=== PATIENT | male | born 1965 | race Caucasian/White ===

== ENCOUNTER → 2018-03-20 08:33 | Outpatient (CLI) | payer OTHER, SELFPAY ==
--- NOTE | 2018-03-20 08:35 | RAD_ITS ---
STUDY: X-RAY - LUMBOSACRAL SPINE REASON FOR EXAM: Male, 52 years old. LOWER BACK PAIN TECHNIQUE: 6 view(s) of the lumbosacral spine were obtained. COMPARISON: None FINDINGS: Normal lumbar lordosis. There is no substantial scoliosis. There is normal alignment of the vertebrae. Normal vertebral bodies and endplates. Normal disc space heights. Normal bilateral sacral ala, sacroiliac joints, and visualized sacrum. Normal visualized soft tissue structures. RAD/L/S Spine Comp/w Bending Views IMPRESSION: Normal x-ray examination of the lumbosacral spine. Electronically Signed: Reji Mcmullen MD at 16:54 EDT , Service support ,
== END ==
PROVIDERS: Family Provider Family Medicine; PCP Family Medicine; Visit Provider Orthopaedic Surgery
DX: S34.4XXA Injury of lumbosacral plexus, initial encounter (principal)
CPT/HCPCS: 72114

== ENCOUNTER → 2018-06-25 16:14 | Outpatient (CLI) | payer OTHER, SELFPAY ==
[2018-06-25 17:34] LABS: Amphetamine Urine VISTA POSITIVE (<1000 ng/mL); Barbiturate Urine VISTA NEGATIVE (< 200 ng/mL); Benzodiazepine Urine VISTA NEGATIVE (< 200 ng/mL); Cocaine Urine VISTA NEGATIVE (< 300 ng/mL); Ecstacy Urine VISTA POSITIVE (< 500 ng/mL); Methadone Urine VISTA NEGATIVE (< 300 ng/mL); PCP Urine VISTA NEGATIVE (< 25 ng/mL); THC Urine VISTA NEGATIVE (< 50 ng/mL); Vista UDS pH Range 6
== END ==
PROVIDERS: Family Provider Family Medicine; PCP Family Medicine; Visit Provider Anesthesiology Pain Medicine
DX: S34.139A Unspecified injury to sacral spinal cord, initial encounter (principal); S32.2XXA Fracture of coccyx, initial encounter for closed fracture; S34.4XXA Injury of lumbosacral plexus, initial encounter
CPT/HCPCS: 80307

== ENCOUNTER → 2018-11-12 16:48 | Outpatient (CLI) | payer OTHER, SELFPAY ==
[2018-03-20 11:03] VITALS: BMI 42.4
[2018-11-12 17:48] LABS: Amphetamine Urine VISTA POSITIVE (<1000 ng/mL); Barbiturate Urine VISTA NEGATIVE (< 200 ng/mL); Benzodiazepine Urine VISTA NEGATIVE (< 200 ng/mL); Cocaine Urine VISTA NEGATIVE (< 300 ng/mL); Ecstacy Urine VISTA POSITIVE (< 500 ng/mL); Methadone Urine VISTA NEGATIVE (< 300 ng/mL); PCP Urine VISTA NEGATIVE (< 25 ng/mL); THC Urine VISTA NEGATIVE (< 50 ng/mL); Vista UDS pH Range 6
== END ==
PROVIDERS: Family Provider Family Medicine; PCP Family Medicine; Referring Provider Anesthesiology Pain Medicine; Visit Provider Anesthesiology Pain Medicine
DX: G57.91 Unspecified mononeuropathy of right lower limb (principal); S34.139A Unspecified injury to sacral spinal cord, initial encounter; S32.2XXA Fracture of coccyx, initial encounter for closed fracture; S34.4XXA Injury of lumbosacral plexus, initial encounter
CPT/HCPCS: 80307

== ENCOUNTER 2019-07-26 02:17 | Emergency (ER) | payer OTHER, SELFPAY ==
[2019-07-26 02:18] VITALS: BP 161/98; PULSE 72; RESP 18; TEMP 36.6; O2SAT 96; BMI 41.6
--- NOTE | 2019-07-26 02:31 | EKG12_ITS ---
Test Reason : ABD PAIN Blood Pressure : / mmHG Vent. Rate : 069 BPM Atrial Rate : 069 BPM P-R Int : 182 ms QRS Dur : 096 ms QT Int : 398 ms P-R-T Axes : 045 -08 021 degrees QTc Int : 426 ms Normal sinus rhythm Minimal voltage criteria for LVH, may be normal variant Borderline ECG Confirmed by NATHANAEL WELCH, RAVEN ([id number]), story editor CLAUDINE CHU ([id number]) on 07/29/2019 3:33:06 PM Referred By: EDWIN Confirmed By:RAVEN HUFFMAN MD
--- NOTE | 2019-07-26 02:32 | ED.VIS.GEN ---
History of Present Illness Chief Complaint: Abd Pain Informant: Patient Narrative: Stated he started having some abdominal pain several hours ago that woke him up in the middle the night. He describes a twisting sensation in his left upper quadrant had no nausea or vomiting. He is having some loose bowel movements but no overt diarrhea. He had the same type of pain the night before that lasted throughout the evening that woke him up in the middle the night. It persisted until about 4 PM today and then went away and came back tonight. He is never had this before. He has had exploratory laparotomy in 1988 secondary to a fall. He had his gallbladder removed a couple years ago. Denies any fevers or chills. Denies any chest pain or shortness of breath. No home treatment. Current severity is mild to moderate. Worsened by nothing. Relieved by nothing. It does not appear to hurt when he pushes on it. Past Medical History - Allergies and Home Meds Allergies/Adverse Reactions: Allergies Penicillins Adverse Reaction (Verified 07/26/19 02:20) Rash Sulfa (Sulfonamide Antibiotics) Adverse Reaction (Verified 07/26/19 02:20) Rash Primary Care Physician: Scar Billy MD [NON-STAFF] - Collin Rogers MD [Primary Care Provider] - Prior records reviewed: Yes Past Medical History: - - Reviewed Surgical History: cholecystectomy, - - Exploratory laparotomy Smoking Status: Never smoker Alcohol: None Drugs: None Review of Systems General: Denies: Chills, Fever, Sweats Eyes: Denies: Visual changes - bilaterally, Diplopia ENT: Denies: Rhinorrhea, Sore throat Cardiovascular: Denies: Chest pain, Palpitations Respiratory: Denies: Dyspnea, Cough, Dyspnea on exertion Gastrointestinal: Reports: Abdominal pain. Denies: Nausea, Vomiting, Diarrhea, Melena, Hematochezia Genitourinary: Denies: Dysuria, Hematuria, Frequency Musculoskeletal: Denies: Back pain, Extremity Pain Skin: Denies: Rash, Wounds Neurological: Denies: Headache, Weakness, Numbness Physical Exam Vital Signs/Narrative: Vital Signs Temp Pulse Resp BP Pulse Ox 07/26/19 02:18 98 F 72 18 161/98 H 96 General: Well nourished, Well developed, No Acute Distress Head: Normocephalic, Atraumatic Eyes: Perrl, EOMI ENT: Moist mucous membranes, No rhinorrhea Neck: Supple, Nontender Cardiovascular: Regular rate, Regular rhythm, No murmurs Respiratory: No distress, CTA bilaterally, Chest nontender Abdomen: Soft, Nontender, Nondistended, Normal bowel sounds Back: Nontender, Normal Inspection Extremities: Nontender, No edema Skin: Normal color, No rash Neurological: Alert, Oriented x3, Cranial nerves II-XII grossly intact, Normal Strength, Normal Sensation Psychological: Normal affect, Normal Mood Diagnostic/Tx/Re-eval - Medical Decision Making Established given Toradol and Zofran and IV fluids. Lab work obtained. Lab work unremarkable including CBC BMP except for mildly low calcium. Liver function tests lipase is normal. Troponin negative EKG shows sinus rhythm at a rate of 69 without any acute ischemic findings. Patient stated that he continues to have burning pain in his left upper quadrant. Given a GI cocktail and Pepcid. At this time I think he likely has gastritis. I have a low suspicion for peptic ulcer but this is possible. He will follow-up with GI. He will avoid spicy foods. He will picker tender some [id number] Mylanta as well. He will follow-up with gastroenterology referral. He will return if he worsens. I do not think this is an [facility] do not feel he needs an emergent CAT scan ED Disposition - Plan for ED Patient: Disposition: Home or Assisted Living Diagnosis: Gastritis Instructions: GASTRITIS vs. ULCER Prescriptions: Famotidine [Pepcid] 40 mg PO DAILY #30 tab Famotidine [Pepcid] 40 mg PO DAILY #30 tab Prescription Printed Referrals: Collin Rogers MD [Primary Care Provider] - Scar Blily MD [NON-STAFF] -
[2019-07-26] MEDS: 0.9% Normal Saline 1,000 ML 125 ML IV (02:38)
[2019-07-26] MEDS: Ketorolac 30 MG/ML Syringe IV (02:39)
[2019-07-26] MEDS: Ondansetron 4 MG/2 ML Vial IV (02:39)
[2019-07-26 02:42] LABS: Absolute Lymphocyte Count 2.01 X10^3/uL (0.83-4.51); Absolute Neutrophil Count 2.8 X10^3/uL (2.0-7.7); Basophil# 0.02 X10^3/uL; Basophil% 0.4 % (0-1); Eosinophil# 0.18 X10^3/uL; Eosinophils% 3.3 % (0-5); Hematocrit 46.8 % (40-54); Hemoglobin 16.1 g/dL (13.0-16.5); Lymphocyte # 2.01 X10^3/ul (4.0); Lymphocyte % 37.1 % (19-41); Mean Corp Hgb Conc 34.4 g/dL (32-36); Mean Corpuscular Hgb 32.1 pg (27.0-32.0); Mean Corpuscular Volume 93.4 fL (80-94); Mean Platelet Vol. 11.2 fl (6.2-12.0); Monocyte# 0.44 X10^3/uL; Monocyte% 8.1 % (0-10); NRBC Flagged by Analyzer 0 % (0-5); Neutrophil # 2.76 X10^3/uL (2.7-7.7); Neutrophil % 50.9 % (47-70); POSITIVE COUNT YES; Platelet Count 117 K/mm3 (150-450); RBC Distribution Width CV 12.1 % (11.6-14.6); Red Blood Count 5.01 M/mm3 (4.6-6.2); White Blood Count 5.4 K/mm3 (4.4-11.0)
[2019-07-26 02:49] LABS: Differential Indicated SCAN CRITERIA MET
[2019-07-26 03:10] LABS: Differential Comment SCANNED; Platelet Estimate SLT DEC (ADEQ); Platelet Morphology LARGE
[2019-07-26 03:44] LABS: ALB/GLOB Ratio 1.1 RATIO (0.9-2.4); AST(SGOT) 17 U/L (15-37); Alanine Aminotransfer ALT/SGPT 31 U/L (16-61); Albumin, Serum 3.4 g/dL (3.2-5.0); Alkaline Phosphatase 54 U/L (45-117); Anion Gap 10 (5-15); BUN 12 mg/dL (7-18); BUN/Creat Ratio 9.7 RATIO (10-20); Calcium,Total 8.1 mg/dL (8.5-10.1); Chloride 107 mmol/L (98-107); Creatinine, Serum 1.24 mg/dL (0.70-1.30); EST Glomerular Filtration Rate 65 mL/min (>60); Est Glom Filt Rate - Afr Amer 78 mL/min (>60); Estimated Creatinine Clearance 59.93 ml/min; Glucose 129 mg/dL (74-106); Lipase 75 U/L (73-393); Potassium 3.9 mmol/L (3.5-5.1); Protein, Total 6.4 g/dL (6.4-8.2); Sodium Level 145 mmol/L (136-145)
[2019-07-26] MEDS: Famotidine 20 MG Tablet 40 MG PO (03:57)
[2019-07-26] MEDS: Mag Hydrox/Al Hydrox/Simeth 30 ML UDC PO (03:57)
[2019-07-26 04:03] VITALS: BP 150/89; PULSE 70; RESP 16; O2SAT 97
== END 2019-07-26 04:05 | disposition home or self-care (01) ==
PROVIDERS: Emergency Provider Emergency Medicine; Family Provider Family Medicine; PCP Family Medicine
DX: K29.70 Gastritis, unspecified, without bleeding (principal); Z90.49 Acquired absence of other specified parts of digestive tract
CPT/HCPCS: 36415; 80053; 83690; 84484; 85025; 93005; 96361; 96374; 96375; 99285; J7030; A4216; J2405

== ENCOUNTER 2019-10-28 12:52 | Day surgery (SDC) | payer OTHER, SELFPAY ==
--- NOTE | 2019-10-27 16:06 | HP.PCM_ITS ---
History and Physical Date of Admission: 10/28/19 Vic Conklin 1965 ? ? REFERRING PHYSICIAN: Collin Rogers MD ? CHIEF COMPLAINT: incisional ventral hernia ? HPI: The patient is a pleasant 53 year old male who presents with ventral incisional hernia. He had undergone exploratory laparotomy from trauma after three story fall at his occupation. Because of nerve problems, patient has to strain to empty bladder and also evacuate bowels. This causes increased pressure against abdominal wall. He had noted this prior to his gallbladder surgery in July 2017, however it was not bothering him and continued observation was done Presently, patient is noting increasing discomfort in the area for the past few months. Woke up with suddenly with pain in the hypogastric area on 07/25/19 and this persisted so he presented to ED at [facility] om 07/26/19. Presently, he states that it is twister frame tender, but no outright pain as above. Denies GI/ obstructive symptoms due to hernia. ? CT 07/30/19 IMPRESSION: No bowel containing abdominal wall or inguinal hernia. Fat-containing, epigastric, ventral hernia with haziness and stranding of the herniated fat suggesting edema/inflammation and possible incarceration. No intra-abdominal free air. No active contrast extravasation. No bowel obstruction. ?? PAST MEDICAL HISTORY ? ACNE NEC 10/13/2006 ? ANXIETY STATE NOS 12/26/2008 ? Depression ? ? Hypogonadism male 1988 ? Left knee pain ? ? Obesity ? ? AMANDA (obstructive sleep apnea) 2005 ? cpap ? PMH - PAST MEDICAL HISTORY OF ? ? L 5 nerve injury workman comp ? PMH - PAST MEDICAL HISTORY OF 1988 ? Industrial accident fall ? Thrombosed external hemorrhoid 10/26/2011 ? Unspecified site of spinal cord injury without evidence of spinal bone i njury 01/25/2013 ? PAST SURGICAL HISTORY ? COLONOSCOP W/ OR W/O [facility] SPEC ? 04/17/12 ? repeat 10 years ? LAPAROSCOPIC CHOLEYCYSTECTOMY ? 08/01/2017 ? Cholecystectomy, lap ? PAST SURGICAL HISTORY OF ? 1988 ? wrist fracture after work accident ? PAST SURGICAL HISTORY OF ? 1988 ? exploratory after accident ? REPAIR NASAL SEPTUM DEFECT ? ? ? VASECTOMY Bilateral 1999 ? ? Current Outpatient Medications: busPIRone (BUSPAR) 15 mg tablet Take 15 mg by mouth four times daily. Take 1/2 tablet 3x daily and 1 tablet at bedtime amphetamine-dextroamphetamine XR (ADDERALL XR) 15 mg 24 hr capsule Take 15 mg by mouth once daily. famotidine (PEPCID) 40 mg tablet Take 40 mg by mouth once daily. testosterone cypionate (DEPO-TESTOSTERONE) 200 mg/mL injection INJECT 1ML INTRAMUSCULARY EVERY THREE WEEKS diclofenac sodium (VOLTAREN) 1 % topical gel APPLY 4 GRAMS TO THE LOWER EXTREMITY JOINT WITH A MAXIMUM OF 16 GRAMS Tadalafil (CIALIS) 20 mg tab(s) TAKE 1 TABLET BY MOUTH 1-2 HOURS BEFORE SEXUAL INTERCOURSE NEEDED tramadol HCl (TRAMADOL ORAL) Take 50 mg by mouth three times daily. alfuzosin SR (UROXATRAL) 10 mg 24 hr tablet Take 1 tablet by mouth once daily. amphetamine-dextroamphetamine XR (ADDERALL XR) 15 mg 24 hr capsule Take 15 mg by mouth once daily. buPROPion SR (ZYBAN SR; WELLBUTRIN SR) 150 mg 12 hr tablet Take 150 mg by mouth twice daily. clonazePAM (KLONOPIN) 0.5 mg tablet 0.5 mg three times daily. 1 tablet three times daily acetaminophen (TYLENOL) 325 mg tablet Take 2 tablets by mouth every 6 hours as needed for Pain (maximum 3000 daily). cabergoline (DOSTINEX) 0.5 mg tablet TAKE 1/2 TABLET BY MOUTH EVERY MONDAY AND MONDAY (Patient not taking: Reported on ? ? ALLERGIES: Penicillin G; Sulfa (Sulfonamide Antibiotics); Celebrex [Celecoxib] ? PERSONAL HISTORY: Social History Socioeconomic History Marital status: Spouse name: Not on file Number of children: Not on file Years of education: Not on file Highest education level: Not on file Occupational History Not on file Social Needs Financial resource strain: Not on file Food insecurity: Worry: Not on file Inability: Not on file Transportation needs: Medical: Not on file Non-medical: Not on file Tobacco Use Smoking status: Never Smoker Smokeless tobacco: Never Used Substance and Sexual Activity Alcohol use: Yes Comment: rare Drug use: No Sexual activity: Yes Partners: Female Lifestyle Physical activity: Days per week: Not on file Minutes per session: Not on file Stress: Not on file Relationships Social connections: Talks on phone: Not on file Gets together: Not on file Attends sikh service: Not on file Active member of club or organization: Not on file Attends meetings of clubs or organizations: Not on file Relationship status: Not on file Intimate partner violence: Fear of current or ex partner: Not on file Emotionally abused: Not on file Physically abused: Not on file Forced sexual activity: Not on file Other Topics Concerns: Not on file Social History Narrative Not on file ? FAMILY HISTORY ? Heart Mother ? ? Hypertension Mother ? ? Cancer Father ? ? lung ? None Brother ? ? None Brother ? ? other (lymphoma) Sister ? ? other (car accident) Sister ? ? ? REVIEW OF SYSTEMS: (obtained by nursing staff and reviewed by me) General: The patient notes fatigue, denies weight loss, notes weight gain, denies feeling hot, and denies feelings of cold. Eyes: The patient denies glaucoma, denies eye injury/surgery, wears glasses or contacts. Ear/Nose/Throat: The patient denies allergies, denies hayfever, denies ear infections, and denies bloody noses. Cardiovascular: The patient denies chest pain, denies heart disease, denies high blood pressure,denies cardiac stent, denies prior heart attack, denies irregular heart beat, denies high cholesterol, denies poor circulation, denies heart failure, other cardiac issues, denies claudication, denies cold feet, denies peripheral arterial stent. Respiratory: The patient denies tuberculosis, denies pneumonia, denies frequent cough, denies pulmonary embolism, denies shortness of breath, and denies coughing up blood. Gastrointestinal: The patient denies difficulty swallowing, denies acid reflux, denies ulcers, denies vomiting, denies jaundice/hepatitis, notes gallbladder problems, denies black or tarry stools, denies hemorrhoids, denies bleeding from rectum, denies diverticulitis, denies constipation, denies diarrhea, NOTES loss of stool control, and NOTES hernias. Kidney/Bladder: The patient denies kidney stones, denies urine infections, and denies bloody urine. Skin: The patient denies a history of skin cancer, denies bleeding/changing moles, and denies a history of skin rash. Neurologic: history of closed head injury, L5 radiculopathy as a result of accident, notes sexual dysfunction Psychiatric: The patient notes psychiatric medications, notes depression, and denies voices, denies substance abuse. Endocrine: The patient denies thyroid disorders, denies diabetes, and notes hormonal problems. Hematologic: The patient denies a history of bruising, denies bleeding, and denies anemia, denies blood clots. Infections: The patient denies a history of measles and mumps, denies rheumatic fever, and denies sexually transmitted diseases. Musculoskeletal: history of pelvic fracture ? PHYSICAL EXAMINATION: General: The patient is 53 year old male, well nourished, well hydrated in no acute distress. The patient is oriented to time, place, and person. VITALS: Blood pressure 144/98, pulse 85, temperature 36.4 ?C (97.6 ?F), t emperature source Temporal Artery, weight 112.4 kg (247 lb 12.8 oz), SpO2 100 %. Body mass index is 39.36 kg/m?. Head ? Normocephalic. EOM intact with sclera clear and no icterus noted. Wearing glasses. Mouth with mucus membranes moist. Neck - supple with no jugular venous distention noted. Trachea is midline. No carotid bruits noted. No masses noted. Lungs ? clear to auscultation. Normal breath sounds. No rales/rhonchi/wheezing noted. No labored breathing noted, such as retractions. No cough heard. Heart ? normal S1 and S2 auscultated. No rubs/clicks/murmurs noted. Regular rate. Abdomen ? soft and benign. Normal bowel sounds. Healed midline abdominal incision with fascial weakening along its length. Patient points to area above the umbilicus with palpable small fascial defect. There may be more than one. Minimal tenderness in the area No peritoneal signs noted Extremities ? no calf tenderness noted. No pitting edema noted. Right foot drop Skin ? normal skin integrity. Neurological ? foot drop noted, patient with right sided numbness - buttock/extremity Psych ? calm and appropriate ?? IMPRESSION: incisional ventral hernia exacerbated by increased intraabdominal pressure required because of patient's bowel and bladder emptying dysfunction ? PLAN: I have discussed the above with the patient. I have offered patient incisional ventral hernia repair, possible use of mesh. I have explained the procedure to the patient. I have counseled the patient as to the risks of the procedure, including but not limited to: infection, bleeding, injury to any blood vessels/nerves, scar tissue, injury to any intraabdominal organs, injury to bowel/bladder, intraabdominal abscess/bleeding, recurrence of hernia, wound infections, complications of anesthesia, etc. ? the patient understands. The patient wishes to proceed. I have answered all questions to the patient?s satisfaction and the patient has no further questions. . Diagnoses: (K43.2) Incisional hernia, without obstruction or gangrene (primary encounter diagnosis) Return to Clinic: The patient is instructed to follow-up with me after the procedure and as above. ?
[2019-10-28] MEDS: Lactated Ringers 1,000 ML 75 ML IV (07:00)
[2019-10-28 13:20] VITALS: BP 149/72; PULSE 72; RESP 16; TEMP 36.8; O2SAT 95; BMI 42.9
[2019-10-28 13:30] LABS: Hematocrit 47.8 % (40-54); Hemoglobin 16.4 g/dL (13.0-16.5); Mean Corp Hgb Conc 34.3 g/dL (32-36); Mean Corpuscular Hgb 32.5 pg (27.0-32.0); Mean Corpuscular Volume 94.7 fL (80-94); Platelet Count 149 K/mm3 (150-450); RBC Distribution Width CV 12.9 % (11.6-14.6); RBC Distribution Width SD 45.1 fl (35.1-43.9); Red Blood Count 5.05 M/mm3 (4.6-6.2); White Blood Count 4.8 K/mm3 (4.4-11.0)
--- NOTE | 2019-10-28 15:31 | DCINST_ITS ---
Discharge Diet: No Restrictions Discharge Activity: Return to Normal Activity, May not drive while taking narcotic pain medications. Lifting Restrictions: no lifting greater than 5 pounds Call your doctor if your incision/area has: Continuous Slow Oozing, Foul Smelling Discharge Call your doctor if you observe: Fever of 101 or Higher Additional Dressing/Incision Instructions:: Leave dressings in place. May get wet in shower. Do not soak - no tub baths/swimming. May remove abdominal binder prn Allergies/Adverse Reactions: Allergies Penicillins Adverse Reaction (Verified 10/28/19 13:11) Rash Sulfa (Sulfonamide Antibiotics) Adverse Reaction (Verified 10/28/19 13:11) Rash Medications to take at Discharge Bupropion HCl [Wellbutrin Sr] 150 mg PO BID 07/31/17 Clonazepam [Klonopin] 0.5 mg PO 4X/DAY 07/31/17 Diclofenac Sodium [Voltaren] 4 gm TOPICAL Q6H PRN 07/31/17 Testosterone Cypionate 200 mg IM X1 07/31/17 tadalafil 20 mg tablet 20 mg PO ONCE PRN 03/20/18 Alfuzosin HCl [Alfuzosin HCl ER] 10 mg PO QHS 07/26/19 Dextroamphetamine/Amphetamine [Adderall 15 mg Tablet] 15 mg PO BID 07/26/19 busPIRone [Buspar] 7.5 mg PO TID 07/26/19 busPIRone [Buspar] 15 mg PO QHS 07/26/19 traMADol [Ultram (G)] 50 mg PO TID 07/26/19 Acetaminophen [Tylenol Extra Strength] 500 mg PO BID 10/25/19 Cabergoline 0.025 mg PO DSOUZA 10/25/19 Lidocaine 4% Topical [Xylocaine Topical] 50 ml TOPICAL PRN PRN 10/25/19 Primary Care Physician: Collin Rogers MD [Primary Care Provider] - Test Results: Test results from this visit will be discussed in further detail at your follow- up appointment, if applicable. Please Follow Up With: Natali Butler MD - call When: to be seen in 1-2 weeks, please call for date and time, thank you
[2019-10-28 15:46] VITALS: BP 119/92; BP 149/72; PULSE 93; RESP 16; TEMP 36.4; O2SAT 92
--- NOTE | 2019-10-28 15:56 | OP.PCM_ITS ---
Report of Operation Date of Procedure: 10/28/19 Pre-Operative Diagnosis: incisional ventral hernia Post-Operative Diagnosis: incisional ventral hernia -incarcerated with preperitoneal fat Surgery/Procedure Performed:: repair of incarcerated ventral incisional hernia Description of Surgical Findings:: 2 cm incisional hernia superior to umbilical dimple with incarcerated preperitoneal fat feller machine operator: Nate Goodwin Type of Anesthesia:: General Anesthesiologist: Onel Pace Specimen's removed: none Estimated Blood Loss (mL): minimal Fluids Replaced: see anesthesia note Description of Procedure: After informed consent was obtained, the patient was brought to the Operating Room. Appropriate time out protocol was followed. He was then placed in the supine position. The patient was then placed under anesthesia. The abdomen was then prepped with a sterile surgical skin preparation. Sterile surgical drapes were placed. This skin and subcutaneous tissues were then widely infiltrated with the local anesthetic. A skin incision was then made with a 15 blade scalp el over the hernia site as marked in the preoperative area. It was made at the previous incision site. It was carried down to the subcutaneous tissues using sharp dissection. Any hemorrhage was adequately controlled with electrocautery. Blunt dissection was done to separate the subcutaneous tissues from the hernia sac. This was done surrounding the entire hernia which was incarcerated preperi toneal fatty tissues. Dissection was bluntly carried down to the base of the hernia and the fascial defect was identified. It was 2 cm in maximum dimension. The sac once freed of the subcutaneous tissues was then freed from the edges of the fascia. The sac and contents were then reduced into the intraabdominal cavity. The fascial defect was then reapproximated transversely with interrupted 0 PDS suture. Once the repair was completed, it was tested, no other fascial defects in the area were noted. Hemostasis of the wound was controlled with electrocautery. The subdermis was reapproximated with interrupted 3-0 vicryl sutures. The skin incision was reapproximated with a running 4-0 Monocryl suture. Cavilon and steristrips were placed to reinforce the skin closure and a sterile opsite dressing was applied. The patient was brought from to the Recovery Room in stable condition. - Complications none noted - Admit VTE Documentation VTE Present on Admission: Yes VTE Mechan Device Prophylaxis: SCD's
[2019-10-28 16:00] VITALS: BP 122/74; BP 149/72; PULSE 90; RESP 16; O2SAT 92
[2019-10-28 16:15] VITALS: BP 124/74; BP 149/72; PULSE 86; RESP 16; O2SAT 93
[2019-10-28 16:30] VITALS: BP 121/88; BP 149/72; PULSE 81; RESP 16; TEMP 521.6; TEMP 971; O2SAT 92
[2019-10-28 18:02] VITALS: BP 139/83; BP 149/72; PULSE 76; RESP 16; TEMP 36.6; O2SAT 95
== END 2019-10-28 18:20 | disposition home or self-care (01) ==
LOC: SDC 12:53 → AC 12:57
PROVIDERS: Anesthesiology; Family Provider Family Medicine; PCP Family Medicine; Referring Provider Surgery; Visit Provider Surgery
PROC: (CPT 49561; principal; 2019-10-28 14:00)
DX: K43.0 Incisional hernia with obstruction, without gangrene (principal); G47.33 Obstructive sleep apnea (adult) (pediatric); F32.9 Major depressive disorder, single episode, unspecified; F41.1 Generalized anxiety disorder; E66.9 Obesity, unspecified; Z68.41 Body mass index [BMI] 40.0-44.9, adult; Z88.6 Allergy status to analgesic agent; Z88.2 Allergy status to sulfonamides; Z88.0 Allergy status to penicillin; Z79.899 Other long term (current) drug therapy; Z90.49 Acquired absence of other specified parts of digestive tract
CPT/HCPCS: 00832; 49561; 85027; J7050; J7120; J2405

== ENCOUNTER → 2020-01-02 11:41 | Outpatient (CLI) | payer OTHER, SELFPAY ==
[2020-01-02 12:41] LABS: Amphetamine Urine VISTA POSITIVE (<1000 ng/mL); Barbiturate Urine VISTA NEGATIVE (< 200 ng/mL); Benzodiazepine Urine VISTA NEGATIVE (< 200 ng/mL); Cocaine Urine VISTA NEGATIVE (< 300 ng/mL); Ecstacy Urine VISTA POSITIVE (< 500 ng/mL); Methadone Urine VISTA NEGATIVE (< 300 ng/mL); PCP Urine VISTA NEGATIVE (< 25 ng/mL); THC Urine VISTA NEGATIVE (< 50 ng/mL); Vista UDS pH Range 5
== END ==
PROVIDERS: PCP Family Medicine; Referring Provider Anesthesiology Pain Medicine; Visit Provider Anesthesiology Pain Medicine
DX: G57.91 Unspecified mononeuropathy of right lower limb (principal); S34.139A Unspecified injury to sacral spinal cord, initial encounter; S32.2XXA Fracture of coccyx, initial encounter for closed fracture; S34.4XXA Injury of lumbosacral plexus, initial encounter
CPT/HCPCS: 80307

== ENCOUNTER → 2020-11-30 11:15 | Outpatient (CLI) | payer OTHER, SELFPAY ==
[2020-11-30 12:00] LABS: Amphetamine Urine VISTA NEGATIVE (<1000 ng/mL); Barbiturate Urine VISTA NEGATIVE (< 200 ng/mL); Benzodiazepine Urine VISTA NEGATIVE (< 200 ng/mL); Cocaine Urine VISTA NEGATIVE (< 300 ng/mL); Ecstacy Urine VISTA NEGATIVE (< 500 ng/mL); Methadone Urine VISTA NEGATIVE (< 300 ng/mL); PCP Urine VISTA NEGATIVE (< 25 ng/mL); THC Urine VISTA NEGATIVE (< 50 ng/mL); Vista UDS pH Range 6
== END ==
PROVIDERS: PCP Family Medicine; Referring Provider Anesthesiology Pain Medicine; Visit Provider Anesthesiology Pain Medicine
DX: F11.20 Opioid dependence, uncomplicated (principal)
CPT/HCPCS: 80307

== ENCOUNTER 2021-02-02 19:52 | Emergency (ER) | payer OTHER, SELFPAY ==
[2021-02-02 19:53] VITALS: BP 158/99; PULSE 91; RESP 18; TEMP 37.2; O2SAT 94; BMI 39.9
--- NOTE | 2021-02-02 20:17 | ED.VIS.GEN ---
History of Present Illness Chief Complaint: Laceration Informant: Patient Narrative: Patient is a 55-year-old male who presents to the emergency department for laceration to dorsal aspect of right thumb. He was working with metal and had a double end production grinder out. He states he tripped and his thumb hit the double end production grinder wheel when it was turned on. Bleeding has been controlled prior to arrival in the ED. He denies any loss of range of motion. No loss of sensation. He is right-handed at baseline. Patient is not sure when his last tetanus shot was. He denies any other injury. He is not on blood thinning medications. He is not diabetic. Past Medical History - Allergies and Home Meds Allergies/Adverse Reactions: Allergies Penicillins Allergy (Verified 10/28/19 15:44) Rash Sulfa (Sulfonamide Antibiotics) Allergy (Verified 10/28/19 15:44) Rash celecoxib [From Celebrex] Adverse Reaction (Verified 02/02/21 19:55) Rash Primary Care Physician: Collin Rogers MD [Primary Care Provider] - 7 Days for suture removal Prior records reviewed: Yes Surgical History: cholecystectomy, - - Exploratory laparotomy Smoking Status: Never smoker Review of Systems All systems negative except as indicated General: Denies: Chills, Fever ENT: Denies: Rhinorrhea, Sore throat Cardiovascular: Denies: Chest pain Respiratory: Denies: Dyspnea, Dyspnea on exertion Gastrointestinal: Denies: Abdominal pain, Nausea, Vomiting, Diarrhea, Melena Musculoskeletal: Reports: Extremity Pain. Denies: Neck pain, Back pain, Swelling Skin: Reports: Wounds. Denies: Rash Neurological: Denies: Headache, Weakness, Numbness Hematologic: Denies: Easy bruising, Easy bleeding Physical Exam Vital Signs/Narrative: Vital Signs Temp Pulse Resp BP Pulse Ox 02/02/21 19:53 99.0 F 91 18 158/99 H 94 Inital Vital Signs reviewed: Yes General: Well nourished, Well developed Head: Normocephalic, Atraumatic Eyes: Perrl, EOMI Neck: Supple, Nontender Cardiovascular: Regular rate, Regular rhythm Respiratory: No distress, CTA bilaterally Abdomen: Nondistended Extremities: - - Brisk capillary refill to thumb. No active bleeding. Full range of motion present. Sensation intact. Skin: Normal color, No rash, Trauma - 2.5 cm linear laceration to the dorsal aspect of right thumb. No active bleeding. No foreign body appreciated. Neurological: Alert, Normal Strength, Normal Sensation Psychological: Normal affect, Normal Mood Diagnostic/Tx/Re-eval - Medical Decision Making Patient presents to the ED for laceration to right thumb. Will update them on tetanus. Thumb was soaked in iodine water. Digital block was performed and laceration was repaired. Antibiotic ointment applied. Sutures will need to be removed in 7 to 10 days. He is to monitor for evidence of infection. Return precautions are reviewed. He understands and is agreeable with plan. Discharged home in stable condition. All questions answered. Procedures Procedure(s): Laceration repair: Informed consent was obtained before procedure started. The appropriate timeout was taken. The area was prepped and draped in the usual sterile fashion. Local anesthesia was achieved using digital block with 5cc of lidocaine 1% without epinephrine. The wound was copiously irrigated. 4 5-0 Ethilon simple interrupted sutures were placed. A dressing was applied to the area and anticipatory guidance, as well as standard post procedure care, was explained. Return precautions are given. The patient tolerated the procedure well without any apparent complications. Follow-up visit set for suture removal and evaluation of laceration. ED Disposition - Plan for ED Patient: Disposition: Home or Assisted Living Diagnosis: Thumb laceration Instructions: ED Laceration: All Closures Referrals: Collin Rogers MD [Primary Care Provider] - 7 Days for suture removal
[2021-02-02] MEDS: Diphth,Pertuss(Acell),Tet Vac 0.5 ML Vial IM (20:47)
[2021-02-02] MEDS: Lidocaine 1% (20 ml mdv) 20 ML Vial 5 ML INFILT (20:50)
[2021-02-02 21:17] VITALS: PULSE 89; RESP 17; O2SAT 99
[2021-02-02 21:58] VITALS: BP 132/75; PULSE 88; RESP 14; O2SAT 98
== END 2021-02-02 21:59 | disposition home or self-care (01) ==
PROVIDERS: Emergency Provider Emergency Medicine; PCP Family Medicine
DX: S61.011A Laceration without foreign body of right thumb without damage to nail, initial encounter (principal); W31.89XA Contact with other specified machinery, initial encounter; Y93.89 Activity, other specified; Y92.9 Unspecified place or not applicable; Y99.9 Unspecified external cause status
CPT/HCPCS: 12001; 90471; 90715; 99282

== ENCOUNTER → 2021-05-17 07:06 | Outpatient (CLI) | payer OTHER, SELFPAY ==
--- NOTE | 2021-05-17 08:24 | TELEMED_ITS ---
[facility] has confirmed receipt of a request for visit. This document confirms receipt of the order initiating the consult. To find the results of the consultation, please view the patient's reports for the scanned Telemed Consult.
== END ==
PROVIDERS: PCP Family Medicine; Referring Provider Psychiatry & Neurology Sleep Medicine; Visit Provider Psychiatry & Neurology Sleep Medicine
DX: R41.3 Other amnesia (principal); G31.84 Mild cognitive impairment of uncertain or unknown etiology; G47.33 Obstructive sleep apnea (adult) (pediatric); F32.9 Major depressive disorder, single episode, unspecified; F41.9 Anxiety disorder, unspecified; Z87.820 Personal history of traumatic brain injury
CPT/HCPCS: 95819

== ENCOUNTER 2022-02-21 09:46 | Emergency (ER) | payer OTHER, SELFPAY ==
[2022-02-21 09:48] VITALS: BP 150/82; PULSE 71; RESP 17; TEMP 35.8; O2SAT 96; BMI 44.7
--- NOTE | 2022-02-21 10:29 | EDS_ITS ---
HPI History of Present Illness Chief Complaint: Numb/Ting Detail of Chief Complaint: Right-sided facial numbness and tongue numbness Informant: patient Onset/Context/Timing Onset: Weeks (3 to 4 weeks) Context: Sudden Onset Timing: Continuous Quality and Location: Positive for Right Face Paresthesia Current Severity: Mild Maximum Severity: Mild Worsened by: Nothing, patient pleased because he discontinued his antidepressant medicat Relieved by: Nothing Associated Symptoms Associated Symptoms: Negative for Headache, Nausea, Vomiting and Chest Pain Narrative Narrative: Patient is a 56-year-old male with history of depression who discontinued his antidepressant medication 3 to 4 weeks ago. He states shortly afterwards he noted numbness involving his tongue and right side of his face. He denies drooling when he eats or drinks anything. He denies headache. He denies double vision, blurred vision loss of vision. He denies asymmetry of his smile. He denies neck pain. He denies cardiac or respiratory symptoms. He denies GI symptoms. He denies paresthesia, anesthesia or motor weakness of his upper or lower extremity. 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 Otherwise he has no neurologic symptoms in his extremities. Prior similar symptoms: No Recent Illness/Hospitalization: No [facility] Medical History Anxiety Depression Hypertension Home Medications diclofenac sodium 4 gm TOPICAL Q6H PRN 07/31/17 [History Last Taken Unknown] tadalafil 20 mg tablet 20 mg PO ONCE PRN 03/20/18 [History Last Taken Unknown] hydrochlorothiazide 12.5 mg PO DAILY #30 tab 02/21/22 [Rx Last Taken Unknown] Allergy/AdvReac Type Severity Reaction Status Date / Time Penicillins Allergy Rash Verified 02/21/22 09:47 Sulfa (Sulfonamide Allergy Rash Verified 02/21/22 09:47 Antibiotics) celecoxib [From Celebrex] AdvReac Rash Verified 02/21/22 09:47 Family History Father Cancer Mother CVA (cerebral vascular accident) Heart disease Surgical History h/o wrist surgery History of cholecystectomy History of left hip replacement Social History (Updated 02/21/22 @ 10:[address] James Hope MD) household members: none Smoking Status: Never smoker substance use type: does not use ROS ROS ED Constitutional Constitutional ED: Denies chills, fever(s), subjective, sweats or weakness Eyes Eyes: Denies blurry vision, change in vision or diplopia ENT ENT ED: Denies ear pain, rhinorrhea or sore throat Cardiovascular Cardiovascular: Denies chest pain, palpitations or racing heartbeat Respiratory/Chest Respiratory/Chest: Denies cough, dyspnea or dyspnea on exertion Gastrointestinal Gastrointestinal: Denies abdominal pain, diarrhea, nausea or vomiting Genitourinary Genitourinary ED: Denies dysuria or hematuria Musculoskeletal Musculoskeletal: Denies arthralgias, back pain, myalgias or neck pain Integumentary Denies rash Neurologic Neurologic: Reports other Details: Paresthesia right side of the face with sparing of forehead ; Denies headache(s) or weakness Psychiatric Psychiatric: Reports depression Endocrine Endocrinology: Denies polydipsia or polyuria Hematologic/Lymphatic Hematologic/Lymphatic: Denies easy bleeding or easy bruising EXAM Physical Exam Const Vital Signs: 02/21/22 09:48 02/21/22 11:15 02/21/22 11:19 Temperature 96.4 F L Temperature Source Temporal Pulse Rate 71 67 Respiratory Rate 17 19 H Blood Pressure 150/82 H 156/88 H Blood Pressure Mean 104 110 Pulse Ox 96 95 Oxygen Delivery Method Room Air Room Air Room Air 02/21/22 13:30 Temperature Temperature Source Pulse Rate 64 Respiratory Rate 14 Blood Pressure 150/86 H Blood Pressure Mean 107 Pulse Ox 97 Oxygen Delivery Method Room Air Positive well nourished, well developed and obese General Appearance ED: well developed and NAD Nutritional Appearance: obese HEENT Reports TM's clear atraumatic; Negative for trauma Nose: other Other Details: Nares patent. Uvula midline. No deviation tongue with protrusion. Ears normal. TMs normal. Tympanic Membrane ED: Yes TM's clear Eyes PERRL and EOMs intact bilaterally General Eye ED: Yes other Other Details: No APD. No papilledema. ; Negative for pale conjunctiva or scleral icterus Neck no lymphadenopathy, supple and no JVD Neck Narrative: There are no carotid bruits. Chest Wall inspection of chest normal and palpation of chest normal Resp normal respiratory effort and clear to auscultation bilaterally Cardio no murmurs Rate: regular rate Heart Sounds: S1 normal and S2 normal GI normal to inspection, nondistended, normoactive bowel sounds, soft to palpation, non-tender and non-distended Back/Spine no CVA tenderness Cervical Spine: Negative for cervical spine tenderness Thoracic Spine / Upper Back: Negative for thoracic spinal tenderness Lumbar Spine / Lower Back: Negative for lumbar spinal tenderness Extremity normal to inspection Extremity Narrative: Radial, DP and PT pulse are palpable and symmetric General Extremety ED: Negative for deformity or tenderness General Extremity: Negative for deformity Neuro oriented x3, No CN's II-XII intact bilaterally and No no sensory deficits noted Neuro Narrative: Altered sensation right side of face with sparing of forehead. Jnu Coma Scale: document GCS findings Spontaneous Obeys Commands Oriented 15 Sensorium / Orientation: alert Speech: speech normal Motor Exam: strength 5/5 throughout Psych mental status grossly normal Skin no wounds Lesions: no lesions Rashes: no rashes STROKE Vital Signs/Narrative: Vital Signs Pulse Resp BP Pulse Ox 02/21/22 13:30 64 14 150/86 H 97 02/21/22 11:15 67 19 H 156/88 H 95 NIHSS Initial: 1a Level of Consciousness: 0 1b LOC Questions (Score 2 if aphasic/stupor): 0 1c LOC Commands (Only score 1st attempt): 0 2 Best Gaze (If aphasic, use reflexive mvmts.): 0 3 Visual: 0 4 Facial Palsy: 0 5 Motor Arm Right (UN = amputation/fusion): 0 5 Motor Arm Left: 0 6 Motor Leg Right: 0 6 Motor Leg Left: 0 7 Limb ataxia (Only + if out of proportion): 0 8 Sensory (Aphasia/stupor=0 or 1, coma=2): 1 9 Best Language: 0 10 Dysarthria (mute, coma=2, intubated=UN): 0 11 Extinction and Inattention (only scored if +): 0 Total Score: 1 MDM MDM MDM Narrative Medical decision making narrative: With symptoms started over 3 weeks ago that have been persistent and concerned this represents a central 7th cranial nerve lesion will obtain MR RI of the brain. After entering orders per CMS indications recommendation was MRI and MRA of the brain. Basic blood work was obtained. Patient was informed that this is not related to his antidepressant medication and need to rule out a small stroke. Lab Data Attestation: I reviewed the patient's lab results. Lab results narrative: Patient is mildly neutropenic. H&H and platelet count are normal with normal. Electrolyte panel is unremarkable. Labs: Laboratory Results - last 24 hr 02/21/22 02/21/22 11:05 11:05 WBC 4.2 L RBC 4.65 Hgb 14.2 Hct 42.8 MCV 92.0 MCH 30.5 MCHC 33.2 RDW Std Deviation 41.8 RDW Coeff of Janett 12.4 Plt Count 156 MPV 10.3 Immature Gran % (Auto) 0.200 Neut % (Auto) 51.5 Lymph % (Auto) 33.3 Willacy % (Auto) 9.3 Eos % (Auto) 5.2 H Baso % (Auto) 0.5 Absolute Neuts (auto) 2.2 Absolute Lymphs (auto) 1.40 Nucleated RBC % 0 Sodium 140 Potassium 4.7 Chloride 108 H Carbon Dioxide 29.0 Anion Gap 3 L BUN 16 Creatinine 0.72 Estim Creat Clear Calc 99.65 Est GFR (MDRD) Af Amer 145 Est GFR (MDRD) Non-Af 120 BUN/Creatinine Ratio 22.2 H Glucose 91 Calcium 9.0 Radiography Diagnostic Testing: Clinical Impression(s) from Imaging Studies Brain MRI 02/21/22 11:17 IMPRESSION: No evidence of acute ischemia. 5 mm focal right frontal white matter findings suggestive of chronic microvascular change. Electronically Signed: Rigoberto Araujo MD at 14:06 EDT Reading Location ID and State: [address] [place] [address] Tel , Service support , Stroke Documentation Questions Stroke Team Activated: No Reviewed Inclusion/Exclusion criteria: No Was Patient considered for Endovascular Intervention?: No-CTA not indicated IV Alteplase (t-PA) Administered: No No contraindications for IV Alteplase (t-PA) administration.: No Discharge Plan Triage Chief Complaint: Numb/Ting ED Provider: James Hope Dx/Rx/DC Orders Clinical Impression: Facial paresthesia, Ischemic stroke of frontal lobe, Hypertension Instructions: ED Stroke, Completed, ED Hypertension New Begin Treatment, ED Paraesthesias Prescriptions: New hydrochlorothiazide 12.5 mg tablet 12.5 mg PO DAILY Qty: 30 RF: 0 No Action tadalafil 20 mg tablet 20 mg PO ONCE PRN (Reason: ed) RF: 0 diclofenac sodium 100 GM gel 4 gm TOPICAL Q6H PRN (Reason: Pain Or Fever) RF: 0 Primary Care Provider: Collin Rogers Referrals: Collin Rogers MD [Primary Care Provider] - 1-2 Weeks Activity Restrictions/Additional Instructions: You need to take an aspirin a day. Take the blood pressure medicine you were prescribed once daily in the morning; you will urinate more for the first week or 2. Disposition Disposition: Home, Self Care
--- NOTE | 2022-02-21 10:36 | EKG12_ITS ---
Test Reason : NEURO S/SX Blood Pressure : / mmHG Vent. Rate : 066 BPM Atrial Rate : 066 BPM P-R Int : 182 ms QRS Dur : 088 ms QT Int : 430 ms P-R-T Axes : 041 001 036 degrees QTc Int : 450 ms Normal sinus rhythm Normal ECG Confirmed by ARGENIS WELCH, GRETCHEN ([id number]), editor school photograph JAKE AVILES ([id number]) on 02/22/2022 8:31:19 AM Referred By: STEPAN Confirmed By:GRETCHEN MORE MD
[2022-02-21 11:14] LABS: Absolute Neutrophil Count 2.2 X10^3/uL (2.0-7.7); Basophil# 0.02 X10^3/uL; Basophil% 0.5 % (0-1); Eosinophil# 0.22 X10^3/uL; Eosinophils% 5.2 % (0-5); Hematocrit 42.8 % (40-54); Hemoglobin 14.2 g/dL (13.0-16.5); Lymphocyte % 33.3 % (19-41); Mean Corp Hgb Conc 33.2 g/dL (32-36); Mean Corpuscular Hgb 30.5 pg (27.0-32.0); Mean Platelet Vol. 10.3 fl (6.2-12.0); Monocyte# 0.39 X10^3/uL; Monocyte% 9.3 % (0-10); NRBC Flagged by Analyzer 0 % (0-5); Neutrophil # 2.17 X10^3/uL (2.7-7.7); Neutrophil % 51.5 % (47-70); Platelet Count 156 K/mm3 (150-450); RBC Distribution Width CV 12.4 % (11.6-14.6); RBC Distribution Width SD 41.8 fl (35.1-43.9); Red Blood Count 4.65 M/mm3 (4.6-6.2); White Blood Count 4.2 K/mm3 (4.4-11.0)
[2022-02-21 11:15] VITALS: BP 156/88; PULSE 67; RESP 19; O2SAT 95
--- NOTE | 2022-02-21 11:17 | MRI_ITS ---
EXAM: MR HEAD WITHOUT AND WITH INTRAVENOUS CONTRAST CLINICAL INDICATION: Suspect acute stroke, RT FACIAL NUMBNESS TECHNIQUE: Multiplanar and multisequence MR images of the brain were obtained without and with intravenous contrast. This report was created using [employer] report onkea technology. CONTRAST: IV 24ML DOTAREM COMPARISON: None. FINDINGS: BRAIN AND EXTRA-AXIAL SPACES: 5 mm focus of increased T2 signal intensity within the right frontal white matter may represent chronic microvascular change. Remainder of the brain signal intensity is normal. No intra- or extra-axial hemorrhage. No evidence of acute infarct. No intracranial mass or mass effect. There is preservation of the fernando/white matter interface. Posterior fossa structures are unremarkable. Ventricles are appropriate for age. No hydrocephalus. Basal cisterns are patent. SELLA: Unremarkable. Normal sella turcica, pituitary gland, infundibular stalk, optic chiasm and hypothalamus. AUDITORY SYSTEM: Unremarkable. The internal auditory canals are patent. BONES/JOINTS: Unremarkable. No discrete lytic or blastic abnormalities. SINUSES: Unremarkable as visualized. Clear. MASTOID AIR CELLS: Unremarkable as visualized. Clear. ORBITS: Unremarkable as visualized. Both globes, extraocular muscles, optic nerves and retrobulbar fat appear unremarkable. VASCULATURE: Unremarkable as visualized. Normal flow voids in the major intracranial circulation. MRI/Brain W/WO Contrast IMPRESSION: No evidence of acute ischemia. 5 mm focal right frontal white matter findings suggestive of chronic microvascular change. Electronically Signed: Rigoberto Araujo MD at 14:06 EDT ,
[2022-02-21 11:27] LABS: Anion Gap 3 (5-15); BUN 16 mg/dL (7-18); BUN/Creat Ratio 22.2 RATIO (10-20); Chloride 108 mmol/L (98-107); Creatinine, Serum 0.72 mg/dL (0.70-1.30); EST Glomerular Filtration Rate 120 mL/min (>60); Est Glom Filt Rate - Afr Amer 145 mL/min (>60); Estimated Creatinine Clearance 99.65 ml/min; Glucose 91 mg/dL (74-106); Potassium 4.7 mmol/L (3.5-5.1); Sodium Level 140 mmol/L (136-145)
[2022-02-21 13:30] VITALS: BP 150/86; PULSE 64; RESP 14; O2SAT 97
[2022-02-21 14:24] VITALS: BP 151/93
== END 2022-02-21 14:26 | disposition home or self-care (01) ==
PROVIDERS: Emergency Provider Emergency Medicine; PCP Family Medicine; Visit Provider Emergency Medicine
DX: I63.9 Cerebral infarction, unspecified (principal); I10 Essential (primary) hypertension; R29.701 NIHSS score 1; R20.2 Paresthesia of skin; E66.9 Obesity, unspecified; Z79.899 Other long term (current) drug therapy
CPT/HCPCS: 70553; 80048; 85025; 93005; 99285; A9575; A4216

== ENCOUNTER 2023-04-15 16:47 | Emergency (ER) | payer OTHER, SELFPAY ==
[2023-04-15 16:48] VITALS: BP 187/96; PULSE 98; RESP 18; TEMP 36.6; O2SAT 94; BMI 46.9
--- NOTE | 2023-04-15 17:09 | EX.ED.DYSGE1 ---
HPI History of Present Illness Chief Complaint: Wound Narrative Narrative: Patient is a 57-year-old male who is presenting to the ER today with complaint of multiple lacerations/superficial abrasions to his left cheek and right arm. Patient is right-hand dominant. Patient is retired. Patient is not diabetic that he is aware of. Patient was using a facing grinder at home, he was holding it above his head working on his fireplace. Somehow the facing grinder kicked back at him, patient lost the automotive designer of it, and it hit his left cheek and right upper lateral arm. Patient has an area of 6 x 4 cm of multiple superficial abrasions to his left cheek. Patient has an area of 8 x 2 cm to his right upper lateral arm of multiple abrasions with a single laceration 3 cm, approximately 1 to 2 mm deep. It is 2 mm wide. Patient does not know when his last tetanus shot is. Patient states he does not believe he is diabetic. This is not Worker's Comp. injury, he was at home working. Patient has no headache. No loss conscious. Patient has no other acute injury at this time. Patient drove himself to the ER. [facility] Medical History (Updated 04/15/23 @ 17:[address] Nikhil Kinney DO) Anxiety Depression Hypertension Home Medications diclofenac sodium 1 % topical gel 4 gm topical Q6H PRN Pain Or Fever 07/31/17 [History Last Taken Unknown] tadalafil 20 mg tablet 20 mg PO ONCE PRN ed 03/20/18 [History Last Taken Unknown] hydrochlorothiazide 12.5 mg tablet 12.5 mg PO DAILY #30 tabs 02/21/22 [Rx Last Taken Unknown] mupirocin 2 % topical ointment 1 applic topical TID 14 days #22 grams 04/15/23 [Rx Last Taken Unknown] Allergy/AdvReac Type Severity Reaction Status Date / Time Penicillins Allergy Rash Verified 04/15/23 16:49 Sulfa (Sulfonamide Allergy Rash Verified 04/15/23 16:49 Antibiotics) celecoxib [From Celebrex] AdvReac Rash Verified 04/15/23 16:49 Family History Father Cancer Mother CVA (cerebral vascular accident) Heart disease Surgical History (Updated 05/19/22 @ 11:53 by Rohini Lacy) h/o wrist surgery History of cholecystectomy History of left hip replacement Social History (Updated 02/21/22 @ 10:[address] James Hope MD) household members: none Smoking Status: Never smoker substance use type: does not use ROS ROS ED ROS Narrative REVIEW OF SYSTEMS: Unless otherwise stated in this report the patient's positive and negative responses for review of systems for constitutional, eyes, ENT, cardiovascular, respiratory, gastrointestinal, neurological, , musculoskeletal, and integument systems and related systems to the presenting problem are either stated in the history of present illness or were not pertinent or were negative for the symptoms and/or complaints related to the presenting medical problem. EXAM Physical Exam Narrative Exam Narrative: Vital signs reviewed and patient is not hypoxic. General: The patient appears well and in no apparent distress. Patient is resting comfortably on cart. Not toxic, lethargic, or listless. Skin: Warm, dry, no pallor noted. There is no rash noted. Patient has an area to his left cheek of 6 x 4 cm of multiple superficial abrasions/road rash with minimal small black debris noted in the superficial abrasions from a facing grinder. Patient has a 8 x 2 cm area to his right upper lateral arm that has a few small foreign bodies of small black specks from a facing grinder, with the isolated 3 cm superficial laceration, 1 to 2 mm deep, 2 mm wide. No active bleeding. Patient has no puncture through and through to his left cheek. Patient has no other facial injury Head: Normocephalic, atraumatic Eye: Normal conjunctiva, no drainage, EOMI. PERRL. Ears, Nose, Mouth, and Throat: oral mucosa is moist. Nares patent. Mouth without vesicles. Patient has no signs of intraoral laceration, there is no through and through laceration to his left cheek Cardiovascular: Regular Rate and Rhythm, no murmurs, gallops, or rubs Respiratory: Patient is in no distress, no accessory muscle use, lungs are clear to auscultation, no wheezing, rales or rhonchi Back: non-tender, GI: Soft, no tenderness Musculoskeletal: The patient has full range of motion of all extremities and joints with no difficulty. Patient has no motor, no sensory deficits. Neurological: A&O x4, normal speech, no focal neurological deficits. Psychiatric: Cooperative Const Vital Signs: 04/15/23 16:48 Temperature 97.8 F Temperature Source Temporal Pulse Rate 98 Respiratory Rate 18 Blood Pressure 187/96 H Blood Pressure Mean 126 Pulse Ox 94 Oxygen Delivery Method Room Air MDM MDM MDM Narrative Medical decision making narrative: Patient had tetanus update. The options of placing 1 or 2 stitches in patient's superficial laceration to his right upper lateral arm was discussed with patient versus healing with secondary intention. Patient does not wish to have stitches at this time, and this will most likely heal well because is very superficial to his right upper lateral arm. Foreign bodies removed from left cheek and right upper lateral arm. All of patient's other superficial abrasions to his left cheek and right arm were cleaned with Hibiclens soapy water by nursing staff. Patient tolerated procedure without difficulty. Patient is placed on Bactroban ointment secondary to nature of the wound. Patient will follow-up with PCP if any other acute concerns. Patient was happy that he is not getting stitches nor did he want stitches. Placing 1 or 2 stitches versus not doing stitches would not probably change the healing pattern. Patient agrees, no question of discharge. Discharge Plan Triage Chief Complaint: Wound ED Provider: Nikhil Kinney Dx/Rx/DC Orders Clinical Impression: Abrasion of face, Laceration of upper arm, Abrasion of left arm Instructions: First Aid: Cuts and Scrapes, ED Abrasion, ED Laceration Minimize Scars Prescriptions: New mupirocin 2 % ointment 1 applic topical TID 14 Days Qty: 22 0RF No Action tadalafil 20 mg tablet 20 mg PO ONCE PRN (Reason: ed) diclofenac sodium 100 GM gel 4 gm TOPICAL Q6H PRN (Reason: Pain Or Fever) hydrochlorothiazide 12.5 mg tablet 12.5 mg PO DAILY Qty: 30 0RF Primary Care Provider: Collin Rogers Referrals: Collin Rogers MD [Primary Care Provider] - Activity Restrictions/Additional Instructions: . You can still continue to take a shower. Use Bactroban 3 times a day to help with wound healing and help prevent infection. Your abrasions and small laceration to your right upper arm will heal from the inside out. Small foreign bodies were removed. Any other acute concerns, follow-up with PCP in 2 or 3 days for wound check. Disposition Disposition: Home, Self Care
[2023-04-15] MEDS: Diphth,Pertuss(Acell),Tet Vac 0.5 ML Vial IM (17:45)
[2023-04-15] MEDS: BACITRACIN 15 GM Tube 1 APPLIC TOPICAL (17:46)
== END 2023-04-15 18:15 | disposition home or self-care (01) ==
PROVIDERS: Emergency Provider Emergency Medicine; PCP Family Medicine; Visit Provider Emergency Medicine
DX: S00.81XA Abrasion of other part of head, initial encounter (principal); S50.812A Abrasion of left forearm, initial encounter; S41.111A Laceration without foreign body of right upper arm, initial encounter; Z23 Encounter for immunization; X58.XXXA Exposure to other specified factors, initial encounter
CPT/HCPCS: 90471; 90715; 99282

== ENCOUNTER → 2023-05-29 | Outpatient (CLI) | payer OTHER, SELFPAY ==
--- NOTE | 2023-05-29 14:50 | RAD_ITS ---
STUDY: X-RAY - CERVICAL SPINE REASON FOR EXAM: Male, 57 years old. Other cervical disc degeneration, unspecified cervical region TECHNIQUE: 3 view(s) of the cervical spine were obtained. COMPARISON: None FINDINGS: There are degenerative changes of the anterior atlantoaxial articulation. Normal odontoid process. There is straightening of the normal cervical lordosis. Disc space narrowing at the C5-C6 and C6-C7 levels. Normal disc space heights. Normal visualized intervertebral neuroforamina. The soft tissue structures are unremarkable. RAD/Cerv Spine 2 or 3 Views IMPRESSION: There is straightening of the normal cervical lordosis. Electronically Signed: Aaron Hein MD at 14:30 EDT ,
== END | disposition home or self-care (01) ==
LOC: RAD 14:47
PROVIDERS: PCP Family Medicine; Referring Provider Anesthesiology Pain Medicine; Visit Provider Anesthesiology Pain Medicine
DX: M50.30 Other cervical disc degeneration, unspecified cervical region (principal)
CPT/HCPCS: 72040

== ENCOUNTER 2023-07-07 09:30 | Outpatient (RCR) | payer OTHER, SELFPAY ==
--- NOTE | 2023-06-05 14:58 | HP.PTEVAL_ITS ---
Patient's Visit Information Visit Information Visit Information: ALEXIA BALLESTEROS Jr. is a 57 year old M referred to Physical Therapy by Dr. Geneva Gray MD with a diagnosis of Neck pain. Date of Evaluation: 06/05/23 Physical Therapist: Carlos Alberto Mo, DPT, OCS, CSCS Visit Plan Frequency: 3x /Week Duration: 4-6 Weeks Plan: 3x/week for 3-4 weeks for 1. upper thoracic extension mobs and cervical mobs 2. spinal ROM, pec stretching, postural and cervical strength all to HEP MH and TENs if needed. Subjective Subjective: Dr. gray sent over here. In 1988 fell off 3 story building and has nerve pain in R LE since with L5s1 nerve injury, wears AFO. Goes to [facility] for caudal nerve injections. Lately something has changed to having pain b etween shoulder blades on spine in the last 6 months insidiously. This is not covered under his [facility] claim and sent to X ray under [employer] insurance and found [id number] have narrowing joint spaces and degenerative changes in neck. Also straightening of cervical lordosis. Has pain between shoulder blades, 3/10 fairly constant ache, sometimes sharper. no arm symptoms, no nubness or tingling. Sleep is not great due to scapular pain and put on trazadone. Tries to squeeze shoulder blade together and helps and sleeps on stomach. On Disability, quit working 2018. Basic ADLs are getting done OK but more difficult to get dressed reach with pain. Mowing grass is tough on riding mower. Hobbies: metal working and wood working , these are hard to stand for long time periods. Back feels fatigued. No regular exercises. Pain scapular pain.: Pain Intensity (Out of 10): 3 Pain Intensity Range: 3 and 7 Comment: lifting and twisting are worse. Objective Objective: Posture , forward head and straightened cervical lordosis. Protracted scapula and poor consciousness of movement. cervical aROM is 50 extensionm 55 rotations without pain but poor lower cervical and upper thoracic movement. PA mobs slightly painful in this area. UE AROM limited in flexion by restrictions, not pain. ER UE to 55, IR without pain. elbow and wrist AROM WFL. Scap AROM limited in retraction and depression. cervical retraction mod limtied. reflexes 2/3 bi and tri sensation UE WNL to gross light touch. Thoracic mobility is poor in extension strength UE flexion painful and 4-, abduction 4-, er 4-, IR 4, elbows 5/5, wrist 5/5 - c/s compression, Balance/Special Test Scores Oswestry Neck Score: 21 Goals Goal 1:: sleep without waking at home Goal Time Frame: 4-6 Weeks Goal 2:: Pain at rest 0 and 2/10 at worst in thoracic spine Goal Time Frame: 4-6 Weeks Goal 3:: Neck oswestry score 5 or less. Goal Time Frame: 4-6 Weeks Goal 4:: I approp HEP to limit future problems. Goal Time Frame: 4-6 Weeks Rehabilitation Potential Physical Therapy Diagnosis: upper thoracic pain likely limtied movement and weakness. Limiting sleep and function. Rehabilitation Potential: Good Anticipated Interventions Patient/Client Instruction: Educate patient on: Condition and Plan of Care For the Purpose of:: To decrease pain, To increase ROM, To improve nutrient delivery to tissue and To improve muscle performance and motor function Therapeutic Exercise to Include: Strength training, Postural training, Flexibilty training, Passive ROM, Active ROM and Scapular Strength/Stabilization For the Purpose of:: To decrease pain, To increase ROM, To improve nutrient delivery to tissue, To improve muscle performance and motor function and To increase tolerance to activity/condition/position Manual Therapy Techniques to Include: Mobilization and Passive ROM For the Purpose of:: To decrease pain, To increase ROM, To improve nutrient delivery to tissue, To improve muscle performance and motor function and To increase tolerance to activity/condition/position TENS: Yes Thermo therapy (hot pack): Yes For the Purpose of:: To decrease pain, To increase ROM and To improve nutrient delivery to tissue Text: Thank you for the opportunity to evaluate your patient. For Medicare and Medicare HMO plans, please review the plan of care and approve it. It will need to be FAXED BACK to us at [phone] for Medicare purposes. For Medicare only, by signing this I certify the plan of care. Please let me know if there are questions or concerns regarding this plan of care. Physician Signature: Date:
--- NOTE | 2023-07-07 10:02 | HP.PTDCSUM ---
Discharge Summary D/C summary: It has been my pleasure to treat ALEXIA BALLESTEROS Jr. referred by Dr. Geneva Gray MD, with the diagnosis of Neck pain for a total of 11 visit(s). Discharge Date: 07/07/23 Please see the following information for a summary of their discharge status. Subjective Subjective: Feels much looser. has HEP that keeps him loose. Has not had back pain in last week. R leg nerve pain persists and still get caudal epidurals which are not effective. Would like to get LB ex program. Feels current ROM neck exercises will keep neck pain at bay. Pain scapular pain.: Pain Intensity (Out of 10): 2 Overall Improvement % Improvement: 100 Objective Objective/Function: 70 degree extension neck adn 72 B rotation without pain or hesitation. Improved posture and no tenderness in soft tissue in cervical area. Doing well and will continue via HEP. May benefit from low back e valuation to get to an I gym program and will ask doctor for script for that. Goals Goal 1:: sleep without waking at home Goal Progress: neck OK, 50% better Goal 2:: Pain at rest 0 and 2/10 at worst in thoracic spine Goal Progress: Goal Met Goal 3:: Neck oswestry score 5 or less. Goal Progress: Progressing Goal 4:: I approp HEP to limit future problems. Goal Progress: Goal Met for neck Plan Plan: d/c to neck HEP D/C Information Discharge Comments: pt to doctor on monday and doing well in neck. 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 d/c sentence: If there are questions or concerns regarding this patient's physical therapy, please feel free to call me at [phone]. Thank you for the referral of this patient. Sincerely, Carlos Alberto Mo, DPT, OCS, CSCS Balance/Gait/Functional tests Balance/Special Test Scores Oswestry Neck Score: 11 Improvement % Improvement: 100
== END 2023-07-07 13:23 | disposition home or self-care (01) ==
LOC: PT 09:30
PROVIDERS: PCP Family Medicine; Referring Provider Anesthesiology Pain Medicine; Visit Provider Anesthesiology Pain Medicine
DX: M54.2 Cervicalgia (principal)
CPT/HCPCS: 97110; 97140; 97161; 97164

== ENCOUNTER 2024-07-17 17:49 | Inpatient (IN) | payer OTHER, SELFPAY ==
[2024-07-17] VITALS (12 sets, daily range): BP systolic 112–164; BP diastolic 66–73; PULSE 72–91; RESP 17–26; TEMP 36.2–38.4; O2SAT 87–97; BMI 43.5
--- NOTE | 2024-07-17 17:57 | EKG12_ITS ---
Test Reason : CP Blood Pressure : / mmHG Vent. Rate : 094 BPM Atrial Rate : 094 BPM P-R Int : 166 ms QRS Dur : 080 ms QT Int : 348 ms P-R-T Axes : 071 021 049 degrees QTc Int : 435 ms Normal sinus rhythm Normal ECG Confirmed by Tera Barnes ([id number]), video effects editor JAKE AVILES ([id number]) on 07/22/2024 10:42:22 AM Referred By: LASHELL/SAMANTHA Confirmed By:Tera Barnes
--- NOTE | 2024-07-17 18:10 | RAD_ITS ---
STUDY: X-RAY CHEST REASON FOR EXAM: Male, 58 years old. SOB TECHNIQUE: AP port COMPARISON: May 12, 2011 FINDINGS: Bibasilar interstitial thickening in both lower lobes which may be consistent with viral pneumonia or bronchitis There is no demonstrated pleural abnormality. Normal size heart. Normal mediastinum and krystyna. Normal visualized pulmonary arteries. Normal visualized aortic arch and descending thoracic aorta. Normal visualized thoracic spine. Normal visualized ribs, clavicles, and shoulders. There is no demonstrated abnormality of the visualized soft tissue structures of the upper abdomen. RAD/Chest 1 View (Portable) IMPRESSION: Bibasilar interstitial thickening consistent with inflammatory changes Electronically Signed: Nikhil Garduno MD at 18:47 EDT ,
[2024-07-17 18:23] LABS: Absolute Lymphocyte Count 1.41 X10^3/uL (0.83-4.51); Absolute Neutrophil Count 9.1 X10^3/uL (2.0-7.7); Basophil# 0.03 X10^3/uL; Basophil% 0.3 % (0-1); Eosinophil# 0.02 X10^3/uL; Eosinophils% 0.2 % (0-5); Hematocrit 49.2 % (40-54); Hemoglobin 16.3 g/dL (13.0-16.5); Lymphocyte # 1.41 X10^3/ul (0.83-4.51); Lymphocyte % 12.3 % (19-41); Mean Corp Hgb Conc 33.1 g/dL (32-36); Mean Corpuscular Hgb 31.5 pg (27.0-32.0); Mean Platelet Vol. 9.6 fl (6.2-12.0); Monocyte# 0.89 X10^3/uL; Monocyte% 7.8 % (0-10); NRBC Flagged by Analyzer 0 % (0-5); Neutrophil # 9.09 X10^3/uL (2.7-7.7); Neutrophil % 79.1 % (47-70); Platelet Count 208 K/mm3 (150-450); RBC Distribution Width SD 45.5 fl (35.1-43.9); Red Blood Count 5.18 M/mm3 (4.6-6.2); White Blood Count 11.5 K/mm3 (4.4-11.0)
[2024-07-17 18:41] LABS: Anion Gap 8 (5-15); BUN 10 mg/dL (7-18); BUN/Creat Ratio 9.8 RATIO (10-20); Calcium,Total 9.5 mg/dL (8.5-10.1); Chloride 100 mmol/L (98-107); Creatinine, Serum 1.02 mg/dL (0.70-1.30); EST Glomerular Filtration Rate 80 mL/min (>60); Est Glom Filt Rate - Afr Amer 96 mL/min (>60); Estimated Creatinine Clearance 94.22 ml/min; Glucose 100 mg/dL (74-106); Potassium 4.3 mmol/L (3.5-5.1); Sodium Level 135 mmol/L (136-145); Troponin-I HS 4 pg/mL (3.0-78.0)
--- NOTE | 2024-07-17 19:05 | EDS_ITS ---
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 Patient states around Day (16 days ago) he started feeling all ill. He notes that he was around a lot of wood smoke and was congested. Around that time he did have a fever. He followed up at [facility] urgent care where they did a chest x-ray that was clear and who put him on a course of doxycycline. It shows that patient had a 5-day course of doxycycline prescribed on 07/06/2024. He notes he was feeling better but then over the past few days has been feeling more ill again. He went back to urgent care today and was prescribed Levaquin. He said 1 dose of this so far. He reports developing fever over the past few days. Has had decreased appetite stating that he just had some toast yesterday and a slice of pizza last night. He has not had anything to eat today. He has been having some ongoing constipation but attributed to the antibiotics and decreased oral intake. Denies any nausea or vomiting. Denies abdominal pain. Does report chest pain but states it is from coughing and tightness. He states he has had some green sputum production. He did receive a breathing treatment at the office today which helped temporarily but then he felt like his breathing got worse. Has not taken a COVID test at home. [facility] Medical History Depression Anxiety Hypertension Home Medications ?Medication ?Instructions ?Recorded ?Last Taken ?Type tadalafil 20 mg tablet 20 mg PO ONCE PRN ed 03/20/18 Unknown History acetaminophen 500 mg tablet 500 mg PO Q6H PRN fever or pain 07/17/24 Unknown History losartan 25 mg tablet 50 mg PO DAILY 07/17/24 Unknown History Allergy/AdvReac Type Severity Reaction Status Date / Time Penicillins Allergy Rash Verified 07/17/24 17:50 Sulfa (Sulfonamide Allergy Rash Verified 07/17/24 17:50 Antibiotics) celecoxib (From Celebrex) AdvReac Rash Verified 07/17/24 17:50 Family History Father Cancer Mother CVA (cerebral vascular accident) Heart disease Surgical History History of cholecystectomy History of left hip replacement h/o wrist surgery Social History household members: none Smoking Status: Never smoker substance use type: does not use ROS ROS ED Constitutional Constitutional ED: Reports chills, fever(s) and sweats ENT ENT ED: Reports other Details: Nasal congestion ; Denies rhinorrhea or sore throat Cardiovascular Cardiovascular: Reports chest pain and other Details: Reports chest pain from coughing Respiratory/Chest Respiratory/Chest: Reports cough, dyspnea, dyspnea on exertion and sputum Gastrointestinal Gastrointestinal: Reports constipation; Denies abdominal pain, nausea or vomiting Musculoskeletal Musculoskeletal: Denies arthralgias or myalgias Integumentary Denies rash Neurologic Neurologic: Reports paresthesias RLE (Chronic from prior nerve injury) and weakness Hematologic/Lymphatic Hematologic/Lymphatic: Denies easy bleeding or easy bruising EXAM Physical Exam Const Vital Signs: 07/17/24 17:49 07/17/24 17:50 07/17/24 17:52 Temperature 101.2 F H 101.2 F H Temperature Source Oral Temporal Pulse Rate 91 91 Respiratory Rate 25 H 25 H Respiratory Effort Short of Breath Respiratory Depth Shallow Respiratory Pattern Tachypnea Blood Pressure 164/66 H 164/66 H Blood Pressure Mean 98 98 Pulse Ox 87 87 Oxygen Delivery Method Nasal Cannula Room Air Room Air Oxygen Flow Rate (L/min) 3 07/17/24 18:05 07/17/24 18:05 07/17/24 18:45 Temperature Temperature Source Pulse Rate 88 Respiratory Rate 26 H 17 Respiratory Effort Respiratory Depth Respiratory Pattern Blood Pressure 124/69 H Blood Pressure Mean 84 Pulse Ox 95 94 Oxygen Delivery Method Nasal Cannula Nasal Cannula Oxygen Flow Rate (L/min) 4 07/17/24 19:14 07/17/24 19:14 07/17/24 19:15 Temperature Temperature Source Pulse Rate 89 85 Respiratory Rate 24 H 18 Respiratory Effort Respiratory Depth Respiratory Pattern Tachypnea Blood Pressure Blood Pressure Mean Pulse Ox 93 94 Oxygen Delivery Method Nasal Cannula Oxygen Flow Rate (L/min) 3 07/17/24 20:00 07/17/24 20:00 07/17/24 20:20 Temperature 99.1 F 99.1 F Temperature Source Oral Pulse Rate 82 77 83 Respiratory Rate 19 H 19 H 18 Respiratory Effort Respiratory Depth Respiratory Pattern Blood Pressure 112/73 112/73 112/73 Blood Pressure Mean 86 86 86 Pulse Ox 95 95 95 Oxygen Delivery Method Nasal Cannula Nasal Cannula Oxygen Flow Rate (L/min) 3 3 Positive well nourished and well developed General Appearance ED: well developed and NAD HEENT Reports dry mucous membranes Mouth ED: Yes dry mucous membranes Mouth: dry mucous membranes Eyes PERRL Neck supple, no meningeal signs and no JVD Resp normal respiratory effort Resp Narrative: Coarse breath sounds more on the right than the left. Diminished breath sounds at the bases. Mild rhonchi appreciated. Effort and Inspection: pain with movement Cardio regular rate and regular rhythm Cardio Narrative: 2+ radial DP pulses GI non-tender and non-distended Palpation: soft Extremity normal to inspection General Extremety ED: Negative for edema General Extremity: Negative for edema Neuro oriented x3 Sensorium / Orientation: alert Motor Exam: general weakness Psych mental status grossly normal Skin no wounds Skin Narrative: Mild redness of the face?suspect secondary to fever Rashes: no rashes MDM MDM MDM Narrative Medical decision making narrative: Patient is evaluated for worsening shortness of breath and cough. Upon arrival patient is hypoxic (87% on room air) he is requiring supplemental oxygen. He is also febrile and tachypneic. Clinically suspect he has a pneumonia versus COVID infection. Given the protracted nature my concern more is for bacterial process. Patient is given DuoNeb as well as IV fluids and Tylenol. Chest x-ray reviewed by myself as well as radiology shows bibasilar interstitial thickening consistent with inflammatory changes. No obvious consolidation or effusion appreciated. Patient is a mild leukocytosis of 11.5 with no shift. BMP shows mild hyponatremia with a sodium of 135. His troponin is normal at 4 and have a low suspicion for ACS as a cause of his symptoms. Patient does not have any respecters for PE and I suspect this is infectious I do not think workup for pulmonary likely D-dimer and CTA is indicated at this time. Patient's COVID test is positive. I suspect he has acute COVID infection which is causing his fever and hypoxia and likely why he suddenly got ill again especially as his chest x-ray is more consistent with a viral pattern. Patient is given IV Decadron in the ER. He has improvement after receiving DuoNeb in the emergency room. Vital signs improved after Tylenol as well as breathing treatment and IV fluids. Patient be admitted for further respiratory treatments. Case discussed immunization, Dr. Gregg. Lab Data Attestation: I reviewed the patient's lab results. Labs: Laboratory Results - last 24 hr 07/17/24 18:08 WBC 11.5 H RBC 5.18 Hgb 16.3 Hct 49.2 MCV 95.0 H MCH 31.5 MCHC 33.1 RDW Std Deviation 45.5 H RDW Coeff of Janett 13.0 Plt Count 208 MPV 9.6 Immature Gran % (Auto) 0.300 Neut % (Auto) 79.1 H Lymph % (Auto) 12.3 L [place] % (Auto) 7.8 Eos % (Auto) 0.2 Baso % (Auto) 0.3 Absolute Neuts (auto) 9.1 H Absolute Lymphs (auto) 1.41 Nucleated RBC % 0 Sodium 135 L Potassium 4.3 Chloride 100 Carbon Dioxide 27.0 Anion Gap 8 BUN 10 Creatinine 1.02 Estim Creat Clear Calc 94.22 Est GFR (MDRD) Af Amer 96 Est GFR (MDRD) Non-Af 80 BUN/Creatinine Ratio 9.8 L Glucose 100 Lactic Acid 1.3 Calcium 9.5 Troponin I High Sens 4 Radiography Chest X-Ray - ED: 1 View, Read by ED Physician, Read by Radiologist and - (Bibasilar inflammatory changes) Diagnostic Testing: Clinical Impression(s) from Imaging Studies Chest X-Ray 07/17/24 18:10 IMPRESSION: Bibasilar interstitial thickening consistent with inflammatory changes Electronically Signed: Nikhil Garduno MD at 18:47 EDT , Rhythm Strip Rhythm Strip: Sinus Rhythm Rate: 94 Ectopy: None EKG Initial EKG: Attestation: I personally reviewed and interpreted this EKG as follows: Comments: Normal sinus rhythm at a rate of 94 bpm Normal axis Normal intervals Normal ST segment Discharge Plan Triage Chief Complaint: Shortness of Breath ED Provider: Leatha Leyva Dx/Rx/DC Orders Clinical Impression: COVID-19, Hypoxia, Fever Prescriptions: No Action tadalafil 20 mg tablet 20 mg PO ONCE PRN (Reason: ed) losartan 25 mg tablet 50 mg PO DAILY acetaminophen 500 mg tablet 500 mg PO Q6H PRN (Reason: fever or pain) Primary Care Provider: Collin Rogers Referrals: Collin Rogers MD [Primary Care Provider] - Print Language: Portuguese Disposition Disposition: Acute Care Hospital [facility]
[2024-07-17] MEDS: Ipratropium/Albuterol Sulfate 3 ML AMPUL.NEB INHALATION (19:14)
[2024-07-17] MEDS: 0.9% Normal Saline (1000mL) 1,000 ML 999 ML IV (19:19)
[2024-07-17] MEDS: Acetaminophen 325 MG Tablet 650 MG PO (19:19)
[2024-07-17 20:04] LABS: Lactic Acid 1.3 mmol/L (0.4-1.9)
[2024-07-17] MEDS: dexAMETHasone 10 MG/ML Vial 6 MG IV (20:24)
--- NOTE | 2024-07-17 20:33 | HP.PCM.HOS_ITS ---
HPI - General General Date of Admission: 07/17/24 Date of Service: 07/17/24 Chief Complaint: Dyspnea, cough, fatigue, malaise, lack of appetite HPI Narrative The patient is a 58 y/o M w/ PMHx: Suspected CKD stage II based on GFR trending, Morbid obesity, AMANDA on CPAP q HS, HTN, Anxiety and Depression who presents to the [facility] ED on 07/17/24 w/ history of onset fever, intermittently productive cough, myalgia, altered taste and smell, fatigue malaise as well as dyspnea worse with exertion ongoing for the last 3 days with history of nearly half a month of URI type symptoms initially with significant congestion, rhinorrhea and fever placed on doxycycline with a 5-day course with clinical improvement until his current presentation with onset of URI type symptoms again prompting return to urgent care with prescription filled for Levaquin however he is only taken 1 dose and given ongoing fatigue and malaise with worsened dyspnea and minimal appetite prompted ED evaluation. Patient did have a breathing treatment at urgent care and felt somewhat improved at that time. He does report being vaccinated against COVID but has not had any vaccine this season as of yet. His who is present has yet to feel ill but they have been around all the same individuals. Workup in the ED included T101.2 oral, heart rate 91, BP 164/66, respiratory rate 25, initially 87% on room air with improvement to 95% on 4 L nasal cannula, CBC with WBC 11.5, hemoglobin 16.3, platelet 208 with left shift, BMP with sodium 135, lactic acid 1.3, troponin 4, chest x-ray with bibasilar interstitial thickening concerning for viral pneumonia, rapid SARS COVID noted to be positive. In the ED patient ministered 1 L normal saline, Tylenol 650 mg p.o. x 1, DuoNeb therapy as well as Decadron 6 mg IV x 1. [facility] Medical History (Updated 07/17/24 @ 21:[address] Madhuri Gregg MD) Erectile dysfunction AMANDA on CPAP Morbid obesity Anxiety and depression Hypertension Home Medications ?Medication ?Instructions ?Recorded ?Last Taken ?Type tadalafil 20 mg tablet 20 mg PO ONCE PRN ed 03/20/18 Unknown History acetaminophen 500 mg tablet 500 mg PO Q6H PRN fever or pain 07/17/24 Unknown History losartan 25 mg tablet 50 mg PO DAILY 07/17/24 Unknown History Allergy/AdvReac Type Severity Reaction Status Date / Time Penicillins Allergy Rash Verified 07/17/24 17:50 Sulfa (Sulfonamide Allergy Rash Verified 07/17/24 17:50 Antibiotics) celecoxib (From Celebrex) AdvReac Rash Verified 07/17/24 17:50 Family History Father Cancer Mother CVA (cerebral vascular accident) Heart disease Surgical History History of cholecystectomy History of left hip replacement h/o wrist surgery Social History (Updated 07/17/24 @ 21:[address] Madhuri Gregg MD) household members: spouse Smoking Status: Never smoker alcohol intake: never substance use type: does not use ROS ROS Narrative Admission Review of Systems: CONSTITUTIONAL: No weight loss, + fever, chills, weakness or fatigue. HEENT: + Congestion, rhinorrhea, sore throat. Eyes: No visual loss, blurred vision, double vision or yellow sclerae. Ears, Nose, Throat: No hearing loss, sneezing. SKIN: No rash or itching, lesions, wounds. CARDIOVASCULAR: + Pleuritic chest discomfort. No palpitations, edema, orthopnea, syncopal events. RESPIRATORY: + shortness of breath, cough with occasional productive sputum. No wheezing, hemoptysis. GASTROINTESTINAL: + anorexia, constipation. No nausea, emesis, diarrhea, abdominal pain, melena, BRBPR. GENITOURINARY: No dysuria, frequency, urgency or retention. NEUROLOGICAL: No headache, dizziness, syncope, paralysis, ataxia, numbness or tingling in the extremities, focal weakness, change in bowel or bladder control, seizure. MUSCULOSKELETAL: + muscle, back pain, joint pain or stiffness. HEMATOLOGIC: No anemia, bleeding or bruising. LYMPHATICS: No enlarged nodes. No history of splenectomy. PSYCHIATRIC: No history of depression or anxiety. ENDOCRINOLOGIC: + reports of sweating, cold or heat intolerance. No polyuria or polydipsia. ALLERGIES: No history of asthma, hives, eczema or rhinitis. Vital Signs Vital Signs Vital Signs: 07/17/24 17:49 07/17/24 17:50 07/17/24 17:52 Temperature 101.2 F H 101.2 F H Temperature Source Oral Temporal Pulse Rate 91 91 Respiratory Rate 25 H 25 H Respiratory Effort Short of Breath Respiratory Depth Shallow Respiratory Pattern Tachypnea Blood Pressure 164/66 H 164/66 H Blood Pressure Mean 98 98 Pulse Ox 87 87 Oxygen Delivery Method Nasal Cannula Room Air Room Air Oxygen Flow Rate (L/min) 3 07/17/24 18:05 07/17/24 18:05 07/17/24 18:45 Temperature Temperature Source Pulse Rate 88 Respiratory Rate 26 H 17 Respiratory Effort Respiratory Depth Respiratory Pattern Blood Pressure 124/69 H Blood Pressure Mean 84 Pulse Ox 95 94 Oxygen Delivery Method Nasal Cannula Nasal Cannula Oxygen Flow Rate (L/min) 4 07/17/24 19:14 07/17/24 19:14 07/17/24 19:15 Temperature Temperature Source Pulse Rate 89 85 Respiratory Rate 24 H 18 Respiratory Effort Respiratory Depth Respiratory Pattern Tachypnea Blood Pressure Blood Pressure Mean Pulse Ox 93 94 Oxygen Delivery Method Nasal Cannula Oxygen Flow Rate (L/min) 3 07/17/24 20:00 07/17/24 20:00 07/17/24 20:20 Temperature 99.1 F 99.1 F Temperature Source Oral Pulse Rate 82 77 83 Respiratory Rate 19 H 19 H 18 Respiratory Effort Respiratory Depth Respiratory Pattern Blood Pressure 112/73 112/73 112/73 Blood Pressure Mean 86 86 86 Pulse Ox 95 95 95 Oxygen Delivery Method Nasal Cannula Nasal Cannula Oxygen Flow Rate (L/min) 3 3 Weight Weight: 261 lb 11.2 oz Body Mass Index (BMI) 43.5 Physical Exam Narrative Physical Examination: General: Awake, alert, oriented x 3 and cooperative, seated upright in the ED bed, fatigued and ill-appearing, mildly increased respiratory rate. Skin: Normal color, normal turgor, no icterus, no cyanosis. HEENT: AT/NC, EOMI, PERRLA, moderately dry MM, no carotid bruits or JVD noted; however thickened neck makes evaluation difficult. Lungs: Diffusely diminished, greater bases, mildly increased respiratory rate, no rales, ronchi or wheezing. Heart: Currently regular rate with regular rhythm; no gallop, rub audible. Abdomen: Soft, morbidly obese, no obvious TTP, unable to discern distention given habitus, distant hyperactive bowel sounds, unable to discern HSM secondary to habitus. Extremities: No cyanosis, no clubbing, no marked peripheral edema noted. Neurological: Patient awake, alert, oriented as noted, cognitive function intact; pupils equally reactive to light and accommodation, cranial nerves grossly normal, moving all 4 extremities, no focal deficits, strength moderately to severely global decrease secondary to acute presentation. Psychiatric: Affect appears fatigued, ill-appearing, no acute evidence of depressive or anxiety feelings. Results Lab / Micro Data 07/17/24 18:08 07/17/24 18:08 Labs: Laboratory Results - last 24 hr 07/17/24 18:08: WBC 11.5 H, RBC 5.18, Hgb 16.3, Hct 49.2, MCV 95.0 H, MCH 31.5, MCHC 33.1, RDW Std Deviation 45.5 H, RDW Coeff of Janett 13.0, Plt Count 208, MPV 9.6, Immature Gran % (Auto) 0.300, Neut % (Auto) 79.1 H, Lymph % (Auto) 12.3 L, [place] % (Auto) 7.8, Eos % (Auto) 0.2, Baso % (Auto) 0.3, Absolute Neuts (auto) 9.1 H, Absolute Lymphs (auto) 1.41, Nucleated RBC % 0, Sodium 135 L, Potassium 4.3, Chloride 100, Carbon Dioxide 27.0, Anion Gap 8, BUN 10, Creatinine 1.02, Estim Creat Clear Calc 94.22, Est GFR (MDRD) Af Amer 96, Est GFR (MDRD) Non-Af 80, BUN/Creatinine Ratio 9.8 L, Glucose 100, Lactic Acid 1.3, Calcium 9.5, Troponin I High Sens 4 Micro: Microbiology 07/17/24 18:08 Mucosa - Nasopharyngeal SARS-CoV-2, Influenza & RSV (PCR) - Final Rhythm Strip Rhythm Strip: Sinus Rhythm Rate: 94 Ectopy: None Imaging Radiology Impression Chest X-Ray 07/17/24 18:10 IMPRESSION: Bibasilar interstitial thickening consistent with inflammatory changes Electronically Signed: Nikhil Garduno MD at 18:47 EDT , Assessment & Plan Assessment/Plan (1) Hypoxia: (2) COVID-19: PLAN: Plan The patient is a 58 y/o M w/ PMHx: Suspected CKD stage II based on GFR trending, Morbid obesity, AMANDA on CPAP q HS, HTN, Anxiety and Depression who presents to the [facility] ED on 07/17/24 w/ history of onset fever, intermittently productive cough, myalgia, altered taste and smell, fatigue malaise as well as dyspnea worse with exertion ongoing for the last 3 days with history of nearly half a month of URI type symptoms initially with significant congestion, rhinorrhea and fever placed on doxycycline with a 5-day course with clinical improvement until his current presentation with onset of URI type symptoms again prompting return to urgent care with prescription filled for Levaquin however he is only taken 1 dose and given ongoing fatigue and malaise with worsened dyspnea and minimal appetite prompted ED evaluation. #1. Acute Hypoxia secondary to Acute Bilateral Pneumonia secondary to Acute Viral Syndrome, COVID-19: Will admit to the [place] telemetry, maintain on COVID precautions, will maintain on oxygen with wean as tolerated to room air, PRN albuterol, ATC DuoNeb therapy given response in the ED, encourage HOB, IS parameters w/ D-dimer, procalcitonin, CRP, CPK, Ferritin, LDH and BNP, continue supportive care including q 2 hour turning including prone given no prone bed availability and judicious hydration, closely monitor for worsening status for ARDS and multiorgan failure, will initiate and continue IV decadron x 10 doses, given presentation will also initiate IV remdesivir but defer to discretion of Infectious disease. #2. Hyponatremia, mild, suspected mild hypovolemia with poor oral intake: Admission sodium 135, chloride 100, administered already 1 L in the ED, given presentation will hold off on further aggressive hydration and repeat CMP in AM. #3. Chronic Kidney Disease Stage unclear, previous GFR trending consistent with stage II but has vacillated: Admission BUN/Cr /.02, GFR 80, baseline renal function 0.7-1.2, repeat BMP in AM to further elucidate chronicity. #4. Hypertension: Continue home regimen including losartan with hold as needed, PRN hydralazine. #5. Morbid Obesity: Weight loss and lifestyle changes encouraged. #6. AMANDA: CPAP nightly. #7. DVT prophylaxis: Lovenox twice daily. #8. CODE STATUS: Full code. Amenable to usage of BiPAP/Airvo as well as antiviral regimen. Charges/Coding Visit Charges Inpatient E&M: 94863 Init Hosp L3
[2024-07-17 21:58] LABS: AST(SGOT) 21 U/L (15-37); Alanine Aminotransfer ALT/SGPT 30 U/L (16-61); Albumin, Serum 3.9 g/dL (3.2-5.0); Alkaline Phosphatase 64 U/L (45-117); Bilirubin, Direct 0.25 mg/dL (0.00-0.30); CPK Total, Creatine Kinase 139 U/L (39-308); Ferritin 588 ng/mL (26-388); Globulin 4.3 g/dL (2.2-4.2); LDH 197 U/L (87-241); Protein, Total 8.2 g/dL (6.4-8.2)
[2024-07-17 22:15] LABS: D-Dimer Quantitative (DVT/PE) 0.59 FEU/ug/m (0.27-0.49)
[2024-07-17] MEDS: Enoxaparin 40 MG/0.4 ML Syringe SC (22:58)
[2024-07-17 23:00] LABS: BNP,B-Type NATRIURETIC PEPTIDE 8.1 pg/mL (0-100)
[2024-07-17] MEDS: Remdesivir 200 MG in 0.9% Normal Saline (250mL Bag) 210 ML 250 MG IV (23:07)
[2024-07-18] VITALS (9 sets, daily range): BP systolic 135–146; BP diastolic 68–83; PULSE 63–86; RESP 16–21; TEMP 36.3–36.8; O2SAT 92–95; BMI 43.5
--- NOTE | 2024-07-18 00:46 | CPS ---
Patient refuses CPAP at this time
[2024-07-18 05:14] LABS: Absolute Lymphocyte Count 0.86 X10^3/uL (0.83-4.51); Absolute Neutrophil Count 7.3 X10^3/uL (2.0-7.7); Basophil# 0.01 X10^3/uL; Basophil% 0.1 % (0-1); Hematocrit 42.2 % (40-54); Hemoglobin 14.1 g/dL (13.0-16.5); Lymphocyte # 0.86 X10^3/ul (0.83-4.51); Lymphocyte % 10.3 % (19-41); Mean Corp Hgb Conc 33.4 g/dL (32-36); Mean Corpuscular Volume 95.7 fL (80-94); Mean Platelet Vol. 9.8 fl (6.2-12.0); Monocyte# 0.19 X10^3/uL; Monocyte% 2.3 % (0-10); NRBC Flagged by Analyzer 0 % (0-5); Neutrophil % 86.9 % (47-70); Platelet Count 174 K/mm3 (150-450); RBC Distribution Width CV 13.2 % (11.6-14.6); RBC Distribution Width SD 46.5 fl (35.1-43.9); Red Blood Count 4.41 M/mm3 (4.6-6.2); White Blood Count 8.4 K/mm3 (4.4-11.0)
[2024-07-18 05:36] LABS: ALB/GLOB Ratio 0.8 RATIO (0.9-2.4); AST(SGOT) 18 U/L (15-37); Alanine Aminotransfer ALT/SGPT 22 U/L (16-61); Alkaline Phosphatase 50 U/L (45-117); Anion Gap 3 (5-15); BUN 10 mg/dL (7-18); BUN/Creat Ratio 15.1 RATIO (10-20); Chloride 108 mmol/L (98-107); Creatinine, Serum 0.66 mg/dL (0.70-1.30); EST Glomerular Filtration Rate 131 mL/min (>60); Est Glom Filt Rate - Afr Amer 159 mL/min (>60); Estimated Creatinine Clearance 145.61 ml/min; Globulin 3.7 g/dL (2.2-4.2); Glucose 137 mg/dL (74-106); Potassium 4.2 mmol/L (3.5-5.1); Protein, Total 6.7 g/dL (6.4-8.2); Sodium Level 137 mmol/L (136-145)
[2024-07-18] MEDS: Ipratropium/Albuterol Sulfate 3 ML AMPUL.NEB INHALATION ×5 (07:22→23:43)
[2024-07-18] MEDS: dexAMETHasone 4 MG/ML Vial 6 MG IV (10:42)
[2024-07-18] MEDS: FLU VACC 2024-25(6MOS UP)/PF 45 MCG/0.5 ML SYRINGE IM (10:43)
[2024-07-18] MEDS: Enoxaparin 40 MG/0.4 ML Syringe SC ×2 (10:43→22:04)
--- NOTE | 2024-07-18 14:01 | PN_ITS ---
Subjective Subjective Patient seen and examined. He states he feels much better. He is down to 2 L of oxygen. He is coughing but is nonproductive. He denies any fever or chills, nausea vomiting or any other symptoms. Review of systems otherwise negative. He has remained hemodynamically stable. Objective Data Objective Data Vital Signs: Vital Signs Temp Pulse Resp BP Pulse Ox O2 Del Method O2 Flow Rate 98.3 F 76 16 135/69 H 94 Nasal Cannula 2 07/18/24 11:00 07/18/24 11:00 07/18/24 11:00 07/18/24 11:00 07/18/24 11:00 07/18/24 11:00 07/18/24 11:00 Oxygen Flow Rate (L/min) 2 Oxygen Delivery Method Nasal Cannula Weight: 261 lb 11.019 oz Body Mass Index (BMI) 43.5 Intake & Output: Intake and Output for Last 24 Hours 07/16/24 07/17/24 07/18/24 23:59 23:59 23:59 Intake Total 1220 / 1220 550 / 550 Output Total 600 / 600 Balance 1220 / 1220 -50 / -50 Lab / Micro Data 07/18/24 05:00 07/18/24 05:00 Labs: Laboratory Results - last 24 hr 07/17/24 13:08: D-Dimer Quant (PE/DVT) 0.59 H* 07/17/24 18:08: WBC 11.5 H, RBC 5.18, Hgb 16.3, Hct 49.2, MCV 95.0 H, MCH 31.5, MCHC 33.1, RDW Std Deviation 45.5 H, RDW Coeff of Janett 13.0, Plt Count 208, MPV 9.6, Immature Gran % (Auto) 0.300, Neut % (Auto) 79.1 H, Lymph % (Auto) 12.3 L, [place] % (Auto) 7.8, Eos % (Auto) 0.2, Baso % (Auto) 0.3, Absolute Neuts (auto) 9.1 H, Absolute Lymphs (auto) 1.41, Nucleated RBC % 0, Sodium 135 L, Potassium 4.3, Chloride 100, Carbon Dioxide 27.0, Anion Gap 8, BUN 10, Creatinine 1.02, Estim Creat Clear Calc 94.22, Est GFR (MDRD) Af Amer 96, Est GFR (MDRD) Non-Af 80, BUN/Creatinine Ratio 9.8 L, Glucose 100, Lactic Acid 1.3, Calcium 9.5, F erritin 588 H, Total Bilirubin 0.90, Direct Bilirubin 0.25, AST 21, ALT 30, Alkaline Phosphatase 64, Lactate Dehydrogenase 197, Total Creatine Kinase 139, Troponin I High Sens 4, C-React Prot Ext Range 85.00 H, B-Natriuretic Peptide 8.1, Total Protein 8.2, Albumin 3.9, Globulin 4.3 H 07/17/24 21:38: Procalcitonin 0.10 H 07/18/24 05:00: WBC 8.4, RBC 4.41 L, Hgb 14.1, Hct 42.2, MCV 95.7 H, MCH 32.0, MCHC 33.4, RDW Std Deviation 46.5 H, RDW Coeff of Janett 13.2, Plt Count 174, MPV 9.8, Immature Gran % (Auto) 0.400, Neut % (Auto) 86.9 H, Lymph % (Auto) 10.3 L, [place] % (Auto) 2.3, Eos % (Auto) 0.0, Baso % (Auto) 0.1, Absolute Neuts (auto) 7.3, Absolute Lymphs (auto) 0.86, Nucleated RBC % 0, Sodium 137, Potassium 4.2, Chloride 108 H, Carbon Dioxide 26.0, Anion Gap 3 L, BUN 10, Creatinine 0.66 L, Estim Creat Clear Calc 145.61, Est GFR (MDRD) Af Amer 159, Est GFR (MDRD) Non-Af 131, BUN/Creatinine Ratio 15.1, Glucose 137 H, Calcium 8.0 L, Total Bilirubin 0.30, AST 18, ALT 22, Alkaline Phosphatase 50, Total Protein 6.7, Albumin 3.0 L, Globulin 3.7, Albumin/Globulin Ratio 0.8 L Micro: Microbiology 07/17/24 18:08 Mucosa - Nasopharyngeal SARS-CoV-2, Influenza & RSV (PCR) - Final SARS-CoV-2 (COVID 19 PCR) Radiography Diagnostic Testing: Radiology Impression Chest X-Ray 07/17/24 18:10 IMPRESSION: Bibasilar interstitial thickening consistent with inflammatory changes Electronically Signed: Nikhil Garduno MD at 18:47 EDT , Rhythm Strip Rhythm Strip: Sinus Rhythm Rate: 94 Ectopy: None Physical Exam Const alert, oriented x3 and no apparent distress General Appearance: cooperative and well developed HEENT normocephalic, head/scalp atraumatic and moist oral mucous membranes Eyes PERRL and EOMs intact bilaterally Neck no lymphadenopathy and supple Lymph Lymphatic: no lymphadenopathy noted and no lymphedema noted Resp Resp Narrative: diminished breath sounds bibasally, no wheezes or crackles. On 2L of oxygen by nasal canula Cardio regular rate, regular rhythm, S1 normal heart sound, S2 normal heart sound and no murmurs GI normal to inspection, nondistended, normoactive bowel sounds, soft to palpation, non-tender and non-distended Extremity normal capillary refill, no clubbing, cyanosis or edema and no calf tenderness General Extremity: no tenderness to palpation of joints or extremities Skin General Skin Exam: no breakdown Neuro CN's II-XII intact bilaterally, no focal motor deficits, no sensory deficits noted and deep tendon reflexes 2+ bilaterally Motor Exam: strength 5/5 throughout and general weakness Psych thought process normal and cooperative Appearance: appropriate Assessment & Plan Assessment/Plan (1) COVID-19: (2) Hypoxia: (3) Fever: PLAN: Plan #Hypoxia due to covid 19 infection * on 2L of oxygen by nasal canula * feels much better today. his breathing has improved * on breathing treatment with bronchodilators; on decadron 6mg daily and remdesivir * titrate oxygen to maintain sats >90% * #Hyponatremia: resolving #Hypertension; on losartan. IV hydralazine prn #AMANDA: on CPAP qhs. #Morbid obesity: BMI is 43.5. Complicates acute care, expected recovery adn prognosis DVT prophylaxis; lovenox Charges/Coding Visit Charges Inpatient E&M: 60103 Subs Hosp L2
--- NOTE | 2024-07-18 15:50 | CASEMGMT ---
RN CM BAR MACHINE OPERATOR NICOLLE? with patient for initial transition planning/care coordination assessment. RN NICOLLE?introduced self and role at [facility]. Pt voices understanding and consents to assessment?at this time. Pt is A/O at this time and answers all questions appropriately. Care providers, pharmacy, and demographics verified/updated at this time. Strata:?2 PCP: Dr Rogers Specialists: Dr Gray-pain management. Sees a psychiatrist in [facility] and a counselor @ [facility]. [facility]erred [facility]acy: [facility] Insurance:[facility] Prescription Benefit: yes LNOK: , Nyasia. Son, Bry Living Arrangements: Lives w/. Independent and manages his own medications. Transportation:?Pt states drives self and states no transportation concerns at this time. also drives. DME: States has the following DME: wears AFO on Rt leg, uses crutches occasionally. Has a CPAP, nebulizer, and pulse ox. No home O2. If O2 is needed @ discharge, [employer] is 1st preference. Pt states no need for further DME at this time. HHC/SNF: No hx of SNF. Had HHC about 1-1/2 yrs ago after hip replacement. Pt declines need for HHC or OP therapy at this time. Aware if he changes his mind once he returns home, to discuss this w/his PCP. He voices understanding. Pt wishes to return home and states has no concerns with going home at time of discharge. CM?to follow for home oxygen needs and any further discharge planning/needs. Pt voices no further concerns/needs at this time. Advised pt to ask for CM?if any further questions/concerns/needs arise. Voices understanding. PLAN: Home. Follow for possible O2 @ discharge. Santa CABRERA RN, CM
[2024-07-18] MEDS: Remdesivir 100 MG in 0.9% Normal Saline (250mL Bag) 230 ML 250 MG IV (22:04)
[2024-07-18] MEDS: 0.9% Saline Lock 10 ML Syringe IV (22:04)
[2024-07-19] MEDS: clonazePAM 1 MG Tablet PO (01:17)
[2024-07-19 04:00] VITALS: BP 110/54; PULSE 65; RESP 18; TEMP 36.8; O2SAT 95
[2024-07-19 05:34] VITALS: BMI 43.4
[2024-07-19] MEDS: Ipratropium/Albuterol Sulfate 3 ML AMPUL.NEB INHALATION (07:56)
[2024-07-19 07:57] VITALS: PULSE 61; RESP 18; O2SAT 92
[2024-07-19 08:00] LABS: Absolute Lymphocyte Count 1.39 X10^3/uL (0.83-4.51); Absolute Neutrophil Count 10.1 X10^3/uL (2.0-7.7); Basophil# 0.02 X10^3/uL; Basophil% 0.2 % (0-1); Hematocrit 43.7 % (40-54); Hemoglobin 14.6 g/dL (13.0-16.5); Lymphocyte # 1.39 X10^3/ul (0.83-4.51); Lymphocyte % 11.5 % (19-41); Mean Corp Hgb Conc 33.4 g/dL (32-36); Mean Corpuscular Hgb 31.8 pg (27.0-32.0); Mean Corpuscular Volume 95.2 fL (80-94); Mean Platelet Vol. 9.9 fl (6.2-12.0); Monocyte# 0.58 X10^3/uL; Monocyte% 4.8 % (0-10); NRBC Flagged by Analyzer 0 % (0-5); Neutrophil # 10.05 X10^3/uL (2.7-7.7); Platelet Count 211 K/mm3 (150-450); RBC Distribution Width CV 13.2 % (11.6-14.6); RBC Distribution Width SD 46.4 fl (35.1-43.9); Red Blood Count 4.59 M/mm3 (4.6-6.2); White Blood Count 12.1 K/mm3 (4.4-11.0)
[2024-07-19 08:03] VITALS: BP 125/66; PULSE 67; RESP 16; TEMP 36.6; O2SAT 93
[2024-07-19 08:33] LABS: Anion Gap 5 (5-15); BUN 16 mg/dL (7-18); BUN/Creat Ratio 20.5 RATIO (10-20); Calcium,Total 8.7 mg/dL (8.5-10.1); Chloride 108 mmol/L (98-107); Creatinine, Serum 0.78 mg/dL (0.70-1.30); EST Glomerular Filtration Rate 108 mL/min (>60); Est Glom Filt Rate - Afr Amer 131 mL/min (>60); Estimated Creatinine Clearance 123.09 ml/min; Glucose 121 mg/dL (74-106); Sodium Level 140 mmol/L (136-145)
[2024-07-19] MEDS: dexAMETHasone 4 MG/ML Vial 6 MG IV (10:49)
[2024-07-19] MEDS: Losartan Potassium 50 MG Tablet PO (10:49)
--- NOTE | 2024-07-19 11:30 | DS.PCM_ITS ---
Providers Date of Admission: 07/17/24 Date of Discharge: 07/19/24 Primary Care Physician: Dr. Collin Rogers MD Reason For Visit: HYPOXIA COVID Diagnosis Discharge Diagnosis (1) COVID-19: Status: Acute Code(s): U07.1 - COVID-19 (2) Hypoxia: Status: Acute Code(s): R09.02 - Hypoxemia (3) Fever: Status: Acute Code(s): R50.9 - Fever, unspecified Plan #Hypoxia due to covid 19 infection * on 2L of oxygen by nasal canula * feels much better today. his breathing has improved * on breathing treatment with bronchodilators; on decadron 6mg daily and remdesivir * titrate oxygen to maintain sats >90% * #Hyponatremia: resolving #Hypertension; on losartan. IV hydralazine prn #AMANDA: on CPAP qhs. #Morbid obesity: BMI is 43.5. Complicates acute care, expected recovery adn prognosis DVT prophylaxis; lovenox Medications at Discharge Home Medications tadalafil 20 mg tablet 20 mg PO ONCE PRN ed 03/20/18 acetaminophen 500 mg tablet 500 mg PO Q6H PRN fever or pain 07/17/24 clonazepam 1 mg tablet 1 mg PO QHS PRN PRN sleep 07/18/24 ergocalciferol (vitamin D2) 1,250 mcg (50,000 unit) capsule (Vitamin D2) 1,250 mcg PO QWEEK Sleep apnea 07/18/24 losartan 50 mg tablet 50 mg PO DAILY B/P 07/18/24 testosterone 1 % (25 mg/2.5 gram) transdermal gel packet transdermal low testosterone 07/18/24 tramadol 50 mg tablet 50 mg PO BID PRN PRN pain 07/18/24 dexamethasone 6 mg tablet 6 mg PO DAILY #8 tabs 07/19/24 Hospital Course Operations None Procedures None Summary of Care Provided Minutes Spent on Discharge: 45 Hospital Course: Patient is a 58-year-old male with a past medical history as outlined who was admitted through the ED wiuth a complaint of fever, intermittent cough, myalgia and altered taste and smell as well as shortness of breath. His symptoms had been going on for about 3 days prior to admission. He also had congestion and rhinorrhea. He had been placed on p.o. doxycycline for 5-day course on outpatient basis but his symptoms had not fully resolved so he went to the urgent care. He was given a prescription for Levaquin there. He took 1 dose but his symptoms did not improve so he came into the ED. In the ED chest x-ray showed bibasilar interstitial thickening concerning for viral pneumonia and COVID test was positive. He was admitted and managed for hypoxia due to COVID- 19 infection. He was placed on Decadron and breathing treatments bronchodilators. He was initially placed on remdesivir as he was requiring 4 L of oxygen. Patient symptoms improved and he felt much better. He was weaned off of oxygen onto room air and did well. He was discharged home on 07/19/2024. Was discharged on p.o. Decadron 6 mg daily for 8 days to complete a 10-day course. He is to follow-up with his primary care doctor within 1 to 2 weeks. Patient did not qualify for any oxygen at time of discharge. Patient seen and examined prior to discharge. He had no complaints and had an uneventful night. Review of systems otherwise negative. Labs and vitals reviewed. Home medication reviewed and reconciled. Physical Exam Const alert, oriented x3 and no apparent distress General Appearance: cooperative, comfortable and well developed Orientation / Consciousness: awake Exam Limitations: no limitations HEENT normocephalic, head/scalp atraumatic, hearing grossly normal bilaterally and moist oral mucous membranes Mouth: oral and palatal mucosa normal Eyes PERRL, EOMs intact bilaterally and conjunctivae normal Neck no lymphadenopathy and supple Lymph Lymphatic: no lymphadenopathy noted and no lymphedema noted Resp Resp Narrative: diminished breath sounds bibasally, no wheezes or crackles. On room air. Cardio regular rate, regular rhythm, S1 normal heart sound, S2 normal heart sound and no murmurs GI normal to inspection, nondistended, normoactive bowel sounds, soft to palpation, non-tender and non-distended Extremity normal capillary refill, no clubbing, cyanosis or edema and no calf tenderness General Extremity: no tenderness to palpation of joints or extremities Skin no rashes or lesions noted General Skin Exam: no breakdown Neuro oriented x3, CN's II-XII intact bilaterally, moves all extremities, no focal motor deficits, no sensory deficits noted and deep tendon reflexes 2+ bilaterally Sensorium / Orientation: awake Motor Exam: strength 5/5 throughout and general weakness Psych thought process normal and cooperative Appearance: appropriate Weight / BMI Weight Weight: 261 lb 3.964 oz Body Mass Index (BMI) 43.4 ABG / Lab / Microbiology Data 07/19/24 07:44 07/19/24 07:44 Laboratory: Laboratory Results - last 24 hr 07/19/24 07:44: WBC 12.1 H, RBC 4.59 L, Hgb 14.6, Hct 43.7, MCV 95.2 H, MCH 31.8, MCHC 33.4, RDW Std Deviation 46.4 H, RDW Coeff of Janett 13.2, Plt Count 211, MPV 9.9, Immature Gran % (Auto) 0.500, Neut % (Auto) 83.0 H, Lymph % (Auto) 11.5 L, [place] % (Auto) 4.8, Eos % (Auto) 0.0, Baso % (Auto) 0.2, Absolute Neuts (auto) 10.1 H, Absolute Lymphs (auto) 1.39, Nucleated RBC % 0, Sodium 140, Potassium 4.0, Chloride 108 H, Carbon Dioxide 27.0, Anion Gap 5, BUN 16, Creatinine 0.78, Estim Creat Clear Calc 123.09, Est GFR (MDRD) Af Amer 131, Est GFR (MDRD) Non-Af 108, BUN/Creatinine Ratio 20.5 H, Glucose 121 H, Calcium 8.7 Microbiology: Microbiology 07/17/24 18:08 Mucosa - Nasopharyngeal SARS-CoV-2, Influenza & RSV (PCR) - Final SARS-CoV-2 (COVID 19 PCR) D/C Instructions Discharge Diet: Low fat / Low cholesterol Discharge Activity: Return to Normal Activity Weight Bearing Status: Weight bearing as tolerated Call your doctor if you observe: Fever of 101 or Higher, Shortness of breath, Dizziness, Swelling in the ankles and Chest pain Meaningful Use Info Meaningful Use Meaningful Use Diagnoses (Choose all that apply): None applicable Ischemic Stroke Statin Dosing Therapy Reference: STATIN DOSE THERAPY REFERENCE: * Patients > 75 years receive moderate or high dose statin therapy. * Patients 75 years or YOUNGER should receive HIGH intensity statin dose unless contraindicated. You will be required to document reason for non-treatment if statin daily dose does not meet guidelines. HIGH DOSE STATIN THERAPY DAILY Atorvastatin > than or = to 40 mg Rosuvastatin > than or = to 20 mg Amlodipine + Atorvastatin > than or = to 2.5/40 mg Ezetimibe + Simvastatin 10/80 mg Simvastatin 80mg Discharge Plan Admission Admit Date/Time: 07/17/24 20:34 Primary Reason for Your Visit: covid 19 infection Attending Provider: Magali Bass Primary Care Provider: Collin Rogers Consulting Providers: Madhuri Gregg Instructions Patient Instructions: Coronavirus Disease 2019 (COVID-19): Overview Discharge Orders/Prescriptions Prescriptions: New dexamethasone 6 mg tablet 6 mg PO DAILY Qty: 8 0RF Continued tadalafil 20 mg tablet 20 mg PO ONCE PRN (Reason: ed) acetaminophen 500 mg tablet 500 mg PO Q6H PRN (Reason: fever or pain) clonazepam 1 mg tablet 1 mg PO QHS PRN PRN (Reason: sleep) ergocalciferol (vitamin D2) [Vitamin D2] 1,250 mcg (50,000 unit) capsule 1,250 mcg PO QWEEK losartan 50 mg tablet 50 mg PO DAILY testosterone 1 % (25 mg/2.5gram) gel in packet transdermal tramadol 50 mg tablet 50 mg PO BID PRN PRN (Reason: pain) Referrals / Follow Up: Collin Rogers MD [Primary Care Provider] - Within 1 Week Disposition Disposition (needs filled in before D/C Order can be placed): Home, Self Care Charges/Coding Visit Charges Inpatient E&M: 87750 Disch Hosp >30min
[2024-07-19 11:31] VITALS: O2SAT 92; O2SAT 93
== END 2024-07-19 12:29 | disposition home or self-care (01) | DRG 177 ==
LOC: ED 20:44 → ICU 07-18 07:12
PROVIDERS: Admitting Provider Family Medicine; Emergency Provider Emergency Medicine; PCP Family Medicine; Visit Provider Student in an Organized Health Care Education/Training Program
DX: U07.1 COVID-19 (principal); J18.9 Pneumonia, unspecified organism; E87.1 Hypo-osmolality and hyponatremia; Z68.41 Body mass index [BMI] 40.0-44.9, adult; I12.9 Hypertensive chronic kidney disease with stage 1 through stage 4 chronic kidney disease, or unspecified chronic kidney disease; E66.01 Morbid (severe) obesity due to excess calories; N18.2 Chronic kidney disease, stage 2 (mild); G47.33 Obstructive sleep apnea (adult) (pediatric); Z79.899 Other long term (current) drug therapy
CPT/HCPCS: 71045; 80048; 80053; 80076; 82550; 82728; 83605; 83615; 83880; 84145; 84484; 85025; 85379; 86140; 87631; 90656; 93005; 94640; 94668; 94760; 94762; 97162; 99284; J7030; J7050; A4216; J0248

== ENCOUNTER 2025-10-27 00:54 | Emergency (ER) | payer OTHER, SELFPAY ==
[2025-10-27 00:55] VITALS: PULSE 77; RESP 16; TEMP 36.7; O2SAT 98; BMI 38.8
[2025-10-27 00:58] VITALS: BP 142/92
--- OUTSIDE RECORDS SUMMARY | 2025-10-27 01:17 | XMS RPT_ITS | CCD ---
Author Organization [facility] Care Team Providers Care Invisible Braces Orthodontist Name Role Phone IMCA Unavailable Unavailable Myah Arteaga Unavailable Unavailable IMCA Unavailable Unavailable Myah Arteaga Unavailable Unavailable IMCA Unavailable Unavailable Myah Arteaga Unavailable Unavailable Unavailable Primary Care Provider Unavailizaiah e Unavailable Primary Care Provider UnavailMyah Cheng MD Primary Care Provider Dawit Carrillo MD Unavailable Dawit Carrillo MD Unavailable Edward KINNEY, Megan Unavailable [phone] Myah Arteaga MD Primary Care Provider Dawit Carrillo MD Unavailable Dawit Carrillo MD Unavailable Edward KINNEY, Megan Unavailable Myah Arteaga MD Primary Care Provider Dawit Carrillo MD Unavailable Edward KINNEY, Megan Unavailable [phone] Myah Arteaga MD Primary Care Provider [phone] Dawit Carrillo MD Unavailable Dawit Carrillo MD Unavailable Edward KINNEY, Megan Unavailable [phone] Unavailable Primary Care Provider UnavailRIK Guillen Attending Unavailable ANNIE ORTIZ Referring Unavailable MYAH ARTEAGA Primary Care Unavailable MYAH ARTEAGA Referring Unavailable MYAH ARTEAGA Primary Care Unavailable MYAH ARTEAGA Referring Unavailable MYAH ARTEAGA Primary Care Unavailable Myah Arteaga MD Primary Care Provider [phone] DIANE, MYAH J Referring Unavailable DIANE, MYAH J Primary Care Unavailable FELICIA BROUSSARD Referring Unavailable DIANE, MYAH J Primary Care Unavailable Edward PT, Megan Unavailable [phone] WhiteMadhuri L Attending Unavailable [place], Myah Primary Care Unavailable White, Madhuri L Admitting Unavailable White, Madhuri L Consulting Unavailable White, Madhuri L Admitting Unavailable Diane, Myah Primary Care Unavailable Koram, Magali Otilia Attending Unavailable White, Madhuri L Consulting Unavailable Koram, Magali Otilia Consulting Unavailable White, Madhuri L Consulting Unavailable [place], Myah Primary Care Unavailable Koram, Magali Otilia Attending Unavailable White, Madhuri L Admitting Unavailable Unavailable Primary Care Provider Taya Moore SHIFT BOSS.Marita DEWITT Unavailable Suppan SHIFT BOSS.ESDRAS, Tara A Unavailable [phone] Suppan SHIFT BOSS.ESDRAS, Tara A Unavailable DIANE, MYAH J Primary Care Unavailable DIANE, MYAH J Primary Care Unavailable KARY KRAUSE Attending Unavailable CABANDUGAMA, PEMINDA Referring Unavailable DIANE, MYAH J Primary Care Unavailable FARIDA, KAMAL Referring Unavailable DIANE, MYAH J Primary Care Unavailable FARIDA, KAMAL Referring Unavailable DIANE, MYAH J Primary Care Unavailable DIANE, MYAH J Primary Care Unavailable CARMELINA, SANTY Referring Unavailable DIANE, MYAH J Primary Care Unavailable TARA HILLIARD A Referring Unavailable DIANE, MYAH J Primary Care Unavailable CABANDUGAMA, PEMINDA Referring Unavailable DIANE, MYAH J Primary Care Unavailable SHARLA GAMEZ Attending Unavailable CABANDUGAMA, PEMINDA Referring Unavailable DIANE, MYAH J Primary Care Unavailable CARMELINA, SANTY Referring Unavailable DIANE, MYAH J Attending Unavailable DIANE, MYAH J Primary Care Unavailable ANNIE DONATO Referring Unavailable DIANE, MYAH J Primary Care Unavailable DIANE, MYAH J Primary Care Unavailable CABANDUGAMA, PEMINDA Attending Unavailable TARA HILLIARD A Attending Unavailable DIANE, MYAH J Primary Care Unavailable NGA HILLIARDQUELINE A Referring Unavailable NATALI BUTLER Attending Unavailable DIANE, MYAH J Primary Care Unavailable DIANE, MYAH J Primary Care Unavailable NATALI BUTLER Attending Unavailable DIANE, MYAH J Primary Care Unavailable FARIDA, KAMAL Attending Unavailable SELF Referring Unavailable LACY KESSLER Attending Unavailable TARA HILLIARD Referring Unavailable DIANE, MYAH Glass Primary Care Unavailable LACY KESSLER Referring Unavailable DIANE, MYAH Glass Primary Care Unavailable DIANE, MYAH Glass Primary Care Unavailable LAYLA LEWIS Attending Unavailable LACY KESSLER Referring Unavailable DIANE, MYAH Glass Primary Care Unavailable DIANE, MYAH Maria Luisa Primary Care Unavailable LAYLA LEWIS Referring Unavailable DIANE, MYAH Maria Luisa Primary Care Unavailable SHERON MARK Attending Unavailable DIANE, MYAH Maria Luisa Referring Unavailable DIANE, MYAH J Primary Care Unavailable NATALI BUTLER Attending Unavailable DIANE, MYAH Maria Luisa Primary Care Unavailable SELF Referring Unavailable DIANE, MYAH Maria Luisa Attending Unavailable DIANE, MYAH Maria Luisa Primary Care Unavailable SELF Referring Unavailable DIANE, MYAH Glass Referring Unavailable DIANE, MYAH Glass Primary Care Unavailable Allergies Allergy Classification Reported Allergen(s) Allergy Type Date of Onset Reaction(s) Facility Angiotensin Converting Enzyme (RYAN) Inhibitors (1 source) Lisinopril Drug Allergy 4 Intolerance [facility] Work Phone: NSAIDs (1 source) celecoxib Drug Allergy 0 Rash [facility] Penicillins (antibiotic) (1 source) Penicillin G Drug Allergy 5 [facility] Work Phone: Sulfonamides (antibiotic) (1 source) Sulfonamides (Antibiotic) Drug Allergy 5 [facility] (20 sources) celecoxib; Translations: [CELECOXIB] Drug Allergy 0 [facility] Repository (20 sources) penicillin; Translations: [PENICILLIN G] Drug Allergy 5 [facility] Repository (20 sources) Sulfonamides (Antibiotic); Translations: [SULFA (SULFONAMIDE ANTIBIOTICS)] Propensity to adverse reactions (disorder) 5 [facility] Repository (5 sources) Penicillins Propensity to adverse reactions to drug 3 Rash [facility] (4 sources) Sulfonamides (Antibiotic) Propensity to adverse reactions to drug 3 [facility] (3 sources) Penicillins Propensity to adverse reactions to drug 3 [facility] Work Phone: (3 sources) Sulfonamides (Antibiotic) Propensity to adverse reactions to drug 3 [facility] (3 sources) Penicillins Allergy to substance 3 Rash [facility] (20 sources) Lisinopril; Translations: [LISINOPRIL] Drug Allergy 4 Intolerance [facility] Work Phone: (1 source) Penicillins Drug allergy (disorder) 4 [facility] Repository Medications Current Medications Medication Drug Class(es) Dates Sig (Normalized) Sig (Original) acetaminophen 500 mg oral tablet (20 sources) Start: 12-03-2021 End: 08-06-2025 take 2 tablets by mouth every eight hours as needed for pain acetaminophen (TYLENOL EXTRA STRENGTH) 500 mg tablet Indications: Mononeuritis of lower extremity, unspecified laterality Take 2 tablets by mouth every 8 hours as needed for pain. 180 tablet 3 08/06/2024 08/06/2025 Active Start: 11-09-2020 End: 12-03-2021 take 1 tablet by mouth three times daily acetaminophen (TYLENOL) 500 mg tablet Take 1 tablet by mouth three times daily. 11/09/2020 12/03/2021 Discontinued Comment on above: Take 2 tablets by mo [facility] every 8 hours as needed for pain. [id number] 200 actuat albuterol 0.09 mg/actuat metered dose inhaler (20 sources) beta2-Adrenergic Agonist Start: 07-17-2024 albuterol (PROVENTIL) 2.5 mg /3 mL (0.083 %) nebulizer solution Indications: Bronchitis Use 3 mL via nebulizer every 6 hours as needed for wheezing/shortness of breath. Use over 5-15minutes. 180 mL 1 07/17/2024 Active Start: 07-06-2024 End: 02-02-2025 take 2 puff(s) by inhalation every four hours as needed for wheezing albuterol HFA (VENTOLIN HFA) 90 mcg/actuation inhaler Indications: Moderate persistent reactive airway disease with wheezing without complication (HCC) Inhale 2 Puffs as instructed every 4 hours as needed for wheezing/shortness of breath. 3 Each 1 08/06/2024 Active aspirin 81 mg delayed release oral tablet (20 sources) Platelet Aggregation Inhibitor, Nonsteroidal Anti-inflammatory Drug Start: 06-02-2025 take 1 tablet by mouth once daily aspirin, enteric coated (ECOTRIN LOW STRENGTH) 81 mg EC tablet Take 1 tablet by mouth once daily. 30 tablet 11 06/02/2025 Active Start: 12-03-2021 End: 10-27-2022 take 1 tablet by mouth twice daily aspirin, enteric coated (ECOTRIN LOW STRENGTH) 81 mg EC tablet Take 1 tablet by mouth twice daily. 60 tablet 0 12/03/2021 10/27/2022 Discontinued Comment on above: Take 1 tablet by myron th twice daily. atorvastatin 10 mg oral tablet (10 sources) HMG-CoA Reductase Inhibitor Start: 025 take 1 tablet by mouth once daily atorvastatin (LIPITOR) 10 mg tablet Take 1 tablet by mouth once daily. 90 tablet 3 06/02/2025 Active Budesonide / formoterol (20 sources) Corticosteroid, beta2-Adrenergic Agonist Start: 024 take 2 puff(s) by inhalation twice daily budesonide-formoter ol (SYMBICORT) 80-4.5 mcg/actuation inhaler Inhale 2 Puffs as instructed two times a day. 1 Each 5 10/01/2024 Active clonazePAM 1 mg oral tablet (20 sources) Benzodiazepine Start: End: 022 clonazePAM (KLONOPIN) 1 mg tablet Indications: Adjustment disorder with depressed mood TAKE 1/2 TABLET THREE TIMES A DAY NEEDED 45 tablet 06/27/2022 Active Start: 02-25-2022 End: 04-26-2022 take 1 tablet by mouth three times daily as needed clonazePAM orally disintegrating (KLONOPIN WAFER) 0.25 mg disintegrating tablet Indications: Recurrent major depressive disorder, remission status unspecified (HCC) Take 1 tablet by mouth three times daily as needed for up to 60 days. 90 tablet 1 02/25/2022 04/26/2022 Active Start: 07-31-2017 End: 02-21-2022 take 1 tablet by mouth three times daily clonazePAM (KLONOPIN) 0.5 mg tablet Take 1 tablet by mouth three times daily. 07/31/2017 02/21/2022 Discontinued (Other) Comment on above: Take 1 tablet by myron th three times daily. Take 1 tablet by myron th three times daily as needed for up to 60 days. TAKE 1/2 TABLET THRE E TIMES A DAY NEEDED CPAP (20 sources) Start: 07-11-2023 CPAP Indications: AMANDA (obstructive sleep apnea) Initiate Auto PAP @ 5-20 cm of water with humidification. Mask (per patient preference) optional chin strap (if indicated) , filters, tubing, humidifier and lifetime supplies. Current machine is 7 years old and needs replaced. Insurance if refusing titration sleep study. 1 Each 07/11/2023 Active Start: 07-11-2023 CPAP Indicatio ns: AMANDA (obstructive sleep apnea) Initiate Auto PAP @ 5-20 cm of water with humidification. Mask (per patient preference) optional chin strap (if indicated) , filters, tubing, humidifier and lifetime supplies. Current machine is 7 years old and needs replaced. Insurance if refusing titration sleep study. 1 Each 0 07/11/2023 Active Comment on above: Initiate Auto PAP @ 5-20 cm of water with humidification. Mask (per patient preference) optional chin strap (if indicated) , filters, tubing, humidifier and lifetime supplies. Current machine is 7 years old and needs replaced. Insurance if refusing titration sleep study. CPAP/BIPAP/OTHER (20 sources) Start: 04-19-2024 End: 09-04-2051 CPAP/BIPAP/OTHER autoCPAP 5-20 cmH2O DME [facility] 1 Each 04/19/2024 09/04/2051 Active Start: 04-19-2024 End: 09-04-2051 CPAP/BIPAP/OTHER autoCPAP 5- 20 cmH2O DME [facility] 1 Each 0 04/19/2024 09/04/2051 Active dexamethasone 6 mg oral tablet (1 source) Corticosteroid Start: 07-19-2024 End: 07-28-2024 take 1 tablet by mouth once dexAMETHasone (DECADRON) 6 mg tablet Take 1 tablet by mouth every afternoon. 07/19/2024 07/28/2024 Active 12 hr dextromethorphan hydrobromide 30 mg / guaiFENesin 600 mg extended release oral tablet (10 sources) Uncompetitive V-nifwzu-J-aspartat e Receptor Antagonist, Sigma-1 Agonist Start: 07-23-2024 End: 08-22-2024 take 1 tablet by mouth twice daily dextromethorphan-g uaiFENesin (MUCINEX DM) 30-600 mg per tablet Indications: COVID-19 Take 1 tablet by mouth two times a day. 60 tablet 07/23/2024 08/22/2024 Active diclofenac sodium 0.01 mg/mg topical gel (20 sources) Nonsteroidal Anti-inflammatory Drug Start: 03-10-2025 diclofenac (VOLTAREN) 1 % topical gel Indications: Mononeuritis of right lower extremity APPLY 4 GRAMS TO THE LOWER EXTREMITY JOINT WITH A MAXIMUM OF 16 GRAMS PER DAY 100 g 3 03/10/2025 Active Start: 11-21-2019 End: 12-03-2021 diclofenac sodium (VOLTAREN) 1 % topical gel APPLY 4 GRAMS TO THE LOWER EXTREMITY JOINT WITH A MAXIMUM OF 16 GRAMS PER DAY 100 g 3 11/21/2019 12/03/2021 Discontinued Start: 07-31-2017 apply 4 g topically every six hours Diclofenac Sodium Active 4 GM TOPICAL EVERY 6 HOURS July 31, 2017 12:00am doxycycline hyclate 100 mg oral tablet (3 sources) Tetracycline-class Drug Start: 07-06-2024 End: 07-11-2024 take 1 tablet by mouth twice daily doxycycline (VIBRA-TABS) 100 mg tablet Take 1 tablet by mouth two times a day for 5 days. 10 tablet 07/06/2024 07/11/2024 Active gabapentin 300 mg oral capsule (2 sources) Anti-epileptic Agent Start: 12-07-2021 End: 02-21-2022 take 1 capsule by mouth once daily gabapentin (NEURONTIN) 300 mg capsule Indications: Lumbago-sciatica due to displacement of lumbar intervertebral disc Take 1 capsule by mouth once daily for 14 days. 14 capsule 0 12/07/2021 02/21/2022 Discontinued (Other) Comment on above: Take 1 capsule by mouth once daily for 1 4 days. iv contrast (will be provided with radiology test) (11 sources) Start: 07-23-2024 End: 07-24-2024 iv contrast (will be provided with radiology test) Indications: COVID-19 , Acute respiratory failure with hypoxia (HCC) CT Chest W -Inject, intravenously, once for 1 dose.No IV access, insert saline lock prior to the beginning of sedation, infusion, injection of imaging exam. Discontinue saline lock post exam. If Pt. has a central line or IVAD, may access for administration according to line specific nursing protocol. Once exam is complete flush line and de-access according to line specific nursing protocol in the CT contrast administration guidelines link. 1 Each 07/23/2024 07/24/2024 Active Start: 02-23-2024 End: 02-24-2024 iv contrast (will be provide d with radiology test) MRI Kidney Inject, intravenously, once for 1 dose. No IV access, insert saline lock prior to the beginning of sedation, infusion, injection of imaging exam. Discontinue saline lock post exam. If Pt. has a central line or IVAD, may access for administration according to line specific nursing protocol. Once exam is complete flush line and de-access according to line specific nursing protocol in the MR contrast administration guidelines link. 1 Each 0 02/23/2024 02/24/2024 Start: 02-23-2024 End: 02-24-2024 iv contrast (will be provide d with radiology test) MRI Kidney Inject, intravenously, once for 1 dose. No IV access, insert saline lock prior to the beginning of sedation, infusion, injection of imaging exam. Discontinue saline lock post exam. If Pt. has a central line or IVAD, may access for administration according to line specific nursing protocol. Once exam is complete flush line and de-access according to line specific nursing protocol in the MR contrast administration guidelines link. 1 Each 0 02/23/2024 02/24/2024 Active Start: 02-13-2024 End: 02-14-2024 iv contrast (will be provide d with radiology test) MRI LSP Inject, intravenously, once for 1 dose. No IV access, insert saline lock prior to the beginning of sedation, infusion, injection of imaging exam. Discontinue saline lock post exam. If Pt. has a central line or IVAD, may access for administration according to line specific nursing protocol. Once exam is complete flush line and de-access according to line specific nursing protocol in the MR contrast administration guidelines link. 1 Each 0 02/13/2024 02/14/2024 Active Start: 02-13-2024 End: 02-14-2024 inject 1 dose intravenously once iv contrast (will be provided with radiology test) Indications: Soft tissue mass MRI TSP Inject, intravenously, once for 1 dose. No IV access, insert saline lock prior to the beginning of sedation, infusion, injection of imaging exam. Discontinue saline lock post exam. If Pt. has a central line or IVAD, may access for administration according to line specific nursing protocol. Once exam is complete flush line and de-access according to line specific nursing protocol in the MR contrast administration guidelines link. 1 Each 0 02/13/2024 02/14/2024 Active Comment on above: MRI LSP Inject, intr avenously, once for 1 dose. No IV access, insert saline lock prior to the beginning of sedation, infusion, injection of imaging exam. Discontinue saline lock post exam. If Pt. has a central line or IVAD, may access for administration according to line specific nursing protocol. Once exam is complete flush line and de-access according to line specific nursing protocol in the MR contrast administration guidelines link. MRI TSP Inject, intr avenously, once for 1 dose. No IV access, insert saline lock prior to the beginning of sedation, infusion, injection of imaging exam. Discontinue saline lock post exam. If Pt. has a central line or IVAD, may access for administration according to line specific nursing protocol. Once exam is complete flush line and de-access according to line specific nursing protocol in the MR contrast administration guidelines link. levoFLOXacin 750 mg oral tablet (4 sources) Quinolone Antimicrobial Start: 07-17-20 End: 07-24-20 24 take 1 tablet by mouth once daily levoFLOXacin (LEVAQUIN) 750 mg tablet Indications: Bronchitis Take 1 tablet by mouth once daily for 7 days. 7 tablet 07/17/2024 07/24/2024 Active lidocaine 40 mg/ml topical cream (20 sources) Antiarrhythmic, Amide Local Anesthetic Start: 03-04-20 25 lidocaine (LMX) 4 % cream Apply to affected area once daily as needed. 28 g 1 03/04/2025 Active Start: 02-25-2025 lidocaine HCl 2 % crea Apply to affected area once daily as needed. 118 mL 1 02/25/2025 Active Start: 12-16-2021 End: 02-25-2025 lidocaine 4 % gel Apply 1 tu be to affected area once daily. 120 g 2 02/25/2025 02/25/2025 Discontinued Comment on above: [The details of the medication are not available because there are pending changes by a home health clinician.] Apply 1 Tube to affe cted area once daily. losartan potassium 50 mg oral tablet (20 sources) Angiotensin 2 Receptor Reji Start: 06-05-2024 End: 07-30-2025 take 1 tablet by mouth once daily losartan (COZAAR) 50 mg tablet Indications: Proteinuria, unspecified type Take 1 tablet by mouth once daily. 90 tablet 3 05/01/2025 07/30/2025 Active Start: 04-23-2024 End: 10-20-2024 take 1 tablet by mouth once daily losartan (COZAAR) 25 mg tablet Indications: hypertension Take 1 tablet by mouth once daily. 90 tablet 1 04/23/2024 06/05/2024 Discontinued methylPREDNISolone (10 sources) Corticosteroid Start: 02-13-2024 End: 02-19-2024 methylPREDNISolone (MEDROL, ROCIO,) 4 mg Dose-Pack Indications: Pruritus Follow dosing instructions, take with food. 21 tablet 0 02/13/2024 02/19/2024 Active Start: 08-04-2022 End: 10-27-2022 methylPREDNISolone (MEDROL, ROCIO,) 4 mg Dose-Pack As Instructed per package 21 tablet 0 08/04/2022 10/27/2022 Discontinued Start: 08-04-2022 methylPREDNISo lone (MEDROL, ROCIO,) 4 mg Dose-Pack As Instructed per package 21 tablet 0 08/04/2022 Active Comment on above: As Instructed per francisco ckage Follow dosing instru ctions, take with food. mupirocin 0.02 mg/mg topical ointment (3 sources) RNA Synthetase Inhibitor Antibacterial Start: 04-15-20 Mupirocin Active 1 APPLIC TOPICAL THREE TIMES A DAY April 15, 2023 12:00am naproxen 500 mg oral tablet (1 source) Nonsteroidal Anti-inflammatory Drug Start: 08-04-20 End: 09-03-20 take 1 tablet by mouth every twelve hours as needed naproxen (NAPROSYN) 500 mg tablet Take 1 tablet by mouth twice daily as needed (for pain). Take with food 60 tablet 0 08/04/2022 09/03/2022 Active Comment on above: Take 1 tablet by myron th twice daily as needed (for pain). Take with food pantoprazole 40 mg delayed release oral tablet (20 sources) Proton Pump Inhibitor Start: 10-01-20 24 End: 03-12-20 take 1 tablet by mouth once daily pantoprazole DR (PROTONIX) 40 mg tablet TAKE 1 TABLET BY MOUTH DAILY 30 tablet 5 03/12/2025 Active Start: 12-03-2021 End: 02-21-2022 take 1 tablet by mouth once daily pantoprazole DR (PROTONIX) 40 mg tablet Take 1 tablet by mouth once daily for 14 days. 14 tablet 0 12/03/2021 02/21/2022 Discontinued (Other) Comment on above: Take 1 tablet by myron th once daily for 14 days. predniSONE 10 mg oral tablet (1 source) Start: 01-01-2025 End: 01-10-2025 predniSONE (DELTASONE) 10 mg tablet Take 4 tabs daily for 3 days, then 2 tabs daily for 3 days, then 1 tab daily for 3 days with food. 21 tablet 01/01/2025 01/10/2025 Active tadalafil 20 mg oral tablet (20 sources) Phosphodiesterase 5 Inhibitor Start: 12-09-2019 End: 08-14-2024 Tadalafil (CIALIS) 20 mg tablet TAKE 1 TABLET BY MOUTH 1-2 HOURS BEFORE SEXUAL INTRACOURSE NEEDED 6 tablet 17 08/14/2024 Active Start: 03-20-2018 take 20 mg by mouth once Tadal afil Active 20 MG PO ONCE March 20, 2018 12:00am Comment on above: [The details of the medication are not available because there are pending changes by a home health clinician.] TAKE 1 TABLET BY MYRON TH 1-2 HOURS BEFORE SEXUAL INTRACOURSE NEEDED 5000 mg testosterone 0.01 mg/mg topical gel (20 sources) Androgen Start: 08-15-2024 End: 01-01-2026 testosterone (ANDROGEL) 50 mg / 5 g (1%) 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 Alternating with 25 mg. 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 450 g 0 10/16/2023 05/22/2024 Discontinued Comment on above: Apply 1 Packet to af fected area once daily for 180 days. Apply 1 Packet as di rected once daily for 180 days. tirzepatide, weight loss (ZEPBOUND) 2.5 mg/0.5 mL solution (5 sources) Start: 07-02-20 End: 07-30-20 inject 0.5 mL by subcutaneous injection every week tirzepatide, weight loss (ZEPBOUND) 2.5 mg/0.5 mL solution Inject 0.5 mL subcutaneously one time a week for 28 days. 2 mL 5 07/02/2025 07/30/2025 Active traMADol hydrochloride 50 mg oral tablet (20 sources) Opioid Agonist Start: 07-10-20 traMADol (ULTRAM) 50 mg tablet 07/10/2024 Active End: 12-03-2021 take 50 mg by mouth twice daily tramadol HCl (TRAMADOL ORAL) Take 50 mg by mouth twice daily. 12/03/2021 Discontinued Completed/Discontinued Medications Medication Drug Class(es) Dates Sig (Normalized) Sig (Original) acetaminophen 325 mg / HYDROcodone bitartrate 5 mg oral tablet (4 sources) Opioid Agonist Start: 10-28-2019 End: 11-04-2019 take 1 tablet by mouth every eight hours as needed Hydrocodone-Aceta minophen Discontinued 1 TABLET PO EVERY 8 HOURS NEEDED 18 05October 28, 2019 November 04, 2019 1:08am amitriptyline hydrochloride 100 mg oral tablet (13 sources) Tricyclic Antidepressant Start: 10-26-2022 End: 06-08-2023 take 1 tablet by mouth once daily at bedtime amitriptyline (ELAVIL) 100 mg tablet Take 100 mg by mouth daily at bedtime. 0 10/26/2022 06/08/2023 Discontinued (Other) Comment on above: Take 100 mg by mouth daily at bedtime. 24 hr amphetamine aspartate 5 mg / amphetamine sulfate 5 mg / dextroamphetamine saccharate 5 mg / dextroamphetamine sulfate 5 mg extended release oral capsule (20 sources) Central Nervous System Stimulant Start: 04-16-2021 End: 10-25-2021 amphetamine-dextr oamphetamine XR (ADDERALL XR) 20 mg 24 hr capsule Take 60 mg by mouth twice daily. 04/16/2021 10/25/2021 Discontinued take 1 capsule by mo [facility] once daily amphetamine-dextroamphetamine XR (ADDERA LL XR) 10 mg capsule Take 10 mg by mouth once daily. Active benzonatate 100 mg oral capsule (15 sources) Non-narcotic Antitussive Start: 07-17-2024 End: 10-01-2024 take 1-2 capsules by mouth three times daily as needed for cough benzonatate (TESSALON PERLES) 100 mg capsule Indications: Bronchitis Take 1-2 capsules by mouth three times a day as needed for cough. 60 capsule 1 07/17/2024 10/01/2024 Discontinued 12 hr buPROPion hydrochloride 150 mg extended release oral tablet (20 sources) Aminoketone Start: 05-10-2022 End: 11-06-2022 take 1 tablet by mouth twice daily buPROPion SR (ZYBAN SR; WELLBUTRIN SR) 150 mg 12 hr tablet Take 1 tablet by mouth twice daily. 60 tablet 5 05/10/2022 10/27/2022 Discontinued Start: 02-25-2022 take 1 tablet by myron twice daily buPROPion SR (WELLBUTRIN SR) 100 mg 12 hr tablet Take 1 tablet by mouth twice daily. 60 tablet 2 02/25/2022 Active take 1 tablet by myron th twice daily buPROPion (WELLBUTRIN) 75 mg tablet Take 75 mg by mouth two times a day. Active End: 02-21-2022 take 1 tablet by mouth twice daily buPROPion SR (ZYBAN SR; WELLBUTRIN SR) 150 mg 12 hr tablet Take 150 mg by mouth twice daily. 02/21/2022 Discontinued (Other) Comment on above: Take 150 mg by mouth twice daily. Take 1 tablet by [facility] twice daily. cabergoline 0.5 mg oral tablet (17 sources) Ergot Derivative Start: 2 End: 3 take 0.5 tablet by mouth every week cabergoline (DOSTINEX) 0.5 mg tablet Take 0.5 tablets by mouth one time a week. 6 tablet 1 09/08/2022 06/08/2023 Discontinued (Other) Comment on above: Take 0.5 tablets by mouth one time a week. COMPOUNDED PRESCRIPTION (20 sources) Start: 5 End: 4 COMPOUNDED PRESCRIPTION Autopap @ 4-20 cm of water with humidification mask (per patient preference) optional chin strap (if indicated) and lifetime supplies DX: AMANDA 327.23 1 Device 0 01/14/2015 02/26/2024 Discontinued Start: 01-14-2015 COMPOUNDED PRE SCRIPTION Autopap @ 4-20 cm of water with humidification mask (per patient preference) optional chin strap (if indicated) and lifetime supplies DX: AMANDA 327.23 1 Device 0 01/14/2015 Active Comment on above: Autopap @ 4-20 cm of water with humidification mask (per patient preference) optional chin strap (if indicated) and lifetime supplies DX: AMANDA 327.23 24 hr desvenlafaxine succinate 50 mg extended release oral tablet (20 sources) Serotonin and Norepinephrine Reuptake Inhibitor Start: 024 End: 024 take 1 tablet by mouth once daily, then take 1 tablet by mouth every twenty-four hours desvenlafaxine ER (PRISTIQ) 50 mg 24 hr tablet Take 50 mg by mouth once daily. 0 12/29/2023 06/10/2024 Discontinued (Side Effects) Comment on above: Take 50 mg by mouth once daily. DULoxetine 60 mg delayed release oral capsule (20 sources) Serotonin and Norepinephrine Reuptake Inhibitor Start: 022 End: 023 take 1 capsule by mouth twice daily DULoxetine (CYMBALTA) 60 mg capsule Take 1 capsule by mouth twice daily. 60 capsule 5 05/10/2022 12/16/2022 Discontinued (Discontinued by Patient) Start: 11-06-2020 End: 02-21-2022 take 2 tablets by mouth twice daily at bedtime DULoxetine (CYMBALTA) 30 mg capsule Take 60 mg by mouth twice daily. 0.5mg Three times daily and 2 tablets at bedtime 11/06/2020 02/21/2022 Discontinued (Other) Comment on above: Take 60 mg by mouth twice daily. 0.5mg Three times daily and 2 tablets at bedtime Take 60 mg by mouth twice daily. Take 1 capsule by mo uth twice daily. ergocalciferol 1.25 mg oral capsule (20 sources) Provitamin D2 Compound Start: End: take 1 capsule by mouth every week ergocalciferol 50,000 unit capsule (VITAMIN D2, DRISDOL) Take 1 capsule by mouth one time a week. 12 capsule 1 08/14/2024 12/19/2024 Discontinued fluticasone / salmeterol (9 sources) Corticosteroid, beta2-Adrenergic Agonist Start: End: take 1 puff(s) by inhalation twice daily fluticasone-salmetero l (ADVAIR, WIXELA) 250-50 mcg/dose inhaler Indications: Moderate persistent reactive airway disease with wheezing without complication Inhale 1 Puff as instructed two times a day. 60 Each 2 08/06/2024 10/01/2024 Discontinued Start: 08-06-2024 End: 11-04-2024 take 1 puff(s) by inhalation twice daily fluticasone-salmeterol (ADVAIR, WIXELA) 250-50 mcg/dose inhaler Indications: Moderate persistent reactive airway disease with wheezing without complication Inhale 1 Puff as instructed two times a day. 60 Each 2 08/06/2024 11/04/2024 Active hydroCHLOROthiazide 25 mg oral tablet (20 sources) Thiazide Diuretic Start: 03-14-2022 End: 12-13-2023 take 1 tablet by mouth once daily hydroCHLOROthiazide (HYDRODIURIL, ESIDRIX) 25 mg tablet Indications: Primary hypertension Take 1 tablet by mouth once daily. 90 tablet 3 12/13/2022 06/08/2023 Discontinued (Other) Start: 02-21-2022 take 12.5 mg by mout h once daily Hydrochlorothiazide Active 12.5 MG PO DAILY February 21, 2022 12:00am Comment on above: Take 12.5 mg by mout h once daily. Take 1 tablet by myron th once daily. ibuprofen 600 mg oral tablet (2 sources) Nonsteroidal Anti-inflammatory Drug Start: 1 End: 2 take 1 tablet by mouth once daily ibuprofen (MOTRIN) 600 mg tablet Take 600 mg by mouth once daily. 11/09/2020 12/03/2021 Discontinued lisinopril 10 mg oral tablet (3 sources) Angiotensin Converting Enzyme Inhibitor Start: 4 End: 4 take 1 tablet by mouth once daily lisinopril (ZESTRIL) 10 mg tablet Take 1 tablet by mouth once daily. 90 tablet 3 03/22/2024 04/23/2024 Discontinued meloxicam 7.5 mg oral tablet (7 sources) Nonsteroidal Anti-inflammatory Drug Start: 3 End: 4 meloxicam (MOBIC) 7.5 mg tablet take 1 tablet by mouth once nitesh y meloxicam (MOBIC) 7.5 mg tablet Take 7.5 mg by mouth once daily. 0 Active Comment on above: Take 7.5 mg by mouth once daily. mexiletine hydrochloride 150 mg oral capsule (16 sources) Antiarrhythmic Start: 024 End: mexiletine (MEXITIL) 150 mg capsule omeprazole 20 mg delayed release oral capsule (20 sources) Proton Pump Inhibitor Start: 022 End: 023 take 1 capsule by mouth once daily before breakfast omeprazole (PRILOSEC) 20 mg capsule Indications: GERD without esophagitis Take 1 capsule by mouth daily before breakfast. 1/2 hr before meal. 30 capsule 5 10/27/2022 06/08/2023 Discontinued (Other) Comment on above: Take 1 capsule by mo uth daily before breakfast. 1/2 hr before meal. polyethylene glycol 3350 960724 mg / potassium chloride 2970 mg / sodium bicarbonate 6740 mg / sodium chloride 5860 mg / sodium sulfate 71010 mg powder for oral solution (1 source) Osmotic Laxative Start: End: peg 3350-Electrolytes (GOLYTELY) 236-22.74-6.74 -5.86 gram suspension Take 4,000 mL by mouth one time only for 1 dose. 1 Each 0 05/06/2022 05/06/2022 Comment on above: Take 4,000 mL by myron th one time only for 1 dose. regadenoson 0.4 mg injection (LEXISCAN) (2 sources) Start: End: regadenoson 0.4 mg injection (LEXISCAN) Start: 10-15-2024 End: 10-15-2024 0.4 mg, INTRAVENOUS, DIRE CTED NEEDED, 1 dose, Starting on Mon10/15/24 at 1150, Until Mon10/15/24 at 1125, Per-Protocol - for use during STRESS TEST procedure only, Give 0.4 mg (5 mL) over ~10 seconds, followed immediately by a 5 mL saline flush. Wait 10-20 seconds, then administer the radionuclide myocardial perfusion imaging agent., Cardiac Procedure Med Orders sildenafil 50 mg oral tablet (4 sources) Phosphodiesterase 5 Inhibitor Start: 07-31-2017 End: 03-20-2018 Sildenafil Discontinued 50 MG PO NEEDED July 31, 2017 12:00am March 20, 2018 9:08am traZODone hydrochloride 50 mg oral tablet (6 sources) Serotonin Reuptake Inhibitor take 1 tablet by mouth once daily at bedtime traZODone (DESYREL) 50 mg tablet Take 50 mg by mouth daily at bedtime. 0 Active Comment on above: Take 50 mg by mouth daily at bedtime. Problems Active Problems Problem Classification Problem Date Documented Da te Episodic/Chronic Acute cerebrovascular disease (4 sources) Cerebrovascular accident; Translations: [Cerebral infarction, unspecified] 03-01-2022 Chronic Adjustment disorders (20 sources) Adjustment disorder with depressed mood; Translations: [Adjustment disorder with depressed mood] Onset: 9 12-26-2008 Chronic Anxiety disorders (20 sources) Anxiety; Translations: [Anxiety disorder, unspecified] Onset: 3 Chronic Asthma (2 sources) Moderate persistent asthma; Translations: [Moderate persistent asthma, uncomplicated] 08-06-2024 Chronic Chronic obstructive pulmonary disease and bronchiectasis (1 source) Bronchitis; Translations: [Bronchitis, not specified as acute or chronic] 07-17-2024 Episodic Conditions associated with dizziness or vertigo (1 source) Dizziness; Translations: [Dizziness and giddiness] Episodic Coronary atherosclerosis and other heart disease (20 sources) Calcification of coronary artery; Translations: [Atherosclerotic heart disease of [place] coronary artery without angina pectoris] Onset: 4 10-01-2024 Chronic Disorders of lipid metabolism (20 sources) Mixed hyperlipidemia; Translations: [Mixed hyperlipidemia] Onset: 1 01-13-2011 Chronic Esophageal disorders (20 sources) Gastroesophageal reflux disease without esophagitis; Translations: [Gastro-esophageal reflux disease without esophagitis] Onset: 3 Chronic Essential hypertension (20 sources) Hypertensive disorder; Translations: [Essential (primary) hypertension] Onset: 3 Chronic Fever of unknown origin (1 source) Fever, unspecified; Translations: [Fever, unspecified] Onset: 4 Episodic Gastritis and duodenitis (4 sources) Gastritis; Translations: [Gastritis, unspecified, without bleeding] 07-27-2019 Episodic Hyperplasia of prostate (20 sources) Benign prostatic hyperplasia; Translations: [Benign prostatic hyperplasia with lower urinary tract symptoms] Onset: 6 01-18-2016 Chronic Miscellaneous mental health disorders (20 sources) Pain disorder with psychological factor; Translations: [Pain disorder with related psychological factors] Onset: 6 07-29-2016 Chronic Mood disorders (20 sources) Recurrent major depression; Translations: [Major depressive disorder, recurrent, unspecified] Onset: 3 Chronic Neoplasms of unspecified nature or uncertain behavior (20 sources) Neoplasm of uncertain behavior of skin; Translations: [Neoplasm of uncertain behavior of skin] Onset: 6 Resolved: 1 04-15-2011 Episodic Nutritional deficiencies (3 sources) Vitamin D deficiency; Translations: [Vitamin D deficiency, unspecified] Onset: 5 02-26-2024 Chronic Osteoarthritis (20 sources) Osteoarthritis of left hip joint; Translations: [Unilateral primary osteoarthritis, left hip] Onset: 1 10-25-2021 Chronic Other aftercare (2 sources) Patient encounter status; Translations: [Encounter for therapeutic drug level monitoring] 12-11-2023 Episodic Other aftercare (2 sources) Removal of sutures done; Translations: [Encounter for removal of sutures] 06-09-2025 Episodic Other connective tissue disease (2 sources) History of repair of hip joint; Translations: [Presence of left artificial hip joint] Chronic Other connective tissue disease (1 source) Tendinitis of left psoas tendon; Translations: [Psoas tendinitis, left hip] Episodic Other connective tissue disease (1 source) Other specified soft tissue disorders; Translations: [Soft tissue mass] Onset: 4 Episodic Other connective tissue disease (4 sources) Mass of soft tissue; Translations: [Other specified soft tissue disorders] 02-13-2024 Episodic Other connective tissue disease (1 source) Other symptoms and signs involving the musculoskeletal system; Translations: [Weakness of right lower extremity] Onset: 5 Episodic Other diseases of kidney and ureters (2 sources) Disorder of kidney and/or ureter; Translations: [Other specified disorders of kidney and ureter] 02-23-2024 Chronic Other diseases of kidney and ureters (1 source) Other specified disorders of kidney and ureter; Translations: [Other specified disorders of kidney and ureter] Onset: 4 Chronic Other ear and sense organ disorders (20 sources) Sensorineural hearing loss, bilateral; Translations: [Sensorineural hearing loss, bilateral] Onset: 3 Chronic Other ear and sense organ disorders (1 source) Tinnitus; Translations: [Tinnitus, unspecified ear] Episodic Other endocrine disorders (14 sources) Hypogonadotropic hypogonadism; Translations: [Testicular hypofunction] Onset: 1 10-25-2021 Chronic Other endocrine disorders (20 sources) Male hypogonadism; Translations: [Testicular hypofunction] Onset: 1 10-25-2021 Chronic Other endocrine disorders (1 source) Testicular hypofunction; 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] Onset: 1 Chronic Other gastrointestinal disorders (2 sources) Pharyngeal dysphagia; Translations: [Dysphagia, pharyngeal phase] Episodic Other gastrointestinal disorders (2 sources) Dysphagia; Translations: [Dysphagia, unspecified] Episodic Other gastrointestinal disorders (1 source) Dysphagia, pharyngeal phase; Translations: [Pharyngeal dysphagia] Onset: 3 Episodic Other hematologic conditions (1 source) Erythrocytosis; Translations: [Secondary polycythemia] 12-19-2024 Episodic Other hereditary and degenerative nervous system conditions (1 source) Restless legs; Translations: [Restless legs syndrome] 02-26-2024 Chronic Other hereditary and degenerative nervous system conditions (1 source) Restless legs syndrome; Translations: [RLS (restless legs syndrome)] Onset: Chronic Other inflammatory condition of skin (1 source) Pruritus, unspecified; Translations: [Unspecified pruritic disorder] 02-13-2024 Episodic Other injuries and conditions due to external causes (6 sources) Spinal cord injury without spinal bone injury; Translations: [Unspecified site of spinal cord injury without evidence of spinal bone injury] Onset: 9 Chronic Other injuries and conditions due to external causes (1 source) Sutured skin wound; Translations: [Other injury of unspecified body region, initial encounter] 05-19-2021 Episodic Other liver diseases (2 sources) Steatosis of liver; Translations: [Fatty (change of) liver, not elsewhere classified] 06-10-2024 Chronic Other lower respiratory disease (6 sources) Cough; Translations: [Acute cough] 07-06-2024 Episodic Other lower respiratory disease (1 source) Hypoxemia; Translations: [Hypoxemia] Onset: Episodic Other lower respiratory disease (1 source) Cough; Translations: [Post-COVID chronic cough] 10-01-2024 Episodic Other lower respiratory disease (2 sources) Nodule of lung; Translations: [Solitary pulmonary nodule] 10-01-2024 Episodic Other lower respiratory disease (4 sources) Rib pain; Translations: [Pleurodynia] 01-01-2025 Episodic Other lower respiratory disease (1 source) Solitary pulmonary nodule; Translations: [Lung nodule] Onset: 5 Episodic Other male genital disorders (1 source) Impotence of organic origin Onset: 9 Chronic Other nervous system disorders (20 sources) Mononeuropathy of lower limb; Translations: [Unspecified mononeuropathy of unspecified lower limb] Onset: 9 08-04-2016 Chronic Other nervous system disorders (1 source) Mononeuritis of lower limb, unspecified Onset: 9 10-12-2023 Chronic Other nervous system disorders (1 source) Numbness of face; Translations: [Anesthesia of skin] Episodic Other nervous system disorders (1 source) Impairment of balance; Translations: [Other abnormalities of gait and mobility] Episodic Other nervous system disorders (2 sources) Abnormal sensation; Translations: [Other disturbances of skin sensation] 05-07-2025 Episodic Other non-traumatic joint disorders (2 sources) Hip pain; Translations: [Pain in left hip] Episodic Other nutritional; endocrine; and metabolic disorders (20 sources) Morbid obesity; Translations: [Morbid (severe) obesity due to excess calories] Onset: 5 08-06-2015 Chronic Other nutritional; endocrine; and metabolic disorders (1 source) Morbid (severe) obesity due to excess calories; Translations: [Morbid obesity (HCC)] Onset: 5 Chronic Other nutritional; endocrine; and metabolic disorders (12 sources) Abnormal weight gain; Translations: [Abnormal weight gain] Onset: 5 05-19-2025 Episodic Other screening for suspected conditions (not mental disorders or infectious disease) (15 sources) Increased prolactin level; Translations: [Other specified abnormal findings of blood chemistry] Onset: 5 Episodic Other skin disorders (1 source) Actinic keratosis; Translations: [Actinic keratosis] Episodic Other skin disorders (2 sources) Skin lesion; Translations: [Disorder of the skin and subcutaneous tissue, unspecified] 05-07-2025 Episodic Other skin disorders (2 sources) Disorder of pigmentation, unspecified; Translations: [Dyschromia, unspecified] Onset: 5 06-23-2025 Episodic Other upper respiratory infections (1 source) Acute upper respiratory infection; Translations: [Acute upper respiratory infection, unspecified] 07-06-2024 Episodic Otitis media and related conditions (1 source) Recurrent acute serous otitis media of right middle ear; Translations: [Acute serous otitis media, recurrent, right ear] Episodic Residual codes; unclassified (20 sources) Obstructive sleep apnea syndrome; Translations: [Obstructive sleep apnea (adult) (pediatric)] Onset: 5 11-26-2014 Chronic Residual codes; unclassified (2 sources) Obstructive sleep apnea (adult) (pediatric); Translations: [AMANDA (obstructive sleep apnea)] Onset: 5 Chronic Residual codes; unclassified (1 source) Frequent night waking; Translations: [Insomnia, unspecified] 02-26-2024 Episodic Residual codes; unclassified (1 source) Insomnia, unspecified; Translations: [Frequent nocturnal awakening] Onset: 4 Episodic Respiratory failure; insufficiency; arrest (adult) (2 sources) Acute respiratory failure; Translations: [Acute respiratory failure with hypoxia] 07-23-2024 Episodic Spinal cord injury (1 source) Unspecified site of spinal cord injury without evidence of spinal bone injury Onset: 9 Chronic Spondylosis; intervertebral disc disorders; other back problems (20 sources) Degeneration of lumbar intervertebral disc; Translations: [Other intervertebral disc degeneration, lumbar region] Onset: 6 09-14-2016 Chronic Spondylosis; intervertebral disc disorders; other back problems (6 sources) Dorsalgia, unspecified; Translations: [Backache] Onset: 4 02-13-2024 Episodic Sprains and strains (1 source) Strain of muscle of chest wall; Translations: [Strain of muscle and tendon of front wall of thorax, initial encounter] 01-01-2025 Episodic Thyroid disorders (1 source) Hypothyroidism; Translations: [Hypothyroidism, unspecified] 12-19-2024 Chronic Unclassified (1 source) Unknown / UNK(Unknown) Onset: 8 Unclassified (1 source) Degeneration of intervertebral disc of lumbar region, unspecified whether pain present; Translations: [Degeneration of intervertebral disc of lumbar region, unspecified whether pain present] Onset: 6 Unclassified (1 source) Follow Up, Weight Management Onset: 5 Unclassified (1 source) Cough, unspecified type; Translations: [Cough, unspecified type] Onset: 4 Viral infection (2 sources) Disease caused by 2019-nCoV; Translations: [COVID-19] 07-23-2024 Episodic Viral infection (2 sources) COVID-19; Translations: [COVID-19] Onset: 4 Past or Other Problems Problem Classification Problem Date Documented Da te Episodic/Chronic Abdominal pain (20 sources) Left lower quadrant pain; Translations: [Left lower quadrant pain] Onset: 12-26-2008 Resolved: 08-23-2017 04-15-2011 Episodic Acquired foot deformities (20 sources) Right foot drop; Translations: [Foot drop, right foot] Onset: 08-06-2015 10-25-2021 Episodic Crushing injury or internal injury (7 sources) Injury of bladder and urethra; Translations: [Unspecified injury of bladder, initial encounter] Onset: 10-07-1989 08-04-2016 Episodic Fracture of upper limb (20 sources) Closed fracture of scaphoid bone of wrist; Translations: [Closed fracture of carpal bone] Onset: 10-07-1989 08-23-2017 Episodic Gastrointestinal hemorrhage (20 sources) Hemorrhage of rectum and anus; Translations: [Hemorrhage of anus and rectum] Onset: 12-26-2008 Resolved: 08-06-2015 08-06-2015 Episodic Genitourinary symptoms and ill-defined conditions (20 sources) Proteinuria; Translations: [Proteinuria, unspecified] Onset: 03-22-2024 02-16-2024 Episodic Immunizations and screening for infectious disease (20 sources) Blood group antibody titer - finding; Translations: [Other specified abnormal immunological findings in serum] Onset: 10-28-2021 10-28-2021 Episodic Intracranial injury (20 sources) Intracranial injury; Translations: [Concussion injury of body structure] Onset: 10-07-1989 07-30-2015 Episodic Malaise and fatigue (2 sources) Fatigue; Translations: [Other fatigue] Onset: 12-18-2024 12-18-2024 Episodic Nonspecific chest pain (5 sources) Chest pain; Translations: [Other chest pain] Onset: 06-02-2025 10-03-2024 Episodic Open wounds of extremities (20 sources) Laceration of thumb; Translations: [Laceration without foreign body of unspecified thumb without damage to nail, initial encounter] Onset: 06-07-2023 Resolved: 12-11-2023 04-15-2023 Episodic Other aftercare (1 source) Encounter for removal of sutures; Translations: [Visit for suture removal] Onset: 06-09-2025 Episodic Other and unspecified benign neoplasm (20 sources) Benign neoplasm of skin of upper limb; Translations: [Other benign neoplasm of skin of unspecified upper limb, including shoulder] Onset: 11-13-2006 Resolved: 04-15-2011 04-15-2011 Episodic Other bone disease and musculoskeletal deformities (20 sources) Mass of musculoskeletal structure; Translations: [Other specified disorders of bone, other site] Onset: 02-21-2024 02-21-2024 Episodic Other ear and sense organ disorders (20 sources) Bilateral subjective tinnitus of ears; Translations: [Tinnitus, bilateral] Onset: 12-13-2022 Episodic Other fractures (6 sources) Closed fracture pubis; Translations: [Unspecified fracture of unspecified pubis, initial encounter for closed fracture] Onset: 10-07-1989 Episodic Other fractures (12 sources) Closed fracture of pelvis; Translations: [Unspecified fracture of sacrum, initial encounter for closed fracture] Onset: 10-07-1989 08-04-2016 Episodic Other fractures (1 source) Closed fracture of sacrum and coccyx without mention of spinal cord injury Onset: 10-07-1989 08-10-2023 Episodic Other fractures (1 source) Closed fracture of pubis Onset: 10-07-1989 Episodic Other fractures (1 source) Closed unspecified fracture of pelvis Onset: 10-07-1989 08-10-2023 Episodic Other gastrointestinal disorders (20 sources) Oropharyngeal dysphagia; Translations: [Dysphagia, oropharyngeal phase] Onset: 06-08-2023 06-08-2023 Episodic Other gastrointestinal disorders (20 sources) Constipation; Translations: [Constipation, unspecified] Onset: 04-17-2012 Resolved: 08-06-2015 08-06-2015 Episodic Other injuries and conditions due to external causes (6 sources) Injury of lumbosacral plexus; Translations: [Injury of lumbosacral plexus, initial encounter] Onset: 10-07-1989 Episodic Other injuries and conditions due to external causes (3 sources) Foreign body of skin of hand; Translations: [Injury to unspecified nerve of pelvic girdle and lower limb(956.9)] Onset: 10-07-1989 Episodic Other injuries and conditions due to external causes (3 sources) Concussion injury of body structure; Translations: [Concussion] Onset: 10-07-1989 08-23-2017 Episodic Other injuries and conditions due to external causes (4 sources) Injury to unspecified nerve of pelvic girdle and lower limb; Translations: [Injury to unspecified nerve of pelvic girdle and lower limb(956.9)] Onset: 10-07-1989 Episodic Other injuries and conditions due to external causes (1 source) Injury to lumbosacral plexus Onset: 10-07-1989 Episodic Other lower respiratory disease (6 sources) Wheezing; Translations: [Wheezing] Onset: 10-07-1989 Episodic Other lower respiratory disease (1 source) Wheezing Onset: 10-07-1989 Episodic Other lower respiratory disease (1 source) Pleurodynia; Translations: [Rib pain on left side] Onset: 01-01-2025 Episodic Other male genital disorders (20 sources) Secondary erectile dysfunction; Translations: [Male erectile dysfunction, unspecified] Onset: 10-07-1989 Resolved: 03-20-2017 07-17-2023 Chronic Other nervous system disorders (20 sources) Facial paresthesia; Translations: [Paresthesia of skin] Onset: 06-07-2023 03-01-2022 Episodic Other nervous system disorders (1 source) Other disturbances of skin sensation; Translations: [Dysesthesia] Onset: 05-19-2025 Episodic Other skin disorders (20 sources) Sebaceous cyst of skin; Translations: [Sebaceous cyst] Onset: 10-13-2006 Resolved: 04-15-2011 04-15-2011 Episodic Other skin disorders (20 sources) Disorder of skin appendage; Translations: [Other hair color and hair shaft abnormalities] Onset: 10-13-2006 Resolved: 04-15-2011 04-15-2011 Episodic Other skin disorders (20 sources) Disorder of skin pigmentation; Translations: [Disorder of pigmentation, unspecified] Onset: 10-13-2006 Resolved: 04-15-2011 04-15-2011 Episodic Other skin disorders (1 source) Disorder of the skin and subcutaneous tissue, unspecified; Translations: [Skin lesion] Onset: 05-19-2025 Episodic Residual codes; unclassified (20 sources) History of palpitations; Translations: [Personal history of other specified conditions] Onset: 10-25-2021 10-25-2021 Episodic Superficial injury; contusion (20 sources) Abrasion of face; Translations: [Abrasion of other part of head, initial encounter] Onset: 04-20-2023 Resolved: 12-11-2023 04-15-2023 Episodic Unclassified (1 source) Frequency of micturition Onset: 07-09-2018 Unclassified (3 sources) h/o wrist surgery 05-19-2022 Results Test Name Value Interpretation Reference Range Facility CT CHEST WO IVCONon 08-05-[address] CHEST WO IVCON * * *Final Report* * * DATE OF EXAM: Aug 05 2025 4:09PM [facility] 0541 - CT CHEST WO IVCON / PROCEDURE REASON: Neoplasm of lung * * * * Physician Interpretation * * * * EXAMINATION: CHEST CT WITHOUT CONTRAST CLINICAL HISTORY: Lung nodule follow-up Technique: Spiral CT acquisition of the chest from the thoracic inlet to the upper abdomen without contrast. MQ: [id number]_6 CT Radiation dose: Integrated Dose-length product (DLP) for this visit = 534 mGy*cm CT Dose Reduction Employed: Automated exposure control(AEC) and iterative recon Comparison: CT chest dated 07/30/2024 RESULT: Limitations: None. Lines, tubes, and devices: None. Lung parenchyma and airways: No consolidation. Stable 5 mm right lower lobe pulmonary nodule (5, 146). Few additional stable 2 mm nodular opacities in the right lower lobe (5, 191 and 192). No new or enlarging suspicious pulmonary nodule. The central airways are patent. Pleural space: No pleural effusion. No pleural thickening. Lower neck, lymph nodes, and mediastinum: The imaged thyroid gland is normal. No lymphadenopathy in the supraclavicular, axillary, mediastinal, or hilar regions. Heart, pericardium, and thoracic vessels: The thoracic aorta and main pulmonary artery are normal in caliber. The cardiac chambers are normal in size. Coronary artery atherosclerotic calcifications are noted, although the study is not optimized for coronary assessment. No pericardial effusion or thickening. Bones and soft tissues: No destructive bone lesion. Chest wall is unremarkable. Upper abdomen: Prior cholecystectomy. Hepatic steatosis. No additional abnormality in the imaged upper abdomen within the limits of noncontrast technique. Localizer images: No additional findings. IMPRESSION: 1. Stable less than 6 mm pulmonary nodules. 2. No new or enlarging pulmonary nodules. 3. No suspect intrathoracic lymphadenopathy. 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: PSCB Transcribe Date/Time: Aug 12 2025 2:59P Dictated by : KURT JOHN MD This examination was interpreted and the report reviewed and electronically signed by: KURT JOHN MD on Aug 12 2025 3:03PM EST [id number] Normal [facility] CBC panel Auto (Bld)on 08-04 Erythrocyte distribution width (RBC) [Ratio] 13.2 % Normal 11.5-15.0 [facility] Comment on above: Order Comment: Speci men Type: BLOOD SPECIMENOrdering Facility: [facility] Address: [address] [place] [address] Performed By: #### 5 8410-2 ####[facility] [id number] [place] [address] [place] Hematocrit (Bld) [Volume fraction] 44.5 % Normal 39.0-51.0 [facility] Comment on above: Order Comment: Speci men Type: BLOOD SPECIMENOrdering Facility: [facility] Address: [address] [place] [address] Performed By: #### 5 8410-2 ####[facility] [id number] [place] [address] [place] Hemoglobin (Bld) [Mass/Vol] 15.8 g/dL Normal 13.0-17.0 [facility] Comment on above: Order Comment: Speci men Type: BLOOD SPECIMENOrdering Facility: [facility] Address: [address] [place] [address] Performed By: #### 5 8410-2 ####[facility]ITALNCLIA [id number] [place] [address] [place] MCH (RBC) [Entitic mass] 33.0 pg Normal 26.0-34.0 [facility] Comment on above: Order Comment: Speci men Type: BLOOD SPECIMENOrdering Facility: [facility] Address: [address] [place] [address] Performed By: #### 5 8410-2 ####[facility]ITALNCLI [id number] [place] [address] [place] MCHC (RBC) [Mass/Vol] 35.5 g/dL Normal 30.5-36.0 [facility] Comment on above: Order Comment: Speci men Type: BLOOD SPECIMENOrdering Facility: [facility] Address: [address] [place] [address] Performed By: #### 5 8410-2 ####[facility] [id number] [place] [address] [place] MCV (RBC) [Entitic vol] 92.9 fL Normal 80.0-100.0 [facility] Comment on above: Order Comment: Speci men Type: BLOOD SPECIMENOrdering Facility: [facility] Address: [address] [place] [address] Performed By: #### 5 8410-2 ####[facility]OS[facility]ITALDEISIGAMALIEL [id number] [place] [address] [place] Nucleated RBC (Bld) [#/Vol] 10*3/uL Normal <0.01 [facility] Comment on above: Order Comment: Speci men Type: BLOOD SPECIMENOrdering Facility: [facility] Address: [address] [place] [address] Performed By: #### 5 8410-2 ####[facility]OSPITALDEISIKEVANA [id number] [place] [address] [place] Platelet mean volume (Bld) [Entitic vol] 9.3 fL Normal 9.0-12.7 [facility] Comment on above: Order Comment: Speci men Type: BLOOD SPECIMENOrdering Facility: [facility] Address: [address] [place] [address] Performed By: #### 5 8410-2 ####[facility]ITALNCLIA [id number] [place] [address] [place] Platelets (Bld) [#/Vol] 183 10*3/uL Normal 150-400 [facility] Comment on above: Order Comment: Speci men Type: BLOOD SPECIMENOrdering Facility: [facility] Address: [address] [place] [address] Performed By: #### 5 8410-2 ####[facility]ITALNCLIA [id number] [place] [address] [place] RBC (Bld) [#/Vol] 4.79 10*6/uL Normal 4.20-6.00 [facility] Comment on above: Order Comment: Speci men Type: BLOOD SPECIMENOrdering Facility: [facility] Address: [address] [place] [address] Performed By: #### 5 8410-2 ####[facility]ITALNCLIA [id number] [place] [address] [place] WBC (Bld) [#/Vol] 6.94 10*3/uL Normal 3.70-11.00 [facility] Comment on above: Order Comment: Speci men Type: BLOOD SPECIMENOrdering Facility: [facility] Address: [address] [place] [address] Performed By: #### 5 8410-2 ####[facility] CENTERLIA [id number] [place] [address] [place] Prot/Creat Uron 08-04-2025 Protein/Creatinine (U) [Mass ratio] 0.13 mg/mg Normal <0.15 [facility] Comment on above: Order Comment: Speci men Type: URINE SPECIMENOrdering Facility: [facility] Address: [address] [place] [address] Result Comment: Adul t Proteinuria Categories: <0.15 mg/mg is considered normal to mildly increased 0.15 - 0.50 mg/mg is considered moderately increased >0.50 mg/mg is considered severely increased KDIGO. (2013). KDIGO 2012 Clinical Practice Guideline for the Evaluation and Management of Chronic Kidney Disease. Official Journal of the International Society of Nephrology, 3(1), 1-150. Performed By: #### 2 890-2 ####[facility] LABCLIA [id number] [address] [address] [place] Protein/Creatinine (U) [Mass ratio]on 08-04-2025 Creatinine (U) [Mass/Vol] 78.6 mg/dL Normal 20.0-300.0 [facility] Comment on above: Order Comment: Speci men Type: URINE SPECIMENOrdering Facility: [facility] Address: [address] [place] [address] Performed By: #### 2 890-2 ####[facility] HOSPITALIA [id number] [place] [address] [place] Protein (U) [Mass/Vol] 10 mg/dL Normal 0-20 [facility] Comment on above: Order Comment: Speci men Type: URINE SPECIMENOrdering Facility: [facility] Address: [address] [place] [address] Performed By: #### 2 890-2 ####[facility] LABIA [id number] [place] [address] [place] Renal function 2000 panelon 08-04-2025 Albumin [Mass/Vol] 4.6 g/dL Normal 3.9-4.9 [facility] Comment on above: Order Comment: Speci men Type: BLOOD SPECIMENOrdering Facility: [facility] Address: [address] [place], [place] [address] Performed By: #### 2 4362-6 ####[facility]ENTERWDEISILIA [id number] [place] [address] [place] Anion gap [Moles/Vol] 12 mmol/L Normal 8-15 [facility] Comment on above: Order Comment: Speci men Type: BLOOD SPECIMENOrdering Facility: [facility] Address: [address] [place] [address] Performed By: #### 2 4362-6 ####[facility]ITALNCLIA [id number] [place] [address] [place] Calcium [Mass/Vol] 9.8 mg/dL Normal 8.5-10.2 [facility] Comment on above: Order Comment: Speci men Type: BLOOD SPECIMENOrdering Facility: [facility] Address: [address] [place] [address] Performed By: #### 2 4362-6 ####[facility] MILLTOWNCLIA [id number] [place] [address] [place] Chloride [Moles/Vol] 101 mmol/L Normal 98-107 [facility] Comment on above: Order Comment: Speci men Type: BLOOD SPECIMENOrdering Facility: [facility] Address: [address] [place] [address] Performed By: #### 2 4362-6 ####[facility] CENTERWVALIA [id number] [place] [address] [place] CO2 [Moles/Vol] 27 mmol/L Normal 22-30 [facility] Comment on above: Order Comment: Speci men Type: BLOOD SPECIMENOrdering Facility: [facility] Address: [address] [place] [address] Performed By: #### 2 4362-6 ####[facility]ENTERWVALIA [id number] [place] [address] [place] Creatinine [Mass/Vol] 0.98 mg/dL Normal 0.73-1.22 [facility] Comment on above: Order Comment: Speci men Type: BLOOD SPECIMENOrdering Facility: [facility] Address: [address] [place] [address] Performed By: #### 2 4362-6 ####[facility]ITALNCLIA [id number] [place] [address] [place] eGFRcr SerPlBld CKD-EPI 2020 89 mL/min/1.73m??? Normal >=60 [facility] Comment on above: Order Comment: Speci men Type: BLOOD SPECIMENOrdering Facility: [facility] Address: [address] [place] [address] Result Comment: Shara mated Glomerular Filtration Rate (eGFR) is calculated using the 2020 CKD-EPI creatinine equation. This equation utilizes serum creatinine, sex, and age as parameters. The creatinine assay has traceable calibration to isotope dilution-mass spectrometry. Refer to KDIGO guidelines for clinical interpretation. In patients with unstable renal function, e.g. those with acute kidney injury, the eGFR may not accurately reflect actual GFR. Performed By: #### 2 4362-6 ####[facility] [id number] [place] [address] [place] Glucose [Mass/Vol] 87 mg/dL Normal 74-99 [facility] Comment on above: Order Comment: Geovanny noland Type: BLOOD SPECIMENOrdering Facility: [facility] Address: [address] [place] [address] Result Comment: The [place] Diabetes Association (ADA) provides guidance for cutoff values for fasting glucose and random glucose. The ADA defines fasting as no caloric intake for at least 8 hours. Fasting plasma glucose results between 100 to 125 mg/dL indicate increased risk for diabetes (prediabetes). Fasting plasma glucose results greater than or equal to 126 mg/dL meet the criteria for diagnosis of diabetes. In the absence of unequivocal hyperglycemia, results should be confirmed by repeat testing. In a patient with classic symptoms of hyperglycemia or hyperglycemic crisis, random plasma glucose results greater than or equal to 200 mg/dL meet the criteria for diagnosis of diabetes. Reference: Standards of Medical Care in Diabetes 2016, [place] [employer] Association. Diabetes Care. 2016.39(Suppl 1). Performed By: #### 2 4362-6 ####[facility] [id number] [place] [address] [place] Phosphate [Mass/Vol] 3.1 mg/dL Normal 2.7-4.8 [facility] Comment on above: Order Comment: Geovanny noland Type: BLOOD SPECIMENOrdering Facility: [facility] Address: [address] [place] [id number] Performed By: #### 2 4362-6 ####[facility] [id number] [place] [address] [place] Potassium [Moles/Vol] 4.4 mmol/L Normal 3.7-5.1 [facility] Comment on above: Order Comment: Speci men Type: BLOOD SPECIMENOrdering Facility: [facility] Address: [address] [place] [address] Performed By: #### 2 4362-6 ####[facility] [id number] [place] [address] [place] Sodium [Moles/Vol] 140 mmol/L Normal 136-144 [facility] Comment on above: Order Comment: Speci men Type: BLOOD SPECIMENOrdering Facility: [facility] Address: [address] [place] [address] Performed By: #### 2 4362-6 ####[facility] [id number] [place] [address] [place] Urea nitrogen [Mass/Vol] 12 mg/dL Normal 9-24 [facility] Comment on above: Order Comment: Speci men Type: BLOOD SPECIMENOrdering Facility: [facility] Address: [address] [place] [address] Performed By: #### 2 4362-6 ####[facility]ENTERLI [id number] [place] [address] [place] Urinalysis complete panel (U )on 08-04-2025 Bacteria LM.HPF (Urine sed) [#/Area] Negative Normal Negative [facility] Comment on above: Order Comment: Speci men Type: URINE SPECIMENOrdering Facility: [facility] Address: [address] [place] [address] Performed By: #### 2 4356-8 ####[facility] LABCLIA [id number] [place] [address] [place] Bilirubin Ql (U) Negative Normal Negative [facility] Comment on above: Order Comment: Speci men Type: URINE SPECIMENOrdering Facility: [facility] Address: [address] [place] [address] Performed By: #### 2 4356-8 ####[facility] LABCLIA [id number] [address] [place] [address] [place] Clarity (Unsp spec) Clear Normal Clear [facility] Comment on above: Order Comment: Speci men Type: URINE SPECIMENOrdering Facility: [facility] Address: [address] [place] [address] Performed By: #### 2 4356-8 ####[facility] LABCLIA [id number] [address], [place] [address] [place] Color (U) Yellow Normal Yellow [facility] Comment on above: Order Comment: Speci men Type: URINE SPECIMENOrdering Facility: [facility] Address: [address] [place] [address] Performed By: #### 2 4356-8 ####[facility] LABCLIA [id number] [address], [facility]95 [place] Epithelial cells LM.HPF (Urine sed) [#/Area] None Seen Normal [facility] Comment on above: Order Comment: Speci men Type: URINE SPECIMENOrdering Facility: [facility] Address: [address] [place] [address] Performed By: #### 2 4356-8 ####[facility] LABCLIA [id number] [address], [facility]95 [place] Glucose Test strip (U) [Mass/Vol] Negative Normal Negative [facility] Comment on above: Order Comment: Speci men Type: URINE SPECIMENOrdering Facility: [facility] Address: [address] [place] [address] Performed By: #### 2 4356-8 ####[facility] LABCLIA [id number] [place] [id number] [place] Hemoglobin Ql (U) Negative Normal Negative [facility] Comment on above: Order Comment: Speci men Type: URINE SPECIMENOrdering Facility: [facility] Address: [address] [place] [address] Performed By: #### 2 4356-8 ####[facility] LABCLIA [id number] [facility] [place] [address] [place] Hyaline casts (Urine sed) [#/Area] 0 /[LPF] Normal 0 /LPF [facility] Comment on above: Order Comment: Speci men Type: URINE SPECIMENOrdering Facility: [facility] Address: [address] [place] [address] Performed By: #### 2 4356-8 ####[facility] LABCLIA [id number] [place] [address] [place] Ketones Ql (U) Negative Normal Negative [facility] Comment on above: Order Comment: Speci men Type: URINE SPECIMENOrdering Facility: [facility] Address: [address] [place] [address] Performed By: #### 2 4356-8 ####[facility] LABCLIA [id number] [place] [address] [place] Leukocyte esterase Test strip Ql (U) Negative Normal Negative [facility] Comment on above: Order Comment: Speci men Type: URINE SPECIMENOrdering Facility: [facility] Address: [address] [place] [address] Performed By: #### 2 4356-8 ####[facility] LABCLIA [id number] [place] [id number] [place] Nitrite Ql (U) Negative Normal Negative [facility] Comment on above: Order Comment: Speci men Type: URINE SPECIMENOrdering Facility: [facility] Address: [address] [place] [address] Performed By: #### 2 4356-8 ####[facility] LABCLIA [id number] [place] [address] [place] pH (U) 7.0 [pH] Normal 5.0-8.0 [facility] Comment on above: Order Comment: Speci men Type: URINE SPECIMENOrdering Facility: [facility] Address: [address] [place] [address] Performed By: #### 2 4356-8 ####[facility] LABIA [id number] [place] [address] [place] Protein (U) [Mass/Vol] Negative Normal Negative [facility] Comment on above: Order Comment: Speci men Type: URINE SPECIMENOrdering Facility: [facility] Address: [address] [place] [address] Performed By: #### 2 4356-8 ####[facility] LABW[facility] [id number] [place] [address] [place] RBC LM.HPF (Urine sed) [#/Area] 0-2 /HPF Normal 0-2 /HPF [facility] Comment on above: Order Comment: Speci men Type: URINE SPECIMENOrdering Facility: [facility] Address: [address] [place] [address] Performed By: #### 2 4356-8 ####[facility] LABIA [id number] [place] [address] [place] Specific gravity (U) [Rel density] 1.015 Normal 1.005-1.030 [facility] Comment on above: Order Comment: Speci men Type: URINE SPECIMENOrdering Facility: [facility] Address: [address] [place] [address] Performed By: #### 2 4356-8 ####[facility] LABIA [id number] [place] [address] [place] Urobilinogen Ql (U) 0.2 EU/dL Normal 0.2-1.0 EU/dL [facility] Comment on above: Order Comment: Speci men Type: URINE SPECIMENOrdering Facility: [facility] Address: [address] [place] [address] Performed By: #### 2 4356-8 ####[facility] [id number] [place] [address] [place] WBC LM.HPF (Urine sed) [#/Area] 0-5 /HPF Normal 0-5 /HPF [facility] Comment on above: Order Comment: Speci men Type: URINE SPECIMENOrdering Facility: [facility] Address: [address] [place] [address] Performed By: #### 2 4356-8 ####[facility] HOSPITALIA [id number] [place] [address] [place] CNCOon 07-22-2025 CNCO Letter Text Normal [facility] CNPNon 07-22-2025 CNPN Telephone (EMQ) -- VIC BALLESTEROS ([id number]) 1965 M Date Time Provider Department 07/22/25 SHERON MARK EMQ During your visit today, we recorded the following information about you: Angela Luong 07/22/2025 12:02 PM Signed July 22, 2025 11:56 AM APPEAL LETTER tirzepatide, weight loss (ZEPBOUND) 2.5 mg/0.5 mL solution Plan FAXED TO [facility] [phone] PENDING DETERMINATION Angela Administrative [employer] [facility] Met[facility] [place] Allergies As of Date: 07/22/2025 Noted Allergy Reaction PENICILLIN G 04/27/2005 4 - Hives SULFA (SULFONAMIDE ANTIBIOTICS) 04/27/2005 4 - Hives CELEBREX (CELECOXIB) 11/11/2009 2 - Rash LISINOPRIL 04/23/2024 5 - Intolerance Comments: Cough Date Reviewed: 07/02/2025 Reviewed by: Lizette Canales MA - Fully Assessed Reason for Visit: Insurance Authorization [[id number]] Cmt: APPEAL LETTER tirzepatide, weight loss (ZEPBOUND) 2.5 mg/0.5 mL solution Prescriptions as of 07/22/2025 - testosterone (ANDROGEL) 50 mg / 5 g (1%) Apply 1 packet to affected area every other day. Alternating with 25 mg. - tirzepatide, weight loss (ZEPBOUND) 2.5 mg/0.5 mL solution Inject 0.5 mL subcutaneously one time a week for 28 days. - aspirin, enteric coated (ECOTRIN LOW STRENGTH) 81 mg EC tablet Take 1 tablet by mouth once daily. - atorvastatin (LIPITOR) 10 mg tablet Take 1 tablet by mouth once daily. - losartan (COZAAR) 50 mg tablet Take 1 tablet by mouth once daily. - pantoprazole DR (PROTONIX) 40 mg tablet TAKE 1 TABLET BY MOUTH DAILY - testosterone (ANDROGEL) 25 mg/ 2.5g (1%) Apply 1 packet to affected area every other day for 180 days. Alernating witth 50 mg qod - diclofenac (VOLTAREN) 1 % topical gel APPLY 4 GRAMS TO THE LOWER EXTREMITY JOINT WITH A MAXIMUM OF 16 GRAMS PER DAY - lidocaine (LMX) 4 % cream Apply to affected area once daily as needed. - lidocaine HCl 2 % crea Apply to affected area once daily as needed. - amphetamine-dextroamphetam ine XR (ADDERALL XR) 10 mg capsule Take 10 mg by mouth once daily. - buPROPion (WELLBUTRIN) 75 mg tablet Take 75 mg by mouth two times a day. - budesonide-formoterol (SYMBICORT) 80-4.5 mcg/actuation inhaler Inhale 2 Puffs as instructed two times a day. - Tadalafil (CIALIS) 20 mg tablet TAKE 1 TABLET BY MOUTH 1-2 HOURS BEFORE SEXUAL INTRACOURSE NEEDED - albuterol HFA (VENTOLIN HFA) 90 mcg/actuation inhaler Inhale 2 Puffs as instructed every 4 hours as needed for wheezing/shortness of breath. - acetaminophen (TYLENOL EXTRA STRENGTH) 500 mg tablet Take 2 tablets by mouth every 8 hours as needed for pain. - traMADol (ULTRAM) 50 mg tablet - albuterol (PROVENTIL) 2.5 mg /3 mL (0.083 %) nebulizer solution Use 3 mL via nebulizer every 6 hours as needed for wheezing/shortness of breath. Use over 5-15minutes. - CPAP/BIPAP/OTHER autoCPAP 5-20 cmH2O DME [employer] - CPAP Initiate Auto PAP @ 5-20 cm of water with humidification. Mask (per patient preference) optional chin strap (if indicated) , filters, tubing, humidifier and lifetime supplies. Current machine is 7 years old and needs replaced. Insurance if refusing titration sleep study. - clonazePAM (KLONOPIN) 1 mg tablet TAKE 1/2 TABLET THREE TIMES A DAY NEEDED Problem List As Of Date 07/22/2025 Noted Resolved Sebaceous cyst [L72.3] 10/13/2006 04/15/2011 FOLLICULITIS////HAIR DISEASES NEC [L67.8, L73.8]10/13/2006 04/15/2011 Neoplasm of uncertain behavior of skin [D48.5] 10/13/2006 04/15/2011 SOLAR LENTIGENES///DYSCHROMIA OTHER [L81.9] 10/13/2006 04/15/2011 Benign neoplasm of skin of upper limb, includin*11/13/2006 04/15/2011 PAIN ABDOMEN( Left Lower Quadrant) [R10.32] 12/26/2008 04/15/2011 Hemorrhage of rectum and anus [K62.5] 12/26/2008 08/06/2015 ADJUSTMENT DISORDER WITH DEPRESSED MOOD [F43.21]12/26/2008 Mixed hyperlipidemia [E78.2] 01/13/2011 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] 01/13/2011 Unspecified constipation [K59.00] 04/17/2012 08/06/2015 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.9] 05/01/2013 03/20/2017 AMANDA (obstructive sleep apnea) [G47.33] 11/26/2014 Morbid obesity (HCC) [E66.01] 08/06/2015 Right foot drop [M21.371] 08/06/2015 Benign prostatic hyperplasia with lower urinary*01/18/2016 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 [facility] VIC BALLESTEROS ([id number]) 1965 M Date Time Provider Department 07/22/25 SHERON MARK ENDOMN During your visit today, we recorded the following information about you: Daria De La Garza 07/22/2025 9:05 AM Signed Dear Provider, Your patient's medication tirzepatide, weight loss (ZEPBOUND) 2.5 mg/0.5 mL solution was denied. Denial letters are sent directly to the patient and at times to the healthcare providers. If we receive a denial letter, it will be indexed for your review. If you want to appeal the decision. Please submit your request via staff message to the [facility] Appeals Pool ([phone]). You can find templates listed below to support your appeal in [employer] (Epic drop down, select patient care, select send letter). If it is an urgent request, you can email the [facility] auth Team at [email or web address]. Please make sure the documents below are completed in order to process your request. Thank You, [facility] Auth Appeals Team Ac [facility]INGH Appeal letter Ac SINGH Letter of Medical Necessity Ac [facility]ING[facility] [place] Allergies As of Date: 07/22/2025 Noted Allergy Reaction PENICILLIN G 04/27/2005 4 - Hives SULFA (SULFONAMIDE ANTIBIOTICS) 04/27/2005 4 - Hives CELEBREX (CELECOXIB) 11/11/2009 2 - Rash LISINOPRIL 04/23/2024 5 - Intolerance Comments: Cough Date Reviewed: 07/02/2025 Reviewed by: Lizette Canales MA - Fully Assessed Reason for Visit: Medication Preauthorization [914] Cmt: tirzepatide, weight loss (ZEPBOUND) 2.5 mg/0.5 mL solution- Denied Prescriptions as of 07/22/2025 - testosterone (ANDROGEL) 50 mg / 5 g (1%) Apply 1 packet to affected area every other day. Alternating with 25 mg. - tirzepatide, weight loss (ZEPBOUND) 2.5 mg/0.5 mL solution Inject 0.5 mL subcutaneously one time a week for 28 days. - aspirin, enteric coated (ECOTRIN LOW STRENGTH) 81 mg EC tablet Take 1 tablet by mouth once daily. - atorvastatin (LIPITOR) 10 mg tablet Take 1 tablet by mouth once daily. - losartan (COZAAR) 50 mg tablet Take 1 tablet by mouth once daily. - pantoprazole DR (PROTONIX) 40 mg tablet TAKE 1 TABLET BY MOUTH DAILY - testosterone (ANDROGEL) 25 mg/ 2.5g (1%) Apply 1 packet to affected area every other day for 180 days. Alernating witth 50 mg qod - diclofenac (VOLTAREN) 1 % topical gel APPLY 4 GRAMS TO THE LOWER EXTREMITY JOINT WITH A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 related complaints. HISTORY REVIEWED (electronic chart updated): PAST MEDICAL HISTORY Diagnosis Date ACNE NEC 10/13/2006 Anxiety 01/16/2023 Coronary artery calcification 06/17/2025 Depression Dyslipidemia Essential hypertension 01/16/2023 GERD (gastroesophageal reflux disease) 01/16/2023 History of traumatic brain injury Hypogonadism male 10/30/1988 Left knee pain Obesity AMANDA (obstructive sleep apnea) 10/30/2005 cpap PMH - PAST MEDICAL HISTORY OF L 5 nerve injury workman comp PMH - PAST MEDICAL HISTORY OF 10/30/1988 Industrial accident fall Stroke (HCC) Thrombosed external hemorrhoid 10/26/2011 Unspecified site of spinal cord injury without evidence of spinal bone injury 01/25/2013 PAST SURGICAL HISTORY Procedure Laterality Date ABDOMINAL SURGERY HX BX OF BREAST; INCISIONAL 06/23/2025 Pigmented skin lesion of uncertain behavior of torso COLONOSCOPY FLX DX W/COLLJ SPEC WHEN PFRMD 04/17/2012 repeat 10 years COLONOSCOPY SCREENING 06/09/2022 10 year f/u colonoscopy FRACTURE SURGERY JOINT REPLACEMENT HX LAPAROSCOPY SURG CHOLECYSTECTOMY 08/01/2017 Cholecystectomy, lap PAST SURGICAL HISTORY OF Right 1988 wrist fracture after work accident, states still has hardware PAST SURGICAL HISTORY OF 1988 exploratory after accident, opened from pubic bone to breastbone REPAIR NASAL SEPTUM DEFECT RPR 1ST INCAL/VNT HERNIA INCARCERATED 10/28/2019 TOTAL HIP REPLACEMENT Left 2021 VASECTOMY UNI/BI SPX W/POSTOP SEMEN EXAMS Bilateral 1999 FAMILY HISTORY Problem Relation Age of Onset Heart Mother Hypertension Mother Stroke Mother Cancer Father lung, throat other (lymphoma) Sister other (car accident) Sister None Brother None Brother SOCIAL HISTORY[1] Current Outpatient Medications Medication Sig aspirin, enteric coated (ECOTRIN LOW STRENGTH) 81 mg EC tablet Take 1 tablet by mouth once daily. atorvastatin (LIPITOR) 10 mg tablet Take 1 tablet by mouth once daily. testosterone (ANDROGEL) 50 mg / 5 g (1%) Apply 1 packet to affected area every other day. Alternating with 25 mg. losartan (COZAAR) 50 mg tablet Take 1 tablet by mouth once daily. pantoprazole DR (PROTONIX) 40 mg tablet TAKE 1 TABLET BY MOUTH DAILY testosterone (ANDROGEL) 25 mg/ 2.5g (1%) Apply 1 packet to affected area every other day for 180 days. Alernating witth 50 mg qod diclofenac (VOLTAREN) 1 % topical gel APPLY 4 GRAMS TO THE LOWER EXTREMITY JOINT WITH A MAXIMUM OF 16 GRAMS PER DAY lidocaine (LMX) 4 % cream Apply to affected area once daily as needed. lidocaine HCl 2 % crea Apply to affected area once daily as needed. amphetamine-dextroamphetam ine XR (ADDERALL XR) 10 mg capsule Take 10 mg by mouth once daily. buPROPion (WELLBUTRIN) 75 mg tablet Take 75 mg by mouth two times a day. budesonide-formoterol (SYMBICORT) 80-4.5 mcg/actuation inhaler Inhale 2 Puffs as instructed two times a day. Tadalafil (CIALIS) 20 mg tablet TAKE 1 TABLET BY MOUTH 1-2 HOURS BEFORE SEXUAL INTRACOURSE NEEDED albuterol HFA (VENTOLIN HFA) 90 mcg/actuation inhaler Inhale 2 Puffs as instructed every 4 hours as needed for wheezing/shortness of breath. acetaminophen (TYLENOL EXTRA STRENGTH) 500 mg tablet Take 2 tablets by mouth every 8 hours as needed for pain. traMADol (ULTRAM) 50 mg tablet albuterol (PROVENTIL) 2.5 mg /3 mL (0.083 %) nebulizer solution Use 3 mL via nebulizer every 6 hours as neede (more content not included)... Normal [facility] Comprehensive metabolic 2000 panelon 07-02-2025 Albumin [Mass/Vol] 4.8 g/dL Normal 3.9-4.9 [facility] Comment on above: Order Comment: Speci men Type: BLOOD SPECIMENOrdering Facility: [facility] Address: [address] [place] [address] Performed By: #### 3 016-3, 03468-9, 02908-8, 04618-7 ####[facility] LABCLIA [id number] [place] [address] [place] ALP [Catalytic activity/Vol] 72 U/L Normal 38-113 [facility] Comment on above: Order Comment: Speci men Type: BLOOD SPECIMENOrdering Facility: [facility] Address: [address] [place] [address] Performed By: #### 3 016-3, 40254-6, 43103-1, 62984-9 ####[facility] LABCLIA [id number] [place] [id number] [place] ALT [Catalytic activity/Vol] 28 U/L Normal 10-54 [facility] Comment on above: Order Comment: Speci men Type: BLOOD SPECIMENOrdering Facility: [facility] Address: [address] [place] [address] Performed By: #### 3 016-3, 84463-3, 89856-2, 92197-3 ####[facility] LABCLIA [id number] [place] [id number] [place] Anion gap [Moles/Vol] 16 mmol/L High 8-15 [facility] Comment on above: Order Comment: Speci men Type: BLOOD SPECIMENOrdering Facility: [facility] Address: [address] [place] [address] Performed By: #### 3 016-3, 86048-8, 97098-4, 13684-3 ####[facility] LABCLIA [id number] [place] [address] [place] AST [Catalytic activity/Vol] 28 U/L Normal 14-40 [facility] Comment on above: Order Comment: Speci men Type: BLOOD SPECIMENOrdering Facility: [facility] Address: [address] [place] [address] Performed By: #### 3 016-3, 91247-2, 73689-9, 93721-3 ####[facility] LABCLIA [id number] [place] [address] [place] Bilirubin [Mass/Vol] 0.7 mg/dL Normal 0.2-1.3 [facility] Comment on above: Order Comment: Speci men Type: BLOOD SPECIMENOrdering Facility: [facility] Address: [address] [place] [address] Performed By: #### 3 016-3, 79888-9, 38833-7, 89095-0 ####[facility] LABCLIA [id number] [place] [id number] [place] Calcium [Mass/Vol] 9.4 mg/dL Normal 8.5-10.2 [facility] Comment on above: Order Comment: Speci men Type: BLOOD SPECIMENOrdering Facility: [facility] Address: [address] [place] [address] Performed By: #### 3 016-3, 49529-6, 60287-6, 11615-8 ####[facility] LABCLIA [id number] [place] [id number] [place] Chloride [Moles/Vol] 103 mmol/L Normal 98-107 [facility] Comment on above: Order Comment: Speci men Type: BLOOD SPECIMENOrdering Facility: [facility] Address: [address] [place] [address] Performed By: #### 3 016-3, 17880-9, 23255-9, 75330-3 ####[facility] LABIA [id number] [place] [id number] [place] CO2 [Moles/Vol] 21 mmol/L Low 22-30 [facility] Comment on above: Order Comment: Speci men Type: BLOOD SPECIMENOrdering Facility: [facility] Address: [address] [place] [address] Performed By: #### 3 016-3, 46616-0, 99721-9, 21446-6 ####[facility] [id number] [place] [address] [place] Creatinine [Mass/Vol] 0.91 mg/dL Normal 0.73-1.22 [facility] Comment on above: Order Comment: Speci men Type: BLOOD SPECIMENOrdering Facility: [facility] Address: [address] [place] [address] Performed By: #### 3 016-3, 45537-1, 71187-1, 11204-3 ####[facility] LABIA [id number] [place] [id number] [place] eGFRcr SerPlBld CKD-EPI 2020 97 mL/min/1.73m??? Normal >=60 [facility] Comment on above: Order Comment: Speci men Type: BLOOD SPECIMENOrdering Facility: [facility] Address: [address] [place] [address] Result Comment: Shara mated Glomerular Filtration Rate (eGFR) is calculated using the 2020 CKD-EPI creatinine equation. This equation utilizes serum creatinine, sex, and age as parameters. The creatinine assay has traceable calibration to isotope dilution-mass spectrometry. Refer to KDIGO guidelines for clinical interpretation. In patients with unstable renal function, e.g. those with acute kidney injury, the eGFR may not accurately reflect actual GFR. Performed By: #### 3 016-3, 23671-4, 32369-7, 75929-4 ####[facility] LABCLIA [id number] [address] [address] [place] Glucose [Mass/Vol] 95 mg/dL Normal 74-99 [facility] Comment on above: Order Comment: Speci ludin Type: BLOOD SPECIMENOrdering Facility: [facility] Address: [address] [place] [address] Result Comment: The [place] Diabetes Association (ADA) provides guidance for cutoff values for fasting glucose and random glucose. The ADA defines fasting as no caloric intake for at least 8 hours. Fasting plasma glucose results between 100 to 125 mg/dL indicate increased risk for diabetes (prediabetes). Fasting plasma glucose results greater than or equal to 126 mg/dL meet the criteria for diagnosis of diabetes. In the absence of unequivocal hyperglycemia, results should be confirmed by repeat testing. In a patient with classic symptoms of hyperglycemia or hyperglycemic crisis, random plasma glucose results greater than or equal to 200 mg/dL meet the criteria for diagnosis of diabetes. Reference: Standards of Medical Care in Diabetes 2016, [place] Diabetes Association. Diabetes Care. 2016.39(Suppl 1). Performed By: #### 3 016-3, 86277-2, , 82971-1 ####[facility] LABCLIA [id number] [place] [id number] [place] Potassium [Moles/Vol] 4.6 mmol/L Normal 3.7-5.1 [facility] Comment on above: Order Comment: Geovanny noland Type: BLOOD SPECIMENOrdering Facility: [facility] Address: [address] [place] [address] Performed By: #### 3 016-3, 51129-1, 10628-5, 10085-9 ####[facility] LABCLIA [id number] [address] [address] [place] Protein [Mass/Vol] 7.5 g/dL Normal 6.3-8.0 [facility] Comment on above: Order Comment: Speci men Type: BLOOD SPECIMENOrdering Facility: [facility] Address: [address] [place] [address] Performed By: #### 3 016-3, 42518-5, 54824-0, 96708-4 ####[facility] LABCLIA [id number] [place] [id number] [place] Sodium [Moles/Vol] 140 mmol/L Normal 136-144 [facility] Comment on above: Order Comment: Speci men Type: BLOOD SPECIMENOrdering Facility: [facility] Address: [address] [place] [address] Performed By: #### 3 016-3, 41422-3, 76864-3, 30425-9 ####[facility] LABIA [id number] [place] [address] [place] Urea nitrogen [Mass/Vol] 12 mg/dL Normal 9-24 [facility] Comment on above: Order Comment: Speci men Type: BLOOD SPECIMENOrdering Facility: [facility] Address: [address] [place] [address] Performed By: #### 3 016-3, 19008-6, 19493-6, 40628-3 ####[facility] LABIA [id number] [place] [id number] [place] HbA1c (Bld)on 07-02-2025 Average glucose Estimated from glycated hemoglobin (Bld) [Mass/Vol] 88 mg/dL Normal [facility] Comment on above: Order Comment: Speci men Type: BLOOD SPECIMENOrdering Facility: [facility] Address: [address] [place] [address] Result Comment: eAG: (Estimated average glucose) is a calculated value from HgbA1c and is auto claim representative of the average blood glucose level in the last 2-3 month period. Performed By: #### 5 5454-3 ####[facility] LABCLIA [id number] [place] [address] [place] HbA1c (Bld) [Mass fraction] 4.7 % Normal 4.3-5.6 [facility] Comment on above: Order Comment: Speci men Type: BLOOD SPECIMENOrdering Facility: [facility] Address: [address] [place] [address] Result Comment: [place] Diabetes Association guidelines indicate that patients with HgbA1c in the range 5.7-6.4% are at increased risk for development of diabetes, and intervention by lifestyle modification may be beneficial. HgbA1c greater or equal to 6.5% is considered diagnostic of diabetes. Performed By: #### 5 5454-3 ####[facility] LABCLIA [id number] [place] [address] [place] Lipid 1996 panelon 5 Cholesterol [Mass/Vol] 152 mg/dL Normal <200 [facility] Comment on above: Order Comment: Speci men Type: BLOOD SPECIMENOrdering Facility: [facility] Address: [address] [place] [address] Result Comment: <200 mg/dL, Desirable 200-239 mg/dL, Borderline high >239 mg/dL, High Performed By: #### 3 016-3, 61323-9, 30616-6, 04638-1 ####[facility] LABCLIA [id number] [address] STATES OF [facility] Cholesterol in HDL [Mass/Vol] 36 mg/dL Low >39 [facility] Comment on above: Order Comment: Speci men Type: BLOOD SPECIMENOrdering Facility: [facility] Address: [address] [place] [address] Result Comment: 40-5 9 mg/dL, Acceptable >59 mg/dL, High: Negative risk factor for coronary heart disease <40 mg/dL, Low: Positive risk factor for coronary heart disease Performed By: #### 3 016-3, 79303-9, 59730-2, 98374-0 ####[facility] LABCLIA [id number] [address] [address] [place] Cholesterol in LDL [Mass/Vol] 85 mg/dL Normal <100 [facility] Comment on above: Order Comment: Speci men Type: BLOOD SPECIMENOrdering Facility: [facility] Address: [address] [place] [address] Result Comment: <100 mg/dL, Optimal 100-129 mg/dL, Near optimal/above optimal 130-159 mg/dL, Borderline high 160-189 mg/dL, High >189 mg/dL, Very high Secondary prevention optimal LDL Cholesterol levels are recommended to be <70 mg/dL LDL cholesterol is calculated using the [place]-NIH equation. Performed By: #### 3 016-3, 13049-3, , ####[facility] LABIA [id number] [address] [place] Cholesterol in LDL/Cholesterol in HDL [Mass ratio] 2.36 {ratio} Normal <2.54 [facility] Comment on above: Order Comment: Speci men Type: BLOOD SPECIMENOrdering Facility: [facility] Address: [address] [place] [address] Result Comment: Lara amaro: 1. National Cholesterol Education Program ATP III Guideline At-A-Glance Quick Desk Reference: National Heart, Lung, and Blood [place]. National Institutes of Health. 2001: NIH Publication No. 01-3305. 2. An International Atherosclerosis Society position paper: global recommendations for the management of dyslipidemia: executive summary, Atherosclerosis. 2014: 232(2):410-413. Performed By: #### 3 016-3, 80597-4, , ####[facility] LABIA [id number] [place] [id number] [place] Cholesterol in VLDL [Mass/Vol] 28 mg/dL Normal <30 [facility] Comment on above: Order Comment: Speci men Type: BLOOD SPECIMENOrdering Facility: [facility] Address: [address] [place] [address] Performed By: #### 3 016-3, 80179-8, 31496-4, 71947-3 ####[facility] LABCLIA [id number] [address] [address] [place] Cholesterol non HDL [Mass/Vol] 116 mg/dL Normal <130 [facility] Comment on above: Order Comment: Speci men Type: BLOOD SPECIMENOrdering Facility: [facility] Address: [address] [place] [address] Result Comment: <130 mg/dL, Optimal 130-159 mg/dL, Near optimal/above optimal 160-189 mg/dL, Borderline high 190-219 mg/dL, High >219 mg/dL, Very high Secondary prevention optimal non HDL Cholesterol levels are recommended to be <100 mg/dL Performed By: #### 3 016-3, 49230-9, 85616-3, 12076-6 ####[facility] LABCLIA [id number] [place] [address] [place] Cholesterol.total/Ch olesterol in HDL [Mass ratio] 4.22 {ratio} Normal <5.10 [facility] Comment on above: Order Comment: Speci men Type: BLOOD SPECIMENOrdering Facility: [facility] Address: [address] [place] [address] Performed By: #### 3 016-3, 23890-7, 93547-2, 93818-6 ####[facility] LABCLIA [id number] [address] [address] [place] FASTING TIME 12 hrs Normal [facility] Comment on above: Order Comment: Speci men Type: BLOOD SPECIMENOrdering Facility: [facility] Address: [address] [place] [address] Performed By: #### 3 016-3, 33270-3, 74528-5, 47304-6 ####[facility] LABCLIA [id number] [place] [id number] [place] Triglyceride [Mass/Vol] 181 mg/dL High <150 [facility] Comment on above: Order Comment: Speci men Type: BLOOD SPECIMENOrdering Facility: [facility] Address: [address] [place] [address] Result Comment: <150 mg/dL, Normal 150-199 mg/dL, Borderline high 200-499 mg/dL, High >499 mg/dL, Very high Performed By: #### 3 016-3, 97989-8, 02013-5, 35664-2 ####[facility] LABCLIA [id number] [place] [address] [place] PSA/PROSTATE SPECIFIC ANTIGE N SCREENINGon 07-02-2025 Prostate specific Ag [Mass/Vol] 0.40 ng/mL Normal <2.60 [facility] Comment on above: Order Comment: Speci men Type: BLOOD SPECIMENOrdering Facility: [facility] Address: [address] [place] [address] Result Comment: Tota l PSA test methodology used is the Electrochemiluminescence Immunoassay by Arjun Minefold. Total PSA values by differing methodologies cannot be interchanged. Performed By: #### P SAS1 ####[facility] LABCLIA [id number] [place] [id number] [place] THYROID STIMULATING HORMONEo n 07-02-2025 TSH Qn 2.490 m[IU]/L [facility] TSH Qnon 07-02-2025 Interpretation and review of laboratory results Normal [facility] TSH SerPl-aCncon 07-02-2025 TSH Qn 2.490 m[IU]/L Normal 0.270-4.200 [facility] Comment on above: Order Comment: Speci men Type: BLOOD SPECIMENOrdering Facility: [facility] Address: [address] [place] [address] Performed By: #### 3 016-3, 00147-7, 44469-6, 26543-5 ####[facility] LABCLIA [id number] [place] [id number] [place] Testost SerPl-mCncon 025 Testosterone [Mass/Vol] 213 ng/dL Normal 193-824 [facility] Comment on above: Order Comment: Speci men Type: BLOOD SPECIMENOrdering Facility: [facility] Address: [address] [place] [address] Result Comment: A te stosterone level in the 193-320 ng/dL range with associated clinical symptoms is considered low and may indicate hypogonadism (from [facility] 2010 [id number]:123-135). Results >320 ng/dL are considered normal. Performed By: #### 2 986-8 ####[facility] LABCLIA [id number] [address] CNNURSEon 07-01-2025 [facility] Nurse Visit (GENSWS) -- VIC BALLESTEROS ([id number]) 1965 M Date Time Provider Department 07/01/25 9:15 AM NURSE S [facility] GENSWS During your visit today, we recorded the following information about you: Vivek Soto RN 07/01/2025 9:50 AM Signed The back (site) was assessed and sutures were removed as ordered. Dressing was applied. Patient instructed on wound care and verbalized understanding. Vivek Soto RN Allergies As of Date: 07/01/2025 Noted Allergy Reaction PENICILLIN G 04/27/2005 4 - Hives SULFA (SULFONAMIDE ANTIBIOTICS) 04/27/2005 4 - Hives CELEBREX (CELECOXIB) 11/11/2009 2 - Rash LISINOPRIL 04/23/2024 5 - Intolerance Comments: Cough Date Reviewed: 06/23/2025 Reviewed by: Vivek Soto RN - Fully Assessed Primary Visit Diagnosis:Visit for suture removal [Z48.02] Prescriptions as of 07/02/2025 - tirzepatide, weight loss (ZEPBOUND) 2.5 mg/0.5 mL solution Inject 0.5 mL subcutaneously one time a week for 28 days. - aspirin, enteric coated (ECOTRIN LOW STRENGTH) 81 mg EC tablet Take 1 tablet by mouth once daily. - atorvastatin (LIPITOR) 10 mg tablet Take 1 tablet by mouth once daily. - testosterone (ANDROGEL) 50 mg / 5 g (1%) Apply 1 packet to affected area every other day. Alternating with 25 mg. - losartan (COZAAR) 50 mg tablet Take 1 tablet by mouth once daily. - pantoprazole DR (PROTONIX) 40 mg tablet TAKE 1 TABLET BY MOUTH DAILY - testosterone (ANDROGEL) 25 mg/ 2.5g (1%) Apply 1 packet to affected area every other day for 180 days. Alernating witth 50 mg qod - diclofenac (VOLTAREN) 1 % topical gel APPLY 4 GRAMS TO THE LOWER EXTREMITY JOINT WITH A MAXIMUM OF 16 GRAMS PER DAY - lidocaine (LMX) 4 % cream Apply to affected area once daily as needed. - lidocaine HCl 2 % crea Apply to affected area once daily as needed. - amphetamine-dextroamphetam ine XR (ADDERALL XR) 10 mg capsule Take 10 mg by mouth once daily. - buPROPion (WELLBUTRIN) 75 mg tablet Take 75 mg by mouth two times a day. - budesonide-formoterol (SYMBICORT) 80-4.5 mcg/actuation inhaler Inhale 2 Puffs as instructed two times a day. - Tadalafil (CIALIS) 20 mg tablet TAKE 1 TABLET BY MOUTH 1-2 HOURS BEFORE SEXUAL INTRACOURSE NEEDED - albuterol HFA (VENTOLIN HFA) 90 mcg/actuation inhaler Inhale 2 Puffs as instructed every 4 hours as needed for wheezing/shortness of breath. - acetaminophen (TYLENOL EXTRA STRENGTH) 500 mg tablet Take 2 tablets by mouth every 8 hours as needed for pain. - traMADol (ULTRAM) 50 mg tablet - albuterol (PROVENTIL) 2.5 mg /3 mL (0.083 %) nebulizer solution Use 3 mL via nebulizer every 6 hours as needed for wheezing/shortness of breath. Use over 5-15minutes. - CPAP/BIPAP/OTHER autoCPAP 5-20 cmH2O DME [facility] - CPAP Initiate Auto PAP @ 5-20 cm of water with humidification. Mask (per patient preference) optional chin strap (if indicated) , filters, tubing, humidifier and lifetime supplies. Current machine is 7 years old and needs replaced. Insurance if refusing titration sleep study. - clonazePAM (KLONOPIN) 1 mg tablet TAKE 1/2 TABLET THREE TIMES A DAY NEEDED Problem List As Of Date 07/01/2025 Noted Resolved Sebaceous cyst [L72.3] 10/13/2006 04/15/2011 FOLLICULITIS////HAIR DISEASES NEC [L67.8, L73.8]10/13/2006 04/15/2011 Neoplasm of uncertain behavior of skin [D48.5] 10/13/2006 04/15/2011 SOLAR LENTIGENES///DYSCHROMIA OTHER [L81.9] 10/13/2006 04/15/2011 Benign neoplasm of skin of upper limb, includin*11/13/2006 04/15/2011 PAIN ABDOMEN( Left Lower Quadrant) [R10.32] 12/26/2008 04/15/2011 Hemorrhage of rectum and anus [K62.5] 12/26/2008 08/06/2015 ADJUSTMENT DISORDER WITH DEPRESSED MOOD [F43.21]12/26/2008 Mixed hyperlipidemia [E78.2] 01/13/2011 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] 01/13/2011 Unspecified constipation [K59.00] 04/17/2012 08/06/2015 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.9] 05/01/2013 03/20/2017 AMANDA (obstructive sleep apnea) [G47.33] 11/26/2014 Morbid obesity (HCC) [E66.01] 08/06/2015 Right foot drop [M21.371] 08/06/2015 Benign prostatic hyperplasia with lower urinary*01/18/2016 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] 07/20/2016 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*07/29/2016 DDD (degenerative disc disease), lumbar [M51.36*09/14/2016 RUQ pain [R10.11] 07/31/2017 08/23/2017 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 Normal [facility] CNOVon 06-23-2025 CNOV Office Visit (GENSWS ) -- VIC BALLESTEROS ([id number]) 1965 M Date Time Provider Department 06/23/25 9:30 AM NATALI BUTLER During your visit today, we recorded the following information about you: Natali Butler MD 06/23/2025 9:41 AM Signed Patient presents for removal of additional skin lesion. Had previous skin biopsies April 2025 - pathology reveals intradermal nevi. PROCEDURE NOTE: Description of procedure: After informed consent was obtained, patient was brought to the procedure room. Appropriate time out protocol was followed. Patient was placed in the prone position. The site of the lesion was then cleansed with a sterile surgical skin preparation. Appropriate sterile surgical drapes were placed. The skin and subcutaneous tissues at the site were then infiltrated with local anesthetic. A skin incision was made at the site in an elliptical fashion to entirely incorporate the lesion with a 15 blade scalpel. The incision was carried down to the subcutaneous tissues. Dissection was done to separate the skin lesion from the surrounding subcutaneous tissues. The lesion was excised sharply down to the subcutaneous tissues. The lesion was 0.8 cm in size. The tissue was then removed and placed in formalin to be forwarded to pathology for analysis. Hemostasis was controlled by pressure. The skin edges were then reapproximated with interrupted 3-0 nylon suture in a simple fashion. Sterile dressing was applied. Patient tolerated procedure well. PLAN: Wound care instructions given by clinic staff. Patient to follow up for nursing visit for removal of sutures. Office will call with results of pathology. Patient to return to clinic if any signs/symptoms of infection/etc. Patient acknowledges the above. Vivek Soto RN 06/23/2025 9:33 AM Signed UNIVERSAL PROTOCOL / SAFETY CHECKLIST Procedure to be Performed: Excision of skin lesion of back Sign In: A Moment of CARE was completed. Appropriate PPE (Personal Protective Equipment) worn by all providers involved with the procedure. Special equipment not required. Patient/Surrogate Stated/Verified: Patient name, Date of , Relevant allergies, and The intended procedure Time Out: Relevant labs, photos, and/or imaging studies have been reviewed. Intended patient and procedure match the source document(s) (e.g. consent, HANDP, associated studies [imaging, pathology]) match the intended patient and procedure. Consent obtained and matches the intended procedure. Yes. Correct side/site has been marked and visible. Medications required for this procedure are verified. Fire risk assessed and is not applicable. Implants: are not applicable. Sign Out: Specimens are all correctly labeled and sent. All instruments, equipment, possible retained foreign bodies are accounted for. Yes. The post-procedure plan of care has been communicated to the patient or surrogate. Vivek Soto RN 06/23/2025 9:35 AM Signed The following instructions are important for you related to your office visit today with the [facility] General Surgeons. Instructions After SKIN EXCISION-SUTURES You can remove the dressing in two days. If the dressing becomes soaked or had significant drainage, the dressing should be changed. If there is minor bleeding from this skin edge, you should hold pressure on the incision until the bleeding stops. If there is continued bleeding, you should contact our office immediately. You do not need to leave a dressing on the wound after two days. If the wound shows signs of redness, inflammation, or purulent drainage, you should contact our office immediately. You should keep the wound dry for the first two days. After that time, you may wash the wound with gentle soap and water. The wound should not be immersed in a pool, bathtub, or even hot tub. We prefer to check the incision and remove the stitches in our office when ready. Please make an appointment to return to our office in 7 days. Please do not remove the stitches yourself without approval from our office. If you note any additional difficulties, questions, or concerns, you should contact our office immediately @ [phone] and ask to be transferred to the General Surgery department. Referring Provider: SELF [200] Allergies As of Date: 06/23/2025 Noted Allergy Reaction PENICILLIN G 04/27/2005 4 - Hives SULFA (SULFONAMIDE ANTIBIOTICS) 04/27/2005 4 - Hives CELEBREX (CELECOXIB) 11/11/2009 2 - Rash LISINOPRIL 04/23/2024 5 - Intolerance Comments: Cough Date Reviewed: 06/23/2025 Reviewed by: Vivek Soto RN - Fully Assessed Reason for Visit: Consult [173] Cmt: Excision skin lesion Primary Visit Diagnosis:Pigmented skin lesion of uncertain behavior of torso [L81.9] Order(s):SURGICAL PATHOLOGY [[id number]] Order #: (more content not included)... Normal [facility] Pathology biopsy report Montrell (Tiss)on 06-23-2025 AP DISCLAIMER Normal [facility] Comment on above: Order Comment: Speci men Type: TISSUE SPECIMENOrdering Facility: [facility] Address: [address] [place] [address] Result Comment: Keyana archuleta Developed Test (LDT) Disclaimer: Performance characteristics of immunohistochemical, immunofluorescent, and chromogenic in-situ hybridization tests have been determined by the performing laboratory within the [facility] Department of Pathology and Laboratory Medicine ([facility], [facility], [facility], [facility], [facility], [facility], or [facility]) in a manner consistent with CLIA requirements. One or more of these tests may not have been cleared or approved by the FDA. The [facility] Department of Pathology and Laboratory Medicine is regulated under CLIA as qualified to perform high-complexity testing. These tests are used for clinical purposes. These should not be regarded as investigational or for research. Positive and negative controls stain appropriately. Performed By: #### 6 6121-5 ####[facility] LABCLIA [id number] [address] [address] [place] CASE REPORT Normal [facility] Comment on above: Order Comment: Martinei men Type: TISSUE SPECIMENOrdering Facility: [facility] Address: [address] [place] [address] Result Comment: Surg [facility] Pathology Report Case: [id number] Authorizing Provider: Natali Butler MD Collected: 06/23/2025 09:38 AM Ordering Location: General Surgery Received: 06/23/2025 04:09 PM Pathologist: Sheryl Rodriges MD Specimen: Skin Lesion/Soft Tissue Ulcer (Specify site in comment), back Performed By: #### 6 6121-5 ####[facility] LABCLIA [id number] [place] [id number] [place] CLINICAL HISTORY Normal [facility] Comment on above: Order Comment: Martinei men Type: TISSUE SPECIMENOrdering Facility: [facility] Address: [address] [place] [address] Result Comment: skin lesion back Comment: back Performed By: #### 6 6121-5 ####[facility] LABCLIA [id number] [address] [address] [place] FINAL DIAGNOSIS Normal [facility] Comment on above: Order Comment: Speci men Type: TISSUE SPECIMENOrdering Facility: [facility] Address: [address] [place] [address] Result Comment: [place] back, punch biopsy: - Intradermal nevus. CR/SM 06/25/25 at 1542 EDT Performed By: #### 6 6121-5 ####[facility] LABCLIA [id number] [address] [address] [place] FINAL PERFORMING LAB Normal [facility] Comment on above: Order Comment: Speci men Type: TISSUE SPECIMENOrdering Facility: [facility] Address: [address] [place] [address] Result Comment: Diag nostic interpretation performed at: [facility], [address] [place] [address], [facility] [place] [address] CLIA# [id number] Casualty Underwriter: Julio Cesar Sumner MD Performed By: #### 6 6121-5 ####[facility] [id number] [address] GROSS DESCRIPTION Normal [facility] Comment on above: Order Comment: Speci men Type: TISSUE SPECIMENOrdering Facility: [facility] Address: [address] [place] [address] Result Comment: A. S kin Lesion/Soft Tissue Ulcer (Specify site in comment) Received in formalin is an elliptical shaped segment of skin and subcutaneous tissue measuring 0.8 x 0.3 x 0.6 cm. The skin surface demonstrates an irregular chopra-pink, elevated and rough area measuring 0.3 x 0.3 cm, and extends to both margins. The deep and lateral margins are inked black. The specimen is bisected. Totally submitted in one cassette. Gross examination performed at [facility], [address] [place] [address]. [place] [address] JT 06/24/2025 12:14 AM Performed By: #### 6 6121-5 ####[facility] [id number] [address] OF [facility] CNOVon 06-17-2025 CNOV Office Visit (FAMPWS ) -- VIC BALLESTEROS ([id number]) 1965 M Date Time Provider Department 06/17/25 1:40 PM MYAH ARTEAGA During your visit today, we recorded the following information about you: Pulse Blood pressure Weight 77/minute 132/72 118.4 kg Myah Arteaga MD 06/17/2025 2:19 PM Signed - Continue taking Lipitor (atorvastatin) daily as prescribed to help stabilize plaque. - Take aspirin once daily. - Keep using your prescribed testosterone regimen; routine labs will monitor levels. - In one month, have blood drawn for: CBC Liver function tests Fasting lipid panel PSA Testosterone level - Continue using your CPAP machine nightly for sleep apnea. - Use tramadol for pain as prescribed and apply 5% lidocaine cream plus Voltaren gel to painful areas as needed. - Maintain your current diet and continue blood pressure medications to keep your blood pressure tightly controlled. - Return in six months for follow-up to review lab results and overall management. - Complete a follow-up chest CT in about 12 months to recheck the lung nodule. - Follow up with cardiology in one year to reassess your coronary calcification. - Schedule an appointment with Dr. Butler to remove the remaining skin lesion. - Follow up with pain management for the planned L5 nerve block procedure. Myah Arteaga MD 06/17/2025 4:38 PM Signed Regan Ballesteros is a 59-year-old male with a history of coronary artery calcification, chronic pain, and depression, presenting for follow-up. HPI Coronary Artery Calcification: - Coronary artery calcification incidentally found on a CT scan of the lungs. - Recent normal stress test. - Started on Lipitor and aspirin by cardiology. - No current angina or dyspnea. - Blood pressure reportedly well-controlled. Chronic Pain: - Chronic pain managed with tramadol and caudal epidural injections. - Scheduled for an L5 nerve block. - Experiencing neuropathic pain in the legs, particularly at night, managed with clonazepam. - Considering a spinal cord stimulator for persistent burning pain in the foot. - Using 5% lidocaine and Voltaren gel for localized pain relief. Depression: - Managed with Adderall and Wellbutrin; recent dosage increase. - Reports feeling well with current medication regimen. Pulmonary Nodule: - Small nodule in the right lower lobe found on CT scan. - Scheduled for follow-up CT scan in a year. Hyperlipidemia: - Recently started on Lipitor. - Lipid panel ordered for next year. Chronic Kidney Disease: - Under care of nephrology. - Recent labs showed abnormal phosphorus levels; nephrology not concerned. - Monitoring protein levels in urine. Hypogonadism: - On testosterone replacement therapy. - Reports differences in absorption between different packaging of testosterone gel. - Recent testosterone levels reportedly stable. Obstructive Sleep Apnea: - Using CPAP therapy. - Reports good sleep quality with CPAP use. MEDICATIONS: Current Outpatient Medications Medication Sig aspirin, enteric coated (ECOTRIN LOW STRENGTH) 81 mg EC tablet Take 1 tablet by mouth once daily. atorvastatin (LIPITOR) 10 mg tablet Take 1 tablet by mouth once daily. testosterone (ANDROGEL) 50 mg / 5 g (1%) Apply 1 packet to affected area every other day. Alternating with 25 mg. losartan (COZAAR) 50 mg tablet Take 1 tablet by mouth once daily. pantoprazole DR (PROTONIX) 40 mg tablet TAKE 1 TABLET BY MOUTH DAILY testosterone (ANDROGEL) 25 mg/ 2.5g (1%) Apply 1 packet to affected area every other day for 180 days. Alernating witth 50 mg qod diclofenac (VOLTAREN) 1 % topical gel APPLY 4 GRAMS TO THE LOWER EXTREMITY JOINT WITH A MAXIMUM OF 16 GRAMS PER DAY lidocaine (LMX) 4 % cream Apply to affected area once daily as needed. lidocaine HCl 2 % crea Apply to affected area once daily as needed. amphetamine-dextroamphetam ine XR (ADDERALL XR) 10 mg capsule Take 10 mg by mouth once daily. buPROPion (WELLBUTRIN) 75 mg tablet Take 75 mg by mouth two times a day. budesonide-formoterol (SYMBICORT) 80-4.5 mcg/actuation inhaler Inhale 2 Puffs as instructed two times a day. Tadalafil (CIALIS) 20 mg tablet TAKE 1 TABLET BY MOUTH 1-2 HOURS BEFORE SEXUAL INTRACOURSE NEEDED albuterol HFA (VENTOLIN HFA) 90 mcg/actuation inhaler Inhale 2 Puffs as instructed every 4 hours as needed for wheezing/shortness of breath. acetaminophen (TYLENOL EXTRA STRENGTH) 500 mg tablet Take 2 tablets by mouth every 8 hours as needed for pain. traMADol (ULTRAM) 50 mg tablet albuterol (PROVENTIL) 2.5 mg /3 mL (0.083 %) nebulizer solution Use 3 mL via nebulizer every 6 hours as needed for wheezing/shortness of breath. Use over 5-15minutes. CPAP/BIPAP/OTHER autoCPAP 5-20 cmH2O DME [facility] CPAP Initiate Auto PAP @ 5-20 cm of water with humidification. Mask (per patient prefere (more content not included)... Normal [facility] CBC panel Auto (Bld)on 06-09 Erythrocyte distribution width (RBC) [Ratio] 12.7 % Normal 11.5-15.0 [facility] Comment on above: Order Comment: Speci men Type: BLOOD SPECIMENOrdering Facility: [facility] Address: [address] [place] [address] Performed By: #### 5 8410-2 ####[facility] [id number] [place] [address] [place] Hematocrit (Bld) [Volume fraction] 47.0 % Normal 39.0-51.0 [facility] Comment on above: Order Comment: Speci men Type: BLOOD SPECIMENOrdering Facility: [facility] Address: [address] [place] [address] Performed By: #### 5 8410-2 ####[facility] [id number] [place] [address] [place] Hemoglobin (Bld) [Mass/Vol] 16.3 g/dL Normal 13.0-17.0 [facility] Comment on above: Order Comment: Speci men Type: BLOOD SPECIMENOrdering Facility: [facility] Address: [address] [place] [address] Performed By: #### 5 8410-2 ####[facility]ENTERLIA [id number] [place] [address] [place] MCH (RBC) [Entitic mass] 32.5 pg Normal 26.0-34.0 [facility] Comment on above: Order Comment: Speci men Type: BLOOD SPECIMENOrdering Facility: [facility] Address: [address] [place] [address] Performed By: #### 5 8410-2 ####[facility]ENCYJessica [id number] [place] [address] [place] MCHC (RBC) [Mass/Vol] 34.7 g/dL Normal 30.5-36.0 [facility] Comment on above: Order Comment: Speci men Type: BLOOD SPECIMENOrdering Facility: [facility] Address: [address] [place] [address] Performed By: #### 5 8410-2 ####[facility] [id number] [place] [address] [place] MCV (RBC) [Entitic vol] 93.6 fL Normal 80.0-100.0 [facility] Comment on above: Order Comment: Speci men Type: BLOOD SPECIMENOrdering Facility: [facility] Address: [address] [place] [address] Performed By: #### 5 8410-2 ####[facility] [id number] [place] [address] [place] Nucleated RBC (Bld) [#/Vol] 10*3/uL Normal <0.01 [facility] Comment on above: Order Comment: Speci men Type: BLOOD SPECIMENOrdering Facility: [facility] Address: [address] [place] [address] Performed By: #### 5 8410-2 ####[facility] [id number] [place] [address] [place] Platelet mean volume (Bld) [Entitic vol] 10.0 fL Normal 9.0-12.7 [facility] Comment on above: Order Comment: Speci men Type: BLOOD SPECIMENOrdering Facility: [facility] Address: [address] [place] [address] Performed By: #### 5 8410-2 ####[facility] [id number] [place] [address] [place] Platelets (Bld) [#/Vol] 181 10*3/uL Normal 150-400 [facility] Comment on above: Order Comment: Speci men Type: BLOOD SPECIMENOrdering Facility: [facility] Address: [address] [place] [address] Performed By: #### 5 8410-2 ####[facility]ENTERWNCLIA [id number] [place] [address] [place] RBC (Bld) [#/Vol] 5.02 10*6/uL Normal 4.20-6.00 [facility] Comment on above: Order Comment: Speci men Type: BLOOD SPECIMENOrdering Facility: [facility] Address: [address] [place] [address] Performed By: #### 5 8410-2 ####[facility]ITALNCLIA [id number] [place] [address] [place] WBC (Bld) [#/Vol] 5.79 10*3/uL Normal 3.70-11.00 [facility] Comment on above: Order Comment: Speci men Type: BLOOD SPECIMENOrdering Facility: [facility] Address: [address] [place] [address] Performed By: #### 5 8410-2 ####[facility]ITALNCLIA [id number] [place] [address] [place] CNNURSEon 06-09-2025 CNNURSE Nurse Visit (GENSWS) -- VIC BALLESTEROS ([id number]) 1965 M Date Time Provider Department 06/09/25 8:00 AM NURSE [facility] GENSWS During your visit today, we recorded the following information about you: Vivek Soto RN 06/09/2025 8:30 AM Signed The back (site) was assessed and sutures were removed as ordered. Dressing was applied. Patient instructed on wound care and verbalized understanding. Path reviewed by Holly Maloney and discussed with the Pt. Allergies As of Date: 06/09/2025 Noted Allergy Reaction PENICILLIN G 04/27/2005 4 - Hives SULFA (SULFONAMIDE ANTIBIOTICS) 04/27/2005 4 - Hives CELEBREX (CELECOXIB) 11/11/2009 2 - Rash LISINOPRIL 04/23/2024 5 - Intolerance Comments: Cough Date Reviewed: 06/02/2025 Reviewed by: Ratna Madsen RN - Fully Assessed Primary Visit Diagnosis:Visit for suture removal [Z48.02] Prescriptions as of 06/10/2025 - aspirin, enteric coated (ECOTRIN LOW STRENGTH) 81 mg EC tablet Take 1 tablet by mouth once daily. - atorvastatin (LIPITOR) 10 mg tablet Take 1 tablet by mouth once daily. - testosterone (ANDROGEL) 50 mg / 5 g (1%) Apply 1 packet to affected area every other day. Alternating with 25 mg. - losartan (COZAAR) 50 mg tablet Take 1 tablet by mouth once daily. - pantoprazole DR (PROTONIX) 40 mg tablet TAKE 1 TABLET BY MOUTH DAILY - testosterone (ANDROGEL) 25 mg/ 2.5g (1%) Apply 1 packet to affected area every other day for 180 days. Alernating witth 50 mg qod - diclofenac (VOLTAREN) 1 % topical gel APPLY 4 GRAMS TO THE LOWER EXTREMITY JOINT WITH A MAXIMUM OF 16 GRAMS PER DAY - lidocaine (LMX) 4 % cream Apply to affected area once daily as needed. - lidocaine HCl 2 % crea Apply to affected area once daily as needed. - amphetamine-dextroamphetam ine XR (ADDERALL XR) 10 mg capsule Take 10 mg by mouth once daily. - buPROPion (WELLBUTRIN) 75 mg tablet Take 75 mg by mouth two times a day. - budesonide-formoterol (SYMBICORT) 80-4.5 mcg/actuation inhaler Inhale 2 Puffs as instructed two times a day. - Tadalafil (CIALIS) 20 mg tablet TAKE 1 TABLET BY MOUTH 1-2 HOURS BEFORE SEXUAL INTRACOURSE NEEDED - albuterol HFA (VENTOLIN HFA) 90 mcg/actuation inhaler Inhale 2 Puffs as instructed every 4 hours as needed for wheezing/shortness of breath. - acetaminophen (TYLENOL EXTRA STRENGTH) 500 mg tablet Take 2 tablets by mouth every 8 hours as needed for pain. - traMADol (ULTRAM) 50 mg tablet - albuterol (PROVENTIL) 2.5 mg /3 mL (0.083 %) nebulizer solution Use 3 mL via nebulizer every 6 hours as needed for wheezing/shortness of breath. Use over 5-15minutes. - CPAP/BIPAP/OTHER autoCPAP 5-20 cmH2O DME [employer] - CPAP Initiate Auto PAP @ 5-20 cm of water with humidification. Mask (per patient preference) optional chin strap (if indicated) , filters, tubing, humidifier and lifetime supplies. Current machine is 7 years old and needs replaced. Insurance if refusing titration sleep study. - clonazePAM (KLONOPIN) 1 mg tablet TAKE 1/2 TABLET THREE TIMES A DAY NEEDED Problem List As Of Date 06/09/2025 Noted Resolved Sebaceous cyst [L72.3] 10/13/2006 04/15/2011 FOLLICULITIS////HAIR DISEASES NEC [L67.8, L73.8]10/13/2006 04/15/2011 Neoplasm of uncertain behavior of skin [D48.5] 10/13/2006 04/15/2011 SOLAR LENTIGENES///DYSCHROMIA OTHER [L81.9] 10/13/2006 04/15/2011 Benign neoplasm of skin of upper limb, includin*11/13/2006 04/15/2011 PAIN ABDOMEN( Left Lower Quadrant) [R10.32] 12/26/2008 04/15/2011 Hemorrhage of rectum and anus [K62.5] 12/26/2008 08/06/2015 ADJUSTMENT DISORDER WITH DEPRESSED MOOD [F43.21]12/26/2008 Mixed hyperlipidemia [E78.2] 01/13/2011 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] 01/13/2011 Unspecified constipation [K59.00] 04/17/2012 08/06/2015 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.9] 05/01/2013 03/20/2017 AMANDA (obstructive sleep apnea) [G47.33] 11/26/2014 Morbid obesity (HCC) [E66.01] 08/06/2015 Right foot drop [M21.371] 08/06/2015 Benign prostatic hyperplasia with lower urinary*01/18/2016 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] 07/20/2016 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*07/29/2016 DDD (degenerative disc disease), lumbar [M51.36*09/14/2016 RUQ pain [R10.11] 07/31/2017 08/23/2017 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/2019 TBI (traumatic brain injury) (HCC) [S06.9XAA] 10/25/2021 Primary osteoarthritis of left hip [M16.12] 10/25/2021 History of palpitations [Z87.898] 10/25/2021 Red blood cell antibody positive [R76.8] 10/28/2021 Hepatitis C antibody positive in blood [R76.8] 03/29/2022 Sensorineural hearing loss (SNHL) of both ears *12/13/2022 Subjective tinnitus of both ears [H93.13] 12/13/2022 Essential hypertension [I10] 01/16/2023 GERD (gastroesophageal reflux disease) [K21.9] 01/16/2023 Depression [F32.A] 01/16/2023 Anxiety [F41.9] 01/16/2023 Abrasion of face [S00.81XA] 04/20/2023 12/11/2023 Diagno (more content not included)... Normal [facility] Prot/Creat Uron 06-09-2025 Protein/Creatinine (U) [Mass ratio] 0.13 mg/mg Normal <0.15 [facility] Comment on above: Order Comment: Speci men Type: URINE SPECIMENOrdering Facility: [facility] Address: [address] [place] [address] Result Comment: Adul t Proteinuria Categories: <0.15 mg/mg is considered normal to mildly increased 0.15 - 0.50 mg/mg is considered moderately increased >0.50 mg/mg is considered severely increased KDIGO. (2013). KDIGO 2012 Clinical Practice Guideline for the Evaluation and Management of Chronic Kidney Disease. Official Journal of the International Society of Nephrology, 3(1), 1-150. Performed By: #### 2 890-2 ####[facility] [id number] [place] [id number] [place] Protein/Creatinine (U) [Mass ratio]on 06-09-2025 Creatinine (U) [Mass/Vol] 247.0 mg/dL Normal 20.0-300.0 [facility] Comment on above: Order Comment: Speci men Type: URINE SPECIMENOrdering Facility: [facility] Address: [address] [place] [address] Performed By: #### 2 890-2 ####[facility] [id number] [place] [address] [place] Protein (U) [Mass/Vol] 32 mg/dL High 0-20 [facility] Comment on above: Order Comment: Speci men Type: URINE SPECIMENOrdering Facility: [facility] Address: [address] [place] [address] Performed By: #### 2 890-2 ####[facility] [id number] [place] [id number] [place] Renal function 2000 panelon 06-09-2025 Albumin [Mass/Vol] 4.6 g/dL Normal 3.9-4.9 [facility] Comment on above: Order Comment: Speci men Type: BLOOD SPECIMENOrdering Facility: [facility] Address: [address] [place] [address] Performed By: #### 2 4362-6 ####[facility] [id number] [place] [address] [place] Anion gap [Moles/Vol] 14 mmol/L Normal 8-15 [facility] Comment on above: Order Comment: Speci men Type: BLOOD SPECIMENOrdering Facility: [facility] Address: [address] [place], [place] [address] Performed By: #### 2 4362-6 ####[facility] BRIA MILLTOWNCLIA [id number] [place] [address] [place] Calcium [Mass/Vol] 9.5 mg/dL Normal 8.5-10.2 [facility] Comment on above: Order Comment: Speci men Type: BLOOD SPECIMENOrdering Facility: [facility] Address: [address] [place], [place] [address] Performed By: #### 2 4362-6 ####[facility] MILLTOWNCLIA [id number] [place] [address] [place] Chloride [Moles/Vol] 103 mmol/L Normal 98-107 [facility] Comment on above: Order Comment: Speci men Type: BLOOD SPECIMENOrdering Facility: [facility] Address: [address] [place] [address] Performed By: #### 2 4362-6 ####[facility]ENTERWNCLIA [id number] [place] [address] [place] CO2 [Moles/Vol] 24 mmol/L Normal 22-30 [facility] Comment on above: Order Comment: Speci men Type: BLOOD SPECIMENOrdering Facility: [facility] Address: [facility] [place] [address] Performed By: #### 2 4362-6 ####[facility] MILLTOWNCLIA [id number] [place] [address] [place] Creatinine [Mass/Vol] 0.98 mg/dL Normal 0.73-1.22 [facility] Comment on above: Order Comment: Speci men Type: BLOOD SPECIMENOrdering Facility: [facility] Address: [facility] [place] [address] Performed By: #### 2 4362-6 ####[facility] MILLTOWNCLIA [id number] [place] [address] [place] eGFRcr SerPlBld CKD-EPI 2020 89 mL/min/1.73m??? Normal >=60 [facility] Comment on above: Order Comment: Geovanny noland Type: BLOOD SPECIMENOrdering Facility: [facility] Address: [address] [place] [address] Result Comment: Shara mated Glomerular Filtration Rate (eGFR) is calculated using the 2020 CKD-EPI creatinine equation. This equation utilizes serum creatinine, sex, and age as parameters. The creatinine assay has traceable calibration to isotope dilution-mass spectrometry. Refer to KDIGO guidelines for clinical interpretation. In patients with unstable renal function, e.g. those with acute kidney injury, the eGFR may not accurately reflect actual GFR. Performed By: #### 2 4362-6 ####[facility] [id number] [place] [address] [place] Glucose [Mass/Vol] 97 mg/dL Normal 74-99 [facility] Comment on above: Order Comment: Geovanny noland Type: BLOOD SPECIMENOrdering Facility: [facility] Address: [address] [place] [address] Result Comment: The [place] Diabetes Association (ADA) provides guidance for cutoff values for fasting glucose and random glucose. The ADA defines fasting as no caloric intake for at least 8 hours. Fasting plasma glucose results between 100 to 125 mg/dL indicate increased risk for diabetes (prediabetes). Fasting plasma glucose results greater than or equal to 126 mg/dL meet the criteria for diagnosis of diabetes. In the absence of unequivocal hyperglycemia, results should be confirmed by repeat testing. In a patient with classic symptoms of hyperglycemia or hyperglycemic crisis, random plasma glucose results greater than or equal to 200 mg/dL meet the criteria for diagnosis of diabetes. Reference: Standards of Medical Care in Diabetes 2016, [place] Diabetes Association. Diabetes Care. 2016.39(Suppl 1). Performed By: #### 2 4362-6 ####[facility] [id number] [place] [address] [place] Phosphate [Mass/Vol] 2.5 mg/dL Low 2.7-4.8 [facility] Comment on above: Order Comment: Speci men Type: BLOOD SPECIMENOrdering Facility: [facility] Address: [address] [place] [address] Performed By: #### 2 4362-6 ####[facility] KAVONWARM SPRINGSNCGAMALIEL [id number] [place] [address] [place] Potassium [Moles/Vol] 4.0 mmol/L Normal 3.7-5.1 [facility] Comment on above: Order Comment: Speci men Type: BLOOD SPECIMENOrdering Facility: [facility] Address: [address] [place] [address] Performed By: #### 2 4362-6 ####[facility] HOSPITALNCJessica [id number] [place] [address] [place] Sodium [Moles/Vol] 141 mmol/L Normal 136-144 [facility] Comment on above: Order Comment: Speci men Type: BLOOD SPECIMENOrdering Facility: [facility] Address: [address] [place] [address] Performed By: #### 2 4362-6 ####[facility]ITALNCLIA [id number] [place] [address] [place] Urea nitrogen [Mass/Vol] 13 mg/dL Normal 9-24 [facility] Comment on above: Order Comment: Speci men Type: BLOOD SPECIMENOrdering Facility: [facility] Address: [address] [place] [address] Performed By: #### 2 4362-6 ####[facility]ITALNCLIA [id number] [place] [address] [place] Urinalysis complete panel (U )on 06-09-2025 Bacteria LM.HPF (Urine sed) [#/Area] Negative Normal Negative [facility] Comment on above: Order Comment: Speci men Type: URINE SPECIMENOrdering Facility: [facility] Address: [address] [place] [id number] Performed By: #### 2 4356-8 ####[facility] LABCLIA [id number] [address] [place] [address] [place] Bilirubin Ql (U) Negative Normal Negative [facility] Comment on above: Order Comment: Speci men Type: URINE SPECIMENOrdering Facility: [facility] Address: [address] [place] [address] Performed By: #### 2 4356-8 ####[facility] LABCLIA [id number] [address] [place] [address] [place] Clarity (Unsp spec) Clear Normal Clear [facility] Comment on above: Order Comment: Speci men Type: URINE SPECIMENOrdering Facility: [facility] Address: [address] [place] [address] Performed By: #### 2 4356-8 ####[facility] LABCLIA [id number] [address] [place] [address] [place] [facility] Color (U) Yellow Normal Yellow [facility] Comment on above: Order Comment: Speci men Type: URINE SPECIMENOrdering Facility: [facility] Address: [address] [place] [address] Performed By: #### 2 4356-8 ####[facility] LABCLIA [id number] [address] [place] [address] [place] Epithelial cells LM.HPF (Urine sed) [#/Area] None Seen Normal [facility] Comment on above: Order Comment: Speci men Type: URINE SPECIMENOrdering Facility: [facility] Address: [address] [place] [address] Performed By: #### 2 4356-8 ####[facility] LABCLIA [id number] [address] [place] [address] [place] Glucose Test strip (U) [Mass/Vol] Negative Normal Negative [facility] Comment on above: Order Comment: Speci men Type: URINE SPECIMENOrdering Facility: [facility] Address: [address] [place] [address] Performed By: #### 2 4356-8 ####[facility] LABCLIA [id number] [place] [address] [place] Hemoglobin Ql (U) Negative Normal Negative [facility] Comment on above: Order Comment: Speci men Type: URINE SPECIMENOrdering Facility: [facility] Address: [address] [place] [address] Performed By: #### 2 4356-8 ####[facility] LABCLIA [id number] [place] [address] [place] Hyaline casts (Urine sed) [#/Area] 1-3 /LPF Abnormal 0 /LPF [facility] Comment on above: Order Comment: Speci men Type: URINE SPECIMENOrdering Facility: [facility] Address: [address] [place] [address] Performed By: #### 2 4356-8 ####[facility] LABCLIA [id number] [place] [address] [place] Ketones Ql (U) Negative Normal Negative [facility] Comment on above: Order Comment: Speci men Type: URINE SPECIMENOrdering Facility: [facility] Address: [address] [place] [address] Performed By: #### 2 4356-8 ####[facility] LABCLIA [id number] [place] [address] [place] Leukocyte esterase Test strip Ql (U) Negative Normal Negative [facility] Comment on above: Order Comment: Speci men Type: URINE SPECIMENOrdering Facility: [facility] Address: [address] [place] [address] Performed By: #### 2 4356-8 ####[facility] LABCLIA [id number] [place] [id number] [place] Nitrite Ql (U) Negative Normal Negative [facility] Comment on above: Order Comment: Speci men Type: URINE SPECIMENOrdering Facility: [facility] Address: [address] [place] [address] Performed By: #### 2 4356-8 ####[facility] LABIA [id number] [place] [address] [place] pH (U) 6.0 [pH] Normal 5.0-8.0 [facility] Comment on above: Order Comment: Speci men Type: URINE SPECIMENOrdering Facility: [facility] Address: [address] [place] [address] Performed By: #### 2 4356-8 ####[facility] LABIA [id number] [place] [address] [place] Protein (U) [Mass/Vol] 1+ Abnormal Negative [facility] Comment on above: Order Comment: Speci men Type: URINE SPECIMENOrdering Facility: [facility] Address: [address] [place] [address] Performed By: #### 2 4356-8 ####[facility] LABIA [id number] [place] [address] [place] RBC LM.HPF (Urine sed) [#/Area] 0-2 /HPF Normal 0-2 /HPF [facility] Comment on above: Order Comment: Speci men Type: URINE SPECIMENOrdering Facility: [facility] Address: [address] [place] [address] Performed By: #### 2 4356-8 ####[facility] LABIA [id number] [place] [address] [place] Specific gravity (U) [Rel density] 1.026 Normal 1.005-1.030 [facility] Comment on above: Order Comment: Speci men Type: URINE SPECIMENOrdering Facility: [facility] Address: [address] [place] [address] Performed By: #### 2 4356-8 ####[facility] LABIA [id number] [place] [address] [place] Urobilinogen Ql (U) 0.2 EU/dL Normal 0.2-1.0 EU/dL [facility] Comment on above: Order Comment: Speci men Type: URINE SPECIMENOrdering Facility: [facility] Address: [address] [place] [address] Performed By: #### 2 4356-8 ####[facility] LABIA [id number] [place] [address] [place] WBC LM.HPF (Urine sed) [#/Area] 0-5 /HPF Normal 0-5 /HPF [facility] Comment on above: Order Comment: Speci men Type: URINE SPECIMENOrdering Facility: [facility] Address: [address] [place] [address] Performed By: #### 2 4356-8 ####[facility] LABIA [id number] [place] [address] [place] CNOVon 06-02-2025 CNOV Office Visit (CARDWH ) -- VIC BALLESTEROS ([id number]) 1965 M Date Time Provider Department 06/02/25 9:00 AM LAYLA LEWIS CARDANGY During your visit today, we recorded the following information about you: Pulse Blood pressure Weight Height 64/minute 130/84 120.7 kg 1.651 m Layla Lewis MD 06/02/2025 10:00 AM Signed [facility] [place] Kit Strickland Department of Cardiovascular Medicine SECTION OF REGIONAL CARDIOLOGY Vic Solomoneny is a 59 year old male here today for 7 month follow up. HPI: Vic Ballesteros is a (an) 59 year old year old male who is here today for continuation of cardiac care. Currently the patient is asymptomatic heart ahumada and has no cardiovascular complaints denying chest pain, shortness of breath, orthopnea, paroxysmal nocturnal dyspnea, cyanosis, palpitations, dizziness, lightheadedness, near syncope, syncope, edema of the lower extremities, perceived recent weight gain or intermittent claudications. The patient exercises regularly 6-7 times per week with walking. There were no cardiac, blood pressure or cholesterol medication changes since the patient was last seen during a cardiac visit. PAST MEDICAL HISTORY Diagnosis Date ACNE NEC 10/13/2006 Anxiety 01/16/2023 Depression Dyslipidemia Essential hypertension 01/16/2023 GERD (gastroesophageal reflux disease) 01/16/2023 History of traumatic brain injury Hypogonadism male 10/30/1988 Left knee pain Obesity AMANDA (obstructive sleep apnea) 10/30/2005 cpap PMH - PAST MEDICAL HISTORY OF L 5 nerve injury workman comp PMH - PAST MEDICAL HISTORY OF 10/30/1988 Industrial accident fall Stroke (HCC) Thrombosed external hemorrhoid 10/26/2011 Unspecified site of spinal cord injury without evidence of spinal bone injury 01/25/2013 PAST SURGICAL HISTORY Procedure Laterality Date ABDOMINAL SURGERY HX COLONOSCOPY FLX DX W/COLLJ SPEC WHEN PFRMD 04/17/2012 repeat 10 years COLONOSCOPY SCREENING 06/09/2022 10 year f/u colonoscopy FRACTURE SURGERY JOINT REPLACEMENT HX LAPAROSCOPY SURG CHOLECYSTECTOMY 08/01/2017 Cholecystectomy, lap PAST SURGICAL HISTORY OF Right 1988 wrist fracture after work accident, states still has hardware PAST SURGICAL HISTORY OF 1988 exploratory after accident, opened from pubic bone to breastbone REPAIR NASAL SEPTUM DEFECT RPR 1ST INCAL/VNT HERNIA INCARCERATED 10/28/2019 TOTAL HIP REPLACEMENT Left 2021 VASECTOMY UNI/BI SPX W/POSTOP SEMEN EXAMS Bilateral 1999 FAMILY HISTORY Problem Relation Age of Onset Heart Mother Hypertension Mother Stroke Mother Cancer Father lung, throat other (lymphoma) Sister other (car accident) Sister None Brother None Brother SOCIAL HISTORY Social History Tobacco Use Smoking status: Never Smokeless tobacco: Never Vaping Use Vaping status: Never Used Substance Use Topics Alcohol use: Yes Alcohol/week: 1.0 standard drink of alcohol Types: 1 Cans of Beer (12oz) per week Drug use: No ALLERGIES: Penicillin G, Sulfa (Sulfonamide Antibiotics), Celebrex [Celecoxib], and Lisinopril CURRENT MEDICATIONS: Current Outpatient Medications Medication Sig testosterone (ANDROGEL) 50 mg / 5 g (1%) Apply 1 packet to affected area every other day. Alternating with 25 mg. losartan (COZAAR) 50 mg tablet Take 1 tablet by mouth once daily. pantoprazole DR (PROTONIX) 40 mg tablet TAKE 1 TABLET BY MOUTH DAILY testosterone (ANDROGEL) 25 mg/ 2.5g (1%) Apply 1 packet to affected area every other day for 180 days. Alernating witth 50 mg qod amphetamine-dextroamphetam ine XR (ADDERALL XR) 10 mg capsule Take 10 mg by mouth once daily. buPROPion (WELLBUTRIN) 75 mg tablet Take 75 mg by mouth two times a day. Tadalafil (CIALIS) 20 mg tablet TAKE 1 TABLET BY MOUTH 1-2 HOURS BEFORE SEXUAL INTRACOURSE NEEDED acetaminophen (TYLENOL EXTRA STRENGTH) 500 mg tablet Take 2 tablets by mouth every 8 hours as needed for pain. traMADol (ULTRAM) 50 mg tablet CPAP Initiate Auto PAP @ 5-20 cm of water with humidification. Mask (per patient preference) optional chin strap (if indicated) , filters, tubing, humidifier and lifetime supplies. Current machine is 7 years old and needs replaced. Insurance if refusing titration sleep study. clonazePAM (KLONOPIN) 1 mg tablet TAKE 1/2 TABLET THREE TIMES A DAY NEEDED diclofenac (VOLTAREN) 1 % topical gel APPLY 4 GRAMS TO THE LOWER EXTREMITY JOINT WITH A MAXIMUM OF 16 GRAMS PER DAY lidocaine (LMX) 4 % cream Apply to affected area once daily as needed. lidocaine HCl 2 % crea Apply to affected area once daily as needed. budesonide-formoterol (SYMBICORT) 80-4.5 mcg/actuation inhaler Inhale 2 Puffs as instructed two times a day. albuterol HFA (VENTOLIN HFA) 90 mcg/actuation inhaler Inhale 2 Puffs as instructed every 4 hours as needed for wheezing/shortness of breath. albu (more content not included)... Normal [facility] ECG COMPLETEon 06-02-2025 Atrial Rate 64 BPM [facility] Calculated P [place] 41 degrees [facility] Calculated R [place] -15 degrees [facility] Calculated T [place] 47 degrees [facility] P-R Interval 186 ms [facility] QRS Duration 88 ms [facility] QT Interval 418 ms [facility] QTC Calculation ([place]) 431 ms [facility] Ventricular Rate 64 BPM [facility] NORMAL SINUS RHYTHM NORMAL ECG Confirmed by LAYLA LEWIS M.D. ([id number]), sound editor Johanna Talamantes ([id number]) on 06/02/2025 10:17:21 AM [facility] [place] NAME : JESSICA BALLESTEROS PID : [id number] : 1965 Gender : Male Race : ORD : [id number] Procedure Date : Jun 02 2025 09:46:02 Edit Date : Jun 02 2025 10:17:34 Diagnosis: NORMAL SINUS RHYTHM NORMAL ECG Confirmed by LAYLA LEWIS M.D. ([id number]), sound editor Johanna Talamantes ([id number]) on 06/02/2025 10:17:21 AM Test Reason : Location : 105 : CARD Overread By : LAYLA LEWIS M.D. Edited By : Johanna Talamantes Referred By : SELF, Acquired by : yary, [facility] ECG COMPLETE Ventricular Rate : 6 4 BPM Atrial Rate : 64 BPM P-R Interval : 186 ms QRS Duration : 88 ms Q-T Interval : 418 ms QTC Calculation(Bazett) : 431 ms Calculated P [place] : 41 degrees Calculated R [place] : -15 degrees Calculated T [place] : 47 degrees NORMAL SINUS RHYTHM NORMAL ECG Confirmed by LAYLA LEWIS M.D. ([id number]), sound editor Johanna Talamantes ([id number]) on 06/02/2025 10:17:21 AM NAME : VIC BALLESTEROS PID : [id number] : 1965 Gender : Male Race : ORD : [id number] Procedure Date : Jun 02 2025 09:46:02 Edit Date : Jun 02 2025 10:17:34 Diagnosis: NORMAL SINUS RHYTHM NORMAL ECG Confirmed by LAYLA LEWIS M.D. ([id number]), sound editor Johanna Talamantes ([id number]) on 06/02/2025 10:17:21 AM Test Reason : Location : 105 : CARD Overread By : LAYLA LEWIS M.D. Edited By : Johanna Talamantes Referred By : SELF, Acquired by : yary, Normal [facility] CNOVon 05-19-2025 CNOV Office Visit (GENSWS ) -- VIC BALLESTEROS ([id number]) 1965 M Date Time Provider Department 05/19/25 8:30 AM NATALI BUTLER During your visit today, we recorded the following information about you: Natali Butler MD 05/19/2025 10:04 AM Signed Regan is here for excision of skin lesions of his back that are causing irritation to him. PROCEDURE NOTE: Description of procedure: After informed consent was obtained, patient was brought to the procedure room. Appropriate time out protocol was followed. Patient was placed in the prone position. The site of the lesion was then cleansed with a sterile surgical skin preparation. Appropriate sterile surgical drapes were placed. The skin and subcutaneous tissues at the site were then infiltrated with local anesthetic. The lower back skin lesion was approached first. A skin incision was made at the site in an elliptical fashion to entirely incorporate the lesion with a 15 blade scalpel. The incision was carried down to the subcutaneous tissues. Dissection was done to separate the skin lesion from the surrounding subcutaneous tissues. The lesion was excised sharply down to the subcutaneous tissues. The lesion was 0.7 cm in size. The tissue was then removed and placed in formalin to be forwarded to pathology for analysis. Hemostasis was controlled by pressure. The skin edges were then reapproximated with interrupted 3-0 nylon suture in a simple fashion. The mid back skin lesion was approached next. A skin incision was made at the site in an elliptical fashion to entirely incorporate the lesion with a 15 blade scalpel. The incision was carried down to the subcutaneous tissues. Dissection was done to separate the skin lesion from the surrounding subcutaneous tissues. The lesion was excised sharply down to the subcutaneous tissues. The lesion was 1 cm in size. The tissue was then removed and placed in formalin to be forwarded to pathology for analysis. Hemostasis was controlled by pressure. The skin edges were then reapproximated with interrupted 3-0 nylon suture in a simple fashion. Sterile dressing was applied. Patient tolerated procedure well. PLAN: Wound care instructions given by clinic staff. Patient to follow up for nursing visit for removal of sutures. Office will call with results of pathology. Patient to return to clinic if any signs/symptoms of infection/etc. Patient acknowledges the above. Skyler Goodwin RN 05/19/2025 8:37 AM Signed UNIVERSAL PROTOCOL / SAFETY CHECKLIST Procedure to be Performed: Excision of skin lesion of back x 2 Sign In: A Moment of CARE was completed. Appropriate PPE (Personal Protective Equipment) worn by all providers involved with the procedure. Special equipment not required. Patient/Surrogate Stated/Verified: Patient name, Date of , Relevant allergies, and The intended procedure Time Out: Relevant labs, photos, and/or imaging studies are not applicable. Intended patient and procedure match the source document(s) (e.g. consent, HANDP, associated studies [imaging, pathology]) match the intended patient and procedure. Consent obtained and matches the intended procedure. Yes. Correct side/site is not applicable. Medications required for this procedure are verified. Fire risk assessed and is not applicable. Implants: are not applicable. Sign Out: Specimens are all correctly labeled and sent. All instruments, equipment, possible retained foreign bodies are accounted for. Yes. The post-procedure plan of care has been communicated to the patient or surrogate. Skyler Goodwin RN 05/19/2025 8:46 AM Signed The following instructions are important for you related to your office visit today with the [facility] General Surgeons. Instructions After SKIN EXCISION-SUTURES You can remove the dressing in two days. If the dressing becomes soaked or had significant drainage, the dressing should be changed. If there is minor bleeding from this skin edge, you should hold pressure on the incision until the bleeding stops. If there is continued bleeding, you should contact our office immediately. You do not need to leave a dressing on the wound after two days. If the wound shows signs of redness, inflammation, or purulent drainage, you should contact our office immediately. You should keep the wound dry for the first two days. After that time, you may wash the wound with gentle soap and water. The wound should not be immersed in a pool, bathtub, or even hot tub. We prefer to check the incision and remove the stitches in our office when ready. Please make an appointment to return to our office in 3 weeks. Please do not remove the stitches yourself without approval from our office. If you note any additional difficulties, questions, or concerns, you should conta (more content not included)... Normal [facility] Pathology biopsy report Montrell (Tiss)on 05-19-2025 AP DISCLAIMER Normal [facility] Comment on above: Order Comment: Speci men Type: TISSUE SPECIMENOrdering Facility: [facility] Address: [address] [place] [address] Result Comment: Keyana archuleta Developed Test (LDT) Disclaimer: Performance characteristics of immunohistochemical, immunofluorescent, and chromogenic in-situ hybridization tests have been determined by the performing laboratory within [facility]'s [facility] Pathology and Laboratory Medicine Department ([facility], [facility], [facility], [facility], [facility], [facility], or [facility]) in a manner consistent with CLIA requirements. One or more of these tests may not have been cleared or approved by the FDA. RT-PLM is regulated under CLIA as qualified to perform high-complexity testing. These tests are used for clinical purposes. These should not be regarded as investigational or for research. Positive and negative controls stain appropriately. Performed By: #### 6 6121-5 ####[facility] LABCLIA [id number] [place] [address] [place] CASE REPORT Normal [facility] Comment on above: Order Comment: Speci men Type: TISSUE SPECIMENOrdering Facility: [facility] Address: [address] [place] [address] Result Comment: Surg ical Pathology Report Case: [id number] Authorizing Provider: Natali Butler MD Collected: 05/19/2025 08:37 AM Ordering Location: General Surgery Received: 05/19/2025 04:46 PM Pathologist: Marta Cummings MD Specimens: A) - Skin Lesion/Soft Tissue Ulcer (Specify site in comment), lower back B) - Skin Lesion/Soft Tissue Ulcer (Specify site in comment), mid back Performed By: #### 6 6121-5 ####[facility] LABCLIA [id number] [address] [place] [address] [place] CLINICAL HISTORY lesion Normal [facility] Comment on above: Order Comment: Speci men Type: TISSUE SPECIMENOrdering Facility: [facility] Address: [address] [place] [address] Result Comment: Comm ent: lower back Performed By: #### 6 6121-5 ####[facility] LABCLIA [id number] [address] [place] [address] [place] DIAGNOSIS COMMENT Normal [facility] Comment on above: Order Comment: Speci men Type: TISSUE SPECIMENOrdering Facility: [facility] Address: [address] [place] [address] Result Comment: A. T he lesion appears narrowly excised within the planes of section available for examination. B. The lesion appears completely excised within the planes of section available for examination. Performed By: #### 6 6121-5 ####[facility]CLIA [id number] [address] [place] [address] [place] FINAL DIAGNOSIS Normal [facility] Comment on above: Order Comment: Speci men Type: TISSUE SPECIMENOrdering Facility: [facility] Address: [address] [place] [address] Result Comment: A. S kin, lower back, excision: - Intradermal nevus with congenital features, see comment. B. Skin, mid back, excision: - Intradermal nevus, traumatized, see comment. WFB/CATA 05/26/25 at 1437 EDT Performed By: #### 6 6121-5 ####[facility]CLIA [id number] [address] [place] [address] [place] FINAL PERFORMING LAB Normal [facility] Comment on above: Order Comment: Speci men Type: TISSUE SPECIMENOrdering Facility: [facility] Address: [address] [place], [place] [address] Result Comment: Diag nostic interpretation performed at: [facility], [address] [place] [address], [facility] [address] [place] [address] CLIA# [id number] Casualty Underwriter: Julio Cesar Sumner MD Performed By: #### 6 6121-5 ####[facility] LABCLIA [id number] [place] [address] [place] GROSS DESCRIPTION Normal [facility] Comment on above: Order Comment: Speci men Type: TISSUE SPECIMENOrdering Facility: [facility] Address: [address] [place] [address] Result Comment: A. S kin Lesion/Soft Tissue Ulcer (Specify site in comment) Received in formalin is an unoriented elliptical segment of skin and subcutaneous tissue measuring 0.7 x 0.4 x 0.4 cm. The skin surface demonstrates an ovoid chopra slightly elevated area measuring 0.3 x 0.2 cm, and extends to 0.1 cm of both margins. The margins are inked black. The specimen is sectioned and totally submitted in formalin as follows: A1 tips, A2 body of tissue with deep margin. B. Skin Lesion/Soft Tissue Ulcer (Specify site in comment) Augusto in formalin is an unoriented elliptical segment of skin and subcutaneous tissue measuring 0.9 x 0.6 x 1.5 cm. The skin surface demonstrates a circular chopra, elevated area measuring 0.3 x 0.3 cm, and extends to both margins. The margins are inked black. The specimen is sectioned and totally submitted in formalin as follows: B1 tips, B2 body of tissue with deep margin. CL May 21, 2025 4:20 PM Gross examination performed at [facility], [address] [place] [address] Performed By: #### 6 6121-5 ####[facility] LABIA [id number] [place] [address] [place] AP DISCLAIMER Normal [facility] Comment on above: Order Comment: Speci men Type: TISSUE SPECIMENOrdering Facility: [facility] Address: [address] [place] [address] Result Comment: Keyana archuleta Developed Test (LDT) Disclaimer: Performance characteristics of immunohistochemical, immunofluorescent, and chromogenic in-situ hybridization tests have been determined by the performing laboratory within [facility] ([facility], [facility], [facility], [facility], [facility], [facility], or [facility]) in a manner consistent with CLIA requirements. One or more of these tests may not have been cleared or approved by the FDA. RT-PLM is regulated under CLIA as qualified to perform high-complexity testing. These tests are used for clinical purposes. These should not be regarded as investigational or for research. Positive and negative controls stain appropriately. Performed By: #### 6 6121-5 ####[facility] LABIA [id number] [place] [address] [place] CASE REPORT Normal [facility] Comment on above: Order Comment: Speci men Type: TISSUE SPECIMENOrdering Facility: [facility] Address: [address] [place] [address] Result Comment: Surg [facility] Pathology Report Case: [id number] Authorizing Provider: Natali Butler MD Collected: 05/19/2025 08:37 AM Ordering Location: General Surgery Received: 05/19/2025 04:46 PM Pathologist: Marta Cummings MD Specimens: A) - Skin Lesion/Soft Tissue Ulcer (Specify site in comment), lower back B) - Skin Lesion/Soft Tissue Ulcer (Specify site in comment), mid back Performed By: #### 6 6121-5 ####[facility] LABIA [id number] [address] [address] [place] CLINICAL HISTORY lesion Normal [facility] Comment on above: Order Comment: Speci men Type: TISSUE SPECIMENOrdering Facility: [facility] Address: [address] [place] [address] Result Comment: Comm ent: lower back Performed By: #### 6 6121-5 ####[facility] LABCLIA [id number] [id number] [address] [place] DIAGNOSIS COMMENT Normal [facility] Comment on above: Order Comment: Speci men Type: TISSUE SPECIMENOrdering Facility: [facility] Address: [address] [place] [address] Result Comment: A. T he lesion appears narrowly excised within the planes of section available for examination. B. The lesion appears completely excised within the planes of section available for examination. Performed By: #### 6 6121-5 ####[facility] LABCLIA [id number] [address] [place] FINAL DIAGNOSIS Normal [facility] Comment on above: Order Comment: Speci men Type: TISSUE SPECIMENOrdering Facility: [facility] Address: [address] [place] [address] Result Comment: A. S kin, lower back, excision: - Intradermal nevus with congenital features, see comment. B. Skin, mid back, excision: - Intradermal nevus, traumatized, see comment. WFB/MW 05/26/25 at 1437 EDT Performed By: #### 6 6121-5 ####[facility] LABCLIA [id number] [address] STATES OF [facility] FINAL PERFORMING LAB Normal [facility] Comment on above: Order Comment: Speci men Type: TISSUE SPECIMENOrdering Facility: [facility] Address: [address] [place] [address] Result Comment: Diag nostic interpretation performed at: [facility], [address] [place] [address] CLIA# [id number] Casualty Underwriter: Julio Cesar Sumner MD Performed By: #### 6 6121-5 ####[facility]CLIA [id number] [address] [place] GROSS DESCRIPTION Normal [facility] Comment on above: Order Comment: Speci men Type: TISSUE SPECIMENOrdering Facility: [facility] Address: [address] [place] [address] Result Comment: A. S kin Lesion/Soft Tissue Ulcer (Specify site in comment) Received in formalin is an unoriented elliptical segment of skin and subcutaneous tissue measuring 0.7 x 0.4 x 0.4 cm. The skin surface demonstrates an ovoid chopra slightly elevated area measuring 0.3 x 0.2 cm, and extends to 0.1 cm of both margins. The margins are inked black. The specimen is sectioned and totally submitted in formalin as follows: A1 tips, A2 body of tissue with deep margin. B. Skin Lesion/Soft Tissue Ulcer (Specify site in comment) Augusto in formalin is an unoriented elliptical segment of skin and subcutaneous tissue measuring 0.9 x 0.6 x 1.5 cm. The skin surface demonstrates a circular chopra, elevated area measuring 0.3 x 0.3 cm, and extends to both margins. The margins are inked black. The specimen is sectioned and totally submitted in formalin as follows: B1 tips, B2 body of tissue with deep margin. CL May 21, 2025 4:20 PM Gross examination performed at [facility], [address] [place] [address] Performed By: #### 6 6121-5 ####[facility] LABCLIA [id number] [address] OF [facility] CNOVon 05-05-2025 CNOV Office Visit (GENSWS ) -- VIC BALLESTEROS ([id number]) 1965 M Date Time Provider Department 05/05/25 2:00 PM NATALI BUTLER During your visit today, we recorded the following information about you: Temperature Pulse Blood pressure Weight 97.1 degrees 83/minute 122/86 119 kg Height 1.651 m Natali Butler MD 05/07/2025 2:22 PM Signed Vic Ballesteros 1965 REFERRING PHYSICIAN: Tara Hilliard A* CHIEF COMPLAINT: Consult (Skin lesion on back) HPI: The patient is a 59 year old male presents with skin lesions of the back that are causing irritation to him. He has noted swelling at one of the sites. But the lesion has decreased in size. He has noted this for years. He denies drainage from the lesions. He denies history of skin cancer He denies cigarettes use: he denies diabetes. PAST MEDICAL HISTORY Diagnosis Date ACNE NEC 10/13/2006 Anxiety 01/16/2023 Depression Dyslipidemia Essential hypertension 01/16/2023 GERD (gastroesophageal reflux disease) 01/16/2023 History of traumatic brain injury Hypogonadism male 10/30/1988 Left knee pain Obesity AMANDA (obstructive sleep apnea) 10/30/2005 cpap PMH - PAST MEDICAL HISTORY OF L 5 nerve injury workman comp PMH - PAST MEDICAL HISTORY OF 10/30/1988 Industrial accident fall Stroke (HCC) Thrombosed external hemorrhoid 10/26/2011 Unspecified site of spinal cord injury without evidence of spinal bone injury 01/25/2013 PAST SURGICAL HISTORY Procedure Laterality Date ABDOMINAL SURGERY HX COLONOSCOPY FLX DX W/COLLJ SPEC WHEN PFRMD 04/17/2012 repeat 10 years COLONOSCOPY SCREENING 06/09/2022 10 year f/u colonoscopy FRACTURE SURGERY JOINT REPLACEMENT HX LAPAROSCOPY SURG CHOLECYSTECTOMY 08/01/2017 Cholecystectomy, lap PAST SURGICAL HISTORY OF Right 1988 wrist fracture after work accident, states still has hardware PAST SURGICAL HISTORY OF 1988 exploratory after accident, opened from pubic bone to breastbone REPAIR NASAL SEPTUM DEFECT RPR 1ST INCAL/VNT HERNIA INCARCERATED 10/28/2019 TOTAL HIP REPLACEMENT Left 2021 VASECTOMY UNI/BI SPX W/POSTOP SEMEN EXAMS Bilateral 1999 Current Outpatient Medications Medication Sig losartan (COZAAR) 50 mg tablet Take 1 tablet by mouth once daily. pantoprazole DR (PROTONIX) 40 mg tablet TAKE 1 TABLET BY MOUTH DAILY testosterone (ANDROGEL) 25 mg/ 2.5g (1%) Apply 1 packet to affected area every other day for 180 days. Alernating witth 50 mg qod testosterone (ANDROGEL) 50 mg / 5 g (1%) Apply 1 packet to affected area every other day. Alternating with 25 mg. diclofenac (VOLTAREN) 1 % topical gel APPLY 4 GRAMS TO THE LOWER EXTREMITY JOINT WITH A MAXIMUM OF 16 GRAMS PER DAY lidocaine (LMX) 4 % cream Apply to affected area once daily as needed. lidocaine HCl 2 % crea Apply to affected area once daily as needed. amphetamine-dextroamphetam ine XR (ADDERALL XR) 10 mg capsule Take 10 mg by mouth once daily. buPROPion (WELLBUTRIN) 75 mg tablet Take 75 mg by mouth two times a day. budesonide-formoterol (SYMBICORT) 80-4.5 mcg/actuation inhaler Inhale 2 Puffs as instructed two times a day. Tadalafil (CIALIS) 20 mg tablet TAKE 1 TABLET BY MOUTH 1-2 HOURS BEFORE SEXUAL INTRACOURSE NEEDED acetaminophen (TYLENOL EXTRA STRENGTH) 500 mg tablet Take 2 tablets by mouth every 8 hours as needed for pain. traMADol (ULTRAM) 50 mg tablet albuterol (PROVENTIL) 2.5 mg /3 mL (0.083 %) nebulizer solution Use 3 mL via nebulizer every 6 hours as needed for wheezing/shortness of breath. Use over 5-15minutes. CPAP/BIPAP/OTHER autoCPAP 5-20 cmH2O DME [employer] CPAP Initiate Auto PAP @ 5-20 cm of water with humidification. Mask (per patient preference) optional chin strap (if indicated) , filters, tubing, humidifier and lifetime supplies. Current machine is 7 years old and needs replaced. Insurance if refusing titration sleep study. clonazePAM (KLONOPIN) 1 mg tablet TAKE 1/2 TABLET THREE TIMES A DAY NEEDED albuterol HFA (VENTOLIN HFA) 90 mcg/actuation inhaler Inhale 2 Puffs as instructed every 4 hours as needed for wheezing/shortness of breath. No current facility-administered medications for this visit. ALLERGIES: Penicillin G, Sulfa (Sulfonamide Antibiotics), Celebrex [Celecoxib], and Lisinopril PERSONAL HISTORY: Social History Tobacco Use Smoking status: Never Smokeless tobacco: Never Vaping Use Vaping status: Never Used Substance Use Topics Alcohol use: Yes Alcohol/week: 1.0 standard drink of alcohol Types: 1 Cans of Beer (12oz) per week Drug use: No FAMILY HISTORY Problem Relation Age of Onset Heart Mother Hypertension Mother Stroke Mother Cancer Father lung, throat other (lymphoma) Sister other (car accident) Sister None Brother None Brother REVIEW OF SYSTEMS: General - denies fevers HEENT - denies trauma/infections Resp - dewey (more content not included)... Normal [facility] CNOVon 05-01-2025 CNOV Office Visit (FAMPWS ) -- VIC BALLESTEROS ([id number]) 1965 M Date Time Provider Department 05/01/25 9:00 AM [facility] [employer] [facility] [facility] During your visit today, we recorded the following information about you: Pulse Blood pressure Weight 63/minute 128/78 119.3 kg Tara Hilliard APRN.LEATHER SORTER 05/01/2025 9:27 AM Signed This is a 59 year old male who presents today with: Patient presents with: LESION, SKIN: Lesion on back HISTORY OF PRESENT ILLNESS: Vic Ballesteros is a 59 year old male. Patient presents with: LESION, SKIN: Lesion on back Regan Ballesteros is a 59-year-old male presenting for evaluation of a lesion on the back. Neoplasm on T12 area that is midline and painful. Back Lesion: - Lesion on the spine, described as a red bump, causing significant discomfort. - Lesion is itchy sometimes and sometimes it hurts. - Regan noticed lesion recently; has had a mole in the same area for a long time. - Lesion appears irritated and wants to bleed. - Regan has attempted to dig it open without success; thought it might have seeped a little yesterday. - Wears suspenders with a strap that goes up the middle of the back; suspects this may be contributing to irritation. - Denies any other lesions in the area. - History of a fall from a roof in 1988, followed by a myelogram; Regan believes the mole has been present since then. PAST MEDICAL HISTORY: PAST MEDICAL HISTORY Diagnosis Date ACNE NEC 10/13/2006 Anxiety 01/16/2023 Depression Dyslipidemia Essential hypertension 01/16/2023 GERD (gastroesophageal reflux disease) 01/16/2023 History of traumatic brain injury Hypogonadism male 10/30/1988 Left knee pain Obesity AMANDA (obstructive sleep apnea) 10/30/2005 cpap PMH - PAST MEDICAL HISTORY OF L 5 nerve injury workman comp PMH - PAST MEDICAL HISTORY OF 10/30/1988 Industrial accident fall Stroke (HCC) Thrombosed external hemorrhoid 10/26/2011 Unspecified site of spinal cord injury without evidence of spinal bone injury 01/25/2013 PAST SURGICAL HISTORY Procedure Laterality Date ABDOMINAL SURGERY HX COLONOSCOPY FLX DX W/COLLJ SPEC WHEN PFRMD 04/17/2012 repeat 10 years COLONOSCOPY SCREENING 06/09/2022 10 year f/u colonoscopy FRACTURE SURGERY JOINT REPLACEMENT HX LAPAROSCOPY SURG CHOLECYSTECTOMY 08/01/2017 Cholecystectomy, lap PAST SURGICAL HISTORY OF Right 1988 wrist fracture after work accident, states still has hardware PAST SURGICAL HISTORY OF 1988 exploratory after accident, opened from pubic bone to breastbone REPAIR NASAL SEPTUM DEFECT RPR 1ST INCAL/VNT HERNIA INCARCERATED 10/28/2019 TOTAL HIP REPLACEMENT Left 2021 VASECTOMY UNI/BI SPX W/POSTOP SEMEN EXAMS Bilateral 1999 ALLERGIES Penicillin G, Sulfa (Sulfonamide Antibiotics), Celebrex [Celecoxib], and Lisinopril MEDICATIONS Current Outpatient Medications Medication Sig pantoprazole DR (PROTONIX) 40 mg tablet TAKE 1 TABLET BY MOUTH DAILY testosterone (ANDROGEL) 25 mg/ 2.5g (1%) Apply 1 packet to affected area every other day for 180 days. Alernating witth 50 mg qod testosterone (ANDROGEL) 50 mg / 5 g (1%) Apply 1 packet to affected area every other day. Alternating with 25 mg. diclofenac (VOLTAREN) 1 % topical gel APPLY 4 GRAMS TO THE LOWER EXTREMITY JOINT WITH A MAXIMUM OF 16 GRAMS PER DAY lidocaine (LMX) 4 % cream Apply to affected area once daily as needed. lidocaine HCl 2 % crea Apply to affected area once daily as needed. amphetamine-dextroamphetam ine XR (ADDERALL XR) 10 mg capsule Take 10 mg by mouth once daily. buPROPion (WELLBUTRIN) 75 mg tablet Take 75 mg by mouth two times a day. budesonide-formoterol (SYMBICORT) 80-4.5 mcg/actuation inhaler Inhale 2 Puffs as instructed two times a day. Tadalafil (CIALIS) 20 mg tablet TAKE 1 TABLET BY MOUTH 1-2 HOURS BEFORE SEXUAL INTRACOURSE NEEDED albuterol HFA (VENTOLIN HFA) 90 mcg/actuation inhaler Inhale 2 Puffs as instructed every 4 hours as needed for wheezing/shortness of breath. acetaminophen (TYLENOL EXTRA STRENGTH) 500 mg tablet Take 2 tablets by mouth every 8 hours as needed for pain. traMADol (ULTRAM) 50 mg tablet albuterol (PROVENTIL) 2.5 mg /3 mL (0.083 %) nebulizer solution Use 3 mL via nebulizer every 6 hours as needed for wheezing/shortness of breath. Use over 5-15minutes. losartan (COZAAR) 50 mg tablet Take 1 tablet by mouth once daily. CPAP/BIPAP/OTHER autoCPAP 5-20 cmH2O DME [facility] CPAP Initiate Auto PAP @ 5-20 cm of water with humidification. Mask (per patient preference) optional chin strap (if indicated) , filters, tubing, humidifier and lifetime supplies. Current machine is 7 years old and needs replaced. Insurance if refusing titration sleep study. clonazePAM (KLONOPIN) 1 mg tablet TAKE 1/2 TABLET THREE TIMES A DAY NEEDED No current facility-administered medications for this visit. FAMILY HIS (more content not included)... Normal [facility] CNOVon 04-29-2025 CNOV Office Visit (ENDONO ) -- VIC BALLESTEROS ([id number]) 1965 M Date Time Provider Department 04/29/25 2:40 PM SHERON MARK During your visit today, we recorded the following information about you: Temperature Pulse Respiration Blood pressure 96.8 degrees 61/minute 17/minute 134/77 Weight Height 120.8 kg 1.672 m Sheron Mark MD 05/19/2025 12:31 AM Signed Left before being seen.No charge. Dr Mark Allergies As of Date: 04/29/2025 Noted Allergy Reaction PENICILLIN G 04/27/2005 4 - Hives SULFA (SULFONAMIDE ANTIBIOTICS) 04/27/2005 4 - Hives CELEBREX (CELECOXIB) 11/11/2009 2 - Rash LISINOPRIL 04/23/2024 5 - Intolerance Comments: Cough Date Reviewed: 04/29/2025 Reviewed by: Lizette Canales MA - Fully Assessed Reason for Visit: Follow Up, Weight Management [Other] Primary Visit Diagnosis:Abnormal weight gain [R63.5] Prescriptions as of 05/19/2025 - testosterone (ANDROGEL) 50 mg / 5 g (1%) Apply 1 packet to affected area every other day. Alternating with 25 mg. - losartan (COZAAR) 50 mg tablet Take 1 tablet by mouth once daily. - pantoprazole DR (PROTONIX) 40 mg tablet TAKE 1 TABLET BY MOUTH DAILY - testosterone (ANDROGEL) 25 mg/ 2.5g (1%) Apply 1 packet to affected area every other day for 180 days. Alernating witth 50 mg qod - diclofenac (VOLTAREN) 1 % topical gel APPLY 4 GRAMS TO THE LOWER EXTREMITY JOINT WITH A MAXIMUM OF 16 GRAMS PER DAY - lidocaine (LMX) 4 % cream Apply to affected area once daily as needed. - lidocaine HCl 2 % crea Apply to affected area once daily as needed. - amphetamine-dextroamphetam ine XR (ADDERALL XR) 10 mg capsule Take 10 mg by mouth once daily. - buPROPion (WELLBUTRIN) 75 mg tablet Take 75 mg by mouth two times a day. - budesonide-formoterol (SYMBICORT) 80-4.5 mcg/actuation inhaler Inhale 2 Puffs as instructed two times a day. - Tadalafil (CIALIS) 20 mg tablet TAKE 1 TABLET BY MOUTH 1-2 HOURS BEFORE SEXUAL INTRACOURSE NEEDED - albuterol HFA (VENTOLIN HFA) 90 mcg/actuation inhaler Inhale 2 Puffs as instructed every 4 hours as needed for wheezing/shortness of breath. - acetaminophen (TYLENOL EXTRA STRENGTH) 500 mg tablet Take 2 tablets by mouth every 8 hours as needed for pain. - traMADol (ULTRAM) 50 mg tablet - albuterol (PROVENTIL) 2.5 mg /3 mL (0.083 %) nebulizer solution Use 3 mL via nebulizer every 6 hours as needed for wheezing/shortness of breath. Use over 5-15minutes. - CPAP/BIPAP/OTHER autoCPAP 5-20 cmH2O DME [facility] - CPAP Initiate Auto PAP @ 5-20 cm of water with humidification. Mask (per patient preference) optional chin strap (if indicated) , filters, tubing, humidifier and lifetime supplies. Current machine is 7 years old and needs replaced. Insurance if refusing titration sleep study. - clonazePAM (KLONOPIN) 1 mg tablet TAKE 1/2 TABLET THREE TIMES A DAY NEEDED Problem List As Of Date 04/29/2025 Noted Resolved Sebaceous cyst [L72.3] 10/13/2006 04/15/2011 FOLLICULITIS////HAIR DISEASES NEC [L67.8, L73.8]10/13/2006 04/15/2011 Neoplasm of uncertain behavior of skin [D48.5] 10/13/2006 04/15/2011 SOLAR LENTIGENES///DYSCHROMIA OTHER [L81.9] 10/13/2006 04/15/2011 Benign neoplasm of skin of upper limb, includin*11/13/2006 04/15/2011 PAIN ABDOMEN( Left Lower Quadrant) [R10.32] 12/26/2008 04/15/2011 Hemorrhage of rectum and anus [K62.5] 12/26/2008 08/06/2015 ADJUSTMENT DISORDER WITH DEPRESSED MOOD [F43.21]12/26/2008 Mixed hyperlipidemia [E78.2] 01/13/2011 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] 01/13/2011 Unspecified constipation [K59.00] 04/17/2012 08/06/2015 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.9] 05/01/2013 03/20/2017 AMANDA (obstructive sleep apnea) [G47.33] 11/26/2014 Morbid obesity (HCC) [E66.01] 08/06/2015 Right foot drop [M21.371] 08/06/2015 Benign prostatic hyperplasia with lower urinary*01/18/2016 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] 07/20/2016 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*07/29/2016 DDD (degenerative disc disease), lumbar [M51.36*09/14/2016 RUQ pain [R10.11] 07/31/2017 08/23/2017 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/2019 TBI (traumatic brain injury) (HCC) [S06.9XAA] 10/25/2021 Primary osteoarthritis of left hip [M16.12] 10/25/2021 History of palpitations [Z87.898] 10/25/2021 Red blood cell antibody positive [R76.8] 10/28/2021 Hepatitis C antibody positive in blood [R76.8] 03/29/2022 Sensorineural hearing loss (SNHL) of both ears *12/13/2022 Subjective tinnitus of both ears [H93.13] 12/13/2022 Essential hypertension [I10] 01/16/2023 GERD (gastroesophageal reflux disease) [K21.9] 01/16/2023 Depression [F32.A] 01/16/2023 Anxiety [F41.9] 01/16/2023 Abrasion of face [S00.81XA] 04/20/2023 12/11/2023 Diagnosed: 06/07/2023 Facial paresthesia [R20.2] 06/07/2023 Diagnosed: 06/07/2023 Laceration of thumb [S61.019A] 06/07/2023 12/11/2023 Diagnosed: (more content not included)... Normal [facility] 03-04-2025 [facility] Telephone (FAMWS) -- VIC BALLESTEROS ([id number]) 1965 M Date Time Provider Department 03/04/25 MYAH ARTEAGA [facility] During your visit today, we recorded the following information about you: Lucy Aleman RN 03/04/2025 11:27 AM Signed [facility] reports lidocaine 2% cream is not available but there is a lidocaine 4% cream available. Asking pcp to send new Rx for lidocaine 4% cream. Pended. Allergies As of Date: 03/04/2025 Noted Allergy Reaction PENICILLIN G 04/27/2005 4 - Hives SULFA (SULFONAMIDE ANTIBIOTICS) 04/27/2005 4 - Hives CELEBREX (CELECOXIB) 11/11/2009 2 - Rash LISINOPRIL 04/23/2024 5 - Intolerance Comments: Cough Date Reviewed: 01/01/2025 Reviewed by: Chayito Parker MA - Fully Assessed Reason for Visit: Lidocaine [Other] Order(s):lidocaine (LMX) 4 % creamApply to affected area once daily as needed.Disp: 28 gRfl: 1 Prescriptions as of 03/04/2025 - lidocaine (LMX) 4 % cream Apply to affected area once daily as needed. - lidocaine HCl 2 % crea Apply to affected area once daily as needed. - amphetamine-dextroamphetam ine XR (ADDERALL XR) 10 mg capsule Take 10 mg by mouth once daily. - buPROPion (WELLBUTRIN) 75 mg tablet Take 75 mg by mouth two times a day. - budesonide-formoterol (SYMBICORT) 80-4.5 mcg/actuation inhaler Inhale 2 Puffs as instructed two times a day. - pantoprazole DR (PROTONIX) 40 mg tablet Take 1 tablet by mouth once daily. - testosterone (ANDROGEL) 50 mg / 5 g (1%) Apply 1 packet to affected area every other day. Alternating with 25 mg. - Tadalafil (CIALIS) 20 mg tablet TAKE 1 TABLET BY MOUTH 1-2 HOURS BEFORE SEXUAL INTRACOURSE NEEDED - albuterol HFA (VENTOLIN HFA) 90 mcg/actuation inhaler Inhale 2 Puffs as instructed every 4 hours as needed for wheezing/shortness of breath. - acetaminophen (TYLENOL EXTRA STRENGTH) 500 mg tablet Take 2 tablets by mouth every 8 hours as needed for pain. - traMADol (ULTRAM) 50 mg tablet - albuterol (PROVENTIL) 2.5 mg /3 mL (0.083 %) nebulizer solution Use 3 mL via nebulizer every 6 hours as needed for wheezing/shortness of breath. Use over 5-15minutes. - losartan (COZAAR) 50 mg tablet Take 1 tablet by mouth once daily. - testosterone (ANDROGEL) 25 mg/ 2.5g (1%) Apply 1 Packet to affected area every other day for 180 days. Alernating witth 50 mg qod - CPAP/BIPAP/OTHER autoCPAP 5-20 cmH2O DME [facility] - CPAP Initiate Auto PAP @ 5-20 cm of water with humidification. Mask (per patient preference) optional chin strap (if indicated) , filters, tubing, humidifier and lifetime supplies. Current machine is 7 years old and needs replaced. Insurance if refusing titration sleep study. - clonazePAM (KLONOPIN) 1 mg tablet TAKE 1/2 TABLET THREE TIMES A DAY NEEDED Problem List As Of Date 03/04/2025 Noted Resolved Sebaceous cyst [L72.3] 10/13/2006 04/15/2011 FOLLICULITIS////HAIR DISEASES NEC [L67.8, L73.8]10/13/2006 04/15/2011 Neoplasm of uncertain behavior of skin [D48.5] 10/13/2006 04/15/2011 SOLAR LENTIGENES///DYSCHROMIA OTHER [L81.9] 10/13/2006 04/15/2011 Benign neoplasm of skin of upper limb, includin*11/13/2006 04/15/2011 PAIN ABDOMEN( Left Lower Quadrant) [R10.32] 12/26/2008 04/15/2011 Hemorrhage of rectum and anus [K62.5] 12/26/2008 08/06/2015 ADJUSTMENT DISORDER WITH DEPRESSED MOOD [F43.21]12/26/2008 Mixed hyperlipidemia [E78.2] 01/13/2011 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] 01/13/2011 Unspecified constipation [K59.00] 04/17/2012 08/06/2015 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.9] 05/01/2013 03/20/2017 AMANDA (obstructive sleep apnea) [G47.33] 11/26/2014 Morbid obesity (HCC) [E66.01] 08/06/2015 Right foot drop [M21.371] 08/06/2015 Benign prostatic hyperplasia with lower urinary*01/18/2016 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] 07/20/2016 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*07/29/2016 DDD (degenerative disc disease), lumbar [M51.36*09/14/2016 RUQ pain [R10.11] 07/31/2017 08/23/2017 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/2019 TBI (traumatic brain injury) (HCC) [S06.9XAA] 10/25/2021 Primary osteoarthritis of left hip [M16.12] 10/25/2021 History of palpitations [Z87.898] 10/25/2021 Red blood cell antibody positive [R76.8] 10/28/2021 Hepatitis C antibody positive in blood [R76.8] 03/29/2022 Sensorineural hearing loss (SNHL) of both ears *12/13/2022 Subjective tinnitus of both ears [H93.13] 12/13/2022 Essential hypertension [I10] 01/16/2023 GERD (gastroesophageal reflux disease) [K21.9] 01/16/2023 Depression [F32.A] 01/16/2023 Anxiety [F41.9] 01/16/2023 Abrasion of face [S00.81XA] 04/20/2023 12/11/2023 Diagnosed: 06/07/2023 Facial paresthesia [R20.2] 06/07/2023 Diagnosed: 06/07/2023 Laceration of thumb [S61.019A] 06/07/2023 12/11/2023 Diagnosed: 06/07/2023 Oropharyngeal dysphagia [R13.12] 06/08/2023 Mass of spine [M89.8X8] 02/21/2024 Dyslipidemia [E78.5] 02/26/2024 Protein (more content not included)... [facility] VIC BALLESTEROS ([id number]) 1965 M Date Time Provider Department 02/25/25 MYAH ARTEAGA [facility] During your visit today, we recorded the following information about you: Adina Bansal RN 02/25/2025 3:27 PM Signed [facility] calling regarding lidocaine 4% gel script. States they only have the cream, is this ok to change? Also needs direction changed-it currently states to apply 1 tube once daily. Please send new script, if agreeable. Adina Bansal RN Allergies As of Date: 02/25/2025 Noted Allergy Reaction PENICILLIN G 04/27/2005 4 - Hives SULFA (SULFONAMIDE ANTIBIOTICS) 04/27/2005 4 - Hives CELEBREX (CELECOXIB) 11/11/2009 2 - Rash LISINOPRIL 04/23/2024 5 - Intolerance Comments: Cough Date Reviewed: 01/01/2025 Reviewed by: Chayito Parker MA - Fully Assessed Reason for Visit: Pharmacy Call [Other] Order(s):lidocaine HCl 2 % creaApply to affected area once daily as needed.Disp: 118 mLRfl: 1 Prescriptions as of 02/25/2025 - lidocaine HCl 2 % crea Apply to affected area once daily as needed. - amphetamine-dextroamphetam ine XR (ADDERALL XR) 10 mg capsule Take 10 mg by mouth once daily. - buPROPion (WELLBUTRIN) 75 mg tablet Take 75 mg by mouth two times a day. - budesonide-formoterol (SYMBICORT) 80-4.5 mcg/actuation inhaler Inhale 2 Puffs as instructed two times a day. - pantoprazole DR (PROTONIX) 40 mg tablet Take 1 tablet by mouth once daily. - testosterone (ANDROGEL) 50 mg / 5 g (1%) Apply 1 packet to affected area every other day. Alternating with 25 mg. - Tadalafil (CIALIS) 20 mg tablet TAKE 1 TABLET BY MOUTH 1-2 HOURS BEFORE SEXUAL INTRACOURSE NEEDED - albuterol HFA (VENTOLIN HFA) 90 mcg/actuation inhaler Inhale 2 Puffs as instructed every 4 hours as needed for wheezing/shortness of breath. - acetaminophen (TYLENOL EXTRA STRENGTH) 500 mg tablet Take 2 tablets by mouth every 8 hours as needed for pain. - traMADol (ULTRAM) 50 mg tablet - albuterol (PROVENTIL) 2.5 mg /3 mL (0.083 %) nebulizer solution Use 3 mL via nebulizer every 6 hours as needed for wheezing/shortness of breath. Use over 5-15minutes. - losartan (COZAAR) 50 mg tablet Take 1 tablet by mouth once daily. - testosterone (ANDROGEL) 25 mg/ 2.5g (1%) Apply 1 Packet to affected area every other day for 180 days. Alernating witth 50 mg qod - CPAP/BIPAP/OTHER autoCPAP 5-20 cmH2O DME [facility] - CPAP Initiate Auto PAP @ 5-20 cm of water with humidification. Mask (per patient preference) optional chin strap (if indicated) , filters, tubing, humidifier and lifetime supplies. Current machine is 7 years old and needs replaced. Insurance if refusing titration sleep study. - clonazePAM (KLONOPIN) 1 mg tablet TAKE 1/2 TABLET THREE TIMES A DAY NEEDED Problem List As Of Date 02/25/2025 Noted Resolved Sebaceous cyst [L72.3] 10/13/2006 04/15/2011 FOLLICULITIS////HAIR DISEASES NEC [L67.8, L73.8]10/13/2006 04/15/2011 Neoplasm of uncertain behavior of skin [D48.5] 10/13/2006 04/15/2011 SOLAR LENTIGENES///DYSCHROMIA OTHER [L81.9] 10/13/2006 04/15/2011 Benign neoplasm of skin of upper limb, includin*11/13/2006 04/15/2011 PAIN ABDOMEN( Left Lower Quadrant) [R10.32] 12/26/2008 04/15/2011 Hemorrhage of rectum and anus [K62.5] 12/26/2008 08/06/2015 ADJUSTMENT DISORDER WITH DEPRESSED MOOD [F43.21]12/26/2008 Mixed hyperlipidemia [E78.2] 01/13/2011 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] 01/13/2011 Unspecified constipation [K59.00] 04/17/2012 08/06/2015 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.9] 05/01/2013 03/20/2017 AMANDA (obstructive sleep apnea) [G47.33] 11/26/2014 Morbid obesity (HCC) [E66.01] 08/06/2015 Right foot drop [M21.371] 08/06/2015 Benign prostatic hyperplasia with lower urinary*01/18/2016 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] 07/20/2016 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*07/29/2016 DDD (degenerative disc disease), lumbar [M51.36*09/14/2016 RUQ pain [R10.11] 07/31/2017 08/23/2017 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/2019 TBI (traumatic brain injury) (HCC) [S06.9XAA] 10/25/2021 Primary osteoarthritis of left hip [M16.12] 10/25/2021 History of palpitations [Z87.898] 10/25/2021 Red blood cell antibody positive [R76.8] 10/28/2021 Hepatitis C antibody positive in blood [R76.8] 03/29/2022 Sensorineural hearing loss (SNHL) of both ears *12/13/2022 Subjective tinnitus of both ears [H93.13] 12/13/2022 Essential hypertension [I10] 01/16/2023 GERD (gastroesophageal reflux disease) [K21.9] 01/16/2023 Depression [F32.A] 01/16/2023 Anxiety [F41.9] 01/16/2023 Abrasion of face [S00.81XA] 04/20/2023 12/11/2023 Diagnosed: 06/07/2023 Facial paresthesia [R20.2] 06/07/2023 Diagnosed: 06/07/2023 Laceration of thumb [S61.019A] 06/07/2023 12/11/2023 Diagnosed: 06/07/2023 Oropharyngeal dysphagia [R13.12] 06/08/2023 Mass of spine [M89.8X8] 02/21/2024 Dyslipidemia [E78.5] (more content not included)... Normal [facility] CNOVon 01-01-2025 CNOV Office Visit (UCWSTR ) -- VIC BALLESTEROS ([id number]) 1965 M Date Time Provider Department 01/01/25 12:15 PM ANNIE DONATO During your visit today, we recorded the following information about you: Temperature Pulse Respiration Blood pressure 97.2 degrees 60/minute 16/minute 120/80 Weight 121.2 kg Annie Donato APRN.LEATHER SORTER 01/01/2025 1:04 PM Signed This note was created using NoteWriter. Subjective Vic Ballesteros is a 59 year old male. 59 year old male with PMH HTN, hyperlipidemia, GERD, DDD, and adjustment disorder presents for rib pain Acute onset 6 days ago Left rib pain Endorses that he was bending over a milk crate On his knees Endorses that he pinched himself while bent over +pain +tenderness Denies CP Denies dyspnea Denies abdominal pain Denies N/V/D Denies tobacco usage Has used Tylenol with mild relief The history is provided by the patient. No speech and language clinician was used. Musculoskeletal Problem This is a new problem. The current episode started in the past 7 days. The problem occurs constantly. The problem has been unchanged. Pertinent negatives include no abdominal pain, anorexia, arthralgias, change in bowel habit, chest pain, chills, congestion, coughing, diaphoresis, fatigue, fever, headaches, joint swelling, myalgias, nausea, neck pain, numbness, rash, sore throat, swollen glands, urinary symptoms, vertigo, visual change, vomiting or weakness. Nothing aggravates the symptoms. He has tried acetaminophen for the symptoms. The treatment provided no relief. PAST MEDICAL HISTORY Diagnosis Date ACNE NEC 10/13/2006 Anxiety 01/16/2023 Depression Dyslipidemia Essential hypertension 01/16/2023 GERD (gastroesophageal reflux disease) 01/16/2023 History of traumatic brain injury Hypogonadism male 10/30/1988 Left knee pain Obesity AMANDA (obstructive sleep apnea) 10/30/2005 cpap PMH - PAST MEDICAL HISTORY OF L 5 nerve injury workman comp PMH - PAST MEDICAL HISTORY OF 10/30/1988 Industrial accident fall Stroke (HCC) Thrombosed external hemorrhoid 10/26/2011 Unspecified site of spinal cord injury without evidence of spinal bone injury 01/25/2013 PAST SURGICAL HISTORY Procedure Laterality Date ABDOMINAL SURGERY HX COLONOSCOPY FLX DX W/COLLJ SPEC WHEN PFRMD 04/17/2012 repeat 10 years COLONOSCOPY SCREENING 06/09/2022 10 year f/u colonoscopy FRACTURE SURGERY JOINT REPLACEMENT HX LAPAROSCOPY SURG CHOLECYSTECTOMY 08/01/2017 Cholecystectomy, lap PAST SURGICAL HISTORY OF Right 1988 wrist fracture after work accident, states still has hardware PAST SURGICAL HISTORY OF 1988 exploratory after accident, opened from pubic bone to breastbone REPAIR NASAL SEPTUM DEFECT RPR 1ST INCAL/VNT HERNIA INCARCERATED 10/28/2019 TOTAL HIP REPLACEMENT Left 2021 VASECTOMY UNI/BI SPX W/POSTOP SEMEN EXAMS Bilateral 1999 ALLERGIES Penicillin G, Sulfa (Sulfonamide Antibiotics), Celebrex [Celecoxib], and Lisinopril MEDICATIONS amphetamine-dextroamphetam ine XR (ADDERALL XR) 10 mg capsule Take 10 mg by mouth once daily. buPROPion (WELLBUTRIN) 75 mg tablet Take 75 mg by mouth two times a day. budesonide-formoterol (SYMBICORT) 80-4.5 mcg/actuation inhaler Inhale 2 Puffs as instructed two times a day. pantoprazole DR (PROTONIX) 40 mg tablet Take 1 tablet by mouth once daily. testosterone (ANDROGEL) 50 mg / 5 g (1%) Apply 1 packet to affected area every other day. Alternating with 25 mg. Tadalafil (CIALIS) 20 mg tablet TAKE 1 TABLET BY MOUTH 1-2 HOURS BEFORE SEXUAL INTRACOURSE NEEDED albuterol HFA (VENTOLIN HFA) 90 mcg/actuation inhaler Inhale 2 Puffs as instructed every 4 hours as needed for wheezing/shortness of breath. acetaminophen (TYLENOL EXTRA STRENGTH) 500 mg tablet Take 2 tablets by mouth every 8 hours as needed for pain. traMADol (ULTRAM) 50 mg tablet albuterol (PROVENTIL) 2.5 mg /3 mL (0.083 %) nebulizer solution Use 3 mL via nebulizer every 6 hours as needed for wheezing/shortness of breath. Use over 5-15minutes. losartan (COZAAR) 50 mg tablet Take 1 tablet by mouth once daily. CPAP Initiate Auto PAP @ 5-20 cm of water with humidification. Mask (per patient preference) optional chin strap (if indicated) , filters, tubing, humidifier and lifetime supplies. Current machine is 7 years old and needs replaced. Insurance if refusing titration sleep study. clonazePAM (KLONOPIN) 1 mg tablet TAKE 1/2 TABLET THREE TIMES A DAY NEEDED predniSONE (DELTASONE) 10 mg tablet Take 4 tabs daily for 3 days, then 2 tabs daily for 3 days, then 1 tab daily for 3 days with food. testosterone (ANDROGEL) 25 mg/ 2.5g (1%) Apply 1 Packet to affected area every other day for 180 days. Alernating witth 50 mg qod CPAP/BIPAP/OTHER autoCPAP 5-20 cmH2O DME [facility] lidocaine 4 % gel Apply 1 Tube to affected area once daily. FAMILY HISTORY Problem Re (more content not included)... Normal [facility] XR RIB/CHST 3V AP RIB/OBL/CH ST [facility] 01-01-2025 XR RIB/CHST 3V AP RIB/OBL/CHST L * * *Final Report* * * DATE OF EXAM: Jan 01 2025 12:34PM [id number] - XR RIB/CHST 3V AP RIB/OBL/CHST L / PROCEDURE REASON: Rib pain on left side * * * * Physician Interpretation * * * * Study:Chest and 80 1625 ribs: HISTORY: Indication: Rib pain on left side Left lateral lower rib pain x 5 days. Pain happened when he was bending over and milk crate TECHNIQUE: Images obtained: XR RIB/CHST 3V AP RIB/OBL/CHST L Comparison: Chest x-ray 07/17/2024 Result: Findings: Chest x-ray: PA view of the chest shows no acute pathology in the heart and lungs.. RIBS: No rib fractures are seen. IMPRESSION: Negative exam Milk Hauler: PSCB Transcribe Date/Time: Jan 01 2025 12:46P Dictated by : JÚNIOR GARCIA DO This examination was interpreted and the report reviewed and electronically signed by: JÚNIOR GARCIA DO on Jan 01 2025 12:48PM EST [id number] Normal [facility] XR Ribs - left Views and Brandi st PAon 01-01-2025 IMPRESSION: Negative exam Milk Hauler: PSCB Transcribe Date/Time: Jan 01 2025 12:46P Dictated by : JÚNIOR GARCIA DO This examination was interpreted and the report reviewed and electronically signed by: JÚNIOR GARCIA DO on Jan 01 2025 12:48PM EST DIVISION OF RADIOLOGY * * *Final Report* * * DATE OF EXAM: Jan 01 2025 12:34PM [id number] - XR RIB/CHST 3V AP RIB/OBL/CHST L / PROCEDURE REASON: Rib pain on left side * * * * Physician Interpretation * * * * Study:Chest and 80 1625 ribs: HISTORY: Indication: Rib pain on left side Left lateral lower rib pain x 5 days. Pain happened when he was bending over and milk crate TECHNIQUE: Images obtained: XR RIB/CHST 3V AP RIB/OBL/CHST L Comparison: Chest x-ray 07/17/2024 Result: Findings: Chest x-ray: PA view of the chest shows no acute pathology in the heart and lungs.. RIBS: No rib fractures are seen. DIVISION OF RADIOLOGY Provider, [facility] - 01/01/2025 * * *Final Report* * * DATE OF EXAM: Jan 01 2025 12:34PM WOX [id number] - XR RIB/CHST 3V AP RIB/OBL/CHST L / PROCEDURE REASON: Rib pain on left side * * * * Physician Interpretation * * * * Study:Chest and 80 1625 ribs: HISTORY: Indication: Rib pain on left side Left lateral lower rib pain x 5 days. Pain happened when he was bending over and milk crate TECHNIQUE: Images obtained: XR RIB/CHST 3V AP RIB/OBL/CHST L Comparison: Chest x-ray 07/17/2024 Result: Findings: Chest x-ray: PA view of the chest shows no acute pathology in the heart and lungs.. RIBS: No rib fractures are seen. IMPRESSION IMPRESSION: Negative exam Milk Hauler: PSCB Transcribe Date/Time: Jan 01 2025 12:46P Dictated by : JÚNIOR GARCIA DO This examination was interpreted and the report reviewed and electronically signed by: JÚNIOR GARCIA DO on Jan 01 2025 12:48PM EST [facility] Radiology Study observation (narrative) [facility] XR Ribs - left Views and Brandi st PAOrdered By: Ccf Provider on 01-01-2025 [facility] 25(OH)D3 SerPl-mCncon 2024 25-hydroxyvitamin D3 [Mass/Vol] 64.3 ng/mL Normal 31.0-80.0 [facility] Comment on above: Order Comment: Speci men Type: BLOOD SPECIMENOrdering Facility: [facility] Address: [address] [place] [address] Performed By: #### 1 989-3 ####[facility] LABCLIA [id number] [address] [place] [address] [place] CBC W Auto Differential pane l (Bld)on 12-18-2024 Basophils (Bld) [#/Vol] 0.06 10*3/uL [facility] Basophils/100 WBC (Bld) 0.9 % [facility] Differential cell count method Nom (Bld) Auto [facility] Eosinophils (Bld) [#/Vol] 0.25 10*3/uL [facility] Eosinophils/100 WBC (Bld) 3.8 % [facility] Erythrocyte distribution width (RBC) [Ratio] 12.5 % 11.5 - 15.0 % [facility] Hematocrit (Bld) [Volume fraction] 50.4 % 39.0 - 51.0 % [facility] Hemoglobin (Bld) [Mass/Vol] 17.1 g/dL High 13.0 - 17.0 g/dL [facility] Immature granulocytes (Bld) [#/Vol] [facility] Immature granulocytes/100 WBC (Bld) 0.2 % [facility] Interpretation and review of laboratory results Abnormal [facility] Lymphocytes (Bld) [#/Vol] 2.57 10*3/uL [facility] Lymphocytes/100 WBC (Bld) 39.2 % [facility] MCH (RBC) [Entitic mass] 31.3 pg 26.0 - 34.0 pg [facility] MCHC (RBC) [Mass/Vol] 33.9 g/dL 30.5 - 36.0 g/dL [facility] MCV (RBC) [Entitic vol] 92.1 fL 80.0 - 100.0 fL [facility] Monocytes (Bld) [#/Vol] 0.53 10*3/uL [facility] Monocytes/100 WBC (Bld) 8.1 % [facility] Neutrophils (Bld) [#/Vol] 3.13 10*3/uL [facility] Neutrophils/100 WBC (Bld) 47.8 % [facility] Nucleated RBC (Bld) [#/Vol] NINF [facility] Nucleated RBC/100 WBC (Bld) [Ratio] 0 % /100 WBC [facility] Platelet mean volume (Bld) [Entitic vol] 10.5 fL 9.0 - 12.7 fL [facility] Platelets (Bld) [#/Vol] 191 10*3/uL [facility] RBC (Bld) [#/Vol] 5.47 10*6/uL 4.20 - 6.0 0 m/uL [facility] WBC (Bld) [#/Vol] 6.55 10*3/uL [facility] Basophils (Bld) [#/Vol] 0.06 10*3/uL Normal <0.11 [facility] Comment on above: Order Comment: Speci men Type: BLOOD SPECIMENOrdering Facility: [facility] Address: [address] [place] [address] Performed By: #### 5 7021-8 ####[facility] LABIA [id number] [place] [address] [place] Basophils/100 WBC (Bld) 0.9 % Normal [facility] Comment on above: Order Comment: Speci men Type: BLOOD SPECIMENOrdering Facility: [facility] Address: [address] [place] [address] Performed By: #### 5 7021-8 ####[facility] LABCLIA [id number] [place] [address] [place] Differential cell count method Nom (Bld) Auto Normal [facility] Comment on above: Order Comment: Speci men Type: BLOOD SPECIMENOrdering Facility: [facility] Address: [address] [place] [address] Performed By: #### 5 7021-8 ####[facility] LABIA [id number] [place] [address] [place] Eosinophils (Bld) [#/Vol] 0.25 10*3/uL Normal <0.46 [facility] Comment on above: Order Comment: Speci men Type: BLOOD SPECIMENOrdering Facility: [facility] Address: [address] [place] [address] Performed By: #### 5 7021-8 ####[facility] LABCLIA [id number] [place] [address] [place] Eosinophils/100 WBC (Bld) 3.8 % Normal [facility] Comment on above: Order Comment: Speci men Type: BLOOD SPECIMENOrdering Facility: [facility] Address: [address] [place] [address] Performed By: #### 5 7021-8 ####[facility] LABCLIA [id number] [place] [address] [place] Erythrocyte distribution width (RBC) [Ratio] 12.5 % Normal 11.5-15.0 [facility] Comment on above: Order Comment: Speci men Type: BLOOD SPECIMENOrdering Facility: [facility] Address: [address] [place] [address] Performed By: #### 5 7021-8 ####[facility] LABCLIA [id number] [place] [address] [place] Hematocrit (Bld) [Volume fraction] 50.4 % Normal 39.0-51.0 [facility] Comment on above: Order Comment: Speci men Type: BLOOD SPECIMENOrdering Facility: [facility] Address: [address] [place] [address] Performed By: #### 5 7021-8 ####[facility] LABCLIA [id number] [place] [address] [place] Hemoglobin (Bld) [Mass/Vol] 17.1 g/dL High 13.0-17.0 [facility] Comment on above: Order Comment: Speci men Type: BLOOD SPECIMENOrdering Facility: [facility] Address: [address] [place] [address] Performed By: #### 5 7021-8 ####[facility] LABCLIA [id number] [place] [address] [place] Immature granulocytes (Bld) [#/Vol] 10*3/uL Normal <0.10 [facility] Comment on above: Order Comment: Speci men Type: BLOOD SPECIMENOrdering Facility: [facility] Address: [address] [place] [address] Performed By: #### 5 7021-8 ####[facility] LABCLIA [id number] [place] [address] [place] Immature granulocytes/100 WBC (Bld) 0.2 % Normal [facility] Comment on above: Order Comment: Speci men Type: BLOOD SPECIMENOrdering Facility: [facility] Address: [address] [place] [address] Performed By: #### 5 7021-8 ####[facility] LABCLIA [id number] [place] [address] [place] Lymphocytes (Bld) [#/Vol] 2.57 10*3/uL Normal 1.00-4.00 [facility] Comment on above: Order Comment: Speci men Type: BLOOD SPECIMENOrdering Facility: [facility] Address: [address] [place] [address] Performed By: #### 5 7021-8 ####[facility] LABCLIA [id number] [place] [address] [place] Lymphocytes/100 WBC (Bld) 39.2 % Normal [facility] Comment on above: Order Comment: Speci men Type: BLOOD SPECIMENOrdering Facility: [facility] Address: [address] [place] [address] Performed By: #### 5 7021-8 ####[facility] LABCLIA [id number] [place] [address] [place] MCH (RBC) [Entitic mass] 31.3 pg Normal 26.0-34.0 [facility] Comment on above: Order Comment: Speci men Type: BLOOD SPECIMENOrdering Facility: [facility] Address: [address] [place] [address] Performed By: #### 5 7021-8 ####[facility] LABIA [id number] [place] [address] [place] MCHC (RBC) [Mass/Vol] 33.9 g/dL Normal 30.5-36.0 [facility] Comment on above: Order Comment: Speci men Type: BLOOD SPECIMENOrdering Facility: [facility] Address: [address] [place] [address] Performed By: #### 5 7021-8 ####[facility] LABCLIA [id number] [place] [address] [place] MCV (RBC) [Entitic vol] 92.1 fL Normal 80.0-100.0 [facility] Comment on above: Order Comment: Speci men Type: BLOOD SPECIMENOrdering Facility: [facility] Address: [address] [place] [address] Performed By: #### 5 7021-8 ####[facility] LABIA [id number] [place] [address] [place] Monocytes (Bld) [#/Vol] 0.53 10*3/uL Normal <0.87 [facility] Comment on above: Order Comment: Speci men Type: BLOOD SPECIMENOrdering Facility: [facility] Address: [address] [place] [address] Performed By: #### 5 7021-8 ####[facility] LABCLIA [id number] [place] [address] [place] Monocytes/100 WBC (Bld) 8.1 % Normal [facility] Comment on above: Order Comment: Speci men Type: BLOOD SPECIMENOrdering Facility: [facility] Address: [address] [place] [address] Performed By: #### 5 7021-8 ####[facility] LABCLIA [id number] [place] [address] [place] Neutrophils (Bld) [#/Vol] 3.13 10*3/uL Normal 1.45-7.50 [facility] Comment on above: Order Comment: Speci men Type: BLOOD SPECIMENOrdering Facility: [facility] Address: [address] [place] [address] Performed By: #### 5 7021-8 ####[facility] LABCLIA [id number] [place] [address] [place] Neutrophils/100 WBC (Bld) 47.8 % Normal [facility] Comment on above: Order Comment: Speci men Type: BLOOD SPECIMENOrdering Facility: [facility] Address: [address] [place] [address] Performed By: #### 5 7021-8 ####[facility] LABCLIA [id number] [place] [address] [place] Nucleated RBC (Bld) [#/Vol] 10*3/uL Normal <0.01 [facility] Comment on above: Order Comment: Speci men Type: BLOOD SPECIMENOrdering Facility: [facility] Address: [address] [place] [address] Performed By: #### 5 7021-8 ####[facility] LABCLIA [id number] [place] [address] [place] Nucleated RBC/100 WBC (Bld) [Ratio] 0.0 /100 WBC Normal [facility] Comment on above: Order Comment: Speci men Type: BLOOD SPECIMENOrdering Facility: [facility] Address: [address] [place] [address] Performed By: #### 5 7021-8 ####[facility] LABCLIA [id number] [place] [address] [place] Platelet mean volume (Bld) [Entitic vol] 10.5 fL Normal 9.0-12.7 [facility] Comment on above: Order Comment: Speci men Type: BLOOD SPECIMENOrdering Facility: [facility] Address: [address] [place] [address] Performed By: #### 5 7021-8 ####[facility] LABIA [id number] [place] [address] [place] Platelets (Bld) [#/Vol] 191 10*3/uL Normal 150-400 [facility] Comment on above: Order Comment: Speci men Type: BLOOD SPECIMENOrdering Facility: [facility] Address: [address] [place] [address] Performed By: #### 5 7021-8 ####[facility] LABIA [id number] [place] [address] [place] RBC (Bld) [#/Vol] 5.47 10*6/uL Normal 4.20-6.00 [facility] Comment on above: Order Comment: Speci men Type: BLOOD SPECIMENOrdering Facility: [facility] Address: [address] [place] [address] Performed By: #### 5 7021-8 ####[facility] LABIA [id number] [place] [address] [place] WBC (Bld) [#/Vol] 6.55 10*3/uL Normal 3.70-11.00 [facility] Comment on above: Order Comment: Speci men Type: BLOOD SPECIMENOrdering Facility: [facility] Address: [address] [place] [address] Performed By: #### 5 7021-8 ####[facility] LABIA [id number] [place] [address] [place] CNOVon 12-18-2024 CNOV [facility] -- VIC BALLESTEROS ([id number]) 1965 M Date Time Provider Department 12/18/24 9:20 AM MYAH ARTEAGA [facility] During your visit today, we recorded the following information about you: Pulse Blood pressure Weight 62/minute 124/78 121.6 kg Myah Arteaga MD 12/18/2024 10:44 AM Signed Patient presents with: 6 Month Exam HPI: Patient presents today for office visit for follow up. HTN: Patient is compliant with meds Yes. Bp is well controlled. Monitors bp at home: Yes. Denies side effects: Yes. Chest pain: No. Dyspnea: No. Edema: No. Palpitations: No. Syncope: No. Headache: No. Dizziness: No. Still with some high pitched wheezing since COVID. Not using inhalers though. Offered to repeat pfts Has seen pulmonary. Seeing nephrology for proteinuria. Hypogonadism: continues on meds. Feels very good on current dose. No shaking Slight irritability in am. We adjusted it down. Since it was high. AMANDA:benefiting from its use. Follows with pain management and psych. Using sleep apnea machine. Benefiting from its use. See previous mri: ? 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 No adjacent intramedullary signal abnormality. 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 No other mass or pathologic intradural enhancement. Mild degenerative changes of the lumbar spine. Normal morphology and signal intensity of the remaining visualized thoracic cord Offered to have him see neurosurgery or consider follow up. He will consider. Has not changed in years. MEDICATIONS: Current Outpatient Medications Medication Sig amphetamine-dextroamphetam ine XR (ADDERALL XR) 10 mg capsule Take 10 mg by mouth once daily. buPROPion (WELLBUTRIN) 75 mg tablet Take 75 mg by mouth two times a day. pantoprazole DR (PROTONIX) 40 mg tablet Take 1 tablet by mouth once daily. testosterone (ANDROGEL) 50 mg / 5 g (1%) Apply 1 packet to affected area every other day. Alternating with 25 mg. ergocalciferol 50,000 unit capsule (VITAMIN D2, DRISDOL) Take 1 capsule by mouth one time a week. Tadalafil (CIALIS) 20 mg tablet TAKE 1 TABLET BY MOUTH 1-2 HOURS BEFORE SEXUAL INTRACOURSE NEEDED losartan (COZAAR) 50 mg tablet Take 1 tablet by mouth once daily. testosterone (ANDROGEL) 25 mg/ 2.5g (1%) Apply 1 Packet to affected area every other day for 180 days. Alernating witth 50 mg qod CPAP Initiate Auto PAP @ 5-20 cm of water with humidification. Mask (per patient preference) optional chin strap (if indicated) , filters, tubing, humidifier and lifetime supplies. Current machine is 7 years old and needs replaced. Insurance if refusing titration sleep study. budesonide-formoterol (SYMBICORT) 80-4.5 mcg/actuation inhaler Inhale 2 Puffs as instructed two times a day. albuterol HFA (VENTOLIN HFA) 90 mcg/actuation inhaler Inhale 2 Puffs as instructed every 4 hours as needed for wheezing/shortness of breath. acetaminophen (TYLENOL EXTRA STRENGTH) 500 mg tablet Take 2 tablets by mouth every 8 hours as needed for pain. traMADol (ULTRAM) 50 mg tablet albuterol (PROVENTIL) 2.5 mg /3 mL (0.083 %) nebulizer solution Use 3 mL via nebulizer every 6 hours as needed for wheezing/shortness of breath. Use over 5-15minutes. CPAP/BIPAP/OTHER autoCPAP 5-20 cmH2O DME [employer] clonazePAM (KLONOPIN) 1 mg tablet TAKE 1/2 TABLET THREE TIMES A DAY NEEDED lidocaine 4 % gel Apply 1 Tube to affected area once daily. No current facility-administered medications for this visit. ALLERGIES: ALLERGIES Allergen Reactions Penicillin G Hives Sulfa (Sulfonamide * Hives Celebrex [Celecoxib] Rash Lisinopril Intolerance Cough PAST MEDICAL HISTORY Diagnosis Date ACNE NEC 10/13/2006 Anxiety 01/16/2023 Depression Dyslipidemia Essential hypertension 01/16/2023 GERD (gastroesophageal reflux disease) 01/16/2023 History of traumatic brain injury Hypogonadism male 10/30/1988 Left knee pain Obesity AMANDA (obstructive sleep apnea) 10/30/2005 cpap PMH - PAST MEDICAL HISTORY OF L 5 nerve injury workman comp PMH - PAST MEDICAL HISTORY OF 10/30/1988 Industrial accident fall Stroke (HCC) Thrombosed external hemorrhoid 10/26/2011 Unspecified site of spinal cord injury without evidence of spinal bone injury 01/25/2013 PAST SURGICAL HISTORY Procedure Laterality Date ABDOMINAL SURGERY HX COLONOSCOPY FLX DX W/COLLJ SPEC WHEN PFRMD 04/17/2012 repeat 10 years COLONOSCOPY SCREENING 06/09/2022 10 year f/u colonoscopy FRACTURE SURGERY JOINT REPLACEMENT HX LAPAROSCOPY SURG CHOLECYSTECTOMY 08/01/2017 Cholecystectomy, lap PAST SURGICAL HISTORY OF Right 1989 wrist fracture after w (more content not included)... Normal [facility] Comprehensive metabolic 2000 panelon 12-18-2024 Albumin [Mass/Vol] 4.6 g/dL Normal 3.9-4.9 [facility] Comment on above: Order Comment: Speci men Type: BLOOD SPECIMENOrdering Facility: [facility] Address: [address] [place] [address] Performed By: #### 3 016-3, 85382-4, 277-1, 8 ####[facility] LABIA [id number] [place] [address] [place] ALP [Catalytic activity/Vol] 66 U/L Normal 38-113 [facility] Comment on above: Order Comment: Speci men Type: BLOOD SPECIMENOrdering Facility: [facility] Address: [address] [place] [address] Performed By: #### 3 016-3, 52937-5, 277-1, 2988 ####[facility] LABCLIA [id number] [place] [address] [place] ALT [Catalytic activity/Vol] 23 U/L Normal 10-54 [facility] Comment on above: Order Comment: Speci men Type: BLOOD SPECIMENOrdering Facility: [facility] Address: [address] [place] [address] Performed By: #### 3 016-3, 92239-0, 2777-1, 298-8 ####[facility] LABCLIA [id number] [place] [address] [place] Anion gap [Moles/Vol] 9 mmol/L Normal 8-15 [facility] Comment on above: Order Comment: Speci men Type: BLOOD SPECIMENOrdering Facility: [facility] Address: [address] [place] [address] Performed By: #### 3 016-3, 19208-5, 277-1, 298-8 ####[facility] LABCLIA [id number] [place] [address] [place] AST [Catalytic activity/Vol] 26 U/L Normal 14-40 [facility] Comment on above: Order Comment: Speci men Type: BLOOD SPECIMENOrdering Facility: [facility] Address: [address] [place] [address] Performed By: #### 3 016-3, 21814-3, 2777-1, 2988 ####[facility] LABCLIA [id number] [place] [address] [place] Bilirubin [Mass/Vol] 0.4 mg/dL Normal 0.2-1.3 [facility] Comment on above: Order Comment: Speci men Type: BLOOD SPECIMENOrdering Facility: [facility] Address: [address] [place] [address] Performed By: #### 3 016-3, 82327-8, 2777-1, 298-8 ####[facility] LABCLIA [id number] [place] [address] [place] Calcium [Mass/Vol] 10.2 mg/dL Normal 8.5-10.2 [facility] Comment on above: Order Comment: Speci men Type: BLOOD SPECIMENOrdering Facility: [facility] Address: [address] [place] [address] Performed By: #### 3 016-3, 03846-2, 2777-1, 298-8 ####[facility] LABCLIA [id number] [place] [address] [place] Chloride [Moles/Vol] 100 mmol/L Normal 98-107 [facility] Comment on above: Order Comment: Speci men Type: BLOOD SPECIMENOrdering Facility: [facility] Address: [address] [place] [address] Performed By: #### 3 016-3, 81377-7, 2777-1, 298-8 ####[facility] LABIA [id number] [place] [address] [place] CO2 [Moles/Vol] 28 mmol/L Normal 22-30 [facility] Comment on above: Order Comment: Speci men Type: BLOOD SPECIMENOrdering Facility: [facility] Address: [address] [place] [address] Performed By: #### 3 016-3, 50893-8, 2777-1, 298-8 ####[facility] LABIA [id number] [place] [address] [place] Creatinine [Mass/Vol] 0.95 mg/dL Normal 0.73-1.22 [facility] Comment on above: Order Comment: Speci men Type: BLOOD SPECIMENOrdering Facility: [facility] Address: [address] [place] [address] Performed By: #### 3 016-3, 11780-3, 2777-1, 298-8 ####[facility] LABIA [id number] [place] [address] [place] Creatinine and Glomerular filtration rate.predicted panel (S/P/Bld) 92 mL/min/1.73m??? Normal >=60 [facility] Comment on above: Order Comment: Speci men Type: BLOOD SPECIMENOrdering Facility: [facility] Address: [address] [place] [address] Result Comment: Shara mated Glomerular Filtration Rate (eGFR) is calculated using the 2020 CKD-EPI creatinine equation. This equation utilizes serum creatinine, sex, and age as parameters. The creatinine assay has traceable calibration to isotope dilution-mass spectrometry. Refer to KDIGO guidelines for clinical interpretation. In patients with unstable renal function, e.g. those with acute kidney injury, the eGFR may not accurately reflect actual GFR. Performed By: #### 3 016-3, 97459-6, 2776-1, 2985-8 ####[facility] LABIA [id number] [place] [address] [place] Glucose [Mass/Vol] 86 mg/dL Normal 74-99 [facility] Comment on above: Order Comment: Speci men Type: BLOOD SPECIMENOrdering Facility: [facility] Address: [address] [place] [address] Result Comment: The [place] [employer] (ADA) provides guidance for cutoff values for fasting glucose and random glucose. The ADA defines fasting as no caloric intake for at least 8 hours. Fasting plasma glucose results between 100 to 125 mg/dL indicate increased risk for diabetes (prediabetes). Fasting plasma glucose results greater than or equal to 126 mg/dL meet the criteria for diagnosis of diabetes. In the absence of unequivocal hyperglycemia, results should be confirmed by repeat testing. In a patient with classic symptoms of hyperglycemia or hyperglycemic crisis, random plasma glucose results greater than or equal to 200 mg/dL meet the criteria for diagnosis of diabetes. Reference: Standards of Medical Care in Diabetes 2016, [place] [employer]. Diabetes Care. 2016.39(Suppl 1). Performed By: #### 3 016-3, 96693-4, 277-1, 8 ####[facility] LABIA [id number] [place] [id number] [place] Potassium [Moles/Vol] 4.9 mmol/L Normal 3.7-5.1 [facility] Comment on above: Order Comment: Speci men Type: BLOOD SPECIMENOrdering Facility: [facility] Address: [address] [place] [address] Performed By: #### 3 016-3, 40676-2, 2777-1, 298-8 ####[facility] LABIA [id number] [place] [address] [place] Protein [Mass/Vol] 7.6 g/dL Normal 6.3-8.0 [facility] Comment on above: Order Comment: Speci men Type: BLOOD SPECIMENOrdering Facility: [facility] Address: [address] [place] [address] Performed By: #### 3 016-3, 15089-8, 2777-1, 298-8 ####[facility] LABIA [id number] [place] [address] [place] Sodium [Moles/Vol] 137 mmol/L Normal 136-144 [facility] Comment on above: Order Comment: Speci men Type: BLOOD SPECIMENOrdering Facility: [facility] Address: [address] [place] [address] Performed By: #### 3 016-3, 59190-8, 2777-1, 298-8 ####[facility] LABIA [id number] [place] [address] [place] Urea nitrogen [Mass/Vol] 15 mg/dL Normal 9-24 [facility] Comment on above: Order Comment: Speci men Type: BLOOD SPECIMENOrdering Facility: [facility] Address: [address] [place] [address] Performed By: #### 3 016-3, 59108-2, 2777-1, 298-8 ####[facility] LABIA [id number] [place] [address] [place] PSA/PROSTATE SPECIFIC ANTIGE N SCREENINGon 12-18-2024 Prostate specific Ag [Mass/Vol] 0.36 ng/mL Normal <2.60 [facility] Comment on above: Order Comment: Speci men Type: BLOOD SPECIMENOrdering Facility: [facility] Address: [address] [place] [address] Result Comment: Tota l PSA test methodology used is the Electrochemiluminescence Immunoassay by [employer]. Total PSA values by differing methodologies cannot be interchanged. Performed By: #### P SAS1 ####[facility] LABCLIA [id number] [place] [address] [place] Phosphate SerPl-mCncon 12-18 Phosphate [Mass/Vol] 3.6 mg/dL Normal 2.7-4.8 [facility] Comment on above: Order Comment: Speci men Type: BLOOD SPECIMENOrdering Facility: [facility] Address: [address] [place] [address] Performed By: #### 3 016-3, 86522-3, 2777-1, 2986-8 ####[facility] LABCLIA [id number] [place] [address] [place] Prot/Creat Uron 12-18-2024 Protein/Creatinine (U) [Mass ratio] 0.25 mg/mg High <0.15 [facility] Comment on above: Order Comment: Speci men Type: URINE SPECIMENOrdering Facility: [facility] Address: [address] [place] [address] Result Comment: Adul t Proteinuria Categories: <0.15 mg/mg is considered normal to mildly increased 0.15 - 0.50 mg/mg is considered moderately increased >0.50 mg/mg is considered severely increased KDIGO. (2013). KDIGO 2012 Clinical Practice Guideline for the Evaluation and Management of Chronic Kidney Disease. Official Journal of the International Society of Nephrology, 3(1), 1-150. Performed By: #### 2 890-2 ####[facility] LABCLIA [id number] [place] [address] [place] Protein/Creatinine (U) [Mass ratio]on 12-18-2024 Creatinine (U) [Mass/Vol] 47.3 mg/dL Normal 20.0-300.0 [facility] Comment on above: Order Comment: Speci men Type: URINE SPECIMENOrdering Facility: [facility] Address: [address] [place] [address] Performed By: #### 2 890-2 ####[facility] LABCLIA [id number] [place] [address] [place] Protein (U) [Mass/Vol] 12 mg/dL Normal 0-20 [facility] Comment on above: Order Comment: Speci men Type: URINE SPECIMENOrdering Facility: [facility] Address: [address] [place] [address] Performed By: #### 2 890-2 ####[facility] [id number] [place] [address] [place] TSH SerPl-aCncon 12-18-2024 TSH Qn 4.300 m[IU]/L High 0.270-4.200 [facility] Comment on above: Order Comment: Speci men Type: BLOOD SPECIMENOrdering Facility: [facility] Address: [address] [place] [address] Performed By: #### 3 016-3, 98171-0, 2771, 8 ####[facility] LABCLIA [id number] [place] [address] [place] Testost SerPl-mCncon 025 Testosterone [Mass/Vol] 407 ng/dL Normal 193-824 [facility] Comment on above: Order Comment: Speci men Type: BLOOD SPECIMENOrdering Facility: [facility] Address: [address] [place] [address] Result Comment: A te stosterone level in the 193-320 ng/dL range with associated clinical symptoms is considered low and may indicate hypogonadism (from NEJM 2010 363:123-135). Results >320 ng/dL are considered normal. Performed By: #### 3 016-3, 49795-6, 2777-1, 298-8 ####[facility] LABCLIA [id number] [address] [address] [place] [facility] CNOVon 10-15-2024 CNOV Office Visit ([facility] ) -- VIC BALLESTEROS ([id number]) 1965 M Date Time Provider Department 10/15/24 11:30 AM STRESS NUCLEAR LAB [facility] During your visit today, we recorded the following information about you: Referring Provider: LAYLA LEWIS [[id number]] Allergies As of Date: 10/15/2024 Noted Allergy Reaction PENICILLIN G 04/27/2005 4 - Hives SULFA (SULFONAMIDE ANTIBIOTICS) 04/27/2005 4 - Hives CELEBREX (CELECOXIB) 11/11/2009 2 - Rash LISINOPRIL 04/23/2024 5 - Intolerance Comments: Cough Date Reviewed: 10/03/2024 Reviewed by: Mindy Burrell, BRIAN - Fully Assessed Primary Visit Diagnosis:Coronary artery calcification [I25.10] Order(s):[] regadenoson 0.4 mg injection (LEXISCAN)Disp: Rfl: Prescriptions as of 10/15/2024 - amphetamine-dextroamphetam ine XR (ADDERALL XR) 10 mg capsule Take 10 mg by mouth once daily. - buPROPion (WELLBUTRIN) 75 mg tablet Take 75 mg by mouth two times a day. - budesonide-formoterol (SYMBICORT) 80-4.5 mcg/actuation inhaler Inhale 2 Puffs as instructed two times a day. - pantoprazole DR (PROTONIX) 40 mg tablet Take 1 tablet by mouth once daily. - testosterone (ANDROGEL) 50 mg / 5 g (1%) Apply 1 packet to affected area every other day. Alternating with 25 mg. - ergocalciferol 50,000 unit capsule (VITAMIN D2, DRISDOL) Take 1 capsule by mouth one time a week. - Tadalafil (CIALIS) 20 mg tablet TAKE 1 TABLET BY MOUTH 1-2 HOURS BEFORE SEXUAL INTRACOURSE NEEDED - albuterol HFA (VENTOLIN HFA) 90 mcg/actuation inhaler Inhale 2 Puffs as instructed every 4 hours as needed for wheezing/shortness of breath. - acetaminophen (TYLENOL EXTRA STRENGTH) 500 mg tablet Take 2 tablets by mouth every 8 hours as needed for pain. - traMADol (ULTRAM) 50 mg tablet - albuterol (PROVENTIL) 2.5 mg /3 mL (0.083 %) nebulizer solution Use 3 mL via nebulizer every 6 hours as needed for wheezing/shortness of breath. Use over 5-15minutes. - losartan (COZAAR) 50 mg tablet Take 1 tablet by mouth once daily. - testosterone (ANDROGEL) 25 mg/ 2.5g (1%) Apply 1 Packet to affected area every other day for 180 days. Alernating witth 50 mg qod - CPAP/BIPAP/OTHER autoCPAP 5-20 cmH2O DME [employer] - CPAP Initiate Auto PAP @ 5-20 cm of water with humidification. Mask (per patient preference) optional chin strap (if indicated) , filters, tubing, humidifier and lifetime supplies. Current machine is 7 years old and needs replaced. Insurance if refusing titration sleep study. - clonazePAM (KLONOPIN) 1 mg tablet TAKE 1/2 TABLET THREE TIMES A DAY NEEDED - lidocaine 4 % gel Apply 1 Tube to affected area once daily. 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] 01/13/2011 Unspecified constipation [K59.00] 04/17/2012 08/06/2015 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.9] 05/01/2013 03/20/2017 AMANDA (obstructive sleep apnea) [G47.33] 11/26/2014 Morbid obesity (HCC) [E66.01] 08/06/2015 Right foot drop [M21.371] 08/06/2015 Benign prostatic hyperplasia with lower urinary*01/18/2016 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] 07/20/2016 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*07/29/2016 DDD (degenerative disc disease), lumbar [M51.36*09/14/2016 RUQ pain [R10.11] 07/31/2017 08/23/2017 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/2019 TBI (traumatic brain injury) ([facility]) [S06.9XAA] 10/25/2021 Primary osteoarthritis of left hip [M16.12] 10/25/2021 History of palpitations [Z87.898] 10/25/2021 Red blood cell antibody positive [R76.8] 10/28/2021 Hepatitis C antibody positive in blood [R76.8] 03/29/2022 Sensorineural hearing loss (SNHL) of both ears *12/13/2022 Subjective tinnitus of both ears [H93.13] 12/13/2022 Essential hypertension [I10] 01/16/2023 GERD (gastroesophageal reflux disease) [K21.9] 01/16/2023 Depression [F32.A] 01/16/2023 Anxiety [F41.9] 01/16/2023 Abrasion of face [S00.81XA] 04/20/2023 12/11/2023 Diagnosed: 06/07/2023 Facial paresthesia [R20.2] 06/07/2023 Diagnosed: 06/07/2023 Laceration of thumb [S61.019A] 06/07/2023 12/11/2023 Diagnosed: 06/07/2023 Oropharyngeal dysphagia [R13.12] 06/08/2023 Mass of spine [M89.8X8] 02/21/2024 Dyslipidemia [E78.5] 02/26/2024 Proteinuria [R80.9] 03/22/2024 Prescriptions ordered this encounter Disp Refills Start End REGADENOSON 0.4 MG/5 ML (more content not included)... Normal [facility] CARDIAC PERF STRESS/PHARM on 10-15-2024 NM CARDIAC PERF STRESS/PHARM * * *Final Report* * * DATE OF EXAM: Oct 15 2024 12:43PM [facility] 0006 - [place] CARDIAC PERF STRESS/PHARM / PROCEDURE REASON: multiple diagnoses * * * * Physician Interpretation * * * * Stress Line Therapist Report: [facility] Date of service: 10/15/2024 10:28:23 AM Supervising physician: Layla Lewis MD PATIENT: Name: VIC BALLESTEROS Age: 58 years Gender: M The supervising physician was in the department and immediately available. * * * Final * * * PATIENT: Name: VIC BALLESTEROS Age: 58 years Gender: M CONCLUSIONS: 1. SPECT Perfusion Study: Normal. 2. There is no scintigraphic evidence for inducible ischemia. 3. No evidence of scarred myocardium. 4. Left ventricle is normal in size. The left ventricle systolic function is normal. 5. This is a low risk scan. Gated Stress FBP LVEF % 67 Prior Study Comparison Prior nuclear cardiology exam was performed on 01/03/17. Nuclear Med Report:1-Day Gated SPECT Myocardial Perfusion with Regadenoson Stress: Myocardial perfusion imaging was performed at rest 30 minutes following the IV injection of the radiotracer. The patient received 0.4 mg of regadenoson, via rapid IV push, immediately followed by radiotracer IV. Gated post stress tomographic imaging was performed 30 to 60 minutes later. See administered radiotracer and doses below. [facility] Date of service: 10/15/2024 10:28:23 AM Ordering Physician: LAYLA LEWIS. Requesting Physician: LAYLA LEWIS Indication: other chest pain Interpreting physician: Layla Lewis MD Height: 167.20 cm BSA: 2.38 m? Weight: 122.00 kg BMI: 43.6 kg/m? CT Dose Reduction Employed: No. Exam Type: Rest Stress Radiopharm: Tc-99m Tetrofosmin Tc-99m Tetrofosmin Dosage(mCi): 11.8 31.3 Atten Correction: not performed not performed Stress Agent: Regadenoson 0.4mg Supply provided from [facility] Resting Blood Press: 142/82 mmHg Image Quality The overall study imaging quality was deemed to be excellent. FINDINGS: Left Ventricle Wall Motion: Stress IR:3D - All segments are normal. Rest IR:3D - Gated Stress FBP - Reversibility - Stress IR:3D Stress IR:3D Gated Stress FBP LVEF: 67 % ED Volume: 123 ml ES Volume: 40 ml TID: 0.99 Perfusion Findings Stress IR:3D - Summed Score=0 All segments demonstrate normal perfusion. Rest IR:3D - Summed Score=0 All segments demonstrate normal perfusion. Stress IR:3D Rest IR:3D Summed Score=0 Summed Score=0 LEFT VENTRICLE The left ventricle is normal in size. Left ventricular systolic function is normal. Right Ventricle The right ventricle is unseen or not interrogated. Stress Test Findings: There is no scintigraphic evidence for inducible ischemia. There is no evidence of scarring. * * * Final * * * Stress ECG Report: [facility] Date of service: 10/15/2024 10:28:23 AM Ordering physician: LAYLA LEWIS engineer specialist: Mindy Burrell RN Interpreting physician: Layla Lewis MD Patient name: VIC BALLESTEROS Age: 58 years Gender: M Height: 167.20 cm BSA: 2.38 m? Weight: 122.00 kg BMI: 43.6 kg/m? Indication: Precordial chest pain Stress ECG Conclusion: Conclusion: Normal Comments: No c/o chest pain or SOB with IV regadenoson administration. Prior exam comparison: No prior CC exam Stress ECG Summary: The patient's resting heart rate was 62 bpm and blood pressure was 142/82 mmHg. The patient received regadenoson 0.4 mg IVP over approximately 15 seconds followed immediately by injection of nuclear isotope. The test was terminated due to general fatigue. No symptoms provoked during stress. Medications: Last Used LOSARTAN 3 Hours Resting ECG: Normal Sinus Rhythm and Peaked T Waves Symptoms at rest: No symptoms Pharamcologic Protocol: Regadenoson Stress Exercise Table: +------+ +--+---+ ---+ Stage Time (min) HR SYS JUANA +------+ +--+---+ ---+ 1 1.0 71 142 82 +------+ +--+---+ ---+ 2 2.0 88 146 80 +------+ +--+---+ ---+ 3 3.0 73 146 80 +------+ +--+---+ ---+ 4 4.0 76 148 76 +------+ +--+---+ ---+ ++--+ HR ++--+ +------+ + Stage Arrhythmias +------+ + 1 Regadenoson Injection and Isotope Injection +------+ + Recovery Table: +------+ +--+---+ ---+ Stage Time (min) HR SYS JUANA +------+ + (more content not included)... Normal [facility] Heart Perfusion W stress and W radionuclide Christina 10-15-2024 * * *Final Report* * * DATE OF EXAM: Oct 15 2024 12:43PM [facility] 0006 - [place] CARDIAC PERF STRESS/PHARM / PROCEDURE REASON: multiple diagnoses * * * * Physician Interpretation * * * * Stress Line Therapist Report: [facility] Date of service: 10/15/2024 10:28:23 AM Supervising physician: Layla Lewis MD PATIENT: Name: VIC BALLESTEROS Age: 58 years Gender: M The supervising physician was in the department and immediately available. * * * Final * * * PATIENT: Name: VIC BALLESTEROS Age: 58 years Gender: M CONCLUSIONS: 1. SPECT Perfusion Study: Normal. 2. There is no scintigraphic evidence for inducible ischemia. 3. No evidence of scarred myocardium. 4. Left ventricle is normal in size. The left ventricle systolic function is normal. 5. This is a low risk scan. Gated Stress FBP LVEF % 67 Prior Study Comparison Prior nuclear cardiology exam was performed on 01/03/17. Nuclear Med Report:1-Day Gated SPECT Myocardial Perfusion with Regadenoson Stress: Myocardial perfusion imaging was performed at rest 30 minutes following the IV injection of the radiotracer. The patient received 0.4 mg of regadenoson, via rapid IV push, immediately followed by radiotracer IV. Gated post stress tomographic imaging was performed 30 to 60 minutes later. See administered radiotracer and doses below. [facility] Date of service: 10/15/2024 10:28:23 AM Ordering Physician: LAYLA LEWIS. Requesting Physician: LAYLA LEWIS Indication: other chest pain Interpreting physician: Layla Lewis MD Height: 167.20 cm BSA: 2.38 m Weight: 122.00 kg BMI: 43.6 kg/m CT Dose Reduction Employed: No. Exam Type: Rest Stress Radiopharm: Tc-99m Tetrofosmin Tc-99m Tetrofosmin Dosage(mCi): 11.8 31.3 Atten Correction: not performed not performed Stress Agent: Regadenoson 0.4mg Supply provided from [facility] Resting Blood Press: 142/82 mmHg Image Quality The overall study imaging quality was deemed to be excellent. FINDINGS: Left Ventricle Wall Motion: Stress IR:3D - All segments are normal. Rest IR:3D - Gated Stress FBP - Reversibility - Stress IR:3D Stress IR:3D Gated Stress FBP LVEF: 67 % ED Volume: 123 ml ES Volume: 40 ml TID: 0.99 Perfusion Findings Stress IR:3D - Summed Score=0 All segments demonstrate normal perfusion. Rest IR:3D - Summed Score=0 All segments demonstrate normal perfusion. Stress IR:3D Rest IR:3D Summed Score=0 Summed Score=0 LEFT VENTRICLE The left ventricle is normal in size. Left ventricular systolic function is normal. Right Ventricle The right ventricle is unseen or not interrogated. Stress Test Findings: There is no scintigraphic evidence for inducible ischemia. There is no evidence of scarring. * * * Final * * * Stress ECG Report: [facility] Date of service: 10/15/2024 10:28:23 AM Ordering physician: LAYLA LEWIS engineer specialist: Mindy Burrell RN Interpreting physician: Layla Lewis MD Patient name: VIC BALLESTEROS Age: 58 years Gender: M Height: 167.20 cm BSA: 2.38 m Weight: 122.00 kg BMI: 43.6 kg/m Indication: Precordial chest pain Stress ECG Conclusion: Conclusion: Normal Comments: No c/o chest pain or SOB with IV regadenoson administration. Prior exam comparison: No prior CC exam Stress ECG Summary: The patient's resting heart rate was 62 bpm and blood pressure was 142/82 mmHg. The patient received regadenoson 0.4 mg IVP over approximately 15 seconds followed immediately by injection of nuclear isotope. The test was terminated due to general fatigue. No symptoms provoked during stress. Medications: Last Used LOSARTAN 3 Hours Resting ECG: Normal Sinus Rhythm and Peaked T Waves Symptoms at rest: No symptoms Pharamcologic Protocol: Regadenoson Stress Exercise Table: +------+ +--+---+ ---+ Stage Time (min) HR SYS JUANA +------+ +--+---+ ---+ 1 1.0 71 142 82 +------+ +--+---+ ---+ 2 2.0 88 146 80 +------+ +--+---+ ---+ 3 3.0 73 146 80 +------+---- (more content not included)... DIVISION OF RADIOLOGY Provider, [facility] - 10/15/2024 * * *Final Report* * * DATE OF EXAM: Oct 15 2024 12:43PM [facility] 0006 - [place] CARDIAC PERF STRESS/PHARM / PROCEDURE REASON: multiple diagnoses * * * * Physician Interpretation * * * * Stress Line Therapist Report: [facility] Date of service: 10/15/2024 10:28:23 AM Supervising physician: Layla Lewis MD PATIENT: Name: VIC BALLESTEROS Age: 58 years Gender: M The supervising physician was in the department and immediately available. * * * Final * * * PATIENT: Name: VIC BALLESTEROS Age: 58 years Gender: M CONCLUSIONS: 1. SPECT Perfusion Study: Normal. 2. There is no scintigraphic evidence for inducible ischemia. 3. No evidence of scarred myocardium. 4. Left ventricle is normal in size. The left ventricle systolic function is normal. 5. This is a low risk scan. Gated Stress FBP LVEF % 67 Prior Study Comparison Prior nuclear cardiology exam was performed on 01/03/17. Nuclear Med Report:1-Day Gated SPECT Myocardial Perfusion with Regadenoson Stress: Myocardial perfusion imaging was performed at rest 30 minutes following the IV injection of the radiotracer. The patient received 0.4 mg of regadenoson, via rapid IV push, immediately followed by radiotracer IV. Gated post stress tomographic imaging was performed 30 to 60 minutes later. See administered radiotracer and doses below. [facility] Date of service: 10/15/2024 10:28:23 AM Ordering Physician: LAYLA LEWIS. Requesting Physician: LAYLA LEWIS Indication: other chest pain Interpreting physician: Layla Lewis MD Height: 167.20 cm BSA: 2.38 m Weight: 122.00 kg BMI: 43.6 kg/m CT Dose Reduction Employed: No. Exam Type: Rest Stress Radiopharm: Tc-99m Tetrofosmin Tc-99m Tetrofosmin Dosage(mCi): 11.8 31.3 Atten Correction: not performed not performed Stress Agent: Regadenoson 0.4mg Supply provided from [facility] Resting Blood Press: 142/82 mmHg Image Quality The overall study imaging quality was deemed to be excellent. FINDINGS: Left Ventricle Wall Motion: Stress IR:3D - All segments are normal. Rest IR:3D - Gated Stress FBP - Reversibility - Stress IR:3D Stress IR:3D Gated Stress FBP LVEF: 67 % ED Volume: 123 ml ES Volume: 40 ml TID: 0.99 Perfusion Findings Stress IR:3D - Summed Score=0 All segments demonstrate normal perfusion. Rest IR:3D - Summed Score=0 All segments demonstrate normal perfusion. Stress IR:3D Rest IR:3D Summed Score=0 Summed Score=0 LEFT VENTRICLE The left ventricle is normal in size. Left ventricular systolic function is normal. Right Ventricle The right ventricle is unseen or not interrogated. Stress Test Findings: There is no scintigraphic evidence for inducible ischemia. There is no evidence of scarring. * * * Final * * * Stress ECG Report: [facility] Date of service: 10/15/2024 10:28:23 AM Ordering physician: LAYLA LEWIS engineer specialist: Mindy Burrell RN Interpreting physician: Layla Lewis MD Patient name: VIC BALLESTEROS Age: 58 years Gender: M Height: 167.20 cm BSA: 2.38 m Weight: 122.00 kg BMI: 43.6 kg/m Indication: Precordial chest pain Stress ECG Conclusion: Conclusion: Normal Comments: No c/o chest pain or SOB with IV regadenoson administration. Prior exam comparison: No prior CC exam Stress ECG Summary: The patient's resting heart rate was 62 bpm and blood pressure was 142/82 mmHg. The patient received regadenoson 0.4 mg IVP over approximately 15 seconds followed immediately by injection of nuclear isotope. The test was terminated due to general fatigue. No symptoms provoked during stress. Medications: Last Used LOSARTAN 3 Hours Resting ECG: Normal Sinus Rhythm and Peaked T Waves Symptoms at rest: No symptoms Pharamcologic Protocol: Regadenoson Stress Exercise Table: +------+ +--+---+ ---+ Stage Time (min) HR SYS JUANA +------+ +--+---+ ---+ 1 1.0 71 142 82 +------+ +--+---+ ---+ 2 2.0 88 146 80 +------+ +--+---+ ---+ 3 3.0 73 146 80 +------+ +--+---+ ---+ 4 4.0 76 148 76 +------+ +--+---+ ---+ ++--+ HR ++--+ +------+ + Stage Arrhythmias +------+ + 1 Regadenoson Injection and Isotope Injec (more content not included)... [facility] Radiology Study observation (narrative) [facility] NM Heart Perfusion W stress and W radionuclide IVOrdered By: [facility] Provider on 10-15-2024 [facility] CNOVon 10-03-2024 CNOV Office Visit ([facility] ) -- VIC BALLESTEROS ([id number]) 1965 M Date Time Provider Department 10/03/24 11:00 AM LAYLA LEWIS During your visit today, we recorded the following information about you: Pulse Blood pressure Weight Height 63/minute 130/70 122 kg 1.672 m Layla Lewis MD 10/03/2024 11:34 AM Signed [facility] [place] [facility] [place] Department of Cardiovascular Medicine SECTION OF REGIONAL CARDIOLOGY Consultation requested by Lacy Kessler MD for an opinion regarding Vic Ballesteros. My final recommendations will be communicated back to the requesting physician by way of shared Medical record or letter to requesting physician via [place] mail. CC: coronary artery calcifications HPI: Vic Ballesteros is a (an) 58 year old male who is here today for coronary artery calcifications. The patient has repeated episodes of chest pain described as left-sided pressure sometimes with exertion sometimes at rest usually lasting less than 5 minutes with no radiation and no accompanying symptoms, patient recently had a CT that showed coronary calcification as well, other than that, currently the patient has no other cardiovascular complaints denying shortness of breath, orthopnea, paroxysmal nocturnal dyspnea, cyanosis, palpitations, dizziness, lightheadedness, near syncope, syncope, edema of the lower extremities, perceived recent weight gain or intermittent claudications. The patient exercises minimally PAST MEDICAL HISTORY Diagnosis Date ACNE NEC 10/13/2006 Anxiety 01/16/2023 Depression Dyslipidemia Essential hypertension 01/16/2023 GERD (gastroesophageal reflux disease) 01/16/2023 History of traumatic brain injury Hypogonadism male 10/30/1988 Left knee pain Obesity AMANDA (obstructive sleep apnea) 10/30/2005 cpap PMH - PAST MEDICAL HISTORY OF L 5 nerve injury workman comp PMH - PAST MEDICAL HISTORY OF 10/30/1988 Industrial accident fall Stroke (HCC) Thrombosed external hemorrhoid 10/26/2011 Unspecified site of spinal cord injury without evidence of spinal bone injury 01/25/2013 PAST SURGICAL HISTORY Procedure Laterality Date ABDOMINAL SURGERY HX COLONOSCOPY FLX DX W/COLLJ SPEC WHEN PFRMD 04/17/2012 repeat 10 years COLONOSCOPY SCREENING 06/09/2022 10 year f/u colonoscopy FRACTURE SURGERY JOINT REPLACEMENT HX LAPAROSCOPY SURG CHOLECYSTECTOMY 08/01/2017 Cholecystectomy, lap PAST SURGICAL HISTORY OF Right 1988 wrist fracture after work accident, states still has hardware PAST SURGICAL HISTORY OF 1988 exploratory after accident, opened from pubic bone to breastbone REPAIR NASAL SEPTUM DEFECT RPR 1ST INCAL/VNT HERNIA INCARCERATED 10/28/2019 TOTAL HIP REPLACEMENT Left 2021 VASECTOMY UNI/BI SPX W/POSTOP SEMEN EXAMS Bilateral 1999 FAMILY HISTORY Problem Relation Age of Onset Heart Mother Hypertension Mother Stroke Mother Cancer Father lung, throat other (lymphoma) Sister other (car accident) Sister None Brother None Brother SOCIAL HISTORY Social History Tobacco Use Smoking status: Never Smokeless tobacco: Never Vaping Use Vaping status: Never Used Substance Use Topics Alcohol use: Yes Alcohol/week: 1.0 standard drink of alcohol Types: 1 Cans of Beer (12oz) per week Drug use: No ALLERGIES: Penicillin G, Sulfa (Sulfonamide Antibiotics), Celebrex [Celecoxib], and Lisinopril CURRENT MEDICATIONS: Current Outpatient Medications Medication Sig Dispense Refill amphetamine-dextroamphetam ine XR (ADDERALL XR) 10 mg capsule Take 10 mg by mouth once daily. buPROPion (WELLBUTRIN) 75 mg tablet Take 75 mg by mouth two times a day. budesonide-formoterol (SYMBICORT) 80-4.5 mcg/actuation inhaler Inhale 2 Puffs as instructed two times a day. [address] (PROTONIX) 40 mg tablet Take 1 tablet by mouth once daily. 30 tablet 5 testosterone (ANDROGEL) 50 mg / 5 g (1%) Apply 1 packet to affected area every other day. Alternating with 25 mg. 30 Packet 0 ergocalciferol 50,000 unit capsule (VITAMIN D2, DRISDOL) Take 1 capsule by mouth one time a week. 12 capsule 1 Tadalafil (CIALIS) 20 mg tablet TAKE 1 TABLET BY MOUTH 1-2 HOURS BEFORE SEXUAL INTRACOURSE NEEDED 6 tablet 17 albuterol HFA (VENTOLIN HFA) 90 mcg/actuation inhaler Inhale 2 Puffs as instructed every 4 hours as needed for wheezing/shortness of breath. 3 Each 1 acetaminophen (TYLENOL EXTRA STRENGTH) 500 mg tablet Take 2 tablets by mouth every 8 hours as needed for pain. 180 tablet 3 traMADol (ULTRAM) 50 mg tablet albuterol (PROVENTIL) 2.5 mg /3 mL (0.083 %) nebulizer solution Use 3 mL via nebulizer every 6 hours as needed for wheezing/shortness of breath. Use over 5-15minutes. 180 mL 1 losartan (COZAAR) 50 mg tablet Take 1 tablet by mouth once daily. 90 tablet 4 testosterone (ANDROGEL) 25 mg/ 2.5g (1%) A (more content not included)... Normal [facility] ECG COMPLETEon 10-03-2024 ECG COMPLETE Ventricular Rate : 6 3 BPM Atrial Rate : 63 BPM P-R Interval : 174 ms QRS Duration : 84 ms Q-T Interval : 408 ms QTC Calculation(Bazett) : 417 ms Calculated P [place] : 41 degrees Calculated R [place] : -8 degrees Calculated T [place] : 30 degrees NORMAL SINUS RHYTHM NORMAL ECG Confirmed by LAYLA LEWIS M.D. ([id number]), sound editor JAKE CARROLL ([id number]) on 10/04/2024 9:54:33 AM NAME : LESLIVIC Ponce PID : [id number] : 1965 Gender : Male Race : ORD : [id number] Procedure Date : Oct 03 2024 11:05:11 Edit Date : Oct 04 2024 09:54:38 Diagnosis: NORMAL SINUS RHYTHM NORMAL ECG Confirmed by LAYLA LEWIS M.D. ([id number]), sound editor JAKE CARROLL ([id number]) on 10/04/2024 9:54:33 AM Test Reason : Location : 105 : [facility] Overread By : LAYLA LEWIS M.D. Edited By : JAKE CARROLL Referred By : LACY KESSLER Acquired by : Della pringle [facility] CNOVon 10-01-2024 CNOV Office Visit (PULMWS ) -- VIC BALLESTEROS ([id number]) 1965 M Date Time Provider Department 10/01/24 11:00 AM LACY KESSLER PULMTAIWO During your visit today, we recorded the following information about you: Pulse Respiration Blood pressure Weight 62/minute 18/minute 130/82 117.9 kg Lacy Kessler MD 10/01/2024 1:24 PM [facility] Respiratory [place] Note Patient name: Vci Ballesteros PCP: Myah Arteaga MD Referring Physician: Tara Hilliard CNP Consultation requested by Tara Hilliard for an opinion regarding chronic cough possible asthma. My final recommendations will be communicated back to the requesting physician by way of shared Medical record or letter to requesting physician via US mail. CC: cough and wheezing HPI: Vic Ballesteros 58 year old male never smoker with PMH significant for morbid obesity, anxiety/depression, GERD, HTN, AMANDA on CPAP, HLD, being referred for evaluation of possible asthma. No prior history of asthma or allergies. History notable for COVID infection this past June. Hospitalized at [facility] for several days, did not require supplemental oxygen, treated with remdesivir and dexamethasone. Since that time he has had persistent cough and wheezing. He has been short of breath mainly with activity. Self monitored SpO2 93-95%. Describes his shortness of breath similar in sensation to when one is first exposed to extreme cold air. He is heard wheezing mainly at night when he lies down. He also has noted coughing postprandial. He has known acid reflux disease for which he takes occasional Tums. He was started on Wixela and albuterol inhalers. He does not use any inhalers on a regular basis. He notes throat irritation and dysphonia with use of the powdered form inhaler. DATA: PFT 08/15/24: Review of pulmonary function test show restriction and small airways obstruction Labs: Component Ref Range AND Units 3 mo ago (06/14/24) WBC 3.70 - 11.00 k/uL 5.41 RBC 4.20 - 6.00 m/uL 5.17 Hemoglobin 13.0 - 17.0 g/dL 16.4 Hematocrit 39.0 - 51.0 % 47.4 MCV 80.0 - 100.0 fL 91.7 MCH 26.0 - 34.0 pg 31.7 MCHC 30.5 - 36.0 g/dL 34.6 RDW-CV 11.5 - 15.0 % 12.6 Platelet Count 150 - 400 k/uL 173 MPV 9.0 - 12.7 fL 10.3 Neutrophils % % 52.2 Abs Neut 1.45 - 7.50 k/uL 2.82 Lymphocytes % % 35.7 Abs Lymph 1.00 - 4.00 k/uL 1.93 Monocytes % % 7.9 Abs [place] <0.87 k/uL 0.43 Eosinophils % % 3.3 Abs Eosin <0.46 k/uL 0.18 Basophils % % 0.7 Abs Baso <0.11 k/uL 0.04 Immature Granulocytes % % 0.2 Abs Immature Gran <0.10 k/uL <0.03 NRBC /100 WBC 0.0 Absolute nRBC <0.01 k/uL <0.01 Imaging / Diagnostic Studies: DATE OF EXAM: Jul 30 2024 2:06PM [facility] 0539 - CT CHEST W IVCON / IMPRESSION: 1. No acute chest pathology 2. 5 mm nodule right lower lobe 3. No thoracic lymphadenopathy CXR 06/2024 Possible left lower lobe infiltrate PAST MEDICAL HISTORY Diagnosis Date ACNE NEC 10/13/2006 Anxiety 01/16/2023 Depression Dyslipidemia Essential hypertension 01/16/2023 GERD (gastroesophageal reflux disease) 01/16/2023 History of traumatic brain injury Hypogonadism male 10/30/1988 Left knee pain Obesity AMANDA (obstructive sleep apnea) 10/30/2005 cpap PMH - PAST MEDICAL HISTORY OF L 5 nerve injury workman comp PMH - PAST MEDICAL HISTORY OF 10/30/1988 Industrial accident fall Stroke (HCC) Thrombosed external hemorrhoid 10/26/2011 Unspecified site of spinal cord injury without evidence of spinal bone injury 01/25/2013 ALLERGIES Allergen Reactions Penicillin G Hives Sulfa (Sulfonamide * Hives Celebrex [Celecoxib] Rash Lisinopril Intolerance Cough amphetamine-dextroamphetam ine XR (ADDERALL XR) 10 mg capsule Take 10 mg by mouth once daily. buPROPion (WELLBUTRIN) 75 mg tablet Take 75 mg by mouth two times a day. testosterone (ANDROGEL) 50 mg / 5 g (1%) Apply 1 packet to affected area every other day. Alternating with 25 mg. ergocalciferol 50,000 unit capsule (VITAMIN D2, DRISDOL) Take 1 capsule by mouth one time a week. Tadalafil (CIALIS) 20 mg tablet TAKE 1 TABLET BY MOUTH 1-2 HOURS BEFORE SEXUAL INTRACOURSE NEEDED traMADol (ULTRAM) 50 mg tablet losartan (COZAAR) 50 mg tablet Take 1 tablet by mouth once daily. testosterone (ANDROGEL) 25 mg/ 2.5g (1%) Apply 1 Packet to affected area every other day for 180 days. Alernating witth 50 mg qod clonazePAM (KLONOPIN) 1 mg tablet TAKE 1/2 TABLET THREE TIMES A DAY NEEDED budesonide-formoterol (SYMBICORT) 80-4.5 mcg/actuation inhaler Inhale 2 Puffs as instructed two times a day. pantoprazole DR (PROTONIX) 40 mg tablet Take 1 tablet by mouth once daily. albuterol HFA (VENTOLIN HFA) 90 mcg/actuation inhaler Inhale 2 Puffs as instructed every 4 hours as needed for wheezing/shortness of breath. ac (more content not included)... Normal [facility] No Panel Informationon 10-01 Mary Jo Garcia RPF T 10/01/2024 11:17 AM RESPIRATORY THERAPY ORAL EXHALED NITRIC OXIDE SERVICE DATE: 10/01/2024 SERVICE TIME: 11:17 AM Oral Exhaled Nitric Oxide measurement: 15.0 (ppb) Normal: Adult <25 ppb, pediatric (<12 years) <20 ppb High Normal / Increased: Adult 25-50 ppb, pediatric (<12 years) 20-35 ppb Moderately raised exhaled Nitric Oxide may indicate underlying inflammation, but note that: Cold and influenza can raise exhaled Nitric Oxide and some patients have higher baseline exhaled Nitric Oxide levels than others. High: Adult >50 ppb, pediatric (<12 years) >35 ppb Indicative of ongoing eosinophilic inflammation. Symptomatic patient likely to respond to steroids. Possible causes (if already on steroids): Poor compliance, recent allergen exposure, steroid dose inadequate, and steroid resistance. Note that not all patients with high exhaled nitric oxide levels display symptoms. Oral Exhaled Nitric Oxide measurement (Previous Encounters) Test Date Oral Exhaled Nitric Oxide (ppb) 10/01/2024 15.0 NAME: VIVIANE London PATIENT NAME: Vic Ballesteros DATE: October 01, 2024 TIME: 11:17 AM [facility] Basic Metabolic Profile (BMP )on 07-26-2024 BUN Normal 7-18 [facility] Comment on above: Result Comment: Canc elled via OM: Order cancelled - Patient discharged Performed By: #### L 501.4020, L100.0100, L500.2500 #### [facility] [address] [place], [address] BUN/CRE Normal 10-20 [facility] Comment on above: Result Comment: Canc elled via OM: Order cancelled - Patient discharged Performed By: #### L [id number], L100.0100, L500.2500 #### [facility] [address] [place], [address] CA,Total Normal 8.5-10.1 [facility] Comment on above: Result Comment: Canc elled via OM: Order cancelled - Patient discharged Performed By: #### L 501.4020, L100.0100, L500.2500 #### [facility] [address] [place], [address] CL Normal 98-107 [facility] Comment on above: Result Comment: Canc elled via OM: Order cancelled - Patient discharged Performed By: #### L [id number], L100.0100, L500.2500 #### [facility] [address] [place], [address] CO2 Normal 21.0-32.0 [facility] Comment on above: Result Comment: Canc elled via OM: Order cancelled - Patient discharged Performed By: #### L [id number], L100.0100, L500.2500 #### [facility] [address] [place], [address] CREAT,SERUM Normal 0.70-1.30 [facility] Comment on above: Result Comment: Canc elled via OM: Order cancelled - Patient discharged Performed By: #### L [id number], L100.0100, L500.2500 #### [facility] [address] [place], [address] EST GFR Normal >60 [facility] Comment on above: Result Comment: Canc elled via OM: Order cancelled - Patient discharged Performed By: #### L [id number], L100.0100, L500.2500 #### [facility] [address] [place], [address] EST GFR - AA Normal >60 [facility] Comment on above: Result Comment: Canc elled via OM: Order cancelled - Patient discharged Performed By: #### L 501.4020, L100.0100, L500.2500 #### [facility] [address] [place], [address] GAP Normal 5-15 [facility] Comment on above: Result Comment: Canc elled via OM: Order cancelled - Patient discharged Performed By: #### L 501.4020, L100.0100, L500.2500 #### [facility] [address] [place], [address] GLU Normal 74-106 [facility] Comment on above: Result Comment: Canc elled via OM: Order cancelled - Patient discharged Performed By: #### L 501.4020, L100.0100, L500.2500 #### [facility] [address] [place], [address] Potassium Normal 3.5-5.1 [facility] Comment on above: Result Comment: Canc elled via OM: Order cancelled - Patient discharged Performed By: #### L 501.4020, L100.0100, L500.2500 #### [facility] [address] [place], [address] Basic Metabolic Profile (BMP) Normal 136-145 [facility] Comment on above: Result Comment: Canc elled via OM: Order cancelled - Patient discharged Performed By: #### L 501.4020, L100.0100, L500.2500 #### [facility] [address] [place], [address] CBC W/Diff, Automatedon 09-2 Absolute Neut Normal 2.0-7.7 [facility] Comment on above: Result Comment: Canc elled via OM: Order cancelled - Patient discharged Performed By: #### L 501.4020, L100.0100, L500.2500 #### [facility] [address] [place], [address] HCT Normal 40-54 [facility] Comment on above: Result Comment: Canc elled via OM: Order cancelled - Patient discharged Performed By: #### L 501.4020, L100.0100, L500.2500 #### [facility] [address] [place], [address] HGB Normal 13.0-16.5 [facility] Comment on above: Result Comment: Canc elled via OM: Order cancelled - Patient discharged Performed By: #### L 501.4020, L100.0100, L500.2500 #### [facility] [address] [place], [address] MCH Normal 27.0-32.0 [facility] Comment on above: Result Comment: Canc elled via OM: Order cancelled - Patient discharged Performed By: #### L 501.4020, L100.0100, L500.2500 #### [facility] [address] [place], [address] MCHC Normal 32-36 [facility] Comment on above: Result Comment: Canc elled via OM: Order cancelled - Patient discharged Performed By: #### L 501.4020, L100.0100, L500.2500 #### [facility] [address] [place], [address] MCV Normal 80-94 [facility] Comment on above: Result Comment: Canc elled via OM: Order cancelled - Patient discharged Performed By: #### L 501.4020, L100.0100, L500.2500 #### [facility] [address] [place], [address] NEUT% Normal 47-70 [facility] Comment on above: Result Comment: Canc elled via OM: Order cancelled - Patient discharged Performed By: #### L 501.4020, L100.0100, L500.2500 #### [facility] [address] [place], [address] PLT Normal 150-450 [facility] Comment on above: Result Comment: Canc elled via OM: Order cancelled - Patient discharged Performed By: #### L 501.4020, L100.0100, L500.2500 #### [facility] [address] [place], [address] RBC Normal 4.6-6.2 [facility] Comment on above: Result Comment: Canc elled via OM: Order cancelled - Patient discharged Performed By: #### L 501.4020, L100.0100, L500.2500 #### [facility] [address] [place], [address] RDW CV Normal 11.6-14.6 [facility] Comment on above: Result Comment: Canc elled via OM: Order cancelled - Patient discharged Performed By: #### L 501.4020, L100.0100, L500.2500 #### [facility] [address] [place], [address] RDW SD Normal 35.1-43.9 [facility] Comment on above: Result Comment: Canc elled via OM: Order cancelled - Patient discharged Performed By: #### L 501.4020, L100.0100, L500.2500 #### [facility] [address] [place], [address] WBC Normal 4.4-11.0 [facility] Comment on above: Result Comment: Canc elled via OM: Order cancelled - Patient discharged Performed By: #### L 501.4020, L100.0100, L500.2500 #### [facility] [address] [place], [address] Basic Metabolic Profile (BMP )on 07-25-2024 BUN Normal 7-18 [facility] Comment on above: Result Comment: Canc elled via OM: Order cancelled - Patient discharged Performed By: #### L 501.4020, L100.0100, L500.2500 #### [facility] [address] [place], [address] BUN/CRE Normal 10-20 [facility] Comment on above: Result Comment: Canc elled via OM: Order cancelled - Patient discharged Performed By: #### L 501.4020, L100.0100, L500.2500 #### [facility] [address] [place], [address] CA,Total Normal 8.5-10.1 [facility] Comment on above: Result Comment: Canc elled via OM: Order cancelled - Patient discharged Performed By: #### L 501.4020, L100.0100, L500.2500 #### [facility] [address] [place], [address] CL Normal 98-107 [facility] Comment on above: Result Comment: Canc elled via OM: Order cancelled - Patient discharged Performed By: #### L 501.4020, L100.0100, L500.2500 #### [facility] [address] [place], [address] CO2 Normal 21.0-32.0 [facility] Comment on above: Result Comment: Canc elled via OM: Order cancelled - Patient discharged Performed By: #### L 501.4020, L100.0100, L500.2500 #### [facility] [address] [place], [address] CREAT,SERUM Normal 0.70-1.30 [facility] Comment on above: Result Comment: Canc elled via OM: Order cancelled - Patient discharged Performed By: #### L 501.4020, L100.0100, L500.2500 #### [facility] [address] [place], [address] EST GFR Normal >60 [facility] Comment on above: Result Comment: Canc elled via OM: Order cancelled - Patient discharged Performed By: #### L 501.4020, L100.0100, L500.2500 #### [facility] [address] [place], [address] EST GFR - AA Normal >60 [facility] Comment on above: Result Comment: Canc elled via OM: Order cancelled - Patient discharged Performed By: #### L 501.4020, L100.0100, L500.2500 #### [facility] [address] [place], [address] GAP Normal 5-15 [facility] Comment on above: Result Comment: Canc elled via OM: Order cancelled - Patient discharged Performed By: #### L 501.4020, L100.0100, L500.2500 #### [facility] [address] [place], [address] GLU Normal 74-106 [facility] Comment on above: Result Comment: Canc elled via OM: Order cancelled - Patient discharged Performed By: #### L 501.4020, L100.0100, L500.2500 #### [facility] [address] [place], [address] Potassium Normal 3.5-5.1 [facility] Comment on above: Result Comment: Canc elled via OM: Order cancelled - Patient discharged Performed By: #### L 501.4020, L100.0100, L500.2500 #### [facility] [address] [place], [address] Basic Metabolic Profile (BMP) Normal 136-145 [facility] Comment on above: Result Comment: Canc elled via OM: Order cancelled - Patient discharged Performed By: #### L 501.4020, L100.0100, L500.2500 #### [facility] [address] [place], [address] CBC W/Diff, Automatedon 09-2 Absolute Neut Normal 2.0-7.7 [facility] Comment on above: Result Comment: Canc elled via OM: Order cancelled - Patient discharged Performed By: #### L 501.4020, L100.0100, L500.2500 #### [facility] [address] [place], [address] HCT Normal 40-54 [facility] Comment on above: Result Comment: Canc elled via OM: Order cancelled - Patient discharged Performed By: #### L 501.4020, L100.0100, L500.2500 #### [facility] [address] [place], [address] HGB Normal 13.0-16.5 [facility] Comment on above: Result Comment: Canc elled via OM: Order cancelled - Patient discharged Performed By: #### L 501.4020, L100.0100, L500.2500 #### [facility] [address] [place], [address] MCH Normal 27.0-32.0 [facility] Comment on above: Result Comment: Canc elled via OM: Order cancelled - Patient discharged Performed By: #### L 501.4020, L100.0100, L500.2500 #### [facility] [address] [place], [address] MCHC Normal 32-36 [facility] Comment on above: Result Comment: Canc elled via OM: Order cancelled - Patient discharged Performed By: #### L 501.4020, L100.0100, L500.2500 #### [facility] [address] [place], [address] MCV Normal 80-94 [facility] Comment on above: Result Comment: Canc elled via OM: Order cancelled - Patient discharged Performed By: #### L 501.4020, L100.0100, L500.2500 #### [facility] [address] [place], [address] NEUT% Normal 47-70 [facility] Comment on above: Result Comment: Canc elled via OM: Order cancelled - Patient discharged Performed By: #### L 501.4020, L100.0100, L500.2500 #### [facility] [address] [place], [address] PLT Normal 150-450 [facility] Comment on above: Result Comment: Canc elled via OM: Order cancelled - Patient discharged Performed By: #### L 501.4020, L100.0100, L500.2500 #### [facility] [address] [place], [address] RBC Normal 4.6-6.2 [facility] Comment on above: Result Comment: Canc elled via OM: Order cancelled - Patient discharged Performed By: #### L 501.4020, L100.0100, L500.2500 #### [facility] [address] [place], [address] RDW CV Normal 11.6-14.6 [facility] Comment on above: Result Comment: Canc elled via OM: Order cancelled - Patient discharged Performed By: #### L 501.4020, L100.0100, L500.2500 #### [facility] [address] [place], [address] RDW SD Normal 35.1-43.9 [facility] Comment on above: Result Comment: Canc elled via OM: Order cancelled - Patient discharged Performed By: #### L 501.4020, L100.0100, L500.2500 #### [facility] [address] [place], [address] WBC Normal 4.4-11.0 [facility] Comment on above: Result Comment: Canc elled via OM: Order cancelled - Patient discharged Performed By: #### L 501.4020, L100.0100, L500.2500 #### [facility] [address] [place], [address] Basic Metabolic Profile (BMP )on 07-24-2024 BUN Normal 7-18 [facility] Comment on above: Result Comment: Canc elled via OM: Order cancelled - Patient discharged Performed By: #### L 501.4020, L100.0100, L500.2500 #### [facility] [address] [place], [address] BUN/CRE Normal 10-20 [facility] Comment on above: Result Comment: Canc elled via OM: Order cancelled - Patient discharged Performed By: #### L 501.4020, L100.0100, L500.2500 #### [facility] [address] [place], [address] CA,Total Normal 8.5-10.1 [facility] Comment on above: Result Comment: Canc elled via OM: Order cancelled - Patient discharged Performed By: #### L 501.4020, L100.0100, L500.2500 #### [facility] [address] [place], [address] CL Normal 98-107 [facility] Comment on above: Result Comment: Canc elled via OM: Order cancelled - Patient discharged Performed By: #### L 501.4020, L100.0100, L500.2500 #### [facility] [address] [place], [address] CO2 Normal 21.0-32.0 [facility] Comment on above: Result Comment: Canc elled via OM: Order cancelled - Patient discharged Performed By: #### L 501.4020, L100.0100, L500.2500 #### [facility] [address] [place], [address] CREAT,SERUM Normal 0.70-1.30 [facility] Comment on above: Result Comment: Canc elled via OM: Order cancelled - Patient discharged Performed By: #### L 501.4020, L100.0100, L500.2500 #### [facility] [address] [place], [address] EST GFR Normal >60 [facility] Comment on above: Result Comment: Canc elled via OM: Order cancelled - Patient discharged Performed By: #### L 501.4020, L100.0100, L500.2500 #### [facility] [address] [place], [address] EST GFR - AA Normal >60 [facility] Comment on above: Result Comment: Canc elled via OM: Order cancelled - Patient discharged Performed By: #### L 501.4020, L100.0100, L500.2500 #### [facility] [address] [place], [address] GAP Normal 5-15 [facility] Comment on above: Result Comment: Canc elled via OM: Order cancelled - Patient discharged Performed By: #### L 501.4020, L100.0100, L500.2500 #### [facility] [address] [place], [address] GLU Normal 74-106 [facility] Comment on above: Result Comment: Canc elled via OM: Order cancelled - Patient discharged Performed By: #### L 501.4020, L100.0100, L500.2500 #### [facility] [address] [place], [address] Potassium Normal 3.5-5.1 [facility] Comment on above: Result Comment: Canc elled via OM: Order cancelled - Patient discharged Performed By: #### L 501.4020, L100.0100, L500.2500 #### [facility] [address] [place], [address] Basic Metabolic Profile (BMP) Normal 136-145 [facility] Comment on above: Result Comment: Canc elled via OM: Order cancelled - Patient discharged Performed By: #### L 501.4020, L100.0100, L500.2500 #### [facility] [address] [place], [address] CBC W/Diff, Automatedon - Absolute Neut Normal 2.0-7.7 [facility] Comment on above: Result Comment: Canc elled via OM: Order cancelled - Patient discharged Performed By: #### L 501.4020, L100.0100, L500.2500 #### [facility] [address] [place], [address] HCT Normal 40-54 [facility] Comment on above: Result Comment: Canc elled via OM: Order cancelled - Patient discharged Performed By: #### L 501.4020, L100.0100, L500.2500 #### [facility] [address] [place], [address] HGB Normal 13.0-16.5 [facility] Comment on above: Result Comment: Canc elled via OM: Order cancelled - Patient discharged Performed By: #### L 501.4020, L100.0100, L500.2500 #### [facility] [address] [place], [address] MCH Normal 27.0-32.0 [facility] Comment on above: Result Comment: Canc elled via OM: Order cancelled - Patient discharged Performed By: #### L 501.4020, L100.0100, L500.2500 #### [facility] [address] [place], [address] MCHC Normal 32-36 [facility] Comment on above: Result Comment: Canc elled via OM: Order cancelled - Patient discharged Performed By: #### L 501.4020, L100.0100, L500.2500 #### [facility] [address] [place], [address] MCV Normal 80-94 [facility] Comment on above: Result Comment: Canc elled via OM: Order cancelled - Patient discharged Performed By: #### L 501.4020, L100.0100, L500.2500 #### [facility] [address] [place], [address] NEUT% Normal 47-70 [facility] Comment on above: Result Comment: Canc elled via OM: Order cancelled - Patient discharged Performed By: #### L 501.4020, L100.0100, L500.2500 #### [facility] [address] [place], [address] PLT Normal 150-450 [facility] Comment on above: Result Comment: Canc elled via OM: Order cancelled - Patient discharged Performed By: #### L 501.4020, L100.0100, L500.2500 #### [facility] [address] [place], [address] RBC Normal 4.6-6.2 [facility] Comment on above: Result Comment: Canc elled via OM: Order cancelled - Patient discharged Performed By: #### L 501.4020, L100.0100, L500.2500 #### [facility] [address] [place], [address] RDW CV Normal 11.6-14.6 [facility] Comment on above: Result Comment: Canc elled via OM: Order cancelled - Patient discharged Performed By: #### L 501.4020, L100.0100, L500.2500 #### [facility] [address] [place], [address] RDW SD Normal 35.1-43.9 [facility] Comment on above: Result Comment: Canc elled via OM: Order cancelled - Patient discharged Performed By: #### L 501.4020, L100.0100, L500.2500 #### [facility] [address] [place], [address] WBC Normal 4.4-11.0 [facility] Comment on above: Result Comment: Canc elled via OM: Order cancelled - Patient discharged Performed By: #### L 501.4020, L100.0100, L500.2500 #### [facility] [address] [place], [address] Basic Metabolic Profile (BMP )on 07-23-2024 BUN Normal 7-18 [facility] Comment on above: Result Comment: Canc elled via OM: Order cancelled - Patient discharged Performed By: #### L 500.2500, L100.0100 #### [facility] [address] [place], [address] BUN/CRE Normal 10-20 [facility] Comment on above: Result Comment: Canc elled via OM: Order cancelled - Patient discharged Performed By: #### L 500.2500, L100.0100 #### [facility] [address] [place], [address] CA,Total Normal 8.5-10.1 [facility] Comment on above: Result Comment: Canc elled via OM: Order cancelled - Patient discharged Performed By: #### L 500.2500, L100.0100 #### [facility] [address] [place], [address] CL Normal 98-107 [facility] Comment on above: Result Comment: Canc elled via OM: Order cancelled - Patient discharged Performed By: #### L 500.2500, L100.0100 #### [facility] [address] [place], [address] CO2 Normal 21.0-32.0 [facility] Comment on above: Result Comment: Canc elled via OM: Order cancelled - Patient discharged Performed By: #### L 500.2500, L100.0100 #### [facility] [address] [place], [address] CREAT,SERUM Normal 0.70-1.30 [facility] Comment on above: Result Comment: Canc elled via OM: Order cancelled - Patient discharged Performed By: #### L 500.2500, L100.0100 #### [facility] [address] [place], [address] EST GFR Normal >60 [facility] Comment on above: Result Comment: Canc elled via OM: Order cancelled - Patient discharged Performed By: #### L 500.2500, L100.0100 #### [facility] [address] [place], [address] EST GFR - AA Normal >60 [facility] Comment on above: Result Comment: Canc elled via OM: Order cancelled - Patient discharged Performed By: #### L 500.2500, L100.0100 #### [facility] [address] [place], [address] GAP Normal 5-15 [facility] Comment on above: Result Comment: Canc elled via OM: Order cancelled - Patient discharged Performed By: #### L 500.2500, L100.0100 #### [facility] [address] [place], [address] GLU Normal 74-106 [facility] Comment on above: Result Comment: Canc elled via OM: Order cancelled - Patient discharged Performed By: #### L 500.2500, L100.0100 #### [facility] [address] [place], [address] Potassium Normal 3.5-5.1 [facility] Comment on above: Result Comment: Canc elled via OM: Order cancelled - Patient discharged Performed By: #### L 500.2500, L100.0100 #### [facility] [address] [place], [address] Basic Metabolic Profile (BMP) Normal 136-145 [facility] Comment on above: Result Comment: Canc elled via OM: Order cancelled - Patient discharged Performed By: #### L 500.2500, L100.0100 #### [facility] [address] [place], [address] CBC W/Diff, Automatedon 09-2 Absolute Neut Normal 2.0-7.7 [facility] Comment on above: Result Comment: Canc elled via OM: Order cancelled - Patient discharged Performed By: #### L 500.2500, L100.0100 #### [facility] [address] [place], [address] HCT Normal 40-54 [facility] Comment on above: Result Comment: Canc elled via OM: Order cancelled - Patient discharged Performed By: #### L 500.2500, L100.0100 #### [facility] [address] [place], [address] HGB Normal 13.0-16.5 [facility] Comment on above: Result Comment: Canc elled via OM: Order cancelled - Patient discharged Performed By: #### L 500.2500, L100.0100 #### [facility] [address] [place], [address] MCH Normal 27.0-32.0 [facility] Comment on above: Result Comment: Canc elled via OM: Order cancelled - Patient discharged Performed By: #### L 500.2500, L100.0100 #### [facility] [address] [place], [address] MCHC Normal 32-36 [facility] Comment on above: Result Comment: Canc elled via OM: Order cancelled - Patient discharged Performed By: #### L 500.2500, L100.0100 #### [facility] [address] [place], [address] MCV Normal 80-94 [facility] Comment on above: Result Comment: Canc elled via OM: Order cancelled - Patient discharged Performed By: #### L 500.2500, L100.0100 #### [facility] [address] [place], [address] NEUT% Normal 47-70 [facility] Comment on above: Result Comment: Canc elled via OM: Order cancelled - Patient discharged Performed By: #### L 500.2500, L100.0100 #### [facility] [address] [place], [address] PLT Normal 150-450 [facility] Comment on above: Result Comment: Canc elled via OM: Order cancelled - Patient discharged Performed By: #### L 500.2500, L100.0100 #### [facility] [address] [place], [address] RBC Normal 4.6-6.2 [facility] Comment on above: Result Comment: Canc elled via OM: Order cancelled - Patient discharged Performed By: #### L 500.2500, L100.0100 #### [facility] [address] [place], [address] RDW CV Normal 11.6-14.6 [facility] Comment on above: Result Comment: Canc elled via OM: Order cancelled - Patient discharged Performed By: #### L 500.2500, L100.0100 #### [facility] [address] [place], [address] RDW SD Normal 35.1-43.9 [facility] Comment on above: Result Comment: Canc elled via OM: Order cancelled - Patient discharged Performed By: #### L 500.2500, L100.0100 #### [facility] [address] [place], [address] WBC Normal 4.4-11.0 [facility] Comment on above: Result Comment: Canc elled via OM: Order cancelled - Patient discharged Performed By: #### L 500.2500, L100.0100 #### [facility] [address] [place], [address] Basic Metabolic Profile (BMP )on 07-22-2024 BUN Normal 7-18 [facility] Comment on above: Result Comment: Canc elled via OM: Order cancelled - Patient discharged Performed By: #### L 501.4020, L100.0100, L500.2500 #### [facility] [address] [place], [address] BUN/CRE Normal 10-20 [facility] Comment on above: Result Comment: Canc elled via OM: Order cancelled - Patient discharged Performed By: #### L 501.4020, L100.0100, L500.2500 #### [facility] [address] [place], [address] CA,Total Normal 8.5-10.1 [facility] Comment on above: Result Comment: Canc elled via OM: Order cancelled - Patient discharged Performed By: #### L 501.4020, L100.0100, L500.2500 #### [facility] [address] [place], [address] CL Normal 98-107 [facility] Comment on above: Result Comment: Canc elled via OM: Order cancelled - Patient discharged Performed By: #### L 501.4020, L100.0100, L500.2500 #### [facility] [address] [place], [address] CO2 Normal 21.0-32.0 [facility] Comment on above: Result Comment: Canc elled via OM: Order cancelled - Patient discharged Performed By: #### L 501.4020, L100.0100, L500.2500 #### [facility] [address] [place], [address] CREAT,SERUM Normal 0.70-1.30 [facility] Comment on above: Result Comment: Canc elled via OM: Order cancelled - Patient discharged Performed By: #### L 501.4020, L100.0100, L500.2500 #### [facility] [address] [place], [address] EST GFR Normal >60 [facility] Comment on above: Result Comment: Canc elled via OM: Order cancelled - Patient discharged Performed By: #### L 501.4020, L100.0100, L500.2500 #### [facility] [address] [place], [address] EST GFR - AA Normal >60 [facility] Comment on above: Result Comment: Canc elled via OM: Order cancelled - Patient discharged Performed By: #### L 501.4020, L100.0100, L500.2500 #### [facility] [address] [place], [address] GAP Normal 5-15 [facility] Comment on above: Result Comment: Canc elled via OM: Order cancelled - Patient discharged Performed By: #### L 501.4020, L100.0100, L500.2500 #### [facility] [address] [place], [address] GLU Normal 74-106 [facility] Comment on above: Result Comment: Canc elled via OM: Order cancelled - Patient discharged Performed By: #### L 501.4020, L100.0100, L500.2500 #### [facility] [address] [place], [address] Potassium Normal 3.5-5.1 [facility] Comment on above: Result Comment: Canc elled via OM: Order cancelled - Patient discharged Performed By: #### L 501.4020, L100.0100, L500.2500 #### [facility] [address] [place], [address] Basic Metabolic Profile (BMP) Normal 136-145 [facility] Comment on above: Result Comment: Canc elled via OM: Order cancelled - Patient discharged Performed By: #### L 501.4020, L100.0100, L500.2500 #### [facility] [address] [place], [address] CBC W/Diff, Automatedon 07-01 Absolute Neut Normal 2.0-7.7 [facility] Comment on above: Result Comment: Canc elled via OM: Order cancelled - Patient discharged Performed By: #### L 501.4020, L100.0100, L500.2500 #### [facility] [address] [place], [address] HCT Normal 40-54 [facility] Comment on above: Result Comment: Canc elled via OM: Order cancelled - Patient discharged Performed By: #### L 501.4020, L100.0100, L500.2500 #### [facility] [address] [place], [address] HGB Normal 13.0-16.5 [facility] Comment on above: Result Comment: Canc elled via OM: Order cancelled - Patient discharged Performed By: #### L 501.4020, L100.0100, L500.2500 #### [facility] [address] [place], [address] MCH Normal 27.0-32.0 [facility] Comment on above: Result Comment: Canc elled via OM: Order cancelled - Patient discharged Performed By: #### L 501.4020, L100.0100, L500.2500 #### [facility] [address] [place], [address] MCHC Normal 32-36 [facility] Comment on above: Result Comment: Canc elled via OM: Order cancelled - Patient discharged Performed By: #### L 501.4020, L100.0100, L500.2500 #### [facility] [address] [place], [address] MCV Normal 80-94 [facility] Comment on above: Result Comment: Canc elled via OM: Order cancelled - Patient discharged Performed By: #### L 501.4020, L100.0100, L500.2500 #### [facility] [address] [place], [address] NEUT% Normal 47-70 [facility] Comment on above: Result Comment: Canc elled via OM: Order cancelled - Patient discharged Performed By: #### L 501.4020, L100.0100, L500.2500 #### [facility] [address] [place], [address] PLT Normal 150-450 [facility] Comment on above: Result Comment: Canc elled via OM: Order cancelled - Patient discharged Performed By: #### L 501.4020, L100.0100, L500.2500 #### [facility] [address] [place], [address] RBC Normal 4.6-6.2 [facility] Comment on above: Result Comment: Canc elled via OM: Order cancelled - Patient discharged Performed By: #### L 501.4020, L100.0100, L500.2500 #### [facility] [address] [place], [address] RDW CV Normal 11.6-14.6 [facility] Comment on above: Result Comment: Canc elled via OM: Order cancelled - Patient discharged Performed By: #### L 501.4020, L100.0100, L500.2500 #### [facility] [address] [place], [address] RDW SD Normal 35.1-43.9 [facility] Comment on above: Result Comment: Canc elled via OM: Order cancelled - Patient discharged Performed By: #### L 501.4020, L100.0100, L500.2500 #### [facility] [address] [place], [address] WBC Normal 4.4-11.0 [facility] Comment on above: Result Comment: Canc elled via OM: Order cancelled - Patient discharged Performed By: #### L 501.4020, L100.0100, L500.2500 #### [facility] [address] [place], [address] Basic Metabolic Profile (BMP )on 07-21-2024 BUN Normal 7-18 [facility] Comment on above: Result Comment: Canc elled via OM: Order cancelled - Patient discharged Performed By: #### L 500.2500, L100.0100 #### [facility] [address] [place], [address] BUN/CRE Normal 10-20 [facility] Comment on above: Result Comment: Canc elled via OM: Order cancelled - Patient discharged Performed By: #### L 500.2500, L100.0100 #### [facility] [address] [place], [address] CA,Total Normal 8.5-10.1 [facility] Comment on above: Result Comment: Canc elled via OM: Order cancelled - Patient discharged Performed By: #### L 500.2500, L100.0100 #### [facility] [address] [place], [address] CL Normal 98-107 [facility] Comment on above: Result Comment: Canc elled via OM: Order cancelled - Patient discharged Performed By: #### L 500.2500, L100.0100 #### [facility] [address] [place], [address] CO2 Normal 21.0-32.0 [facility] Comment on above: Result Comment: Canc elled via OM: Order cancelled - Patient discharged Performed By: #### L 500.2500, L100.0100 #### [facility] [address] [place], [address] CREAT,SERUM Normal 0.70-1.30 [facility] Comment on above: Result Comment: Canc elled via OM: Order cancelled - Patient discharged Performed By: #### L 500.2500, L100.0100 #### [facility] [address] [place], [address] EST GFR Normal >60 [facility] Comment on above: Result Comment: Canc elled via OM: Order cancelled - Patient discharged Performed By: #### L 500.2500, L100.0100 #### [facility] [address] [place], [address] EST GFR - AA Normal >60 [facility] Comment on above: Result Comment: Canc elled via OM: Order cancelled - Patient discharged Performed By: #### L 500.2500, L100.0100 #### [facility] [address] [place], [address] GAP Normal 5-15 [facility] Comment on above: Result Comment: Canc elled via OM: Order cancelled - Patient discharged Performed By: #### L 500.2500, L100.0100 #### [facility] [address] [place], [address] GLU Normal 74-106 [facility] Comment on above: Result Comment: Canc elled via OM: Order cancelled - Patient discharged Performed By: #### L 500.2500, L100.0100 #### [facility] [address] [place], [address] Potassium Normal 3.5-5.1 [facility] Comment on above: Result Comment: Canc elled via OM: Order cancelled - Patient discharged Performed By: #### L 500.2500, L100.0100 #### [facility] [address] [place], [address] Basic Metabolic Profile (BMP) Normal 136-145 [facility] Comment on above: Result Comment: Canc elled via OM: Order cancelled - Patient discharged Performed By: #### L 500.2500, L100.0100 #### [facility] [address] [place], [address] CBC W/Diff, Automatedon - Absolute Neut Normal 2.0-7.7 [facility] Comment on above: Result Comment: Canc elled via OM: Order cancelled - Patient discharged Performed By: #### L 500.2500, L100.0100 #### [facility] [address] [place], [address] HCT Normal 40-54 [facility] Comment on above: Result Comment: Canc elled via OM: Order cancelled - Patient discharged Performed By: #### L 500.2500, L100.0100 #### [facility] [address] [place], [address] HGB Normal 13.0-16.5 [facility] Comment on above: Result Comment: Canc elled via OM: Order cancelled - Patient discharged Performed By: #### L 500.2500, L100.0100 #### [facility] [address] [place], [address] MCH Normal 27.0-32.0 [facility] Comment on above: Result Comment: Canc elled via OM: Order cancelled - Patient discharged Performed By: #### L 500.2500, L100.0100 #### [facility] [address] [place], [address] MCHC Normal 32-36 [facility] Comment on above: Result Comment: Canc elled via OM: Order cancelled - Patient discharged Performed By: #### L 500.2500, L100.0100 #### [facility] [address] [place], [address] MCV Normal 80-94 [facility] Comment on above: Result Comment: Canc elled via OM: Order cancelled - Patient discharged Performed By: #### L 500.2500, L100.0100 #### [facility] [address] [place], [address] NEUT% Normal 47-70 [facility] Comment on above: Result Comment: Canc elled via OM: Order cancelled - Patient discharged Performed By: #### L 500.2500, L100.0100 #### [facility] [address] [place], [address] PLT Normal 150-450 [facility] Comment on above: Result Comment: Canc elled via OM: Order cancelled - Patient discharged Performed By: #### L 500.2500, L100.0100 #### [facility] [address] [place], [address] RBC Normal 4.6-6.2 [facility] Comment on above: Result Comment: Canc elled via OM: Order cancelled - Patient discharged Performed By: #### L 500.2500, L100.0100 #### [facility] [address] [place], [address] RDW CV Normal 11.6-14.6 [facility] [facility] Comment on above: Result Comment: Canc elled via OM: Order cancelled - Patient discharged Performed By: #### L 500.2500, L100.0100 #### [facility] [address] [place], [address] RDW SD Normal 35.1-43.9 [facility] Comment on above: Result Comment: Canc elled via OM: Order cancelled - Patient discharged Performed By: #### L 500.2500, L100.0100 #### [facility] [address] [place], [address] WBC Normal 4.4-11.0 [facility] Comment on above: Result Comment: Canc elled via OM: Order cancelled - Patient discharged Performed By: #### L 500.2500, L100.0100 #### [facility] [address] [place], [address] Basic Metabolic Profile (BMP )on 07-20-2024 BUN Normal 7-18 [facility] Comment on above: Result Comment: Canc elled via OM: Order cancelled - Patient discharged Performed By: #### L 501.4020, L100.0100, L500.2500 #### [facility] [address] [place], [address] BUN/CRE Normal 10-20 [facility] Comment on above: Result Comment: Canc elled via OM: Order cancelled - Patient discharged Performed By: #### L 501.4020, L100.0100, L500.2500 #### [facility] [address] [place], [address] CA,Total Normal 8.5-10.1 [facility] Comment on above: Result Comment: Canc elled via OM: Order cancelled - Patient discharged Performed By: #### L 501.4020, L100.0100, L500.2500 #### [facility] [address] [place], [address] CL Normal 98-107 [facility] Comment on above: Result Comment: Canc elled via OM: Order cancelled - Patient discharged Performed By: #### L 501.4020, L100.0100, L500.2500 #### [facility] [address] [place], [address] CO2 Normal 21.0-32.0 [facility] Comment on above: Result Comment: Canc elled via OM: Order cancelled - Patient discharged Performed By: #### L 501.4020, L100.0100, L500.2500 #### [facility] [address] [place], [address] CREAT,SERUM Normal 0.70-1.30 [facility] Comment on above: Result Comment: Canc elled via OM: Order cancelled - Patient discharged Performed By: #### L 501.4020, L100.0100, L500.2500 #### [facility] [address] [place], [address] EST GFR Normal >60 [facility] Comment on above: Result Comment: Canc elled via OM: Order cancelled - Patient discharged Performed By: #### L 501.4020, L100.0100, L500.2500 #### [facility] [address] [place], [address] EST GFR - AA Normal >60 [facility] Comment on above: Result Comment: Canc elled via OM: Order cancelled - Patient discharged Performed By: #### L 501.4020, L100.0100, L500.2500 #### [facility] [address] [place], [address] GAP Normal 5-15 [facility] Comment on above: Result Comment: Canc elled via OM: Order cancelled - Patient discharged Performed By: #### L 501.4020, L100.0100, L500.2500 #### [facility] [address] [place], [address] GLU Normal 74-106 [facility] Comment on above: Result Comment: Canc elled via OM: Order cancelled - Patient discharged Performed By: #### L 501.4020, L100.0100, L500.2500 #### [facility] [address] [place], [address] Potassium Normal 3.5-5.1 [facility] Comment on above: Result Comment: Canc elled via OM: Order cancelled - Patient discharged Performed By: #### L 501.4020, L100.0100, L500.2500 #### [facility] [address] [place], [address] Basic Metabolic Profile (BMP) Normal 136-145 [facility] Comment on above: Result Comment: Canc elled via OM: Order cancelled - Patient discharged Performed By: #### L 501.4020, L100.0100, L500.2500 #### [facility] [address] [place], [address] CBC W/Diff, Automatedon 09-2 Absolute Neut Normal 2.0-7.7 [facility] Comment on above: Result Comment: Canc elled via OM: Order cancelled - Patient discharged Performed By: #### L 501.4020, L100.0100, L500.2500 #### [facility] [address] [place], [address] HCT Normal 40-54 [facility] Comment on above: Result Comment: Canc elled via OM: Order cancelled - Patient discharged Performed By: #### L 501.4020, L100.0100, L500.2500 #### [facility] [address] [place], [address] HGB Normal 13.0-16.5 [facility] Comment on above: Result Comment: Canc elled via OM: Order cancelled - Patient discharged Performed By: #### L 501.4020, L100.0100, L500.2500 #### [facility] [address] [place], [address] MCH Normal 27.0-32.0 [facility] Comment on above: Result Comment: Canc elled via OM: Order cancelled - Patient discharged Performed By: #### L 501.4020, L100.0100, L500.2500 #### [facility] [address] [place], [address] MCHC Normal 32-36 [facility] Comment on above: Result Comment: Canc elled via OM: Order cancelled - Patient discharged Performed By: #### L 501.4020, L100.0100, L500.2500 #### [facility] [address] [place], [address] MCV Normal 80-94 [facility] Comment on above: Result Comment: Canc elled via OM: Order cancelled - Patient discharged Performed By: #### L 501.4020, L100.0100, L500.2500 #### [facility] [address] [place], [address] NEUT% Normal 47-70 [facility] Comment on above: Result Comment: Canc elled via OM: Order cancelled - Patient discharged Performed By: #### L 501.4020, L100.0100, L500.2500 #### [facility] [address] [place], [address] PLT Normal 150-450 [facility] Comment on above: Result Comment: Canc elled via OM: Order cancelled - Patient discharged Performed By: #### L 501.4020, L100.0100, L500.2500 #### [facility] [address] [place], [address] RBC Normal 4.6-6.2 [facility] Comment on above: Result Comment: Canc elled via OM: Order cancelled - Patient discharged Performed By: #### L 501.4020, L100.0100, L500.2500 #### [facility] [address] [place], [address] RDW CV Normal 11.6-14.6 [facility] Comment on above: Result Comment: Canc elled via OM: Order cancelled - Patient discharged Performed By: #### L 501.4020, L100.0100, L500.2500 #### [facility] [address] [place], [address] RDW SD Normal 35.1-43.9 [facility] Comment on above: Result Comment: Canc elled via OM: Order cancelled - Patient discharged Performed By: #### L 501.4020, L100.0100, L500.2500 #### [facility] [address] [place], [address] WBC Normal 4.4-11.0 [facility] Comment on above: Result Comment: Canc elled via OM: Order cancelled - Patient discharged Performed By: #### L 501.4020, L100.0100, L500.2500 #### [facility] [address] [place], [address] Basic Metabolic Profile (BMP )on 07-19-2024 BUN/CRE 20.5 RATIO High 10-20 [facility] Comment on above: Performed By: #### L 501.4020, L100.0100, L500.2500 #### [facility] [address] [place], [address] CA,Total 8.7 mg/dL Normal 8.5-10.1 [facility] Comment on above: Performed By: #### L 501.4020, L100.0100, L500.2500 #### [facility] [address] [place], [address] Chloride [Moles/Vol] 108 mmol/L High 98-107 [facility] Comment on above: Performed By: #### L 501.4020, L100.0100, L500.2500 #### [facility] [address] [place], [address] CO2 [Moles/Vol] 27.0 mmol/L Normal 21.0-32.0 [facility] Comment on above: Performed By: #### L 501.4020, L100.0100, L500.2500 #### [facility] [address] [place], [address] Creatinine [Mass/Vol] 0.78 mg/dL Normal 0.70-1.30 [facility] Comment on above: Result Comment: The validity of the calculated GFR GFRAA in patients over 70 years has not been determined. Clinical correlation is essential. Performed By: #### L 501.4020, L100.0100, L500.2500 #### [facility] [address] [place], [address] ECRCL 123.09 ml/min Normal [facility] Comment on above: Performed By: #### L 501.4020, L100.0100, L500.2500 #### [facility] [address] [place], [address] EST GFR - AA 131 mL/min Normal >60 [facility] Comment on above: Result Comment: Afri can Taiwanese GFR Calc Performed By: #### L 501.4020, L100.0100, L500.2500 #### [facility] [address] [place], [address] GAP 5 Normal 5-15 [facility] Comment on above: Performed By: #### L 501.4020, L100.0100, L500.2500 #### [facility] [address] [place], [address] GFR/1.73 sq M.predicted among non-blacks MDRD (S/P/Bld) [Vol rate/Area] 108 mL/min/{1.73_m2} Normal >60 [facility] Comment on above: Result Comment: Non- GFR Calc Performed By: #### L 501.4020, L100.0100, L500.2500 #### [facility] [address] [place], [address] Glucose [Mass/Vol] 121 mg/dL High 74-106 [facility] Comment on above: Result Comment: Fast ing Glucose result from 100 to 125 mg/dL suggests IMPAIRED HOMEOSTASIS per A.D.A. criteria. Performed By: #### L 501.4020, L100.0100, L500.2500 #### [facility] [address] [place], [address] Potassium [Moles/Vol] 4.0 mmol/L Normal 3.5-5.1 [facility] Comment on above: Performed By: #### L 501.4020, L100.0100, L500.2500 #### [facility] [address] [place], [address] Sodium [Moles/Vol] 140 mmol/L Normal 136-145 [facility] Comment on above: Performed By: #### L 501.4020, L100.0100, L500.2500 #### [facility] [address] [place], [address] Urea nitrogen [Mass/Vol] 16 mg/dL Normal 7-18 [facility] Comment on above: Performed By: #### L 501.4020, L100.0100, L500.2500 #### [facility] [address] [place], [address] CBC W/Diff, Automatedon 09-2 0-2023 Absolute Lymph 1.39 X10 3/uL Normal 0.83-4.51 [facility] Comment on above: Performed By: #### L 501.4020, L100.0100, L500.2500 #### [facility] [address] [place], [address] Absolute Neut 10.1 X10 3/uL High 2.0-7.7 [facility] Comment on above: Performed By: #### L 501.4020, L100.0100, L500.2500 #### [facility] [address] [place], [address] Basophils/100 WBC (Bld) 0.2 % Normal 0-1 [facility] Comment on above: Performed By: #### L 501.4020, L100.0100, L500.2500 #### [facility] [address] [place], [address] Eosinophils/100 WBC (Bld) 0.0 % Normal 0-5 [facility] Comment on above: Performed By: #### L 501.4020, L100.0100, L500.2500 #### [facility] [address] [place], [address] Erythrocyte distribution width (RBC) [Ratio] 13.2 % Normal 11.6-14.6 [facility] Comment on above: Performed By: #### L 501.4020, L100.0100, L500.2500 #### [facility] [address] [place], [address] Hematocrit (Bld) [Volume fraction] 43.7 % Normal 40-54 [facility] Comment on above: Performed By: #### L 501.4020, L100.0100, L500.2500 #### [facility] [address] [place], [address] Hemoglobin (Bld) [Mass/Vol] 14.6 g/dL Normal 13.0-16.5 [facility] Comment on above: Performed By: #### L 501.4020, L100.0100, L500.2500 #### [facility] [address] [place], [address] IG% 0.500 Normal 0.0-0.9 [facility] Comment on above: Result Comment: IG% - Immature Granulocytes (promyelocytes, myelocytes and metamyelocytes) > 1% indicates that a LEFT SHIFT is Present. Performed By: #### L 501.4020, L100.0100, L500.2500 #### [facility] [address] [place], [address] Lymphocytes/100 WBC (Bld) 11.5 % Low 19-41 [facility] Comment on above: Performed By: #### L 501.4020, L100.0100, L500.2500 #### [facility] [address] [place], [address] MCH (RBC) [Entitic mass] 31.8 pg Normal 27.0-32.0 [facility] Comment on above: Performed By: #### L 501.4020, L100.0100, L500.2500 #### [facility] [address] [place], [address] MCHC (RBC) [Mass/Vol] 33.4 g/dL Normal 32-36 [facility] Comment on above: Performed By: #### L 501.4020, L100.0100, L500.2500 #### [facility] [address] [place], [address] MCV (RBC) [Entitic vol] 95.2 fL High 80-94 [facility] Comment on above: Performed By: #### L 501.4020, L100.0100, L500.2500 #### [facility] [address] [place], [address] Monocytes/100 WBC (Bld) 4.8 % Normal 0-10 [facility] Comment on above: Performed By: #### L 501.4020, L100.0100, L500.2500 #### [facility] [address] [place], [address] Neutrophils/100 WBC (Bld) 83.0 % High 47-70 [facility] Comment on above: Performed By: #### L 501.4020, L100.0100, L500.2500 #### [facility] [address] [place], [address] Nucleated RBC (Bld) [#/Vol] 0 10*3/uL Normal 0-5 [facility] Comment on above: Performed By: #### L 501.4020, L100.0100, L500.2500 #### [facility] [address] [place], [address] Platelet mean volume (Bld) [Entitic vol] 9.9 fL Normal 6.2-12.0 [facility] Comment on above: Performed By: #### L 501.4020, L100.0100, L500.2500 #### [facility] [address] [place], [address] Platelets (Bld) [#/Vol] 211 10*3/uL Normal 150-450 [facility] Comment on above: Performed By: #### L 501.4020, L100.0100, L500.2500 #### [facility] [address] [place], [address] RBC (Bld) [#/Vol] 4.59 10*6/uL Low 4.6-6.2 [facility] Comment on above: Performed By: #### L 501.4020, L100.0100, L500.2500 #### [facility] [address] [place], [address] RDW SD 46.4 fl High 35.1-43.9 [facility] Comment on above: Performed By: #### L 501.4020, L100.0100, L500.2500 #### [facility] [address] [place], [address] WBC (Bld) [#/Vol] 12.1 10*3/uL High 4.4-11.0 [facility] Comment on above: Performed By: #### L 501.4020, L100.0100, L500.2500 #### [facility] [address] [place], [address] Discharge Instructionon 07-01 Discharge Instruction [facility] Medical Records Department [address] [place] [address] Instructions for Home/Discharge Instructions 07/19/24 1129 MR#: [id number] Acct: [id number] Name: VIC BALLESTEROS Jr. Rep #: [id number] : 1965 58 From: Magali Bass MD PCP: Dr. Myah Arteaga MD Status:ADM IN Discharge Instructions Diet Discharge Diet: Low fat / Low cholesterol Activity Discharge Activity: Return to Normal Activity Weight Bearing Status: Weight bearing as tolerated Dressing / Incision Call your doctor if you observe: Fever of 101 or Higher, Shortness of breath, Dizziness, Swelling in the ankles and Chest pain Follow Up Care Test Results: Test results from this visit will be discussed in further detail at your follow-up appointment, if applicable. Discharge Plan Admission Admit Date/Time: 07/17/24 20:34 Primary Reason for Your Visit: covid 19 infection Attending Provider: Magali Bass Primary Care Provider: Myah Arteaga Consulting Providers: Madhuri Gregg Instructions Patient Instructions: Coronavirus Disease 2019 (COVID-19): Overview Discharge Orders/Prescriptions Prescriptions: New dexamethasone 6 mg tablet 6 mg PO DAILY Qty: 8 0RF Continued tadalafil 20 mg tablet 20 mg PO ONCE PRN (Reason: ed) acetaminophen 500 mg tablet 500 mg PO Q6H PRN (Reason: fever or pain) clonazepam 1 mg tablet 1 mg PO QHS PRN PRN (Reason: sleep) ergocalciferol (vitamin D2) [Vitamin D2] 1,250 mcg (50,000 unit) capsule 1,250 mcg PO QWEEK losartan 50 mg tablet 50 mg PO DAILY testosterone 1 % (25 mg/2.5gram) gel in packet transdermal tramadol 50 mg tablet 50 mg PO BID PRN PRN (Reason: pain) Referrals / Follow Up: Myah Arteaga MD [Primary Care Provider] - Within 1 Week Disposition Disposition (needs filled in before D/C Order can be placed): Home, Self Care 07/19/24 1130 Magali Bass MD CC: Dr. Madhuri Gregg MD; Dr. Myah Arteaga MD Signed Normal [facility] CBC W/Diff, Automatedon 09- Absolute Lymph 0.86 X10 3/uL Normal 0.83-4.51 [facility] Comment on above: Performed By: #### L 500.2500, L100.0100 #### [facility] [address] [place], [address] Absolute Neut 7.3 X10 3/uL Normal 2.0-7.7 [facility] Comment on above: Performed By: #### L 500.2500, L100.0100 #### [facility] [address] [place], [address] Basophils/100 WBC (Bld) 0.1 % Normal 0-1 [facility] Comment on above: Performed By: #### L 500.2500, L100.0100 #### [facility] [address] [place], [address] Eosinophils/100 WBC (Bld) 0.0 % Normal 0-5 [facility] Comment on above: Performed By: #### L 500.2500, L100.0100 #### [facility] [address] [place], [address] Erythrocyte distribution width (RBC) [Ratio] 13.2 % Normal 11.6-14.6 [facility] Comment on above: Performed By: #### L 500.2500, L100.0100 #### [facility] [address] [place], [address] Hematocrit (Bld) [Volume fraction] 42.2 % Normal 40-54 [facility] Comment on above: Performed By: #### L 500.2500, L100.0100 #### [facility] [address] [place], [address] Hemoglobin (Bld) [Mass/Vol] 14.1 g/dL Normal 13.0-16.5 [facility] Comment on above: Performed By: #### L 500.2500, L100.0100 #### [facility] [address] [place], [address] IG% 0.400 Normal 0.0-0.9 [facility] Comment on above: Result Comment: IG% - Immature Granulocytes (promyelocytes, myelocytes and metamyelocytes) > 1% indicates that a LEFT SHIFT is Present. Performed By: #### L 500.2500, L100.0100 #### [facility] [address] [place], [address] Lymphocytes/100 WBC (Bld) 10.3 % Low 19-41 [facility] Comment on above: Performed By: #### L 500.2500, L100.0100 #### [facility] [address] [place], [address] MCH (RBC) [Entitic mass] 32.0 pg Normal 27.0-32.0 [facility] Comment on above: Performed By: #### L 500.2500, L100.0100 #### [facility] [address] [place], [address] MCHC (RBC) [Mass/Vol] 33.4 g/dL Normal 32-36 [facility] Comment on above: Performed By: #### L 500.2500, L100.0100 #### [facility] [address] [place], [address] MCV (RBC) [Entitic vol] 95.7 fL High 80-94 [facility] Comment on above: Performed By: #### L 500.2500, L100.0100 #### [facility] [address] [place], [address] Monocytes/100 WBC (Bld) 2.3 % Normal 0-10 [facility] Comment on above: Performed By: #### L 500.2500, L100.0100 #### [facility] [address] [place], [address] Neutrophils/100 WBC (Bld) 86.9 % High 47-70 [facility] Comment on above: Performed By: #### L 500.2500, L100.0100 #### [facility] [address] [place], [address] Nucleated RBC (Bld) [#/Vol] 0 10*3/uL Normal 0-5 [facility] Comment on above: Performed By: #### L 500.2500, L100.0100 #### [facility] [address] [place], [address] Platelet mean volume (Bld) [Entitic vol] 9.8 fL Normal 6.2-12.0 [facility] Comment on above: Performed By: #### L 500.2500, L100.0100 #### [facility] [address] [place], [address] Platelets (Bld) [#/Vol] 174 10*3/uL Normal 150-450 [facility] Comment on above: Performed By: #### L 500.2500, L100.0100 #### [facility] [address] [place], [address] RBC (Bld) [#/Vol] 4.41 10*6/uL Low 4.6-6.2 [facility] Comment on above: Performed By: #### L 500.2500, L100.0100 #### [facility] [address] [place], [address] RDW SD 46.5 fl High 35.1-43.9 [facility] Comment on above: Performed By: #### L 500.2500, L100.0100 #### [facility] [address] [place], [address] WBC (Bld) [#/Vol] 8.4 10*3/uL Normal 4.4-11.0 [facility] Comment on above: Performed By: #### L 500.2500, L100.0100 #### [facility] [address] [place], [address] Comprehensive Metabolic Prof ilon 07-18-2024 Albumin [Mass/Vol] 3.0 g/dL Low 3.2-5.0 [facility] Comment on above: Performed By: #### L 500.2500, L100.0100 #### [facility] [address] [place], [address] Albumin/Globulin [Mass ratio] 0.8 {ratio} Low 0.9-2.4 [facility] Comment on above: Performed By: #### L 500.2500, L100.0100 #### [facility] [address] [place], [address] ALK P 50 U/L Normal 45-117 [facility] Comment on above: Performed By: #### L 500.2500, L100.0100 #### [facility] [address] [place], [address] ALT [Catalytic activity/Vol] 22 U/L Normal 16-61 [facility] Comment on above: Performed By: #### L 500.2500, L100.0100 #### [facility] [address] [place], [address] AST [Catalytic activity/Vol] 18 U/L Normal 15-37 [facility] Comment on above: Performed By: #### L 500.2500, L100.0100 #### [facility] [address] [place], [address] Bilirubin [Mass/Vol] 0.30 mg/dL Normal 0.20-1.00 [facility] Comment on above: Result Comment: For patients on eltrombopag therapy, use of Dimension [place] TBIL is not recommended. Performed By: #### L 500.2500, L100.0100 #### [facility] [address] [place], [address] BUN/CRE 15.1 RATIO Normal 10-20 [facility] Comment on above: Performed By: #### L 500.2500, L100.0100 #### [facility] [address] [place], [address] CA,Total 8.0 mg/dL Low 8.5-10.1 [facility] Comment on above: Performed By: #### L 500.2500, L100.0100 #### [facility] [address] [place], [address] Chloride [Moles/Vol] 108 mmol/L High 98-107 [facility] Comment on above: Performed By: #### L 500.2500, L100.0100 #### [facility] [address] [place], [address] CO2 [Moles/Vol] 26.0 mmol/L Normal 21.0-32.0 [facility] Comment on above: Performed By: #### L 500.2500, L100.0100 #### [facility] [address] [place], [address] Creatinine [Mass/Vol] 0.66 mg/dL Low 0.70-1.30 [facility] Comment on above: Result Comment: The validity of the calculated GFR GFRAA in patients over 70 years has not been determined. Clinical correlation is essential. Performed By: #### L 500.2500, L100.0100 #### [facility] [address] [place], [address] ECRCL 145.61 ml/min Normal [facility] Comment on above: Performed By: #### L 500.2500, L100.0100 #### [facility] [address] [place], [address] EST GFR - AA 159 mL/min Normal >60 [facility] Comment on above: Result Comment: Afri can Taiwanese GFR Calc Performed By: #### L 500.2500, L100.0100 #### [facility] [address] [place], [address] GAP 3 Low 5-15 [facility] Comment on above: Performed By: #### L 500.2500, L100.0100 #### [facility] [address] [place], [address] GFR/1.73 sq M.predicted among non-blacks MDRD (S/P/Bld) [Vol rate/Area] 131 mL/min/{1.73_m2} Normal >60 [facility] Comment on above: Result Comment: Non- GFR Calc Performed By: #### L 500.2500, L100.0100 #### [facility] [address] [place], [address] Globulin (S) [Mass/Vol] 3.7 g/dL Normal 2.2-4.2 [facility] Comment on above: Performed By: #### L 500.2500, L100.0100 #### [facility] [address] [place], [address] Glucose [Mass/Vol] 137 mg/dL High 74-106 [facility] Comment on above: Result Comment: Fast ing Glucose result greater than or equal to 126 mg/dL suggests DIABETES MELLITUS per A.D.A. criteria. Performed By: #### L 500.2500, L100.0100 #### [facility] [address] [place], [address] Potassium [Moles/Vol] 4.2 mmol/L Normal 3.5-5.1 [facility] Comment on above: Performed By: #### L 500.2500, L100.0100 #### [facility] [address] [place], [address] Sodium [Moles/Vol] 137 mmol/L Normal 136-145 [facility] Comment on above: Performed By: #### L 500.2500, L100.0100 #### [facility] [address] [place], [address] T PROT 6.7 g/dL Normal 6.4-8.2 [facility] Comment on above: Performed By: #### L 500.2500, L100.0100 #### [facility] [address] [place], [address] Urea nitrogen [Mass/Vol] 10 mg/dL Normal 7-18 [facility] Comment on above: Performed By: #### L 500.2500, L100.0100 #### [facility] [address] [place], [address] 12 Lead EKGon 07-17-2024 12 Lead EKG [facility] Cardiovascular Services [address] [place] [address] 12 Lead EKG 07/17/24 1755 MR#: [id number] Acct: [id number] Name: VIC BALLESTEROS Rep #: [id number] : 1965 58 From: Rivera Barnes MD Attending Dr: Dr. Magali Bass MD Status: DI S IN Ordering Dr: Leatha Leyva DO Date: 07/17/24 Location: ICU Sex: M C Admitted: 07/17/24 Test Reason : CP Blood Pressure : / mmHG Vent. Rate : 094 BPM Atrial Rate : 094 BPM P-R Int : 166 ms QRS Dur : 080 ms QT Int : 348 ms P-R-T Axes : 071 021 049 degrees QTc Int : 435 ms Normal sinus rhythm Normal ECG Confirmed by Rivera Barnes ([id number]), sound editor JAKE AVILES ([id number]) on 07/22/2024 10:42:22 AM Referred By: LASHELL/SAMANTHA Confirmed By:Rivera Barnes 07/22/24 1042 Date Rivera Barnes MD CC: Dr. Leatha Leyva DO; Dr. Magali Bass MD; Dr. Myah Arteaga MD Signed Normal [facility] BNP,B-Type NATRIURETIC PEPTI Feliberto 07-17-2024 Natriuretic peptide B (Bld) [Mass/Vol] 8.1 pg/mL Normal 0-100 [facility] Comment on above: Performed By: #### L 501.4020, L100.0100, L500.2500 #### [facility] [address] [place], [address] Basic Metabolic Profile (BMP )on 07-17-2024 BUN/CRE 9.8 RATIO Low 10-20 [facility] Comment on above: Order Comment: 'TROP ' Serial specimen #1, #2 or #3: 1 Performed By: #### L 501.4020, L100.0100, L500.2500 #### [facility] [address] [place], [address] CA,Total 9.5 mg/dL Normal 8.5-10.1 [facility] Comment on above: Order Comment: 'TROP ' Serial specimen #1, #2 or #3: 1 Performed By: #### L 501.4020, L100.0100, L500.2500 #### [facility] [address] [place], [address] Chloride [Moles/Vol] 100 mmol/L Normal 98-107 [facility] Comment on above: Order Comment: 'TROP ' Serial specimen #1, #2 or #3: 1 Performed By: #### L 501.4020, L100.0100, L500.2500 #### [facility] [address] [place], [address] CO2 [Moles/Vol] 27.0 mmol/L Normal 21.0-32.0 [facility] Comment on above: Order Comment: 'TROP ' Serial specimen #1, #2 or #3: 1 Performed By: #### L 501.4020, L100.0100, L500.2500 #### [facility] [address] [place], [address] Creatinine [Mass/Vol] 1.02 mg/dL Normal 0.70-1.30 [facility] Comment on above: Order Comment: 'TROP ' Serial specimen #1, #2 or #3: 1 Result Comment: The validity of the calculated GFR GFRAA in patients over 70 years has not been determined. Clinical correlation is essential. Performed By: #### L 501.4020, L100.0100, L500.2500 #### [facility] [address] [place], [address] ECRCL 94.22 ml/min Normal [facility] Comment on above: Order Comment: 'TROP ' Serial specimen #1, #2 or #3: 1 Performed By: #### L 501.4020, L100.0100, L500.2500 #### [facility] [address] [place], [address] EST GFR - AA 96 mL/min Normal >60 [facility] Comment on above: Order Comment: 'TROP ' Serial specimen #1, #2 or #3: 1 Result Comment: Afri can Taiwanese GFR Calc Performed By: #### L 501.4020, L100.0100, L500.2500 #### [facility] [address] [place], [address] GAP 8 Normal 5-15 [facility] Comment on above: Order Comment: 'TROP ' Serial specimen #1, #2 or #3: 1 Performed By: #### L 501.4020, L100.0100, L500.2500 #### [facility] [address] [place], [address] GFR/1.73 sq M.predicted among non-blacks MDRD (S/P/Bld) [Vol rate/Area] 80 mL/min/{1.73_m2} Normal >60 [facility] Comment on above: Order Comment: 'TROP ' Serial specimen #1, #2 or #3: 1 Result Comment: Non- GFR Calc Performed By: #### L 501.4020, L100.0100, L500.2500 #### [facility] [address] [place], [address] Glucose [Mass/Vol] 100 mg/dL Normal 74-106 [facility] Comment on above: Order Comment: 'TROP ' Serial specimen #1, #2 or #3: 1 Result Comment: Fast ing Glucose result from 100 to 125 mg/dL suggests IMPAIRED HOMEOSTASIS per A.D.A. criteria. Performed By: #### L 501.4020, L100.0100, L500.2500 #### [facility] [address] [place], [address] Potassium [Moles/Vol] 4.3 mmol/L Normal 3.5-5.1 [facility] Comment on above: Order Comment: 'TROP ' Serial specimen #1, #2 or #3: 1 Performed By: #### L 501.4020, L100.0100, L500.2500 #### [facility] [address] [place], [address] Sodium [Moles/Vol] 135 mmol/L Low 136-145 [facility] Comment on above: Order Comment: 'TROP ' Serial specimen #1, #2 or #3: 1 Performed By: #### L 501.4020, L100.0100, L500.2500 #### [facility] [address] [place], [address] Urea nitrogen [Mass/Vol] 10 mg/dL Normal 7-18 [facility] Comment on above: Order Comment: 'TROP ' Serial specimen #1, #2 or #3: 1 Performed By: #### L 501.4020, L100.0100, L500.2500 #### [facility] [address] [place], [address] CBC W/Diff, Automatedon 09-1 Absolute Lymph 1.41 X10 3/uL Normal 0.83-4.51 [facility] Comment on above: Performed By: #### L 501.4020, L100.0100, L500.2500 #### [facility] [address] [place], [address] Absolute Neut 9.1 X10 3/uL High 2.0-7.7 [facility] Comment on above: Performed By: #### L 501.4020, L100.0100, L500.2500 #### [facility] [address] [place], [address] Basophils/100 WBC (Bld) 0.3 % Normal 0-1 [facility] Comment on above: Performed By: #### L 501.4020, L100.0100, L500.2500 #### [facility] [address] [place], [address] Eosinophils/100 WBC (Bld) 0.2 % Normal 0-5 [facility] Comment on above: Performed By: #### L 501.4020, L100.0100, L500.2500 #### [facility] [address] [place], [address] Erythrocyte distribution width (RBC) [Ratio] 13.0 % Normal 11.6-14.6 [facility] Comment on above: Performed By: #### L 501.4020, L100.0100, L500.2500 #### [facility] [address] [place], [address] Hematocrit (Bld) [Volume fraction] 49.2 % Normal 40-54 [facility] Comment on above: Performed By: #### L 501.4020, L100.0100, L500.2500 #### [facility] [address] [place], [address] Hemoglobin (Bld) [Mass/Vol] 16.3 g/dL Normal 13.0-16.5 [facility] Comment on above: Performed By: #### L 501.4020, L100.0100, L500.2500 #### [facility] [address] [place], [address] IG% 0.300 Normal 0.0-0.9 [facility] Comment on above: Result Comment: IG% - Immature Granulocytes (promyelocytes, myelocytes and metamyelocytes) > 1% indicates that a LEFT SHIFT is Present. Performed By: #### L 501.4020, L100.0100, L500.2500 #### [facility] [address] [place], [address] Lymphocytes/100 WBC (Bld) 12.3 % Low 19-41 [facility] Comment on above: Performed By: #### L 501.4020, L100.0100, L500.2500 #### [facility] [address] [place], [address] MCH (RBC) [Entitic mass] 31.5 pg Normal 27.0-32.0 [facility] Comment on above: Performed By: #### L 501.4020, L100.0100, L500.2500 #### [facility] [address] [place], [address] MCHC (RBC) [Mass/Vol] 33.1 g/dL Normal 32-36 [facility] Comment on above: Performed By: #### L 501.4020, L100.0100, L500.2500 #### [facility] [address] [place], [address] MCV (RBC) [Entitic vol] 95.0 fL High 80-94 [facility] Comment on above: Performed By: #### L 501.4020, L100.0100, L500.2500 #### [facility] [address] [place], [address] Monocytes/100 WBC (Bld) 7.8 % Normal 0-10 [facility] Comment on above: Performed By: #### L 501.4020, L100.0100, L500.2500 #### [facility] [address] [place], [address] Neutrophils/100 WBC (Bld) 79.1 % High 47-70 [facility] Comment on above: Performed By: #### L 501.4020, L100.0100, L500.2500 #### [facility] [address] [place], [address] Nucleated RBC (Bld) [#/Vol] 0 10*3/uL Normal 0-5 [facility] Comment on above: Performed By: #### L 501.4020, L100.0100, L500.2500 #### [facility] [address] [place], [address] Platelet mean volume (Bld) [Entitic vol] 9.6 fL Normal 6.2-12.0 [facility] Comment on above: Performed By: #### L 501.4020, L100.0100, L500.2500 #### [facility] [address] [place], [address] Platelets (Bld) [#/Vol] 208 10*3/uL Normal 150-450 [facility] Comment on above: Performed By: #### L 501.4020, L100.0100, L500.2500 #### [facility] [address] [place], [address] RBC (Bld) [#/Vol] 5.18 10*6/uL Normal 4.6-6.2 [facility] Comment on above: Performed By: #### L 501.4020, L100.0100, L500.2500 #### [facility] [address] [place], [address] RDW SD 45.5 fl High 35.1-43.9 [facility] Comment on above: Performed By: #### L 501.4020, L100.0100, L500.2500 #### [facility] [address] [place], [address] WBC (Bld) [#/Vol] 11.5 10*3/uL High 4.4-11.0 [facility] Comment on above: Performed By: #### L 501.4020, L100.0100, L500.2500 #### [facility] [address] [place], [address] CPK Total, Creatine Kinaseon 07-17-2024 CPK TOTAL 139 U/L Normal 39-308 [facility] Comment on above: Order Comment: Comme nts: add to ED labs Comments: May add to ED labs may add to ED labs Performed By: #### L 503.6620, L504.2610, L500.3400, L300.8000, L509.7000, L501.3620, L503.6550, L501.6710 #### [facility] [address] [place], [address] CRPon 07-17-2024 C-REACTIVE PROT 85.00 mg/L High 0.0-3.0 [facility] Comment on above: Order Comment: Comme nts: add to ED labs Comments: May add to ED labs may add to ED labs Result Comment: C-Re active Protein (CRP) provides useful information for the diagnosis, therapy and monitoring of inflammatory processes and associated diseases. For the evaluation of Relative Risk for Cardiovascular Disease, a High Sensitivity CRP (HSCRP) should be ordered. Performed By: #### L 503.6620, L504.2610, L500.3400, L300.8000, L509.7000, L501.3620, L503.6550, L501.6710 #### [facility] [address] [place], [address] Chest 1 View (Portable)on Chest 1 View (Portable) [facility] Imaging Services [address] [address] Chest 1 View (Portable) MR#: [id number] Acct: [id number] Name: VIC BALLESTEROS Jr. Rep #: [id number] : 1965 M 58 From: Nikhil Garduno MD PCP: Dr. Myah Arteaga MD Status: PRE ER Study: Chest 1 View (Portable) Date of Exam: 07/17/24 Exam# [id number] Ordering Dr: Leatha Leyva DO [id number] STUDY: X-RAY CHEST REASON FOR EXAM: Male, 58 years old. SOB TECHNIQUE: AP port COMPARISON: May 12, 2011 FINDINGS: Bibasilar interstitial thickening in both lower lobes which may be consistent with viral pneumonia or bronchitis There is no demonstrated pleural abnormality. Normal size heart. Normal mediastinum and krystyna. Normal visualized pulmonary arteries. Normal visualized aortic arch and descending thoracic aorta. Normal visualized thoracic spine. Normal visualized ribs, clavicles, and shoulders. There is no demonstrated abnormality of the visualized soft tissue structures of the upper abdomen. RAD/Chest 1 View (Portable) IMPRESSION: Bibasilar interstitial thickening consistent with inflammatory changes Electronically Signed: Nikhil Garduno MD at 18:47 EDT , CC: Dr. Leatha Leyva DO; Dr. Myah Arteaga MD Milk Hauler: Signed Normal [facility] D-Dimer Quantitative (DVT/PE )on 07-17-2024 D-DIMER QUANT 0.59 FEU/ug/m Invalid Interpretation Code 0.27-0.49 [facility] Comment on above: Result Comment: D-Di brooks ELEVATED (>0.49): Additional studies and clinical assessments are indicated to conclude diagnosis of: Deep Vein Thrombosis (DVT) or Pulmonary Embolism (PE) CRITICAL VALUE CALLED TO MMARTIN 07/17/24 5124 Tenisha Freedman. RESULTS READ BACK BY SAME. Performed By: #### L 501.4020, L100.0100, L500.2500 #### [facility] [address] [facility] [place], [address] Emergency Department Summary on 07-17-2024 Emergency Department Summary [facility] Medical Records Department [address] [place] [address] Emergency Department Summary 07/17/24 MR#: [id number] Acct: [id number] Name: VIC BALLESTEROS JrCaitlyn Rep #: [id number] : 1965 58 From: Leatha Leyva DO PCP: Dr. 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 Patient states around Labor Day (16 days ago) he started feeling all ill. He notes that he was around a lot of wood smoke and was congested. Around that time he did have a fever. He followed up at [facility] urgent care where they did a chest x-ray that was clear and who put him on a course of doxycycline. It shows that patient had a 5-day course of doxycycline prescribed on 07/06/2024. He notes he was feeling better but then over the past few days has been feeling more ill again. He went back to urgent care today and was prescribed Levaquin. He said 1 dose of this so far. He reports developing fever over the past few days. Has had decreased appetite stating that he just had some toast yesterday and a slice of pizza last night. He has not had anything to eat today. He has been having some ongoing constipation but attributed to the antibiotics and decreased oral intake. Denies any nausea or vomiting. Denies abdominal pain. Does report chest pain but states it is from coughing and tightness. He states he has had some green sputum production. He did receive a breathing treatment at the office today which helped temporarily but then he felt like his breathing got worse. Has not taken a COVID test at home. [facility] Medical History Depression Anxiety Hypertension Home Medications ???Medication ???Instructions ???Recorded ???Last Taken ???Type tadalafil 20 mg tablet 20 mg PO ONCE PRN ed 03/20/18 Unknown History acetaminophen 500 mg tablet 500 mg PO Q6H PRN fever or pain 07/17/24 Unknown History losartan 25 mg tablet 50 mg PO DAILY 07/17/24 Unknown History Allergy/AdvReac Type Severity Reaction Status Date / Time Penicillins Allergy Rash Verified 07/17/24 17:50 Sulfa (Sulfonamide Allergy Rash Verified 07/17/24 17:50 Antibiotics) celecoxib (From Celebrex) AdvReac Rash Verified 07/17/24 17:50 Family History Father Cancer Mother CVA (cerebral vascular accident) Heart disease Surgical History History of cholecystectomy History of left hip replacement h/o wrist surgery Social History household members: none Smoking Status: Never smoker substance use type: does not use ROS ROS ED Constitutional Constitutional ED: Reports chills, fever(s) and sweats ENT ENT ED: Reports other Details: Nasal congestion ; Denies rhinorrhea or sore throat Cardiovascular Cardiovascular: Reports chest pain and other Details: Reports chest pain from coughing Respiratory/Chest Respiratory/Chest: Reports cough, dyspnea, dyspnea on exertion and sputum Gastrointestinal Gastrointestinal: Reports constipation; Denies abdominal pain, nausea or vomiting Musculoskeletal Musculoskeletal: Denies arthralgias or myalgias Integumentary Denies rash Neurologic Neurologic: Reports paresthesias RLE (Chronic from prior nerve injury) and weakness Hematologic/Lymphatic Hematologic/Lymphatic: Denies easy bleeding or easy bruising EXAM Physical Exam Const Vital Signs: 07/17/24 17:49 07/17/24 17:50 07/17/24 17:52 Temperature 101.2 F H 101.2 F H Temperature Source Oral Temporal Pulse Rate 91 91 Respiratory Rate 25 H 25 H Respiratory Effort Short of Breath Respiratory Depth Shallow Respiratory Pattern Tachypnea Blood Pressure 164/66 H 164/66 H Blood Pressure Mean 98 98 Pulse Ox 87 87 Oxygen Delivery Method Nasal Cannula Room Air Room Air Oxygen Flow Rate (L/min) 3 07/17/24 18:05 07/17/24 18:05 07/17/24 18:45 Temperature Temperature Source Pulse Rate 88 Respiratory Rate 26 H 17 Respiratory Effort Respiratory Depth Respiratory Pattern Blood Pressure 124/69 H Blood Pressure Mean 84 Pulse Ox 95 94 Oxygen Delivery Method Nasal Cannula Nasal Cannula Oxygen Flow Rate (L/min) 4 07/17/24 19:14 07/17/24 19:14 07/17/24 19:15 Temperature Temperature Source Pulse Rate 89 85 Respiratory Rate 24 H 18 (more content not included)... Normal [facility] Ferritinon 07-17-2024 Ferritin [Mass/Vol] 588 ng/mL High 26-388 [facility] Comment on above: Order Comment: 'TROP ' Serial specimen #1, #2 or #3: 1 Performed By: #### L 501.4020, L100.0100, L500.2500 #### [facility] [address] [facility] [address] [place], [place], [address] [facility] H&P Exam - Hospitalist [facility] Medical Records Department [address] [place] [address] H P Exam - Hospitalist 07/17/242032 MR#: [id number] Acct: [id number] Name: LESLIVIC YESSI Wyatt Rep #: [id number] : 1965 58 From: Madhuri Gregg MD PCP: Dr. Myah Arteaga MD Status:ADM IN Location: ICU ICU10-1 HPI - General General Date of Admission: 07/17/24 Date of Service: 07/17/24 Chief Complaint: Dyspnea, cough, fatigue, malaise, lack of appetite HPI Narrative The patient is a 58 y/o M w/ PMHx: Suspected CKD stage II based on GFR trending, Morbid obesity, AMANDA on CPAP q HS, HTN, Anxiety and Depression who presents to the [facility] ED on 07/17/24 w/ history of onset fever, intermittently productive cough, myalgia, altered taste and smell, fatigue malaise as well as dyspnea worse with exertion ongoing for the last 3 days with history of nearly half a month of URI type symptoms initially with significant congestion, rhinorrhea and fever placed on doxycycline with a 5-day course with clinical improvement until his current presentation with onset of URI type symptoms again prompting return to urgent care with prescription filled for Levaquin however he is only taken 1 dose and given ongoing fatigue and malaise with worsened dyspnea and minimal appetite prompted ED evaluation. Patient did have a breathing treatment at urgent care and felt somewhat improved at that time. He does report being vaccinated against COVID but has not had any vaccine this season as of yet. His who is present has yet to feel ill but they have been around all the same individuals. Workup in the ED included T101.2 oral, heart rate 91, BP 164/66, respiratory rate 25, initially 87% on room air with improvement to 95% on 4 L nasal cannula, CBC with WBC 11.5, hemoglobin 16.3, platelet 208 with left shift, BMP with sodium 135, lactic acid 1.3, troponin 4, chest x-ray with bibasilar interstitial thickening concerning for viral pneumonia, rapid SARS COVID noted to be positive. In the ED patient ministered 1 L normal saline, Tylenol 650 mg p.o. x 1, DuoNeb therapy as well as Decadron 6 mg IV x 1. [facility] Medical History (Updated 07/17/24 @ 21:[address] Madhuri Gregg MD) Erectile dysfunction AMANDA on CPAP Morbid obesity Anxiety and depression Hypertension Home Medications ???Medication ???Instructions ???Recorded ???Last Taken ???Type tadalafil 20 mg tablet 20 mg PO ONCE PRN ed 03/20/18 Unknown History acetaminophen 500 mg tablet 500 mg PO Q6H PRN fever or pain 07/17/24 Unknown History losartan 25 mg tablet 50 mg PO DAILY 07/17/24 Unknown History Allergy/AdvReac Type Severity Reaction Status Date / Time Penicillins Allergy Rash Verified 07/17/24 17:50 Sulfa (Sulfonamide Allergy Rash Verified 07/17/24 17:50 Antibiotics) celecoxib (From Celebrex) AdvReac Rash Verified 07/17/24 17:50 Family History Father Cancer Mother CVA (cerebral vascular accident) Heart disease Surgical History History of cholecystectomy History of left hip replacement h/o wrist surgery Social History (Updated 07/17/24 @ 21:[address] Madhuri Gregg MD) household members: spouse Smoking Status: Never smoker alcohol intake: never substance use type: does not use ROS ROS Narrative Admission Review of Systems: CONSTITUTIONAL: No weight loss, + fever, chills, weakness or fatigue. HEENT: + Congestion, rhinorrhea, sore throat. Eyes: No visual loss, blurred vision, double vision or yellow sclerae. Ears, Nose, Throat: No hearing loss, sneezing. SKIN: No rash or itching, lesions, wounds. CARDIOVASCULAR: + Pleuritic chest discomfort. No palpitations, edema, orthopnea, syncopal events. RESPIRATORY: + shortness of breath, cough with occasional productive sputum. No wheezing, hemoptysis. GASTROINTESTINAL: + anorexia, constipation. No nausea, emesis, diarrhea, abdominal pain, melena, BRBPR. GENITOURINARY: No dysuria, frequency, urgency or retention. NEUROLOGICAL: No headache, dizziness, syncope, paralysis, ataxia, numbness or tingling in the extremities, focal weakness, change in bowel or bladder control, seizure. MUSCULOSKELETAL: + muscle, back pain, joint pain or stiffness. HEMATOLOGIC: No anemia, bleeding or bruising. LYMPHATICS: No enlarged nodes. No history of splenectomy. PSYCHIATRIC: No history of depression or anxiety. ENDOCRINOLOGIC: + reports of sweating, cold or heat intolerance. No polyuria or polydipsia. ALLERGIES: No history of asthma, hives, eczema or rhinitis. Vital Signs Vital Signs Vital Signs: 07/17/24 17:49 07/17/24 17:50 07/17/24 17:52 Temperature 101.2 F H 101.2 F H Temperature Source Oral Temporal Pulse Rate 91 91 Respiratory Rate 25 H 25 H Respiratory Effort Shor (more content not included)... Normal [facility] L501.4020on 07-17-2024 TROPONIN-I HS 4 pg/mL Normal 3.0-78.0 [facility] Comment on above: Order Comment: 'TROP ' Serial specimen #1, #2 or #3: 1 Result Comment: Eva santos Note: New Test Units and Gender Specific Reference Ranges. For more information see Policy Stat Procedure Luning High Sensitivity Troponin (TNIH) and attachments. Performed By: #### L 501.4020, L100.0100, L500.2500 #### [facility] [address] [place], [address] LDHon 07-17-2024 LDH 197 U/L Normal 87-241 [facility] Comment on above: Order Comment: 'TROP ' Serial specimen #1, #2 or #3: 1 Performed By: #### L 501.4020, L100.0100, L500.2500 #### [facility] [address] [place], [address] Lactic Acidon 07-17-2024 Lactate [Moles/Vol] 1.3 mmol/L Normal 0.4-1.9 [facility] Comment on above: Order Comment: Y Performed By: #### L 500.2500, L100.0100 #### [facility] [address] [place], [address] Liver Profileon 07-17-2024 Albumin [Mass/Vol] 3.9 g/dL Normal 3.2-5.0 [facility] Comment on above: Order Comment: Comme nts: add to ED labs Comments: May add to ED labs may add to ED labs Performed By: #### L 503.6620, L504.2610, L500.3400, L300.8000, L509.7000, L501.3620, L503.6550, L501.6710 #### [facility] [address] [place], [address] ALK P 64 U/L Normal 45-117 [facility] Comment on above: Order Comment: Comme nts: add to ED labs Comments: May add to ED labs may add to ED labs Performed By: #### L 503.6620, L504.2610, L500.3400, L300.8000, L509.7000, L501.3620, L503.6550, L501.6710 #### [facility] [address] [place], [address] ALT [Catalytic activity/Vol] 30 U/L Normal 16-61 [facility] Comment on above: Order Comment: Comme nts: add to ED labs Comments: May add to ED labs may add to ED labs Performed By: #### L 503.6620, L504.2610, L500.3400, L300.8000, L509.7000, L501.3620, L503.6550, L501.6710 #### [facility] [address] [place], [address] AST [Catalytic activity/Vol] 21 U/L Normal 15-37 [facility] Comment on above: Order Comment: Comme nts: add to ED labs Comments: May add to ED labs may add to ED labs Performed By: #### L 503.6620, L504.2610, L500.3400, L300.8000, L509.7000, L501.3620, L503.6550, L501.6710 #### [facility] [address] [place], [address] Bilirubin [Mass/Vol] 0.90 mg/dL Normal 0.20-1.00 [facility] Comment on above: Order Comment: Comme nts: add to ED labs Comments: May add to ED labs may add to ED labs Result Comment: For patients on eltrombopag therapy, use of Dimension [place] TBIL is not recommended. Performed By: #### L 503.6620, L504.2610, L500.3400, L300.8000, L509.7000, L501.3620, L503.6550, L501.6710 #### [facility] [address] [place], [address] Bilirubin.direct [Mass/Vol] 0.25 mg/dL Normal 0.00-0.30 [facility] Comment on above: Order Comment: Comme nts: add to ED labs Comments: May add to ED labs may add to ED labs Performed By: #### L 503.6620, L504.2610, L500.3400, L300.8000, L509.7000, L501.3620, L503.6550, L501.6710 #### [facility] [address] [facility] [place], [address] Globulin (S) [Mass/Vol] 4.3 g/dL High 2.2-4.2 [facility] Comment on above: Order Comment: Comme nts: add to ED labs Comments: May add to ED labs may add to ED labs Performed By: #### L 503.6620, L504.2610, L500.3400, L300.8000, L509.7000, L501.3620, L503.6550, L501.6710 #### [facility] [address] [facility] [place], [address] T PROT 8.2 g/dL Normal 6.4-8.2 [facility] Comment on above: Order Comment: Jamal nts: add to ED labs Comments: May add to ED labs may add to ED labs Performed By: #### L 503.6620, L504.2610, L500.3400, L300.8000, L509.7000, L501.3620, L503.6550, L501.6710 #### [facility] [address] [facility] [place], [address] M100.678on 07-17-2024 SARS-CoV-2 (COVID-19) RNA MARIZOL+probe Ql (Unsp spec) Pending SARS-CoV-2 (COVID 19) A Positive A INFLUENZA A Negative INFLUENZA B Negative RSV PCR Negative SARS-CoV-2 (COVID 19 PCR) * This is an amended result. * A prior result that was reported as final has been changed. 07/18/24 07 by XIMENA Hull [facility] Comment on above: Performed By: #### L 501.4020, L100.0100, L500.2500 #### [facility] [address] [place], [address] Procalcitoninon 07-17-2024 Procalcitonin 0.10 ng/mL High 0.00-0.09 [facility] Comment on above: Result Comment: A procalcitonin (PCT) level above 2.0 ng/mL on the first day of ICU admission is associated with a high risk for progression to severe sepsis and/or septic shock. A PCT level below 0.5 ng/mL on the first day of ICU admission is associated with a low risk for progression to severe and/or septic shock. Note: Concentrations <0.5 ng/mL do not exclude an infection on account of localized infections (without systemic signs) which can be associated with such low concentrations, or a systemic infection in its initial stages (<6 hours). Furthermore, increased procalcitonin can occur without infection. PCT concentrations between 0.5 and 2.0 ng/mL should be interpreted taking into account the patient's history. It is recommended to retest PCT within 6-24 hours if any concentrations <2 ng/mL are obtained. Performed By: #### L 501.4020, L100.0100, L500.2500 #### [facility] [address] [place], [address] XR Chest PA and Lateralon IMPRESSION: No acute radiographic abnormality. Milk Hauler: DANIEL Transcribe Date/Time: Jul 17 2024 4:15P Dictated by : MERY ANTOINE MD This examination was interpreted and the report reviewed and electronically signed by: MERY ANTOINE MD on Jul 17 2024 4:16PM [facility] DIVISION OF RADIOLOGY * * *Final Report* * * DATE OF EXAM: Jul 17 2024 2:34PM WOX 5291 - XR CHEST 2V FRONTAL/LAT / PROCEDURE REASON: Acute cough * * * * Physician Interpretation * * * * EXAMINATION: CHEST RADIOGRAPH (2 VIEW FRONTAL & LATERAL) CLINICAL HISTORY: Acute cough MQ: XC2_6 EXAM DATE/TIME: 07/17/2024 2:34 PM COMPARISON: 07/08/2024 RESULT: Lines, tubes, and devices: None. Lungs and pleura: No consolidation. No lung mass. No pleural effusion. No pneumothorax. Cardiomediastinal silhouette: Normal cardiomediastinal silhouette. Bones and soft tissues: Unremarkable. DIVISION OF RADIOLOGY Provider, [facility] - 07/17/2024 * * *Final Report* * * DATE OF EXAM: Jul 17 2024 2:34PM WOX 5291 - XR CHEST 2V FRONTAL/LAT / PROCEDURE REASON: Acute cough * * * * Physician Interpretation * * * * EXAMINATION: CHEST RADIOGRAPH (2 VIEW FRONTAL & LATERAL) CLINICAL HISTORY: Acute cough MQ: XC2_6 EXAM DATE/TIME: 07/17/2024 2:34 PM COMPARISON: 07/08/2024 RESULT: Lines, tubes, and devices: None. Lungs and pleura: No consolidation. No lung mass. No pleural effusion. No pneumothorax. Cardiomediastinal silhouette: Normal cardiomediastinal silhouette. Bones and soft tissues: Unremarkable. IMPRESSION IMPRESSION: No acute radiographic abnormality. Milk Hauler: DANIEL Transcribe Date/Time: Jul 17 2024 4:15P Dictated by : MERY ANTOINE MD This examination was interpreted and the report reviewed and electronically signed by: MERY ANTOINE MD on Jul 17 2024 4:16PM [facility] Radiology Study observation (narrative) [facility] XR Chest PA and LateralOrder ed By: [facility] Provider on 07-17-2024 [facility] XR Chest PA and Lateralon IMPRESSION: No acute radiographic abnormality. Milk Hauler: PSCB Transcribe Date/Time: Jul 08 2024 1:34P Dictated by : ANDREI CASTLE MD This examination was interpreted and the report reviewed and electronically signed by: ANDREI CASTLE MD on Jul 08 2024 1:34PM [facility] DIVISION OF RADIOLOGY * * *Final Report* * * DATE OF EXAM: Jul 08 2024 1:07PM WRX 5291 - XR CHEST 2V FRONTAL/LAT / PROCEDURE REASON: Cough, unspecified type * * * * Physician Interpretation * * * * EXAMINATION: CHEST RADIOGRAPH (2 VIEW FRONTAL & LATERAL) CLINICAL HISTORY: Cough, unspecified type MQ: XC2_6 EXAM DATE/TIME: 07/08/2024 1:07 PM COMPARISON: Chest x-ray on 10/25/2021 RESULT: Lines, tubes, and devices: None. Lungs and pleura: No consolidation. No lung mass. No pleural effusion. No pneumothorax. Cardiomediastinal silhouette: Stable cardiomediastinal silhouette. Bones and soft tissues: Unremarkable. DIVISION OF RADIOLOGY Provider, [facility] [place] - 07/08/2024 * * *Final Report* * * DATE OF EXAM: Jul 08 2024 1:07PM WRX 5291 - XR CHEST 2V FRONTAL/LAT / PROCEDURE REASON: Cough, unspecified type * * * * Physician Interpretation * * * * EXAMINATION: CHEST RADIOGRAPH (2 VIEW FRONTAL & LATERAL) CLINICAL HISTORY: Cough, unspecified type MQ: XC2_6 EXAM DATE/TIME: 07/08/2024 1:07 PM COMPARISON: Chest x-ray on 10/25/2021 RESULT: Lines, tubes, and devices: None. Lungs and pleura: No consolidation. No lung mass. No pleural effusion. No pneumothorax. Cardiomediastinal silhouette: Stable cardiomediastinal silhouette. Bones and soft tissues: Unremarkable. IMPRESSION IMPRESSION: No acute radiographic abnormality. Milk Hauler: PSCB Transcribe Date/Time: Jul 08 2024 1:34P Dictated by : ANDREI CASTLE MD This examination was interpreted and the report reviewed and electronically signed by: ANDREI CASTLE MD on Jul 08 2024 1:34PM EST [facility] Radiology Study observation (narrative) [facility] XR Chest PA and LateralOrder ed By: [facility] Provider on 07-08-2024 [facility] ALLIED HEALTHon 03-08-2024 ALLIED HEALTH HNO ID: [id number] Author: ?, ?, ? Service: ? Author Type: ? Type: [facility] Health Filed: 03/08/2024 08:18 Note Text: Radiology Service Progress Note DATE OF SERVICE: March 08, 2024 TIME: 8:05 AM PATIENT IDENTITY VERIFICATION COMPLETED USING TWO (2) STANDARD IDENTIFIERS: Name and Date of confirmed by patient verbally. FALL SCREENING: Has the patient had 2 falls in the last year or 1 fall with injury or currently using an Ambulatory Assistive Device (Walker, Cane, Wheelchair, Crutches, etc.)? No PATIENT GENDER DATA: Male PATIENT RELEVANT IMPLANT DATA REVIEWED: Yes PATIENT PRESENTS WITH AN IMPLANTABLE OR ATTACHED LANDSCAPING SUPERVISOR: No ALLERGIES: Reviewed and unchanged CONTRAST ALLERGY: NO. EXAM: MRI - CONTRAST TYPE: GROUP I OR GROUP III RISK FACTORS: N/A CREATININE: Creatinine Date Value Ref Range Status 02/13/2024 0.83 0.73 - 1.22 mg/dL Final 02/09/2024 0.74 0.73 - 1.22 mg/dL Final 06/12/2023 0.79 0.73 - 1.22 mg/dL Final Estimated Glomerular Filtration Rate Date Value Ref Range Status 02/13/2024 101 >=60 mL/min/1.73m? Final Comment: Estimated Glomerular Filtration Rate (eGFR) is calculated using the 2020 CKD-EPI creatinine equation. This equation utilizes serum creatinine, sex, and age as parameters. The creatinine assay has traceable calibration to isotope dilution-mass spectrometry. Refer to KDIGO guidelines for clinical interpretation. In patients with unstable renal function, e.g. those with acute kidney injury, the eGFR may not accurately reflect actual GFR. eGFR- Date Value Ref Range Status 12/05/2021 >60 Final P.O.C.T. RESULTS: N/A March 08, 2024 TREATMENT: N/A PERIPHERAL IV DATA: Ambulatory: A peripheral IV was started in the Right with a Angio cath: 22 gauge. RADIOLOGY DEPARTMENT: MR; Exam(s) Completed: Body: Renal SIGNATURE: [facility] PATIENT NAME: Vic Ballesteros DATE: March 08, 2024 TIME: 8:05 AM Normal [facility] MRI KIDNEY WO/W IVCONon 05-1 MRI KIDNEY WO/W IVCON * * *Final Report* * * DATE OF EXAM: Mar 08 2024 9:02AM [facility] 0721 - MRI KIDNEY WO/W IVCON / PROCEDURE REASON: Other specified disorders of kidney and ureter * * * * Physician Interpretation * * * * MRI KIDNEY WO/W IVCON CLINICAL HISTORY: Prior renal ultrasound demonstrated either prominent cortical lobulation or mass along the upper pole of the left kidney. COMPARISON: Renal ultrasound from 02/22/[address] the abdomen and pelvis with contrast from 07/30/2019 TECHNIQUE: MRI KIDNEY WO/W IVCON was performed. 20 mL of Dotarem was administered. Findings: Kidneys: Normal. Liver: Mild hepatic steatosis. Gallbladder: Cholecystectomy. Pancreas: Normal. Spleen: Normal. Adrenal Glands: Normal. Lymph Nodes: No suspicious intra-abdominal lymphadenopathy. IMPRESSION: 1. Normal appearance of the kidneys on MRI with no evidence of renal mass. The finding on the prior renal ultrasound likely represented prominent lobulation of normal renal parenchyma. 2. Mild hepatic steatosis. Milk Hauler: PSCB Transcribe Date/Time: Mar 11 2024 2:41P Dictated by : RIVERA DOWNEY MD This examination was interpreted and the report reviewed and electronically signed by: RIVERA DOWNEY MD on Mar 11 2024 2:55PM EST [id number] Normal [facility] MR Lumbar spine WO and W con trast Christina 02-21-2024 * * *Final Report* * * DATE OF EXAM: Feb 21 2024 1:53PM [facility] 0304 - MRI LUMBAR SPINE WO/W IVCON / PROCEDURE REASON: Soft tissue mass * * * * Physician Interpretation * * * * EXAMINATION: MRI THORACIC SPINE WO/W IVCON, MRI LUMBAR SPINE WO/W IVCON CLINICAL HISTORY: Soft tissue mass Upper back pain MRI THORACIC SPINE WITHOUT CONTRAST HISTORY: Soft tissue mass Upper back pain history of fall in 1988, with new pain between the shoulder blades in the last 6 months, scapular pain. 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 This was not followed, and given the new pain the patient presents for evaluation. TECHNIQUE: Multi-sequence, multiplanar MRI of the lumbar and thoracic spine was performed with and without IV contrast. MR Contrast: Dotarem MR Contrast Volume (ml): 20 MR Contrast Route of Administration: IV COMPARISON: MRI lumbar spine dated 03/21/2013. MRI OF THORACIC SPINE: Alignment: Unremarkable. The thoracic kyphosis is maintained. No spondylolisthesis. Localizer images: No additional findings. Vertebral body heights: Maintained. Disc body heights: Mild multilevel intervertebral disc space desiccation predominantly from T2-T3 through T7-T8. Bone marrow signal: Subcentimeter T9 and T12 intraosseous hemangioma.. Thoracic spinal cord: The thoracic spinal cord is normal in caliber and signal. Please see description of the mass at T12-L1 level in the lumbar spine MRI. Paraspinal soft tissues: The paraspinal soft tissues are within normal limits. Evaluation of the individual thoracic levels demonstrates no significant canal or neural foraminal stenosis. Localizer images: No additional findings. MRI LUMBAR SPINE RESULT: Counting reference: Lumbosacral junction. For the purposes of this report, L4-5 is considered the level of the iliac crest and assume there are 5 lumbar-type vertebrae. Anatomic variant: None. Localizer images: No additional findings. Alignment: Alignment is anatomic. Bone marrow signal/fracture: No evidence of pathologic marrow infiltration. No evidence of prior fracture. Conus: There is isointense to the cord intradural mass along the anterior margin of the conus medullaris at T12-L1 level demonstrating mild enhancement (series 11 image 15 and series 12 image 5). Mass measures approximately 7 x 4 mm in greatest transverse dimensions and approximately 2.4 cm in craniocaudal dimension. There is no intramedullary signal abnormality at this level. No syrinx. Cauda equina is normal in appearance. T12-L1 mass along the inferior surface of the cord appears to be unchanged in size since MRI 09/04/2009. Given stability and likely extramedullary location of the mass, primary differential consideration is neurogenic tumor. Unlikely to represent meningioma or even lack of dural attachment. Given stability and absence of intramedullary signal abnormality, likely to represent ependymoma or more aggressive etiologies. Paraspinal soft tissues: Paraspinal soft tissues are within normal limits. Lower thoracic spine: Visualized lower thoracic canal and foramina are patent. L1-L2: Canal and foramina are patent. L2-L3: Disc bulge with mild bilateral foraminal stenosis. No significant canal narrowing. L3-L4: Disc bulge with mild bilateral foraminal stenosis. No skull canal narrowing. L4-L5: Disc bulge with superimposed right paracentral extrusion resulting mild spinal canal stenosis with effacement of the right subarticular recess affecting the descending right L5 nerve roots. Mild bilateral foraminal stenosis. L5-S1: Disc bulge with mild left foraminal stenosis. Small canal and right neuroforamen are patent. Nerve sheath is not clearly visualized within the right neural foramen, unchanged. Sacrum and iliac wings: The visualized sacrum and iliac wings are within normal limits. DIVISION OF RADIOLOGY Provider, [facility] - 02/21/2024 * * *Final Report* * * DATE OF EXAM: Feb 21 2024 1:53PM [facility] 0304 - MRI LUMBAR SPINE WO/W IVCON / PROCEDURE REASON: Soft tissue mass * * * * Physician Interpretation * * * * EXAMINATION: MRI THORACIC SPINE WO/W IVCON, MRI LUMBAR SPINE WO/W IVCON CLINICAL HISTORY: Soft tissue mass Upper back pain MRI THORACIC SPINE WITHOUT CONTRAST HISTORY: Soft tissue mass Upper back pain history of fall in 1988, with new pain between the shoulder blades in the last 6 months, scapular pain. 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 This was not followed, and given the new pain the patient presents for evaluation. TECHNIQUE: Multi-sequence, multiplanar MRI of the lumbar and thoracic spine was performed with and without IV contrast. MR Contrast: Dotarem MR Contrast Volume (ml): 20 MR Contrast Route of Administration: IV COMPARISON: MRI lumbar spine dated 03/21/2013. MRI OF THORACIC SPINE: Alignment: Unremarkable. The thoracic kyphosis is maintained. No spondylolisthesis. Localizer images: No additional findings. Vertebral body heights: Maintained. Disc body heights: Mild multilevel intervertebral disc space desiccation predominantly from T2-T3 through T7-T8. Bone marrow signal: Subcentimeter T9 and T12 intraosseous hemangioma.. Thoracic spinal cord: The thoracic spinal cord is normal in caliber and signal. Please see description of the mass at T12-L1 level in the lumbar spine MRI. Paraspinal soft tissues: The paraspinal soft tissues are within normal limits. Evaluation of the individual thoracic levels demonstrates no significant canal or neural foraminal stenosis. Localizer images: No additional findings. MRI LUMBAR SPINE RESULT: Counting reference: Lumbosacral junction. For the purposes of this report, L4-5 is considered the level of the iliac crest and assume there are 5 lumbar-type vertebrae. Anatomic variant: None. Localizer images: No additional findings. Alignment: Alignment is anatomic. Bone marrow signal/fracture: No evidence of pathologic marrow infiltration. No evidence of prior fracture. Conus: There is isointense to the cord intradural mass along the anterior margin of the conus medullaris at T12-L1 level demonstrating mild enhancement (series 11 image 15 and series 12 image 5). Mass measures approximately 7 x 4 mm in greatest transverse dimensions and approximately 2.4 cm in craniocaudal dimension. There is no intramedullary signal abnormality at this level. No syrinx. Cauda equina is normal in appearance. T12-L1 mass along the inferior surface of the cord appears to be unchanged in size since MRI 09/04/2009. Given stability and likely extramedullary location of the mass, primary differential consideration is neurogenic tumor. Unlikely to represent meningioma or even lack of dural attachment. Given stability and absence of intramedullary signal abnormality, likely to represent ependymoma or more aggressive etiologies. Paraspinal soft tissues: Paraspinal soft tissues are within normal limits. Lower thoracic spine: Visualized lower thoracic canal and foramina are patent. L1-L2: Canal and foramina are patent. L2-L3: Disc bulge with mild bilateral foraminal stenosis. No significant canal narrowing. L3-L4: Disc bulge with mild bilateral foraminal stenosis. No skull canal narrowing. L4-L5: Disc bulge with superimposed right paracentral extrusion resulting mild spinal canal stenosis with effacement of the right subarticular recess affecting the descending right L5 nerve roots. Mild bilateral foraminal stenosis. L5-S1: Disc bulge with mild left foraminal stenosis. Small canal and right neuroforamen are patent. Nerve sheath is not clearly visualized within the right neural foramen, unchanged. Sacrum and iliac wings: The visualized sacrum and iliac wings are within normal limits. IMPRESSION IMPRESSION: No significant change of an intradural, likely extramedullary mass along the anterior surface of the conus medullaris at T12-L1 level with mild enhancement. No adjacent intramedullary signal abnormality. 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 No other mass or pathologic intradural enhancement. Mild degenerative changes of the lumbar spine. Normal morphology and signal intensity of the remaining visualized thoracic cord. Milk Hauler: DANIEL Transcribe Date/Time: Feb 21 2024 2:40P Dictated by : BERLIN GOMEZ MD This examination was interpreted and the report reviewed and electronically signed by: ANSHU SOTO MD on Feb 21 2024 4:24PM [facility] MR Thoracic spine WO and W c ontrast Christina 02-21-2024 * * *Final Report* * * DATE OF EXAM: Feb 21 2024 1:53PM [facility] 0326 - MRI THORACIC SPINE WO/W IVCON / PROCEDURE REASON: multiple diagnoses * * * * Physician Interpretation * * * * EXAMINATION: MRI THORACIC SPINE WO/W IVCON, MRI LUMBAR SPINE WO/W IVCON CLINICAL HISTORY: Soft tissue mass Upper back pain MRI THORACIC SPINE WITHOUT CONTRAST HISTORY: Soft tissue mass Upper back pain history of fall in 1988, with new pain between the shoulder blades in the last 6 months, scapular pain. 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 This was not followed, and given the new pain the patient presents for evaluation. TECHNIQUE: Multi-sequence, multiplanar MRI of the lumbar and thoracic spine was performed with and without IV contrast. MR Contrast: Dotarem MR Contrast Volume (ml): 20 MR Contrast Route of Administration: IV COMPARISON: MRI lumbar spine dated 03/21/2013. MRI OF THORACIC SPINE: Alignment: Unremarkable. The thoracic kyphosis is maintained. No spondylolisthesis. Localizer images: No additional findings. Vertebral body heights: Maintained. Disc body heights: Mild multilevel intervertebral disc space desiccation predominantly from T2-T3 through T7-T8. Bone marrow signal: Subcentimeter T9 and T12 intraosseous hemangioma.. Thoracic spinal cord: The thoracic spinal cord is normal in caliber and signal. Please see description of the mass at T12-L1 level in the lumbar spine MRI. Paraspinal soft tissues: The paraspinal soft tissues are within normal limits. Evaluation of the individual thoracic levels demonstrates no significant canal or neural foraminal stenosis. Localizer images: No additional findings. MRI LUMBAR SPINE RESULT: Counting reference: Lumbosacral junction. For the purposes of this report, L4-5 is considered the level of the iliac crest and assume there are 5 lumbar-type vertebrae. Anatomic variant: None. Localizer images: No additional findings. Alignment: Alignment is anatomic. Bone marrow signal/fracture: No evidence of pathologic marrow infiltration. No evidence of prior fracture. Conus: There is isointense to the cord intradural mass along the anterior margin of the conus medullaris at T12-L1 level demonstrating mild enhancement (series 11 image 15 and series 12 image 5). Mass measures approximately 7 x 4 mm in greatest transverse dimensions and approximately 2.4 cm in craniocaudal dimension. There is no intramedullary signal abnormality at this level. No syrinx. Cauda equina is normal in appearance. T12-L1 mass along the inferior surface of the cord appears to be unchanged in size since MRI 09/04/2009. Given stability and likely extramedullary location of the mass, primary differential consideration is neurogenic tumor. Unlikely to represent meningioma or even lack of dural attachment. Given stability and absence of intramedullary signal abnormality, likely to represent ependymoma or more aggressive etiologies. Paraspinal soft tissues: Paraspinal soft tissues are within normal limits. Lower thoracic spine: Visualized lower thoracic canal and foramina are patent. L1-L2: Canal and foramina are patent. L2-L3: Disc bulge with mild bilateral foraminal stenosis. No significant canal narrowing. L3-L4: Disc bulge with mild bilateral foraminal stenosis. No skull canal narrowing. L4-L5: Disc bulge with superimposed right paracentral extrusion resulting mild spinal canal stenosis with effacement of the right subarticular recess affecting the descending right L5 nerve roots. Mild bilateral foraminal stenosis. L5-S1: Disc bulge with mild left foraminal stenosis. Small canal and right neuroforamen are patent. Nerve sheath is not clearly visualized within the right neural foramen, unchanged. Sacrum and iliac wings: The visualized sacrum and iliac wings are within normal limits. DIVISION OF RADIOLOGY Provider, [facility] - 02/21/2024 * * *Final Report* * * DATE OF EXAM: Feb 21 2024 1:53PM [facility] [id number] - MRI THORACIC SPINE WO/W IVCON / PROCEDURE REASON: multiple diagnoses * * * * Physician Interpretation * * * * EXAMINATION: MRI THORACIC SPINE WO/W IVCON, MRI LUMBAR SPINE WO/W IVCON CLINICAL HISTORY: Soft tissue mass Upper back pain MRI THORACIC SPINE WITHOUT CONTRAST HISTORY: Soft tissue mass Upper back pain history of fall in 1988, with new pain between the shoulder blades in the last 6 months, scapular pain. 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 This was not followed, and given the new pain the patient presents for evaluation. TECHNIQUE: Multi-sequence, multiplanar MRI of the lumbar and thoracic spine was performed with and without IV contrast. MR Contrast: Dotarem MR Contrast Volume (ml): 20 MR Contrast Route of Administration: IV COMPARISON: MRI lumbar spine dated 03/21/2013. MRI OF THORACIC SPINE: Alignment: Unremarkable. The thoracic kyphosis is maintained. No spondylolisthesis. Localizer images: No additional findings. Vertebral body heights: Maintained. Disc body heights: Mild multilevel intervertebral disc space desiccation predominantly from T2-T3 through T7-T8. Bone marrow signal: Subcentimeter T9 and T12 intraosseous hemangioma.. Thoracic spinal cord: The thoracic spinal cord is normal in caliber and signal. Please see description of the mass at T12-L1 level in the lumbar spine MRI. Paraspinal soft tissues: The paraspinal soft tissues are within normal limits. Evaluation of the individual thoracic levels demonstrates no significant canal or neural foraminal stenosis. Localizer images: No additional findings. MRI LUMBAR SPINE RESULT: Counting reference: Lumbosacral junction. For the purposes of this report, L4-5 is considered the level of the iliac crest and assume there are 5 lumbar-type vertebrae. Anatomic variant: None. Localizer images: No additional findings. Alignment: Alignment is anatomic. Bone marrow signal/fracture: No evidence of pathologic marrow infiltration. No evidence of prior fracture. Conus: There is isointense to the cord intradural mass along the anterior margin of the conus medullaris at T12-L1 level demonstrating mild enhancement (series 11 image 15 and series 12 image 5). Mass measures approximately 7 x 4 mm in greatest transverse dimensions and approximately 2.4 cm in craniocaudal dimension. There is no intramedullary signal abnormality at this level. No syrinx. Cauda equina is normal in appearance. T12-L1 mass along the inferior surface of the cord appears to be unchanged in size since MRI 09/04/2009. Given stability and likely extramedullary location of the mass, primary differential consideration is neurogenic tumor. Unlikely to represent meningioma or even lack of dural attachment. Given stability and absence of intramedullary signal abnormality, likely to represent ependymoma or more aggressive etiologies. Paraspinal soft tissues: Paraspinal soft tissues are within normal limits. Lower thoracic spine: Visualized lower thoracic canal and foramina are patent. L1-L2: Canal and foramina are patent. L2-L3: Disc bulge with mild bilateral foraminal stenosis. No significant canal narrowing. L3-L4: Disc bulge with mild bilateral foraminal stenosis. No skull canal narrowing. L4-L5: Disc bulge with superimposed right paracentral extrusion resulting mild spinal canal stenosis with effacement of the right subarticular recess affecting the descending right L5 nerve roots. Mild bilateral foraminal stenosis. L5-S1: Disc bulge with mild left foraminal stenosis. Small canal and right neuroforamen are patent. Nerve sheath is not clearly visualized within the right neural foramen, unchanged. Sacrum and iliac wings: The visualized sacrum and iliac wings are within normal limits. IMPRESSION IMPRESSION: No significant change of an intradural, likely extramedullary mass along the anterior surface of the conus medullaris at T12-L1 level with mild enhancement. No adjacent intramedullary signal abnormality. 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 No other mass or pathologic intradural enhancement. Mild degenerative changes of the lumbar spine. Normal morphology and signal intensity of the remaining visualized thoracic cord. Milk Hauler: [facility] Transcribe Date/Time: Feb 21 2024 2:40P Dictated by : BERLIN GOMEZ MD This examination was interpreted and the report reviewed and electronically signed by: ANSHU SOTO MD on Feb 21 2024 4:24PM [facility] No Panel Informationon 02-20 IMPRESSION: No significant change of an intradural, likely extramedullary mass along the anterior surface of the conus medullaris at T12-L1 level with mild enhancement. No adjacent intramedullary signal abnormality. 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 No other mass or pathologic intradural enhancement. Mild degenerative changes of the lumbar spine. Normal morphology and signal intensity of the remaining visualized thoracic cord. Milk Hauler: [facility] Transcribe Date/Time: Feb 21 2024 2:40P Dictated by : BERLIN GOMEZ MD This examination was interpreted and the report reviewed and electronically signed by: ANSHU SOTO MD on Feb 21 2024 4:24PM [facility] DIVISION OF RADIOLOGY Radiology Study observation (narrative) [facility] No Panel InformationOrdered By: [facility] Provider on 02-21-2024 [facility] PROTEIN, 24 HOUR URINEon Protein (24H U) [Mass/Time] 0.42 High [facility] Comment on above: Adult Proteinuria Ca tegories: <0.15 g/24 hours is considered normal to mildly increased 0.15 - 0.50 g/24 hours is considered moderately increased >0.50 g/24 hours is considered severely increased KDIGO. (2013). KDIGO 2012 Clinical Practice Guideline for the Evaluation and Management of Chronic Kidney Disease. Official Journal of the International Society of Nephrology, 3(1), 1-150. Protein (24H U) [Mass/Time]o n 02-16-2024 Interpretation and review of laboratory results Abnormal [facility] Period 24 hr [facility] Specimen volume (24H U) 1.9 L [facility] CBC W Auto Differential pane l (Bld)on 02-13-2024 Basophils (Bld) [#/Vol] 0.05 10*3/uL <0.11 k/uL [facility] Basophils/100 WBC (Bld) 0.8 % [facility] Differential cell count method Nom (Bld) Auto [facility] Eosinophils (Bld) [#/Vol] 0.19 10*3/uL <0.46 k/uL [facility] Eosinophils/100 WBC (Bld) 3.0 % [facility] Erythrocyte distribution width (RBC) [Ratio] 14.3 % 11.5 - 15.0 % [facility] Hematocrit (Bld) [Volume fraction] 45.4 % 39.0 - 51.0 % [facility] Hemoglobin (Bld) [Mass/Vol] 15.4 g/dL 13.0 - 17.0 g/dL [facility] Immature granulocytes (Bld) [#/Vol] <0.10 k/uL [facility] Immature granulocytes/100 WBC (Bld) 0.2 % [facility] Lymphocytes (Bld) [#/Vol] 2.26 10*3/uL 1.00 - 4.00 k/uL [facility] Lymphocytes/100 WBC (Bld) 35.1 % [facility] MCH (RBC) [Entitic mass] 32.6 pg 26.0 - 34.0 pg [facility] MCHC (RBC) [Mass/Vol] 33.9 g/dL 30.5 - 36.0 g/dL [facility] MCV (RBC) [Entitic vol] 96.0 fL 80.0 - 100.0 fL [facility] Monocytes (Bld) [#/Vol] 0.46 10*3/uL <0.87 k/uL [facility] Monocytes/100 WBC (Bld) 7.1 % [facility] Neutrophils (Bld) [#/Vol] 3.47 10*3/uL 1.45 - 7.50 k/uL [facility] Neutrophils/100 WBC (Bld) 53.8 % [facility] Nucleated RBC (Bld) [#/Vol] <0.01 k/uL [facility] Nucleated RBC/100 WBC (Bld) [Ratio] 0.0 /100 WBC [facility] Platelet mean volume (Bld) [Entitic vol] 11.1 fL 9.0 - 12.7 fL [facility] Platelets (Bld) [#/Vol] 174 10*3/uL 150 - 400 k/uL [facility] RBC (Bld) [#/Vol] 4.73 10*6/uL 4.20 - 6.0 0 m/uL [facility] WBC (Bld) [#/Vol] 6.44 10*3/uL 3.70 - 11.00 k/uL [facility] Comprehensive metabolic 2000 panelon 02-13-2024 Albumin [Mass/Vol] 4.4 g/dL 3.9 - 4.9 g/dL [facility] ALP [Catalytic activity/Vol] 65 U/L 38 - 113 U/L [facility] ALT [Catalytic activity/Vol] 26 U/L 10 - 54 U/L [facility] Anion gap [Moles/Vol] 11 mmol/L 9 - 18 mmol/L [facility] AST [Catalytic activity/Vol] 24 U/L 14 - 40 U/L [facility] Bilirubin [Mass/Vol] 0.4 mg/dL 0.2 - 1 .3 mg/dL [facility] Calcium [Mass/Vol] 9.5 mg/dL 8.5 - 10. 2 mg/dL [facility] Chloride [Moles/Vol] 104 mmol/L 97 - 10 5 mmol/L [facility] CO2 [Moles/Vol] 27 mmol/L 22 - 30 mmol/L [facility] Creatinine [Mass/Vol] 0.83 mg/dL 0.73 - 1.22 mg/dL [facility] Estimated Glomerular Filtration Rate 101 mL/min/1.73m >=60 mL/min/1.73 m [facility] Glucose [Mass/Vol] 84 mg/dL 74 - 99 mg/dL [facility] Potassium [Moles/Vol] 4.9 mmol/L 3.7 - 5.1 mmol/L [facility] Protein [Mass/Vol] 7.2 g/dL 6.3 - 8.0 g/dL [facility] Sodium [Moles/Vol] 142 mmol/L 136 - 144 mmol/L [facility] Urea nitrogen [Mass/Vol] 12 mg/dL 9 - 24 mg/dL [facility] ESR Westergren method (Bld) [Velocity]on 02-13-2024 ESR (Bld) [Velocity] 10 mm/h 0 - 15 mm/hr [facility] TESTOSTERONE, TOTALon 2023 Testosterone [Mass/Vol] 253 ng/dL 193 - 824 ng/dL [facility] Comment on above: A testosterone level in the 193-320 ng/dL range with associated clinical symptoms is considered low and may indicate hypogonadism (from MAJ 2010 363:123-135). Results >320 ng/dL are considered normal. Testosterone [Mass/Vol]on Interpretation and review of laboratory results Normal [facility] NURSING PROGon 01-19-2023 NURSING PROG HNO ID: [id number] Author: Diane Maki RN Service: Gastroenterology Author Type: Registered Nurse Type: Nursing Progress Note Filed: 01/19/2023 9:07 AM Note Text: [facility] POST PROCEDURE FOLLOW UP CALL [phone] (home) Date Phone Call Made: 01/19/2023 Attempt: Attempt #1 Spoke to: Patient SYMPTOM DESCRIPTION Pain or Discomfort rated as: None IV No complaints Diet Back to Previous yes Nausea/Vomiting: None Bleeding: None Bowel Habits: Normal Other Issues: No Complaints Offered Was the nursing staff attentive to your needs? Yes Is there something our department could have done to make your experience more pleasant? No Diane Maki RN [facility] EGD DIAGNOSTICon 01-18-2023 [facility] HISTORY PHYSICALon HISTORY PHYSICAL HNO ID: [id number] Author: Lynn Taylor PA-C Service: Gastroenterology Author Type: Physician Jar Filler Type: HANDP Filed: 01/18/2023 11:45 AM Note Text: UPDATED HISTORY AND PHYSICAL EXAMINATION SERVICE DATE: 01/18/2023 SERVICE TIME: 11:28 AM SERVICE: Gastroenterology PHYSICAL EXAM MUST BE COMPLETED ON ADMISSION The History and Physical (completed in the past 30 days) has been reviewed and the patient has been examined. The contents accurately reflect the patient's condition with the following additions or revisions since the HANDP was completed. Denies chest pain, heart palpations, dizziness, fatigue, shortness of breath, cough, wheezing, headache, fever, abdominal pain, nausea, vomiting. Adequate time was taken to answer patient's questions. They have no further complaints at this time. Planned procedure(s) for today is/are: EGD DIAGNOSTIC PAST MEDICAL HISTORY Diagnosis Date ACNE NEC 10/13/2006 Anxiety 01/16/2023 ANXIETY STATE NOS 12/26/2008 Depression Dyslipidemia Essential hypertension 01/16/2023 GERD (gastroesophageal reflux disease) 01/16/2023 History of traumatic brain injury Hypertension Hypogonadism male 10/30/1988 Left knee pain Obesity AMANDA (obstructive sleep apnea) 10/30/2005 cpap PMH - PAST MEDICAL HISTORY OF L 5 nerve injury workman comp PMH - PAST MEDICAL HISTORY OF 10/30/1988 Industrial accident fall Stroke (HCC) Thrombosed external hemorrhoid 10/26/2011 Unspecified site of spinal cord injury without evidence of spinal bone injury 01/25/2013 Medication reconciliation list reviewed in [facility]. Past medical history, past surgical history, social history and family history reviewed and updated in [facility]. ALLERGIES Allergen Reactions Penicillin G Hives Sulfa (Sulfonamide * Hives Celebrex [Celecoxib] Rash See epic for vitals There were no vitals taken for this visit. There were no vitals taken for this visit. Examination indicates no changes. On examination today: Lungs: Clear to auscultation bilaterally. Heart: RRR, Normal S1/S2, No murmurs, rubs, gallops or thrills appreciated. Abdomen: BS+ in all quadrants, abdomen is soft, non tender, and without guarding. Assessment: pharyngeal dysphagia Plan: EGD DIAGNOSTIC This HANDP can be found in the Electronic Medical Record dated: 01/16/2023 done by Karl Harmon APRN.LEATHER SORTER SIGNATURE: Lynn Taylor PA-C PATIENT NAME: Vic Ballesteros DATE: January 18, 2023 TIME: 11:[address] [facility] SURGICAL PATHOLOGYon [address] [facility] Comment on above: Order Comment: Speci men Type: TISSUE SPECIMEN Ordering Facility: [facility] Address: [address] [place] [address] Result Comment: Surg ica Pathology Report Case: [id number] Authorizing Provider: Rik Vilchis MD Collected: 01/18/2023 12:31 PM Ordering Location: [facility] Received: 01/18/2023 02:42 PM [facility] Pathologist: Bebeto Warren MD Specimens: A) - STOMACH BIOPSY B) - ESOPHAGUS LOWER BIOPSY C) - ESOPHAGUS PROXIMAL BIOPSY Performed By: #### S #### [facility] CLIA [id number] [address] [place] [address] [place] [facility] CLIA [id number] [address] [place] [address] [place] CLINICAL HISTORY A) R/O HP [facility] Comment on above: Order Comment: Speci men Type: TISSUE SPECIMEN Ordering Facility: [facility] Address: [address] [place] [address] Result Comment: B-C) R/O EOE Performed By: #### S #### [facility] CLIA [id number] [address] [place] [address] [place] [facility] CLIA [id number] [address] [place] [address] [place] DIAGNOSIS COMMENT A. No microorganisms morphologically compatible with H. Pylori are identified on routine H AND E stained sections. [facility] Comment on above: Order Comment: Speci men Type: TISSUE SPECIMEN Ordering Facility: [facility] Address: [address] [place] [address] Performed By: #### S #### [facility] CLIA [id number] [place] [address] [place] [facility] CLIA [id number] [address] [place] [address] [place] FINAL DIAGNOSIS Normal [facility] Comment on above: Order Comment: Speci men Type: TISSUE SPECIMEN Ordering Facility: [facility] Address: [address] [place] [address] Result Comment: Song Combs tomach, biopsy: - Gastric oxyntic type mucosa with no pathologic diagnostic abnormality; see comment. B. Esophagus, lower, biopsy: - Squamous mucosa with no pathologic diagnostic abnormality; negative for intraepithelial eosinophils. C. Esophagus, proximal, biopsy: - Squamous mucosa with no pathologic diagnostic abnormality; negative for intraepithelial eosinophils. Performed By: #### S #### [facility] CLIA [id number] [place] [address] [place] [facility] CLIA [id number] [address] [place] [address] [place] [facility] Comment on above: Order Comment: Speci men Type: TISSUE SPECIMEN Ordering Facility: [facility] Address: [address] [place], [place] [id number] Result Comment: Diag nostic interpretation performed at [facility], [id number] [place] [address] CLIA# [id number] Casualty Underwriter: Bebeto Warren M.D. Performed By: #### S #### [facility] CLIA [id number] [place] [address] [place] [facility] CLIA [id number] [address] [place], [place] [id number] [place] GROSS DESCRIPTION Normal [facility] Comment on above: Order Comment: Speci men Type: TISSUE SPECIMEN Ordering Facility: [facility] Address: [address] [place] [id number] Result Comment: A. S TOMACH BIOPSY Received in formalin are two pieces of chopra, soft tissue aggregating to 0.4 x 0.3 x 0.2 cm. Totally submitted in one cassette. B. ESOPHAGUS LOWER BIOPSY Received in formalin are multiple pieces of chopra, soft tissue aggregating to 0.6 x 0.3 x 0.1 cm. Totally submitted in one cassette. C. ESOPHAGUS PROXIMAL BIOPSY Received in formalin are multiple pieces of chopra, soft tissue aggregating to 0.4 x 0.3 x 0.1 cm. Totally submitted in one cassette. JTS January 18, 2023 5:16 PM Gross examination performed at [facility], [address] [place] [address] Performed By: #### S #### [facility] CLIA [id number] [address] [place] [address] [place] [facility] CLIA [id number] [address] [place] [address] [place] Upper GI endoscopy 22-2 023 Upper GI endoscopy [facility] Gastrointestinal Endoscopy Patient Name: Vic Ballesteros Procedure Date: 01/18/2023 12:03 PM Date of : 1965 Admit Type: Outpatient Age: 57 Room: [place] [address] Gender: Male Note Status: Line Therapist Override Attending MD: Rik Vilchis MD Procedure: Upper GI endoscopy Indications: Dysphagia, Globus sensation Providers: Rik Vilchis MD Patient Profile: This is a 57 year old male. Refer to note in patient chart for documentation of history and physical. Referring Physician: Annie Ortiz (pa) (Referring MD) Medicines: Fentanyl 75 micrograms IV, Midazolam 3 mg IV, Benzocaine spray Complications: No immediate complications. Requesting Provider: Procedure: Pre-Anesthesia Assessment: - Prior to the procedure, a History and Physical was performed, and patient medications and allergies were reviewed. The patient's tolerance of previous anesthesia was also reviewed. The risks and benefits of the procedure and the sedation options and risks were discussed with the patient. All questions were answered, and informed consent was obtained. Prior Anticoagulants: The patient has taken no anticoagulant or antiplatelet agents. ASA Grade Assessment: III - A patient with severe systemic disease. After reviewing the risks and benefits, the patient was deemed in satisfactory condition to undergo the procedure. After obtaining informed consent, the endoscope was passed under direct vision. Throughout the procedure, the patient's blood pressure, pulse, and oxygen saturations were monitored continuously. The Endoscope was introduced through the mouth, and advanced to the second part of duodenum. The upper GI endoscopy was accomplished without difficulty. The patient tolerated the procedure well. Moderate Sedation: The administration of moderate sedation was initiated at 12:23 PM. Moderate (conscious) sedation was administered by the endoscopy nurse and supervised by the endoscopist. The patient's oxygen saturation, heart rate, blood pressure and response to care were monitored. Total Procedure Duration: 0 hours 3 minutes 19 seconds Findings: The Z-line was regular and was found 40 cm from the incisors. The examined esophagus was normal. Biopsies were obtained from the proximal and distal esophagus with cold forceps for histology of suspected eosinophilic esophagitis. Patchy mild inflammation characterized by erythema was found in the gastric antrum. Biopsies were taken with a cold forceps for Helicobacter pylori testing. The examined duodenum was normal. Impression: - Z-line regular, 40 cm from the incisors. - Normal esophagus. Biopsied. - Gastritis. Biopsied. - Normal examined duodenum. Recommendation: - Discharge patient to home. - Resume previous diet. - Continue present medications. - Await pathology results. - Return to referring physician. Procedure Code(s): --- Professional --- 57856, Esophagogastroduodenoscopy , flexible, transoral; with biopsy, single or multiple Diagnosis Code(s): --- Professional --- K29.70, Gastritis, unspecified, without bleeding R13.10, Dysphagia, unspecified CPT copyright 2020 [employer]. All rights reserved. The codes documented in this report are preliminary and upon outside machinist review may be revised to meet current compliance requirements. Attending Participation: I personally performed the entire procedure. Scope In: 12:29:57 PM Scope Out: 12:33:16 PM MD Rik Hansen MD 01/18/2023 12:37:00 PM This report has been signed electronically by Rik Vilchis MD Number of Addenda: 0 Note Initiated On: 01/18/2023 12:03 PM Estimated Blood Loss: Estimated blood loss was minimal. Normal [facility] XR HIP 2V AP/LAT LEFT ([place] ,[place])on 08-04-2022 [facility] COLONOSCOPY SCREENINGon 05-30 [facility] XR Cervical spine AP and Lat eral and obliqueon 03-15-2022 IMPRESSION: Cervical spine mild degenerative changes as described above. Milk Hauler: PSCB Transcribe Date/Time: Mar 15 2022 5:01P Dictated by : ANDREI CASTLE MD This examination was interpreted and the report reviewed and electronically signed by: ANDREI CASTLE MD on Mar 15 2022 5:03PM EST ZZZ_DO_NOT_U SE_DIVISION OF RADIOLOGY * * *Final Report* * * DATE OF EXAM: Mar 15 2022 4:59PM WOX [id number] - XR CERVICAL 4V AP/LAT/OBL / PROCEDURE REASON: Neck pain * * * * Physician Interpretation * * * * EXAM TITLE: XR CERVICAL 4V AP/LAT/OBL EXAM DATE/TIME: 03/15/2022 4:59 PM COMPARISON: None. CLINICAL INDICATION/HISTORY: Neck pain. TECHNIQUE: AP, lateral, and oblique views of the cervical spine are presented. FINDINGS: No fractures or subluxations are noted. C5-6 mild disc space narrowing is demonstrated. There is mild osteophyte formation. The neural foramina are patent. The prevertebral soft tissues are normal. ZZZ_DO_NOT_U _DIVISION OF RADIOLOGY Provider, [facility] - 03/15/2022 * * *Final Report* * * DATE OF EXAM: Mar 15 2022 4:59PM WOX [id number] - XR CERVICAL 4V AP/LAT/OBL / PROCEDURE REASON: Neck pain * * * * Physician Interpretation * * * * EXAM TITLE: XR CERVICAL 4V AP/LAT/OBL EXAM DATE/TIME: 03/15/2022 4:59 PM COMPARISON: None. CLINICAL INDICATION/HISTORY: Neck pain. TECHNIQUE: AP, lateral, and oblique views of the cervical spine are presented. FINDINGS: No fractures or subluxations are noted. C5-6 mild disc space narrowing is demonstrated. There is mild osteophyte formation. The neural foramina are patent. The prevertebral soft tissues are normal. IMPRESSION IMPRESSION: Cervical spine mild degenerative changes as described above. Milk Hauler: PSCB Transcribe Date/Time: Mar 15 2022 5:01P Dictated by : ANDREI CASTLE MD This examination was interpreted and the report reviewed and electronically signed by: ANDREI CASTLE MD on Mar 15 2022 5:03PM EST [facility] Radiology Study observation (narrative) [facility] XR Cervical spine AP and Lat eral and obliqueOrdered By: Ccf Provider on 03-15-2022 [facility] Absolute lymphocyte counton 02-21-2022 Lymphocytes Auto (Unsp spec) [#/Vol] 1.40 10*3/uL 0.83-4.51 [facility] Work Phone: Basophil percentageon 2021 Basophils/100 WBC (Bld) 0.5 % 0-1 [facility] Work Phone: Chloride [Moles/Vol] 108 mmol/L 98-107 [facility] Work Phone: Eosinophils/100 WBC (Bld) 5.2 % 0-5 [facility] Work Phone: Glucose [Mass/Vol] 91 mg/dL 74-106 [facility] Work Phone: Neutrophils (Bld) [#/Vol] 2.2 10*3/uL 2.0-7.7 [facility] Work Phone: Neutrophils/100 WBC (Bld) 51.5 % 47-70 [facility] Work Phone: Potassium [Moles/Vol] 4.7 mmol/L 3.5-5.1 [facility] Work Phone: Sodium [Moles/Vol] 140 mmol/L 136-145 [facility] Work Phone: WBC (Bld) [#/Vol] 4.2 10*3/uL 4.4-11.0 [facility] Work Phone: [phone] Blood erythrocytes count (nu mber/volume)on 02-21-2022 RBC (Bld) [#/Vol] 4.65 10*6/uL 4.6-6.2 [facility] Work Phone: [phone] Blood hemoglobin measurement (mass/volume)on 02-21-2022 Hemoglobin (Bld) [Mass/Vol] 14.2 g/dL 13.0-16.5 [facility] Work Phone: [phone] Blood lymphocytes/100 leukoc yteson 02-21-2022 Lymphocytes/100 WBC (Bld) 33.3 % 19-41 [facility] Work Phone: [phone] Blood monocytes/100 leukocyt eson 02-21-2022 Monocytes/100 WBC (Bld) 9.3 % 0-10 [facility] Work Phone: [phone] Blood platelet mean volumeon 02-21-2022 Platelet mean volume (Bld) [Entitic vol] 10.3 fL 6.2-12.0 [facility] Work Phone: [phone] Determination of erythrocyte mean corpuscular volume (MCV)on 02-21-2022 MCV (RBC) [Entitic vol] 92.0 fL 80-94 [facility] Work Phone: Hematocrit Auto (Bld) [Volum e fraction]on 02-21-2022 Hematocrit (Bld) [Volume fraction] 42.8 % 40-54 [facility] Work Phone: Laboratory - Chemistry and C hemistry - challengeon 02-21-2022 CO2 [Moles/Vol] 29.0 mmol/L 21.0-32.0 [facility] Work Phone: [phone] Urea nitrogen/Creatinine [Mass ratio] 22.2 mg/mg 10-20 [facility] Work Phone: [phone] Laboratory - Hematology and Cell countson 02-21-2022 Erythrocyte distribution width (RBC) [Entitic vol] 41.8 fL 35.1-43.9 [facility] Work Phone: [phone] Erythrocyte distribution width (RBC) [Ratio] 12.4 % 11.6-14.6 [facility] Work Phone: [phone] Immature granulocytes/100 WBC (Bld) 0.200 % 0.0-0.9 [facility] Work Phone: [phone] Comment on above: IG% - Immature Granu locytes (promyelocytes, myelocytes and metamyelocytes) > 1% indicates that a LEFT SHIFT is Present. MCH (RBC) [Entitic mass] 30.5 pg 27.0-32.0 [facility] Work Phone: [phone] Nucleated RBC/100 WBC (Bld) [Ratio] 0 % 0-5 [facility] Work Phone: [phone] MCHC Auto (RBC) [Mass/Vol]on 02-21-2022 MCHC (RBC) [Mass/Vol] 33.2 g/dL 32-36 [facility] Work Phone: [phone] Panel Informationon 02-21 Estimated Creatinine Clearance Calc 99.65 ml/min [facility] Work Phone: [phone] Estimated GFR (MDRD) Amer 145 mL/min >60 [facility] Work Phone: [phone] Comment on above: GFR Calc Estimated GFR (MDRD) Non-Af Amer 120 mL/min >60 [facility] Work Phone: [phone] Comment on above: Non- GFR Calc Platelets bldon 02-21-2022 Platelets (Bld) [#/Vol] 156 10*3/uL 150-450 [facility] Work Phone: [phone] Serum or plasma calcium melisa urement (mass/volume)on 02-21-2022 Calcium [Mass/Vol] 9.0 mg/dL 8.5-10.1 [facility] Work Phone: [phone] Serum or plasma creatinine m easurement (mass/volume)on 02-21-2022 Creatinine [Mass/Vol] 0.72 mg/dL 0.70-1.30 [facility] Work Phone: Comment on above: The validity of the calculated GFR & GFRAA in patients over 70 years has not been determined. Clinical correlation is essential. Serum or plasma urea nitroge n measurement (mass/volume)on 02-21-2022 Urea nitrogen [Mass/Vol] 16 mg/dL 7-18 [facility] Work Phone: Thin prep Papanicolaou smear with manual screeningon 02-21-2022 Thin prep Papanicolaou smear with manual screening 3 5-15 [facility] Work Phone: XR Knee AP and Lateral and M erchantson 11-23-2021 IMPRESSION: Patchy osteoporosis of the left knee, otherwise no significant bone or articular disease. Milk Hauler: PSCZelalem Transcribe Date/Time: Nov 23 2021 3:21P Dictated by : CARLOS MEZA MD This examination was interpreted and the report reviewed and electronically signed by: CARLOS MEZA MD on Nov 23 2021 3:23PM [facility] DIVISION OF RADIOLOGY * * *Final Report* * * DATE OF EXAM: Nov 23 2021 3:18PM CYX 5208 - XR KNEE 3V AP/LAT/MERCHANT LT / PROCEDURE REASON: Post-traumatic osteoarthritis of left hip * * * * Physician Interpretation * * * * HISTORY: PT STWS LEFT KNEE PAIN NO PREV INJURY. Post-traumatic osteoarthritis of left hip . TECHNIQUE: XR KNEE 3V AP/LAT/MERCHANT LT Laterality: LEFT Number of different views (projections): 3 COMPARISON: None RESULT: No gross effusion. This no fracture. There is patchy osteoporosis of the left knee. There is no joint space narrowing present. DIVISION OF RADIOLOGY Provider, [facility] - 11/23/2021 * * *Final Report* * * DATE OF EXAM: Nov 23 2021 3:18PM CYX 5208 - XR KNEE 3V AP/LAT/MERCHANT LT / PROCEDURE REASON: Post-traumatic osteoarthritis of left hip * * * * Physician Interpretation * * * * HISTORY: PT STWS LEFT KNEE PAIN NO PREV INJURY. Post-traumatic osteoarthritis of left hip . TECHNIQUE: XR KNEE 3V AP/LAT/MERCHANT LT Laterality: LEFT Number of different views (projections): 3 COMPARISON: None RESULT: No gross effusion. This no fracture. There is patchy osteoporosis of the left knee. There is no joint space narrowing present. IMPRESSION IMPRESSION: Patchy osteoporosis of the left knee, otherwise no significant bone or articular disease. Milk Hauler: DANIEL Transcribe Date/Time: Nov 23 2021 3:21P Dictated by : CARLOS MEZA MD This examination was interpreted and the report reviewed and electronically signed by: CARLOS MEZA MD on Nov 23 2021 3:23PM EST [facility] Radiology Study observation (narrative) [facility] XR Knee AP and Lateral and M erchantsOrdered By: Ccf Provider on 11-23-2021 [facility] XR Finger - right AP and Lat eral and obliqueon 05-19-2021 IMPRESSION: No acute radiographic abnormalities seen in the right first digit. Milk Hauler: DANIEL Transcribe Date/Time: May 19 2021 2:20P Dictated by : ANDREI CASTLE MD This examination was interpreted and the report reviewed and electronically signed by: ANDREI CASTLE MD on May 19 2021 2:21PM [facility] DIVISION OF RADIOLOGY * * *Final Report* * * DATE OF EXAM: May 19 2021 12:29PM WOX [id number] - XR DIGIT 3V FRONTAL/LAT/OBL RT / PROCEDURE REASON: Sutured skin wound * * * * Physician Interpretation * * * * EXAM TITLE: XR DIGIT 3V FRONTAL/LAT/OBL RT EXAM DATE/TIME: 05/19/2021 12:29 PM COMPARISON: None. CLINICAL INDICATION/HISTORY: Injury one month ago. TECHNIQUE: PA, lateral and oblique views of the first digit of the right hand are presented. FINDINGS: No acute fractures or subluxations are noted. The joint spaces are well preserved. The mineralization of the bones is normal. There is no significant soft tissue swelling. DIVISION OF RADIOLOGY Provider, [facility] Ovidio Ott - 05/19/2021 * * *Final Report* * * DATE OF EXAM: May 19 2021 12:29PM WOX [id number] - XR DIGIT 3V FRONTAL/LAT/OBL RT / PROCEDURE REASON: Sutured skin wound * * * * Physician Interpretation * * * * EXAM TITLE: XR DIGIT 3V FRONTAL/LAT/OBL RT EXAM DATE/TIME: 05/19/2021 12:29 PM COMPARISON: None. CLINICAL INDICATION/HISTORY: Injury one month ago. TECHNIQUE: PA, lateral and oblique views of the first digit of the right hand are presented. FINDINGS: No acute fractures or subluxations are noted. The joint spaces are well preserved. The mineralization of the bones is normal. There is no significant soft tissue swelling. IMPRESSION IMPRESSION: No acute radiographic abnormalities seen in the right first digit. Milk Hauler: PSCB Transcribe Date/Time: May 19 2021 2:20P Dictated by : ANDREI CASTLE MD This examination was interpreted and the report reviewed and electronically signed by: ANDREI CASTLE MD on May 19 2021 2:21PM EST [facility] Radiology Study observation (narrative) [facility] XR Finger - right AP and Lat eral and obliqueOrdered By: Ccf Provider on 05-19-2021 [facility] Vital Signs Date Time Vital Sign Value Performing Clinician Faci lity 07-02-2025 13:32-0400 Body height 165.1 cm Sheron Mark MD Work Phone: [facility] 07-02-2025 13:32-0400 Body mass index (BMI) [Ratio] 43.82 kg/m2 Sheron Mark MD Work Phone: [facility] 07-02-2025 13:32-0400 Body temperature 98.1 [degF] Sheron Mark MD Work Phone: [facility] 07-02-2025 13:32-0400 Body weight 119.45 kg Sheron Mark MD Work Phone: [facility] 07-02-2025 13:32-0400 Diastolic blood pressure 81 mm[Hg] Sheron Mark MD Work Phone: [facility] 07-02-2025 13:32-0400 Heart rate 80 /min Sheron Mark MD Work Phone: [facility] 07-02-2025 13:32-0400 SaO2% (BldA) [Mass fraction] 94 % Sheron Mark MD Work Phone: [facility] 07-02-2025 13:32-0400 Systolic blood pressure 130 mm[Hg] Sheron Mark MD Work Phone: [facility] 06-17-2025 13:40-0400 Body mass index (BMI) [Ratio] 43.43 kg/m2 Myah Arteaga MD Work Phone: [facility] 06-17-2025 13:40-0400 Body weight 118.39 kg Myah Arteaga MD Work Phone: [facility] 06-17-2025 13:40-0400 Diastolic blood pressure 72 mm[Hg] Myah Arteaga MD Work Phone: [facility] 06-17-2025 13:40-0400 Heart rate 77 /min Myah Arteaga MD Work Phone: [facility] 06-17-2025 13:40-0400 SaO2% (BldA) [Mass fraction] 96 % Myah Arteaga MD Work Phone: [facility] 06-17-2025 13:40-0400 Systolic blood pressure 132 mm[Hg] Myah Arteaga MD Work Phone: [facility] 06-02-2025 09:39-0400 Body height 165.1 cm Layla Lewis MD Work Phone: [facility] 06-02-2025 09:39-0400 Body mass index (BMI) [Ratio] 44.26 kg/m2 Layla Lewis MD Work Phone: [facility] 06-02-2025 09:39-0400 Body weight 120.66 kg Layla Lewis MD Work Phone: [facility] 06-02-2025 09:39-0400 Diastolic blood pressure 84 mm[Hg] Layla Lewis MD Work Phone: [facility] 06-02-2025 09:39-0400 Heart rate 64 /min Layla Lewis MD Work Phone: [facility] 06-02-2025 09:39-0400 Systolic blood pressure 130 mm[Hg] Layla Lewis MD Work Phone: [facility] 05-05-2025 13:45-0400 Body height 165.1 cm Natali Butler MD Work Phone: [facility] 05-05-2025 13:45-0400 Body mass index (BMI) [Ratio] 43.67 kg/m2 Natali Butler MD Work Phone: [facility] 05-05-2025 13:45-0400 Body temperature 97.11 [degF] Natali Butler MD Work Phone: [facility] 05-05-2025 13:45-0400 Body weight 119.02 kg Natali Butler MD Work Phone: [facility] 05-05-2025 13:45-0400 Diastolic blood pressure 86 mm[Hg] Natali Butler MD Work Phone: [facility] 05-05-2025 13:45-0400 Heart rate 83 /min Natali Butler MD Work Phone: [facility] 05-05-2025 13:45-0400 SaO2% (BldA) [Mass fraction] 93 % Natali Butler MD Work Phone: [facility] 05-05-2025 13:45-0400 Systolic blood pressure 122 mm[Hg] Natali Butler MD Work Phone: [facility] 05-01-2025 09:14-0400 Body mass index (BMI) [Ratio] 42.67 kg/m2 Tara Suppan SHIFT BOSS.LEATHER SORTER Work Phone: [facility] 05-01-2025 09:14-0400 Body weight 119.3 kg Tara Suppan SHIFT BOSS.[employer]ATHER [employer]TER Work Phone: [facility] 05-01-2025 09:14-0400 Diastolic blood pressure 78 mm[Hg] Tara Suppan SHIFT BOSS.LEATHER [employer]TER Work Phone: [facility] 05-01-2025 09:14-0400 Heart rate 63 /min Tara Suppan SHIFT BOSS.LEATHER [employer]ORTER Work Phone: [facility] 05-01-2025 09:14-0400 SaO2% (BldA) [Mass fraction] 94 % Tara Hilliard SHIFT BOSS.LEATHER SORTER Work Phone: [facility] 05-01-2025 09:14-0400 Systolic blood pressure 128 mm[Hg] Tara Suppjarod SHIFT BOSS.LEATHER SORTER Work Phone: [facility] 01-01-2025 12:09-0500 Body mass index (BMI) [Ratio] 43.35 kg/m2 Annie Donato SHIFT BOSS.LEATHER [employer]ORTER Work Phone: [facility] 01-01-2025 12:09-0500 Body temperature 97.2 [degF] Annie Donato SHIFT BOSS.LEATHER [employer]ORTER Work Phone: [facility] 01-01-2025 12:09-0500 Body weight 121.2 kg Annie Donato SHIFT BOSS.LEATHER [employer]TER Work Phone: [facility] 01-01-2025 12:09-0500 Diastolic blood pressure 80 mm[Hg] Annie Donato SHIFT [employer]OSS.LEATHER [employer]ORTER Work Phone: [facility] 01-01-2025 12:09-0500 Heart rate 60 /min Annie Donato SHIFT [employer].LEATHER [employer]TER Work Phone: [facility] 01-01-2025 12:09-0500 Respiratory rate 16 /min Annie Donato SHIFT [employer]OSS.LEATHER SORTER Work Phone: [facility] 01-01-2025 12:09-0500 SaO2% (BldA) [Mass fraction] 94 % Annie Donato SHIFT [employer]OSS.LEATHER SORTER Work Phone: [facility] 01-01-2025 12:09-0500 Systolic blood pressure 120 mm[Hg] Annie Donato SHIFT BOSS.LEATHER [employer]ORTER Work Phone: [facility] 12-18-2024 09:19-0500 Body mass index (BMI) [Ratio] 43.48 kg/m2 Myah Arteaga MD Work Phone: [facility] 12-18-2024 09:19-0500 Body weight 121.56 kg Myah Arteaga MD Work Phone: [facility] 12-18-2024 09:19-0500 Diastolic blood pressure 78 mm[Hg] Myah Arteaga MD Work Phone: [facility] 12-18-2024 09:19-0500 Heart rate 62 /min Myah Arteaga MD Work Phone: [facility] 12-18-2024 09:19-0500 SaO2% (BldA) [Mass fraction] 94 % Myah Arteaga MD Work Phone: [facility] 12-18-2024 09:19-0500 Systolic blood pressure 124 mm[Hg] Myah Arteaga MD Work Phone: [facility] 10-03-2024 11:03-0500 Body height 167.2 cm Layla Lewis MD Work Phone: [facility] 10-03-2024 11:03-0500 Body mass index (BMI) [Ratio] 43.65 kg/m2 Layla Lewis MD Work Phone: [facility] 10-03-2024 11:03-0500 Body weight 122.02 kg Layla Lewis MD Work Phone: [facility] 10-03-2024 11:03-0500 Diastolic blood pressure 70 mm[Hg] Layla Lewis MD Work Phone: [facility] 10-03-2024 11:03-0500 Heart rate 63 /min Layla Lewis MD Work Phone: [facility] 10-03-2024 11:03-0500 Systolic blood pressure 130 mm[Hg] Layla Lewis MD Work Phone: [facility] 10-01-2024 10:44-0500 Body mass index (BMI) [Ratio] 42.19 kg/m2 Lacy Kessler MD Work Phone: [facility] 10-01-2024 10:44-0500 Body weight 117.94 kg Lacy Kessler MD Work Phone: [facility] 10-01-2024 10:44-0500 Diastolic blood pressure 82 mm[Hg] Lacy Kessler MD Work Phone: [facility] 10-01-2024 10:44-0500 Heart rate 62 /min Lacy Kessler MD Work Phone: [facility] 10-01-2024 10:44-0500 Respiratory rate 18 /min Lacy Kessler MD Work Phone: [facility] 10-01-2024 10:44-0500 SaO2% (BldA) [Mass fraction] 95 % Lacy Kessler MD Work Phone: [facility] 10-01-2024 10:44-0500 Systolic blood pressure 130 mm[Hg] Lacy Kessler MD Work Phone: [facility] 08-15-2024 07:46-0400 Body height 167.2 cm Pulm Wstr Work Phone: [facility] 08-15-2024 07:46-0400 Body mass index (BMI) [Ratio] 43.32 kg/m2 Pulm Wstr Work Phone: [facility] 08-15-2024 07:46-0400 Body weight 121.11 kg Pulm Wstr Work Phone: [facility] 08-15-2024 07:46-0400 Heart rate 72 /min Pulm Wstr Work Phone: [facility] 08-15-2024 07:46-0400 Respiratory rate 14 /min Pulm Wstr Work Phone: [facility] 08-15-2024 07:46-0400 SaO2% (BldA) [Mass fraction] 94 % Pulm Wstr Work Phone: [facility] 08-06-2024 08:35-0400 Body mass index (BMI) [Ratio] 44.1 kg/m2 Tara Hilliard APRN.LEATHER SORTER Work Phone: [facility] 08-06-2024 08:35-0400 Body weight 120.2 kg Tara Suppan SHIFT [employer]OSS.[employer]ATHER [employer]TER Work Phone: [facility] 08-06-2024 08:35-0400 Diastolic blood pressure 66 mm[Hg] Tara Suppan SHIFT [employer]ATHER [employer]TER Work Phone: [facility] 08-06-2024 08:35-0400 Heart rate 66 /min Tara Suppan SHIFT [employer]ATHER [employer]TER Work Phone: [facility] 08-06-2024 08:35-0400 Respiratory rate 24 /min Tara Suppan SHIFT [employer].LEATHER [employer]TER Work Phone: [facility] 08-06-2024 08:35-0400 SaO2% (BldA) [Mass fraction] 96 % Tara Suppan SHIFT [employer]OSS.LEATHER [employer]ORTER Work Phone: [facility] 08-06-2024 08:35-0400 Systolic blood pressure 148 mm[Hg] Tara Suppan SHIFT [employer]OSS.LEATHER [employer]ORTER Work Phone: [facility] 07-23-2024 11:25-0400 Body mass index (BMI) [Ratio] 43.93 kg/m2 Tara Suppan SHIFT [employer]OSS.LEATHER [employer]ORTER Work Phone: [facility] 07-23-2024 11:25-0400 Body weight 119.75 kg Tara Suppan SHIFT [employer]OSS.LEATHER [employer]TER Work Phone: [facility] 07-23-2024 11:25-0400 Diastolic blood pressure 70 mm[Hg] Tara Suppan SHIFT [employer]ATHER [employer]TER Work Phone: [facility] 07-23-2024 11:25-0400 Heart rate 61 /min Tara Suppan SHIFT [employer]ATHER [employer]TER Work Phone: [facility] 07-23-2024 11:25-0400 Respiratory rate 24 /min Tara Suppan SHIFT [employer]OSS.LEATHER [employer]ORTER Work Phone: [facility] 07-23-2024 11:25-0400 SaO2% (BldA) [Mass fraction] 93 % Tara Suppan SHIFT [employer]OSS.LEATHER [employer]TER Work Phone: [facility] 07-23-2024 11:25-0400 Systolic blood pressure 132 mm[Hg] Tara Hilliard SHIFT [employer]ATHER [employer]TER Work Phone: [facility] 07-17-2024 13:33-0400 Body temperature 101.8 [degF] Marita Haagen SHIFT [employer]ATH[employer]TER Work Phone: [facility] 07-17-2024 13:33-0400 Diastolic blood pressure 88 mm[Hg] Marita Haagen SHIFT [employer]ATHER [employer]TER Work Phone: [facility] 07-17-2024 13:33-0400 Heart rate 97 /min Marita Haagen SHIFT [employer]ATHER [employer]TER Work Phone: [facility] 07-17-2024 13:33-0400 Respiratory rate 18 /min Marita Haagen SHIFT [employer]OSS.LEATHER [employer]ORTER Work Phone: [facility] 07-17-2024 13:33-0400 SaO2% (BldA) [Mass fraction] 89 % Marita Haagen SHIFT BOSS.LEATHER [employer]ORTER Work Phone: [facility] 07-17-2024 13:33-0400 Systolic blood pressure 138 mm[Hg] Marita Haagen SHIFT [employer]OSS.LEATHER [employer]ORTER Work Phone: [facility] 07-06-2024 09:42-0400 Body mass index (BMI) [Ratio] 44.46 kg/m2 Jennifer Kavya SHIFT [employer]OSS.LEATHER [employer]TER Work Phone: [facility] 07-06-2024 09:42-0400 Body temperature 97.3 [degF] Jennifer Kavya SHIFT [employer]OSS.[employer]ATHER [employer]TER Work Phone: [facility] 07-06-2024 09:42-0400 Body weight 121.2 kg Jennifer Walland SH[employer].LEATHER [employer]TER Work Phone: [facility] 07-06-2024 09:42-0400 Diastolic blood pressure 79 mm[Hg] Jennifer Kavya SHIFT [employer]ATHER [employer]TER Work Phone: [facility] 07-06-2024 09:42-0400 Heart rate 70 /min Jennifer Walland SHIFT [employer]OSS.LEATHER [employer]TER Work Phone: [facility] 07-06-2024 09:42-0400 Respiratory rate 18 /min Jennifer Kavya SHIFT [employer]OSS.LEATHER [employer]TER Work Phone: [facility] 07-06-2024 09:42-0400 SaO2% (BldA) [Mass fraction] 95 % Jennifer Kavya SHIFT [employer]OSS.LEATHER [employer]ORTER Work Phone: [facility] 07-06-2024 09:42-0400 Systolic blood pressure 155 mm[Hg] Jennifer Walland SHIFT [employer].LEATHER [employer]TER Work Phone: [facility] 06-10-2024 09:43-0400 Diastolic blood pressure 89 mm[Hg] Myah Arteaga MD Work Phone: [facility] 06-10-2024 09:43-0400 Systolic blood pressure 134 mm[Hg] Myah Arteaga MD Work Phone: [facility] 06-10-2024 08:58-0400 Body mass index (BMI) [Ratio] 44.93 kg/m2 Myah Arteaga MD Work Phone: [facility] 06-10-2024 08:58-0400 Body weight 122.47 kg Myah Arteaga MD Work Phone: [facility] 06-10-2024 08:58-0400 Heart rate 57 /min Myah Arteaga MD Work Phone: [facility] 06-10-2024 08:58-0400 SaO2% (BldA) [Mass fraction] 94 % Myah Arteaga MD Work Phone: [facility] 03-22-2024 08:10-0400 Body mass index (BMI) [Ratio] 46.22 kg/m2 Santy Colón MD Work Phone: [facility] 03-22-2024 08:10-0400 Body weight 126 kg Santy Colón MD Work Phone: [facility] 03-22-2024 08:10-0400 Diastolic blood pressure 83 mm[Hg] Santy Colón MD Work Phone: [facility] 03-22-2024 08:10-0400 Heart rate 59 /min Santy Colón MD Work Phone: [facility] 03-22-2024 08:10-0400 Systolic blood pressure 135 mm[Hg] Santy Colón MD Work Phone: [facility] 02-26-2024 08:46-0400 Body mass index (BMI) [Ratio] 44.26 kg/m2 Felicia Aarti [employer] Work Phone: [facility] 02-26-2024 08:46-0400 Body weight 120.66 kg Felicia Aarti [employer] Work Phone: [facility] 02-26-2024 08:46-0400 Diastolic blood pressure 86 mm[Hg] Felicia Aarti [employer] Work Phone: [facility] 02-26-2024 08:46-0400 Heart rate 59 /min Felicia Aarti [employer] Work Phone: [facility] 02-26-2024 08:46-0400 Respiratory rate 18 /min Felicia Aarti [employer] Work Phone: [facility] 02-26-2024 08:46-0400 SaO2% (BldA) [Mass fraction] 95 % Felicia Aarti [employer] Work Phone: [facility] 02-26-2024 08:46-0400 Systolic blood pressure 143 mm[Hg] Felicia Aarti [employer] Work Phone: [facility] 02-13-2024 13:17-0400 Body height 165.1 cm Myah Arteaga MD Work Phone: [facility] 02-13-2024 13:17-0400 Body weight 120.66 kg Myah Arteaga MD Work Phone: [facility] 02-13-2024 13:17-0400 Diastolic blood pressure 74 mm[Hg] Myah Arteaga MD Work Phone: [facility] 02-13-2024 13:17-0400 Heart rate 67 /min Myah Arteaga MD Work Phone: [facility] 02-13-2024 13:17-0400 SaO2% (BldA) [Mass fraction] 93 % Myah Arteaga MD Work Phone: [facility] 02-13-2024 13:17-0400 Systolic blood pressure 134 mm[Hg] Myah Arteaga MD Work Phone: [facility] 12-11-2023 09:47-0500 Body height 165.1 cm Myah Arteaga MD Work Phone: [facility] 12-11-2023 09:47-0500 Body weight 126.19 kg Myah Arteaga MD Work Phone: [facility] 12-11-2023 09:47-0500 Diastolic blood pressure 88 mm[Hg] Myah Arteaga MD Work Phone: [facility] 12-11-2023 09:47-0500 Heart rate 56 /min Myah Arteaga MD Work Phone: [facility] 12-11-2023 09:47-0500 SaO2% (BldA) [Mass fraction] 94 % Myah Arteaga MD Work Phone: [facility] 12-11-2023 09:47-0500 Systolic blood pressure 130 mm[Hg] Myah Arteaga MD Work Phone: [facility] 06-08-2023 09:41-0400 Body height 165.1 cm Myah Arteaga MD Work Phone: [facility] 06-08-2023 09:41-0400 Body weight 125.83 kg Myah Arteaga MD Work Phone: [facility] 06-08-2023 09:41-0400 Diastolic blood pressure 82 mm[Hg] Myah Arteaga MD Work Phone: [facility] 06-08-2023 09:41-0400 Heart rate 61 /min Myah Arteaga MD Work Phone: [facility] 06-08-2023 09:41-0400 SaO2% (BldA) [Mass fraction] 96 % Myah Arteaga MD Work Phone: [facility] 06-08-2023 09:41-0400 Systolic blood pressure 128 mm[Hg] Myah Arteaga MD Work Phone: [facility] 04-15-2023 16:48-0400 Body height 165.[address] [facility] 04-15-2023 16:48-0400 Body mass index (BMI) [Ratio] 46.9 kg/m2 [facility] 04-15-2023 16:48-0400 Body temperature 97.8 [degF] [facility] 04-15-2023 16:48-0400 Body weight 127.[address] [facility] 04-15-2023 16:48-0400 Diastolic blood pressure 96 mm[Hg] [facility] 04-15-2023 16:48-0400 Heart rate 98 /min [facility] 04-15-2023 16:48-0400 Respiratory rate 18 /min [facility] 04-15-2023 16:48-0400 SaO2% (BldA) [Mass fraction] 94 % [facility] 04-15-2023 16:48-0400 Systolic blood pressure 187 mm[Hg] [facility] 01-18-2023 13:15-0400 Diastolic blood pressure 71 mm[Hg] Rik Vilchis MD Work Phone: [facility] 01-18-2023 13:15-0400 Heart rate 72 /min Rik Vilchis MD Work Phone: [facility] 01-18-2023 13:15-0400 Respiratory rate 18 /min Rik Vilchis MD Work Phone: [facility] 01-18-2023 13:15-0400 SaO2% (BldA) [Mass fraction] 91 % Rik Vilchis MD Work Phone: [facility] 01-18-2023 13:15-0400 Systolic blood pressure 136 mm[Hg] Rik Vilchis MD Work Phone: [facility] 01-18-2023 12:43-0400 Body temperature 97 [degF] Rik Vilchis MD Work Phone: [facility] 01-18-2023 11:51-0400 Body height 165.1 cm Rik Vilchis MD Work Phone: [facility] 01-18-2023 11:51-0400 Body weight 126.1 kg Rik Vilchis MD Work Phone: [facility] 01-16-2023 08:46-0400 Body height 165.1 cm [facility] 01-16-2023 08:46-0400 Body weight 124.74 kg [facility] 10-27-2022 14:04-0500 Diastolic blood pressure 86 mm[Hg] Myah Arteaga MD Work Phone: [facility] 10-27-2022 14:04-0500 Systolic blood pressure 138 mm[Hg] Myah Arteaga MD Work Phone: [facility] 10-27-2022 13:43-0500 Body weight 124.74 kg Myah Arteaga MD Work Phone: [facility] 10-27-2022 13:43-0500 Heart rate 70 /min Myah Arteaga MD Work Phone: [facility] 10-27-2022 13:43-0500 SaO2% (BldA) [Mass fraction] 97 % Myah Arteaga MD Work Phone: [facility] 08-04-2022 08:04-0400 Body height 165.1 cm Hesham Grater [employer] Work Phone: [facility] 08-04-2022 08:04-0400 Body weight 118.84 kg Hesham Grater [employer] Work Phone: [facility] 05-06-2022 13:11-0400 Body height 165.1 cm Jake Alberto PA-C Work Phone: [facility] 05-06-2022 13:11-0400 Body temperature 97.59 [degF] Jake Trufant PA-C Work Phone: [facility] 05-06-2022 [id number] Body weight 118.57 kg Jake Remy PA-C Work Phone: [facility] 05-06-2022 13:11-0400 Diastolic blood pressure 82 mm[Hg] Jake Trufant PA-C Work Phone: [facility] 05-06-2022 13:11-0400 Heart rate 81 /min Jake Remy PA-C Work Phone: [facility] 05-06-2022 [id number] SaO2% (BldA) [Mass fraction] 95 % Jake Trufant PA-C Work Phone: [facility] 05-06-2022 13:11-0400 Systolic blood pressure 124 mm[Hg] Jake Trufant PA-C Work Phone: [facility] 04-27-2022 13:10-0400 Body weight 118.84 kg Myah Arteaga MD Work Phone: [facility] 04-27-2022 13:10-0400 Diastolic blood pressure 72 mm[Hg] Myah Arteaga MD Work Phone: [facility] 04-27-2022 13:10-0400 Heart rate 68 /min Myah Arteaga MD Work Phone: [facility] 04-27-2022 13:10-0400 Systolic blood pressure 122 mm[Hg] Myah Arteaga MD Work Phone: [facility] 02-25-2022 10:20-0400 Body height 165.1 cm Edward Dhaliwal MD Work Phone: [facility] 02-25-2022 10:20-0400 Body temperature 96.8 [degF] Edward Dhaliwal MD Work Phone: [facility] 02-25-2022 10:20-0400 Body weight 120.2 kg Edward Dhaliwal MD Work Phone: [facility] 02-25-2022 10:20-0400 Diastolic blood pressure 78 mm[Hg] Edward Dhaliwal MD Work Phone: [facility] 02-25-2022 10:20-0400 Heart rate 78 /min Edward Dhaliwal MD Work Phone: [facility] 02-25-2022 10:20-0400 Respiratory rate 14 /min Edward Dhaliwal MD Work Phone: [facility] 02-25-2022 10:20-0400 SaO2% (BldA) [Mass fraction] 98 % Edward Dhaliwal MD Work Phone: [facility] 02-25-2022 10:20-0400 Systolic blood pressure 143 mm[Hg] Edward Dhaliwal MD Work Phone: [facility] 02-21-2022 14:24-0400 Diastolic blood pressure 93 mm[Hg] [facility] Work Phone: 02-21-2022 14:24-0400 Systolic blood pressure 151 mm[Hg] [facility] Work Phone: 02-21-2022 13:30-0400 Heart rate 64 /min [facility] Work Phone: 02-21-2022 13:30-0400 Respiratory rate 14 /min [facility] Work Phone: 02-21-2022 13:30-0400 SaO2% (BldA) [Mass fraction] 97 % [facility] Work Phone: 02-21-2022 09:48-0400 Body height 165.[address] [facility] Work Phone: 02-21-2022 09:48-0400 Body mass index (BMI) [Ratio] 44.7 kg/m2 [facility] Work Phone: 02-21-2022 09:48-0400 Body temperature 96.4 [degF] [facility] Work Phone: 02-21-2022 09:48-0400 Body weight [address] [facility] Work Phone: 02-21-2022 08:33-0400 Body weight 121.75 kg Marita Haagen [employer] Work Phone: [facility] 02-21-2022 08:33-0400 Diastolic blood pressure 98 mm[Hg] Marita Haagen [employer] Work Phone: [facility] 02-21-2022 08:33-0400 Heart rate 68 /min Marita Haagen [employer] Work Phone: [facility] 02-21-2022 08:33-0400 Respiratory rate 18 /min Marita Haagen [employer] Work Phone: [facility] 02-21-2022 08:33-0400 SaO2% (BldA) [Mass fraction] 98 % Marita Haagen [employer] Work Phone: [facility] 02-21-2022 08:33-0400 Systolic blood pressure 138 mm[Hg] Marita Haagen [employer] Work Phone: [facility] Encounters Encounter Date Encounter Type Care Provider Facility Start: 09-10-2025 End: 09-10-2025 ambulatory [facility] Facility:[facility] Start: 09-09-2025 End: 09-09-2025 ambulatory [facility] Facility:[facility] Start: 08-12-2025 End: 08-12-2025 [facility] Facility:[facility] Start: 08-05-2025 ambulatory [facility] Facility :[facility] Start: 08-04-2025 End: 08-04-2025 ambulatory [facility] Facility:[facility] Start: 07-16-2025 End: 07-16-2025 Telephone encounter Tim Gibbs MD Work Phone: Endocrinology Comment on above: Medication Preauthor ization (tirzepatide, weight loss (ZEPBOUND) 2.5 mg/0.5 mL solution) Start: 07-09-2025 End: 07-10-2025 ambulatory Sheron Mark MD Work Phone: Endocrinology Comment on above: Prescription Start: 07-08-2025 End: 07-08-2025 Telephone encounter Myah Arteaga MD Work Phone: [facility] [place] Comment on above: Insurance Authorizat ion Start: 07-03-2025 End: 07-04-2025 Refill Myah Arteaga MD Work Phone: [facility] [place] Comment on above: Refill Request Start: 07-02-2025 End: 07-02-2025 ambulatory [facility] Facility:[facility] Start: 07-02-2025 End: 07-02-2025 Patient encounter procedure Sheron Mark MD Work Phone: Endocrinology Comment on above: Hypertension, unspec ified type (Primary Dx); Dyslipidemia; Gastroesophageal reflux disease, unspecified whether esophagitis present; AMANDA (obstructive sleep apnea); Morbid obesity (HCC) Start: 07-02-2025 End: 07-02-2025 [facility] Facility:[facility] Start: 07-01-2025 End: 07-01-2025 [facility] Facility:[facility] Start: 07-01-2025 End: 07-01-2025 Nursing evaluation of patient and report Nurse [facility] Work Phone: General Surgery Comment on above: Visit for suture rem oval (Primary Dx) Start: 06-23-2025 End: 06-23-2025 Patient encounter procedure Natali Butler MD Work Phone: General Surgery Comment on above: Pigmented skin lesio n of uncertain behavior of torso (Primary Dx) Start: 06-23-2025 End: 06-23-2025 ambulatory NATALI BUTLER Facility: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 Start: 06-09-2025 End: 06-09-2025 Nursing evaluation of patient and report Nurse Mar[facility] Work Phone: General Surgery Comment on above: Visit for suture rem oval (Primary Dx) Start: 06-09-2025 End: 06-09-2025 ambulatory [facility] Facility:[facility] Start: 06-02-2025 End: 06-02-2025 ambulatory [facility] Facility:[facility] Start: 06-02-2025 End: 06-02-2025 Patient encounter procedure Layla Lewis MD Work Phone: Cardiology Comment on above: Other chest pain (Pr imary Dx); Coronary artery calcification; Essential hypertension Start: 05-19-2025 End: 05-20-2025 Follow-up encounter Santy Colón MD Work Phone: Kidney Medicine Start: 05-19-2025 End: 05-19-2025 Patient encounter procedure Natali Butler MD Work Phone: General Surgery Comment on above: Skin lesion (Primary Dx); Dysesthesia Start: 05-19-2025 End: 05-19-2025 ambulatory [facility] Facility:[facility] Start: 05-06-2025 End: 05-06-2025 Refill Myah Arteaga MD Work Phone: [facility] Comment on above: Refill Request Start: 05-05-2025 End: 05-05-2025 Patient encounter procedure Natali Butler MD Work Phone: General Surgery Comment on above: Skin lesion of back; Dysesthesia Start: 05-05-2025 End: 05-05-2025 ambulatory TARA A SUPPAN Facility:[facility] Start: 05-01-2025 End: 05-01-2025 Office outpatient visit 15 minutes Tara Hilliard [employer] Work Phone: Family [facility] [place] Comment on above: Neoplasm of skin (Pr imary Dx); Proteinuria, unspecified type Start: 05-01-2025 End: 05-01-2025 ambulatory TARA HILLIARD Facility:[facility] Start: 04-29-2025 End: 04-29-2025 ambulatory MYAH ARTEAGA Facility:[facility] Start: 03-10-2025 End: 03-10-2025 Get Medical Advice Myah Arteaga MD Work Phone: Family [facility] [place] Comment on above: Refills Start: 03-10-2025 End: 03-12-2025 Refill Lacy Kessler MD Work Phone: Pulmonary Medicine Comment on above: Refill Request Start: 03-04-2025 End: 03-04-2025 Telephone encounter Myah Arteaga MD Work Phone: Family [facility] [place] Comment on above: Lidocaine Start: 02-25-2025 End: 02-25-2025 ambulatory Myah Arteaga MD Work Phone: Family [facility] [place] Comment on above: Medication Start: 02-25-2025 End: 02-25-2025 Telephone encounter Myah Arteaga MD Work Phone: Family [facility] [place] Comment on above: Pharmacy Call Start: 01-01-2025 End: 01-01-2025 Subsequent hospital visit by physician Jojo [facility] Work Phone: Radiology Comment on above: Rib pain on left kristen e [R07.81] Start: 01-01-2025 End: 01-01-2025 ambulatory MYAH ARTEAGA Facility:[facility] Start: 01-01-2025 End: 01-01-2025 Patient encounter procedure Annie Donato [employer] Work Phone: [facility] Comment on above: Rib pain on left kristen e (Primary Dx); Muscle strain of chest wall, initial encounter Start: 12-19-2024 End: 12-19-2024 ambulatory Myah Arteaga MD Work Phone: [facility] Comment on above: results Start: 12-19-2024 End: 12-19-2024 E-mail encounter from caregiver Myah Arteaga MD Work Phone: [facility] Start: 12-19-2024 End: 12-19-2024 Follow-up encounter Santy Colón MD Work Phone: Kidney Medicine Comment on above: Polycythemia (Primar y Dx); Hypothyroidism, unspecified type Start: 12-18-2024 End: 12-18-2024 ambulatory MYAH ARTEAGA Facility:[facility] Start: 12-18-2024 End: 12-18-2024 [facility] Facility:[facility] Start: 12-18-2024 End: 12-18-2024 Patient encounter procedure Myah Arteaga MD Work Phone: [facility] Comment on above: Essential hypertensi on (Primary Dx); Mixed hyperlipidemia; AMANDA (obstructive sleep apnea); Gastroesophageal reflux disease, unspecified whether esophagitis present; Proteinuria, unspecified type; Morbid obesity (HCC); Mass of spine; Screening for prostate cancer; Secondary male hypogonadism; Fatigue, unspecified type; Fatty liver; Vitamin D deficiency; Need for vaccination Start: 10-15-2024 End: 10-15-2024 Patient encounter procedure [facility] Work Phone: Cardiology Comment on above: Coronary artery calc ification (Primary Dx) Start: 10-15-2024 End: [facility] Start: 10-15-2024 End: 10-15-2024 Subsequent hospital visit by physician Symone Bliss Work Phone: Molecular and Functional Imaging Comment on above: Coronary artery calc ification [I25.10] Start: 10-03-2024 End: 10-03-2024 ambulatory LAYLA LEWIS Facility:[facility] Start: 10-03-2024 End: 10-03-2024 Patient encounter procedure Layla Lewis MD Work Phone: Cardiology Comment on above: Coronary artery calc ification (Primary Dx); Other chest pain; HTN (hypertension), benign Start: 10-01-2024 End: 10-01-2024 [facility] Work [facility] Comment on above: Spirometry Coronary artery calc ification (Primary Dx) Start: 10-01-2024 End: 10-01-2024 Patient encounter [facility] Work Phone: [facility] Comment on above: Post-COVID chronic c ough (Primary Dx); Gastroesophageal reflux disease, unspecified whether esophagitis present; Morbid obesity (HCC); Lung nodule Start: 09-04-2024 End: 09-05-2024 Telephone encounter Marita Moore APRN.[employer]ATHER [employer]TER Work Phone: [facility] [place] Comment on above: pharmacy asking to c hange rx Start: 08-15-2024 End: 08-16-2024 Telephone encounter Tara Hilliard APRN.[employer]ATHER [employer]TER Work Phone: [facility] [place] Comment on above: Results Start: 08-15-2024 End: 08-15-2024 ambulatory [facility] Work Phone: [facility] Comment on above: Spirometry Start: 08-15-2024 End: 08-15-2024 Patient encounter procedure [facility] Work Phone: [facility] Start: 08-14-2024 End: 08-15-2024 Refill Myah Arteaga MD Work Phone: [facility] [place] Comment on above: Refill Request medication clarifica tion Start: 08-06-2024 End: 08-06-2024 Office outpatient visit 25 minutes Tara Hilliard APRN.LEATHER [employer]TER Work Phone: [facility] [place] Comment on above: Moderate persistent reactive airway disease with wheezing without complication (Primary Dx); Mononeuritis of lower extremity, unspecified laterality Start: 08-05-2024 End: 08-05-2024 ambulatory Tara Hilliard APRN.LEATHER [employer]TER Work Phone: [facility] Comment on above: Ct Start: 08-05-2024 End: 08-05-2024 Telephone encounter Tara Hilliard [employer] Work Phone: [facility] Comment on above: Results Start: 07-30-2024 End: 07-30-2024 Subsequent hospital visit by physician [facility] ([facility]) Work Phone: Cat Scan Comment on above: COVID-19 [U07.1] Start: 07-23-2024 End: 07-23-2024 Office outpatient visit 15 minutes Tara Hilliard [employer]ATHER [employer]TER Work Phone: [facility] Comment on above: COVID-19 (Primary Dx ); Acute respiratory failure with hypoxia (HCC) Start: 07-22-2024 End: 07-22-2024 Patient Outreach Myah Arteaga MD Work Phone: [facility] Comment on above: Transition Of Care Start: 07-17-2024 ambulatory [facility] [place] Start: 07-17-2024 End: 07-19-2024 Evaluation and management of inpatient [facility] Facility:[facility] Start: 07-17-2024 End: 07-17-2024 Subsequent hospital visit by physician X[facility] Work Phone: Radiology Comment on above: Acute cough [R05.1] Start: 07-17-2024 End: 07-17-2024 Office outpatient visit 25 minutes Marita Moore [employer] Work Phone: [facility] [place] Comment on above: Bronchitis (Primary Dx); Acute cough Start: 07-08-2024 End: 07-08-2024 Telephone encounter Myah Arteaga MD Work Phone: [facility] Comment on above: Patient Question Start: 07-08-2024 End: 07-08-2024 Subsequent hospital visit by physician Jojo [facility] Work Phone: Radiology Comment on above: Cough, unspecified t ype [R05.9] Start: 07-06-2024 End: 07-06-2024 ambulatory Megan Villanueva MD Work Phone: [facility] Comment on above: Acute cough (Primary Dx) Cough; Covid19 Susy rn Start: 07-06-2024 End: 07-06-2024 Telemedicine consultation with patient Megan Villanueva MD Work Phone: Virtual Medicine Start: 07-06-2024 End: 07-06-2024 Patient encounter procedure Jennifer Hoff APRN.LEATHER SORTER [facility] Comment on above: Upper respiratory in fection, acute (Primary Dx) Start: 06-10-2024 End: 06-10-2024 Patient encounter procedure Myah Arteaga MD Work Phone: [facility] [place] Comment on above: Essential hypertensi on (Primary Dx); Mixed hyperlipidemia; AMANDA (obstructive sleep apnea); Gastroesophageal reflux disease, unspecified whether esophagitis present; Traumatic brain injury with loss of consciousness, subsequent encounter; Morbid obesity (HCC); Anxiety; Fatty liver; Medication monitoring encounter; Hypogonadism in male; Screening for prostate cancer Start: 06-03-2024 ambulatory Santy Colón MD Work Phone: Kidney Medicine Comment on above: Blood Pressure Start: 05-22-2024 ambulatory Myah Arteaga MD Work Phone: [facility] [place] Comment on above: Test Result Start: 05-22-2024 Telephone encounter Myah Arteaga MD Work Phone: [facility] [place] Comment on above: Results Start: 04-29-2024 ambulatory Sheron dove MD Work Phone: Endocrinology Comment on above: Non Sugeral Weight L oss Start: 04-26-2024 Telephone encounter Felicia shannon [employer]TER Work Phone: Neurology [facility] Comment on above: [facility] Equipment confirmation Start: 04-22-2024 ambulatory Santy Colón MD Work Phone: Kidney Medicine Comment on above: Medication Start: 04-18-2024 ambulatory Felicia Broussard APRN.LEATHER [employer]TER Work Phone: Neurology Comment on above: Sleep Test Start: 04-15-2024 End: 04-15-2024 ambulatory FELICIA BROUSSARD Facility:[facility] Start: 03-22-2024 End: 03-22-2024 Patient encounter procedure Santy Colón MD Work Phone: Kidney Medicine Comment on above: Proteinuria, unspeci fied type (Primary Dx); Essential hypertension; Morbid obesity (HCC) Start: 03-08-2024 ambulatory MYAH ARTEAGA Facility :[facility] Start: 03-08-2024 End: 03-08-2024 Subsequent hospital visit by physician [facility] (1.5t) RADIO [facility] Comment on above: Other specified diso rders of kidney and ureter [N28.89] Start: 02-27-2024 ambulatory Myah Arteaga MD Work Phone: [facility] [place] Comment on above: Kidneys Start: 02-27-2024 Telephone encounter Felicia shannon APRN.LEATHER SORTER Work Phone: Neurology Start: 02-26-2024 End: 02-26-2024 ambulatory Sheron Mark MD Work Phone: Endocrinology Comment on above: AMANDA (obstructive sle ep apnea) (Primary Dx); Dyslipidemia; Morbid obesity (HCC) Start: 02-26-2024 End: 02-26-2024 Telemedicine consultation with patient Sheron Mark MD Work Phone: Endocrinology Start: 02-26-2024 End: 02-26-2024 Patient encounter procedure Felicia Broussard APRN.LEATHER SORTER Work Phone: Neurology Comment on above: AMANDA (obstructive sle ep apnea) (Primary Dx); Vitamin D deficiency; RLS (restless legs syndrome); Chronic insomnia; Frequent nocturnal awakening Start: 02-23-2024 ambulatory Judith monge RN NURSE WOODYARD OPERATOR Comment on above: Patient Update Start: 02-23-2024 Telephone encounter Myah Arteaga MD Work Phone: [facility] [place] Comment on above: Results Start: 02-22-2024 End: 02-22-2024 Subsequent hospital visit by physician [facility] Work Phone: Radiology Comment on above: Proteinuria, unspeci fied type [R80.9] Start: 02-21-2024 Telephone encounter Myah Arteaga MD Work Phone: [facility] [place] Comment on above: Results Start: 02-21-2024 End: 02-21-2024 Subsequent hospital visit by physician Mri [facility] (I-Stat/1.5t) Work Phone: Radiology Comment on above: Soft tissue mass [M7 9.89] Start: 02-16-2024 Telephone encounter Myah Arteaga MD Work Phone: [facility] [place] Comment on above: Results Start: 02-14-2024 Telephone encounter Myah Arteaga MD Work Phone: [facility] [place] Comment on above: Results Start: 02-13-2024 Telephone encounter Myah Arteaga MD Work Phone: [facility] [place] Comment on above: Orders Start: 02-13-2024 End: 02-13-2024 Patient encounter procedure Myah Arteaga MD Work Phone: [facility] [place] Comment on above: Pruritus (Primary Dx ) Start: 02-13-2024 ambulatory MYAH ARTEAGA Facility :[id number] Start: 02-13-2024 End: 02-13-2024 Subsequent hospital visit by physician Mri [facility] Work Phone: RADIO [facility] Start: 02-12-2024 ambulatory Myah Arteaga MD Work Phone: [facility] [place] Comment on above: Itching sensation Start: 02-12-2024 Telephone encounter Myah Arteaga MD Work Phone: [facility] [place] Comment on above: Results (Also prior auth) Start: 01-09-2024 ambulatory Myah Arteaga MD Work Phone: [facility] [place] Comment on above: Weight Management Start: 12-24-2023 Letter encounter [employer] Work Phone: Start: 12-11-2023 End: 12-11-2023 Patient encounter procedure Myah Arteaga MD Work Phone: [facility] Comment on above: Essential hypertensi on (Primary Dx); Secondary male hypogonadism; Traumatic brain injury with loss of consciousness, subsequent encounter; Mixed hyperlipidemia; AMANDA (obstructive sleep apnea); Gastroesophageal reflux disease, unspecified whether esophagitis present; Right foot drop; Medication monitoring encounter; Screening for prostate cancer; Need for vaccination Start: 10-13-2023 Telephone encounter [facility] Start: 09-19-2023 Telephone encounter Myah Arteaga MD Work Phone: [facility] Comment on above: Insurance Authorizat ion ([employer] ) Start: 09-16-2023 Letter encounter Kathy raolukas Start: 07-19-2023 Telephone encounter Myah Artaega MD Work Phone: [facility] Comment on above: Appointment Start: 07-17-2023 ambulatory Myah Arteaga MD Work Phone: [facility] Comment on above: Testosterone Start: 07-16-2023 ambulatory Myah Arteaga MD Work Phone: [facility] Comment on above: Testerone Replacemen t. Start: 07-11-2023 Telephone encounter Myah Arteaga MD Work Phone: [facility] Comment on above: Results Start: 07-07-2023 End: 07-07-2023 ambulatory [facility] Work Phone: Start: 07-07-2023 End: 07-07-2023 Discharged Recurring [facility]-Physical Therapy Work Phone: Start: 06-27-2023 Chart abstracting [facility] Work Phone: Neurology Start: 06-08-2023 End: 06-08-2023 Patient encounter procedure Myah Arteaga MD Work Phone: [facility] Comment on above: Oropharyngeal dyspha wilda (Primary Dx); Secondary male hypogonadism; Essential hypertension; Mixed hyperlipidemia; AMANDA (obstructive sleep apnea); DDD (degenerative disc disease), lumbar; Depression, unspecified depression type; Elevated prolactin level; Screening for prostate cancer Start: 05-29-2023 End: 05-29-2023 ambulatory [facility] Work Phone: Start: 05-29-2023 End: 05-29-2023 Patient encounter procedure [facility]-Radiology, [facility] Work Phone: Start: 05-26-2023 End: 05-26-2023 Nursing evaluation of patient and report Mi Nurse Work Phone: [facility] Comment on above: Need for vaccination (Primary Dx) Start: 04-26-2023 End: 04-26-2023 Nursing evaluation of patient and report Mi Nurse Work Phone: [facility] Comment on above: Need for vaccination (Primary Dx) Start: 04-24-2023 Telephone encounter Myah Arteaga MD Work Phone: [facility] Comment on above: Orders Start: 04-15-2023 End: 04-15-2023 Emergency department patient visit [facility]-Emergency Department Start: 02-20-2023 End: 02-20-2023 ambulatory Amena Chaudhary CCC-BONING ROOM WORKER Work Phone: [facility] Comment on above: Dysphagia, unspecifi ed type (Primary Dx) Start: 01-18-2023 ambulatory RIK Bates ty:[facility] Start: 01-18-2023 End: 01-18-2023 Subsequent hospital visit by physician Rik Vilchis MD Work Phone: [facility] Comment on above: Pharyngeal dysphagia [R13.13] Start: 01-16-2023 End: 01-16-2023 Admission to establishment [facility] Main [facility] Start: 01-16-2023 End: 01-16-2023 ambulatory P[facility] Virtual Pre Anesthesia Comment on above: Pre-op evaluation (P rimary Dx); Essential hypertension; Mixed hyperlipidemia; Hepatitis C antibody positive in blood; Gastroesophageal reflux disease, unspecified whether esophagitis present; Depression, unspecified depression type; Anxiety; AMANDA (obstructive sleep apnea); Traumatic brain injury with loss of consciousness, subsequent encounter; Morbid obesity (HCC) Start: 01-16-2023 End: 01-16-2023 Preprocedural examination done Pac Virtual Pre Anesthesia Start: 01-10-2023 End: 01-10-2023 Patient encounter procedure Cynthia Varner MD Work Phone: Otolaryngology Comment on above: Dysphagia, unspecifi ed type (Primary Dx); Sensorineural hearing loss (SNHL) of both ears Start: 12-21-2022 Letter encounter Kathy raofilomena Start: 12-16-2022 End: 12-16-2022 ambulatory Annie Ortiz PA-C Work Phone: [facility] [place] Comment on above: Pharyngeal dysphagia (Primary Dx) Start: 12-16-2022 End: 12-16-2022 Telemedicine consultation with patient Annie Ortiz PA-C Work Phone: [facility] Start: 12-13-2022 End: 12-13-2022 Patient encounter procedure Nida CHOWDARY Work Phone: Audiology Comment on above: Sensorineural hearin g loss (SNHL) of both ears (Primary Dx); Subjective tinnitus of both ears Start: 12-12-2022 Refill M Agus Morataya on PA-C Work Phone: [facility] Comment on above: Refill Request Start: 11-28-2022 ambulatory Myah Arteaga MD Work Phone: [facility] [place] Comment on above: EKG and lab work Start: 10-27-2022 End: 10-27-2022 Patient encounter procedure Myah Arteaga MD Work Phone: [facility] Comment on above: Mixed hyperlipidemia (Primary Dx); AMANDA (obstructive sleep apnea); Elevated prolactin level; Primary hypertension; GERD without esophagitis; Adjustment disorder with depressed mood; Recurrent acute serous otitis media of right ear Start: 09-19-2022 ambulatory Radha Shah MD Work Phone: Endocrinology Comment on above: Question regarding T ESTOSTERONE, FREE AND TOTAL Start: 09-12-2022 ambulatory Radha Shah MD Work Phone: Endocrinology Comment on above: Question regarding P ROLACTIN BLD Start: 09-08-2022 ambulatory Hesham Leachr SHIFT BOSS.LEATHER SORTER Work Phone: Orthopaedics Comment on above: Left hip Start: 09-06-2022 ambulatory Radha Shah MD Work Phone: Endocrinology Comment on above: Cabergoline Start: 08-04-2022 End: 08-04-2022 Patient encounter procedure Hesham Koch SHIFT BOSS.LEATHER SORTER Work Phone: Orthopaedics Comment on above: Psoas tendonitis of left side (Primary Dx); Status post left hip replacement Start: 08-04-2022 End: 08-04-2022 Subsequent hospital visit by physician [facility] Yue Mars Work Phone: Radiology Comment on above: Pain in left hip [M2 5.552] Start: 07-20-2022 Orders Only Hesham Leachr SHIFT BOSS.LEATHER SORTER Work Phone: Orthopaedics Comment on above: Pain in left hip (Pr imary Dx) Start: 07-12-2022 ambulatory Hesham Koch SHIFT BOSS.LEATHER SORTER Work Phone: Orthopaedics Comment on above: Hip Replacement Start: 06-27-2022 Refill Myah Arteaga MD Work Phone: [facility] Comment on above: Refill Request Start: 06-24-2022 Telephone encounter Jake warren PA-C Work Phone: General Surgery Comment on above: Results (Colonoscopy results/) Start: 05-10-2022 ambulatory Myah Arteaga MD Work Phone: [facility] Comment on above: Physicatric medicati on Start: 05-06-2022 Telephone encounter Jake warren PA-C Work Phone: General Surgery Comment on above: 06/09/[address] Payne Start: 05-06-2022 End: 05-06-2022 Patient encounter procedure Jake Alberto PA-C Work Phone: General Surgery Comment on above: Screening for colon cancer Start: 04-27-2022 End: 04-27-2022 Patient encounter procedure Myah Arteaga MD Work Phone: [facility] Comment on above: Primary hypertension (Primary Dx); Secondary male hypogonadism; Elevated prolactin level; Screening for colon cancer; Adjustment disorder with depressed mood; AMANDA (obstructive sleep apnea); Mixed hyperlipidemia Start: 04-13-2022 Telephone encounter Rashi CHRISTENSEN Work Phone: Psychology Comment on above: OTHER ([facility]) Start: 03-29-2022 Telephone encounter Myah Arteaga MD Work Phone: [facility] Comment on above: Blood Pressure Check Start: 03-15-2022 End: 03-15-2022 Subsequent hospital visit by physician Xr [facility] Work Phone: Radiology Comment on above: Neck pain [M54.2] Start: 03-08-2022 End: 03-08-2022 Patient encounter procedure Angelica Bourne APRN.LEATHER SORTER Work Phone: Dermatology Comment on above: Actinic keratosis (P rimary Dx) Start: 02-25-2022 End: 02-25-2022 Patient encounter procedure Edward Dhaliwal MD Work Phone: [facility] Comment on above: Recurrent major depr essive disorder, remission status unspecified (HCC) (Primary Dx); Balance problem; Tinnitus, unspecified laterality Start: 02-22-2022 Telephone encounter Edward Dhaliwal MD Work Phone: [facility] Comment on above: Rec'd fax from [facility] ([facility] records scanned in to chart) Start: 02-21-2022 End: 02-21-2022 Emergency department patient visit [facility]-Emergency Department Start: 02-21-2022 End: 02-21-2022 Patient encounter procedure Marita Moore APRN.LEATHER SORTER Work Phone: [facility] Comment on above: Facial numbness (Xin светлана Dx); Elevated prolactin level; Dizziness; Screening for hyperlipidemia; Benign prostatic hyperplasia with lower urinary tract symptoms, symptom details unspecified; Special screening examination for viral disease Start: 02-04-2022 End: 02-04-2022 Patient encounter procedure Hehsam Grater SHIFT BOSS.LEATHER SORTER Work Phone: Orthopaedics Comment on above: Status post left hip replacement (Primary Dx) Start: 12-16-2021 Letter encounter Kathy montejo Start: 11-23-2021 End: 11-23-2021 Subsequent hospital visit by physician Xr [facility] [place] Work Phone: Radiology Comment on above: Post-traumatic osteo arthritis of left hip [M16.52] Start: 05-19-2021 End: 05-19-2021 Subsequent hospital visit by physician X[facility] [place] Work Phone: Radiology Comment on above: Sutured skin wound [ T14.8XXA] Start: 01-24-2021 End: 01-24-2021 Orders Only Adina Monaco Work Phone: [facility] Internal Medicine Start: 12-17-2020 End: 12-17-2020 Letter encounter [facility] Start: 09-24-2020 End: 09-24-2020 Letter encounter [facility] Start: 07-12-2018 Patient encounter [facility] Facil ity:[facility] Start: 07-09-2018 End: 07-10-2018 Patient encounter [facility] Facility:[facility] Start: 06-13-2018 Patient encounter [facility] Facil ity:[facility] Procedures Date Procedure Procedure Detail Performing Clinician Start: 07-02-2025 Lipid 1996 panel - Serum or Plasma Sunil Arteaga MD Work Phone: Start: 06-02-2025 Ecg routine ecg w/least 12 lds i&r only Layla Lewis MD Work Phone: Start: 01-01-2025 Radex ribs uni w/posteroant ch minimum 3 views Annie Donato SHIFT BOSS.LEATHER SORTER Work Phone: Start: 10-15-2024 Myocardial spect multiple studies Layla Lewis MD Work Phone: Start: 10-03-2024 Ecg routine ecg w/least 12 lds i&r only Layla Lewis MD Work Phone: Start: 10-01-2024 Nitric oxide gas determination Lacy Angelica Brown MD Work Phone: Start: 08-15-2024 Brncdilat rspse spmtry pre&post-brncdilat admn Tara Hilliard SHIFT BOSS.LEATHER SORTER Work Phone: Start: 07-17-2024 Radiologic exam chest 2 views Marita Martinez josué SHIFT BOSS.LEATHER SORTER Work Phone: Start: 07-08-2024 Radiologic exam chest 2 views Myah Arteaga MD Work Phone: Start: 02-21-2024 Mri spinal canal thoracic w/o & w/contr matrl Myah Arteaga MD Work Phone: Start: 02-15-2024 Protein total xcpt refractometry urine Myah Arteaga MD Work Phone: Start: 02-09-2024 Lipid 1996 panel - Serum or Plasma Sunil Arteaga MD Work Phone: Start: 12-11-2023 [employer] COVID-19 VACCINE ( SEASON) AGE 12+ YR Myah Arteaga MD Work Phone: Start: 06-12-2023 Lipid 1996 panel - Serum or Plasma Sunil Arteaga MD Work Phone: Start: 05-29-2023 X-ray of cervical spine Start: 01-18-2023 Esophagogastroduodenoscopy transoral diagnostic Annie Ortiz PA-C Work Phone: Start: 08-04-2022 Radex hip unilateral with pelvis 2-3 views Hesham Koch SHIFT BOSS.LEATHER SORTER Work Phone: Start: 06-09-2022 Colonoscopy Jake Alberto PA-C Work Phone: Start: 03-15-2022 Radex spine cervical 4 or 5 views Vaishali Arteaga MD Work Phone: Start: 02-24-2022 Adult depression screening assessment Edward Dhaliwal MD Work Phone: Start: 02-21-2022 MRI of brain with contrast Start: 11-23-2021 Radiologic examination knee 3 views Home Carrillo MD Work Phone: Start: 05-19-2021 Radex fingr minimum 2 views Myah Christine MD Work Phone: Start: 05-19-2021 Adult depression screening assessment Hesham Koch APRN.LEATHER SORTER Work Phone: Start: 04-17-2012 Colonoscopy Hesham Koch APRN.CNP Work Phone: Plan of Treatment Date Care Activity Detail Author Start: 04-15-2033 Urine microalbumin profile [facility] Start: 06-09-2032 Colonoscopy COLONOSCOPY [facility] Start: 06-09-2032 COLORECTAL CANCER SCREENING COLORECTAL CANCER SCREENING [facility] Start: 06-09-2032 Screening for malignant neoplasm of colon [facility] Start: 02-02-2031 Urine microalbumin profile DTAP,TDAP,TD (4 - Td or Tdap) [facility] Start: 07-02-2030 Lipid panel Lipid Screening [facility] Start: 07-02-2030 Prostate specific antigen measurement Prostate Cancer Screening Discussion [facility] Start: 12-18-2029 Prostate specific antigen measurement Prostate Cancer Screening Discussion [facility] Start: 06-14-2029 Prostate specific antigen measurement Prostate Cancer Screening Discussion [facility] Start: 02-08-2029 Lipid panel Lipid Screening [facility] Start: 02-08-2029 Prostate specific antigen measurement Prostate Cancer Screening Discussion [facility] Start: 07-02-2028 Diabetes Screening Diabetes Screening [facility] Start: 06-12-2028 Lipid 1996 panel - Serum or Plasma Lipid Screening [facility] Start: 06-12-2028 Lipid panel Lipid Screening [facility] Start: 06-12-2028 LIPID SCREEN LIPID SCREEN [facility] Start: 06-12-2028 PROSTATE CANCER SCREENING DISCUSSION PROSTATE CANCER SCREENING DISCUSSION [facility] Start: 06-12-2028 Prostate specific antigen measurement Prostate Cancer Screening Discussion [facility] Start: 12-18-2027 Diabetes Screening Diabetes Screening [facility] Start: 04-02-2027 Diabetes Screening Diabetes Screening [facility] Start: 03-23-2027 LIPID SCREEN LIPID SCREEN [facility] Start: 03-23-2027 PROSTATE CANCER SCREENING DISCUSSION PROSTATE CANCER SCREENING DISCUSSION [facility] Start: 02-12-2027 Diabetes Screening Diabetes Screening [facility] Start: 02-08-2027 Diabetes Screening Diabetes Screening [facility] Start: 07-02-2026 Hepatitis B surface antibody level LDL Cholesterol [facility] Start: 06-17-2026 Annual PCP Team Chronic Disease Visit Annual PCP Team Chronic Disease Visit [facility] Start: 06-12-2026 DIABETES SCREEN DIABETES SCREEN [facility] Start: 06-12-2026 Diabetes Screening Diabetes Screening [facility] Start: 05-25-2026 End: 05-25-2026 Patient encounter procedure 05/25/2026 10:00 AM EDT Office Visit Cardiology [address] [place] [address] Layla Lewis MD [address] [place], [place] [id number] 1 year fu Cardiology Comment on above: 1 year fu Start: 05-04-2026 End: 08-03-2026 C reactive protein [Mass/volume] in Serum or Plasma by High sensitivity method HIGH SENSITIVITY C-REACTIVE PROTEIN Lab Routine Other chest pain Coronary artery calcification Essential hypertension Expected: 05/04/2026, Expires: 08/03/2026 [facility] Comment on above: Expected: 05/04/2026, Expires: Start: 05-04-2026 End: 08-03-2026 Lipid 1996 panel - Serum or Plasma LIPID PANEL, FASTING Lab Routine Other chest pain Coronary artery calcification Essential hypertension Expected: 05/04/2026, Expires: 08/03/2026 [facility] Work Phone: Comment on above: Expected: 05/04/2026, Expires: Start: 05-01-2026 Annual PCP Team Chronic Disease Visit Annual PCP Team Chronic Disease Visit [facility] Start: 12-19-2025 End: 12-19-2025 Patient encounter procedure 12/19/2025 2:40 PM EST Office Visit Family Alistair Fraser [address] [facility] [place] [address] Myah Arteaga MD [address] [facility] [place] [id number] 6 mo follow up [facility] [place] Comment on above: 6 mo follow up Start: 12-18-2025 Annual PCP Team Chronic Disease Visit Annual PCP Team Chronic Disease Visit [facility] Start: 12-18-2025 BP Controlled (<130/80) BP Controlled (<130/80) [facility] in Start: 10-10-2025 End: 10-10-2025 Patient encounter procedure 10/10/2025 9:40 AM EST Office Visit Endocrinology [address] [place] [address] Sheron Mark MD [address] [place] [address] weight Endocrinology Comment on above: weight Start: 07-18-2025 End: 10-17-2025 CBC W Auto Differential panel - Blood COMPLETE BLOOD COUNT AND DIFFERENTIAL Lab Routine Essential hypertension Secondary male hypogonadism Expected: 07/18/2025, Expires: 10/17/2025 [facility] Comment on above: Expected: 07/18/2025, Expires: Start: 07-18-2025 End: 10-17-2025 Hepatic function 2000 panel - Serum or Plasma HEPATIC FUNCTION PNL Lab Routine Mixed hyperlipidemia Expected: 07/18/2025, Expires: 10/17/2025 [facility] Work Phone: Comment on above: Expected: 07/18/2025, Expires: Start: 07-18-2025 End: 10-17-2025 Lipid 1996 panel - Serum or Plasma LIPID PANEL, FASTING Lab Routine Mixed hyperlipidemia Expected: 07/18/2025, Expires: 10/17/2025 [facility] Comment on above: Expected: 07/18/2025, Expires: Start: 07-18-2025 End: 10-17-2025 PSA/PROSTATE SPECIFIC ANTIGEN SCREENING PSA/PROSTATE SPECIFIC ANTIGEN SCREENING Lab Routine Screening for malignant neoplasm of prostate Secondary male hypogonadism Expected: 07/18/2025, Expires: 10/17/2025 [facility] Comment on above: Expected: 07/18/2025, Expires: Start: 07-18-2025 End: 10-17-2025 Testosterone [Mass/volume] in Serum or Plasma TESTOSTERONE, TOTAL BY IMMUNOASSAY (ADULT MALES, OR INDIVIDUALS ON TESTOSTERONE THERAPY) Lab Routine Secondary male hypogonadism Expected: 07/18/2025, Expires: 10/17/2025 [facility] Comment on above: Expected: 07/18/2025, Expires: Start: 07-17-2025 Annual PCP Team Chronic Disease Visit Annual PCP Team Chronic Disease Visit [facility] Start: 07-02-2025 End: 07-02-2025 Patient encounter procedure 07/02/2025 1:40 PM EDT Office Visit Endocrinology [address] [place] [address] Sheron Mark MD [address] [place], [place] [phone] weight man. Endocrinology Comment on above: weight man. Start: 07-01-2025 End: 07-01-2025 Nursing evaluation of patient and report 07/01/2025 9:15 AM EDT Nurse Visit General Surgery [address] [place] [address] Wstr, Nurse [facility] [address] [place] [address] 1 wk f/u-remove suture General Surgery Comment on above: 1 wk f/u-remove suture Start: 06-30-2025 Influenza vaccination Influenza Vaccine (#1) [facility] Start: 06-23-2025 End: 06-23-2025 Patient encounter procedure General Surgery Comment on above: removal skin lesion removal skin lesion, clarify path results from previous excision bjs removal remaining sk in lesion, clarify path results from previous excision, need another consent bjs Start: 06-17-2025 End: 06-17-2025 Patient encounter procedure 06/17/2025 1:40 PM EDT Office Visit [facility] [place] [address] [place], [place] [id number] Myha Arteaga MD [address] [place], [place] [address] 6 month follow up [facility] [place] Comment on above: 6 month follow up Start: 06-10-2025 Annual PCP Team Chronic Disease Visit Annual PCP Team Chronic Disease Visit [facility] Start: 06-09-2025 End: 06-09-2025 Nursing evaluation of patient and report 06/09/2025 8:00 AM EDT Nurse Visit General Surgery [address] [place], [place] [phone] Wstr, Nurse [facility] [address] [facility] [place] [address] 3 weeks nurse visit remove 1 suture from each site (2) General Surgery Comment on above: 3 weeks nurse visit remove 1 suture from each site (2) Start: 06-03-2025 End: 06-03-2025 ambulatory [facility] Start: 06-02-2025 End: 06-02-2025 Patient encounter procedure 06/02/2025 9:00 AM EDT Office Visit Cardiology [address] [place] [address] Layla Lewis MD [address] [place] [id number] 4 month f/u Cardiology Comment on above: 4 month f/u Start: 05-19-2025 End: 05-19-2025 Patient encounter procedure 05/19/2025 8:30 AM EDT Office Visit General Surgery [address] [place] [place], [place] [address] Natali Butler MD [address] [place] [id number] Skin Lesions General Surgery Comment on above: Skin Lesions Start: 05-05-2025 End: 05-05-2025 Patient encounter procedure 05/05/2025 2:00 PM EDT Office Visit General Surgery [address] [place], [place] [id number] Natali Butler MD [address] [place] [id number] Neoplasm of skin [D49.2] General Surgery Comment on above: Neoplasm of skin [D49.2] Start: 04-29-2025 End: 04-29-2025 Patient encounter procedure 04/29/2025 2:40 PM EDT Office Visit Endocrinology [address] [facility] [address] [place] [address] Sheron Mark MD [address] [place] [address] WM follow up Endocrinology Comment on above: WM follow up Start: 03-23-2025 DIABETES SCREEN DIABETES SCREEN [facility] Start: 02-12-2025 Annual PCP Team Chronic Disease Visit Annual PCP Team Chronic Disease Visit [facility] Start: 02-08-2025 Hepatitis B surface antibody level LDL Cholesterol [facility] Start: 01-30-2025 End: 01-30-2025 Patient encounter procedure 01/30/2025 10:30 AM EDT Office Visit Cardiology [address] [place], [place] [id number] Layla Lewis MD [address] [place], [place] [id number] 4 month f/u Cardiology Comment on above: 4 month f/u Start: 01-25-2025 Annual PCP Team Chronic Disease Visit Annual PCP Team Chronic Disease Visit [facility] Start: 01-16-2025 End: 04-17-2025 CBC panel - Blood by Automated count COMPLETE BLOOD COUNT Lab Routine Polycythemia Hypothyroidism, unspecified type Expected: 01/16/2025, Expires: 04/17/2025 [facility] Work Phone: Comment on above: Expected: 01/16/2025, Expires: Start: 01-16-2025 End: 04-17-2025 Thyrotropin [Units/volume] in Serum or Plasma THYROID STIMULATING HORMONE Lab Routine Polycythemia Hypothyroidism, unspecified type Expected: 01/16/2025, Expires: 04/17/2025 [facility] Comment on above: Expected: 01/16/2025, Expires: Start: 01-16-2025 End: 04-17-2025 Thyroxine (T4) free [Mass/volume] in Serum or Plasma T4 FREE/FREE THYROXINE Lab Routine Polycythemia Hypothyroidism, unspecified type Expected: 01/16/2025, Expires: 04/17/2025 [facility] Comment on above: Expected: 01/16/2025, Expires: Start: 01-16-2025 End: 04-17-2025 Triiodothyronine (T3) [Mass/volume] in Serum or Plasma T3 Lab Routine Polycythemia Hypothyroidism, unspecified type Expected: 01/16/2025, Expires: 04/17/2025 [facility] Comment on above: Expected: 01/16/2025, Expires: Start: 01-13-2025 End: 04-14-2025 C reactive protein [Mass/volume] in Serum or Plasma by High sensitivity method HIGH SENSITIVITY C-REACTIVE PROTEIN Lab Routine Coronary artery calcification Other chest pain HTN (hypertension), benign Expected: 01/13/2025, Expires: 04/14/2025 [facility] Comment on above: Expected: 01/13/2025, Expires: Start: 01-13-2025 End: 04-14-2025 Lipid 1996 panel - Serum or Plasma LIPID PANEL BASIC Lab Routine Coronary artery calcification Other chest pain HTN (hypertension), benign Expected: 01/13/2025, Expires: 04/14/2025 [facility] Comment on above: Expected: 01/13/2025, Expires: Start: 12-18-2024 End: 03-19-2025 25-hydroxyvitamin D3 [Mass/volume] in Serum or Plasma [facility] Comment on above: Expected: 12/18/2024, Expires: Start: 12-18-2024 End: 03-19-2025 Comprehensive metabolic 2000 panel - Serum or Plasma [facility] Comment on above: Expected: 12/18/2024, Expires: Start: 12-18-2024 End: 03-19-2025 PSA/PROSTATE SPECIFIC ANTIGEN SCREENING [facility] Work Phone: Comment on above: Expected: 12/18/2024, Expires: Start: 12-18-2024 End: 03-19-2025 Testosterone [Mass/volume] in Serum or Plasma [facility] Comment on above: Expected: 12/18/2024, Expires: Start: 12-18-2024 End: 03-19-2025 Thyrotropin [Units/volume] in Serum or Plasma [facility] Comment on above: Expected: 12/18/2024, Expires: Start: 12-18-2024 End: 12-18-2024 Patient encounter procedure 12/18/2024 9:20 AM EST Office Visit [facility] [address] [place] [address] Myah Arteaga MD [address] [place] [address] 6 month follow up [facility] Comment on above: 6 month follow up Start: 12-11-2024 Annual PCP Team Chronic Disease Visit Annual PCP Team Chronic Disease Visit [facility] Start: 12-05-2024 DIABETES SCREEN DIABETES SCREEN [facility] Start: 12-03-2024 End: 12-03-2024 Patient encounter procedure 12/03/2024 8:30 AM EST Office Visit Pulmonary Medicine [address] [place] [address] Ghazala Estes APRN.LEATHER SORTER [address] [facility] [address] [place] [address] 2 month f/u Pulmonary Medicine Comment on above: 2 month f/u Start: 10-15-2024 End: 10-15-2024 Patient encounter procedure Molecular and Functional Imaging Comment on above: adenosine 10:30 per farida Start: 10-03-2024 End: 10-03-2024 Patient encounter procedure 10/03/2024 11:00 AM EST Office Visit Cardiology [address] [place], [place] [phone] Layla Lewis MD [address] [place] [address] Coronary artery calcification [I25.10] Cardiology Comment on above: Coronary artery calcification [I25.10] Start: 10-01-2024 End: 10-01-2024 Patient encounter procedure 10/01/2024 11:00 AM EST Office Visit Pulmonary Medicine [address] [place] [address] Lacy Kessler MD [address] [place] [address] Moderate persistent reactive airway disease with wheezing without complication [... Pulmonary Medicine Comment on above: Moderate persistent reactive airway dise ase with wheezing without complication [... Start: 08-15-2024 End: 08-15-2024 ambulatory 08/15/2024 7:30 AM EDT Procedure PULM LAB [facility] [address] [place] [address] Wstr, Pulm Lab [facility] [address] [place] [address] Moderate persistent reactive airway disease with wheezing without complication [... PULM LAB [facility] Comment on above: Moderate persistent reactive airway dise ase with wheezing without complication [... Start: 08-13-2024 End: 09-05-2025 SPIROMETRY WITH DILATOR IF OBSTRUCTED SPIROMETRY WITH DILATOR IF OBSTRUCTED PFT Routine Moderate persistent reactive airway disease with wheezing without complication Expected: 08/13/2024, Expires: 09/05/2025 [facility] Work Phone: Comment on above: Expected: 08/13/2024, Expires: Start: 08-06-2024 End: 08-06-2024 Patient encounter procedure 08/06/2024 8:40 AM EDT Office Visit [facility] [address] [place] [address] Tara Hilliard, SHIFT BOSS.LEATHER SORTER [address] [place] [address] 2 week covid/pnuemonia f/u [facility] Comment on above: 2 week covid/pnuemonia f/u Start: 07-30-2024 End: 07-30-2024 Patient encounter procedure 07/30/2024 1:40 PM EDT Appointment Cat Scan [address] [place] [address] COVID-19 [U07.1] Cat Scan Comment on above: COVID-19 [U07.1] Start: 07-26-2024 Annual PCP Team Chronic Disease Visit Annual PCP Team Chronic Disease Visit [facility] Start: 07-23-2024 End: 07-23-2024 Patient encounter procedure 07/23/2024 11:20 AM EDT Office Visit [facility] [address] [facility] [place] [address] Tara Hilliard APRN.LEATHER SORTER [address] [place] [address] [facility] Hosp F/U 07/17/24- Covid[facility] Comment on above: [facility] Hosp F/U 07/17/24- Covid, Hypox ia Start: 07-17-2024 End: 07-17-2024 Patient encounter procedure 07/17/2024 2:00 PM EDT Office Visit [facility] [address] [place] [address] Marita Moore APRN.LEATHER SORTER [address] [place] [address] F/u pneumonia (seen in on 07-06-24) [facility] Comment on above: F/u pneumonia (seen in on 07-06-24) Start: 07-11-2024 End: 10-10-2024 CBC W Auto Differential panel - Blood COMPLETE BLOOD COUNT AND DIFFERENTIAL Lab Routine Medication monitoring encounter Hypogonadism in male Expected: 07/11/2024, Expires: 10/10/2024 [facility] Comment on above: Expected: 07/11/2024, Expires: Start: 07-11-2024 End: 10-10-2024 PSA/PROSTATE SPECIFIC ANTIGEN SCREENING PSA/PROSTATE SPECIFIC ANTIGEN SCREENING Lab Routine Medication monitoring encounter Screening for prostate cancer Expected: 07/11/2024, Expires: 10/10/2024 [facility] Comment on above: Expected: 07/11/2024, Expires: Start: 07-11-2024 End: 10-10-2024 Testosterone [Mass/volume] in Serum or Plasma TESTOSTERONE, TOTAL Lab Routine Medication monitoring encounter Hypogonadism in male Expected: 07/11/2024, Expires: 10/10/2024 [facility] Work Phone: Comment on above: Expected: 07/11/2024, Expires: Start: 07-09-2024 End: 07-09-2024 Patient encounter procedure 07/09/2024 4:40 PM EDT Office Visit [facility] Alistair Fraser [address] [place] [phone] Myah Arteaga MD [address] [place], [place] [id number] F/u pneumonia (seen in on 07-06-24) Family [facility] Comment on above: F/u pneumonia (seen in on 07-06-24) Start: 06-30-2024 Covid-19 Vaccine () Covid-19 Vaccine () [facility] Start: 06-30-2024 Influenza [facility] Start: 06-12-2024 End: 09-11-2024 Renal function 2000 panel - Serum or Plasma RENAL FUNCTION PANEL Lab Routine Proteinuria, unspecified type Expected: 06/12/2024, Expires: 09/11/2024 [facility] Work Phone: Comment on above: Expected: 06/12/2024, Expires: Start: 06-10-2024 End: 06-10-2024 Patient encounter procedure 06/10/2024 9:20 AM EDT Office Visit [facility] [address] [facility] [place] [address] Myah Arteaga MD [address] [place] [address] 6 Month follow up [facility] Comment on above: 6 Month follow up Start: 06-08-2024 ANNUAL PCP TEAM CHRONIC DISEASE VISIT ANNUAL PCP TEAM CHRONIC DISEASE VISIT [facility] Start: 06-08-2024 COVID-19 VACCINE (3 - Pfizer series) COVID-19 VACCINE (3 - Pfizer series) [facility] Comment on above: Postponed from 08/06/2021 (Declined at t his time) Start: 04-28-2024 Influenza vaccination Influenza Vaccine (#1) [facility] Comment on above: Postponed from 06/30/2023 (Declined at t his time) Start: 04-15-2024 End: 04-15-2024 Patient encounter procedure 04/15/2024 9:15 PM EDT Office Visit Neurology [address] [place] [address] AMANDA (obstructive sleep apnea) [G47.33] Neurology Comment on above: AMANDA (obstructive sleep apnea) [G47.33] Start: 03-22-2024 End: 03-22-2025 ANTI NEUTRO CYTO AB ANTI NEUTRO CYTO AB Lab Routine Proteinuria, unspecified type Expected: 03/22/2024, Expires: 03/22/2025 [facility] Comment on above: Expected: 03/22/2024, Expires: Start: 03-22-2024 End: 03-22-2025 Basement membrane IgG Ab [Presence] in Serum by Immunofluorescence GBM AB, IGG (IFA) Lab Routine Proteinuria, unspecified type Expected: 03/22/2024, Expires: 03/22/2025 [facility] Comment on above: Expected: 03/22/2024, Expires: Start: 03-22-2024 End: 03-22-2025 C reactive protein [Mass/volume] in Serum or Plasma C-REACTIVE PROTEIN Lab Routine Proteinuria, unspecified type Expected: 03/22/2024, Expires: 03/22/2025 [facility] Comment on above: Expected: 03/22/2024, Expires: Start: 03-22-2024 End: 06-21-2024 CBC panel - Blood by Automated count COMPLETE BLOOD COUNT Lab Routine Proteinuria, unspecified type Expected: 03/22/2024, Expires: 06/21/2024 [facility] Comment on above: Expected: 03/22/2024, Expires: Start: 03-22-2024 End: 03-22-2025 Chronic hepatitis differentiation between hepatitis B and C virus panel - Serum or Plasma HEP REMOTE PANEL BL Lab Routine Proteinuria, unspecified type Expected: 03/22/2024, Expires: 03/22/2025 [facility] Comment on above: Expected: 03/22/2024, Expires: Start: 03-22-2024 End: 03-22-2025 Complement C3 [Mass/volume] in Serum or Plasma C3 COMPLEMENT Lab Routine Proteinuria, unspecified type Expected: 03/22/2024, Expires: 03/22/2025 [facility] Comment on above: Expected: 03/22/2024, Expires: Start: 03-22-2024 End: 03-22-2025 Complement C4 [Mass/volume] in Serum or Plasma C4 COMPLEMENT Lab Routine Proteinuria, unspecified type Expected: 03/22/2024, Expires: 03/22/2025 [facility] Comment on above: Expected: 03/22/2024, Expires: Start: 03-22-2024 End: 03-22-2025 DNA double strand Ab [Units/volume] in Serum by Immunoassay DNA AB DS + CONF BLD Lab Routine Proteinuria, unspecified type Expected: 03/22/2024, Expires: 03/22/2025 [facility] Comment on above: Expected: 03/22/2024, Expires: Start: 03-22-2024 End: 06-21-2024 Hemoglobin A1c in Blood HEMOGLOBIN A1C Lab Routine Proteinuria, unspecified type Expected: 03/22/2024, Expires: 06/21/2024 [facility] Comment on above: Expected: 03/22/2024, Expires: Start: 03-22-2024 End: 03-22-2025 HIV 1+2 Ab [Presence] in Serum or Plasma by Immunoassay HIV 1/2 COMBO WITH REFLEX TO DIFFERENTIATION Lab Routine Proteinuria, unspecified type Expected: 03/22/2024, Expires: 03/22/2025 [facility] Comment on above: Expected: 03/22/2024, Expires: 5 Start: 03-22-2024 End: 06-21-2024 Microalbumin/Creatinine [Mass Ratio] in Urine ALBUMIN/CREATININE RATIO, URINE Lab Routine Proteinuria, unspecified type Expected: 03/22/2024, Expires: 06/21/2024 [facility] Comment on above: Expected: 03/22/2024, Expires: Start: 03-22-2024 End: 06-21-2024 MONOCLONAL PROTEIN, SERUM (BLOOD) MONOCLONAL PROTEIN, SERUM (BLOOD) Lab Routine Proteinuria, unspecified type Expected: 03/22/2024, Expires: 06/21/2024 [facility] Comment on above: Expected: 03/22/2024, Expires: 4 Start: 03-22-2024 End: 03-22-2025 Nuclear Ab [Presence] in Serum by Immunoassay CIRO BLOOD Lab Routine Proteinuria, unspecified type Expected: 03/22/2024, Expires: 03/22/2025 [facility] Comment on above: Expected: 03/22/2024, Expires: 5 Start: 03-22-2024 End: 06-21-2024 PRIMARY MEMBRANEOUS NEPHROPATHY DIAGNOSTIC CASCADE, SER PRIMARY MEMBRANEOUS NEPHROPATHY DIAGNOSTIC CASCADE, SER Lab Routine Proteinuria, unspecified type Expected: 03/22/2024, Expires: 06/21/2024 [facility] Comment on above: Expected: 03/22/2024, Expires: 4 Start: 03-22-2024 End: 06-21-2024 Protein/Creatinine [Mass Ratio] in Urine PROTEIN / CREATININE RATIO Lab Routine Proteinuria, unspecified type Expected: 03/22/2024, Expires: 06/21/2024 [facility] Comment on above: Expected: 03/22/2024, Expires: 4 Start: 03-22-2024 End: 06-21-2024 Renal function 2000 panel - Serum or Plasma RENAL FUNCTION PANEL Lab Routine Proteinuria, unspecified type Expected: 03/22/2024, Expires: 06/21/2024 [facility] Comment on above: Expected: 03/22/2024, Expires: Start: 03-22-2024 End: 06-21-2024 Urinalysis complete panel - Urine URINALYSIS, WITH MICROSCOPIC Lab Routine Proteinuria, unspecified type Expected: 03/22/2024, Expires: 06/21/2024 [facility] Work Phone: Comment on above: Expected: 03/22/2024, Expires: Start: 03-22-2024 End: 03-22-2024 Patient encounter procedure 03/22/2024 8:00 AM EDT Office Visit Kidney Medicine [address] [place] [address] [place] [address] [place] [address] Proteinuria, unspecified type [R80.9] Kidney Medicine Comment on above: Proteinuria, unspecified type [R80.9] Start: 03-21-2024 End: 03-21-2024 Patient encounter procedure 03/21/2024 10:40 AM EDT Appointment Radiology [address] [place] [address] Other specified disorders of kidney and ureter [N28.89] Radiology Comment on above: Other specified disorders of kidney and ureter [N28.89] Start: 03-08-2024 End: 03-08-2024 Patient encounter procedure 03/08/2024 8:15 AM EDT Appointment [facility] [address] [place] [address] MRI KIDNEY WO/W IVCON [facility] Comment on above: MRI KIDNEY WO/W IVCON Start: 02-27-2024 End: 05-28-2024 Testosterone [Mass/volume] in Serum or Plasma TESTOSTERONE, TOTAL Lab Routine Secondary male hypogonadism Expected: 02/27/2024, Expires: 05/28/2024 [facility] Work Phone: Comment on above: Expected: 02/27/2024, Expires: Start: 02-26-2024 End: 05-27-2024 25-hydroxyvitamin D3 [Mass/volume] in Serum or Plasma [facility] Work Phone: Comment on above: Expected: 02/26/2024, Expires: Start: 02-26-2024 End: 05-27-2024 Ferritin [Mass/volume] in Serum or Plasma [facility] Comment on above: Expected: 02/26/2024, Expires: Start: 02-26-2024 End: 05-27-2024 Iron and Iron binding capacity panel - Serum or Plasma [facility] Comment on above: Expected: 02/26/2024, Expires: Start: 02-26-2024 End: 02-26-2024 ambulatory 02/26/2024 11:20 AM EDT [facility] Endocrinology [address] [place] [phone] Sheron Mark MD [address] [place], [place] [id number] BMI 45.0-49.9, adult (HCC) [Z68.42] Endocrinology Comment on above: BMI 45.0-49.9, adult (HCC) [Z68.42] Start: 02-26-2024 End: 02-26-2024 Patient encounter procedure 02/26/2024 9:00 AM EDT Office Visit Neurology [address] [place] [address] Felicia Broussard, HEYDI.LEATHER SORTER [address] [place] [address] AMANDA (obstructive sleep apnea) [G47.33] Neurology Comment on above: AMANDA (obstructive sleep apnea) [G47.33] Start: 02-22-2024 End: 02-22-2024 Patient encounter procedure 02/22/2024 2:30 PM EDT Appointment Radiology [address] [place] [address] Proteinuria, unspecified type [R80.9] Radiology Comment on above: Proteinuria, unspecified type [R80.9] Start: 02-21-2024 End: 02-21-2024 Patient encounter procedure 02/21/2024 1:00 PM EDT Appointment Radiology [address] [place] [address] Soft tissue mass [M79.89]; Upper back pain [M54.9] Radiology Comment on above: Soft tissue mass [M79.89]; Upper back pa in [M54.9] Start: 02-14-2024 End: 05-15-2024 Testosterone [Mass/volume] in Serum or Plasma TESTOSTERONE, TOTAL Lab Routine Secondary male hypogonadism Expected: 02/14/2024, Expires: 05/15/2024 [facility] Work Phone: Comment on above: Expected: 02/14/2024, Expires: Start: 02-09-2024 End: 05-10-2024 CBC W Auto Differential panel - Blood CBC + DIFF Lab Routine Secondary male hypogonadism Medication monitoring encounter Expected: 02/09/2024, Expires: 05/10/2024 [facility] Work Phone: Comment on above: Expected: 02/09/2024, Expires: 4 Start: 02-09-2024 End: 05-10-2024 Comprehensive metabolic 2000 panel - Serum or Plasma COMP METABOLIC PANEL Lab Routine Mixed hyperlipidemia Expected: 02/09/2024, Expires: 05/10/2024 [facility] Work Phone: Comment on above: Expected: 02/09/2024, Expires: Start: 02-09-2024 End: 05-10-2024 Lipid 1996 panel - Serum or Plasma LIPID PANEL BASIC Lab Routine Mixed hyperlipidemia Expected: 02/09/2024, Expires: 05/10/2024 [facility] Work Phone: Comment on above: Expected: 02/09/2024, Expires: 4 Start: 02-09-2024 End: 05-10-2024 PSA/PROSTSPECAG SCRN PSA/PROSTSPECAG SCRN Lab Routine Medication monitoring encounter Screening for prostate cancer Expected: 02/09/2024, Expires: 05/10/2024 [facility] Work Phone: Comment on above: Expected: 02/09/2024, Expires: 4 Start: 02-09-2024 End: 05-10-2024 Testosterone [Mass/volume] in Serum or Plasma TESTOSTERONE TOTAL Lab Routine Secondary male hypogonadism Medication monitoring encounter Expected: 02/09/2024, Expires: 05/10/2024 [facility] Work Phone: Comment on above: Expected: 02/09/2024, Expires: Start: 12-09-2023 ANNUAL PCP TEAM CHRONIC DISEASE VISIT ANNUAL PCP TEAM CHRONIC DISEASE VISIT [facility] Start: 11-16-2023 LIPID SCREEN LIPID SCREEN [facility] Start: 11-16-2023 PROSTATE CANCER SCREENING DISCUSSION PROSTATE CANCER SCREENING DISCUSSION [facility] Start: 10-27-2023 ANNUAL PCP TEAM CHRONIC DISEASE VISIT ANNUAL PCP TEAM CHRONIC DISEASE VISIT [facility] Start: 10-26-2023 HEPATITIS B (3 of 3 - 19+ 3-dose series) HEPATITIS B (3 of 3 - 19+ 3-dose series) [facility] Start: 10-26-2023 Hepatitis B Vaccine (3 of 3 - 19+ 3-dose series) Hepatitis B Vaccine (3 of 3 - 19+ 3-dose series) [facility] Start: 10-21-2023 Hepb vaccine adult 3 dose schedule for im use HEP B VACCINE, 3-DOSE, AGE 20+ YR (ENGERIX-B, RECOMBIVAX HB) Immunization/Injection Routine Need for vaccination Expected: 10/21/2023 (Approximate) [facility] Work Phone: Comment on above: Expected: 10/21/2023 (Approximate) Start: 08-16-2023 End: 10-16-2023 Testosterone [Mass/volume] in Serum or Plasma TESTOSTERONE TOTAL Lab Routine Secondary male hypogonadism Expected: 08/16/2023, Expires: 10/16/2023 [facility] Work Phone: Comment on above: Expected: 08/16/2023, Expires: 3 Start: 07-21-2023 SHINGRIX VACCINE (2 of 2) SHINGRIX VACCINE (2 of 2) [facility] Start: 06-30-2023 Covid-19 Vaccine ( season) Covid-19 Vaccine ( season) [facility] Start: 06-30-2023 Influenza vaccination [facility] Start: 06-08-2023 End: 08-08-2023 CBC W Auto Differential panel - Blood CBC + DIFF Lab Routine Essential hypertension Expected: 06/08/2023, Expires: 08/08/2023 [facility] Work Phone: Comment on above: Expected: 06/08/2023, Expires: 3 Start: 06-08-2023 End: 08-08-2023 Comprehensive metabolic 2000 panel - Serum or Plasma COMP METABOLIC PANEL Lab Routine Essential hypertension Expected: 06/08/2023, Expires: 08/08/2023 [facility] Work Phone: Comment on above: Expected: 06/08/2023, Expires: 3 Start: 06-08-2023 End: 08-08-2023 Lipid 1996 panel - Serum or Plasma LIPID PANEL BASIC Lab Routine Essential hypertension Expected: 06/08/2023, Expires: 08/08/2023 [facility] Work Phone: Comment on above: Expected: 06/08/2023, Expires: 3 Start: 06-08-2023 End: 08-08-2023 Prolactin [Mass/volume] in Serum or Plasma PROLACTIN BLD Lab Routine Elevated prolactin level Expected: 06/08/2023, Expires: 08/08/2023 [facility] Work Phone: Comment on above: Expected: 06/08/2023, Expires: 3 Start: 06-08-2023 End: 08-08-2023 PSA/PROSTSPECAG SCRN PSA/PROSTSPECAG SCRN Lab Routine Screening for prostate cancer Expected: 06/08/2023, Expires: 08/08/2023 [facility] Work Phone: Comment on above: Expected: 06/08/2023, Expires: 3 Start: 06-08-2023 End: 08-08-2023 Testosterone [Mass/volume] in Serum or Plasma TESTOSTERONE TOTAL Lab Routine Secondary male hypogonadism Expected: 06/08/2023, Expires: 08/08/2023 [facility] Work Phone: Comment on above: Expected: 06/08/2023, Expires: 3 Start: 05-24-2023 HEPATITIS B (2 of 3 - 19+ 3-dose series) HEPATITIS B (2 of 3 - 19+ 3-dose series) [facility] Start: 05-24-2023 Hepb vaccine adult 3 dose schedule for im use HEP B VACCINE, 3-DOSE, AGE 20+ YR (ENGERIX-B, RECOMBIVAX HB) Immunization/Injection Routine Need for vaccination Expected: 05/24/2023 (Approximate) [facility] Work Phone: Comment on above: Expected: 05/24/2023 (Approximate) Start: 04-27-2023 ANNUAL PCP TEAM CHRONIC DISEASE VISIT ANNUAL PCP TEAM CHRONIC DISEASE VISIT [facility] Start: 04-27-2023 BP CONTROLLED (<130/80) BP CONTROLLED (<130/80) [facility] Start: 02-24-2023 Adult depression screening assessment DEPRESSION SCREENING [facility] Start: 10-30-2022 DEPRESSION ASSESSMENT DEPRESSION ASSESSMENT [facility] Start: 07-30-2022 Influenza vaccination Influenza Vaccine (#1) [facility] Start: 06-30-2022 Influenza vaccination [facility] Start: 05-19-2022 Adult depression screening assessment DEPRESSION SCREENING [facility] Start: 04-17-2022 Colonoscopy COLONOSCOPY [facility] Start: 04-17-2022 COLORECTAL CANCER SCREENING COLORECTAL CANCER SCREENING [facility] Start: 02-21-2022 End: 04-23-2022 CBC W Auto Differential panel - Blood CBC + DIFF Lab Routine Dizziness Expected: 02/21/2022, Expires: 04/23/2022 [facility] Work Phone: Comment on above: Expected: 02/21/2022, Expires: 2 Start: 02-21-2022 End: 04-23-2022 Comprehensive metabolic 2000 panel - Serum or Plasma COMP METABOLIC PANEL Lab Routine Dizziness Expected: 02/21/2022, Expires: 04/23/2022 [facility] Work Phone: Comment on above: Expected: 02/21/2022, Expires: 2 Start: 02-21-2022 End: 04-23-2022 Hepatitis C virus Ab [Presence] in Serum HEP C AB IA W/CONF SCRN Lab Routine Special screening examination for viral disease Expected: 02/21/2022, Expires: 04/23/2022 [facility] Work Phone: Comment on above: Expected: 02/21/2022, Expires: 2 Start: 02-21-2022 End: 04-23-2022 LIPID PANEL BASIC LIPID PANEL BASIC Lab Routine Screening for hyperlipidemia Expected: 02/21/2022, Expires: 04/23/2022 [facility] Work Phone: Comment on above: Expected: 02/21/2022, Expires: 2 Start: 02-21-2022 End: 04-23-2022 Prolactin [Mass/volume] in Serum or Plasma PROLACTIN BLD Lab Routine Elevated prolactin level Expected: 02/21/2022, Expires: 04/23/2022 [facility] Work Phone: Comment on above: Expected: 02/21/2022, Expires: 2 Start: 02-21-2022 End: 04-23-2022 PSA/PROSTSPECAG SCRN PSA/PROSTSPECAG SCRN Lab Routine Benign prostatic hyperplasia with lower urinary tract symptoms, symptom details unspecified Expected: 02/21/2022, Expires: 04/23/2022 [facility] Work Phone: Comment on above: Expected: 02/21/2022, Expires: 2 Start: 02-21-2022 End: 04-23-2022 TESTOSTERONE, FREE AND TOTAL TESTOSTERONE, FREE AND TOTAL Lab Routine Elevated prolactin level Expected: 02/21/2022, Expires: 04/23/2022 [facility] Work Phone: Comment on above: Expected: 02/21/2022, Expires: 2 Start: 02-21-2022 End: 04-23-2022 Thyrotropin [Units/volume] in Serum or Plasma TSH BLD Lab Routine Dizziness Expected: 02/21/2022, Expires: 04/23/2022 [facility] Work Phone: Comment on above: Expected: 02/21/2022, Expires: 2 Start: 02-21-2022 End: 04-23-2022 VITAMIN B12 BLOOD VITAMIN B12 BLOOD Lab Routine Facial numbness Expected: 02/21/2022, Expires: 04/23/2022 [facility] Work Phone: Comment on above: Expected: 02/21/2022, Expires: 2 Start: 11-11-2021 COVID-19 VACCINE (3 - Booster for Pfizer series) COVID-19 VACCINE (3 - Booster for Pfizer series) [facility] Start: 10-30-2021 DEPRESSION ASSESSMENT DEPRESSION ASSESSMENT [facility] Start: 08-06-2021 COVID-19 VACCINE (3 - Booster for Pfizer series) COVID-19 VACCINE (3 - Booster for Pfizer series) [facility] Start: 08-06-2021 COVID-19 VACCINE (3 - Pfizer series) COVID-19 VACCINE (3 - Pfizer series) [facility] Start: 05-30-2021 Influenza vaccination Influenza Vaccine (#1) [facility] Start: 07-30-2020 Influenza vaccination Influenza Vaccine (#1) [facility] Start: 2015 Measurement of occult blood in single stool specimen FIT [facility] Start: 2015 Pneumococcal Vaccine: 50+ (1 of 1 - PCV) Pneumococcal Vaccine: 50+ (1 of 1 - PCV) [facility] Start: 2015 Screening for malignant neoplasm of colon CRC Screening [facility] Start: 2015 SHINGRIX VACCINE (1 of 2) SHINGRIX VACCINE (1 of 2) [facility] Start: 2015 Varicella-zoster vaccine (product) Shingles (RZV) Vaccine (1 of 2) [facility] Start: 03-07-2015 FECAL OCCULT BLOOD FECAL OCCULT BLOOD [facility] Start: 03-07-2015 Screening for malignant neoplasm of colon Fecal Occult Blood [facility] Start: 2010 COLOGUARD (FIT-DNA) COLOGUARD (FIT-DNA) [facility] Start: [address] COLONOGRAPHY [facility] Start: 2010 Screening for malignant neoplasm [facility] Start: 2010 SIGMOIDOSCOPY SIGMOIDOSCOPY [facility] Start: 2000 Cholesterol [Mass/Vol] Cholesterol [facility] Start: 2000 Lipid panel Cholesterol [facility] Start: 1984 Hepatitis A (HAV) Vaccine (optional start 19+ years) Hepatitis A (HAV) Vaccine (optional start 19+ years) [facility] Start: 1984 Tetanus vaccination [facility] Start: 1983 BP CONTROLLED (<130/80) BP CONTROLLED (<130/80) [facility] Start: 1983 Hepatitis C antibody, confirmatory test Hepatitis C Antibody [facility] Start: 1983 Hepatitis C screening Hepatitis C Antibody [facility] Start: 1983 HEPATITIS C SCREENING HEPATITIS C SCREENING [facility] Start: 1983 Tetanus + diphtheria + acellular pertussis vaccine (product) Tdap Booster [facility] Start: 1980 HIV screening HIV Test [facility] Start: 1970 COVID-19 Vaccine (1) COVID-19 Vaccine (1) [facility] Start: 06-14-1966 COVID-19 Vaccine (#1) COVID-19 Vaccine (#1) [facility] Start: 1965 Colonoscopy Colonoscopy [facility] Start: 1965 HEPATITIS B (1 of 3 - 3-dose series) HEPATITIS B (1 of 3 - 3-dose series) [facility] Start: 1965 Hepatitis B vaccination Hepatitis B (HBV) Vaccine (1 of 3 - 3-dose series) [facility] Start: 1965 Screening for malignant neoplasm of colon Colonoscopy [facility] End: 05-20-2026 CBC panel - Blood by Automated count COMPLETE BLOOD COUNT Lab Routine Proteinuria, unspecified type Every 6 months for 4 Occurrences starting 05/20/2025 until 05/20/2026 [facility] Work Phone: Comment on above: Every 6 months for 4 Occurrences startin g 05/20/2025 until 05/20/2026 COVID & INFLUENZA A/ B & RSV PCR, ROUTINE COVID & INFLUENZA A/B & RSV PCR, ROUTINE Microbiology Routine Acute cough Bronchitis 07/17/2024 2:26 PM EDT [facility] Work Phone: End: 08-22-2025 CT Chest W contrast IV CT CHEST W IVCON Radiology Routine COVID-19 Acute respiratory failure with hypoxia (HCC) 1 Occurrences starting 07/23/2024 until 08/22/2025 [facility] Work Phone: Comment on above: 1 Occurrences starting 07/23/2024 until 08/22/2025 CT Chest W contrast IV CT CHEST W IVCON Radiology Routine COVID-19 Acute respiratory failure with hypoxia (HCC) 07/30/2024 2:06 PM EDT [facility] Work Phone: End: 02-21-2023 ECG COMPLETE ECG COMPLETE ECG Routine Facial numbness 1 Occurrences starting 02/21/2022 until 02/21/2023 [facility] Work Phone: Comment on above: 1 Occurrences starting 02/21/2022 until 02/21/2023 ECG COMPLETE ECG COMPLETE ECG Routine 10/03/2024 11:05 AM EST [facility] Hepb vaccine adult 3 dose schedule for im use HEP B VACCINE, 3-DOSE, AGE 20+ YR (ENGERIX-B, RECOMBIVAX HB) Immunization/Injection Routine Need for vaccination Ordered: 04/24/2023 [facility] Work Phone: Comment on above: Ordered: 04/24/2023 End: 03-24-2025 MR Kidney WO and W contrast IV MRI KIDNEY WO/W IVCON Radiology Routine Other specified disorders of kidney and ureter 1 Occurrences starting 02/23/2024 until 03/24/2025 [facility] Work Phone: Comment on above: 1 Occurrences starting 02/23/2024 until 03/24/2025 MR Kidney WO and W contrast IV MRI KIDNEY WO/W IVCON Radiology Routine Other specified disorders of kidney and ureter 03/08/2024 9:02 AM EDT [facility] Work Phone: End: 03-14-2025 MR Lumbar spine WO and W contrast IV MRI LUMBAR SPINE WO/W IVCON Radiology Routine Soft tissue mass 1 Occurrences starting 02/13/2024 until 03/14/2025 [facility] Work Phone: Comment on above: 1 Occurrences starting 02/13/2024 until 03/14/2025 End: 03-14-2025 MR Thoracic spine WO and W contrast IV MRI THORACIC SPINE WO/W IVCON Radiology Routine Soft tissue mass Upper back pain 1 Occurrences starting 02/13/2024 until 03/14/2025 [facility] Work Phone: Comment on above: 1 Occurrences starting 02/13/2024 until 03/14/2025 End: 11-02-2025 NM Heart Perfusion W stress and W radionuclide IV NM CARDIAC PERF STRESS/PHARM Radiology Routine Coronary artery calcification Other chest pain 1 Occurrences starting 10/03/2024 until 11/02/2025 [facility] Work Phone: Comment on above: 1 Occurrences starting 10/03/2024 until 11/02/2025 End: 07-07-2024 PAP TITRATION PSG (CPAP, BIPAP, ASV) PAP TITRATION PSG (CPAP, BIPAP, ASV) Procedures Routine AMANDA (obstructive sleep apnea) 1 Occurrences starting 06/08/2023 until 07/07/2024 [facility] Work Phone: Comment on above: 1 Occurrences starting 06/08/2023 until 07/07/2024 Patient Education [facility] Work Phone: Patient referral [facility] Work Phone: End: 02-25-2025 Polysomnogram POLYSOMNOGRAM (PSG) Procedures Routine AMANDA (obstructive sleep apnea) RLS (restless legs syndrome) Chronic insomnia Frequent nocturnal awakening 1 Occurrences starting 02/26/2024 until 02/25/2025 [facility] Comment on above: 1 Occurrences starting 02/26/2024 until 02/25/2025 End: 03-22-2025 Protein/Creatinine [Mass Ratio] in Urine PROTEIN / CREATININE RATIO Lab Routine Proteinuria, unspecified type Every 3 months for 8 Occurrences starting 03/22/2024 until 03/22/2025 [facility] Comment on above: Every 3 months for 8 Occurrences startin g 03/22/2024 until 03/22/2025 End: 05-20-2026 Protein/Creatinine [Mass Ratio] in Urine PROTEIN / CREATININE RATIO Lab Routine Proteinuria, unspecified type Every 6 months for 4 Occurrences starting 05/20/2025 until 05/20/2026 [facility] Comment on above: Every 6 months for 4 Occurrences startin g 05/20/2025 until 05/20/2026 End: 01-15-2024 Radiologic exam esophagus single contrast study XR ESOPHAGRAM Radiology Routine Pharyngeal dysphagia 1 Occurrences starting 12/16/2022 until 01/15/2024 [facility] Work Phone: Comment on above: 1 Occurrences starting 12/16/2022 until 01/15/2024 End: 02-09-2024 Radiologic exam swallow function contrast study XR MODIFIED BARIUM SWALLOW W SPEECH THERAPY Radiology Routine Dysphagia, unspecified type 1 Occurrences starting 01/10/2023 until 02/09/2024 [facility] Work Phone: Comment on above: 1 Occurrences starting 01/10/2023 until 02/09/2024 End: 03-22-2025 Renal function 2000 panel - Serum or Plasma RENAL FUNCTION PANEL Lab Routine Proteinuria, unspecified type Every 3 months for 8 Occurrences starting 03/22/2024 until 03/22/2025 [facility] Comment on above: Every 3 months for 8 Occurrences startin g 03/22/2024 until 03/22/2025 End: 05-20-2026 Renal function 1999 panel - Serum or Plasma RENAL FUNCTION PANEL Lab Routine Proteinuria, unspecified type Every 6 months for 4 Occurrences starting 05/20/2025 until 05/20/2026 [facility] Comment on above: Every 6 months for 4 Occurrences startin g 05/20/2025 until 05/20/2026 SPIROMETRY WITH DILA TOR IF OBSTRUCTED SPIROMETRY WITH DILATOR IF OBSTRUCTED PFT Routine Moderate persistent reactive airway disease with wheezing without complication 08/15/2024 7:37 AM EDT [facility] Work Phone: SURGICAL PATHOLOGY [facility] Work Phone: Comment on above: Release Upon Ordering for 1 Occurrences starting 01/18/2023, 1 completed Tissue Pathology bio psy report [facility] Work Phone: Tissue Pathology bio psy report SURGICAL PATHOLOGY Lab Routine Pigmented skin lesion of uncertain behavior of torso Ordered: 06/23/2025 [facility] Work Phone: Comment on above: Ordered: 06/23/2025 End: 05-20-2026 Urinalysis complete panel - Urine URINALYSIS, WITH MICROSCOPIC Lab Routine Proteinuria, unspecified type Every 6 months for 4 Occurrences starting 05/20/2025 until 05/20/2026 [facility] Comment on above: Every 6 months for 4 Occurrences startin g 05/20/2025 until 05/20/2026 End: 02-21-2023 US CAROTID ARTERIES NAE VAS LAB US CAROTID ARTERIES NAE VAS LAB Vascular Lab Routine Dizziness Facial numbness 1 Occurrences starting 02/21/2022 until 02/21/2023 [facility] Work Phone: Comment on above: 1 Occurrences starting 02/21/2022 until 02/21/2023 End: 03-17-2025 US Kidney - bilateral and Urinary bladder US KIDNEY/BLADDER Radiology Routine Proteinuria, unspecified type 1 Occurrences starting 02/16/2024 until 03/17/2025 [facility] Work Phone: Comment on above: 1 Occurrences starting 02/16/2024 until 03/17/2025 US Kidney - bilatera l and Urinary bladder US KIDNEY/BLADDER Radiology Routine Proteinuria, unspecified type 02/22/2024 2:42 PM EDT [facility] Work Phone: End: 08-19-2023 XR HIP 2V AP/LAT LEFT (AK,FL,ME) XR HIP 2V AP/LAT LEFT (AK,FL,ME) Radiology Routine Pain in left hip 1 Occurrences starting 07/21/2022 until 08/19/2023 [facility] Work Phone: Comment on above: 1 Occurrences starting 07/21/2022 until 08/19/2023 [facility] Immunizations Immunization Date Immunization Notes Care Provider Fa cili 12-18-2024 pneumococcal conjugate (PCV20) vaccine, 20 valent (PREVNAR 20) Myah Arteaga MD Work Phone: [facility] 12-18-2024 pneumococcal Conjugate, unspecified formulation Myah Arteaga MD Work Phone: [facility] 07-18-2024 influenza, seasonal, injectable, preservative free Myah Arteaga MD Work Phone: [facility] 07-18-2024 influenza virus vaccine, unspecified formulation Tara Hilliard APRN.LEATHER SORTER Work Phone: [facility] 12-11-2023 COVID-19 vaccine, ag e 12+ yr, season (Alexis Bittar-[employer]Bridge[employer]Streak) Myah Arteaga MD Work Phone: [facility] 10-26-2023 hepatitis B vaccine, adult dosage Myah Arteaga MD Work Phone: [facility] 10-26-2023 influenza, injectable, quadrivalent, contains preservative Myah Arteaga MD Work Phone: [facility] 10-26-2023 zoster vaccine recombinant Myah Arteaga MD Work Phone: [facility] 10-26-2023 influenza virus vaccine, unspecified formulation Sheron Mark MD Work Phone: [facility] 05-26-2023 hepatitis B vaccine, adult dosage Wa Nurse Work Phone: [facility] Work Phone: 05-26-2023 zoster vaccine recombinant Mi Nurse Work Phone: [facility] Work Phone: 05-26-2023 hepatitis B vaccine, unspecified formulation Wa Nurse Work Phone: [facility] 04-26-2023 hepatitis B vaccine, adult dosage Mi Nurse Work Phone: [facility] Work Phone: 04-26-2023 hepatitis B vaccine, unspecified formulation Wa Nurse Work Phone: [facility] 04-15-2023 tetanus toxoid, reduced diphtheria toxoid, and acellular pertussis vaccine, adsorbed [facility] 02-02-2021 tetanus toxoid, reduced diphtheria toxoid, and acellular pertussis vaccine, adsorbed Hesham Grater SHIFT BOSS.LEATHER SORTER Work Phone: [facility] 07-26-2019 Influenza, injectable, Madin Lesia Canine Kidney, preservative free, quadrivalent Cynthia Varner MD Work Phone: [facility] 07-26-2019 influenza virus vaccine, unspecified formulation Myah Arteaga MD Work Phone: [facility] 08-01-2016 influenza, injectable, quadrivalent, contains preservative Hesham Grater SHIFT BOSS.LEATHER SORTER Work Phone: [facility] 07-02-2016 tetanus toxoid, reduced diphtheria toxoid, and acellular pertussis vaccine, adsorbed Hesham Grater SHIFT BOSS.LEATHER SORTER Work Phone: [facility] 10-22-2015 influenza, injectable, quadrivalent, contains preservative Hesham Grater SHIFT BOSS.LEATHER SORTER Work Phone: [facility] 10-08-2014 influenza, seasonal, injectable Hesham Grater SHIFT BOSS.LEATHER SORTER Work Phone: [facility] 08-31-2012 influenza virus vaccine, unspecified formulation Hesham Grater SHIFT BOSS.LEATHER SORTER Work Phone: [facility] 09-12-2011 influenza virus vaccine, unspecified formulation Hesham Grater SHIFT BOSS.LEATHER SORTER Work Phone: [facility] 09-12-2011 tetanus toxoid, reduced diphtheria toxoid, and acellular pertussis vaccine, adsorbed Hesham Grater SHIFT BOSS.LEATHER SORTER Work Phone: [facility] NEGATED: Highlighted row has not occurred!12-06-2021 COVID-19 vaccine, age 12+ yr (PFIZER-BIONTStreak - DE ANDA TOP) Hesham Koch SHIFT BOSS.LEATHER SORTER Work Phone: [facility] Comment on above: Deferred: - not deli rochelle Payers Date Payer Category Payer Self-pay [id number] 2019 Private Health Insurance [facility] CHOICE PLUS [id number] 2019-Present [phone] [address] [place] [address] HMO [id number] 2019 Private Health Insurance [id number] 2016 Unknown [id number] 2011 Unknown PSYCH GENERIC BH GENERIC [id number] 2011-Present [phone] [place] [address] Indemnity [id number] 1989 Unknown [id number] 1989 Worker's Compensation [id number] 1989 Worker's Compensation WORKER'S C PURA SALDIVAR COUNTS INCLUDE 234 BEDS AT THE [facility] PLUS [id number] 1989-Present [phone] [address] [place] [address] Worker's Comp [id number] 1989 Unknown [id number] Unknown [id number] Unknown [id number] Unknown [id number] Unknown [id number] Social History Date Type Detail Facility Tobacco smoking stat [facility] Unknown if ever smoked [facility] Start: 1965 Sex Assigned At Male [facility] Start: 02-21-2022 End: 04-15-2023 Tobacco smoking status NVIS Tobacco smoking consumption unknown [facility] Start: 09-30-2011 End: 06-09-2022 Tobacco smoking status [facility] Never smoked tobacco [facility] Start: 12-03-2021 End: 07-02-2025 Alcohol intake Current drinker of alcohol (finding) [facility] Start: 12-03-2021 End: 04-26-2023 Alcohol intake [facility] Start: 06-18-2020 End: 10-27-2022 History SDOH Alcohol Frequency 2 [facility] Start: 06-11-2020 End: 06-18-2020 History SDOH Alcohol Std Drinks 1 [facility] Start: 06-11-2020 End: 03-14-2022 History SDOH Social Connections Phone 5 [facility] Start: 06-11-2020 End: 10-27-2022 History SDOH Social Connections Living 3 [facility] Start: 06-18-2020 End: 10-27-2022 History SDOH Financial 4 [facility] Start: 06-11-2020 Education 15 [facility] Start: 04-19-2021 End: 08-04-2022 Exposure to SARS-CoV-2 (event) Not sure [facility] Start: 07-26-2019 None [facility] Start: 02-02-2021 Non-smoker [facility] Start: 03-14-2022 History SDOH Alcohol Std Drinks 98 [facility] Start: 09-30-2011 End: 06-09-2022 Tobacco use and exposure Smokeless tobacco non-user [facility] Start: 10-27-2022 History SDCT Physical Activity DPW 0 [facility] Start: 10-27-2022 End: 04-26-2023 Social connection and isolation panel [facility] Do you belong to any clubs or organizations such as gnosticist groups, unions, fraternal or athletic groups, or school groups? No [facility] Are you now , , , , never or living with a partner? [facility] How often to you hav e a drink containing alcohol? Monthly or less [facility] How many standard dr inks containing alcohol do you have on a typical day? 1 or 2 [facility] How often do you hav e 6 or more drinks on 1 occasion? Less than monthly [facility] How hard is it for y ou to pay for the very basics like food, housing, medical care, and heating Not very hard [facility] Start: 09-30-2012 Adult Depression Screening Assessment 6 [facility] Do you feel stress - tense, restless, nervous, or anxious, or unable to sleep at night because your mind is troubled all the time - these days [OSQ] Rather much [facility] (I/We) worried marshal er (my/our) food would run out before (I/we) got money to buy more. Never true [facility] Start: 07-29-2019 Gender identity Identifies as male gender (finding) [facility] Start: 07-29-2019 Sexual orientation Heterosexual (finding) [facility] Do you feel stress - tense, restless, nervous, or anxious, or unable to sleep at night because your mind is troubled all the time - these days [OSQ] Very much [facility] How hard is it for y ou to pay for the very basics like food, housing, medical care, and heating Somewhat hard [facility] The food that (I/we) bought just didn't last, and (I/we) didn't have money to get more. Sometimes true [facility] How often do you hav e 6 or more drinks on 1 occasion? Never [facility] Do you feel stress - tense, restless, nervous, or anxious, or unable to sleep at night because your mind is troubled all the time - these days [OSQ] To some extent [facility] Medical Equipment Procedure Code Equipment Code Equipment Origin al Text Equipment Identifier Dates G7 Vivacit-E Ncp a Liner Std 36mm Size F [id number] Start: 12-03-2021 Biolox Delta Mod ular Ceramic Head 36mm W/3mm Neck Type 1 Taper [id number] Start: 12-03-2021 Shell G7 56mm F Offset Hemisphere Osseoti Acetabular 4 Hole Limit Hip - [id number] Start: 12-03-2021 Stem Taperloc 13 3d 12 Standard Offset Taper Pps 144mm Femoral Type 1 Full - [id number] Start: 12-03-2021 Screw G7 6.5mm D ome 25mm Acetabular Low Profile - [id number] Start: 12-03-2021 Functional Status Date Assessment Result Facility 12-18-2024 Total score [AUDIT-C] 2 12/18/19 8:43 AM EST User, Richard [facility] 12-18-2024 Within the last year , have you been humiliated or emotionally abused in other ways by your partner or ex-partner? No 12/18/2024 8:43 AM EST User, [email or web address] No [facility] 12-18-2024 Within the last year , have you been afraid of your partner or ex-partner? No 12/18/2024 8:43 AM EST User, [email or web address] No [facility] 12-18-2024 Within the last year , have you been raped or forced to have any kind of sexual activity by your partner or ex-partner? No 12/18/2024 8:43 AM EST User, [email or web address] No [facility] 12-18-2024 Within the last year , have you been kicked, hit, slapped, or otherwise physically hurt by your partner or ex-partner? No 12/18/2024 8:43 AM EST User, [email or web address] No [facility] 12-18-2024 How often to you hav e a drink containing alcohol? Monthly or less 12/18/2024 8:43 AM EST User, [email or web address] Monthly or less [facility] 12-18-[address] inks containing alcohol do you have on a typical day? 1 or 2 12/18/2024 8:43 AM EST User, [email or web address] 1 or 2 [facility] 12-18-2024 How often do you hav e 6 or more drinks on 1 occasion? Less than monthly 12/18/2024 8:43 AM EST Richard Manzo Less than monthly [facility] 12-06-2021 Are you deaf, or do you have serious difficulty hearing No 12/06/2021 5:15 PM Kinga Fletcher, BRIAN No [facility] 12-06-2021 Are you blind, or do you have serious difficulty seeing, even when wearing glasses No 12/06/2021 5:15 PM Kinga Fletcher, BRIAN No [facility] 12-06-2021 Do you have serious difficulty walking or climbing stairs No 12/06/2021 5:15 PM Kinga Fletcher, BRIAN No [facility] 12-06-2021 Do you have difficul ty dressing or bathing No 12/06/2021 5:15 PM Kinga Fletcher, BRIAN No [facility] 12-06-2021 Because of a physica l, mental, or emotional condition, do you have difficulty doing errands alone such as visiting a physician's office or shopping No 12/06/2021 5:15 PM Kinga Fletcher, BRIAN No [facility] Mental Status Date Assessment Result Facility 02-21-2022 Cognitive function Voice/Name [facility] Work Phone: 12-06-2021 Because of a physica l, mental, or emotional condition, do you have serious difficulty concentrating, remembering, or making decisions No 12/06/2021 5:15 PM Kinga Fletcher RN No [facility] Clinical Notes 07-31-2017 to 09-09-2025 Telephone Encounter - Daria De La Garza - 07/16/2025 1:09 PM EDTTelephone Encounter - Daria De La Garza - 07/16/2025 1:09 PM EDTTelephone Encounter - Cleo Mooney RN - 07/10/2025 8:44 AM EDT Note Date & Type Note Facility 09-09-2025 Note HNO ID: [id number] Author: SHARLA GAMEZ MD Service: ? Author Type: Physician Type: Progress Notes Filed: 09/09/2025 10:58 Note Text: Spine Care Path Low Back Pain - Chronic (> 12 weeks) Initial Visit/Exam DISTANCE HEALTH VISIT This Team Access Model visit is a virtual encounter. It required patient-provider interaction for the medical decision making as documented below. Vic Ballesteros has consented to this telephone and/or video encounter (Animating Touchom) I have communicated my name and active licensure. The patient's identity and physical location were verified at the time of this visit. Either the patient or their legal auto claim representative has been informed of the risks and benefits of -- and alternatives to -- treatment through a remote evaluation and consents to proceed with the evaluation remotely. Recording using [employer] software for draft documentation of the visit was discussed with the patient/authorized auto claim representative; all questions welcomed and answered. Patient/authorized auto claim representative agreed to proceed Vic Ballesteros is a 59 year old male who presents with a chief complaint of low back pain and is seen in consultation requested by Dr. Sheron Mark for an opinion regarding low back pain. My final recommendations will be communicated back to the requesting physician by way of shared medical record or letter via US mail. 59-year-old male presents today for evaluation for low back pain, leg weakness right side since 1988. He reports he had a fall from 3 stories in 1988 and sustained nerve damage. He reports he had pelvic fractures and was also told that he had L5 and S1 nerve issues at the time. No surgical intervention was taken. Today he indicates right buttock to right posterior thigh and leg pain. He has associated right foot weakness with foot drop. He wears an AFO. 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 Saw neurologist in [place] who deemed this non-cancerous. However this has not been fully evaluated. Pain management at [facility]. Getting caudal lumbar epidural injections last one last month. They do help. Taking Tramadol, Clonapin. Did PT at [facility] at [facility]. 6 months ago. Patient Entered Questionnaires 09/09/2025 Spine Questions Pain Location: Leg Pain Duration: More than 5 years Pain over last 6 months: Every day or nearly every day in the past 6 months Symptoms from neck/cervical spine: No Employment Status: Disabled due to back pain, permanently or temporarily Off work 1 month or more due to back/neck pain: Does not apply Applied for/receive disability/WC due to low back/neck pain Yes Involved in law suit/legal claim: No 09/09/2025 Spine Red Flags Any type of cancer: No Unexplained fever: No Bowel or bladder disfunction: Yes Unintentional weight loss: No Osteoporosis: No PROMIS Score Percentiles 02/24/2022 02/25/2024 09/09/2025 Physical Health Physical Function Percentile 4 4 Sleep Percentile 12 2 10 Fatigue Percentile 8 3 Pain Interference Percentile 4 4 02/24/2022 09/09/2025 PROMIS SOCIAL ROLE SCORE Social Role Satisfaction Percentile 14 10 04/29/2025 06/17/2025 09/09/2025 PROMIS Global Health Scale Physical Health Percentile 7 15 7 Mental Health Percentile 9 13 5 Percentiles provide an indication of how the patient's score ranks in relation to the general population. Higher percentile rankings indicate better function/quality of life. 50th percentile is the average of the general population and indicates half of respondents had a worse score. Depression Screenin04/29/2025 06/17/2025 09/09/2025 PHQ-9 Score 11 10 10 04/29/2025 06/17/2025 09/09/2025 PHQ-9 Self-harm Question Question 9 Not at all Not at all Not at all PHQ-9 Self-Harm (Item 9) response options: 0 Not at all 1 Several days 2 More than half the days 3 Nearly every day PHQ-9 Levels: 0-4 No - mild depression 5-9 Mild depression 10-14 Moderate depression 15-19 Moderately severe depression 20-27 Severe depression HISTORY REVIEWED (electronic chart updated): - medical history - medications - allergies Tadalafil (CIALIS) 20 mg tablet TAKE 1 TABLET BY MOUTH 1-2 HOURS BEFORE SEXUAL INTRACOURSE NEEDED testosterone (ANDROGEL) 50 mg / 5 g (1%) Apply 1 packet to affected area every other day. Alternating with 25 mg. tirzepatide, weight loss (ZEPBOUND) 2.5 mg/0.5 mL solution Inject 0.5 mL subcutaneously one time a week for 28 days. aspirin, enteric coated (ECOTRIN LOW STRENGTH) 81 mg EC tablet Take 1 tablet by mouth once daily. atorvastatin (LIPITOR) 10 mg tablet Take 1 tablet by mouth once daily. losartan (COZAAR) 50 mg tablet Take 1 tablet by mouth once daily. pantoprazole DR (PROTONIX) 40 mg tablet TAKE 1 TABLET BY MOUTH DAILY testosterone (ANDROGEL) 25 mg/ 2.5g (1%) Apply 1 packet to (more content not included)... [facility] 08-12-2025 Note HNO ID: [id number] Author: KATHY WALLACE, [employer]cre[employer] Operator Service: ? Author Type: [employer] Aircrew[employer] Operator Type: Progress Notes Filed: 08/12/2025 13:16 Note Text: Virtual Visit (Audio/Visual)I have discussed the nature of this visit with the patient which will occur via myJambi (Phone, Virtual Visit) and he agrees to proceed with this interaction. He is currently exercising. Nerve injury in R leg. Impacting his ability to exercise. Walking on the TM and FW. He would like to think it over Based on the ACSM's Guidelines for Exercise Testing AND Prescription, the patient will not require a stress test prior to receiving an exercise prescription. [facility] 08-05-2025 Note HNO ID: [id number] Author: MANISH SANTOS RT(R) Service: ? Author Type: Policy And Planning Manager Type: Progress Notes Filed: 08/05/2025 16:11 Note Text: Radiology Service Progress Note PATIENT NAME: Vic Ballesteros DATE OF SERVICE: August 05, 2025 TIME: 4:10 PM PATIENT IDENTITY VERIFICATION COMPLETED USING TWO (2) IDENTIFIERS: Name and Date of confirmed by patient verbally. FALL SCREENING: Has the patient had 2 falls in the last year or 1 fall with injury or currently using an Ambulatory Assistive Device (Walker, Cane, Wheelchair, Crutches, etc.)? No PATIENT GENDER DATA: Assigned male at PATIENT RELEVANT IMPLANT DATA REVIEWED: Not Applicable PATIENT PRESENTS WITH AN IMPLANTABLE OR ATTACHED LANDSCAPING SUPERVISOR: No RADIOLOGY DEPARTMENT: CT; Exam(s) Completed: Chest. Anesthesia: No PERIPHERAL IV DATA: Not applicable SIGNED BY: JASPAL Bardales) August 05, 2025 4:10 PM [facility] 07-16-2025 Telephone encounter Note Initiated PA for tirzepatide, weight loss (ZEPBOUND) 2.5 mg/0.5 mL solution ZEPBOUND through [employer] Waiting on Questions Questions Completed Waiting for determination [facility] 07-16-2025 Miscellaneous Notes Initiated PA for tirzepatide, weight loss (ZEPBOUND) 2.5 mg/0.5 mL solution ZEPBOUND through [employer] Waiting on Questions Questions Completed Waiting for determination documented in this encounter [facility] 07-10-2025 Telephone encounter Note PA initiated in Epic, questions answered in Epic and chart notes sent; PA currently pending [facility] 07-10-2025 Miscellaneous Notes PA initiated in Epic, questions answered in Epic and chart notes sent; PA currently pending documented in this encounter [facility] 07-08-2025 Telephone encounter Note PA completed with pts insurance for both doses of testosterone doses 25mg and 50mg and this is drug class is excluded. But previously was covered with [facility]. [facility] 07-08-2025 Miscellaneous Notes PA completed with pts insurance for both doses of testosterone doses 25mg and 50mg and this is drug class is excluded. But previously was covered with [facility]. documented in this encounter [facility] 07-03-2025 Telephone encounter Note Pt called and is notified of providers results, question, and instructions. Pt voices understanding. He states there may have been some days he forgot to take the testosterone. He said he is going to try and start taking it regularly again, because it works better. Jake Garrido RN [facility] 07-03-2025 Miscellaneous Notes Pt called and is notified of providers results, question, and instructions. Pt voices understanding. He states there may have been some days he forgot to take the testosterone. He said he is going to try and start taking it regularly again, because it works better. Jake Garrido RN Testosterone level was renewed low. It looks like it has been fluctuating. Have you missed any doses. Blood counts and PSA are normal. Cholesterol levels look okay. HDL is a little low. Please consider adding to your diet whole grains, purple grape juice, nuts or peanut butter. These things will increase your HDL and protection against heart disease. The patient has been identified by name and date of : Yes Caregiver verified no other encounters exist for this prescription request: Yes Caregiver confirmed with patient/requestor that no other refills are due, in the near future, with this provider at this time: Yes The last office visit in the department: 06/17/2025 Does the patient have a future office visit with this provider/department: Yes 12/19/2025 Requested Prescriptions Pending Prescriptions Disp Refills testosterone (ANDROGEL) 50 mg / 5 g (1%) 30 packet 0 Sig: Apply 1 packet to affected area every other day. Alternating with 25 mg. Jake Garrido RN July 03, 2025 1:45 PM documented in this encounter [facility] 07-03-2025 Telephone encounter Note Testosterone level was renewed low. It looks like it has been fluctuating. Have you missed any doses. Blood counts and PSA are normal. Cholesterol levels look okay. HDL is a little low. Please consider adding to your diet whole grains, purple grape juice, nuts or peanut butter. These things will increase your HDL and protection against heart disease. [facility] 07-03-2025 Telephone encounter Note The patient has been identified by name and date of : Yes Caregiver verified no other encounters exist for this prescription request: Yes Caregiver confirmed with patient/requestor that no other refills are due, in the near future, with this provider at this time: Yes The last office visit in the department: 06/17/2025 Does the patient have a future office visit with this provider/department: Yes 12/19/2025 Requested Prescriptions Pending Prescriptions Disp Refills testosterone (ANDROGEL) 50 mg / 5 g (1%) 30 packet 0 Sig: Apply 1 packet to affected area every other day. Alternating with 25 mg. Jake Garrido RN July 03, 2025 1:45 PM [facility] 07-02-2025 Instructions Sheron Mark MD - 07/02/2025 2:15 PM EDT WEIGHT MANAGEMENT PROGRAM Thank you for seeing me in Clinic Today. Please schedule your follow-up appointment: -- Call Center: [phone] or [phone] Please call this number to make your follow up appointment. If you are on [facility] medications that must be filled by a certain date, please notify person at the Call Center to ensure that you are scheduled within the required timeframe. -- Dietitian: [phone] Please call this number to make your appointment. -- Exercise Physiology: To schedule a Free Exercise Consult to learn about our Exercise Physiology services please schedule through [facility] Ticket Scheduling. For ticket scheduling in [employer], go to Your Menu > Scheduling Tickets, and click on Schedule icon to schedule your appointment. -- Shared medical appointment patient coordinator: [phone] To Cancel an appointment, please choose one of the following: - Call the Appointment Call Center at [phone] or [phone] - From [employer], Go to Appointments - Cancel Appts FOR THE WEIGHT MANAGEMENT TEAM - instructions Use call center number to schedule follow up appointment for weight management when seeing patient virtually Instruct the patient to go to front attendant to schedule follow up appointment Alternatively send a message to [email or web address] to contact the patient and schedule appointment: Bar besomebody. ([phone]) Shared Medical Appointment: send a message directly to [place] to schedule SMA Thank you for choosing the [facility] Department of Endocrinology, Diabetes and Metabolism. -Recommended Exercise goals to patient are Moderate Aerobic Exercise 150 min/wk or Vigorous Aerobic Exercise 75 min/wk for weight loss maintenance and Moderate Aerobic Exercise 300 min/wk or Vigorous Aerobic Exercise 150 min/wk and add resistance exercise x2-3/week for increased weight loss. documented in this encounter [facility] 07-02-2025 Note HNO ID: [id number] Author: SHERON MARK MD Service: ? Author Type: Physician Type: Progress Notes Filed: 07/09/2025 13:39 Note Text: Endocrinology Visit Note that the patient is self-referred. Vic Ballesteros is a 59 year old male seen for medical weight management.Ht-5'4,Wt-263 lbs;BMI-43.8. Briefly, patient states that he was not heavy as a child but his parents were heavy. Patient states that his trigger for weight gain was when he was in an accident. Note that the patient gets steroid shots every 3 months for pain. Patient has tried WW as a diet in the past but currently has reduced exercise due to his history of accident. Patient states that the most weight he has lost in the past is approximately 30-40 pounds in 6 months when he was eating less. Patient states that his eating style is the binging type but denies any cravings. Current regimen None Patient is noted to be on Adderall.He is also noted to be on Wellbutrin as well as Tramadol PRN for pain. Patient also denies a personal or family history of medullary thyroid cancer/MEN syndrome or personal history of pancreatitis. Patient also denies any history of blood clotting disorders. Currently denies any other endocrine related complaints. HISTORY REVIEWED (electronic chart updated): PAST MEDICAL HISTORY Diagnosis Date ACNE NEC 10/13/2006 Anxiety 01/16/2023 Coronary artery calcification 06/17/2025 Depression Dyslipidemia Essential hypertension 01/16/2023 GERD (gastroesophageal reflux disease) 01/16/2023 History of traumatic brain injury Hypogonadism male 10/30/1988 Left knee pain Obesity AMANDA (obstructive sleep apnea) 10/30/2005 cpap PMH - PAST MEDICAL HISTORY OF L 5 nerve injury workman comp PMH - PAST MEDICAL HISTORY OF 10/30/1988 Industrial accident fall Stroke (HCC) Thrombosed external hemorrhoid 10/26/2011 Unspecified site of spinal cord injury without evidence of spinal bone injury 01/25/2013 PAST SURGICAL HISTORY Procedure Laterality Date ABDOMINAL SURGERY HX BX OF BREAST; INCISIONAL 06/23/2025 Pigmented skin lesion of uncertain behavior of torso COLONOSCOPY FLX DX W/COLLJ SPEC WHEN PFRMD 04/17/2012 repeat 10 years COLONOSCOPY SCREENING 06/09/2022 10 year f/u colonoscopy FRACTURE SURGERY JOINT REPLACEMENT HX LAPAROSCOPY SURG CHOLECYSTECTOMY 08/01/2017 Cholecystectomy, lap PAST SURGICAL HISTORY OF Right 1988 wrist fracture after work accident, states still has hardware PAST SURGICAL HISTORY OF 1988 exploratory after accident, opened from pubic bone to breastbone REPAIR NASAL SEPTUM DEFECT RPR 1ST INCAL/VNT HERNIA INCARCERATED 10/28/2019 TOTAL HIP REPLACEMENT Left 2021 VASECTOMY UNI/BI SPX W/POSTOP SEMEN EXAMS Bilateral 1999 FAMILY HISTORY Problem Relation Age of Onset Heart Mother Hypertension Mother Stroke Mother Cancer Father lung, throat other (lymphoma) Sister other (car accident) Sister None Brother None Brother SOCIAL HISTORY[1] Current Outpatient Medications Medication Sig aspirin, enteric coated (ECOTRIN LOW STRENGTH) 81 mg EC tablet Take 1 tablet by mouth once daily. atorvastatin (LIPITOR) 10 mg tablet Take 1 tablet by mouth once daily. testosterone (ANDROGEL) 50 mg / 5 g (1%) Apply 1 packet to affected area every other day. Alternating with 25 mg. losartan (COZAAR) 50 mg tablet Take 1 tablet by mouth once daily. pantoprazole DR (PROTONIX) 40 mg tablet TAKE 1 TABLET BY MOUTH DAILY testosterone (ANDROGEL) 25 mg/ 2.5g (1%) Apply 1 packet to affected area every other day for 180 days. Alernating witth 50 mg qod diclofenac (VOLTAREN) 1 % topical gel APPLY 4 GRAMS TO THE LOWER EXTREMITY JOINT WITH A MAXIMUM OF 16 GRAMS PER DAY lidocaine (LMX) 4 % cream Apply to affected area once daily as needed. lidocaine HCl 2 % crea Apply to affected area once daily as needed. amphetamine-dextroamphetamine XR (ADDERALL XR) 10 mg capsule Take 10 mg by mouth once daily. buPROPion (WELLBUTRIN) 75 mg tablet Take 75 mg by mouth two times a day. budesonide-formoterol (SYMBICORT) 80-4.5 mcg/actuation inhaler Inhale 2 Puffs as instructed two times a day. Tadalafil (CIALIS) 20 mg tablet TAKE 1 TABLET BY MOUTH 1-2 HOURS BEFORE SEXUAL INTRACOURSE NEEDED albuterol HFA (VENTOLIN HFA) 90 mcg/actuation inhaler Inhale 2 Puffs as instructed every 4 hours as needed for wheezing/shortness of breath. acetaminophen (TYLENOL EXTRA STRENGTH) 500 mg tablet Take 2 tablets by mouth every 8 hours as needed for pain. traMADol (ULTRAM) 50 mg tablet albuterol (PROVENTIL) 2.5 mg /3 mL (0.083 %) nebulizer solution Use 3 mL via nebulizer every 6 hours as needed for wheezing/shortness of breath. Use over 5-15minutes. CPAP/BIPAP/OTHER autoCPAP 5-20 cmH2O DME [employer] CPAP Initiate Auto PAP @ 5-20 cm of water with humidification. Mask (per patient preference) optional chin strap (if indicated) , filters, tubing, humidifier and lifetime supplies. (more content not included)... [facility] 07-02-2025 History of Present illness Narrative Endocrinology Visit Note that the patient is self-referred. Vic Ballesteros is a 59 year old male seen for medical weight management.Ht-5'4,Wt-263 lbs;BMI-43.8. Briefly, patient states that he was not heavy as a child but his parents were heavy. Patient states that his trigger for weight gain was when he was in an accident. Note that the patient gets steroid shots every 3 months for pain. Patient has tried WW as a diet in the past but currently has reduced exercise due to his history of accident. Patient states that the most weight he has lost in the past is approximately 30-40 pounds in 6 months when he was eating less. Patient states that his eating style is the binging type but denies any cravings. Current regimen None Patient is noted to be on Adderall.He is also noted to be on Wellbutrin as well as Tramadol PRN for pain. Patient also denies a personal or family history of medullary thyroid cancer/MEN syndrome or personal history of pancreatitis. Patient also denies any history of blood clotting disorders. Currently denies any other endocrine related complaints. HISTORY REVIEWED (electronic chart updated): PAST MEDICAL HISTORY Diagnosis Date ACNE NEC 10/13/2006 Anxiety 01/16/2023 Coronary artery calcification 06/17/2025 Depression Dyslipidemia Essential hypertension 01/16/2023 GERD (gastroesophageal reflux disease) 01/16/2023 History of traumatic brain injury Hypogonadism male 10/30/1988 Left knee pain Obesity AMANDA (obstructive sleep apnea) 10/30/2005 cpap PMH - PAST MEDICAL HISTORY OF L 5 nerve injury workman comp PMH - PAST MEDICAL HISTORY OF 10/30/1988 Industrial accident fall Stroke (HCC) Thrombosed external hemorrhoid 10/26/2011 Unspecified site of spinal cord injury without evidence of spinal bone injury 01/25/2013 PAST SURGICAL HISTORY Procedure Laterality Date ABDOMINAL SURGERY HX BX OF BREAST; INCISIONAL 06/23/2025 Pigmented skin lesion of uncertain behavior of torso COLONOSCOPY FLX DX W/COLLJ SPEC WHEN PFRMD 04/17/2012 repeat 10 years COLONOSCOPY SCREENING 06/09/2022 10 year f/u colonoscopy FRACTURE SURGERY JOINT REPLACEMENT HX LAPAROSCOPY SURG CHOLECYSTECTOMY 08/01/2017 Cholecystectomy, lap PAST SURGICAL HISTORY OF Right 1988 wrist fracture after work accident, states still has hardware PAST SURGICAL HISTORY OF 1988 exploratory after accident, opened from pubic bone to breastbone REPAIR NASAL SEPTUM DEFECT RPR 1ST INCAL/VNT HERNIA INCARCERATED 10/28/2019 TOTAL HIP REPLACEMENT Left 2021 VASECTOMY UNI/BI SPX W/POSTOP SEMEN EXAMS Bilateral 1999 FAMILY HISTORY Problem Relation Age of Onset Heart Mother Hypertension Mother Stroke Mother Cancer Father lung, throat other (lymphoma) Sister other (car accident) Sister None Brother None Brother SOCIAL HISTORY[1] Current Outpatient Medications Medication Sig aspirin, enteric coated (ECOTRIN LOW STRENGTH) 81 mg EC tablet Take 1 tablet by mouth once daily. atorvastatin (LIPITOR) 10 mg tablet Take 1 tablet by mouth once daily. testosterone (ANDROGEL) 50 mg / 5 g (1%) Apply 1 packet to affected area every other day. Alternating with 25 mg. losartan (COZAAR) 50 mg tablet Take 1 tablet by mouth once daily. pantoprazole DR (PROTONIX) 40 mg tablet TAKE 1 TABLET BY MOUTH DAILY testosterone (ANDROGEL) 25 mg/ 2.5g (1%) Apply 1 packet to affected area every other day for 180 days. Alernating witth 50 mg qod diclofenac (VOLTAREN) 1 % topical gel APPLY 4 GRAMS TO THE LOWER EXTREMITY JOINT WITH A MAXIMUM OF 16 GRAMS PER DAY lidocaine (LMX) 4 % cream Apply to affected area once daily as needed. lidocaine HCl 2 % crea Apply to affected area once daily as needed. amphetamine-dextroamphetamine XR (ADDERALL XR) 10 mg capsule Take 10 mg by mouth once daily. buPROPion (WELLBUTRIN) 75 mg tablet Take 75 mg by mouth two times a day. budesonide-formoterol (SYMBICORT) 80-4.5 mcg/actuation inhaler Inhale 2 Puffs as instructed two times a day. Tadalafil (CIALIS) 20 mg tablet TAKE 1 TABLET BY MOUTH 1-2 HOURS BEFORE SEXUAL INTRACOURSE NEEDED albuterol HFA (VENTOLIN HFA) 90 mcg/actuation inhaler Inhale 2 Puffs as instructed every 4 hours as needed for wheezing/shortness of breath. acetaminophen (TYLENOL EXTRA STRENGTH) 500 mg tablet Take 2 tablets by mouth every 8 hours as needed for pain. traMADol (ULTRAM) 50 mg tablet albuterol (PROVENTIL) 2.5 mg /3 mL (0.083 %) nebulizer solution Use 3 mL via nebulizer every 6 hours as needed for wheezing/shortness of breath. Use over 5-15minutes. CPAP/BIPAP/OTHER autoCPAP 5-20 cmH2O DME [facility] CPAP Initiate Auto PAP @ 5-20 cm of water with humidification. Mask (per patient preference) optional chin strap (if indicated) , filters, tubing, humidifier and lifetime supplies. Current machine is 7 years old and needs replaced. Insurance if refusing titration sleep study. clonazePAM (KLONOPIN) 1 mg tablet TAKE 1/2 TABLET THREE TIMES A DAY NEEDED No current facility-administered medications for this visit. Past medical history: AMANDA, GERD, dyslipidemia, depression, hypertension, TBI Past surgical history: Ex lap abdominal surgery, right wrist surgery, hernia repair, cholecystectomy Social history: Denies smoking cigarettes, social drinker, denies recreational drugs; currently disabled Family history: Denies family history of diabetes mellitus; denies family history of thyroid problems ALLERGIES Allergen Reactions Penicillin G Hives Sulfa (Sulfonamide * Hives Celebrex [Celecoxib] Rash Lisinopril Intolerance Cough REVIEW OF SYSTEM: Review of Systems: A 14 point review of systems negative except as above in the HPI PHYSICAL EXAMINATION: EXAM: Physical Exam Constitutional: Appearance: Normal appearance. He is obese. HENT: Head: Normocephalic and atraumatic. Nose: Nose normal. Mouth/Throat: Mouth: Mucous membranes are moist. Eyes: Conjunctiva/sclera: Conjunctivae normal. Neck: Comments: No thyromegaly noted on physical exam Cardiovascular: Rate and Rhythm: Normal rate and regular rhythm. Pulmonary: Effort: Pulmonary effort is normal. Breath sounds: Normal breath sounds. Musculoskeletal: General: Normal range of motion. Cervical back: Normal range of motion and neck supple. Skin: General: Skin is warm and dry. Neurological: Mental Status: He is alert and oriented to person, place, and time. Psychiatric: Mood and Affect: Mood normal. Judgment: Judgment normal. Comments: patient states that mood is good and denies any suicidal or homicidal ideations ASSESSMENT & PLAN: Morbid Obesity with GERD and AMANDA: Patient has a BMI>40 with multiple comorbidities (HTN,DLP,AMANDA,GERD,RQOL) which can be helped by weight loss.With this BMI,the patient also qualifies for all bariatric interventions including bariatric surgery (the best option for this patient to lose the amount of weight that the patient wants to lose). However,the patient wants to try diet and exercise and weight loss medications before considering weight loss surgery.Educated the patient well today on diet and exercise and referred the patient to nutrition clinic,exercise physio and endo psych for eating triggers. Will also get baseline labs on the patient:so CMP,A1c,FLP,TSH.In terms of weight loss medications,the patient cannot be on Phentermine as the patient is already on a stimulant (Adderall) and the patient cannot be on Contrave as the patient is on Tramadol PRN.This patient will do best on a GLP-1 as GLP-1 medications are medications that have been studied for control of BG,reducing weight,curing AMANDA and also found to have cardiac effects as per the ADA;all of which would help this patient.So will start the patient on a course of Zepbound:so start Zepbound 2.5 mg/wk (patient states that he knows how to inject or will contact us if having issues with it).Goal weight loss in 3 months is 13 lbs.Goal weight in this patient is 155 lbs.Educated the patient well to follow with sleep clinic for AMANDA.Will also refer the patient to Orthopedics (as per patient request) for a second opinion for his back pain after the accident. HTN: Note that the patient has a history of HTN.BP today in clinic is well controlled.Continue current regimen. Dyslipidemia: Note that the patient has a history of DLP being managed with a statin.No recent LDL or LFTs.Continue current regimen and will continue to monitor. Note that this patient is very complicated to manage due to all his comorbidities. Patient has been counselled regarding followin. diagnostic considerations and management plan along with associated risks and benefits 2. dietary modifications, regular exercise and wt loss 3. medications and their common and serious side effects along with initial management 4. warning signs/symptoms and to call in if experiencing them, f/u, implications of non adherence 5.female patients were also well educated to call in and inform if she is or gets so medications can be adjusted as appropriate Pt has voiced clear understanding and agreement of the above. I spent a total of 71 minutes on the date of the service which included preparing to see the patient, [id number] patient care, completing clinical documentation, obtaining and/or reviewing separately obtained history, performing a medically appropriate examination, counseling and educating the patient/family/caregiver, and ordering medications, tests, or procedures RTC:3 months with labs Sheron Mark MD [1] Social History Tobacco Use Smoking status: Never Smokeless tobacco: Never Vaping Use Vaping status: Never Used Substance Use Topics Alcohol use: Yes Alcohol/week: 1.0 standard drink of alcohol Types: 1 Cans of Beer (12oz) per week Drug use: No documented in this encounter [facility] 07-01-2025 Note HNO ID: [id number] Author: VIVEK SOTO RN Service: ? Author Type: Registered Nurse Type: Progress Notes Filed: 07/01/2025 09:50 Note Text: The back (site) was assessed and sutures were removed as ordered. Dressing was applied. Patient instructed on wound care and verbalized understanding. Vivek Soto RN [facility] 07-01-2025 History of Present illness Narrative The back (site) was assessed and sutures were removed as ordered. Dressing was applied. Patient instructed on wound care and verbalized understanding. Vivek Soto RN documented in this encounter [facility] 06-23-2025 Instructions Vivek Soto RN - 06/23/2025 9:33 AM EDT The following instructions are important for you related to your office visit today with the [facility] General Surgeons. Instructions After SKIN EXCISION-SUTURES You can remove the dressing in two days. If the dressing becomes soaked or had significant drainage, the dressing should be changed. If there is minor bleeding from this skin edge, you should hold pressure on the incision until the bleeding stops. If there is continued bleeding, you should contact our office immediately. You do not need to leave a dressing on the wound after two days. If the wound shows signs of redness, inflammation, or purulent drainage, you should contact our office immediately. You should keep the wound dry for the first two days. After that time, you may wash the wound with gentle soap and water. The wound should not be immersed in a pool, bathtub, or even hot tub. We prefer to check the incision and remove the stitches in our office when ready. Please make an appointment to return to our office in 7 days. Please do not remove the stitches yourself without approval from our office. If you note any additional difficulties, questions, or concerns, you should contact our office immediately @ [phone] and ask to be transferred to the General Surgery department. documented in this encounter [facility] 06-23-2025 Note HNO ID: [id number] Author: VIVEK SOTO RN Service: ? Author Type: Registered Nurse Type: Procedures Filed: 06/23/2025 09:33 Note Text: UNIVERSAL PROTOCOL / SAFETY CHECKLIST Procedure to be Performed: Excision of skin lesion of back Sign In: A Moment of CARE was completed. Appropriate PPE (Personal Protective Equipment) worn by all providers involved with the procedure. Special equipment not required. Patient/Surrogate Stated/Verified: Patient name, Date of , Relevant allergies, and The intended procedure Time Out: Relevant labs, photos, and/or imaging studies have been reviewed. Intended patient and procedure match the source document(s) (e.g. consent, HANDP, associated studies [imaging, pathology]) match the intended patient and procedure. Consent obtained and matches the intended procedure. Yes. Correct side/site has been marked and visible. Medications required for this procedure are verified. Fire risk assessed and is not applicable. Implants: are not applicable. Sign Out: Specimens are all correctly labeled and sent. All instruments, equipment, possible retained foreign bodies are accounted for. Yes. The post-procedure plan of care has been communicated to the patient or surrogate. [facility] 06-23-2025 Procedure note UNIVERSAL PROTOCOL / SAFETY CHECKLIST Procedure to be Performed: Excision of skin lesion of back Sign In: A Moment of CARE was completed. Appropriate PPE (Personal Protective Equipment) worn by all providers involved with the procedure. Special equipment not required. Patient/Surrogate Stated/Verified: Patient name, Date of , Relevant allergies, and The intended procedure Time Out: Relevant labs, photos, and/or imaging studies have been reviewed. Intended patient and procedure match the source document(s) (e.g. consent, H&P, associated studies [imaging, pathology]) match the intended patient and procedure. Consent obtained and matches the intended procedure. Yes. Correct side/site has been marked and visible. Medications required for this procedure are verified. Fire risk assessed and is not applicable. Implants: are not applicable. Sign Out: Specimens are all correctly labeled and sent. All instruments, equipment, possible retained foreign bodies are accounted for. Yes. The post-procedure plan of care has been communicated to the patient or surrogate. [facility] 06-23-2025 Procedure note UNIVERSAL PROTOCOL / SAFETY CHECKLIST Procedure to be Performed: Excision of skin lesion of back Sign In: A Moment of CARE was completed. Appropriate PPE (Personal Protective Equipment) worn by all providers involved with the procedure. Special equipment not required. Patient/Surrogate Stated/Verified: Patient name, Date of , Relevant allergies, and The intended procedure Time Out: Relevant labs, photos, and/or imaging studies have been reviewed. Intended patient and procedure match the source document(s) (e.g. consent, H&P, associated studies [imaging, pathology]) match the intended patient and procedure. Consent obtained and matches the intended procedure. Yes. Correct side/site has been marked and visible. Medications required for this procedure are verified. Fire risk assessed and is not applicable. Implants: are not applicable. Sign Out: Specimens are all correctly labeled and sent. All instruments, equipment, possible retained foreign bodies are accounted for. Yes. The post-procedure plan of care has been communicated to the patient or surrogate. documented in this encounter [facility] 06-23-2025 Note HNO ID: [id number] Author: NATALI BUTLER MD Service: ? Author Type: Physician Type: Progress Notes Filed: 06/23/2025 09:41 Note Text: Patient presents for removal of additional skin lesion. Had previous skin biopsies April 2025 - pathology reveals intradermal nevi. PROCEDURE NOTE: Description of procedure: After informed consent was obtained, patient was brought to the procedure room. Appropriate time out protocol was followed. Patient was placed in the prone position. The site of the lesion was then cleansed with a sterile surgical skin preparation. Appropriate sterile surgical drapes were placed. The skin and subcutaneous tissues at the site were then infiltrated with local anesthetic. A skin incision was made at the site in an elliptical fashion to entirely incorporate the lesion with a 15 blade scalpel. The incision was carried down to the subcutaneous tissues. Dissection was done to separate the skin lesion from the surrounding subcutaneous tissues. The lesion was excised sharply down to the subcutaneous tissues. The lesion was 0.8 cm in size. The tissue was then removed and placed in formalin to be forwarded to pathology for analysis. Hemostasis was controlled by pressure. The skin edges were then reapproximated with interrupted 3-0 nylon suture in a simple fashion. Sterile dressing was applied. Patient tolerated procedure well. PLAN: Wound care instructions given by clinic staff. Patient to follow up for nursing visit for removal of sutures. Office will call with results of pathology. Patient to return to clinic if any signs/symptoms of infection/etc. Patient acknowledges the above. [facility] 06-23-2025 History of Present illness Narrative Patient presents for removal of additional skin lesion. Had previous skin biopsies April 2025 - pathology reveals intradermal nevi. PROCEDURE NOTE: Description of procedure: After informed consent was obtained, patient was brought to the procedure room. Appropriate time out protocol was followed. Patient was placed in the prone position. The site of the lesion was then cleansed with a sterile surgical skin preparation. Appropriate sterile surgical drapes were placed. The skin and subcutaneous tissues at the site were then infiltrated with local anesthetic. A skin incision was made at the site in an elliptical fashion to entirely incorporate the lesion with a 15 blade scalpel. The incision was carried down to the subcutaneous tissues. Dissection was done to separate the skin lesion from the surrounding subcutaneous tissues. The lesion was excised sharply down to the subcutaneous tissues. The lesion was 0.8 cm in size. The tissue was then removed and placed in formalin to be forwarded to pathology for analysis. Hemostasis was controlled by pressure. The skin edges were then reapproximated with interrupted 3-0 nylon suture in a simple fashion. Sterile dressing was applied. Patient tolerated procedure well. PLAN: Wound care instructions given by clinic staff. Patient to follow up for nursing visit for removal of sutures. Office will call with results of pathology. Patient to return to clinic if any signs/symptoms of infection/etc. Patient acknowledges the above. documented in this encounter [facility] 06-17-2025 Note HNO ID: [id number] Author: MYAH ARTEAGA MD Service: ? Author Type: Physician Type: Progress Notes Filed: 06/17/2025 16:38 Note Text: Regan Ballesteros is a 59-year-old male with a history of coronary artery calcification, chronic pain, and depression, presenting for follow-up. HPI Coronary Artery Calcification: - Coronary artery calcification incidentally found on a CT scan of the lungs. - Recent normal stress test. - Started on Lipitor and aspirin by cardiology. - No current angina or dyspnea. - Blood pressure reportedly well-controlled. Chronic Pain: - Chronic pain managed with tramadol and caudal epidural injections. - Scheduled for an L5 nerve block. - Experiencing neuropathic pain in the legs, particularly at night, managed with clonazepam. - Considering a spinal cord stimulator for persistent burning pain in the foot. - Using 5% lidocaine and Voltaren gel for localized pain relief. Depression: - Managed with Adderall and Wellbutrin; recent dosage increase. - Reports feeling well with current medication regimen. Pulmonary Nodule: - Small nodule in the right lower lobe found on CT scan. - Scheduled for follow-up CT scan in a year. Hyperlipidemia: - Recently started on Lipitor. - Lipid panel ordered for next year. Chronic Kidney Disease: - Under care of nephrology. - Recent labs showed abnormal phosphorus levels; nephrology not concerned. - Monitoring protein levels in urine. Hypogonadism: - On testosterone replacement therapy. - Reports differences in absorption between different packaging of testosterone gel. - Recent testosterone levels reportedly stable. Obstructive Sleep Apnea: - Using CPAP therapy. - Reports good sleep quality with CPAP use. MEDICATIONS: Current Outpatient Medications Medication Sig aspirin, enteric coated (ECOTRIN LOW STRENGTH) 81 mg EC tablet Take 1 tablet by mouth once daily. atorvastatin (LIPITOR) 10 mg tablet Take 1 tablet by mouth once daily. testosterone (ANDROGEL) 50 mg / 5 g (1%) Apply 1 packet to affected area every other day. Alternating with 25 mg. losartan (COZAAR) 50 mg tablet Take 1 tablet by mouth once daily. pantoprazole DR (PROTONIX) 40 mg tablet TAKE 1 TABLET BY MOUTH DAILY testosterone (ANDROGEL) 25 mg/ 2.5g (1%) Apply 1 packet to affected area every other day for 180 days. Alernating witth 50 mg qod diclofenac (VOLTAREN) 1 % topical gel APPLY 4 GRAMS TO THE LOWER EXTREMITY JOINT WITH A MAXIMUM OF 16 GRAMS PER DAY lidocaine (LMX) 4 % cream Apply to affected area once daily as needed. lidocaine HCl 2 % crea Apply to affected area once daily as needed. amphetamine-dextroamphetamine XR (ADDERALL XR) 10 mg capsule Take 10 mg by mouth once daily. buPROPion (WELLBUTRIN) 75 mg tablet Take 75 mg by mouth two times a day. budesonide-formoterol (SYMBICORT) 80-4.5 mcg/actuation inhaler Inhale 2 Puffs as instructed two times a day. Tadalafil (CIALIS) 20 mg tablet TAKE 1 TABLET BY MOUTH 1-2 HOURS BEFORE SEXUAL INTRACOURSE NEEDED albuterol HFA (VENTOLIN HFA) 90 mcg/actuation inhaler Inhale 2 Puffs as instructed every 4 hours as needed for wheezing/shortness of breath. acetaminophen (TYLENOL EXTRA STRENGTH) 500 mg tablet Take 2 tablets by mouth every 8 hours as needed for pain. traMADol (ULTRAM) 50 mg tablet albuterol (PROVENTIL) 2.5 mg /3 mL (0.083 %) nebulizer solution Use 3 mL via nebulizer every 6 hours as needed for wheezing/shortness of breath. Use over 5-15minutes. CPAP/BIPAP/OTHER autoCPAP 5-20 cmH2O DME [employer] CPAP Initiate Auto PAP @ 5-20 cm of water with humidification. Mask (per patient preference) optional chin strap (if indicated) , filters, tubing, humidifier and lifetime supplies. Current machine is 7 years old and needs replaced. Insurance if refusing titration sleep study. clonazePAM (KLONOPIN) 1 mg tablet TAKE 1/2 TABLET THREE TIMES A DAY NEEDED No current facility-administered medications for this visit. ALLERGIES: ALLERGIES Allergen Reactions Penicillin G Hives Sulfa (Sulfonamide * Hives Celebrex [Celecoxib] Rash Lisinopril Intolerance Cough PAST MEDICAL HISTORY Diagnosis Date ACNE NEC 10/13/2006 Anxiety 01/16/2023 Coronary artery calcification 06/17/2025 Depression Dyslipidemia Essential hypertension 01/16/2023 GERD (gastroesophageal reflux disease) 01/16/2023 History of traumatic brain injury Hypogonadism male 10/30/1988 Left knee pain Obesity AMANDA (obstructive sleep apnea) 10/30/2005 cpap PMH - PAST MEDICAL HISTORY OF L 5 nerve injury workman comp PMH - PAST MEDICAL HISTORY OF 10/30/1988 Industrial accident fall Stroke (HCC) Thrombosed external hemorrhoid 10/26/2011 Unspecified site of spinal cord injury without evidence of spinal bone injury 01/25/2013 PAST SURGICAL HISTORY Procedure Laterality Date ABDOMINAL SURGERY HX COLONOSCOPY FLX DX W/COLLJ SPEC WHEN PFRMD 04/17/2012 repeat 10 years COLONOSCOPY SCREENING 0 (more content not included)... [facility] 06-17-2025 History of Present illness Narrative Regan Ballesteros is a 59-year-old male with a history of coronary artery calcification, chronic pain, and depression, presenting for follow-up. HPI Coronary Artery Calcification: - Coronary artery calcification incidentally found on a CT scan of the lungs. - Recent normal stress test. - Started on Lipitor and aspirin by cardiology. - No current angina or dyspnea. - Blood pressure reportedly well-controlled. Chronic Pain: - Chronic pain managed with tramadol and caudal epidural injections. - Scheduled for an L5 nerve block. - Experiencing neuropathic pain in the legs, particularly at night, managed with clonazepam. - Considering a spinal cord stimulator for persistent burning pain in the foot. - Using 5% lidocaine and Voltaren gel for localized pain relief. Depression: - Managed with Adderall and Wellbutrin; recent dosage increase. - Reports feeling well with current medication regimen. Pulmonary Nodule: - Small nodule in the right lower lobe found on CT scan. - Scheduled for follow-up CT scan in a year. Hyperlipidemia: - Recently started on Lipitor. - Lipid panel ordered for next year. Chronic Kidney Disease: - Under care of nephrology. - Recent labs showed abnormal phosphorus levels; nephrology not concerned. - Monitoring protein levels in urine. Hypogonadism: - On testosterone replacement therapy. - Reports differences in absorption between different packaging of testosterone gel. - Recent testosterone levels reportedly stable. Obstructive Sleep Apnea: - Using CPAP therapy. - Reports good sleep quality with CPAP use. MEDICATIONS: Current Outpatient Medications Medication Sig aspirin, enteric coated (ECOTRIN LOW STRENGTH) 81 mg EC tablet Take 1 tablet by mouth once daily. atorvastatin (LIPITOR) 10 mg tablet Take 1 tablet by mouth once daily. testosterone (ANDROGEL) 50 mg / 5 g (1%) Apply 1 packet to affected area every other day. Alternating with 25 mg. losartan (COZAAR) 50 mg tablet Take 1 tablet by mouth once daily. pantoprazole DR (PROTONIX) 40 mg tablet TAKE 1 TABLET BY MOUTH DAILY testosterone (ANDROGEL) 25 mg/ 2.5g (1%) Apply 1 packet to affected area every other day for 180 days. Alernating witth 50 mg qod diclofenac (VOLTAREN) 1 % topical gel APPLY 4 GRAMS TO THE LOWER EXTREMITY JOINT WITH A MAXIMUM OF 16 GRAMS PER DAY lidocaine (LMX) 4 % cream Apply to affected area once daily as needed. lidocaine HCl 2 % crea Apply to affected area once daily as needed. amphetamine-dextroamphetamine XR (ADDERALL XR) 10 mg capsule Take 10 mg by mouth once daily. buPROPion (WELLBUTRIN) 75 mg tablet Take 75 mg by mouth two times a day. budesonide-formoterol (SYMBICORT) 80-4.5 mcg/actuation inhaler Inhale 2 Puffs as instructed two times a day. Tadalafil (CIALIS) 20 mg tablet TAKE 1 TABLET BY MOUTH 1-2 HOURS BEFORE SEXUAL INTRACOURSE NEEDED albuterol HFA (VENTOLIN HFA) 90 mcg/actuation inhaler Inhale 2 Puffs as instructed every 4 hours as needed for wheezing/shortness of breath. acetaminophen (TYLENOL EXTRA STRENGTH) 500 mg tablet Take 2 tablets by mouth every 8 hours as needed for pain. traMADol (ULTRAM) 50 mg tablet albuterol (PROVENTIL) 2.5 mg /3 mL (0.083 %) nebulizer solution Use 3 mL via nebulizer every 6 hours as needed for wheezing/shortness of breath. Use over 5-15minutes. CPAP/BIPAP/OTHER autoCPAP 5-20 cmH2O DME [employer] CPAP Initiate Auto PAP @ 5-20 cm of water with humidification. Mask (per patient preference) optional chin strap (if indicated) , filters, tubing, humidifier and lifetime supplies. Current machine is 7 years old and needs replaced. Insurance if refusing titration sleep study. clonazePAM (KLONOPIN) 1 mg tablet TAKE 1/2 TABLET THREE TIMES A DAY NEEDED No current facility-administered medications for this visit. ALLERGIES: ALLERGIES Allergen Reactions Penicillin G Hives Sulfa (Sulfonamide * Hives Celebrex [Celecoxib] Rash Lisinopril Intolerance Cough PAST MEDICAL HISTORY Diagnosis Date ACNE NEC 10/13/2006 Anxiety 01/16/2023 Coronary artery calcification 06/17/2025 Depression Dyslipidemia Essential hypertension 01/16/2023 GERD (gastroesophageal reflux disease) 01/16/2023 History of traumatic brain injury Hypogonadism male 10/30/1988 Left knee pain Obesity AMANDA (obstructive sleep apnea) 10/30/2005 cpap PMH - PAST MEDICAL HISTORY OF L 5 nerve injury workman comp PMH - PAST MEDICAL HISTORY OF 10/30/1988 Industrial accident fall Stroke (HCC) Thrombosed external hemorrhoid 10/26/2011 Unspecified site of spinal cord injury without evidence of spinal bone injury 01/25/2013 PAST SURGICAL HISTORY Procedure Laterality Date ABDOMINAL SURGERY HX COLONOSCOPY FLX DX W/COLLJ SPEC WHEN PFRMD 04/17/2012 repeat 10 years COLONOSCOPY SCREENING 06/09/2022 10 year f/u colonoscopy FRACTURE SURGERY JOINT REPLACEMENT HX LAPAROSCOPY SURG CHOLECYSTECTOMY 08/01/2017 Cholecystectomy, lap PAST SURGICAL HISTORY OF Right 1988 wrist fracture after work accident, states still has hardware PAST SURGICAL HISTORY OF 1988 exploratory after accident, opened from pubic bone to breastbone REPAIR NASAL SEPTUM DEFECT RPR 1ST INCAL/VNT HERNIA INCARCERATED 10/28/2019 TOTAL HIP REPLACEMENT Left 2021 VASECTOMY UNI/BI SPX W/POSTOP SEMEN EXAMS Bilateral 1999 FAMILY HISTORY Problem Relation Age of Onset Heart Mother Hypertension Mother Stroke Mother Cancer Father lung, throat other (lymphoma) Sister other (car accident) Sister None Brother None Brother SOCIAL HISTORY[1] Reviewed current medications, allergies, past medical history, surgical history, family history and social history today. REVIEW OF SYSTEMS Constitutional: (+) insomnia Cardiovascular: (-) chest pain Respiratory: (-) dyspnea Musculoskeletal: (+) lower right back pain Neurological: (+) leg neuropathic pain, (+) burning foot pain, (+) restless legs HEALTH MAINTENANCE: Reviewed health maintenance issues today and recommended the following in detail. LDL Cholesterol due on 02/08/2025 LAB REVIEWED: Labs: - CBC and renal function: - Kidney function normal - Phosphorus abnormal - Protein not clinically concerning - Testosterone level (6 months ago): Normal Tests: - (10/15/2024) Stress test: Normal Imaging: - CT chest: Incidental coronary artery calcification, small right lower lobe nodule VITALS: BP 132/72 Pulse 77 Wt 118.4 kg (261 lb) SpO2 96% BMI 43.43 kg/m Last 4 Encounter Wt Readings: Date: Wt: 06/17/2025 118.4 kg (261 lb) 06/02/2025 120.7 kg (266 lb) 05/05/2025 119 kg (262 lb 6.4 oz) 05/01/2025 119.3 kg (263 lb) PHYSICAL EXAMINATION: GENERAL: NAD, alert and oriented. SKIN: Unremarkable, no rash or skin lesions. NECK: Supple, no lymphadenopathy, normal thyroid, no carotid bruits. LUNGS: Clear to auscultation bilaterally, no wheezes/rhonchi/rales. HEART: Regular rate and rhythm, no murmurs. No ectopy. EXTREMITIES: Normal, no deformities, no skin discoloration, no edema. NEURO: Awake, alert and oriented x3, cranial nerves II-XII grossly intact, normal gait, no involuntary motions. ASSESSMENT AND PLAN 1. Traumatic brain injury with loss of consciousness, subsequent encounter (S06.9X9D) - stable. no new issues. 2. Essential hypertension (I10) 3. Mixed hyperlipidemia (E78.2) 4. Dyslipidemia (E78.5) 5. Coronary artery calcification (I25.10) - Coronary artery calcification noted on prior CT; normal stress test on October 15, 2024. - Reviewed cardiology recommendations: maintain tight blood pressure control, start Lipitor, and daily aspirin. - Educated that coronary calcification does not necessarily indicate significant blockage; rationale for statin and aspirin therapy explained. - Start Lipitor as prescribed by cardiology. - Continue daily aspirin. - Order fasting lipid panel and liver function tests in 1 month to monitor response to Lipitor. - Follow-up with cardiology in 1 year. 6. AMANDA (obstructive sleep apnea) (G47.33) - Continues to use CPAP. 7. Gastroesophageal reflux disease, unspecified whether esophagitis present (K21.9) - Stable. 8. Degeneration of intervertebral disc of lumbar region, unspecified whether pain present (M51.369) - Chronic back pain managed with tramadol, caudal epidural injections, and topical lidocaine and Voltaren gel. - L5 nerve block planned for next visit with pain management. - Discussed potential trial of spinal cord stimulator for persistent neuropathic pain. 9. Adjustment disorder with depressed mood (F43.21) - Mood stable with current regimen; Adderall and Wellbutrin recently increased. - Continues to follow with psychiatry. 10. 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 11. Morbid obesity (HCC) (E66.01) - Discussed challenges with insurance coverage for weight loss medications. - Encouraged ongoing dietary efforts. - Patient to follow-up with endocrinology for further weight management options. 12. Lung nodule (R91.1) - Small nodule in right lower lobe noted on prior CT; follow-up CT scheduled in 1 year to monitor for changes. 13. Proteinuria, unspecified type (R80.9) - Recent labs reviewed by nephrology; phosphorus slightly elevated but not concerning. - Nephrology recommends ongoing monitoring; no immediate follow-up needed. 14. Screening for malignant neoplasm of prostate (Z12.5) - Order PSA in 1 month. 15. 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 - Order testosterone level and CBC in 1 month. - Patient reports differences in absorption between different packaging of testosterone gel; advised to continue current regimen as long as effective. - Follow-up in 6 months. (See patient after visit summary for additional instructions to patient) Myah Arteaga MD Recording using [employer] software for draft documentation of the visit was discussed with the patient/authorized auto claim representative; all questions welcomed and answered. Patient/authorized auto claim representative agreed to proceed [1] Social History Tobacco Use Smoking status: Never Smokeless tobacco: Never Vaping Use Vaping status: Never Used Substance Use Topics Alcohol use: Yes Alcohol/week: 1.0 standard drink of alcohol Types: 1 Cans of Beer (12oz) per week Drug use: No documented in this encounter [facility] 06-17-2025 Instructions Myah Arteaga MD - 06/17/2025 2:19 PM EDT - Continue taking Lipitor (atorvastatin) daily as prescribed to help stabilize plaque. - Take aspirin once daily. - Keep using your prescribed testosterone regimen; routine labs will monitor levels. - In one month, have blood drawn for: CBC Liver function tests Fasting lipid panel PSA Testosterone level - Continue using your CPAP machine nightly for sleep apnea. - Use tramadol for pain as prescribed and apply 5% lidocaine cream plus Voltaren gel to painful areas as needed. - Maintain your current diet and continue blood pressure medications to keep your blood pressure tightly controlled. - Return in six months for follow-up to review lab results and overall management. - Complete a follow-up chest CT in about 12 months to recheck the lung nodule. - Follow up with cardiology in one year to reassess your coronary calcification. - Schedule an appointment with Dr. Butler to remove the remaining skin lesion. - Follow up with pain management for the planned L5 nerve block procedure. documented in this encounter [facility] 06-09-2025 Note HNO ID: [id number] Author: VIVEK SOTO RN Service: ? Author Type: Registered Nurse Type: Progress Notes Filed: 06/09/2025 08:30 Note Text: The back (site) was assessed and sutures were removed as ordered. Dressing was applied. Patient instructed on wound care and verbalized understanding. Path reviewed by Holly Maloney and discussed with the Pt. [facility] 06-09-2025 History of Present illness Narrative The back (site) was assessed and sutures were removed as ordered. Dressing was applied. Patient instructed on wound care and verbalized understanding. Path reviewed by Holly Maloney and discussed with the Pt. documented in this encounter [facility] 06-02-2025 History of Present illness Narrative Images from the original note were not included. [facility] [place] Kit Strickland Department of Cardiovascular Medicine SECTION OF REGIONAL CARDIOLOGY Vic Ballesteros is a 59 year old male here today for 7 month follow up. HPI: Vic Ballesteros is a (an) 59 year old year old male who is here today for continuation of cardiac care. Currently the patient is asymptomatic heart ahumada and has no cardiovascular complaints denying chest pain, shortness of breath, orthopnea, paroxysmal nocturnal dyspnea, cyanosis, palpitations, dizziness, lightheadedness, near syncope, syncope, edema of the lower extremities, perceived recent weight gain or intermittent claudications. The patient exercises regularly 6-7 times per week with walking. There were no cardiac, blood pressure or cholesterol medication changes since the patient was last seen during a cardiac visit. PAST MEDICAL HISTORY Diagnosis Date ACNE NEC 10/13/2006 Anxiety 01/16/2023 Depression Dyslipidemia Essential hypertension 01/16/2023 GERD (gastroesophageal reflux disease) 01/16/2023 History of traumatic brain injury Hypogonadism male 10/30/1988 Left knee pain Obesity AMANDA (obstructive sleep apnea) 10/30/2005 cpap PMH - PAST MEDICAL HISTORY OF L 5 nerve injury workman comp PMH - PAST MEDICAL HISTORY OF 10/30/1988 Industrial accident fall Stroke (HCC) Thrombosed external hemorrhoid 10/26/2011 Unspecified site of spinal cord injury without evidence of spinal bone injury 01/25/2013 PAST SURGICAL HISTORY Procedure Laterality Date ABDOMINAL SURGERY HX COLONOSCOPY FLX DX W/COLLJ SPEC WHEN PFRMD 04/17/2012 repeat 10 years COLONOSCOPY SCREENING 06/09/2022 10 year f/u colonoscopy FRACTURE SURGERY JOINT REPLACEMENT HX LAPAROSCOPY SURG CHOLECYSTECTOMY 08/01/2017 Cholecystectomy, lap PAST SURGICAL HISTORY OF Right 1988 wrist fracture after work accident, states still has hardware PAST SURGICAL HISTORY OF 1988 exploratory after accident, opened from pubic bone to breastbone REPAIR NASAL SEPTUM DEFECT RPR 1ST INCAL/VNT HERNIA INCARCERATED 10/28/2019 TOTAL HIP REPLACEMENT Left 2021 VASECTOMY UNI/BI SPX W/POSTOP SEMEN EXAMS Bilateral 1999 FAMILY HISTORY Problem Relation Age of Onset Heart Mother Hypertension Mother Stroke Mother Cancer Father lung, throat other (lymphoma) Sister other (car accident) Sister None Brother None Brother SOCIAL HISTORY Social History Tobacco Use Smoking status: Never Smokeless tobacco: Never Vaping Use Vaping status: Never Used Substance Use Topics Alcohol use: Yes Alcohol/week: 1.0 standard drink of alcohol Types: 1 Cans of Beer (12oz) per week Drug use: No ALLERGIES: Penicillin G, Sulfa (Sulfonamide Antibiotics), Celebrex [Celecoxib], and Lisinopril CURRENT MEDICATIONS: Current Outpatient Medications Medication Sig testosterone (ANDROGEL) 50 mg / 5 g (1%) Apply 1 packet to affected area every other day. Alternating with 25 mg. losartan (COZAAR) 50 mg tablet Take 1 tablet by mouth once daily. pantoprazole DR (PROTONIX) 40 mg tablet TAKE 1 TABLET BY MOUTH DAILY testosterone (ANDROGEL) 25 mg/ 2.5g (1%) Apply 1 packet to affected area every other day for 180 days. Alernating witth 50 mg qod amphetamine-dextroamphetamine XR (ADDERALL XR) 10 mg capsule Take 10 mg by mouth once daily. buPROPion (WELLBUTRIN) 75 mg tablet Take 75 mg by mouth two times a day. Tadalafil (CIALIS) 20 mg tablet TAKE 1 TABLET BY MOUTH 1-2 HOURS BEFORE SEXUAL INTRACOURSE NEEDED acetaminophen (TYLENOL EXTRA STRENGTH) 500 mg tablet Take 2 tablets by mouth every 8 hours as needed for pain. traMADol (ULTRAM) 50 mg tablet CPAP Initiate Auto PAP @ 5-20 cm of water with humidification. Mask (per patient preference) optional chin strap (if indicated) , filters, tubing, humidifier and lifetime supplies. Current machine is 7 years old and needs replaced. Insurance if refusing titration sleep study. clonazePAM (KLONOPIN) 1 mg tablet TAKE 1/2 TABLET THREE TIMES A DAY NEEDED diclofenac (VOLTAREN) 1 % topical gel APPLY 4 GRAMS TO THE LOWER EXTREMITY JOINT WITH A MAXIMUM OF 16 GRAMS PER DAY lidocaine (LMX) 4 % cream Apply to affected area once daily as needed. lidocaine HCl 2 % crea Apply to affected area once daily as needed. budesonide-formoterol (SYMBICORT) 80-4.5 mcg/actuation inhaler Inhale 2 Puffs as instructed two times a day. albuterol HFA (VENTOLIN HFA) 90 mcg/actuation inhaler Inhale 2 Puffs as instructed every 4 hours as needed for wheezing/shortness of breath. albuterol (PROVENTIL) 2.5 mg /3 mL (0.083 %) nebulizer solution Use 3 mL via nebulizer every 6 hours as needed for wheezing/shortness of breath. Use over 5-15minutes. CPAP/BIPAP/OTHER autoCPAP 5-20 cmH2O DME [employer] No current facility-administered medications for this visit. PHYSICAL EXAMINATION: GENERAL: alert cooperative, pleasant oriented x 3 (self, time and place) in no acute distress BP 130/84 Pulse 64 Ht 165.1 cm (5' 5) Wt 120.7 kg (266 lb) BMI 44.26 kg/m Last 3 Encounter BP Readings: Date: BP: 05/05/2025 122/86 05/01/2025 128/78 04/29/2025 134/77 Last 3 Encounter Pulse Readings: Date: Pulse: 05/05/2025 83 05/01/2025 63 04/29/2025 61 Last 3 Encounter Wt Readings: Date: Wt: 05/05/2025 119 kg (262 lb 6.4 oz) 05/01/2025 119.3 kg (263 lb) 04/29/2025 120.8 kg (266 lb 5.1 oz) SKIN: warm, dry, no rash. NECK: supple, no palpable masses, no JVD, carotids well felt, no bruits. CARDIAC: Addison palpable in the 5th intercostal space mid clavicular line, normal S1 and S2, no murmurs, gallops, or rubs. CHEST: Normal respiratory efforts, lungs clear to auscultation bilaterally. ABDOMEN: Soft, no tenderness, rigidity, or masses. No palpable liver or spleen. Normal bowel sounds, no bruits. NEURO: intact cranial nerves II through XII, no motor or sensory deficits in all 4 extremities. EXTREMITIES: No cyanosis, clubbing, or edema. Peripheral pulses well felt. CARDIAC TESTING: The following testing (including images and tracings) were personally reviewed by myself: 10/15/2024 NUC 1. SPECT Perfusion Study: Normal. 2. There is no scintigraphic evidence for inducible ischemia. 3. No evidence of scarred myocardium. 4. Left ventricle is normal in size. The left ventricle systolic function is normal. 5. This is a low risk scan. Gated Stress FBP LVEF % 67 Stress Test Findings: There is no scintigraphic evidence for inducible ischemia. There is no evidence of scarring. 07/30/2024 CT Chest RESULT: Limitations: None. Lines, tubes, and devices: None. Lung parenchyma and airways: No consolidation. 5 mm nodule right lower lobe (7:138). The central airways are patent. Pleural space: No pleural effusion. No pleural thickening. Lower neck, lymph nodes, and mediastinum: The imaged thyroid gland is normal. No lymphadenopathy in the supraclavicular, axillary, mediastinal, or hilar regions. Heart, pericardium, and thoracic vessels: The thoracic aorta and main pulmonary artery are normal in caliber. The cardiac chambers are normal in size. Mild coronary artery atherosclerotic calcifications are noted, although the study is not optimized for coronary assessment. No pericardial effusion or thickening. Bones and soft tissues: No destructive bone lesion. Chest wall is unremarkable. Upper abdomen: No abnormality in the imaged upper abdomen. Localizer images: No additional findings. 07/19/2021-08/01/2021 [employer] Please see under cardiac tab 01/03/2017 Exercise with Nuc Imaging CONCLUSION: NORMAL. ADDITIONAL COMMENTS: NORMAL EXERCISE STRESS ECG AT 90% PMHR AND 10 METS. CLINICALLY NEGATIVE FOR ISCHEMIA. The following testing reports were reviewed from the reports only: None LABS: Cholesterol, Total (mg/dL) Date Value 02/09/2024 194 06/12/2023 166 03/23/2022 175 11/16/2018 194 03/07/2014 189 08/31/2012 164 HDL Cholesterol (mg/dL) Date Value 02/09/2024 36 06/12/2023 31 03/23/2022 34 11/16/2018 42 03/07/2014 38 08/31/2012 31 LDL Cholesterol, Calculated (mg/dL) Date Value 02/09/2024 124 06/12/2023 89 03/23/2022 113 11/16/2018 141 03/07/2014 122 08/31/2012 69 Triglyceride (mg/dL) Date Value 02/09/2024 171 06/12/2023 231 03/23/2022 142 11/16/2018 55 03/07/2014 145 08/31/2012 320 AST (U/L) Date Value 12/18/2024 26 02/13/2024 24 02/09/2024 20 10/25/2021 14 12/28/2020 22 09/15/2017 19 ALT (U/L) Date Value 12/18/2024 23 02/13/2024 26 02/09/2024 23 10/25/2021 17 12/28/2020 27 09/15/2017 20 No results found for: CK TSH Date Value 12/18/2024 4.300 mIU/L 07/15/2021 3.990 uU/mL No results found for: INR No results found for: BNP NT Pro BNP (pg/mL) Date Value 12/23/2016 5 No components found for: MAGNESIU No results found for: HSCRP Hemoglobin (g/dL) Date Value 12/18/2024 17.1 12/05/2021 11.2 Hematocrit (%) Date Value 12/18/2024 50.4 12/05/2021 35.1 WBC (k/uL) Date Value 12/18/2024 6.55 12/05/2021 9.50 Platelet Count (k/uL) Date Value 12/18/2024 191 12/05/2021 125 Glucose (mg/dL) Date Value 12/18/2024 86 12/05/2021 92 Potassium (mmol/L) Date Value 12/18/2024 4.9 12/05/2021 4.5 Sodium (mmol/L) Date Value 12/18/2024 137 12/05/2021 140 Chloride (mmol/L) Date Value 12/18/2024 100 12/05/2021 104 CO2 (mmol/L) Date Value 12/18/2024 28 12/05/2021 26 Creatinine (mg/dL) Date Value 12/18/2024 0.95 12/05/2021 0.85 BUN (mg/dL) Date Value 12/18/2024 15 12/05/2021 15 Anion Gap (mmol/L) Date Value 12/18/2024 9 12/05/2021 10 Calcium (mg/dL) Date Value 12/05/2021 9.0 Calcium, Total (mg/dL) Date Value 12/18/2024 10.2 ASSESSMENT/PLAN: 1. Chest pain: Sounded somewhat atypical however the patient does have risk factors in the form of being a male about 45 and hypertension and with the demonstration of coronary calcification which merely indicates atherosclerosis of the coronary arteries, the patient did undergo a stress test in 2023 that was negative for ischemia 2. Coronary calcification: As mentioned above merely indicates coronary atherosclerosis, since the patient does not have ischemia but has coronary atherosclerosis I suggested adding aspirin 81 mg daily and Lipitor 10 mg daily and we will check a preventive cardiology visit with next visit by measuring high-sensitivity CRP and cholesterol 3. Hypertension: Blood pressure is controlled, continue current medical regimen unchanged. 4. Follow-up in 1 year. Layla Lewis MD, [facility], [facility] CC: Myah Arteaga [address] [place] [address] documented in this encounter [facility] 06-02-2025 Note HNO ID: [id number] Author: LAYLA LEWIS MD Service: ? Author Type: Physician Type: Progress Notes Filed: 06/02/2025 10:00 Note Text: [facility] Heart [facility] V[facility] [place] [facility] Strickland Department of Cardiovascular Medicine SECTION OF REGIONAL CARDIOLOGY Vic Ballesteros is a 59 year old male here today for 7 month follow up. HPI: Vic Ballesteros is a (an) 59 year old year old male who is here today for continuation of cardiac care. Currently the patient is asymptomatic heart ahumada and has no cardiovascular complaints denying chest pain, shortness of breath, orthopnea, paroxysmal nocturnal dyspnea, cyanosis, palpitations, dizziness, lightheadedness, near syncope, syncope, edema of the lower extremities, perceived recent weight gain or intermittent claudications. The patient exercises regularly 6-7 times per week with walking. There were no cardiac, blood pressure or cholesterol medication changes since the patient was last seen during a cardiac visit. PAST MEDICAL HISTORY Diagnosis Date ACNE NEC 10/13/2006 Anxiety 01/16/2023 Depression Dyslipidemia Essential hypertension 01/16/2023 GERD (gastroesophageal reflux disease) 01/16/2023 History of traumatic brain injury Hypogonadism male 10/30/1988 Left knee pain Obesity AMANDA (obstructive sleep apnea) 10/30/2005 cpap PMH - PAST MEDICAL HISTORY OF L 5 nerve injury workman comp PMH - PAST MEDICAL HISTORY OF 10/30/1988 Industrial accident fall Stroke (HCC) Thrombosed external hemorrhoid 10/26/2011 Unspecified site of spinal cord injury without evidence of spinal bone injury 01/25/2013 PAST SURGICAL HISTORY Procedure Laterality Date ABDOMINAL SURGERY HX COLONOSCOPY FLX DX W/COLLJ SPEC WHEN PFRMD 04/17/2012 repeat 10 years COLONOSCOPY SCREENING 06/09/2022 10 year f/u colonoscopy FRACTURE SURGERY JOINT REPLACEMENT HX LAPAROSCOPY SURG CHOLECYSTECTOMY 08/01/2017 Cholecystectomy, lap PAST SURGICAL HISTORY OF Right 1988 wrist fracture after work accident, states still has hardware PAST SURGICAL HISTORY OF 1988 exploratory after accident, opened from pubic bone to breastbone REPAIR NASAL SEPTUM DEFECT RPR 1ST INCAL/VNT HERNIA INCARCERATED 10/28/2019 TOTAL HIP REPLACEMENT Left 2021 VASECTOMY UNI/BI SPX W/POSTOP SEMEN EXAMS Bilateral 1999 FAMILY HISTORY Problem Relation Age of Onset Heart Mother Hypertension Mother Stroke Mother Cancer Father lung, throat other (lymphoma) Sister other (car accident) Sister None Brother None Brother SOCIAL HISTORY Social History Tobacco Use Smoking status: Never Smokeless tobacco: Never Vaping Use Vaping status: Never Used Substance Use Topics Alcohol use: Yes Alcohol/week: 1.0 standard drink of alcohol Types: 1 Cans of Beer (12oz) per week Drug use: No ALLERGIES: Penicillin G, Sulfa (Sulfonamide Antibiotics), Celebrex [Celecoxib], and Lisinopril CURRENT MEDICATIONS: Current Outpatient Medications Medication Sig testosterone (ANDROGEL) 50 mg / 5 g (1%) Apply 1 packet to affected area every other day. Alternating with 25 mg. losartan (COZAAR) 50 mg tablet Take 1 tablet by mouth once daily. pantoprazole DR (PROTONIX) 40 mg tablet TAKE 1 TABLET BY MOUTH DAILY testosterone (ANDROGEL) 25 mg/ 2.5g (1%) Apply 1 packet to affected area every other day for 180 days. Alernating witth 50 mg qod amphetamine-dextroamphetamine XR (ADDERALL XR) 10 mg capsule Take 10 mg by mouth once daily. buPROPion (WELLBUTRIN) 75 mg tablet Take 75 mg by mouth two times a day. Tadalafil (CIALIS) 20 mg tablet TAKE 1 TABLET BY MOUTH 1-2 HOURS BEFORE SEXUAL INTRACOURSE NEEDED acetaminophen (TYLENOL EXTRA STRENGTH) 500 mg tablet Take 2 tablets by mouth every 8 hours as needed for pain. traMADol (ULTRAM) 50 mg tablet CPAP Initiate Auto PAP @ 5-20 cm of water with humidification. Mask (per patient preference) optional chin strap (if indicated) , filters, tubing, humidifier and lifetime supplies. Current machine is 7 years old and needs replaced. Insurance if refusing titration sleep study. clonazePAM (KLONOPIN) 1 mg tablet TAKE 1/2 TABLET THREE TIMES A DAY NEEDED diclofenac (VOLTAREN) 1 % topical gel APPLY 4 GRAMS TO THE LOWER EXTREMITY JOINT WITH A MAXIMUM OF 16 GRAMS PER DAY lidocaine (LMX) 4 % cream Apply to affected area once daily as needed. lidocaine HCl 2 % crea Apply to affected area once daily as needed. budesonide-formoterol (SYMBICORT) 80-4.5 mcg/actuation inhaler Inhale 2 Puffs as instructed two times a day. albuterol HFA (VENTOLIN HFA) 90 mcg/actuation inhaler Inhale 2 Puffs as instructed every 4 hours as needed for wheezing/shortness of breath. albuterol (PROVENTIL) 2.5 mg /3 mL (0.083 %) nebulizer solution Use 3 mL via nebulizer every 6 hours as needed for wheezing/shortness of breath. Use over 5-15minutes. CPAP/BIPAP/OTHER autoCPAP 5-20 cmH2O DME [facility] No current facility-administered medica (more content not included)... [facility] 05-19-2025 Instructions Skyler Goodwin RN - 05/19/2025 8:46 AM EDT The following instructions are important for you related to your office visit today with the [facility] General Surgeons. Instructions After SKIN EXCISION-SUTURES You can remove the dressing in two days. If the dressing becomes soaked or had significant drainage, the dressing should be changed. If there is minor bleeding from this skin edge, you should hold pressure on the incision until the bleeding stops. If there is continued bleeding, you should contact our office immediately. You do not need to leave a dressing on the wound after two days. If the wound shows signs of redness, inflammation, or purulent drainage, you should contact our office immediately. You should keep the wound dry for the first two days. After that time, you may wash the wound with gentle soap and water. The wound should not be immersed in a pool, bathtub, or even hot tub. We prefer to check the incision and remove the stitches in our office when ready. Please make an appointment to return to our office in 3 weeks. Please do not remove the stitches yourself without approval from our office. If you note any additional difficulties, questions, or concerns, you should contact our office immediately @ [phone] and ask to be transferred to the General Surgery department. One suture from each site (2) documented in this encounter [facility] 05-19-2025 Note HNO ID: [id number] Author: SKYLER GOODWIN RN Service: ? Author Type: Registered Nurse Type: Procedures Filed: 05/19/2025 08:37 Note Text: UNIVERSAL PROTOCOL / SAFETY CHECKLIST Procedure to be Performed: Excision of skin lesion of back x 2 Sign In: A Moment of CARE was completed. Appropriate PPE (Personal Protective Equipment) worn by all providers involved with the procedure. Special equipment not required. Patient/Surrogate Stated/Verified: Patient name, Date of , Relevant allergies, and The intended procedure Time Out: Relevant labs, photos, and/or imaging studies are not applicable. Intended patient and procedure match the source document(s) (e.g. consent, HANDP, associated studies [imaging, pathology]) match the intended patient and procedure. Consent obtained and matches the intended procedure. Yes. Correct side/site is not applicable. Medications required for this procedure are verified. Fire risk assessed and is not applicable. Implants: are not applicable. Sign Out: Specimens are all correctly labeled and sent. All instruments, equipment, possible retained foreign bodies are accounted for. Yes. The post-procedure plan of care has been communicated to the patient or surrogate. [facility] 05-19-2025 Procedure note UNIVERSAL PROTOCOL / SAFETY CHECKLIST Procedure to be Performed: Excision of skin lesion of back x 2 Sign In: A Moment of CARE was completed. Appropriate PPE (Personal Protective Equipment) worn by all providers involved with the procedure. Special equipment not required. Patient/Surrogate Stated/Verified: Patient name, Date of , Relevant allergies, and The intended procedure Time Out: Relevant labs, photos, and/or imaging studies are not applicable. Intended patient and procedure match the source document(s) (e.g. consent, H&P, associated studies [imaging, pathology]) match the intended patient and procedure. Consent obtained and matches the intended procedure. Yes. Correct side/site is not applicable. Medications required for this procedure are verified. Fire risk assessed and is not applicable. Implants: are not applicable. Sign Out: Specimens are all correctly labeled and sent. All instruments, equipment, possible retained foreign bodies are accounted for. Yes. The post-procedure plan of care has been communicated to the patient or surrogate. [facility] 05-19-2025 Procedure note UNIVERSAL PROTOCOL / SAFETY CHECKLIST Procedure to be Performed: Excision of skin lesion of back x 2 Sign In: A Moment of CARE was completed. Appropriate PPE (Personal Protective Equipment) worn by all providers involved with the procedure. Special equipment not required. Patient/Surrogate Stated/Verified: Patient name, Date of , Relevant allergies, and The intended procedure Time Out: Relevant labs, photos, and/or imaging studies are not applicable. Intended patient and procedure match the source document(s) (e.g. consent, H&P, associated studies [imaging, pathology]) match the intended patient and procedure. Consent obtained and matches the intended procedure. Yes. Correct side/site is not applicable. Medications required for this procedure are verified. Fire risk assessed and is not applicable. Implants: are not applicable. Sign Out: Specimens are all correctly labeled and sent. All instruments, equipment, possible retained foreign bodies are accounted for. Yes. The post-procedure plan of care has been communicated to the patient or surrogate. documented in this encounter [facility] 05-19-2025 Note HNO ID: [id number] Author: NATALI BUTLER MD Service: ? Author Type: Physician Type: Progress Notes Filed: 05/19/2025 10:04 Note Text: Regan is here for excision of skin lesions of his back that are causing irritation to him. PROCEDURE NOTE: Description of procedure: After informed consent was obtained, patient was brought to the procedure room. Appropriate time out protocol was followed. Patient was placed in the prone position. The site of the lesion was then cleansed with a sterile surgical skin preparation. Appropriate sterile surgical drapes were placed. The skin and subcutaneous tissues at the site were then infiltrated with local anesthetic. The lower back skin lesion was approached first. A skin incision was made at the site in an elliptical fashion to entirely incorporate the lesion with a 15 blade scalpel. The incision was carried down to the subcutaneous tissues. Dissection was done to separate the skin lesion from the surrounding subcutaneous tissues. The lesion was excised sharply down to the subcutaneous tissues. The lesion was 0.7 cm in size. The tissue was then removed and placed in formalin to be forwarded to pathology for analysis. Hemostasis was controlled by pressure. The skin edges were then reapproximated with interrupted 3-0 nylon suture in a simple fashion. The mid back skin lesion was approached next. A skin incision was made at the site in an elliptical fashion to entirely incorporate the lesion with a 15 blade scalpel. The incision was carried down to the subcutaneous tissues. Dissection was done to separate the skin lesion from the surrounding subcutaneous tissues. The lesion was excised sharply down to the subcutaneous tissues. The lesion was 1 cm in size. The tissue was then removed and placed in formalin to be forwarded to pathology for analysis. Hemostasis was controlled by pressure. The skin edges were then reapproximated with interrupted 3-0 nylon suture in a simple fashion. Sterile dressing was applied. Patient tolerated procedure well. PLAN: Wound care instructions given by clinic staff. Patient to follow up for nursing visit for removal of sutures. Office will call with results of pathology. Patient to return to clinic if any signs/symptoms of infection/etc. Patient acknowledges the above. [facility] 05-19-2025 History of Present illness Narrative Regan is here for excision of skin lesions of his back that are causing irritation to him. PROCEDURE NOTE: Description of procedure: After informed consent was obtained, patient was brought to the procedure room. Appropriate time out protocol was followed. Patient was placed in the prone position. The site of the lesion was then cleansed with a sterile surgical skin preparation. Appropriate sterile surgical drapes were placed. The skin and subcutaneous tissues at the site were then infiltrated with local anesthetic. The lower back skin lesion was approached first. A skin incision was made at the site in an elliptical fashion to entirely incorporate the lesion with a 15 blade scalpel. The incision was carried down to the subcutaneous tissues. Dissection was done to separate the skin lesion from the surrounding subcutaneous tissues. The lesion was excised sharply down to the subcutaneous tissues. The lesion was 0.7 cm in size. The tissue was then removed and placed in formalin to be forwarded to pathology for analysis. Hemostasis was controlled by pressure. The skin edges were then reapproximated with interrupted 3-0 nylon suture in a simple fashion. The mid back skin lesion was approached next. A skin incision was made at the site in an elliptical fashion to entirely incorporate the lesion with a 15 blade scalpel. The incision was carried down to the subcutaneous tissues. Dissection was done to separate the skin lesion from the surrounding subcutaneous tissues. The lesion was excised sharply down to the subcutaneous tissues. The lesion was 1 cm in size. The tissue was then removed and placed in formalin to be forwarded to pathology for analysis. Hemostasis was controlled by pressure. The skin edges were then reapproximated with interrupted 3-0 nylon suture in a simple fashion. Sterile dressing was applied. Patient tolerated procedure well. PLAN: Wound care instructions given by clinic staff. Patient to follow up for nursing visit for removal of sutures. Office will call with results of pathology. Patient to return to clinic if any signs/symptoms of infection/etc. Patient acknowledges the above. documented in this encounter [facility] 05-19-2025 Note HNO ID: [id number] Author: SHERON MARK MD Service: ? Author Type: Physician Type: Progress Notes Filed: 05/19/2025 00:31 Note Text: Left before being seen.No charge. Dr Mark [facility] 05-06-2025 Telephone encounter Note The patient has been identified by name and date of : Yes Caregiver verified no other encounters exist for this prescription request: Yes Caregiver confirmed with patient/requestor that no other refills are due, in the near future, with this provider at this time: Yes The last office visit in the department: 05/01/2025 Does the patient have a future office visit with this provider/department: 06/17/2025 Requested Prescriptions Pending Prescriptions Disp Refills testosterone (ANDROGEL) 50 mg / 5 g (1%) 30 packet 0 Sig: Apply 1 packet to affected area every other day. Alternating with 25 mg. Delaney Salomon RN May 06, 2025 11:24 AM [facility] 05-06-2025 Miscellaneous Notes The patient has been identified by name and date of : Yes Caregiver verified no other encounters exist for this prescription request: Yes Caregiver confirmed with patient/requestor that no other refills are due, in the near future, with this provider at this time: Yes The last office visit in the department: 05/01/2025 Does the patient have a future office visit with this provider/department: 06/17/2025 Requested Prescriptions Pending Prescriptions Disp Refills testosterone (ANDROGEL) 50 mg / 5 g (1%) 30 packet 0 Sig: Apply 1 packet to affected area every other day. Alternating with 25 mg. Delaney Salomon RN May 06, 2025 11:24 AM documented in this encounter [facility] 05-05-2025 Note HNO ID: [id number] Author: NATALI BUTLER MD Service: ? Author Type: Physician Type: Progress Notes Filed: 05/07/2025 14:22 Note Text: Vic Ballesteros 1965 REFERRING PHYSICIAN: Tara Hilliard A* CHIEF COMPLAINT: Consult (Skin lesion on back) HPI: The patient is a 59 year old male presents with skin lesions of the back that are causing irritation to him. He has noted swelling at one of the sites. But the lesion has decreased in size. He has noted this for years. He denies drainage from the lesions. He denies history of skin cancer He denies cigarettes use: he denies diabetes. PAST MEDICAL HISTORY Diagnosis Date ACNE NEC 10/13/2006 Anxiety 01/16/2023 Depression Dyslipidemia Essential hypertension 01/16/2023 GERD (gastroesophageal reflux disease) 01/16/2023 History of traumatic brain injury Hypogonadism male 10/30/1988 Left knee pain Obesity AMANDA (obstructive sleep apnea) 10/30/2005 cpap PMH - PAST MEDICAL HISTORY OF L 5 nerve injury workman comp PMH - PAST MEDICAL HISTORY OF 10/30/1988 Industrial accident fall Stroke (HCC) Thrombosed external hemorrhoid 10/26/2011 Unspecified site of spinal cord injury without evidence of spinal bone injury 01/25/2013 PAST SURGICAL HISTORY Procedure Laterality Date ABDOMINAL SURGERY HX COLONOSCOPY FLX DX W/COLLJ SPEC WHEN PFRMD 04/17/2012 repeat 10 years COLONOSCOPY SCREENING 06/09/2022 10 year f/u colonoscopy FRACTURE SURGERY JOINT REPLACEMENT HX LAPAROSCOPY SURG CHOLECYSTECTOMY 08/01/2017 Cholecystectomy, lap PAST SURGICAL HISTORY OF Right 1988 wrist fracture after work accident, states still has hardware PAST SURGICAL HISTORY OF 1988 exploratory after accident, opened from pubic bone to breastbone REPAIR NASAL SEPTUM DEFECT RPR 1ST INCAL/VNT HERNIA INCARCERATED 10/28/2019 TOTAL HIP REPLACEMENT Left 2021 VASECTOMY UNI/BI SPX W/POSTOP SEMEN EXAMS Bilateral 1999 Current Outpatient Medications Medication Sig losartan (COZAAR) 50 mg tablet Take 1 tablet by mouth once daily. pantoprazole DR (PROTONIX) 40 mg tablet TAKE 1 TABLET BY MOUTH DAILY testosterone (ANDROGEL) 25 mg/ 2.5g (1%) Apply 1 packet to affected area every other day for 180 days. Alernating witth 50 mg qod testosterone (ANDROGEL) 50 mg / 5 g (1%) Apply 1 packet to affected area every other day. Alternating with 25 mg. diclofenac (VOLTAREN) 1 % topical gel APPLY 4 GRAMS TO THE LOWER EXTREMITY JOINT WITH A MAXIMUM OF 16 GRAMS PER DAY lidocaine (LMX) 4 % cream Apply to affected area once daily as needed. lidocaine HCl 2 % crea Apply to affected area once daily as needed. amphetamine-dextroamphetamine XR (ADDERALL XR) 10 mg capsule Take 10 mg by mouth once daily. buPROPion (WELLBUTRIN) 75 mg tablet Take 75 mg by mouth two times a day. budesonide-formoterol (SYMBICORT) 80-4.5 mcg/actuation inhaler Inhale 2 Puffs as instructed two times a day. Tadalafil (CIALIS) 20 mg tablet TAKE 1 TABLET BY MOUTH 1-2 HOURS BEFORE SEXUAL INTRACOURSE NEEDED acetaminophen (TYLENOL EXTRA STRENGTH) 500 mg tablet Take 2 tablets by mouth every 8 hours as needed for pain. traMADol (ULTRAM) 50 mg tablet albuterol (PROVENTIL) 2.5 mg /3 mL (0.083 %) nebulizer solution Use 3 mL via nebulizer every 6 hours as needed for wheezing/shortness of breath. Use over 5-15minutes. CPAP/BIPAP/OTHER autoCPAP 5-20 cmH2O DME [employer] CPAP Initiate Auto PAP @ 5-20 cm of water with humidification. Mask (per patient preference) optional chin strap (if indicated) , filters, tubing, humidifier and lifetime supplies. Current machine is 7 years old and needs replaced. Insurance if refusing titration sleep study. clonazePAM (KLONOPIN) 1 mg tablet TAKE 1/2 TABLET THREE TIMES A DAY NEEDED albuterol HFA (VENTOLIN HFA) 90 mcg/actuation inhaler Inhale 2 Puffs as instructed every 4 hours as needed for wheezing/shortness of breath. No current facility-administered medications for this visit. ALLERGIES: Penicillin G, Sulfa (Sulfonamide Antibiotics), Celebrex [Celecoxib], and Lisinopril PERSONAL HISTORY: Social History Tobacco Use Smoking status: Never Smokeless tobacco: Never Vaping Use Vaping status: Never Used Substance Use Topics Alcohol use: Yes Alcohol/week: 1.0 standard drink of alcohol Types: 1 Cans of Beer (12oz) per week Drug use: No FAMILY HISTORY Problem Relation Age of Onset Heart Mother Hypertension Mother Stroke Mother Cancer Father lung, throat other (lymphoma) Sister other (car accident) Sister None Brother None Brother REVIEW OF SYSTEMS: General - denies fevers HEENT - denies trauma/infections Resp - denies coughing up blood, denies breathing difficulties Cardiac - denies chest pain GI - denies abdominal pain, denies blood in stools, denies vomiting up of blood - denies blood in urine Endocrine - denies diabetes Psych - denies hallucinations PHYSICAL EXAMINATION: General: The patient (more content not included)... [facility] 05-05-2025 History of Present illness Narrative Vic Ballesteros 1965 REFERRING PHYSICIAN: Tara Hilliard A* CHIEF COMPLAINT: Consult (Skin lesion on back) HPI: The patient is a 59 year old male presents with skin lesions of the back that are causing irritation to him. He has noted swelling at one of the sites. But the lesion has decreased in size. He has noted this for years. He denies drainage from the lesions. He denies history of skin cancer He denies cigarettes use: he denies diabetes. PAST MEDICAL HISTORY Diagnosis Date ACNE NEC 10/13/2006 Anxiety 01/16/2023 Depression Dyslipidemia Essential hypertension 01/16/2023 GERD (gastroesophageal reflux disease) 01/16/2023 History of traumatic brain injury Hypogonadism male 10/30/1988 Left knee pain Obesity AMANDA (obstructive sleep apnea) 10/30/2005 cpap PMH - PAST MEDICAL HISTORY OF L 5 nerve injury workman comp PMH - PAST MEDICAL HISTORY OF 10/30/1988 Industrial accident fall Stroke (HCC) Thrombosed external hemorrhoid 10/26/2011 Unspecified site of spinal cord injury without evidence of spinal bone injury 01/25/2013 PAST SURGICAL HISTORY Procedure Laterality Date ABDOMINAL SURGERY HX COLONOSCOPY FLX DX W/COLLJ SPEC WHEN PFRMD 04/17/2012 repeat 10 years COLONOSCOPY SCREENING 06/09/2022 10 year f/u colonoscopy FRACTURE SURGERY JOINT REPLACEMENT HX LAPAROSCOPY SURG CHOLECYSTECTOMY 08/01/2017 Cholecystectomy, lap PAST SURGICAL HISTORY OF Right 1988 wrist fracture after work accident, states still has hardware PAST SURGICAL HISTORY OF 1988 exploratory after accident, opened from pubic bone to breastbone REPAIR NASAL SEPTUM DEFECT RPR 1ST INCAL/VNT HERNIA INCARCERATED 10/28/2019 TOTAL HIP REPLACEMENT Left 2021 VASECTOMY UNI/BI SPX W/POSTOP SEMEN EXAMS Bilateral 1999 Current Outpatient Medications Medication Sig losartan (COZAAR) 50 mg tablet Take 1 tablet by mouth once daily. pantoprazole DR (PROTONIX) 40 mg tablet TAKE 1 TABLET BY MOUTH DAILY testosterone (ANDROGEL) 25 mg/ 2.5g (1%) Apply 1 packet to affected area every other day for 180 days. Alernating witth 50 mg qod testosterone (ANDROGEL) 50 mg / 5 g (1%) Apply 1 packet to affected area every other day. Alternating with 25 mg. diclofenac (VOLTAREN) 1 % topical gel APPLY 4 GRAMS TO THE LOWER EXTREMITY JOINT WITH A MAXIMUM OF 16 GRAMS PER DAY lidocaine (LMX) 4 % cream Apply to affected area once daily as needed. lidocaine HCl 2 % crea Apply to affected area once daily as needed. amphetamine-dextroamphetamine XR (ADDERALL XR) 10 mg capsule Take 10 mg by mouth once daily. buPROPion (WELLBUTRIN) 75 mg tablet Take 75 mg by mouth two times a day. budesonide-formoterol (SYMBICORT) 80-4.5 mcg/actuation inhaler Inhale 2 Puffs as instructed two times a day. Tadalafil (CIALIS) 20 mg tablet TAKE 1 TABLET BY MOUTH 1-2 HOURS BEFORE SEXUAL INTRACOURSE NEEDED acetaminophen (TYLENOL EXTRA STRENGTH) 500 mg tablet Take 2 tablets by mouth every 8 hours as needed for pain. traMADol (ULTRAM) 50 mg tablet albuterol (PROVENTIL) 2.5 mg /3 mL (0.083 %) nebulizer solution Use 3 mL via nebulizer every 6 hours as needed for wheezing/shortness of breath. Use over 5-15minutes. CPAP/BIPAP/OTHER autoCPAP 5-20 cmH2O DME [employer] CPAP Initiate Auto PAP @ 5-20 cm of water with humidification. Mask (per patient preference) optional chin strap (if indicated) , filters, tubing, humidifier and lifetime supplies. Current machine is 7 years old and needs replaced. Insurance if refusing titration sleep study. clonazePAM (KLONOPIN) 1 mg tablet TAKE 1/2 TABLET THREE TIMES A DAY NEEDED albuterol HFA (VENTOLIN HFA) 90 mcg/actuation inhaler Inhale 2 Puffs as instructed every 4 hours as needed for wheezing/shortness of breath. No current facility-administered medications for this visit. ALLERGIES: Penicillin G, Sulfa (Sulfonamide Antibiotics), Celebrex [Celecoxib], and Lisinopril PERSONAL HISTORY: Social History Tobacco Use Smoking status: Never Smokeless tobacco: Never Vaping Use Vaping status: Never Used Substance Use Topics Alcohol use: Yes Alcohol/week: 1.0 standard drink of alcohol Types: 1 Cans of Beer (12oz) per week Drug use: No FAMILY HISTORY Problem Relation Age of Onset Heart Mother Hypertension Mother Stroke Mother Cancer Father lung, throat other (lymphoma) Sister other (car accident) Sister None Brother None Brother REVIEW OF SYSTEMS: General - denies fevers HEENT - denies trauma/infections Resp - denies coughing up blood, denies breathing difficulties Cardiac - denies chest pain GI - denies abdominal pain, denies blood in stools, denies vomiting up of blood - denies blood in urine Endocrine - denies diabetes Psych - denies hallucinations PHYSICAL EXAMINATION: General: The patient is 59 year old male, well nourished, well hydrated in no acute distress. The patient is oriented to time, place, and person. VITALS: Blood pressure 122/86, pulse 83, temperature 36.2 C (97.1 F), height 165.1 cm (5' 5), weight 119 kg (262 lb 6.4 oz), SpO2 93%. Body mass index is 43.67 kg/m . Head: Normal cephalic, atraumatic Eyes: pupils are equally round, sclera are clear/anicteric Neck is supple with no tracheal deviation Cardiac: normal heart sounds, regular Respiratory: Normal respiratory excursion and pattern. Abdominal exam: benign Back - 1 cm nodular skin lesion of back, another smaller lesion noted in close vicinity Extremities: no clubbing, cyanosis or edema. Neuro: non focal Psych: normal mood The sensitive examination was discussed with the Patient or Patient's Authorized Machine Wood Sander. As applicable, any other physician, advance practice provider, medical student, or other health professional student that will be observing or involved in the sensitive examination for educational or training purposes was discussed with the Patient or Authorized Machine Wood Sander. The Patient or Authorized Machine Wood Sander has agreed to proceed with the sensitive examination. (Sensitive examination) Assessment IMPRESSION: skin lesions causing irritation of back x 2 PLAN: I have discussed the above with the patient. I have offered excisional biopsy/removal of the above. I have explained the procedure to the patient. To be done in the office using local anesthesia I have counseled the patient as to the risks of the procedure, including but not limited to: infection, bleeding, injury to any blood vessels/nerves, scar tissue, wound infections, complications of anesthesia, etc. - the patient understands. The patient wishes to proceed. I have answered all questions to the patient s satisfaction and the patient has no further questions. I have confirmed and edited as necessary, the PFSH and ROS obtained by others. Consultation requested by Tara Hilliard for an opinion regarding patient's skin lesions of back. My final recommendations will be communicated back to the requesting physician by way of shared Medical record or letter to requesting physician via [place] mail. . Diagnoses: (L98.9) Skin lesion of back (R20.8) Dysesthesia Medical Decision Making: Risk: Low: Low risk from testing/treatment Medical Decision Making Level: 2 - Straightforward Natali Butler MD documented in this encounter [facility] 05-01-2025 Instructions Tara Hilliard APRN.CNP - 05/01/2025 9:26 AM EDT - Schedule an appointment with Dr. Clifton, general surgeon, to remove the irritated bump on your upper back; he often performs this procedure the same day. documented in this encounter [facility] 05-01-2025 Note HNO ID: [id number] Author: TARA HILLIARD APRN.CNP Service: ? Author Type: Nurse Practitioner Type: Progress Notes Filed: 05/01/2025 09:27 Note Text: This is a 59 year old male who presents today with: Patient presents with: LESION, SKIN: Lesion on back HISTORY OF PRESENT ILLNESS: Vic Ballesteros is a 59 year old male. Patient presents with: LESION, SKIN: Lesion on back Regan Ballesteros is a 59-year-old male presenting for evaluation of a lesion on the back. Neoplasm on T12 area that is midline and painful. Back Lesion: - Lesion on the spine, described as a red bump, causing significant discomfort. - Lesion is itchy sometimes and sometimes it hurts. - Regan noticed lesion recently; has had a mole in the same area for a long time. - Lesion appears irritated and wants to bleed. - Regan has attempted to dig it open without success; thought it might have seeped a little yesterday. - Wears suspenders with a strap that goes up the middle of the back; suspects this may be contributing to irritation. - Denies any other lesions in the area. - History of a fall from a roof in 1988, followed by a myelogram; Regan believes the mole has been present since then. PAST MEDICAL HISTORY: PAST MEDICAL HISTORY Diagnosis Date ACNE NEC 10/13/2006 Anxiety 01/16/2023 Depression Dyslipidemia Essential hypertension 01/16/2023 GERD (gastroesophageal reflux disease) 01/16/2023 History of traumatic brain injury Hypogonadism male 10/30/1988 Left knee pain Obesity AMANDA (obstructive sleep apnea) 10/30/2005 cpap PMH - PAST MEDICAL HISTORY OF L 5 nerve injury workman comp PMH - PAST MEDICAL HISTORY OF 10/30/1988 Industrial accident fall Stroke (HCC) Thrombosed external hemorrhoid 10/26/2011 Unspecified site of spinal cord injury without evidence of spinal bone injury 01/25/2013 PAST SURGICAL HISTORY Procedure Laterality Date ABDOMINAL SURGERY HX COLONOSCOPY FLX DX W/COLLJ SPEC WHEN PFRMD 04/17/2012 repeat 10 years COLONOSCOPY SCREENING 06/09/2022 10 year f/u colonoscopy FRACTURE SURGERY JOINT REPLACEMENT HX LAPAROSCOPY SURG CHOLECYSTECTOMY 08/01/2017 Cholecystectomy, lap PAST SURGICAL HISTORY OF Right 1988 wrist fracture after work accident, states still has hardware PAST SURGICAL HISTORY OF 1988 exploratory after accident, opened from pubic bone to breastbone REPAIR NASAL SEPTUM DEFECT RPR 1ST INCAL/VNT HERNIA INCARCERATED 10/28/2019 TOTAL HIP REPLACEMENT Left 2021 VASECTOMY UNI/BI SPX W/POSTOP SEMEN EXAMS Bilateral 1999 ALLERGIES Penicillin G, Sulfa (Sulfonamide Antibiotics), Celebrex [Celecoxib], and Lisinopril MEDICATIONS Current Outpatient Medications Medication Sig pantoprazole DR (PROTONIX) 40 mg tablet TAKE 1 TABLET BY MOUTH DAILY testosterone (ANDROGEL) 25 mg/ 2.5g (1%) Apply 1 packet to affected area every other day for 180 days. Alernating witth 50 mg qod testosterone (ANDROGEL) 50 mg / 5 g (1%) Apply 1 packet to affected area every other day. Alternating with 25 mg. diclofenac (VOLTAREN) 1 % topical gel APPLY 4 GRAMS TO THE LOWER EXTREMITY JOINT WITH A MAXIMUM OF 16 GRAMS PER DAY lidocaine (LMX) 4 % cream Apply to affected area once daily as needed. lidocaine HCl 2 % crea Apply to affected area once daily as needed. amphetamine-dextroamphetamine XR (ADDERALL XR) 10 mg capsule Take 10 mg by mouth once daily. buPROPion (WELLBUTRIN) 75 mg tablet Take 75 mg by mouth two times a day. budesonide-formoterol (SYMBICORT) 80-4.5 mcg/actuation inhaler Inhale 2 Puffs as instructed two times a day. Tadalafil (CIALIS) 20 mg tablet TAKE 1 TABLET BY MOUTH 1-2 HOURS BEFORE SEXUAL INTRACOURSE NEEDED albuterol HFA (VENTOLIN HFA) 90 mcg/actuation inhaler Inhale 2 Puffs as instructed every 4 hours as needed for wheezing/shortness of breath. acetaminophen (TYLENOL EXTRA STRENGTH) 500 mg tablet Take 2 tablets by mouth every 8 hours as needed for pain. traMADol (ULTRAM) 50 mg tablet albuterol (PROVENTIL) 2.5 mg /3 mL (0.083 %) nebulizer solution Use 3 mL via nebulizer every 6 hours as needed for wheezing/shortness of breath. Use over 5-15minutes. losartan (COZAAR) 50 mg tablet Take 1 tablet by mouth once daily. CPAP/BIPAP/OTHER autoCPAP 5-20 cmH2O DME [facility] CPAP Initiate Auto PAP @ 5-20 cm of water with humidification. Mask (per patient preference) optional chin strap (if indicated) , filters, tubing, humidifier and lifetime supplies. Current machine is 7 years old and needs replaced. Insurance if refusing titration sleep study. clonazePAM (KLONOPIN) 1 mg tablet TAKE 1/2 TABLET THREE TIMES A DAY NEEDED No current facility-administered medications for this visit. FAMILY HISTORY Problem Relation Age of Onset Heart Mother Hypertension Mother Stroke Mother Cancer Father lung, throat other (lymphoma) Sister other (car accident) Sister None Brother None Brother Social History Tobacco Use Smoking s (more content not included)... [facility] 05-01-2025 History of Present illness Narrative This is a 59 year old male who presents today with: Patient presents with: LESION, SKIN: Lesion on back HISTORY OF PRESENT ILLNESS: Vic Ballesteros is a 59 year old male. Patient presents with: LESION, SKIN: Lesion on back Regan Ballesteros is a 59-year-old male presenting for evaluation of a lesion on the back. Neoplasm on T12 area that is midline and painful. Back Lesion: - Lesion on the spine, described as a red bump, causing significant discomfort. - Lesion is itchy sometimes and sometimes it hurts. - Regan noticed lesion recently; has had a mole in the same area for a long time. - Lesion appears irritated and wants to bleed. - Regan has attempted to dig it open without success; thought it might have seeped a little yesterday. - Wears suspenders with a strap that goes up the middle of the back; suspects this may be contributing to irritation. - Denies any other lesions in the area. - History of a fall from a roof in 1988, followed by a myelogram; Regan believes the mole has been present since then. PAST MEDICAL HISTORY: PAST MEDICAL HISTORY Diagnosis Date ACNE NEC 10/13/2006 Anxiety 01/16/2023 Depression Dyslipidemia Essential hypertension 01/16/2023 GERD (gastroesophageal reflux disease) 01/16/2023 History of traumatic brain injury Hypogonadism male 10/30/1988 Left knee pain Obesity AMANDA (obstructive sleep apnea) 10/30/2005 cpap PMH - PAST MEDICAL HISTORY OF L 5 nerve injury workman comp PMH - PAST MEDICAL HISTORY OF 10/30/1988 Industrial accident fall Stroke (HCC) Thrombosed external hemorrhoid 10/26/2011 Unspecified site of spinal cord injury without evidence of spinal bone injury 01/25/2013 PAST SURGICAL HISTORY Procedure Laterality Date ABDOMINAL SURGERY HX COLONOSCOPY FLX DX W/COLLJ SPEC WHEN PFRMD 04/17/2012 repeat 10 years COLONOSCOPY SCREENING 06/09/2022 10 year f/u colonoscopy FRACTURE SURGERY JOINT REPLACEMENT HX LAPAROSCOPY SURG CHOLECYSTECTOMY 08/01/2017 Cholecystectomy, lap PAST SURGICAL HISTORY OF Right 1988 wrist fracture after work accident, states still has hardware PAST SURGICAL HISTORY OF 1988 exploratory after accident, opened from pubic bone to breastbone REPAIR NASAL SEPTUM DEFECT RPR 1ST INCAL/VNT HERNIA INCARCERATED 10/28/2019 TOTAL HIP REPLACEMENT Left 2021 VASECTOMY UNI/BI SPX W/POSTOP SEMEN EXAMS Bilateral 1999 ALLERGIES Penicillin G, Sulfa (Sulfonamide Antibiotics), Celebrex [Celecoxib], and Lisinopril MEDICATIONS Current Outpatient Medications Medication Sig pantoprazole DR (PROTONIX) 40 mg tablet TAKE 1 TABLET BY MOUTH DAILY testosterone (ANDROGEL) 25 mg/ 2.5g (1%) Apply 1 packet to affected area every other day for 180 days. Alernating witth 50 mg qod testosterone (ANDROGEL) 50 mg / 5 g (1%) Apply 1 packet to affected area every other day. Alternating with 25 mg. diclofenac (VOLTAREN) 1 % topical gel APPLY 4 GRAMS TO THE LOWER EXTREMITY JOINT WITH A MAXIMUM OF 16 GRAMS PER DAY lidocaine (LMX) 4 % cream Apply to affected area once daily as needed. lidocaine HCl 2 % crea Apply to affected area once daily as needed. amphetamine-dextroamphetamine XR (ADDERALL XR) 10 mg capsule Take 10 mg by mouth once daily. buPROPion (WELLBUTRIN) 75 mg tablet Take 75 mg by mouth two times a day. budesonide-formoterol (SYMBICORT) 80-4.5 mcg/actuation inhaler Inhale 2 Puffs as instructed two times a day. Tadalafil (CIALIS) 20 mg tablet TAKE 1 TABLET BY MOUTH 1-2 HOURS BEFORE SEXUAL INTRACOURSE NEEDED albuterol HFA (VENTOLIN HFA) 90 mcg/actuation inhaler Inhale 2 Puffs as instructed every 4 hours as needed for wheezing/shortness of breath. acetaminophen (TYLENOL EXTRA STRENGTH) 500 mg tablet Take 2 tablets by mouth every 8 hours as needed for pain. traMADol (ULTRAM) 50 mg tablet albuterol (PROVENTIL) 2.5 mg /3 mL (0.083 %) nebulizer solution Use 3 mL via nebulizer every 6 hours as needed for wheezing/shortness of breath. Use over 5-15minutes. losartan (COZAAR) 50 mg tablet Take 1 tablet by mouth once daily. CPAP/BIPAP/OTHER autoCPAP 5-20 cmH2O DME [facility] CPAP Initiate Auto PAP @ 5-20 cm of water with humidification. Mask (per patient preference) optional chin strap (if indicated) , filters, tubing, humidifier and lifetime supplies. Current machine is 7 years old and needs replaced. Insurance if refusing titration sleep study. clonazePAM (KLONOPIN) 1 mg tablet TAKE 1/2 TABLET THREE TIMES A DAY NEEDED No current facility-administered medications for this visit. FAMILY HISTORY Problem Relation Age of Onset Heart Mother Hypertension Mother Stroke Mother Cancer Father lung, throat other (lymphoma) Sister other (car accident) Sister None Brother None Brother Social History Tobacco Use Smoking status: Never Smokeless tobacco: Never Vaping Use Vaping status: Never Used Substance Use Topics Alcohol use: Yes Alcohol/week: 1.0 standard drink of alcohol Types: 1 Cans of Beer (12oz) per week Drug use: No REVIEW OF SYSTEMS Skin: (+) pruritic mid-back lesion, (+) painful mid-back lesion, (+) drainage from mid-back lesion EXAM: BP 128/78 Pulse 63 Wt 119.3 kg (263 lb) SpO2 94% BMI 42.67 kg/m PHYSICAL EXAM: GENERAL: NAD, alert and oriented SKIN: Erythematous, translucent, firm papule with two small pustules noted on the upper back along the spine; surrounding skin appears irritated. No active bleeding observed. Mole noted on lower back, no signs of irritation or abnormality. LABS: ASSESSMENT/PLAN: 1. Proteinuria, unspecified type (R80.9) 2. Neoplasm of skin (D49.2) - Lesion on the back, described as a translucent, irritated bump with two small white heads, causing discomfort and occasional pain. - Differential diagnosis includes benign skin lesion versus malignant neoplasm. - Referred to Dr. Clifton, general surgeon, for excision and biopsy. - Discussed that the lesion will be removed and sent for histopathological examination to determine if it is cancerous. - Advised that if the lesion is malignant, further treatment will be based on the biopsy results. - Patient understands and agrees with the plan. Tara Hilliard APRN.ESDRAS documented in this encounter [facility] 03-12-2025 Telephone encounter Note [facility] 10/01/24 Patient phones requesting refills as follows: Requested Prescriptions Pending Prescriptions Disp Refills pantoprazole DR (PROTONIX) 40 mg tablet [Pharmacy Med Name: Pantoprazole Sodium 40MG TBEC] 30 tablet 5 Sig: TAKE 1 TABLET BY MOUTH DAILY Please review and advise. Irasema Vazquez LPN [facility] 03-12-2025 Miscellaneous Notes [facility] 10/01/24 Patient phones requesting refills as follows: Requested Prescriptions Pending Prescriptions Disp Refills pantoprazole DR (PROTONIX) 40 mg tablet [Pharmacy Med Name: Pantoprazole Sodium 40MG TBEC] 30 tablet 5 Sig: TAKE 1 TABLET BY MOUTH DAILY Please review and advise. Irasema Vazquez LPN documented in this encounter [facility] 03-10-2025 Telephone encounter Note See Quill Content message. Lucita Davalos MA [facility] 03-10-2025 Miscellaneous Notes See Quill Content message. Lucita Davalos MA documented in this encounter [facility] 03-04-2025 Telephone encounter Note [facility] reports lidocaine 2% cream is not available but there is a lidocaine 4% cream available. Asking pcp to send new Rx for lidocaine 4% cream. Pended. [facility] 03-04-2025 Miscellaneous Notes [facility] reports lidocaine 2% cream is not available but there is a lidocaine 4% cream available. Asking pcp to send new Rx for lidocaine 4% cream. Pended. documented in this encounter [facility] 02-25-2025 Telephone encounter Note [facility] calling regarding lidocaine 4% gel script. States they only have the cream, is this ok to change? Also needs direction changed-it currently states to apply 1 tube once daily. Please send new script, if agreeable. Adina Bansal RN [facility] 02-25-2025 Miscellaneous Notes [facility] calling regarding lidocaine 4% gel script. States they only have the cream, is this ok to change? Also needs direction changed-it currently states to apply 1 tube once daily. Please send new script, if agreeable. Adina Bansal RN documented in this encounter [facility] 02-25-[address] Arteaga I don't see Voltaren cream, the only thing I see is this. Lara Maravilla MA [facility] 02-25-[address] Arteaga I don't see Voltaren cream, the only thing I see is this. Lara Maravilla MA documented in this encounter [facility] 01-01-2025 Instructions Annie Donato APRN.LEATHER SORTER - 01/01/2025 12:57 PM EST R.I.C.E. The general care of your injury includes the following: Resting, Icing, Compressing and Elevating the injured area. Remember this as RICE. REST: Limit the use of the injured body part. ICE: By applying ice to the affected area, swelling and pain can be reduced. Place some ice cubes in a re-sealable (Ziploc) bag and add some water. Put a thin washcloth between the bag and your skin. Apply the ice bag to the area for at least 20 minutes. Do this at least 4 times per day. Using the ice for longer times and more frequently is OK. NEVER APPLY ICE DIRECTLY TO THE SKIN. COMPRESS: Compression means to apply pressure around the injured area such as with a splint, cast or an ryan bandage. Compression decreases swelling and improves comfort. Compression should be tight enough to relieve swelling but not so tight as to decrease circulation. Increasing pain, numbness, tingling, or change in skin color, are all signs of decreased circulation. ELEVATE: Elevate the injured part. For example, elevate your foot by placing it on a chair while sitting, or propping it up on pillows when lying down. documented in this encounter [facility] 01-01-2025 History of Present illness Narrative Radiology Service Progress Note PATIENT NAME: Vic Ballesteros DATE OF SERVICE: January 01, 2025 TIME: 12:24 PM PATIENT IDENTITY VERIFICATION COMPLETED USING TWO (2) IDENTIFIERS: Name and Date of confirmed by patient verbally. FALL SCREENING: Has the patient had 2 falls in the last year or 1 fall with injury or currently using an Ambulatory Assistive Device (Walker, Cane, Wheelchair, Crutches, etc.)? No PATIENT GENDER DATA: Assigned male at PATIENT RELEVANT IMPLANT DATA REVIEWED: Not Applicable PATIENT PRESENTS WITH AN IMPLANTABLE OR ATTACHED LANDSCAPING SUPERVISOR: No RADIOLOGY DEPARTMENT: General X-ray: Exam(s) Completed: Rib X-Ray: Left PERIPHERAL IV DATA: Not applicable SIGNED BY: Tori Greene January 01, 2025 12:24 PM documented in this encounter [facility] 01-01-2025 Note HNO ID: [id number] Author: MINDY VIZCAINO Tech Service: ? Author Type: Technologist Type: Progress Notes Filed: 01/01/2025 12:35 Note Text: Radiology Service Progress Note PATIENT NAME: Vic Ballesteros DATE OF SERVICE: January 01, 2025 TIME: 12:24 PM PATIENT IDENTITY VERIFICATION COMPLETED USING TWO (2) IDENTIFIERS: Name and Date of confirmed by patient verbally. FALL SCREENING: Has the patient had 2 falls in the last year or 1 fall with injury or currently using an Ambulatory Assistive Device (Walker, Cane, Wheelchair, Crutches, etc.)? No PATIENT GENDER DATA: Assigned male at PATIENT RELEVANT IMPLANT DATA REVIEWED: Not Applicable PATIENT PRESENTS WITH AN IMPLANTABLE OR ATTACHED LANDSCAPING SUPERVISOR: No RADIOLOGY DEPARTMENT: General X-ray: Exam(s) Completed: Rib X-Ray: Left PERIPHERAL IV DATA: Not applicable SIGNED BY: Tori Greene January 01, 2025 12:24 PM [facility] 01-01-2025 Note HNO ID: [id number] Author: ANNIE DONATO APRN.LEATHER SORTER Service: ? Author Type: Nurse Practitioner Type: Progress Notes Filed: 01/01/2025 13:04 Note Text: This note was created using [employer]. Subjective Vic Ballesteros is a 59 year old male. 59 year old male with PMH HTN, hyperlipidemia, GERD, DDD, and adjustment disorder presents for rib pain Acute onset 6 days ago Left rib pain Endorses that he was bending over a milk crate On his knees Endorses that he pinched himself while bent over +pain +tenderness Denies CP Denies dyspnea Denies abdominal pain Denies N/V/D Denies tobacco usage Has used Tylenol with mild relief The history is provided by the patient. No speech and language clinician was used. Musculoskeletal Problem This is a new problem. The current episode started in the past 7 days. The problem occurs constantly. The problem has been unchanged. Pertinent negatives include no abdominal pain, anorexia, arthralgias, change in bowel habit, chest pain, chills, congestion, coughing, diaphoresis, fatigue, fever, headaches, joint swelling, myalgias, nausea, neck pain, numbness, rash, sore throat, swollen glands, urinary symptoms, vertigo, visual change, vomiting or weakness. Nothing aggravates the symptoms. He has tried acetaminophen for the symptoms. The treatment provided no relief. PAST MEDICAL HISTORY Diagnosis Date ACNE NEC 10/13/2006 Anxiety 01/16/2023 Depression Dyslipidemia Essential hypertension 01/16/2023 GERD (gastroesophageal reflux disease) 01/16/2023 History of traumatic brain injury Hypogonadism male 10/30/1988 Left knee pain Obesity AMANDA (obstructive sleep apnea) 10/30/2005 cpap PMH - PAST MEDICAL HISTORY OF L 5 nerve injury workman comp PMH - PAST MEDICAL HISTORY OF 10/30/1988 Industrial accident fall Stroke (HCC) Thrombosed external hemorrhoid 10/26/2011 Unspecified site of spinal cord injury without evidence of spinal bone injury 01/25/2013 PAST SURGICAL HISTORY Procedure Laterality Date ABDOMINAL SURGERY HX COLONOSCOPY FLX DX W/COLLJ SPEC WHEN PFRMD 04/17/2012 repeat 10 years COLONOSCOPY SCREENING 06/09/2022 10 year f/u colonoscopy FRACTURE SURGERY JOINT REPLACEMENT HX LAPAROSCOPY SURG CHOLECYSTECTOMY 08/01/2017 Cholecystectomy, lap PAST SURGICAL HISTORY OF Right 1988 wrist fracture after work accident, states still has hardware PAST SURGICAL HISTORY OF 1988 exploratory after accident, opened from pubic bone to breastbone REPAIR NASAL SEPTUM DEFECT RPR 1ST INCAL/VNT HERNIA INCARCERATED 10/28/2019 TOTAL HIP REPLACEMENT Left 2021 VASECTOMY UNI/BI SPX W/POSTOP SEMEN EXAMS Bilateral 1999 ALLERGIES Penicillin G, Sulfa (Sulfonamide Antibiotics), Celebrex [Celecoxib], and Lisinopril MEDICATIONS amphetamine-dextroamphetamine XR (ADDERALL XR) 10 mg capsule Take 10 mg by mouth once daily. buPROPion (WELLBUTRIN) 75 mg tablet Take 75 mg by mouth two times a day. budesonide-formoterol (SYMBICORT) 80-4.5 mcg/actuation inhaler Inhale 2 Puffs as instructed two times a day. pantoprazole DR (PROTONIX) 40 mg tablet Take 1 tablet by mouth once daily. testosterone (ANDROGEL) 50 mg / 5 g (1%) Apply 1 packet to affected area every other day. Alternating with 25 mg. Tadalafil (CIALIS) 20 mg tablet TAKE 1 TABLET BY MOUTH 1-2 HOURS BEFORE SEXUAL INTRACOURSE NEEDED albuterol HFA (VENTOLIN HFA) 90 mcg/actuation inhaler Inhale 2 Puffs as instructed every 4 hours as needed for wheezing/shortness of breath. acetaminophen (TYLENOL EXTRA STRENGTH) 500 mg tablet Take 2 tablets by mouth every 8 hours as needed for pain. traMADol (ULTRAM) 50 mg tablet albuterol (PROVENTIL) 2.5 mg /3 mL (0.083 %) nebulizer solution Use 3 mL via nebulizer every 6 hours as needed for wheezing/shortness of breath. Use over 5-15minutes. losartan (COZAAR) 50 mg tablet Take 1 tablet by mouth once daily. CPAP Initiate Auto PAP @ 5-20 cm of water with humidification. Mask (per patient preference) optional chin strap (if indicated) , filters, tubing, humidifier and lifetime supplies. Current machine is 7 years old and needs replaced. Insurance if refusing titration sleep study. clonazePAM (KLONOPIN) 1 mg tablet TAKE 1/2 TABLET THREE TIMES A DAY NEEDED predniSONE (DELTASONE) 10 mg tablet Take 4 tabs daily for 3 days, then 2 tabs daily for 3 days, then 1 tab daily for 3 days with food. testosterone (ANDROGEL) 25 mg/ 2.5g (1%) Apply 1 Packet to affected area every other day for 180 days. Alernating witth 50 mg qod CPAP/BIPAP/OTHER autoCPAP 5-20 cmH2O DME [facility] lidocaine 4 % gel Apply 1 Tube to affected area once daily. FAMILY HISTORY Problem Relation Age of Onset Heart Mother Hypertension Mother Stroke Mother Cancer Father lung, throat other (lymphoma) Sister other (car accident) Sister None Brother None Brother Social History Tobacco Use Smoking status: Never Smokeless tobacco: Never Vaping Use Vaping (more content not included)... [facility] 01-01-2025 History of Present illness Narrative This note was created using [employer]. Subjective Vic Ballesteros is a 59 year old male. 59 year old male with PMH HTN, hyperlipidemia, GERD, DDD, and adjustment disorder presents for rib pain Acute onset 6 days ago Left rib pain Endorses that he was bending over a milk crate On his knees Endorses that he pinched himself while bent over +pain +tenderness Denies CP Denies dyspnea Denies abdominal pain Denies N/V/D Denies tobacco usage Has used Tylenol with mild relief The history is provided by the patient. No speech and language clinician was used. Musculoskeletal Problem This is a new problem. The current episode started in the past 7 days. The problem occurs constantly. The problem has been unchanged. Pertinent negatives include no abdominal pain, anorexia, arthralgias, change in bowel habit, chest pain, chills, congestion, coughing, diaphoresis, fatigue, fever, headaches, joint swelling, myalgias, nausea, neck pain, numbness, rash, sore throat, swollen glands, urinary symptoms, vertigo, visual change, vomiting or weakness. Nothing aggravates the symptoms. He has tried acetaminophen for the symptoms. The treatment provided no relief. PAST MEDICAL HISTORY Diagnosis Date ACNE NEC 10/13/2006 Anxiety 01/16/2023 Depression Dyslipidemia Essential hypertension 01/16/2023 GERD (gastroesophageal reflux disease) 01/16/2023 History of traumatic brain injury Hypogonadism male 10/30/1988 Left knee pain Obesity AMANDA (obstructive sleep apnea) 10/30/2005 cpap PMH - PAST MEDICAL HISTORY OF L 5 nerve injury workman comp PMH - PAST MEDICAL HISTORY OF 10/30/1988 Industrial accident fall Stroke (HCC) Thrombosed external hemorrhoid 10/26/2011 Unspecified site of spinal cord injury without evidence of spinal bone injury 01/25/2013 PAST SURGICAL HISTORY Procedure Laterality Date ABDOMINAL SURGERY HX COLONOSCOPY FLX DX W/COLLJ SPEC WHEN PFRMD 04/17/2012 repeat 10 years COLONOSCOPY SCREENING 06/09/2022 10 year f/u colonoscopy FRACTURE SURGERY JOINT REPLACEMENT HX LAPAROSCOPY SURG CHOLECYSTECTOMY 08/01/2017 Cholecystectomy, lap PAST SURGICAL HISTORY OF Right 1988 wrist fracture after work accident, states still has hardware PAST SURGICAL HISTORY OF 1988 exploratory after accident, opened from pubic bone to breastbone REPAIR NASAL SEPTUM DEFECT RPR 1ST INCAL/VNT HERNIA INCARCERATED 10/28/2019 TOTAL HIP REPLACEMENT Left 2021 VASECTOMY UNI/BI SPX W/POSTOP SEMEN EXAMS Bilateral 1999 ALLERGIES Penicillin G, Sulfa (Sulfonamide Antibiotics), Celebrex [Celecoxib], and Lisinopril MEDICATIONS amphetamine-dextroamphetamine XR (ADDERALL XR) 10 mg capsule Take 10 mg by mouth once daily. buPROPion (WELLBUTRIN) 75 mg tablet Take 75 mg by mouth two times a day. budesonide-formoterol (SYMBICORT) 80-4.5 mcg/actuation inhaler Inhale 2 Puffs as instructed two times a day. pantoprazole DR (PROTONIX) 40 mg tablet Take 1 tablet by mouth once daily. testosterone (ANDROGEL) 50 mg / 5 g (1%) Apply 1 packet to affected area every other day. Alternating with 25 mg. Tadalafil (CIALIS) 20 mg tablet TAKE 1 TABLET BY MOUTH 1-2 HOURS BEFORE SEXUAL INTRACOURSE NEEDED albuterol HFA (VENTOLIN HFA) 90 mcg/actuation inhaler Inhale 2 Puffs as instructed every 4 hours as needed for wheezing/shortness of breath. acetaminophen (TYLENOL EXTRA STRENGTH) 500 mg tablet Take 2 tablets by mouth every 8 hours as needed for pain. traMADol (ULTRAM) 50 mg tablet albuterol (PROVENTIL) 2.5 mg /3 mL (0.083 %) nebulizer solution Use 3 mL via nebulizer every 6 hours as needed for wheezing/shortness of breath. Use over 5-15minutes. losartan (COZAAR) 50 mg tablet Take 1 tablet by mouth once daily. CPAP Initiate Auto PAP @ 5-20 cm of water with humidification. Mask (per patient preference) optional chin strap (if indicated) , filters, tubing, humidifier and lifetime supplies. Current machine is 7 years old and needs replaced. Insurance if refusing titration sleep study. clonazePAM (KLONOPIN) 1 mg tablet TAKE 1/2 TABLET THREE TIMES A DAY NEEDED predniSONE (DELTASONE) 10 mg tablet Take 4 tabs daily for 3 days, then 2 tabs daily for 3 days, then 1 tab daily for 3 days with food. testosterone (ANDROGEL) 25 mg/ 2.5g (1%) Apply 1 Packet to affected area every other day for 180 days. Alernating witth 50 mg qod CPAP/BIPAP/OTHER autoCPAP 5-20 cmH2O DME [facility] lidocaine 4 % gel Apply 1 Tube to affected area once daily. FAMILY HISTORY Problem Relation Age of Onset Heart Mother Hypertension Mother Stroke Mother Cancer Father lung, throat other (lymphoma) Sister other (car accident) Sister None Brother None Brother Social History Tobacco Use Smoking status: Never Smokeless tobacco: Never Vaping Use Vaping status: Never Used Substance Use Topics Alcohol use: Yes Alcohol/week: 1.0 standard drink of alcohol Types: 1 Cans of Beer (12oz) per week Drug use: No Review of Systems Constitutional: Negative for chills, diaphoresis, fatigue and fever. HENT: Negative for congestion and sore throat. Eyes: Negative for pain, discharge and itching. Respiratory: Negative for apnea, cough, choking and chest tightness. Cardiovascular: Negative for chest pain. Gastrointestinal: Negative for abdominal pain, anorexia, change in bowel habit, nausea and vomiting. Musculoskeletal: Negative for arthralgias, joint swelling, myalgias and neck pain. Skin: Negative for rash. Allergic/Immunologic: Negative for environmental allergies, food allergies and immunocompromised state. Neurological: Negative for vertigo, weakness, numbness and headaches. Hematological: Negative for adenopathy. Does not bruise/bleed easily. Psychiatric/Behavioral: Negative for agitation and behavioral problems. Objective BP 120/80 Pulse 60 Temp 36.2 C (97.2 F) Resp 16 Wt 121.2 kg (267 lb 3.2 oz) SpO2 94% BMI 43.35 kg/m Physical Exam Vitals and nursing note reviewed. Constitutional: General: He is not in acute distress. Appearance: Normal appearance. He is not ill-appearing, toxic-appearing or diaphoretic. HENT: Head: Normocephalic and atraumatic. Right Ear: External ear normal. Left Ear: External ear normal. Nose: Nose normal. No congestion or rhinorrhea. Mouth/Throat: Mouth: Mucous membranes are moist. Pharynx: Oropharynx is clear. No oropharyngeal exudate or posterior oropharyngeal erythema. Eyes: General: Right eye: No discharge. Left eye: No discharge. Extraocular Movements: Extraocular movements intact. Conjunctiva/sclera: Conjunctivae normal. Pupils: Pupils are equal, round, and reactive to light. Cardiovascular: Rate and Rhythm: Normal rate and regular rhythm. Pulses: Normal pulses. Heart sounds: Normal heart sounds. No murmur heard. No friction rub. No gallop. Pulmonary: Effort: Pulmonary effort is normal. No respiratory distress. Breath sounds: Normal breath sounds. No stridor. No wheezing, rhonchi or rales. Comments: Left mid axillary region with TTP noted over 5, 6, and 7th rib No flail chest Good air exchange Chest: Chest wall: No tenderness. Abdominal: General: Abdomen is flat. There is no distension. Palpations: Abdomen is soft. There is no mass. Tenderness: There is no abdominal tenderness. There is no guarding or rebound. Hernia: No hernia is present. Musculoskeletal: General: No swelling, tenderness, deformity or signs of injury. Normal range of motion. Cervical back: Normal range of motion and neck supple. No rigidity or tenderness. Right lower leg: No edema. Left lower leg: No edema. Lymphadenopathy: Cervical: No cervical adenopathy. Skin: General: Skin is warm and dry. Capillary Refill: Capillary refill takes less than 2 seconds. Coloration: Skin is not jaundiced or pale. Findings: No bruising, lesion or rash. Neurological: General: No focal deficit present. Mental Status: He is alert and oriented to person, place, and time. Cranial Nerves: No cranial nerve deficit. Sensory: No sensory deficit. Motor: No weakness. Coordination: Coordination normal. Gait: Gait normal. Deep Tendon Reflexes: Reflexes normal. Psychiatric: Mood and Affect: Mood normal. Behavior: Behavior normal. Thought Content: Thought content normal. Assessment and Plan ASSESSMENT/PLAN: 1. Rib pain on left side - ICD9: 786.50, ICD10: R07.81 (primary diagnosis) Atypical chest pain, symptoms are not consistent with cardiac ischemia due to pleuritic nature of pain, localization of the pain, and injury possible etiology include Costochondritis/chest wall pain, musculoskeletal, rib fracture, Pneumonia, Pericarditis, and - Chest X-ray today. My reading: normal, no signs of acute disease. Discussed my reading with patient. Radiologist report to follow. - XR RIBS/CHEST 3V AP RIB/OBLS/CXR LEFT 2. Muscle strain of chest wall, initial encounter - ICD9: 848.8, ICD10: S29.011A No red flags Has ultram at home he can use PRN RX Prednisone Discussed red flags F/U with PCP for continued sx Annie Donato APRN.LEATHER SORTER documented in this encounter [facility] 12-19-2024 Telephone encounter Note Patient notified of Dr Arteaga's lab results. [facility] 12-19-2024 Telephone encounter Note ----- Message from Myah Arteaga MD sent at 12/19/2024 11:28 AM EST ----- His red counts is barely high. Not enough to stop testosterone. Testosterone level is ok. Vit d is now high normal. Can stop high dosed vit d and just get 1000 -2000 units of vit d a day over the counter. Thyroid is borderline low. Recheck labs in one month [facility] 12-19-2024 Miscellaneous Notes Patient notified of Dr Arteaga's lab results. ----- Message from Myah Arteaga MD sent at 12/19/2024 11:28 AM EST ----- His red counts is barely high. Not enough to stop testosterone. Testosterone level is ok. Vit d is now high normal. Can stop high dosed vit d and just get 1000 -2000 units of vit d a day over the counter. Thyroid is borderline low. Recheck labs in one month documented in this encounter [facility] 12-18-2024 Note HNO ID: [id number] Author: MYAH ARTEAGA MD Service: ? Author Type: Physician Type: Progress Notes Filed: 12/18/2024 10:44 Note Text: Patient presents with: 6 Month Exam HPI: Patient presents today for office visit for follow up. HTN: Patient is compliant with meds Yes. Bp is well controlled. Monitors bp at home: Yes. Denies side effects: Yes. Chest pain: No. Dyspnea: No. Edema: No. Palpitations: No. Syncope: No. Headache: No. Dizziness: No. Still with some high pitched wheezing since COVID. Not using inhalers though. Offered to repeat pfts Has seen pulmonary. Seeing nephrology for proteinuria. Hypogonadism: continues on meds. Feels very good on current dose. No shaking Slight irritability in am. We adjusted it down. Since it was high. AMANDA:benefiting from its use. Follows with pain management and psych. Using sleep apnea machine. Benefiting from its use. See previous mri: ? 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 No adjacent intramedullary signal abnormality. 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 No other mass or pathologic intradural enhancement. Mild degenerative changes of the lumbar spine. Normal morphology and signal intensity of the remaining visualized thoracic cord Offered to have him see neurosurgery or consider follow up. He will consider. Has not changed in years. MEDICATIONS: Current Outpatient Medications Medication Sig amphetamine-dextroamphetamine XR (ADDERALL XR) 10 mg capsule Take 10 mg by mouth once daily. buPROPion (WELLBUTRIN) 75 mg tablet Take 75 mg by mouth two times a day. pantoprazole DR (PROTONIX) 40 mg tablet Take 1 tablet by mouth once daily. testosterone (ANDROGEL) 50 mg / 5 g (1%) Apply 1 packet to affected area every other day. Alternating with 25 mg. ergocalciferol 50,000 unit capsule (VITAMIN D2, DRISDOL) Take 1 capsule by mouth one time a week. Tadalafil (CIALIS) 20 mg tablet TAKE 1 TABLET BY MOUTH 1-2 HOURS BEFORE SEXUAL INTRACOURSE NEEDED losartan (COZAAR) 50 mg tablet Take 1 tablet by mouth once daily. testosterone (ANDROGEL) 25 mg/ 2.5g (1%) Apply 1 Packet to affected area every other day for 180 days. Alernating witth 50 mg qod CPAP Initiate Auto PAP @ 5-20 cm of water with humidification. Mask (per patient preference) optional chin strap (if indicated) , filters, tubing, humidifier and lifetime supplies. Current machine is 7 years old and needs replaced. Insurance if refusing titration sleep study. budesonide-formoterol (SYMBICORT) 80-4.5 mcg/actuation inhaler Inhale 2 Puffs as instructed two times a day. albuterol HFA (VENTOLIN HFA) 90 mcg/actuation inhaler Inhale 2 Puffs as instructed every 4 hours as needed for wheezing/shortness of breath. acetaminophen (TYLENOL EXTRA STRENGTH) 500 mg tablet Take 2 tablets by mouth every 8 hours as needed for pain. traMADol (ULTRAM) 50 mg tablet albuterol (PROVENTIL) 2.5 mg /3 mL (0.083 %) nebulizer solution Use 3 mL via nebulizer every 6 hours as needed for wheezing/shortness of breath. Use over 5-15minutes. CPAP/BIPAP/OTHER autoCPAP 5-20 cmH2O DME [facility] clonazePAM (KLONOPIN) 1 mg tablet TAKE 1/2 TABLET THREE TIMES A DAY NEEDED lidocaine 4 % gel Apply 1 Tube to affected area once daily. No current facility-administered medications for this visit. ALLERGIES: ALLERGIES Allergen Reactions Penicillin G Hives Sulfa (Sulfonamide * Hives Celebrex [Celecoxib] Rash Lisinopril Intolerance Cough PAST MEDICAL HISTORY Diagnosis Date ACNE NEC 10/13/2006 Anxiety 01/16/2023 Depression Dyslipidemia Essential hypertension 01/16/2023 GERD (gastroesophageal reflux disease) 01/16/2023 History of traumatic brain injury Hypogonadism male 10/30/1988 Left knee pain Obesity AMANDA (obstructive sleep apnea) 10/30/2005 cpap PMH - PAST MEDICAL HISTORY OF L 5 nerve injury workman comp PMH - PAST MEDICAL HISTORY OF 10/30/1988 Industrial accident fall Stroke (HCC) Thrombosed external hemorrhoid 10/26/2011 Unspecified site of spinal cord injury without evidence of spinal bone injury 01/25/2013 PAST SURGICAL HISTORY Procedure Laterality Date ABDOMINAL SURGERY HX COLONOSCOPY FLX DX W/COLLJ SPEC WHEN PFRMD 04/17/2012 repeat 10 years COLONOSCOPY SCREENING 06/09/2022 10 year f/u colonoscopy FRACTURE SURGERY JOINT REPLACEMENT HX LAPAROSCOPY SURG CHOLECYSTECTOMY 08/01/2017 Cholecystectomy, lap PAST SURGICAL HISTORY OF Right 1988 wrist fracture after work accident, states still has hardware PAST SURGICAL HISTORY OF 1988 exploratory after accident, opened from pubic bone to breastbone REPAIR NASAL SEPTUM DEFECT RPR 1ST INCAL/VNT HERNIA INCARCERATED 10/28/2019 TOTAL HIP REPLACEMENT Left 2021 V (more content not included)... [facility] 12-18-2024 History of Present illness Narrative Patient presents with: 6 Month Exam HPI: Patient presents today for office visit for follow up. HTN: Patient is compliant with meds Yes. Bp is well controlled. Monitors bp at home: Yes. Denies side effects: Yes. Chest pain: No. Dyspnea: No. Edema: No. Palpitations: No. Syncope: No. Headache: No. Dizziness: No. Still with some high pitched wheezing since COVID. Not using inhalers though. Offered to repeat pfts Has seen pulmonary. Seeing nephrology for proteinuria. Hypogonadism: continues on meds. Feels very good on current dose. No shaking Slight irritability in am. We adjusted it down. Since it was high. AMANDA:benefiting from its use. Follows with pain management and psych. Using sleep apnea machine. Benefiting from its use. See previous mri: ? 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 No adjacent intramedullary signal abnormality. 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 No other mass or pathologic intradural enhancement. Mild degenerative changes of the lumbar spine. Normal morphology and signal intensity of the remaining visualized thoracic cord Offered to have him see neurosurgery or consider follow up. He will consider. Has not changed in years. MEDICATIONS: Current Outpatient Medications Medication Sig amphetamine-dextroamphetamine XR (ADDERALL XR) 10 mg capsule Take 10 mg by mouth once daily. buPROPion (WELLBUTRIN) 75 mg tablet Take 75 mg by mouth two times a day. pantoprazole DR (PROTONIX) 40 mg tablet Take 1 tablet by mouth once daily. testosterone (ANDROGEL) 50 mg / 5 g (1%) Apply 1 packet to affected area every other day. Alternating with 25 mg. ergocalciferol 50,000 unit capsule (VITAMIN D2, DRISDOL) Take 1 capsule by mouth one time a week. Tadalafil (CIALIS) 20 mg tablet TAKE 1 TABLET BY MOUTH 1-2 HOURS BEFORE SEXUAL INTRACOURSE NEEDED losartan (COZAAR) 50 mg tablet Take 1 tablet by mouth once daily. testosterone (ANDROGEL) 25 mg/ 2.5g (1%) Apply 1 Packet to affected area every other day for 180 days. Alernating witth 50 mg qod CPAP Initiate Auto PAP @ 5-20 cm of water with humidification. Mask (per patient preference) optional chin strap (if indicated) , filters, tubing, humidifier and lifetime supplies. Current machine is 7 years old and needs replaced. Insurance if refusing titration sleep study. budesonide-formoterol (SYMBICORT) 80-4.5 mcg/actuation inhaler Inhale 2 Puffs as instructed two times a day. albuterol HFA (VENTOLIN HFA) 90 mcg/actuation inhaler Inhale 2 Puffs as instructed every 4 hours as needed for wheezing/shortness of breath. acetaminophen (TYLENOL EXTRA STRENGTH) 500 mg tablet Take 2 tablets by mouth every 8 hours as needed for pain. traMADol (ULTRAM) 50 mg tablet albuterol (PROVENTIL) 2.5 mg /3 mL (0.083 %) nebulizer solution Use 3 mL via nebulizer every 6 hours as needed for wheezing/shortness of breath. Use over 5-15minutes. CPAP/BIPAP/OTHER autoCPAP 5-20 cmH2O DME [employer] clonazePAM (KLONOPIN) 1 mg tablet TAKE 1/2 TABLET THREE TIMES A DAY NEEDED lidocaine 4 % gel Apply 1 Tube to affected area once daily. No current facility-administered medications for this visit. ALLERGIES: ALLERGIES Allergen Reactions Penicillin G Hives Sulfa (Sulfonamide * Hives Celebrex [Celecoxib] Rash Lisinopril Intolerance Cough PAST MEDICAL HISTORY Diagnosis Date ACNE NEC 10/13/2006 Anxiety 01/16/2023 Depression Dyslipidemia Essential hypertension 01/16/2023 GERD (gastroesophageal reflux disease) 01/16/2023 History of traumatic brain injury Hypogonadism male 10/30/1988 Left knee pain Obesity AMANDA (obstructive sleep apnea) 10/30/2005 cpap PMH - PAST MEDICAL HISTORY OF L 5 nerve injury workman comp PMH - PAST MEDICAL HISTORY OF 10/30/1988 Industrial accident fall Stroke (HCC) Thrombosed external hemorrhoid 10/26/2011 Unspecified site of spinal cord injury without evidence of spinal bone injury 01/25/2013 PAST SURGICAL HISTORY Procedure Laterality Date ABDOMINAL SURGERY HX COLONOSCOPY FLX DX W/COLLJ SPEC WHEN PFRMD 04/17/2012 repeat 10 years COLONOSCOPY SCREENING 06/09/2022 10 year f/u colonoscopy FRACTURE SURGERY JOINT REPLACEMENT HX LAPAROSCOPY SURG CHOLECYSTECTOMY 08/01/2017 Cholecystectomy, lap PAST SURGICAL HISTORY OF Right 1988 wrist fracture after work accident, states still has hardware PAST SURGICAL HISTORY OF 1988 exploratory after accident, opened from pubic bone to breastbone REPAIR NASAL SEPTUM DEFECT RPR 1ST INCAL/VNT HERNIA INCARCERATED 10/28/2019 TOTAL HIP REPLACEMENT Left 2021 VASECTOMY UNI/BI SPX W/POSTOP SEMEN EXAMS Bilateral 1999 FAMILY HISTORY Problem Relation Age of Onset Heart Mother Hypertension Mother Stroke Mother Cancer Father lung, throat other (lymphoma) Sister other (car accident) Sister None Brother None Brother Social History Tobacco Use Smoking status: Never Smokeless tobacco: Never Vaping Use Vaping status: Never Used Substance Use Topics Alcohol use: Yes Alcohol/week: 1.0 standard drink of alcohol Types: 1 Cans of Beer (12oz) per week Drug use: No Reviewed current medications, allergies, past medical history, surgical history, family history and social history today. REVIEW OF SYSTEMS As above. HEALTH MAINTENANCE: Reviewed health maintenance issues today and recommended the following in detail. BP Controlled (<130/80) Never done Pneumococcal Vaccine: 50+(1 of 1 - PCV) Never done Covid-19 Vaccine( season) due on 06/30/2024 VITALS: BP 124/78 Pulse 62 Wt 121.6 kg (268 lb) SpO2 94% BMI 43.48 kg/m Last 4 Encounter Wt Readings: Date: Wt: 12/18/2024 121.6 kg (268 lb) 10/03/2024 122 kg (269 lb) 10/01/2024 117.9 kg (260 lb) 08/15/2024 121.1 kg (267 lb) PHYSICAL EXAMINATION: General appearance: Well appearing, alert, in no acute distress, well-hydrated, well nourished. Skin: Skin color, texture, turgor normal, no suspicious rashes or lesions Head: Normocephalic, no masses, lesions, tenderness or abnormalities Eyes: Anicteric sclera. Pupils are equally round and reactive to light. Extraocular movements are intact. Lungs: Lungs clear to auscultation. No wheezing, rhonchi, rales Heart: RRR without murmur, gallop, or rubs. No ectopy Abdomen: Normal abdominal exam, Abdomen soft, non-tender. Bowel sounds normal. No masses, organomegaly Extremities: No deformities, edema, skin discoloration, clubbing or cyanosis. Good capillary refill. ASSESSMENT/PLAN: 1. Essential hypertension - ICD9: 401.9, ICD10: I10 (primary diagnosis) - Controlled - Continue current medications 2. Mixed hyperlipidemia - ICD9: 272.2, ICD10: E78.2 - Controlled - Continue current medications 3. AMANDA (obstructive sleep apnea) - ICD9: 327.23, ICD10: G47.33 Benefiting from its use. 4. Gastroesophageal reflux disease, unspecified whether esophagitis present - ICD9: 530.81, ICD10: K21.9 -stable. 5. Proteinuria, unspecified type - ICD9: 791.0, ICD10: R80.9 - per nephrology 6. Morbid obesity (HCC) - ICD9: 278.01, ICD10: E66.01 - work on diet. 7. Mass of spine - ICD9: 733.99, ICD10: M89.8X8 - declines immediate follow up 8. Screening for prostate cancer - ICD9: V76.44, ICD10: Z12.5 - PSA/PROSTATE SPECIFIC ANTIGEN SCREENING 9. Secondary male hypogonadism - ICD9: 257.2, ICD10: E29. - COMPLETE BLOOD COUNT AND DIFFERENTIAL - TESTOSTERONE, TOTAL BY IMMUNOASSAY (ADULT MALES, OR INDIVIDUALS ON TESTOSTERONE THERAPY) - COMPREHENSIVE METABOLIC PANEL 10. Fatigue, unspecified type - ICD9: 780.79, ICD10: R53.83 - THYROID STIMULATING HORMONE 11. Fatty liver - ICD9: 571.8, ICD10: K76.0 - follow labs. 12. Vitamin D deficiency - ICD9: 268.9, ICD10: E55.9 - VITAMIN D 25 HYDROXY 13. Need for vaccination - ICD9: V05.9, ICD10: Z23 - PNEUMOCOCCAL VACCINE, 20 VALENT (PREVNAR 20) Myah Arteaga MD documented in this encounter [facility] 10-15-2024 History of Present illness Narrative RADIOLOGY SERVICE PROGRESS NOTE SERVICE DATE: 10/15/2024 SERVICE TIME: 11:25 AM PATIENT IDENTITY VERIFICATION COMPLETED USING TWO (2) STANDARD IDENTIFIERS: Name and Date of confirmed by patient verbally FALL SCREENING: Has the patient had 2 falls in the last year or 1 fall with injury or currently using an Ambulatory Assistive Device (Walker, Cane, Wheelchair, Crutches, etc.)? No PATIENT GENDER DATA: .male : No ALLERGIES: Reviewed and unchanged MEDICATIONS REVIEWED: No PATIENT RELEVANT IMPLANT DATA REVIEWED: Not Applicable PATIENT PRESENTS WITH AN IMPLANTABLE OR ATTACHED LANDSCAPING SUPERVISOR: No DIAGNOSTIC CT PERFORMED: No IV SITE: Ambulatory: A peripheral IV was started in the Left antecubital site with a Angio cath: 24 gauge. POST EXAM PIV STATUS: Discontinued PROCEDURE TYPE: NM Stress: 11.8 mCi [id number] was administered IV for Rest Imaging at 10:26 AM by JESSICA Paz. 31.3 mCi [id number]-Fdhvlcd was administered IV for Stress Imaging at 11:20 AM by JESSICA Paz. PATIENT DISCHARGED TO: Ambulatory patient, left [place] department area. Is this a therapy: No A Diagnostic radioactive procedure has taken place, with no further precautions necessary other than routine body substance precautions. More information regarding radiation safety can be found using this link: [email or web address] [email or web address] SIGNATURE: JASPAL Paz) PATIENT NAME: Vic Ballesteros DATE: October 15, 2024 TIME: 11:25 AM PAGER/CONTACT #: documented in this encounter [facility] 10-15-2024 Note HNO ID: [id number] Author: YOUSUF VALE RT (R) Service: Nuclear Medicine Author Type: Technologist Type: Progress Notes Filed: 10/15/2024 11:26 Note Text: RADIOLOGY SERVICE PROGRESS NOTE SERVICE DATE: 10/15/2024 SERVICE TIME: 11:25 AM PATIENT IDENTITY VERIFICATION COMPLETED USING TWO (2) STANDARD IDENTIFIERS: Name and Date of confirmed by patient verbally FALL SCREENING: Has the patient had 2 falls in the last year or 1 fall with injury or currently using an Ambulatory Assistive Device (Walker, Cane, Wheelchair, Crutches, etc.)? No PATIENT GENDER DATA: .male : No ALLERGIES: Reviewed and unchanged MEDICATIONS REVIEWED: No PATIENT RELEVANT IMPLANT DATA REVIEWED: Not Applicable PATIENT PRESENTS WITH AN IMPLANTABLE OR ATTACHED LANDSCAPING SUPERVISOR: No DIAGNOSTIC CT PERFORMED: No IV SITE: Ambulatory: A peripheral IV was started in the Left antecubital site with a Angio cath: 24 gauge. POST EXAM PIV STATUS: Discontinued PROCEDURE TYPE: TX Stress: 11.8 mCi [id number]-Fvajkiv was administered IV for Rest Imaging at 10:26 AM by JESSICA Paz. 31.3 mCi [id number]-Bebvuxk was administered IV for Stress Imaging at 11:20 AM by JESSICA Paz. PATIENT DISCHARGED TO: Ambulatory patient, left [place] department area. Is this a therapy: No A Diagnostic radioactive procedure has taken place, with no further precautions necessary other than routine body substance precautions. More information regarding radiation safety can be found using this link: [email or web address]%20Nuclear%20Medicine [email or web address] SIGNATURE: RT Jackson(R) PATIENT NAME: Vic Ballesteros DATE: October 15, 2024 TIME: 11:25 AM PAGER/CONTACT #: [facility] 10-03-2024 History of Present illness Narrative Images from the original note were not included. [facility] [place] [facility] Department of Cardiovascular Medicine SECTION OF REGIONAL CARDIOLOGY Consultation requested by Lacy Kessler MD for an opinion regarding Vic Ballesteros. My final recommendations will be communicated back to the requesting physician by way of shared Medical record or letter to requesting physician via US mail. CC: coronary artery calcifications HPI: Vic Ballesteros is a (an) 58 year old male who is here today for coronary artery calcifications. The patient has repeated episodes of chest pain described as left-sided pressure sometimes with exertion sometimes at rest usually lasting less than 5 minutes with no radiation and no accompanying symptoms, patient recently had a CT that showed coronary calcification as well, other than that, currently the patient has no other cardiovascular complaints denying shortness of breath, orthopnea, paroxysmal nocturnal dyspnea, cyanosis, palpitations, dizziness, lightheadedness, near syncope, syncope, edema of the lower extremities, perceived recent weight gain or intermittent claudications. The patient exercises minimally PAST MEDICAL HISTORY Diagnosis Date ACNE NEC 10/13/2006 Anxiety 01/16/2023 Depression Dyslipidemia Essential hypertension 01/16/2023 GERD (gastroesophageal reflux disease) 01/16/2023 History of traumatic brain injury Hypogonadism male 10/30/1988 Left knee pain Obesity AMANDA (obstructive sleep apnea) 10/30/2005 cpap PMH - PAST MEDICAL HISTORY OF L 5 nerve injury workman comp PMH - PAST MEDICAL HISTORY OF 10/30/1988 Industrial accident fall Stroke (HCC) Thrombosed external hemorrhoid 10/26/2011 Unspecified site of spinal cord injury without evidence of spinal bone injury 01/25/2013 PAST SURGICAL HISTORY Procedure Laterality Date ABDOMINAL SURGERY HX COLONOSCOPY FLX DX W/COLLJ SPEC WHEN PFRMD 04/17/2012 repeat 10 years COLONOSCOPY SCREENING 06/09/2022 10 year f/u colonoscopy FRACTURE SURGERY JOINT REPLACEMENT HX LAPAROSCOPY SURG CHOLECYSTECTOMY 08/01/2017 Cholecystectomy, lap PAST SURGICAL HISTORY OF Right 1988 wrist fracture after work accident, states still has hardware PAST SURGICAL HISTORY OF 1988 exploratory after accident, opened from pubic bone to breastbone REPAIR NASAL SEPTUM DEFECT RPR 1ST INCAL/VNT HERNIA INCARCERATED 10/28/2019 TOTAL HIP REPLACEMENT Left 2021 VASECTOMY UNI/BI SPX W/POSTOP SEMEN EXAMS Bilateral 1999 FAMILY HISTORY Problem Relation Age of Onset Heart Mother Hypertension Mother Stroke Mother Cancer Father lung, throat other (lymphoma) Sister other (car accident) Sister None Brother None Brother SOCIAL HISTORY Social History Tobacco Use Smoking status: Never Smokeless tobacco: Never Vaping Use Vaping status: Never Used Substance Use Topics Alcohol use: Yes Alcohol/week: 1.0 standard drink of alcohol Types: 1 Cans of Beer (12oz) per week Drug use: No ALLERGIES: Penicillin G, Sulfa (Sulfonamide Antibiotics), Celebrex [Celecoxib], and Lisinopril CURRENT MEDICATIONS: Current Outpatient Medications Medication Sig Dispense Refill amphetamine-dextroamphetamine XR (ADDERALL XR) 10 mg capsule Take 10 mg by mouth once daily. buPROPion (WELLBUTRIN) 75 mg tablet Take 75 mg by mouth two times a day. budesonide-formoterol (SYMBICORT) 80-4.5 mcg/actuation inhaler Inhale 2 Puffs as instructed two times a day. [address] (PROTONIX) 40 mg tablet Take 1 tablet by mouth once daily. 30 tablet 5 testosterone (ANDROGEL) 50 mg / 5 g (1%) Apply 1 packet to affected area every other day. Alternating with 25 mg. 30 Packet 0 ergocalciferol 50,000 unit capsule (VITAMIN D2, DRISDOL) Take 1 capsule by mouth one time a week. 12 capsule 1 Tadalafil (CIALIS) 20 mg tablet TAKE 1 TABLET BY MOUTH 1-2 HOURS BEFORE SEXUAL INTRACOURSE NEEDED 6 tablet 17 albuterol HFA (VENTOLIN HFA) 90 mcg/actuation inhaler Inhale 2 Puffs as instructed every 4 hours as needed for wheezing/shortness of breath. 3 Each 1 acetaminophen (TYLENOL EXTRA STRENGTH) 500 mg tablet Take 2 tablets by mouth every 8 hours as needed for pain. 180 tablet 3 traMADol (ULTRAM) 50 mg tablet albuterol (PROVENTIL) 2.5 mg /3 mL (0.083 %) nebulizer solution Use 3 mL via nebulizer every 6 hours as needed for wheezing/shortness of breath. Use over 5-15minutes. 180 mL 1 losartan (COZAAR) 50 mg tablet Take 1 tablet by mouth once daily. 90 tablet 4 testosterone (ANDROGEL) 25 mg/ 2.5g (1%) Apply 1 Packet to affected area every other day for 180 days. Alernating witth 50 mg qod 225 g 0 CPAP/BIPAP/OTHER autoCPAP 5-20 cmH2O DME [employer] 1 Each 0 CPAP Initiate Auto PAP @ 5-20 cm of water with humidification. Mask (per patient preference) optional chin strap (if indicated) , filters, tubing, humidifier and lifetime supplies. Current machine is 7 years old and needs replaced. Insurance if refusing titration sleep study. 1 Each 0 clonazePAM (KLONOPIN) 1 mg tablet TAKE 1/2 TABLET THREE TIMES A DAY NEEDED 45 tablet 0 lidocaine 4 % gel Apply 1 Tube to affected area once daily. No current facility-administered medications for this visit. ROS: Card: See present history. Pulm: Negative for cough, hemoptysis, wheezing, COPD, dyspnea or shortness of breath Gastro: No nausea, vomiting, or diarrhea GenUr: No history of dysuria, frequency or incontinence Endo: Negative for cold or heat intolerance, polyuria or polydipsia. Neuro: no focal weakness, focal sensory loss, headache, visual changes, seizure activity, ataxia, speech/language loss. Musculoskeletal: Negative for joint or muscle pain, back pain, or swelling. Infect: no fevers, chills, rigors or night sweats. Skin: Negative for lesions, rash, and itching. Heme: Negative for prolonged bleeding, bruising easily or swollen nodes. The remainder of the review of systems is negative. PHYSICAL EXAMINATION: GENERAL: alert cooperative, pleasant oriented x 3 (self, time and place) in no acute distress BP 130/70 Pulse 63 Ht 167.2 cm (5' 5.83) Wt 122 kg (269 lb) BMI 43.65 kg/m Last 3 Encounter BP Readings: Date: BP: 10/01/2024 130/82 08/06/2024 148/66 07/23/2024 132/70 Last 3 Encounter Pulse Readings: Date: Pulse: 10/01/2024 62 08/15/2024 72 08/06/2024 66 Last 3 Encounter Wt Readings: Date: Wt: 10/01/2024 117.9 kg (260 lb) 08/15/2024 121.1 kg (267 lb) 08/06/2024 120.2 kg (265 lb) SKIN: warm, dry, no rash. NECK: supple, no palpable masses, no JVD, carotids well felt, no bruits. CARDIAC: Addison palpable in the 5th intercostal space mid clavicular line, normal S1 and S2, no murmurs, gallops, or rubs. CHEST: Normal respiratory efforts, lungs clear to auscultation bilaterally. ABDOMEN: Soft, no tenderness, rigidity, or masses. No palpable liver or spleen. Normal bowel sounds, no bruits. NEURO: intact cranial nerves II through XII, no motor or sensory deficits in all 4 extremities. EXTREMITIES: No cyanosis, clubbing, or edema. Peripheral pulses well felt. CARDIAC (& OTHER IMPORTANT) TESTING: The following testing (including images and tracings) were personally reviewed by myself: 07/30/2024 CT Chest RESULT: Limitations: None. Lines, tubes, and devices: None. Lung parenchyma and airways: No consolidation. 5 mm nodule right lower lobe (7:138). The central airways are patent. Pleural space: No pleural effusion. No pleural thickening. Lower neck, lymph nodes, and mediastinum: The imaged thyroid gland is normal. No lymphadenopathy in the supraclavicular, axillary, mediastinal, or hilar regions. Heart, pericardium, and thoracic vessels: The thoracic aorta and main pulmonary artery are normal in caliber. The cardiac chambers are normal in size. Mild coronary artery atherosclerotic calcifications are noted, although the study is not optimized for coronary assessment. No pericardial effusion or thickening. Bones and soft tissues: No destructive bone lesion. Chest wall is unremarkable. Upper abdomen: No abnormality in the imaged upper abdomen. Localizer images: No additional findings. 07/19/2021-08/01/2021 [employer] Please see under cardiac tab 01/03/2017 Exercise with Nuc Imaging CONCLUSION: NORMAL. ADDITIONAL COMMENTS: NORMAL EXERCISE STRESS ECG AT 90% PMHR AND 10 METS. CLINICALLY NEGATIVE FOR ISCHEMIA. The following testing reports were reviewed from the reports only: None. LABS: Cholesterol, Total (mg/dL) Date Value 02/09/2024 194 06/12/2023 166 03/23/2022 175 11/16/2018 194 03/07/2014 189 08/31/2012 164 HDL Cholesterol (mg/dL) Date Value 02/09/2024 36 06/12/2023 31 03/23/2022 34 11/16/2018 42 03/07/2014 38 08/31/2012 31 LDL Cholesterol (mg/dL) Date Value 02/09/2024 124 06/12/2023 89 03/23/2022 113 11/16/2018 141 03/07/2014 122 08/31/2012 69 Triglyceride (mg/dL) Date Value 02/09/2024 171 06/12/2023 231 03/23/2022 142 11/16/2018 55 03/07/2014 145 08/31/2012 320 AST (U/L) Date Value 02/13/2024 24 02/09/2024 20 06/12/2023 34 10/25/2021 14 12/28/2020 22 09/15/2017 19 ALT (U/L) Date Value 02/13/2024 26 02/09/2024 23 06/12/2023 40 10/25/2021 17 12/28/2020 27 09/15/2017 20 No results found for: CK TSH Date Value 03/23/2022 4.100 mIU/L 07/15/2021 3.990 uU/mL No results found for: INR No results found for: BNP NT Pro BNP (pg/mL) Date Value 12/23/2016 5 No components found for: MAGNESIU No results found for: HSCRP Hemoglobin (g/dL) Date Value 06/14/2024 16.4 12/05/2021 11.2 Hematocrit (%) Date Value 06/14/2024 47.4 12/05/2021 35.1 WBC (k/uL) Date Value 06/14/2024 5.41 12/05/2021 9.50 Platelet Count (k/uL) Date Value 06/14/2024 173 12/05/2021 125 Glucose (mg/dL) Date Value 09/02/2024 91 12/05/2021 92 Potassium (mmol/L) Date Value 09/02/2024 4.5 12/05/2021 4.5 Sodium (mmol/L) Date Value 09/02/2024 140 12/05/2021 140 Chloride (mmol/L) Date Value 09/02/2024 104 12/05/2021 104 CO2 (mmol/L) Date Value 09/02/2024 23 12/05/2021 26 Creatinine (mg/dL) Date Value 09/02/2024 0.81 12/05/2021 0.85 BUN (mg/dL) Date Value 09/02/2024 12 12/05/2021 15 Anion Gap (mmol/L) Date Value 09/02/2024 13 12/05/2021 10 Calcium (mg/dL) Date Value 12/05/2021 9.0 Calcium, Total (mg/dL) Date Value 09/02/2024 9.7 ASSESSMENT/PLAN: 1. Chest pain: Sounds somewhat atypical however the patient does have risk factors in the form of being a male about 45 and hypertension and with the demonstration of coronary calcification which merely indicates atherosclerosis of the coronary arteries I will bring him back for a pharmacologic myocardial perfusion scan to evaluate the current status of his coronary artery disease and rule out the possibility of ischemia. 2. Coronary calcification: As mentioned above merely indicates coronary atherosclerosis, if the patient does not have ischemia we will check a lipid profile and high-sensitivity CRP to be able to calculate his risk to evaluate if he needs to be on statins together with aspirin 3. Hypertension: Blood pressure is controlled, continue current medical regimen unchanged. 4. Follow-up in 4 months. The above information was discussed at length with the patient including review of all laboratory, ultrasound and radiographic studies (if these were done and available at the time), along with benefits/risks of various management options available to the patient. He/She was given ample time to ask questions and at the conclusion of the visit the patient clearly understood the plan of management, had no further questions and was satisfied with the time and care provided. The patient was instructed to call if any questions arise or if the medical condition changes prior to the follow up visit. Layla Lewis MD, FAC, FASNC CC: Myah Maria Luisa Millero [address] [place] [address] documented in this encounter [facility] 10-03-2024 Note HNO ID: [id number] Author: LAYLA LEWIS MD Service: ? Author Type: Physician Type: Progress Notes Filed: 10/03/2024 11:34 Note Text: [facility] [place] Kit Strickland Department of Cardiovascular Medicine SECTION OF REGIONAL CARDIOLOGY Consultation requested by Lacy Kessler MD for an opinion regarding Vic Ballesteros. My final recommendations will be communicated back to the requesting physician by way of shared Medical record or letter to requesting physician via [place] mail. CC: coronary artery calcifications HPI: Vic Ballesteros is a (an) 58 year old male who is here today for coronary artery calcifications. The patient has repeated episodes of chest pain described as left-sided pressure sometimes with exertion sometimes at rest usually lasting less than 5 minutes with no radiation and no accompanying symptoms, patient recently had a CT that showed coronary calcification as well, other than that, currently the patient has no other cardiovascular complaints denying shortness of breath, orthopnea, paroxysmal nocturnal dyspnea, cyanosis, palpitations, dizziness, lightheadedness, near syncope, syncope, edema of the lower extremities, perceived recent weight gain or intermittent claudications. The patient exercises minimally PAST MEDICAL HISTORY Diagnosis Date ACNE NEC 10/13/2006 Anxiety 01/16/2023 Depression Dyslipidemia Essential hypertension 01/16/2023 GERD (gastroesophageal reflux disease) 01/16/2023 History of traumatic brain injury Hypogonadism male 10/30/1988 Left knee pain Obesity AMANDA (obstructive sleep apnea) 10/30/2005 cpap PMH - PAST MEDICAL HISTORY OF L 5 nerve injury workman comp PMH - PAST MEDICAL HISTORY OF 10/30/1988 Industrial accident fall Stroke (HCC) Thrombosed external hemorrhoid 10/26/2011 Unspecified site of spinal cord injury without evidence of spinal bone injury 01/25/2013 PAST SURGICAL HISTORY Procedure Laterality Date ABDOMINAL SURGERY HX COLONOSCOPY FLX DX W/COLLJ SPEC WHEN PFRMD 04/17/2012 repeat 10 years COLONOSCOPY SCREENING 06/09/2022 10 year f/u colonoscopy FRACTURE SURGERY JOINT REPLACEMENT HX LAPAROSCOPY SURG CHOLECYSTECTOMY 08/01/2017 Cholecystectomy, lap PAST SURGICAL HISTORY OF Right 1988 wrist fracture after work accident, states still has hardware PAST SURGICAL HISTORY OF 1988 exploratory after accident, opened from pubic bone to breastbone REPAIR NASAL SEPTUM DEFECT RPR 1ST INCAL/VNT HERNIA INCARCERATED 10/28/2019 TOTAL HIP REPLACEMENT Left 2021 VASECTOMY UNI/BI SPX W/POSTOP SEMEN EXAMS Bilateral 1999 FAMILY HISTORY Problem Relation Age of Onset Heart Mother Hypertension Mother Stroke Mother Cancer Father lung, throat other (lymphoma) Sister other (car accident) Sister None Brother None Brother SOCIAL HISTORY Social History Tobacco Use Smoking status: Never Smokeless tobacco: Never Vaping Use Vaping status: Never Used Substance Use Topics Alcohol use: Yes Alcohol/week: 1.0 standard drink of alcohol Types: 1 Cans of Beer (12oz) per week Drug use: No ALLERGIES: Penicillin G, Sulfa (Sulfonamide Antibiotics), Celebrex [Celecoxib], and Lisinopril CURRENT MEDICATIONS: Current Outpatient Medications Medication Sig Dispense Refill amphetamine-dextroamphetamine XR (ADDERALL XR) 10 mg capsule Take 10 mg by mouth once daily. buPROPion (WELLBUTRIN) 75 mg tablet Take 75 mg by mouth two times a day. budesonide-formoterol (SYMBICORT) 80-4.5 mcg/actuation inhaler Inhale 2 Puffs as instructed two times a day. [address] (PROTONIX) 40 mg tablet Take 1 tablet by mouth once daily. 30 tablet 5 testosterone (ANDROGEL) 50 mg / 5 g (1%) Apply 1 packet to affected area every other day. Alternating with 25 mg. 30 Packet 0 ergocalciferol 50,000 unit capsule (VITAMIN D2, DRISDOL) Take 1 capsule by mouth one time a week. 12 capsule 1 Tadalafil (CIALIS) 20 mg tablet TAKE 1 TABLET BY MOUTH 1-2 HOURS BEFORE SEXUAL INTRACOURSE NEEDED 6 tablet 17 albuterol HFA (VENTOLIN HFA) 90 mcg/actuation inhaler Inhale 2 Puffs as instructed every 4 hours as needed for wheezing/shortness of breath. 3 Each 1 acetaminophen (TYLENOL EXTRA STRENGTH) 500 mg tablet Take 2 tablets by mouth every 8 hours as needed for pain. 180 tablet 3 traMADol (ULTRAM) 50 mg tablet albuterol (PROVENTIL) 2.5 mg /3 mL (0.083 %) nebulizer solution Use 3 mL via nebulizer every 6 hours as needed for wheezing/shortness of breath. Use over 5-15minutes. 180 mL 1 losartan (COZAAR) 50 mg tablet Take 1 tablet by mouth once daily. 90 tablet 4 testosterone (ANDROGEL) 25 mg/ 2.5g (1%) Apply 1 Packet to affected area every other day for 180 days. Alernating witth 50 mg qod 225 g 0 CPAP/BIPAP/OTHER autoCPAP 5-20 cmH2O DME [employer] 1 Each 0 CPAP Initiate Auto PAP @ 5-20 cm of water with humidification. Mask (per patient preference) optio (more content not included)... [facility] 10-01-2024 Instructions Lacy Kessler MD - 10/01/2024 11:30 AM EST Recommend calcium scoring CT documented in this encounter [facility] 10-01-2024 Note HNO ID: [id number] Author: MARY JO GARCIA RPFT Service: ? Author Type: Respiratory Therapist Type: Procedures Filed: 10/01/2024 11:17 Note Text: RESPIRATORY THERAPY ORAL EXHALED NITRIC OXIDE SERVICE DATE: 10/01/2024 SERVICE TIME: 11:17 AM Oral Exhaled Nitric Oxide measurement: 15.0 (ppb) Normal: Adult <25 ppb, pediatric (<12 years) <20 ppb High Normal / Increased: Adult 25-50 ppb, pediatric (<12 years) 20-35 ppb Moderately raised exhaled Nitric Oxide may indicate underlying inflammation, but note that: Cold and influenza can raise exhaled Nitric Oxide and some patients have higher baseline exhaled Nitric Oxide levels than others. High: Adult >50 ppb, pediatric (<12 years) >35 ppb Indicative of ongoing eosinophilic inflammation. Symptomatic patient likely to respond to steroids. Possible causes (if already on steroids): Poor compliance, recent allergen exposure, steroid dose inadequate, and steroid resistance. Note that not all patients with high exhaled nitric oxide levels display symptoms. Oral Exhaled Nitric Oxide measurement (Previous Encounters) Test Date Oral Exhaled Nitric Oxide (ppb) 10/01/2024 15.0 NAME: VIVIANE London PATIENT NAME: Vic Ballesteros DATE: October 01, 2024 TIME: 11:17 AM [facility] 10-01-2024 Procedure note Associated Ord er(s): NITRIC OXIDE, EXHALED RESPIRATORY THERAPY ORAL EXHALED NITRIC OXIDE SERVICE DATE: 10/01/2024 SERVICE TIME: 11:17 AM Oral Exhaled Nitric Oxide measurement: 15.0 (ppb) Normal: Adult <25 ppb, pediatric (<12 years) <20 ppb High Normal / Increased: Adult 25-50 ppb, pediatric (<12 years) 20-35 ppb Moderately raised exhaled Nitric Oxide may indicate underlying inflammation, but note that: Cold and influenza can raise exhaled Nitric Oxide and some patients have higher baseline exhaled Nitric Oxide levels than others. High: Adult >50 ppb, pediatric (<12 years) >35 ppb Indicative of ongoing eosinophilic inflammation. Symptomatic patient likely to respond to steroids. Possible causes (if already on steroids): Poor compliance, recent allergen exposure, steroid dose inadequate, and steroid resistance. Note that not all patients with high exhaled nitric oxide levels display symptoms. Oral Exhaled Nitric Oxide measurement (Previous Encounters) Test Date Oral Exhaled Nitric Oxide (ppb) 10/01/2024 15.0 NAME: VIVIANE London PATIENT NAME: Vic Ballesteros DATE: October 01, 2024 TIME: 11:17 AM [facility] 10-01-2024 Procedure note Associated Ord er(s): NITRIC OXIDE, EXHALED RESPIRATORY THERAPY ORAL EXHALED NITRIC OXIDE SERVICE DATE: 10/01/2024 SERVICE TIME: 11:17 AM Oral Exhaled Nitric Oxide measurement: 15.0 (ppb) Normal: Adult <25 ppb, pediatric (<12 years) <20 ppb High Normal / Increased: Adult 25-50 ppb, pediatric (<12 years) 20-35 ppb Moderately raised exhaled Nitric Oxide may indicate underlying inflammation, but note that: Cold and influenza can raise exhaled Nitric Oxide and some patients have higher baseline exhaled Nitric Oxide levels than others. High: Adult >50 ppb, pediatric (<12 years) >35 ppb Indicative of ongoing eosinophilic inflammation. Symptomatic patient likely to respond to steroids. Possible causes (if already on steroids): Poor compliance, recent allergen exposure, steroid dose inadequate, and steroid resistance. Note that not all patients with high exhaled nitric oxide levels display symptoms. Oral Exhaled Nitric Oxide measurement (Previous Encounters) Test Date Oral Exhaled Nitric Oxide (ppb) 10/01/2024 15.0 NAME: VIVIANE London PATIENT NAME: Vic Ballesteros DATE: October 01, 2024 TIME: 11:17 AM documented in this encounter [facility] 10-01-2024 Note HNO ID: [id number] Author: MARY JO GARCIA RPFT Service: ? Author Type: Respiratory Therapist Type: Progress Notes Filed: 10/01/2024 11:17 Note Text: PULM FUNCTION: Provider: Lacy Kessler MD Assisting Tech: Mary Jo Garcia RPFT Exhaled Nitric Oxide: 1 [facility] 10-01-2024 History of Present illness Narrative PULM FUNCTION: Provider: Lacy Kessler MD Assisting Tech: Mary Jo Garcia RPFT Exhaled Nitric Oxide: 1 documented in this encounter [facility] 10-01-2024 History of Present illness Narrative Images from the original note were not included. . Res[facility] [place] Note Patient name: Vic Ballesteros PCP: Myah Arteaga MD Referring Physician: Tara Hilliard CNP Consultation requested by Tara Hilliard for an opinion regarding chronic cough possible asthma. My final recommendations will be communicated back to the requesting physician by way of shared Medical record or letter to requesting physician via [place] mail. CC: cough and wheezing HPI: Vic Ballesteros 58 year old male never smoker with PMH significant for morbid obesity, anxiety/depression, GERD, HTN, AMANDA on CPAP, HLD, being referred for evaluation of possible asthma. No prior history of asthma or allergies. History notable for COVID infection this past June. Hospitalized at [facility] for several days, did not require supplemental oxygen, treated with remdesivir and dexamethasone. Since that time he has had persistent cough and wheezing. He has been short of breath mainly with activity. Self monitored SpO2 93-95%. Describes his shortness of breath similar in sensation to when one is first exposed to extreme cold air. He is heard wheezing mainly at night when he lies down. He also has noted coughing postprandial. He has known acid reflux disease for which he takes occasional Tums. He was started on Wixela and albuterol inhalers. He does not use any inhalers on a regular basis. He notes throat irritation and dysphonia with use of the powdered form inhaler. DATA: PFT 08/15/24: Review of pulmonary function test show restriction and small airways obstruction Labs: Component Ref Range & Units 3 mo ago (06/14/24) WBC 3.70 - 11.00 k/uL 5.41 RBC 4.20 - 6.00 m/uL 5.17 Hemoglobin 13.0 - 17.0 g/dL 16.4 Hematocrit 39.0 - 51.0 % 47.4 MCV 80.0 - 100.0 fL 91.7 MCH 26.0 - 34.0 pg 31.7 MCHC 30.5 - 36.0 g/dL 34.6 RDW-CV 11.5 - 15.0 % 12.6 Platelet Count 150 - 400 k/uL 173 MPV 9.0 - 12.7 fL 10.3 Neutrophils % % 52.2 Abs Neut 1.45 - 7.50 k/uL 2.82 Lymphocytes % % 35.7 Abs Lymph 1.00 - 4.00 k/uL 1.93 Monocytes % % 7.9 Abs [place] <0.87 k/uL 0.43 Eosinophils % % 3.3 Abs Eosin <0.46 k/uL 0.18 Basophils % % 0.7 Abs Baso <0.11 k/uL 0.04 Immature Granulocytes % % 0.2 Abs Immature Gran <0.10 k/uL <0.03 NRBC /100 WBC 0.0 Absolute nRBC <0.01 k/uL <0.01 Imaging / Diagnostic Studies: DATE OF EXAM: Jul 30 2024 2:06PM [facility]39 - CT CHEST W IVCON / IMPRESSION: 1. No acute chest pathology 2. 5 mm nodule right lower lobe 3. No thoracic lymphadenopathy CXR 06/2024 Possible left lower lobe infiltrate PAST MEDICAL HISTORY Diagnosis Date ACNE NEC 10/13/2006 Anxiety 01/16/2023 Depression Dyslipidemia Essential hypertension 01/16/2023 GERD (gastroesophageal reflux disease) 01/16/2023 History of traumatic brain injury Hypogonadism male 10/30/1988 Left knee pain Obesity AMANAD (obstructive sleep apnea) 10/30/2005 cpap PMH - PAST MEDICAL HISTORY OF L 5 nerve injury workman comp PMH - PAST MEDICAL HISTORY OF 10/30/1988 Industrial accident fall Stroke (HCC) Thrombosed external hemorrhoid 10/26/2011 Unspecified site of spinal cord injury without evidence of spinal bone injury 01/25/2013 ALLERGIES Allergen Reactions Penicillin G Hives Sulfa (Sulfonamide * Hives Celebrex [Celecoxib] Rash Lisinopril Intolerance Cough amphetamine-dextroamphetamine XR (ADDERALL XR) 10 mg capsule Take 10 mg by mouth once daily. buPROPion (WELLBUTRIN) 75 mg tablet Take 75 mg by mouth two times a day. testosterone (ANDROGEL) 50 mg / 5 g (1%) Apply 1 packet to affected area every other day. Alternating with 25 mg. ergocalciferol 50,000 unit capsule (VITAMIN D2, DRISDOL) Take 1 capsule by mouth one time a week. Tadalafil (CIALIS) 20 mg tablet TAKE 1 TABLET BY MOUTH 1-2 HOURS BEFORE SEXUAL INTRACOURSE NEEDED traMADol (ULTRAM) 50 mg tablet losartan (COZAAR) 50 mg tablet Take 1 tablet by mouth once daily. testosterone (ANDROGEL) 25 mg/ 2.5g (1%) Apply 1 Packet to affected area every other day for 180 days. Alernating witth 50 mg qod clonazePAM (KLONOPIN) 1 mg tablet TAKE 1/2 TABLET THREE TIMES A DAY NEEDED budesonide-formoterol (SYMBICORT) 80-4.5 mcg/actuation inhaler Inhale 2 Puffs as instructed two times a day. pantoprazole DR (PROTONIX) 40 mg tablet Take 1 tablet by mouth once daily. albuterol HFA (VENTOLIN HFA) 90 mcg/actuation inhaler Inhale 2 Puffs as instructed every 4 hours as needed for wheezing/shortness of breath. acetaminophen (TYLENOL EXTRA STRENGTH) 500 mg tablet Take 2 tablets by mouth every 8 hours as needed for pain. albuterol (PROVENTIL) 2.5 mg /3 mL (0.083 %) nebulizer solution Use 3 mL via nebulizer every 6 hours as needed for wheezing/shortness of breath. Use over 5-15minutes. CPAP/BIPAP/OTHER autoCPAP 5-20 cmH2O DME [facility] CPAP Initiate Auto PAP @ 5-20 cm of water with humidification. Mask (per patient preference) optional chin strap (if indicated) , filters, tubing, humidifier and lifetime supplies. Current machine is 7 years old and needs replaced. Insurance if refusing titration sleep study. lidocaine 4 % gel Apply 1 Tube to affected area once daily. 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 Pets: None FAMILY HISTORY Problem Relation Age of Onset Heart Mother Hypertension Mother Stroke Mother Cancer Father lung, throat other (lymphoma) Sister other (car accident) Sister None Brother None Brother PAST SURGICAL HISTORY Procedure Laterality Date ABDOMINAL SURGERY HX COLONOSCOPY FLX DX W/COLLJ SPEC WHEN PFRMD 04/17/2012 repeat 10 years COLONOSCOPY SCREENING 06/09/2022 10 year f/u colonoscopy FRACTURE SURGERY JOINT REPLACEMENT HX LAPAROSCOPY SURG CHOLECYSTECTOMY 08/01/2017 Cholecystectomy, lap PAST SURGICAL HISTORY OF Right 1988 wrist fracture after work accident, states still has hardware PAST SURGICAL HISTORY OF 1988 exploratory after accident, opened from pubic bone to breastbone REPAIR NASAL SEPTUM DEFECT RPR 1ST INCAL/VNT HERNIA INCARCERATED 10/28/2019 TOTAL HIP REPLACEMENT Left 2021 VASECTOMY UNI/BI SPX W/POSTOP SEMEN EXAMS Bilateral 2000 PMH, Social history, family history and surgical history reviewed and updated in EMR REVIEW OF SYSTEMS: CONSTITUTIONAL: No fevers, chills, nightsweats, unintended weight loss HEENT: Denies nasal congestion/sinus symptoms, allergy problems. No loss of taste or smell CARDIOVASCULAR: No chest pain, palpitations, orthopnea, edema. PULM: See HPI GI: No dysphagia/odynophagia. GERD NEURO: No balance problems, peripheral weakness/paresthesias or numbness of concern. MUSC-SKEL: No joint pain, swelling, or erythema. PSY: Depression and anxiety, sees psychiatrist INTEGUMENTARY: No new skin changes or rashes PHYSICAL EXAMINATION: BP 130/82 Pulse 62 Resp 18 Wt 260 lb (117.9kg) SpO2 95% General Appearance: Obese, NAD. Skin: Skin color, texture, turgor normal, no suspicious rashes or lesions. Head: Normocephalic, no masses, lesions, tenderness or abnormalities. Eyes: Sclera, conjunctiva normal. Oropharynx: No oral lesions, thrush, cobblestoning Neck: No masses or adenopathy. Lungs: Not labored, no wheezes or crackles. Heart: RRR, no murmur. Extremities: Mild edema of right leg, no clubbing. Assessment/Plan: Post COVID cough -Clinical history consistent with reactive airways disease -Changed inhaled therapy to medium dose form, Symbicort 80/4.52 puffs twice daily. Patient was instructed to use Symbicort daily -May need methacholine challenge test -Acid reflux appears to be a contributing factor to his cough as well GERD -Discussed antireflux measures -Started Protonix -Weight loss advised Morbid obesity -BMI 42 -Weight loss advised Lung nodule -Small nodule. Scheduled for repeat CT in 1 year -Coronary calcifications noted on chest CT. Recommend cardiology evaluation and calcium scoring CT Lacy Kessler MD [facility] [place] documented in this encounter [facility] 10-01-2024 Note HNO ID: [id number] Author: LACY KESSLER MD Service: ? Author Type: Physician Type: Progress Notes Filed: 10/01/2024 13:24 Note Text: . Respiratory [place] Note Patient name: Vic Ballesteros PCP: Myah Arteaga MD Referring Physician: Tara Hilliard CNP Consultation requested by Tara Hilliard for an opinion regarding chronic cough possible asthma. My final recommendations will be communicated back to the requesting physician by way of shared Medical record or letter to requesting physician via US mail. CC: cough and wheezing HPI: Vic Ballesteros 58 year old male never smoker with PMH significant for morbid obesity, anxiety/depression, GERD, HTN, AMANDA on CPAP, HLD, being referred for evaluation of possible asthma. No prior history of asthma or allergies. History notable for COVID infection this past June. Hospitalized at [facility] for several days, did not require supplemental oxygen, treated with remdesivir and dexamethasone. Since that time he has had persistent cough and wheezing. He has been short of breath mainly with activity. Self monitored SpO2 93-95%. Describes his shortness of breath similar in sensation to when one is first exposed to extreme cold air. He is heard wheezing mainly at night when he lies down. He also has noted coughing postprandial. He has known acid reflux disease for which he takes occasional Tums. He was started on Wixela and albuterol inhalers. He does not use any inhalers on a regular basis. He notes throat irritation and dysphonia with use of the powdered form inhaler. DATA: PFT 08/15/24: Review of pulmonary function test show restriction and small airways obstruction Labs: Component Ref Range AND Units 3 mo ago (06/14/24) WBC 3.70 - 11.00 k/uL 5.41 RBC 4.20 - 6.00 m/uL 5.17 Hemoglobin 13.0 - 17.0 g/dL 16.4 Hematocrit 39.0 - 51.0 % 47.4 MCV 80.0 - 100.0 fL 91.7 MCH 26.0 - 34.0 pg 31.7 MCHC 30.5 - 36.0 g/dL 34.6 RDW-CV 11.5 - 15.0 % 12.6 Platelet Count 150 - 400 k/uL 173 MPV 9.0 - 12.7 fL 10.3 Neutrophils % % 52.2 Abs Neut 1.45 - 7.50 k/uL 2.82 Lymphocytes % % 35.7 Abs Lymph 1.00 - 4.00 k/uL 1.93 Monocytes % % 7.9 Abs [place] <0.87 k/uL 0.43 Eosinophils % % 3.3 Abs Eosin <0.46 k/uL 0.18 Basophils % % 0.7 Abs Baso <0.11 k/uL 0.04 Immature Granulocytes % % 0.2 Abs Immature Gran <0.10 k/uL <0.03 NRBC /100 WBC 0.0 Absolute nRBC <0.01 k/uL <0.01 Imaging / Diagnostic Studies: DATE OF EXAM: Jul 30 2024 2:06PM [facility] 0539 - CT CHEST W IVCON / IMPRESSION: 1. No acute chest pathology 2. 5 mm nodule right lower lobe 3. No thoracic lymphadenopathy CXR 06/2024 Possible left lower lobe infiltrate PAST MEDICAL HISTORY Diagnosis Date ACNE NEC 10/13/2006 Anxiety 01/16/2023 Depression Dyslipidemia Essential hypertension 01/16/2023 GERD (gastroesophageal reflux disease) 01/16/2023 History of traumatic brain injury Hypogonadism male 10/30/1988 Left knee pain Obesity AMANDA (obstructive sleep apnea) 10/30/2005 cpap PMH - PAST MEDICAL HISTORY OF L 5 nerve injury workman comp PMH - PAST MEDICAL HISTORY OF 10/30/1988 Industrial accident fall Stroke (HCC) Thrombosed external hemorrhoid 10/26/2011 Unspecified site of spinal cord injury without evidence of spinal bone injury 01/25/2013 ALLERGIES Allergen Reactions Penicillin G Hives Sulfa (Sulfonamide * Hives Celebrex [Celecoxib] Rash Lisinopril Intolerance Cough amphetamine-dextroamphetamine XR (ADDERALL XR) 10 mg capsule Take 10 mg by mouth once daily. buPROPion (WELLBUTRIN) 75 mg tablet Take 75 mg by mouth two times a day. testosterone (ANDROGEL) 50 mg / 5 g (1%) Apply 1 packet to affected area every other day. Alternating with 25 mg. ergocalciferol 50,000 unit capsule (VITAMIN D2, DRISDOL) Take 1 capsule by mouth one time a week. Tadalafil (CIALIS) 20 mg tablet TAKE 1 TABLET BY MOUTH 1-2 HOURS BEFORE SEXUAL INTRACOURSE NEEDED traMADol (ULTRAM) 50 mg tablet losartan (COZAAR) 50 mg tablet Take 1 tablet by mouth once daily. testosterone (ANDROGEL) 25 mg/ 2.5g (1%) Apply 1 Packet to affected area every other day for 180 days. Alernating witth 50 mg qod clonazePAM (KLONOPIN) 1 mg tablet TAKE 1/2 TABLET THREE TIMES A DAY NEEDED budesonide-formoterol (SYMBICORT) 80-4.5 mcg/actuation inhaler Inhale 2 Puffs as instructed two times a day. pantoprazole DR (PROTONIX) 40 mg tablet Take 1 tablet by mouth once daily. albuterol HFA (VENTOLIN HFA) 90 mcg/actuation inhaler Inhale 2 Puffs as instructed every 4 hours as needed for wheezing/shortness of breath. acetaminophen (TYLENOL EXTRA STRENGTH) 500 mg tablet Take 2 tablets by mouth every 8 hours as needed for pain. albuterol (PROVENTIL) 2.5 mg /3 mL (0.083 %) nebulizer solution Use 3 mL via nebulizer every 6 hours as needed for wheezing/shortness of breath. Use over 5-15minutes. (more content not included)... [facility] 09-04-2024 Telephone encounter Note That is fine. Script sent. Marita Moore APRN.ESDRAS [facility] 09-04-2024 Miscellaneous Notes That is fine. Script sent. Marita Moore APRN.ESDRAS [facility] calling can not break a box, asking to have Testosterone rx changed to 30 packets. Reset rx to file. Please advise The patient has been identified by name and date of : Yes Pharmacy Caregiver verified no other encounters exist for this prescription request: Yes Caregiver confirmed with patient/requestor that no other refills are due, in the near future, with this provider at this time: Yes The last office visit in the department: 08/06/2024 Does the patient have a future office visit with this provider/department: Yes 12/18/2024 Requested Prescriptions Pending Prescriptions Disp Refills testosterone (ANDROGEL) 50 mg / 5 g (1%) 30 Packet 0 Sig: Apply 1 packet to affected area every other day. Alternating with 25 mg. Jeanette Neely LPN September 04, 2024 8:50 AM documented in this encounter [facility] 09-04-2024 Telephone encounter Note [facility] calling can not break a box, asking to have Testosterone rx changed to 30 packets. Reset rx to file. Please advise The patient has been identified by name and date of : Yes Pharmacy Caregiver verified no other encounters exist for this prescription request: Yes Caregiver confirmed with patient/requestor that no other refills are due, in the near future, with this provider at this time: Yes The last office visit in the department: 08/06/2024 Does the patient have a future office visit with this provider/department: Yes 12/18/2024 Requested Prescriptions Pending Prescriptions Disp Refills testosterone (ANDROGEL) 50 mg / 5 g (1%) 30 Packet 0 Sig: Apply 1 packet to affected area every other day. Alternating with 25 mg. Jeanette Neely LPN September 04, 2024 8:50 AM [facility] 08-16-2024 Telephone encounter Note Pt. informed. [facility] Work Phone: 08-16-2024 Miscellaneous Notes Pt. informed. Left message for patient to return call. Nida Ceron Ma I did send patient a message in MyChart. Please let him know that it was a misunderstanding. I am not sure why they did not do the pulmonary function test, give albuterol, and then follow-up with a second function to look for changes. He does not need to repeat at this time. I trust that the inhalers are working for him and it is likely asthma since they are helping. That is my clinical evaluation. Lets hold off on a repeat test and let Dr. Kessler evaluate whether she wants another test. Pt called and is notified of providers results and instructions. Pt is still asking if provider wants him to reschedule breathing tests since he used his inhalers before he did them. I let him know provider was already advised of this and said to see how he does with the inhalers, and if they weren't helping he could be reassessed. Pt states the inhalers are helping. Pt was then asking why provider didn't think the inhalers weren't working, and I said she didn't think that but wanted Pt to try the inhalers. Pt was still insistent on asking again if provider wanted him to redo breathing tests. Jake Garrido, BRIAN Lets see how he does with the inhalers. Could reassess if not helping. Patient was made aware of results. He said he was never notified of the need to not take the inhaler. He was advised to take he medications as advised. He is asking if he should repeat the test? ----- Message from Tara Hilliard sent at 08/15/2024 8:28 AM EDT ----- Your pulmonary function test did not show emphysema. They were not able to test for asthma because you have taken your inhalers before you went. We needed criteria before and after bronchodilators. documented in this encounter [facility] 08-16-2024 Telephone encounter Note Left message for patient to return call. Nida Ceron Ma [facility] 08-15-2024 Telephone encounter Note I did send patient a message in [place]. Please let him know that it was a misunderstanding. I am not sure why they did not do the pulmonary function test, give albuterol, and then follow-up with a second function to look for changes. He does not need to repeat at this time. I trust that the inhalers are working for him and it is likely asthma since they are helping. That is my clinical evaluation. Lets hold off on a repeat test and let Dr. Kessler evaluate whether she wants another test. [facility] 08-15-2024 Telephone encounter Note Pt called and is notified of providers results and instructions. Pt is still asking if provider wants him to reschedule breathing tests since he used his inhalers before he did them. I let him know provider was already advised of this and said to see how he does with the inhalers, and if they weren't helping he could be reassessed. Pt states the inhalers are helping. Pt was then asking why provider didn't think the inhalers weren't working, and I said she didn't think that but wanted Pt to try the inhalers. Pt was still insistent on asking again if provider wanted him to redo breathing tests. Jake Garrido, RN [facility] 08-15-2024 Telephone encounter Note Lets see how he does with the inhalers. Could reassess if not helping. [facility] 08-15-2024 Telephone encounter Note Patient was made aware of results. He said he was never notified of the need to not take the inhaler. He was advised to take he medications as advised. He is asking if he should repeat the test? [facility] 08-15-2024 Telephone encounter Note ----- Message from Tara Hilliard sent at 08/15/2024 8:28 AM EDT ----- Your pulmonary function test did not show emphysema. They were not able to test for asthma because you have taken your inhalers before you went. We needed criteria before and after bronchodilators. [facility] 08-15-2024 Progress note Formatting of t his note might be different from the original. Your pulmonary function test did not show emphysema. They were not able to test for asthma because you have taken your inhalers before you went. We needed criteria before and after bronchodilators. [facility] 08-15-2024 Miscellaneous Notes Your pulmonary function test did not show emphysema. They were not able to test for asthma because you have taken your inhalers before you went. We needed criteria before and after bronchodilators. documented in this encounter [facility] 08-15-2024 History of Present illness Narrative PULM FUNCTION: Provider: Tara Hilliard APRN.CNP Assisting Tech: Mary Jo Garcia RPFT Spirometry: 1 documented in this encounter [facility] 08-14-2024 Telephone encounter Note Verified with patient still alternating dose 25 and 50 mg. Called to let pharmacy know but they need a new order please. [facility] 08-14-2024 Miscellaneous Notes Verified with patient still alternating dose 25 and 50 mg. Called to let pharmacy know but they need a new order please. Verify. I did not see him since we change it to an alternating dose. Verify if got changed while in hospital an. If not resume alternating dose Stephanie with [facility] calling to clarify on the Testosterone 50 mg packet. Is he to be using this daily or still alternating with the 25 mg packet. Please advise pharmacy. Patricia Mcqueen LPN documented in this encounter [facility] 08-14-2024 Telephone encounter Note Verify. I did not see him since we change it to an alternating dose. Verify if got changed while in hospital an. If not resume alternating dose [facility] 08-14-2024 Telephone encounter Note Stephanie with [facility] calling to clarify on the Testosterone 50 mg packet. Is he to be using this daily or still alternating with the 25 mg packet. Please advise pharmacy. Patricia Mcqueen LPN [facility] 08-14-2024 Telephone encounter Note Patient has been identified by name and date of : yes Patient phones for refill(s): Requested Prescriptions Pending Prescriptions Disp Refills testosterone (ANDROGEL) 50 mg / 5 g (1%) 150 g 5 Sig: Apply 1 Packet as directed once daily for 180 days. Date of last office visit in primary care: 08/06/2024 Date of next office visit in primary care: 12/18/2024 Please advise. Thank you. Lacy Choudhury MA. [facility] 08-14-2024 Miscellaneous Notes Patient has been identified by name and date of : yes Patient phones for refill(s): Requested Prescriptions Pending Prescriptions Disp Refills testosterone (ANDROGEL) 50 mg / 5 g (1%) 150 g 5 Sig: Apply 1 Packet as directed once daily for 180 days. Date of last office visit in primary care: 08/06/2024 Date of next office visit in primary care: 12/18/2024 Please advise. Thank you. Lacy Choudhury MA. [facility] calling to request a medication that is . testosterone (ANDROGEL) 50 mg / 5 g (1%) () Patient last seen 08-06-24 Future appointment scheduled: yes PHARMACY: [facility]. documented in this encounter [facility] 08-14-2024 Telephone encounter Note [facility] calling to request a medication that is . testosterone (ANDROGEL) 50 mg / 5 g (1%) () Patient last seen 08-06-24 Future appointment scheduled: yes PHARMACY: [facility]. [facility] 08-14-2024 Telephone encounter Note Prescription Refill Information The patient has been identified by name and date of : Yes Caregiver verified no other encounters exist for this prescription request: Yes Caregiver confirmed with patient/requestor that no other refills are due, in the near future, with this provider at this time: Yes The last office visit in the department: 08-06-24 Does the patient have a future office visit with this provider/department: Yes Requested Prescriptions Pending Prescriptions Disp Refills ergocalciferol 50,000 unit capsule (VITAMIN D2, DRISDOL) 12 capsule 1 Sig: Take 1 capsule by mouth one time a week. Tadalafil (CIALIS) 20 mg tablet 6 tablet 17 Sig: TAKE 1 TABLET BY MOUTH 1-2 HOURS BEFORE SEXUAL INTRACOURSE NEEDED Leidy Enamorado August 14, 2024 8:27 AM [facility] 08-14-2024 Miscellaneous Notes Prescription Refill Information The patient has been identified by name and date of : Yes Caregiver verified no other encounters exist for this prescription request: Yes Caregiver confirmed with patient/requestor that no other refills are due, in the near future, with this provider at this time: Yes The last office visit in the department: 08-06-24 Does the patient have a future office visit with this provider/department: Yes Requested Prescriptions Pending Prescriptions Disp Refills ergocalciferol 50,000 unit capsule (VITAMIN D2, DRISDOL) 12 capsule 1 Sig: Take 1 capsule by mouth one time a week. Tadalafil (CIALIS) 20 mg tablet 6 tablet 17 Sig: TAKE 1 TABLET BY MOUTH 1-2 HOURS BEFORE SEXUAL INTRACOURSE NEEDED Leidy Enamorado August 14, 2024 8:27 AM documented in this encounter [facility] 08-06-2024 Instructions Tara Hilliard APRN.LEATHER SORTER - 08/06/2024 9:06 AM EDT 1) Start Wixela 1 puff 2 x day, continue albuterol 2) Pulmonary Function Test 3) Consult pulmonary 4) See Dr. Arteaga in Nov. As scheduled documented in this encounter [facility] 08-06-2024 History of Present illness Narrative This is a 58 year old male who presents today with: Patient presents with: Follow Up: 2 week pneumonia/Covid follow up HISTORY OF PRESENT ILLNESS: Vic Ballesteros is a 58 year old male. Patient presents with: Follow Up: 2 week pneumonia/Covid follow up Had Covid on 07/17/24- Still having wheezing, tightness in throat, air doesn't want to come out. The feeling of running out of air causes him anxiety. Pulse ox 93- 97 %. Pulse ox dropped to 80's when sleeping with CPAP on. Not getting anything up. No longer taking ,mucinex. Denies chest pain, no pain between shoulder blades. Does have aching in lungs. With coughing, neck cracks. Went out and raked leaves yesterday. PAST MEDICAL HISTORY: PAST MEDICAL HISTORY Diagnosis Date ACNE NEC 10/13/2006 Anxiety 01/16/2023 ANXIETY STATE NOS 12/26/2008 Depression Dyslipidemia Essential hypertension 01/16/2023 GERD (gastroesophageal reflux disease) 01/16/2023 History of traumatic brain injury Hypertension Hypogonadism male 10/30/1988 Left knee pain Obesity AMANDA (obstructive sleep apnea) 10/30/2005 cpap PMH - PAST MEDICAL HISTORY OF L 5 nerve injury workman comp PMH - PAST MEDICAL HISTORY OF 10/30/1988 Industrial accident fall Stroke (HCC) Thrombosed external hemorrhoid 10/26/2011 Unspecified site of spinal cord injury without evidence of spinal bone injury 01/25/2013 PAST SURGICAL HISTORY Procedure Laterality Date ABDOMINAL SURGERY HX COLONOSCOPY FLX DX W/COLLJ SPEC WHEN PFRMD 04/17/2012 repeat 10 years COLONOSCOPY SCREENING 06/09/2022 10 year f/u colonoscopy FRACTURE SURGERY HERNIA REPAIR HX JOINT REPLACEMENT HX LAPAROSCOPY SURG CHOLECYSTECTOMY 08/01/2017 Cholecystectomy, lap PAST SURGICAL HISTORY OF Right 1988 wrist fracture after work accident, states still has hardware PAST SURGICAL HISTORY OF 1988 exploratory after accident, opened from pubic bone to breastbone REPAIR NASAL SEPTUM DEFECT RPR 1ST INCAL/VNT HERNIA INCARCERATED 10/28/2019 TOTAL HIP REPLACEMENT Left 2021 VASECTOMY UNI/BI SPX W/POSTOP SEMEN EXAMS Bilateral 1999 ALLERGIES Penicillin G, Sulfa (Sulfonamide Antibiotics), Celebrex [Celecoxib], and Lisinopril MEDICATIONS Current Outpatient Medications Medication Sig dextromethorphan-guaiFENesin (MUCINEX DM) 30-600 mg per tablet Take 1 tablet by mouth two times a day. traMADol (ULTRAM) 50 mg tablet benzonatate (TESSALON PERLES) 100 mg capsule Take 1-2 capsules by mouth three times a day as needed for cough. albuterol (PROVENTIL) 2.5 mg /3 mL (0.083 %) nebulizer solution Use 3 mL via nebulizer every 6 hours as needed for wheezing/shortness of breath. Use over 5-15minutes. albuterol HFA (VENTOLIN HFA) 90 mcg/actuation inhaler Inhale 2 Puffs as instructed every 4 hours as needed for wheezing/shortness of breath. losartan (COZAAR) 50 mg tablet Take 1 tablet by mouth once daily. testosterone (ANDROGEL) 25 mg/ 2.5g (1%) Apply 1 Packet to affected area every other day for 180 days. Alernating witth 50 mg qod CPAP/BIPAP/OTHER autoCPAP 5-20 cmH2O DME [employer] ergocalciferol 50,000 unit capsule (VITAMIN D2, DRISDOL) Take 1 capsule by mouth one time a week. testosterone (ANDROGEL) 50 mg / 5 g (1%) Apply 1 Packet as directed once daily for 180 days. Tadalafil (CIALIS) 20 mg tablet TAKE 1 TABLET BY MOUTH 1-2 HOURS BEFORE SEXUAL INTRACOURSE NEEDED CPAP Initiate Auto PAP @ 5-20 cm of water with humidification. Mask (per patient preference) optional chin strap (if indicated) , filters, tubing, humidifier and lifetime supplies. Current machine is 7 years old and needs replaced. Insurance if refusing titration sleep study. clonazePAM (KLONOPIN) 1 mg tablet TAKE 1/2 TABLET THREE TIMES A DAY NEEDED acetaminophen (TYLENOL EXTRA STRENGTH) 500 mg tablet Take 2 tablets by mouth every 8 hours as needed for pain. lidocaine 4 % gel Apply 1 Tube to affected area once daily. No current facility-administered medications for this visit. FAMILY HISTORY Problem Relation Age of Onset Heart Mother Hypertension Mother Cancer Father lung None Brother None Brother other (lymphoma) Sister other (car accident) Sister Social History Tobacco Use Smoking status: Never Smokeless tobacco: Never Vaping Use Vaping status: Never Used Substance Use Topics Alcohol use: Yes Alcohol/week: 1.0 standard drink of alcohol Types: 1 Cans of Beer (12oz) per week Drug use: No EXAM: BP 148/66 Pulse 66 Resp 24 Wt 120.2 kg (265 lb) SpO2 96% BMI 44.10 kg/m PHYSICAL EXAM: Physical Exam Vitals reviewed. Constitutional: Appearance: Normal appearance. He is obese. HENT: Head: Normocephalic. Cardiovascular: Rate and Rhythm: Normal rate and regular rhythm. Pulses: Normal pulses. Heart sounds: Normal heart sounds. Pulmonary: Effort: No respiratory distress. Breath sounds: Wheezing present. No rhonchi or rales. Comments: Expiratory wheezing scattered throughout- poor air exchange throughout Negative egophony Also completed CT scan and that showed no acute pathology Abdominal: General: Bowel sounds are normal. Palpations: Abdomen is soft. Musculoskeletal: General: Normal range of motion. Skin: General: Skin is warm and dry. Neurological: General: No focal deficit present. Mental Status: He is alert and oriented to person, place, and time. Psychiatric: Mood and Affect: Mood normal. Behavior: Behavior normal. LABS: ASSESSMENT/PLAN: 1. Moderate persistent reactive airway disease with wheezing without complication - ICD9: 493.90, ICD10: J45.40 - Moderate persistent asthma slowly improving but still wheezing - Avoidance of triggers recommended - Get PFT - Consult pulmonary - Treat reactivity with Wixela because not tolerating oral steroids - Albuterol as needed Discussed treatment plan and patient voices understanding. Patient's questions answered appropriately. Medications and potential side effects were discussed and patient voices understanding. Return to the office as scheduled or as needed for worsening/no improvement. Tara Hilliard APRN.ESDRAS documented in this encounter [facility] 08-05-2024 Telephone encounter Note Pt notified. Will discuss further tomorrow at appt. Lucita Davalos MA [facility] 08-05-2024 Miscellaneous Notes Pt notified. Will discuss further tomorrow at appt. Lucita Davalos MA ----- Message from Tara Talentwisejarod sent at 08/05/2024 10:54 AM EDT ----- Please let patient know that there is a 5 mm nodule in the right lower lobe. This may be nothing concerning. Too small to characterize at this point. They would like to repeat a CT in a year. An order has been placed. documented in this encounter [facility] 08-05-2024 Telephone encounter Note ----- Message from Entrispherejarod sent at 08/05/2024 10:54 AM EDT ----- Please let patient know that there is a 5 mm nodule in the right lower lobe. This may be nothing concerning. Too small to characterize at this point. They would like to repeat a CT in a year. An order has been placed. [facility] 08-05-2024 Telephone encounter Note Pt made aware results are still in process. Apologized to pt for delay and notified him once read he will be notified. Lara Maravilla MA [facility] 08-05-2024 Miscellaneous Notes Pt made aware results are still in process. Apologized to pt for delay and notified him once read he will be notified. Lara Maravilla MA documented in this encounter [facility] 07-30-2024 History of Present illness Narrative Radiology Service Progress Note DATE OF SERVICE: July 30, 2024 TIME: 2:50 PM PATIENT IDENTITY VERIFICATION COMPLETED USING TWO (2) STANDARD IDENTIFIERS: Name and Date of confirmed by patient verbally. FALL SCREENING: Has the patient had 2 falls in the last year or 1 fall with injury or currently using an Ambulatory Assistive Device (Walker, Cane, Wheelchair, Crutches, etc.)? No PATIENT GENDER DATA: Male PATIENT RELEVANT IMPLANT DATA REVIEWED: Yes PATIENT PRESENTS WITH AN IMPLANTABLE OR ATTACHED LANDSCAPING SUPERVISOR: No ALLERGIES: Reviewed and unchanged CONTRAST ALLERGY: NO. EXAM: CT -CONTRAST INDUCED NEPHROPATHY RISK FACTORS: Not applicable CREATININE: Creatinine Date Value Ref Range Status 06/14/2024 0.76 0.73 - 1.22 mg/dL Final 06/03/2024 0.71 (L) 0.73 - 1.22 mg/dL Final 04/02/2024 0.76 0.73 - 1.22 mg/dL Final Estimated Glomerular Filtration Rate Date Value Ref Range Status 06/14/2024 104 >=60 mL/min/1.73m Final Comment: Estimated Glomerular Filtration Rate (eGFR) is calculated using the 2020 CKD-EPI creatinine equation. This equation utilizes serum creatinine, sex, and age as parameters. The creatinine assay has traceable calibration to isotope dilution-mass spectrometry. Refer to KDIGO guidelines for clinical interpretation. In patients with unstable renal function, e.g. those with acute kidney injury, the eGFR may not accurately reflect actual GFR. eGFR- Date Value Ref Range Status 12/05/2021 >60 Final P.O.C.T. RESULTS: POC done: Yes, See Lab Tab July 30, 2024 TREATMENT: N/A PERIPHERAL IV DATA: Ambulatory: A peripheral IV was started in the Left antecubital site with a Angio cath: 22 gauge. RADIOLOGY DEPARTMENT: CT; Exam(s) Completed: Chest SIGNATURE: RT Catia(R) PATIENT NAME: Vic Ballesteros DATE: July 30, 2024 TIME: 2:50 PM documented in this encounter [facility] 07-23-2024 Note Addended by: TARA HILLIARD on: 07/23/2024 12:03 PM Modules accepted: Orders [facility] 07-23-2024 Miscellaneous Notes Addended by: TARA HILLIARD on: 07/23/2024 12:03 PM Modules accepted: Orders documented in this encounter [facility] 07-23-2024 Instructions Tara Hilliard APRN.CNP - 07/23/2024 11:58 AM EDT Finish Levaquin Finish betamethasone Mucinex DM 2 x day until better CT Scan Patient Instructions 1. You must fast for at least 4 hours before the test. 2. You should take your medication as prescribed on the day of the test with a small amount of water. 3. Some exams require contrast. Intravenous (IV) contrast is used to enhances structures throughout the body while Oral contrast Volumen or water soluble(READI-CAT) is used to enhance structures in the gastrointestinal (GI) tract only, usually CT scans of the abdomen and pelvis. 4. If your exam requires IV contrast and you are 60 and over, have a history of diabetes or have a history of either liver or kidney disease, you will need lab work (Creatinine) done within 2 months before the test. The lab work needs to be completed at least 24 hours before the test. 5. CT scans of the abdomen and pelvis may require READI-CAT. 6. If you have been given READI-CAT, please drink 1/2 of bottle #1 90 min prior to the appointment 1/2 of bottle #1 60 min prior to the appointment 1/2 of bottle #2 30 min prior to the appointment You will drink last 1/[address] upon arrival to your [address] scan appointment. CT Scan Patient Instructions 1. You must fast for at least 4 hours before the test. 2. You should take your medication as prescribed on the day of the test with a small amount of water. 3. Some exams require contrast. Intravenous (IV) contrast is used to enhances structures throughout the body while Oral contrast Volumen or water soluble(READI-CAT) is used to enhance structures in the gastrointestinal (GI) tract only, usually CT scans of the abdomen and pelvis. 4. If your exam requires IV contrast and you are 60 and over, have a history of diabetes or have a history of either liver or kidney disease, you will need lab work (Creatinine) done within 2 months before the test. The lab work needs to be completed at least 24 hours before the test. 5. CT scans of the abdomen and pelvis may require READI-CAT. 6. If you have been given READI-CAT, please drink 1/2 of bottle #1 90 min prior to the appointment 1/2 of bottle #1 60 min prior to the appointment 1/2 of bottle #2 30 min prior to the appointment You will drink last 1/2 upon arrival to your CT scan appointment. documented in this encounter [facility] 07-23-2024 History of Present illness Narrative This is a 58 year old male who presents today with: Patient presents with: Hospital F/U: [facility] 07/17-07/19 Covid, Hypoxia HISTORY OF PRESENT ILLNESS: Vic Ballesteros is a 58 year old male. Patient presents with: Hospital F/U: [facility] 07/17-07/19 Covid, Hypoxia Recovering from Covid-19. Started 07/17 and started on remdesivir. Still getting very winded. + Dyspnea even at rest. + Fatigue + Cough- occ productive- yellowish green + No N/V No fever or chills + Body aches- improving + bowel and bladder function normal + appetite good Lowest pulse ox is 89% Still has a couple days on dexamethasone PAST MEDICAL HISTORY: PAST MEDICAL HISTORY Diagnosis Date ACNE NEC 10/13/2006 Anxiety 01/16/2023 ANXIETY STATE NOS 12/26/2008 Depression Dyslipidemia Essential hypertension 01/16/2023 GERD (gastroesophageal reflux disease) 01/16/2023 History of traumatic brain injury Hypertension Hypogonadism male 10/30/1988 Left knee pain Obesity AMANDA (obstructive sleep apnea) 10/30/2005 cpap PMH - PAST MEDICAL HISTORY OF L 5 nerve injury workman comp PMH - PAST MEDICAL HISTORY OF 10/30/1988 Industrial accident fall Stroke (HCC) Thrombosed external hemorrhoid 10/26/2011 Unspecified site of spinal cord injury without evidence of spinal bone injury 01/25/2013 PAST SURGICAL HISTORY Procedure Laterality Date ABDOMINAL SURGERY HX COLONOSCOPY FLX DX W/COLLJ SPEC WHEN PFRMD 04/17/2012 repeat 10 years COLONOSCOPY SCREENING 06/09/2022 10 year f/u colonoscopy FRACTURE SURGERY HERNIA REPAIR HX JOINT REPLACEMENT HX LAPAROSCOPY SURG CHOLECYSTECTOMY 08/01/2017 Cholecystectomy, lap PAST SURGICAL HISTORY OF Right 1988 wrist fracture after work accident, states still has hardware PAST SURGICAL HISTORY OF 1988 exploratory after accident, opened from pubic bone to breastbone REPAIR NASAL SEPTUM DEFECT RPR 1ST INCAL/VNT HERNIA INCARCERATED 10/28/2019 TOTAL HIP REPLACEMENT Left 2021 VASECTOMY UNI/BI SPX W/POSTOP SEMEN EXAMS Bilateral 1999 ALLERGIES Penicillin G, Sulfa (Sulfonamide Antibiotics), Celebrex [Celecoxib], and Lisinopril MEDICATIONS Current Outpatient Medications Medication Sig dexAMETHasone (DECADRON) 6 mg tablet Take 1 tablet by mouth every afternoon. traMADol (ULTRAM) 50 mg tablet benzonatate (TESSALON PERLES) 100 mg capsule Take 1-2 capsules by mouth three times a day as needed for cough. albuterol (PROVENTIL) 2.5 mg /3 mL (0.083 %) nebulizer solution Use 3 mL via nebulizer every 6 hours as needed for wheezing/shortness of breath. Use over 5-15minutes. albuterol HFA (VENTOLIN HFA) 90 mcg/actuation inhaler Inhale 2 Puffs as instructed every 4 hours as needed for wheezing/shortness of breath. losartan (COZAAR) 50 mg tablet Take 1 tablet by mouth once daily. testosterone (ANDROGEL) 25 mg/ 2.5g (1%) Apply 1 Packet to affected area every other day for 180 days. Alernating witth 50 mg qod ergocalciferol 50,000 unit capsule (VITAMIN D2, DRISDOL) Take 1 capsule by mouth one time a week. testosterone (ANDROGEL) 50 mg / 5 g (1%) Apply 1 Packet as directed once daily for 180 days. acetaminophen (TYLENOL EXTRA STRENGTH) 500 mg tablet Take 2 tablets by mouth every 8 hours as needed for pain. levoFLOXacin (LEVAQUIN) 750 mg tablet Take 1 tablet by mouth once daily for 7 days. CPAP/BIPAP/OTHER autoCPAP 5-20 cmH2O DME [facility] Tadalafil (CIALIS) 20 mg tablet TAKE 1 TABLET BY MOUTH 1-2 HOURS BEFORE SEXUAL INTRACOURSE NEEDED CPAP Initiate Auto PAP @ 5-20 cm of water with humidification. Mask (per patient preference) optional chin strap (if indicated) , filters, tubing, humidifier and lifetime supplies. Current machine is 7 years old and needs replaced. Insurance if refusing titration sleep study. clonazePAM (KLONOPIN) 1 mg tablet TAKE 1/2 TABLET THREE TIMES A DAY NEEDED lidocaine 4 % gel Apply 1 Tube to affected area once daily. No current facility-administered medications for this visit. FAMILY HISTORY Problem Relation Age of Onset Heart Mother Hypertension Mother Cancer Father lung None Brother None Brother other (lymphoma) Sister other (car accident) Sister Social History Tobacco Use Smoking status: Never Smokeless tobacco: Never Vaping Use Vaping status: Never Used Substance Use Topics Alcohol use: Yes Alcohol/week: 1.0 standard drink of alcohol Types: 1 Cans of Beer (12oz) per week Drug use: No EXAM: BP 132/70 Pulse 61 Resp 24 Wt 119.7 kg (264 lb) SpO2 93% BMI 43.93 kg/m PHYSICAL EXAM: Physical Exam Vitals reviewed. Constitutional: Appearance: He is obese. He is ill-appearing. HENT: Head: Normocephalic. Cardiovascular: Rate and Rhythm: Normal rate and regular rhythm. Pulses: Normal pulses. Heart sounds: Normal heart sounds. Pulmonary: Breath sounds: Wheezing present. No rhonchi or rales. Comments: Diminished nae. Bases, upper airway wheezing Abdominal: General: Bowel sounds are normal. Palpations: Abdomen is soft. Musculoskeletal: General: Normal range of motion. Comments: Generalized weakness Skin: General: Skin is warm and dry. Neurological: Mental Status: He is alert. LABS: will get follow up CT ASSESSMENT/PLAN: 1. COVID-19 - ICD9: 079.89, ICD10: U07.1 With possible secondary bacterial pneumonia- purulent matter - complete Levaquin - finish dexamethasone - avoid dairy products until better - guaifenesin - request CT scan for chronic dyspnea with hypoxia with contrast Discussed treatment plan and patient voices understanding. Patient's questions answered appropriately. Medications and potential side effects were discussed and patient voices understanding. Return to the office as scheduled or as needed for worsening/no improvement. 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 Patient identified by name and . TRANSITION CARE MANAGEMENT INITIAL OUTREACH DOCUMENTATION: 07/22/2024 Date of Outreach: Outreach Attempt 1: Contact Made Date of Discharge 07/19/2024 SUMMARY: -Pt discharged from [facility] on 07/18/24. -Admitted for: Hypoxia, Covid Do you have a hospital follow up appointment with your PCP? Appointment on 07/23/24 with Veronica Hilliard. Yes. Remind patient of appointment date, time, and location. If not within 14 calendar days of discharge - please reschedule accordingly. MEDICATIONS: Many patients have questions or concerns about their medications once they are home. Were you prescribed any new medications? Yes If yes, what are those medications? Dexamethasone 6 mg Were you told to hold any medications? No Were any of your medications discontinued? No Do you have any questions about getting or taking your medications? No Your discharge instructions/After visit Summary (AVS) are important in guiding you through the recovery process. Is there anything I might help you understand? No Do you have all the necessary equipment and supplies at home? Yes Medical records from recent hospitalization: Placed for provider to review documented in this encounter [facility] 07-19-2024 Note [facility] Medical Records Department [address] [place] [address] Discharge Summary 07/19/24 1130 MR#: [id number] Acct: [id number] Name: VIC BALLESTEROS Jr. Rep #: [id number] : 1965 58 From: Magali Bass MD PCP: Dr. Myah Arteaga MD Status:DIS IN Location: ICU ICU10-1 Providers Date of Admission: 07/17/24 Date of Discharge: 07/19/24 Primary Care Physician: Dr. Myah Arteaga MD Reason For Visit: HYPOXIA COVID Diagnosis Discharge Diagnosis (1) COVID-19: Status: Acute Code(s): U07.1 - COVID-19 (2) Hypoxia: Status: Acute Code(s): R09.02 - Hypoxemia (3) Fever: Status: Acute Code(s): R50.9 - Fever, unspecified Plan #Hypoxia due to covid 19 infection * on 2L of oxygen by nasal canula * feels much better today. his breathing has improved * on breathing treatment with bronchodilators; on decadron 6mg daily and remdesivir * titrate oxygen to maintain sats >90% * #Hyponatremia: resolving #Hypertension; on losartan. IV hydralazine prn #AMANDA: on CPAP qhs. #Morbid obesity: BMI is 43.5. Complicates acute care, expected recovery adn prognosis DVT prophylaxis; lovenox Medications at Discharge Home Medications tadalafil 20 mg tablet 20 mg PO ONCE PRN ed 03/20/18 acetaminophen 500 mg tablet 500 mg PO Q6H PRN fever or pain 07/17/24 clonazepam 1 mg tablet 1 mg PO QHS PRN PRN sleep 07/18/24 ergocalciferol (vitamin D2) 1,250 mcg (50,000 unit) capsule (Vitamin D2) 1,250 mcg PO QWEEK Sleep apnea 07/18/24 losartan 50 mg tablet 50 mg PO DAILY B/P 07/18/24 testosterone 1 % (25 mg/2.5 gram) transdermal gel packet transdermal low testosterone 07/18/24 tramadol 50 mg tablet 50 mg PO BID PRN PRN pain 07/18/24 dexamethasone 6 mg tablet 6 mg PO DAILY #8 tabs 07/19/24 Hospital Course Operations None Procedures None Summary of Care Provided Minutes Spent on Discharge: 45 Hospital Course: Patient is a 58-year-old male with a past medical history as outlined who was admitted through the ED wiuth a complaint of fever, intermittent cough, myalgia and altered taste and smell as well as shortness of breath. His symptoms had been going on for about 3 days prior to admission. He also had congestion and rhinorrhea. He had been placed on p.o. doxycycline for 5-day course on outpatient basis but his symptoms had not fully resolved so he went to the urgent care. He was given a prescription for Levaquin there. He took 1 dose but his symptoms did not improve so he came into the ED. In the ED chest x-ray showed bibasilar interstitial thickening concerning for viral pneumonia and COVID test was positive. He was admitted and managed for hypoxia due to COVID-19 infection. He was placed on Decadron and breathing treatments bronchodilators. He was initially placed on remdesivir as he was requiring 4 L of oxygen. Patient symptoms improved and he felt much better. He was weaned off of oxygen onto room air and did well. He was discharged home on 07/19/2024. Was discharged on p.o. Decadron 6 mg daily for 8 days to complete a 10-day course. He is to follow-up with his primary care doctor within 1 to 2 weeks. Patient did not qualify for any oxygen at time of discharge. Patient seen and examined prior to discharge. He had no complaints and had an uneventful night. Review of systems otherwise negative. Labs and vitals reviewed. Home medication reviewed and reconciled. Physical Exam Const alert, oriented x3 and no apparent distress General Appearance: cooperative, comfortable and well developed Orientation / Consciousness: awake Exam Limitations: no limitations HEENT normocephalic, head/scalp atraumatic, hearing grossly normal bilaterally and moist oral mucous membranes Mouth: oral and palatal mucosa normal Eyes PERRL, EOMs intact bilaterally and conjunctivae normal Neck no lymphadenopathy and supple Lymph Lymphatic: no lymphadenopathy noted and no lymphedema noted Resp Resp Narrative: diminished breath sounds bibasally, no wheezes or crackles. On room air. Cardio regular rate, regular rhythm, S1 normal heart sound, S2 normal heart sound and no murmurs GI normal to inspection, nondistended, normoactive bowel sounds, soft to palpation, non-tender and non- distended Extremity normal capillary refill, no clubbing, cyanosis or edema and no calf tenderness General Extremity: no tenderness to palpation of joints or extremities Skin no rashes or lesions noted General Skin Exam: no breakdown Neuro oriented x3, CN's II-XII intact bilaterally, moves all extremities, no focal motor deficits, no sensory deficits noted and deep tendon reflexes 2+ bilaterally Sensorium / Orientation: awake Motor Exam: strength 5/5 throughout and general weakness Psych thought process normal and cooperative Appearance: appropriate Weight / BMI Weight Weight: 261 lb 3.9 (more content not included)... [facility] 07-17-2024 History of Present illness Narrative Radiology Service Progress Note PATIENT NAME: Vic Ballesteros DATE OF SERVICE: July 17, 2024 TIME: 2:27 PM PATIENT IDENTITY VERIFICATION COMPLETED USING TWO (2) IDENTIFIERS: Name and Date of confirmed by patient verbally. FALL SCREENING: Has the patient had 2 falls in the last year or 1 fall with injury or currently using an Ambulatory Assistive Device (Walker, Cane, Wheelchair, Crutches, etc.)? No PATIENT GENDER DATA: Male PATIENT RELEVANT IMPLANT DATA REVIEWED: Yes PATIENT PRESENTS WITH AN IMPLANTABLE OR ATTACHED LANDSCAPING SUPERVISOR: No RADIOLOGY DEPARTMENT: General X-ray: Exam(s) Completed: Chest X-Ray PERIPHERAL IV DATA: Not applicable SIGNED BY: Aniya Garrison RT(R) July 17, 2024 2:27 PM documented in this encounter [facility] 07-17-2024 Instructions Marita Moore APRN.[facility] - 07/17/2024 2:04 PM EDT Get the chest xray. Start the levoquin. Tessalon perles as needed for cough. Start the nebulizer. Tylenol/ibuprofen for fever. Push fluids. To the ER with any worsening symptoms. documented in this encounter [facility] 07-17-2024 History of Present illness Narrative This is a 58 year old male who presents today with: Patient presents with: Recheck: Follow up pneumonia- not feeling any better HISTORY OF PRESENT ILLNESS: Vic Ballesteros is a 58 year old male. Patient presents with: Recheck: Follow up pneumonia- not feeling any better Pt presents today with complaint of chest congestion. Refers that he did a couple of covid tests at onset, which was negative. He started w/ symptoms on 07/01. He went to urgent care on 07/06/24. Had negative chest xray on 07/08/24. Refers that he through he was getting better with the antibiotics, but still had fever. Will expectorate some green mucus once in a while. + PND. Throat is irritated. No ear pain. + headache. + body aches. Decreased appetite. Drinking fluids. Tylenol. Took some dayquil a couple of times. + fever. Temperature has been staying up. PAST MEDICAL HISTORY: PAST MEDICAL HISTORY Diagnosis Date ACNE NEC 10/13/2006 Anxiety 01/16/2023 ANXIETY STATE NOS 12/26/2008 Depression Dyslipidemia Essential hypertension 01/16/2023 GERD (gastroesophageal reflux disease) 01/16/2023 History of traumatic brain injury Hypertension Hypogonadism male 10/30/1988 Left knee pain Obesity AMANDA (obstructive sleep apnea) 10/30/2005 cpap PMH - PAST MEDICAL HISTORY OF L 5 nerve injury workman comp PMH - PAST MEDICAL HISTORY OF 10/30/1988 Industrial accident fall Stroke (HCC) Thrombosed external hemorrhoid 10/26/2011 Unspecified site of spinal cord injury without evidence of spinal bone injury 01/25/2013 PAST SURGICAL HISTORY Procedure Laterality Date ABDOMINAL SURGERY HX COLONOSCOPY FLX DX W/COLLJ SPEC WHEN PFRMD 04/17/2012 repeat 10 years COLONOSCOPY SCREENING 06/09/2022 10 year f/u colonoscopy FRACTURE SURGERY HERNIA REPAIR HX JOINT REPLACEMENT HX LAPAROSCOPY SURG CHOLECYSTECTOMY 08/01/2017 Cholecystectomy, lap PAST SURGICAL HISTORY OF Right 1988 wrist fracture after work accident, states still has hardware PAST SURGICAL HISTORY OF 1988 exploratory after accident, opened from pubic bone to breastbone REPAIR NASAL SEPTUM DEFECT RPR 1ST INCAL/VNT HERNIA INCARCERATED 10/28/2019 TOTAL HIP REPLACEMENT Left 2021 VASECTOMY UNI/BI SPX W/POSTOP SEMEN EXAMS Bilateral 1999 ALLERGIES Penicillin G, Sulfa (Sulfonamide Antibiotics), Celebrex [Celecoxib], and Lisinopril MEDICATIONS Current Outpatient Medications Medication Sig traMADol (ULTRAM) 50 mg tablet albuterol HFA (VENTOLIN HFA) 90 mcg/actuation inhaler Inhale 2 Puffs as instructed every 4 hours as needed for wheezing/shortness of breath. losartan (COZAAR) 50 mg tablet Take 1 tablet by mouth once daily. testosterone (ANDROGEL) 25 mg/ 2.5g (1%) Apply 1 Packet to affected area every other day for 180 days. Alernating witth 50 mg qod CPAP/BIPAP/OTHER autoCPAP 5-20 cmH2O DME [facility] ergocalciferol 50,000 unit capsule (VITAMIN D2, DRISDOL) Take 1 capsule by mouth one time a week. testosterone (ANDROGEL) 50 mg / 5 g (1%) Apply 1 Packet as directed once daily for 180 days. Tadalafil (CIALIS) 20 mg tablet TAKE 1 TABLET BY MOUTH 1-2 HOURS BEFORE SEXUAL INTRACOURSE NEEDED CPAP Initiate Auto PAP @ 5-20 cm of water with humidification. Mask (per patient preference) optional chin strap (if indicated) , filters, tubing, humidifier and lifetime supplies. Current machine is 7 years old and needs replaced. Insurance if refusing titration sleep study. clonazePAM (KLONOPIN) 1 mg tablet TAKE 1/2 TABLET THREE TIMES A DAY NEEDED acetaminophen (TYLENOL EXTRA STRENGTH) 500 mg tablet Take 2 tablets by mouth every 8 hours as needed for pain. lidocaine 4 % gel Apply 1 Tube to affected area once daily. No current facility-administered medications for this visit. FAMILY HISTORY Problem Relation Age of Onset Heart Mother Hypertension Mother Cancer Father lung None Brother None Brother other (lymphoma) Sister other (car accident) Sister Social History Tobacco Use Smoking status: Never Smokeless tobacco: Never Vaping Use Vaping status: Never Used Substance Use Topics Alcohol use: Yes Alcohol/week: 1.0 standard drink of alcohol Types: 1 Cans of Beer (12oz) per week Drug use: No EXAM: BP 138/88 Pulse 97 Temp (!) 38.8 C (101.8 F) Resp 18 SpO2 89% PHYSICAL EXAM: General Appearance: Well appearing, alert, in no acute distress, well-hydrated, well nourished.. Skin: Skin color, texture, turgor normal, no suspicious rashes or lesions. Head: Normocephalic, no masses, lesions, tenderness or abnormalities. Eyes: Anicteric sclera. Pupils are equally round and reactive to light. Extraocular movements are intact. . Ears: External ears normal, canals clear. Normal TMs bilaterally. Oropharynx: Lips, mucosa, and tongue normal, teeth and gums normal, oropharynx normal. Neck: Supple, no adenopathy Lungs: scattered rhonchi and exp wheezing. Heart: RRR without murmur, gallop, or rubs. No ectopy. Neurologic: Gait normal. ASSESSMENT/PLAN: 1. Bronchitis - ICD9: 490, ICD10: J40 (primary diagnosis) Will rexray to r/o pneumonia. Start levaquin (d/t allergies and already has taken doxy). Arthur prajapati. Nebulizer. - XR CHEST 2V FRONTAL/LAT - LEVOFLOXACIN 750 MG TABLET - BENZONATATE 100 MG CAPSULE - ALBUTEROL SULFATE 2.5 MG/3 ML (0.083 %) SOLUTION FOR NEBULIZATION - COVID & INFLUENZA A/B & RSV PCR, ROUTINE Low suspicion of COVID, but will go ahead and get COVID/RSV/influenza testing. Discussed with patient that if he should get any worsening symptoms, he should proceed to the ER for further evaluation and treatment. 2. Acute cough - ICD9: 786.2, ICD10: R05.1 - XR CHEST 2V FRONTAL/LAT - COVID & INFLUENZA A/B & RSV PCR, ROUTINE Discussed treatment plan and patient voices understanding. Patient's questions answered appropriately. Medications and potential side effects were discussed and patient voices understanding. Return to the office as scheduled or as needed for worsening/no improvement. Marita Moore APRN.LEATHER SORTER documented in this encounter [facility] 07-08-2024 History of Present illness Narrative Radiology Service Progress Note PATIENT NAME: Vic Ballesteros DATE OF SERVICE: July 08, 2024 TIME: 12:58 PM PATIENT IDENTITY VERIFICATION COMPLETED USING TWO (2) IDENTIFIERS: Name and Date of confirmed by patient verbally. FALL SCREENING: Has the patient had 2 falls in the last year or 1 fall with injury or currently using an Ambulatory Assistive Device (Walker, Cane, Wheelchair, Crutches, etc.)? No PATIENT GENDER DATA: Male PATIENT RELEVANT IMPLANT DATA REVIEWED: Yes PATIENT PRESENTS WITH AN IMPLANTABLE OR ATTACHED LANDSCAPING SUPERVISOR: No RADIOLOGY DEPARTMENT: General X-ray: Exam(s) Completed: Chest X-Ray PERIPHERAL IV DATA: Not applicable SIGNED BY: RT Olivia(R) July 08, 2024 12:58 PM documented in this encounter [facility] 07-08-2024 Telephone encounter Note Pt notified. Lucita Davalos MA [facility] 07-08-2024 Miscellaneous Notes Pt notified. Lucita Davalos MA placed Patient reports on , he was burning wood outside, and the wood did have poison gordy on it. Has been having resp symptoms since then. Was seen in [facility] on 07-06-24, and prescribed doxy and albuterol inhaler, for pneumonia. Reports he has had no improvement on these medications. Reports he is feeling terrible, still having wheeze, SOB, and fever. Also has one eye that is puffy with bags under it. POX running 93%. Reports he checked himself for covid twice, and both times was negative. Patient scheduled appt with pcp for tomorrow, and asking if pcp would order a CXR. Reports [facility] did not order a CXR. Please phone patient when CXR order placed and he will come in to complete. [phone] documented in this encounter [facility] 07-08-2024 Telephone encounter Note placed [facility] 07-08-2024 Telephone encounter Note Patient reports on , he was burning wood outside, and the wood did have poison gordy on it. Has been having resp symptoms since then. Was seen in [facility] on 07-06-24, and prescribed doxy and albuterol inhaler, for pneumonia. Reports he has had no improvement on these medications. Reports he is feeling terrible, still having wheeze, SOB, and fever. Also has one eye that is puffy with bags under it. POX running 93%. Reports he checked himself for covid twice, and both times was negative. Patient scheduled appt with pcp for tomorrow, and asking if pcp would order a CXR. Reports [facility] did not order a CXR. Please phone patient when CXR order placed and he will come in to complete. [phone] [facility] 07-06-2024 History of Present illness Narrative This note was created using [employer]. Subjective Vic Ballesteros is a 58 year old male. HPI fever 100.0 taking Tylenol. Chest congestion, cough, and at times SOB. Review of Systems Constitutional: Positive for fever. HENT: Positive for postnasal drip and sore throat. Respiratory: Positive for cough and shortness of breath. Objective BP 155/79 Pulse 70 Temp 36.3 C (97.3 F) Resp 18 Wt 121.2 kg (267 lb 3.2 oz) SpO2 95% BMI 44.46 kg/m Physical Exam HENT: Head: Normocephalic. Nose: Congestion present. Mouth/Throat: Mouth: Mucous membranes are moist. Pharynx: Posterior oropharyngeal erythema present. Cardiovascular: Rate and Rhythm: Normal rate. Pulmonary: Breath sounds: Normal breath sounds. Neurological: Mental Status: He is alert. Assessment and Plan ASSESSMENT/PLAN: 1. Upper respiratory infection, acute - ICD9: 465.9, ICD10: J06.9 - Symptomatic treatment with prn analgesia - Supportive care with fluids and rest - The patient may also use OTC decongestants prn and OTC cough and cold meds as needed. - Follow up in 3-5 days if symptoms persist or sooner if worsening of symptoms - see medication orders Jennifer Hoff APRN.CNP Medical Decision Making: Problems: Low: Acute, uncomplicated illness or injury Risk: Moderate: Drug management Medical Decision Making Level: 3 - Low documented in this encounter [facility] 07-06-2024 History of Present illness Narrative Virtualist Progress Note Triage Call I have communicated my name and active licensure. The patient's identity and physical location were verified at the time of this visit. Either the patient or their legal auto claim representative has been informed of the risks and benefits of -- and alternatives to -- treatment through a remote evaluation and consents to proceed with the evaluation remotely. Triage source: Triage Call (Nurse Farm Equipment Operator, [facility] - NOC Triage, [facility] Triage, [facility] Phone Triage) Was patient downgraded (i.e. disposition other than go to the ED was advised)? Yes Mode of contact: Audio Only Visit History/Physical Exam: onset around day per + cough chest congestion, coughed up green sputum covid symptoms but had two tests that were negative sat 93%, p 77 during call usually 98-99% upper back pain temp 100 someone in family has COPD hearing wheezing no nausea, vomiting, diarrhea decreased appetite is taking fluids is urinating urine is clear, sometimes yellow is up and able to walk about house but is tired during call, speaking in full sentences Nurse Triage Disposition (If call is from [facility], Home Care nurse triage, or an [facility] Care, the disposition is Go to ED Now): Go to ED Now Virtualist Recommended Disposition: Consult to Urgent Dispatch Signed in as Primary Virtualist, Secondary Virtualist, or [facility] Telehealth provider: Secondary assessment cough, upper respiratory symptoms, plan urgent care since is speaking in full sentences and chest congestion appears to be from the respiratory illness and is unlikely to be ACS documented in this encounter [facility] 07-06-2024 Telephone encounter Note Reason for call: cough, congestion, fever Outcome: Spoke with virtualist rehab consultant Dr. Villanueva who advised patient may go to instead of ED. Reason for Disposition MODERATE difficulty breathing (e.g., speaks in phrases, SOB even at rest, pulse 100-120) Answer Assessment - Initial Assessment Questions 1. COVID-19 DIAGNOSIS: Patient states he had 2 negative home covid test 2. COVID-19 EXPOSURE: unsure 3. ONSET: Symptoms began 3 days ago 4. WORST SYMPTOM: Body aches are worst symptom 5. COUGH: Cough moderate 6. FEVER: 100 F oral thermometer. Patient states he took tylenol 7. RESPIRATORY STATUS: Patient reports moderate shortness of breath with wheezing that seems to worsen with lying down 8. [id number]: Patient states he feels like he is getting worse 9. OTHER SYMPTOMS: Body aches, shortness of breath, chest pain, sore throat, back pain 10. HIGH RISK DISEASE: HTN 11. VACCINE: Has had 3 Pfizer covid vaccine 12. : N/A 13. O2 SATURATION MONITOR: Last night 93% Protocols used: COVID-19 - Diagnosed or [id number] [facility] 07-06-2024 Miscellaneous Notes Reason for call: cough, congestion, fever Outcome: Spoke with virtualist rehab consultant Dr. Villanueva who advised patient may go to instead of ED. Reason for Disposition MODERATE difficulty breathing (e.g., speaks in phrases, SOB even at rest, pulse 100-120) Answer Assessment - Initial Assessment Questions 1. COVID-19 DIAGNOSIS: Patient states he had 2 negative home covid test 2. COVID-19 EXPOSURE: unsure 3. ONSET: Symptoms began 3 days ago 4. WORST SYMPTOM: Body aches are worst symptom 5. COUGH: Cough moderate 6. FEVER: 100 F oral thermometer. Patient states he took tylenol 7. RESPIRATORY STATUS: Patient reports moderate shortness of breath with wheezing that seems to worsen with lying down 8. [id number]: Patient states he feels like he is getting worse 9. OTHER SYMPTOMS: Body aches, shortness of breath, chest pain, sore throat, back pain 10. HIGH RISK DISEASE: HTN 11. VACCINE: Has had 3 Pfizer covid vaccine 12. : N/A 13. O2 SATURATION MONITOR: Last night 93% Protocols used: COVID-19 - Diagnosed or [id number] documented in this encounter [facility] 06-10-2024 History of Present illness Narrative Patient presents with: 6 Month Exam HPI: Patient presents today for office visit for follow up. HTN: Patient is compliant with meds Yes Monitors bp at home: Yes. Sending readings to nephrology. They have adjusted meds. Denies side effects: Yes. Chest pain: No. Dyspnea: No. Edema: No. Palpitations: No. Syncope: No. Headache: No. Dizziness: No. No longer taking Pristiq. Psych provider is aware of this. While taking this he felt nothing and just sat in his recliner for 3 weeks and did nothing. Seeing nephrology for proteinuria. Hypogonadism: testosterone had increased above the normal. Feels very good on current dose. No shaking Slight irritability in am. We adjusted it down. Recheck testosterone in am in a month. Had seen weight[facility]. AMANDA:benefiting from its use. Still seeing pain management and psych. Has a new sleep apnea machine. Benefiting from its use. MEDICATIONS: Current Outpatient Medications Medication Sig losartan (COZAAR) 50 mg tablet Take 1 tablet by mouth once daily. testosterone (ANDROGEL) 25 mg/ 2.5g (1%) Apply 1 Packet to affected area every other day for 180 days. Alernating witth 50 mg qod ergocalciferol 50,000 unit capsule (VITAMIN D2, DRISDOL) Take 1 capsule by mouth one time a week. testosterone (ANDROGEL) 50 mg / 5 g (1%) Apply 1 Packet as directed once daily for 180 days. Tadalafil (CIALIS) 20 mg tablet TAKE 1 TABLET BY MOUTH 1-2 HOURS BEFORE SEXUAL INTRACOURSE NEEDED CPAP Initiate Auto PAP @ 5-20 cm of water with humidification. Mask (per patient preference) optional chin strap (if indicated) , filters, tubing, humidifier and lifetime supplies. Current machine is 7 years old and needs replaced. Insurance if refusing titration sleep study. clonazePAM (KLONOPIN) 1 mg tablet TAKE 1/2 TABLET THREE TIMES A DAY NEEDED CPAP/BIPAP/OTHER autoCPAP 5-20 cmH2O DME [facility] acetaminophen (TYLENOL EXTRA STRENGTH) 500 mg tablet Take 2 tablets by mouth every 8 hours as needed for pain. lidocaine 4 % gel Apply 1 Tube to affected area once daily. No current facility-administered medications for this visit. ALLERGIES: ALLERGIES Allergen Reactions Penicillin G Hives Sulfa (Sulfonamide * Hives Celebrex [Celecoxib] Rash Lisinopril Intolerance Cough PAST MEDICAL HISTORY 10/13/2006: ACNE NEC 01/16/2023: Anxiety 12/26/2008: ANXIETY STATE NOS No date: Depression No date: Dyslipidemia 01/16/2023: Essential hypertension 01/16/2023: GERD (gastroesophageal reflux disease) No date: History of traumatic brain injury No date: Hypertension 10/30/1988: Hypogonadism male No date: Left knee pain No date: Obesity 10/30/2005: AMANDA (obstructive sleep apnea) Comment: cpap No date: PMH - PAST MEDICAL HISTORY OF Comment: L 5 nerve injury workman comp 10/30/1988: PMH - PAST MEDICAL HISTORY OF Comment: Industrial accident fall No date: Stroke (HCC) 10/26/2011: Thrombosed external hemorrhoid 01/25/2013: Unspecified site of spinal cord injury without evidence of spinal bone injury PAST SURGICAL HISTORY No date: ABDOMINAL SURGERY HX 04/17/2012: COLONOSCOPY FLX DX W/COLLJ SPEC WHEN PFRMD Comment: repeat 10 years 06/09/2022: COLONOSCOPY SCREENING Comment: 10 year f/u colonoscopy No date: FRACTURE SURGERY No date: HERNIA REPAIR HX No date: JOINT REPLACEMENT HX 08/01/2017: LAPAROSCOPY SURG CHOLECYSTECTOMY Comment: Cholecystectomy, lap 1988: PAST SURGICAL HISTORY OF; Right Comment: wrist fracture after work accident, states still has hardware 1988: PAST SURGICAL HISTORY OF Comment: exploratory after accident, opened from pubic bone to breastbone No date: REPAIR NASAL SEPTUM DEFECT 10/28/2019: RPR 1ST INCAL/VNT HERNIA INCARCERATED 2021: TOTAL HIP REPLACEMENT; Left 1999: VASECTOMY UNI/BI SPX W/POSTOP SEMEN EXAMS; Bilateral FAMILY HISTORY Problem Relation Age of Onset Heart Mother Hypertension Mother Cancer Father lung None Brother None Brother other (lymphoma) Sister other (car accident) Sister Social History Tobacco Use Smoking status: Never Smokeless tobacco: Never Vaping Use Vaping Use: Never used Substance Use Topics Alcohol use: Yes Alcohol/week: 1.0 standard drink of alcohol Types: 1 Cans of Beer (12oz) per week Drug use: No Reviewed current medications, allergies, past medical history, surgical history, family history and social history today. REVIEW OF SYSTEMS All other reviewed and negative other than HPI. HEALTH MAINTENANCE: Reviewed health maintenance issues today and recommended the following in detail. BP Controlled (<130/80) Never done VITALS: BP 128/92 Pulse (!) 57 Wt 122.5 kg (270 lb) SpO2 94% BMI 44.93 kg/m Last 4 Encounter Wt Readings: Date: Wt: 03/22/2024 126 kg (277 lb 12.5 oz) 02/26/2024 120.7 kg (266 lb) 02/13/2024 120.7 kg (266 lb) 01/26/2024 119.1 kg (262 lb 9.6 oz) PHYSICAL EXAMINATION: General appearance: Well appearing, alert, in no acute distress, well-hydrated, well nourished. Skin: Skin color, texture, turgor normal, no suspicious rashes or lesions Head: Normocephalic, no masses, lesions, tenderness or abnormalities Heart: RRR without murmur, gallop, or rubs. No ectopy Abdomen: Normal abdominal exam, Abdomen soft, non-tender. Bowel sounds normal. No masses, organomegaly Extremities: No deformities, edema, skin discoloration, clubbing or cyanosis. Good capillary refill. , has afo brace on right leg. ASSESSMENT/PLAN: 1. Essential hypertension - ICD9: 401.9, ICD10: I10 (primary diagnosis) - Controlled - Continue current medications 2. Mixed hyperlipidemia - ICD9: 272.2, ICD10: E78.2 - Controlled - Counseled on healthy diet and regular exercise 3. AMANDA (obstructive sleep apnea) - ICD9: 327.23, ICD10: G47.33 - benefiting from its use. 4. Gastroesophageal reflux disease, unspecified whether esophagitis present - ICD9: 530.81, ICD10: K21.9 - stable. 5. Traumatic brain injury with loss of consciousness, subsequent encounter - ICD9: V58.89, 854.06, ICD10: S06.9X9D - stable. 6. Morbid obesity (HCC) - ICD9: 278.01, ICD10: E66.01 - discussed diet. 7. Anxiety - ICD9: 300.00, ICD10: F41.9 - per psych. 8. Fatty liver - ICD9: 571.8, ICD10: K76.0 - follow. Work on weight loss. 9. Medication monitoring encounter - ICD9: V58.83, ICD10: Z51.81 - check labs in on month. - TESTOSTERONE, TOTAL - COMPLETE BLOOD COUNT AND DIFFERENTIAL - PSA/PROSTATE SPECIFIC ANTIGEN SCREENING 10. Hypogonadism in male - ICD9: 257.2, ICD10: E29.1 - check am labs in one month. - TESTOSTERONE, TOTAL - COMPLETE BLOOD COUNT AND DIFFERENTIAL 11. Screening for prostate cancer - ICD9: V76.44, ICD10: Z12.5 - Counseled on healthy diet and regular exercise - PSA/PROSTATE SPECIFIC ANTIGEN SCREENING Myah Arteaga MD documented in this encounter [facility] 05-22-2024 Telephone encounter Note done [facility] 05-22-2024 Miscellaneous Notes done Printed and on desk for review. May want to add to justification at bottom of form. documented in this encounter [facility] 05-22-2024 Telephone encounter Note Printed and on desk for review. May want to add to justification at bottom of form. [facility] 05-22-2024 Telephone encounter Note Patient returned call. He says he needs a script for 25 mg to alternate with 50 mg. He says a prior auth will be required through [facility] and he will My Chart message details. Marlen Youssef RN [facility] 05-22-2024 Miscellaneous Notes Patient returned call. He says he needs a script for 25 mg to alternate with 50 mg. He says a prior auth will be required through [facility] and he will My Chart message details. Marlen Youssef RN Left message for patient to contact office. Jessica Mcmanus MA His testosterone is now high. Make sure he is not taking more than the 50mg. If he is just taking this, we might have to go with something like 50 alternating with 25 every other day. See if willing. Does he have enough at home to do that. If so. Recheck lab in one month, let me know documented in this encounter [facility] 05-22-2024 Telephone encounter Note Left message for patient to contact office. Jessica Mcmanus MA [facility] 05-22-2024 Telephone encounter Note His testosterone is now high. Make sure he is not taking more than the 50mg. If he is just taking this, we might have to go with something like 50 alternating with 25 every other day. See if willing. Does he have enough at home to do that. If so. Recheck lab in one month, let me know [facility] 04-29-2024 Telephone encounter Note Last OV: 02/26/2024 [facility] 04-29-2024 Miscellaneous Notes Last OV: 02/26/2024 documented in this encounter [facility] 04-26-2024 Telephone encounter Note Printed and signed in [place], please fax to [facility]. Felicia Broussard APRN.CNP [facility] 04-26-2024 Miscellaneous Notes Printed and signed in [place], please fax to [facility]. Felicia Broussard APRN.ESDRAS Patient records received via electronic fax. Uploaded to [facility] via [employer]. Please review in scanned documents tab of chart review. Placed on Providers file. Eve Bryant MA documented in this encounter [facility] 04-26-2024 Telephone encounter Note Patient records received via electronic fax. Uploaded to [facility] via [employer]. Please review in scanned documents tab of chart review. Placed on Providers file. Eve Bryant MA [facility] 04-19-2024 Telephone encounter Note Orders faxed to [facility] per request. Annie Dickson LPN [facility] 04-19-2024 Miscellaneous Notes Orders faxed to [facility] per request. Annie Dickson LPN See above Summary: new PAP order Please fax order for replacement machine to [facility]. Felicia Broussard APRN.CNP documented in this encounter [facility] 04-19-2024 Telephone encounter Note See above [facility] 04-19-2024 Telephone encounter Note Summary: new PAP order Please fax order for replacement machine to [facility]. Felicia Broussard APRN.CNP [facility] 03-22-2024 Instructions Santy Colón MD - 03/22/2024 8:50 AM EDT -Start on lisinopril 10 mg daily. -Repeat renal panel (lab test) after one week. -Avoid NSAIDs (Ibuprofen, Motrin, Alleve, Advil, Naproxen, Meloxicam/Mobic, Diclofenac, Indomethacin, Goodies powder, BC powder etc) -Recommend drinking around 64-96 ounces of water/fluids per day. -Low salt diet (<2 gm Sodium per day) -Monitor BP at home. -Blood pressure Target <130/80 mm Hg. Inform us through MyChart if your blood pressure is not at target consistently. -Get laboratory tests done in one week, then every 3 months documented in this encounter [facility] 03-22-2024 History of Present illness Narrative [facility] SERVICE DATE: 03/22/2024 REASON FOR CONSULT: I am asked to see this patient in consultation for my opinion regarding proteinuria. My recommendations will be communicated by way of shared medical record, fax, or mail. REQUESTING PHYSICIAN: Myah Arteaga MD PRIMARY CARE PHYSICIAN: Myah Arteaga MD CHIEF COMPLAINT: Proteinuria HPI: 58-year-old with medical history significant for hypertension, hyperlipidemia, depression, obesity, hypogonadism, ED, BPH, Neurogenic bladder, AMANDA on CPAP, history of stroke, h/o Hepatitis serology positive (but viral load negative) has been referred for proteinuria. He has been told that he has HTN (borderline) for around 10 years. At one point he was on HCTZ 25 mg; he 'felt anxious' and it was stopped around 05/2023 (he took it for around a year). He says that his urine is foamy and thinks that the urine is 'smelly'. He endorses having a rash on his buttock around a month back and it got worse on scratching; turned into scab. It was itchy. He claims that he has stress incontinence from a accidents (apparently had L5-S1 ); which he thinks it has improved and he does not have to wear pads. Was seen by Urology until 2019; diagnosed as having BPH and Neurogenic bladder. Complains of excessive sleepiness. No h/o NSAID use; he uses Tylenol only. No recent IV contrast/dye use. No h/o hematuria, dysuria. He uses premier protein every morning in his coffee (around 10 gm). No history of renal stones. No recent hospitalizations. No history of recurrent UTIs. No history of joint pain, rashes, photosensitivity, oral ulcers or excessive hair loss. He does complains infrequent palpitations; and sometimes has right sided chest pain. He recently had an MRI of the kidneys done for possible lesion in his left kidney; which came back negative. Monitors blood pressure at home. Readings:130s-160s/ 90s. Eats mostly cooked food at home. Does not monitor salt to the food. Had lost around 11 lbs in last few months. Fluid intake of around 48 oz a day. Does not smoke; drinks alcohol socially. 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 He is on [employer] disability. Review of the patient's 24-hour protein is 420 mg. UA is without hematuria. Kidney function is normal. Patient is on desvenlafaxine 50 mg daily, ergocalciferol 50 units once a week. PAST MEDICAL HISTORY: PAST MEDICAL HISTORY Diagnosis Date ACNE NEC 10/13/2006 Anxiety 01/16/2023 ANXIETY STATE NOS 12/26/2008 Depression Dyslipidemia Essential hypertension 01/16/2023 GERD (gastroesophageal reflux disease) 01/16/2023 History of traumatic brain injury Hypertension Hypogonadism male 10/30/1988 Left knee pain Obesity AMANDA (obstructive sleep apnea) 10/30/2005 cpap PMH - PAST MEDICAL HISTORY OF L 5 nerve injury workman comp PMH - PAST MEDICAL HISTORY OF 10/30/1988 Industrial accident fall Stroke (HCC) Thrombosed external hemorrhoid 10/26/2011 Unspecified site of spinal cord injury without evidence of spinal bone injury 01/25/2013 PAST SURGICAL HISTORY: PAST SURGICAL HISTORY Procedure Laterality Date ABDOMINAL SURGERY HX COLONOSCOPY FLX DX W/COLLJ SPEC WHEN PFRMD 04/17/2012 repeat 10 years COLONOSCOPY SCREENING 06/09/2022 10 year f/u colonoscopy FRACTURE SURGERY HERNIA REPAIR HX JOINT REPLACEMENT HX LAPAROSCOPY SURG CHOLECYSTECTOMY 08/01/2017 Cholecystectomy, lap PAST SURGICAL HISTORY OF Right 1988 wrist fracture after work accident, states still has hardware PAST SURGICAL HISTORY OF 1988 exploratory after accident, opened from pubic bone to breastbone REPAIR NASAL SEPTUM DEFECT RPR 1ST INCAL/VNT HERNIA INCARCERATED 10/28/2019 TOTAL HIP REPLACEMENT Left 2021 VASECTOMY UNI/BI SPX W/POSTOP SEMEN EXAMS Bilateral 1999 FAMILY HISTORY: No FH of kidney disease. FAMILY HISTORY Problem Relation Age of Onset Heart Mother Hypertension Mother Cancer Father lung None Brother None Brother other (lymphoma) Sister other (car accident) Sister SOCIAL HISTORY: Social History Tobacco Use Smoking status: Never Smokeless tobacco: Never Vaping Use Vaping Use: Never used Substance Use Topics Alcohol use: Yes Alcohol/week: 1.0 standard drink of alcohol Types: 1 Cans of Beer (12oz) per week Drug use: No MEDICATIONS: ergocalciferol 50,000 unit capsule (VITAMIN D2, DRISDOL) Take 1 capsule by mouth one time a week. testosterone (ANDROGEL) 50 mg / 5 g (1%) Apply 1 Packet as directed once daily for 180 days. desvenlafaxine ER (PRISTIQ) 50 mg 24 hr tablet Take 50 mg by mouth once daily. testosterone (ANDROGEL) 25 mg/ 2.5g (1%) Apply 1 Packet to affected area once daily for 180 days. Tadalafil (CIALIS) 20 mg tablet TAKE 1 TABLET BY MOUTH 1-2 HOURS BEFORE SEXUAL INTRACOURSE NEEDED CPAP Initiate Auto PAP @ 5-20 cm of water with humidification. Mask (per patient preference) optional chin strap (if indicated) , filters, tubing, humidifier and lifetime supplies. Current machine is 7 years old and needs replaced. Insurance if refusing titration sleep study. clonazePAM (KLONOPIN) 1 mg tablet TAKE 1/2 TABLET THREE TIMES A DAY NEEDED acetaminophen (TYLENOL EXTRA STRENGTH) 500 mg tablet Take 2 tablets by mouth every 8 hours as needed for pain. lidocaine 4 % gel Apply 1 Tube to affected area once daily. ALLERGIES: ALLERGIES Allergen Reactions Penicillin G Hives Sulfa (Sulfonamide * Hives Celebrex [Celecoxib] Rash REVIEW OF SYSTEMS: Constitutional: No fevers, chills, weight loss Eyes: No loss in vision, photophobia Ear, Nose, and Throat: No epistaxis, nasal congestion Cardiovascular: No chest pain, BRIDGES, SOB, palpitations Respiratory: No cough, hemoptysis Gastrointestinal: No diarrhea, constipation Genitourinary: No dysuria, polyuria Musculoskeletal: No joint pain, morning stiffness Skin: No rash, no ulcers Neurological: No headaches, seizures, paresthesias Psychiatric: No depression, anxiety Endocrine: No hair loss, no heat intolerance Hematologic:No easy bruising, easy bleeding PHYSICAL EXAM: BP 135/83 (BP Site: Left Arm, BP Position: Sitting, BP Cuff Size: Large Adult) Pulse (!) 59 Wt 126 kg (277 lb 12.5 oz) BMI 46.22 kg/m BP - standardized method Pulse 1 BP #1: 133/81 Pulse #1: 60 beats/min 2 BP #2 : 139/64 Pulse #2 : 59 beats/min 3 BP #3 : 134/83 Pulse #3 : 59 beats/min Average Average BP: 135/83 Average Pulse: 59 beats/min Orthostatic vitals Supine Sitting Standing BP cuff location BP cuff location: Left upper arm BP cuff size BP cuff size: large adult Comments for BP values First BP (right) First BP (left) Constitutional: No acute distress, Responsive, Well-nourished. Eyes: Conjunctiva clear, PERRL. Ear, Nose, and Throat: Hearing normal, Lips normal. Neck:Trachea midline, No jugular venous distension. Cardiovascular: Regular rate and ryhthm, normal S1 and S2, no murmurs, rubs, or gallops. Respiratory: Normal respiratory effort, Lungs clear bilaterally. Abdomen:Soft, non-tender, non-distended. Normal bowel sounds. No hepatosplenomegaly Musculoskeletal: No clubbing or cyanosis of digits. Pedal edema minimal+ Neurologic: Alert and oriented, no focal deficits Psychiatric: Co-operative, Normal mood/affect. DATA: Diagnostic tests reviewed for today's visit: Recent Labs 02/09/24 0934 COLOR Yellow CLARITY Clear UGLUC Negative UBILI Negative UKET Negative SPGR 1.018 UHB Negative UPH 6.5 UPROT Trace* NITRITES Negative LEUKEST Negative UWBC 0-5 /HPF URBC 0-2 /HPF Recent Labs 02/26/24 0947 02/13/24 1353 CINDI 723.0* -- TRANSFERSAT 32.7 -- HB -- 15.4 Recent Labs 02/26/24 0947 02/13/24 1353 ALKPHOS -- 65 VITD25 21.6* -- CA -- 9.5 ALB -- 4.4 No results for input(s): BUNRAT, BUNPR, BUNPO in the last 168 hours. No results for input(s): HEPSABQ in the last 1440 hours. Invalid input(s): HEPSABG Glucose (mg/dL) Date Value 02/13/2024 84 12/05/2021 92 Potassium (mmol/L) Date Value 02/13/2024 4.9 12/05/2021 4.5 Sodium (mmol/L) Date Value 02/13/2024 142 12/05/2021 140 Chloride (mmol/L) Date Value 02/13/2024 104 12/05/2021 104 CO2 (mmol/L) Date Value 02/13/2024 27 12/05/2021 26 Creatinine (mg/dL) Date Value 02/13/2024 0.83 12/05/2021 0.85 BUN (mg/dL) Date Value 02/13/2024 12 12/05/2021 15 Anion Gap (mmol/L) Date Value 02/13/2024 11 12/05/2021 10 Calcium (mg/dL) Date Value 12/05/2021 9.0 Calcium, Total (mg/dL) Date Value 02/13/2024 9.5 eGFR- (no units) Date Value 12/05/2021 >60 Kidney/bladder ultrasound 02/22/2024 RESULT: Right Kidney: -Renal length: 4.5 cm -Parenchyma: Normal parenchymal echogenicity. Normal parenchymal thickness. -Collecting system: No hydronephrosis. -Calculus: No echogenic, shadowing calculus. -Lesion: None. Left Kidney: -Renal length: 13.1 cm -Parenchyma: Normal parenchymal echogenicity. Normal parenchymal thickness. -Collecting system: No hydronephrosis. -Calculus: No echogenic, shadowing calculus. -Lesion: Upper pole renal cortical lobulation versus lesion. Suboptimally characterized due to overlying bowel gas. Bladder: Urinary bladder is empty Visualization of the renal contours is suboptimal due to overlying bowel gas and patient build IMPRESSION: Left upper pole renal cortical lobulation versus lesion. Dedicated renal imaging recommended for complete evaluation No hydronephrosis MRI abdomen: 03/11/2024: IMPRESSION: 1. Normal appearance of the kidneys on MRI with no evidence of renal mass. The finding on the prior renal ultrasound likely represented prominent lobulation of normal renal parenchyma. 2. Mild hepatic steatosis. ASSESSMENT: Proteinuria: Last UPCR 420 mg. There is no hematuria in prior urinalysis. Proteinuria could be from obesity related FSGS less hyperfiltration injury or from untreated hypertension itself. Hypertension/Volume status: He used to be on was diagnosed several years back and used to be on hydrochlorothiazide, which she did not tolerate well. Blood pressure is above target. Obesity: BMI of 46 kg/m2. He has AMANDA and uses CPAP. PLAN: Start on lisinopril 10 mg daily. Repeat renal panel (lab test) after one week. Common side effects discussed including low blood pressure, increased creatinine and/or potassium, and dry cough and allergic reactions. Sometimes it could be associated with severe allergic reactions like swelling of lips/tongue or shortness of breath. In that case, you need to stop the pill and go to the ED. Check UA, UACR, UPCR. Repeat renal panel in one week. Then renal panel, UPCR every 3 months. Avoid/minimize NSAIDs Weight loss advised. Follow-up in 4 months. I spent a total of 65 minutes on the date of the service which included preparing to see the patient, [id number] patient care, completing clinical documentation, obtaining and/or reviewing separately obtained history, performing a medically appropriate examination, counseling and educating the patient/family/caregiver, and ordering medications, tests, or procedures. SIGNATURE: Santy Colón MD PATIENT NAME: Vic Ballesteros OFFICE NUMBER: [phone] CC: REFERRING PROVIDER: Myah Arteaga MD PRIMARY CARE PHYSICIAN: Myah Arteaga MD documented in this encounter [facility] 03-08-2024 Miscellaneous Notes Radiology Service Progress Note DATE OF SERVICE: March 08, 2024 TIME: 8:05 AM PATIENT IDENTITY VERIFICATION COMPLETED USING TWO (2) STANDARD IDENTIFIERS: Name and Date of confirmed by patient verbally. FALL SCREENING: Has the patient had 2 falls in the last year or 1 fall with injury or currently using an Ambulatory Assistive Device (Walker, Cane, Wheelchair, Crutches, etc.)? No PATIENT GENDER DATA: Male PATIENT RELEVANT IMPLANT DATA REVIEWED: Yes PATIENT PRESENTS WITH AN IMPLANTABLE OR ATTACHED LANDSCAPING SUPERVISOR: No ALLERGIES: Reviewed and unchanged CONTRAST ALLERGY: NO. EXAM: MRI - CONTRAST TYPE: GROUP I OR GROUP III RISK FACTORS: N/A CREATININE: Creatinine Date Value Ref Range Status 02/13/2024 0.83 0.73 - 1.22 mg/dL Final 02/09/2024 0.74 0.73 - 1.22 mg/dL Final 06/12/2023 0.79 0.73 - 1.22 mg/dL Final Estimated Glomerular Filtration Rate Date Value Ref Range Status 02/13/2024 101 >=60 mL/min/1.73m Final Comment: Estimated Glomerular Filtration Rate (eGFR) is calculated using the 2020 CKD-EPI creatinine equation. This equation utilizes serum creatinine, sex, and age as parameters. The creatinine assay has traceable calibration to isotope dilution-mass spectrometry. Refer to KDIGO guidelines for clinical interpretation. In patients with unstable renal function, e.g. those with acute kidney injury, the eGFR may not accurately reflect actual GFR. eGFR- Date Value Ref Range Status 12/05/2021 >60 Final P.O.C.T. RESULTS: N/A March 08, 2024 TREATMENT: N/A PERIPHERAL IV DATA: Ambulatory: A peripheral IV was started in the Right with a Angio cath: 22 gauge. RADIOLOGY DEPARTMENT: MR; Exam(s) Completed: Body: Renal SIGNATURE: Lacy Pozo[facility] PATIENT NAME: Vic Ballesteros DATE: March 08, 2024 TIME: 8:05 AM documented in this encounter [facility] 03-08-2024 Progress note Formatting of t his note is different from the original. Radiology Service Progress Note DATE OF SERVICE: March 08, 2024 TIME: 8:05 AM PATIENT IDENTITY VERIFICATION COMPLETED USING TWO (2) STANDARD IDENTIFIERS: Name and Date of confirmed by patient verbally. FALL SCREENING: Has the patient had 2 falls in the last year or 1 fall with injury or currently using an Ambulatory Assistive Device (Walker, Cane, Wheelchair, Crutches, etc.)? No PATIENT GENDER DATA: Male PATIENT RELEVANT IMPLANT DATA REVIEWED: Yes PATIENT PRESENTS WITH AN IMPLANTABLE OR ATTACHED LANDSCAPING SUPERVISOR: No ALLERGIES: Reviewed and unchanged CONTRAST ALLERGY: NO. EXAM: MRI - CONTRAST TYPE: GROUP I OR GROUP III RISK FACTORS: N/A CREATININE: Creatinine Date Value Ref Range Status 02/13/2024 0.83 0.73 - 1.22 mg/dL Final 02/09/2024 0.74 0.73 - 1.22 mg/dL Final 06/12/2023 0.79 0.73 - 1.22 mg/dL Final Estimated Glomerular Filtration Rate Date Value Ref Range Status 02/13/2024 101 >=60 mL/min/1.73m Final Comment: Estimated Glomerular Filtration Rate (eGFR) is calculated using the 2020 CKD-EPI creatinine equation. This equation utilizes serum creatinine, sex, and age as parameters. The creatinine assay has traceable calibration to isotope dilution-mass spectrometry. Refer to KDIGO guidelines for clinical interpretation. In patients with unstable renal function, e.g. those with acute kidney injury, the eGFR may not accurately reflect actual GFR. eGFR- Date Value Ref Range Status 12/05/2021 >60 Final P.O.C.T. RESULTS: N/A March 08, 2024 TREATMENT: N/A PERIPHERAL IV DATA: Ambulatory: A peripheral IV was started in the Right with a Angio cath: 22 gauge. RADIOLOGY DEPARTMENT: MR; Exam(s) Completed: Body: Renal SIGNATURE: Lacy Pozo[facility] PATIENT NAME: Vic Ballesteros DATE: March 08, 2024 TIME: 8:05 AM [facility] 02-27-2024 Telephone encounter Note Pt wrote into office asking same question as below. Did send message back to pt with PCP's response below. Lara Maravilla MA [facility] 02-27-2024 Miscellaneous Notes Pt wrote into office asking same question as below. Did send message back to pt with PCP's response below. Lara Maravilla MA Not necessarily a big issue, that is what the mri is partially for Pt notified and scheduled for MRI. Pt asking if it is normal for his left kidney is 14 cm long and the right kidney is 4 cm in size. Lucita Davalos MA Left message for return call. Leonor Rinaldi MA Has an area of the one kidney that may be just shaped a little differently but they want a different type of scan to look at it. Schedule mri of the kidney documented in this encounter [facility] 02-27-2024 Telephone encounter Note Notified pt of PCP's response in TE where pt asked same question. Lara Maravilla MA [facility] 02-27-2024 Miscellaneous Notes Notified pt of PCP's response in TE where pt asked same question. Lara Maravilla MA documented in this encounter [facility] 02-27-2024 Telephone encounter Note Not necessarily a big issue, that is what the mri is partially for [facility] 02-27-2024 Telephone encounter Note Pt notified and scheduled for MRI. Pt asking if it is normal for his left kidney is 14 cm long and the right kidney is 4 cm in size. Lucita Davalos MA [facility] 02-27-2024 Telephone encounter Note Patient notified. Verbalized understanding. [facility] 02-27-2024 Miscellaneous Notes Patient notified. Verbalized understanding. Testosterone is low but he maryam it a number of weeks too early I want to wait a little before we recheck it. Continue higher dose and do not recheck for at least another month. Make sure drawn first thing in am as well. documented in this encounter [facility] 02-27-2024 Telephone encounter Note Summary: Rx vit D Weekly vit D rx sent in Felicia Broussard APRN.LEATHER SORTER [facility] 02-27-2024 Miscellaneous Notes Summary: Rx vit D Weekly vit D rx sent in Felicia Broussard APRN.LEATHER SORTER documented in this encounter [facility] 02-27-2024 Telephone encounter Note Testosterone is low but he maryam it a number of weeks too early I want to wait a little before we recheck it. Continue higher dose and do not recheck for at least another month. Make sure drawn first thing in am as well. [facility] 02-26-2024 History of Present illness Narrative Endocrinology Virtual Visit Patient states that he is trying to get bariatric surgery-I explained to the patient that this was the medical weight loss clinic and put in a referral for the patient to go to the bariatric surgery clinic.No visit today,no charge. Dr Mark documented in this encounter [facility] 02-26-2024 Instructions Felicia Broussard APRN.LEATHER SORTER - 02/26/2024 9:26 AM EDT GO! to Sleep Instructions Your health care provider has recommended GO! to Sleep, a six-week online program developed by experts at the [facility]. GO! to Sleep follows a similar treatment plan to those used at the [facility] and other [facility] sleep clinics. How It Works The program uses proven methods to help you improve your sleep from the comfort and privacy of your own home. A recent study in the journal SLEEP found that 81 percent of patients who completed a five-week online program for insomnia reported improvement in sleep. What You Get Starting in Lesson 1, you will begin keeping a daily online sleep log. Each day after you fill out your log, you will get a sleep score. Based on your sleep log information and sleep score, you will receive individualized feedback and daily sleep-improvement recommendations. In addition, you will learn the basic science of sleep and why certain behaviors can be detrimental to your sleep. You will also be given activities to help you get the sleep you need, educational articles to help you get the most out of the program, motivational tips, and personalized progress charts. Plus, you will receive six specially crafted audio relaxation practices that will help you manage stress and improve your sleep. Who It's For GO! to Sleep was designed for those experiencing short-term insomnia (development of insomnia in the past one to six months) as well as people with ongoing difficulties with insomnia (six months or longer). If you use sleep medication on an occasional basis, the program will help you learn techniques that will likely help you sleep better without medication. Although GO! to Sleep was not designed for people who take prescription sleep medications on a nightly basis, you can follow the program while on sleep medication and learn tools to help you discontinue medication use. However, the program is not intended to help you implement a plan specifically to taper off your medication. If you are looking for this type of help, discuss this with your prescribing provider and/or ask for a referral to the [facility] for further assessment and an individualized treatment plan. Additionally, if you feel that depression, anxiety or a recent traumatic event may be causing or contributing to your poor sleep, you may want to consult with a mental health professional. The [facility] offers sleep specialists who can help patients taper off medications as well as mental health experts who can help with contributing factors of insomnia. For additional information about this option, call [phone]. To register for GO! to Sleep, visit [email or web address] documented in this encounter [facility] 02-26-2024 History of Present illness Narrative Images from the original note were not included. [facility] New Patient Evaluation PATIENT NAME: Vic Ballesteros DATE OF SERVICE: February 23, 2024 CONSULTING PROVIDER: Myah Arteaga [address] [facility] [id number] REASON FOR CONSULT: Myah Arteaga sends the patient for an opinion about AMANDA. My findings and recommendations will be transmitted electronically via shared medical record to the consulting provider. HPI: Vic Ballesteros is a 58 year old male. Sleep-related history: AMANDA. Uses CPAP, needs new machine, machine is making noises, machine >5 yrs old. Trouble going to sleep for at least the past 6 mos, not getting restful sleep, frequent awakenings in the night. Would like an updated sleep study. His DME is [employer], wants to use a new DME. Nerve damage right foot, constant burning, goes to Pain Mgmt with Dr Gray, that helps with the sharp pains. Accident 1988, head injury and back injury, fell 3 stories. Has anxiety, takes clonazepam prn. Hx nasal septoplasty by Dr Spears yrs ago SLEEP-WAKE SCHEDULE Bedtime: 10-11 PM. He has a hard time falling asleep. Time to fall asleep: 45-60 min Wake time: 7-9 AM After falling asleep: he wakes up 2-3 time(s) per night, because of need to move, fatigue, not in deep sleep. On weekends, he might stay up a little later Average total sleep time (in a 24 hour period): 6 hours. SLEEP-RELATED DETAILS Preferred sleep position: side, back Breathing disturbances and other behaviors during sleep: snoring and moving around a lot. Bruxism: No GERD or aspiration: No Waking up with heart pounding or racing: Yes occas Anxiety or rumination: Yes He reports having an urge to move the legs. The urge to move the legs only occurs in the evening or nighttime. The urge to move the legs begins or worsens during periods of rest or inactivity (e.g. lying or sitting). The urge to move the legs is partially or totally relieved by movements such as walking or stretching, at least as long as the activity continues. The urge to move the legs occurs 7 nights per week and began many years ago. There is no history of iron deficiency or anemia. He has been told that he has leg kicking during sleep. He denies any history of parasomnias. Excessive daytime sleepiness / fatigue is a problem. Excessive Daytime sleepiness/fatigue has been a problem for many years. There is no history of a viral illness or significant head injury prior to the start of daytime sleepiness. He does not report sleep paralysis or sleep-related hallucinations or cataplexy WAKE-RELATED DETAILS He does not work. On disability. He does have difficulty with short-term memory and with concentration. He denies falling asleep or dozing off when driving. He does take naps. Frequency: 3x per week, Duration: 1-2 hrs. Naps are refreshing. He does drink 1-2 caffeinated beverages per day. He has lost 12 pounds since 2 mos. Patient Questionnaires Sleep Scores 02/24/2022 PROMIS CAT Sleep Disturbance PROMIS Sleep Disturbance T-Score 62 (moderate) PROMIS Sleep Disturbance Percentile 12 12/08/2023 PHQ-9 Score 19 12/08/2023 PROMIS Global Health - (T-Scores - the mean of general population = 50. Five points is a clinically meaningful difference.) Physical T-Score 32.4 Mental T-Score 33.8 PAST TREATMENTS: CPAP PRIOR SLEEP STUDIES: 2003 PSG AHI 20 OTHER RELEVANT LABS AND STUDIES: Low vit D yrs ago PAST MEDICAL HISTORY Diagnosis Date ACNE NEC 10/13/2006 Anxiety 01/16/2023 ANXIETY STATE NOS 12/26/2008 Depression Dyslipidemia Essential hypertension 01/16/2023 GERD (gastroesophageal reflux disease) 01/16/2023 History of traumatic brain injury Hypertension Hypogonadism male 10/30/1988 Left knee pain Obesity AMANDA (obstructive sleep apnea) 10/30/2005 cpap PMH - PAST MEDICAL HISTORY OF L 5 nerve injury workman comp PMH - PAST MEDICAL HISTORY OF 10/30/1988 Industrial accident fall Stroke (HCC) Thrombosed external hemorrhoid 10/26/2011 Unspecified site of spinal cord injury without evidence of spinal bone injury 01/25/2013 PAST SURGICAL HISTORY Procedure Laterality Date ABDOMINAL SURGERY HX COLONOSCOPY FLX DX W/COLLJ SPEC WHEN PFRMD 04/17/2012 repeat 10 years COLONOSCOPY SCREENING 06/09/2022 10 year f/u colonoscopy FRACTURE SURGERY HERNIA REPAIR HX JOINT REPLACEMENT HX LAPAROSCOPY SURG CHOLECYSTECTOMY 08/01/2017 Cholecystectomy, lap PAST SURGICAL HISTORY OF Right 1988 wrist fracture after work accident, states still has hardware PAST SURGICAL HISTORY OF 1988 exploratory after accident, opened from pubic bone to breastbone REPAIR NASAL SEPTUM DEFECT RPR 1ST INCAL/VNT HERNIA INCARCERATED 10/28/2019 TOTAL HIP REPLACEMENT Left 2021 VASECTOMY UNI/BI SPX W/POSTOP SEMEN EXAMS Bilateral 1999 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 Tbi (Traumatic Brain Injury) ([facility]ly [facility]) Primary Osteoarthritis of Left Hip History of Palpitations Red Blood Cell Antibody Positive Hepatitis C Antibody Positive in Blood Sensorineural Hearing Loss (Snhl) of Both Ears Subjective Tinnitus of Both Ears Essential Hypertension Gerd (Gastroesophageal Reflux Disease) Depression Anxiety Facial Paresthesia Oropharyngeal Dysphagia Mass of Spine Allergies As of Date: 02/26/2024 Allergen Noted Reaction PENICILLIN G 04/27/2005 Hives SULFA (SULFONAMIDE ANTIBIOTICS) 04/27/2005 Hives CELEBREX [CELECOXIB] 11/11/2009 Rash Fully Assessed 02/26/2024 CURRENT MEDICATIONS: testosterone (ANDROGEL) 50 mg / 5 g (1%) Apply 1 Packet as directed once daily for 180 days. desvenlafaxine ER (PRISTIQ) 50 mg 24 hr tablet Take 50 mg by mouth once daily. testosterone (ANDROGEL) 25 mg/ 2.5g (1%) Apply 1 Packet to affected area once daily for 180 days. Tadalafil (CIALIS) 20 mg tablet TAKE 1 TABLET BY MOUTH 1-2 HOURS BEFORE SEXUAL INTRACOURSE NEEDED CPAP Initiate Auto PAP @ 5-20 cm of water with humidification. Mask (per patient preference) optional chin strap (if indicated) , filters, tubing, humidifier and lifetime supplies. Current machine is 7 years old and needs replaced. Insurance if refusing titration sleep study. acetaminophen (TYLENOL EXTRA STRENGTH) 500 mg tablet Take 2 tablets by mouth every 8 hours as needed for pain. lidocaine 4 % gel Apply 1 Tube to affected area once daily. clonazePAM (KLONOPIN) 1 mg tablet TAKE 1/2 TABLET THREE TIMES A DAY NEEDED Review of Systems Constitutional: Positive for fatigue. Negative for recent unintentional weight change. Gastrointestinal: Negative for heartburn. Musculoskeletal: Positive for uncomfortable leg sensations. Neurological: Positive for memory loss. Negative for headaches. Psychiatric: Positive for depressed mood (sees psychiatry and therapist). SOCIAL HISTORY: Social History Tobacco Use Smoking status: Never Smokeless tobacco: Never Vaping Use Vaping Use: Never used Substance Use Topics Alcohol use: Yes Alcohol/week: 1.0 standard drink of alcohol Types: 1 Cans of Beer (12oz) per week Drug use: No FAMILY HISTORY: FAMILY HISTORY Problem Relation Age of Onset Heart Mother Hypertension Mother Cancer Father lung None Brother None Brother other (lymphoma) Sister other (car accident) Sister There is no family history of sleep disorders. PHYSICAL EXAMINATION: Vital Signs: BP 143/86 Pulse (!) 59 Resp 18 Wt 120.7 kg (266 lb) SpO2 95% BMI 44.26 kg/m PHYSICAL EXAM: General appearance: pleasant, NAD Mental status: alert and oriented, able to provide own history Constitutional: obese Skin: No visible rashes on exposed skin Neuro: No focal deficits observed, no tremors ENT : Posterior airspace: Anderson tongue position 4, retrognathia present. Overbite absent. High arched palate absent. Tongue scalloping/ridging present. Right foot brace IMPRESSION/PLAN: G47.33 AMANDA (obstructive sleep apnea) (primary encounter diagnosis) E55.9 Vitamin D deficiency G25.81 RLS (restless legs syndrome) F51.04 Chronic insomnia G47.00 Frequent nocturnal awakening Vic Ballesteros is a 58 year old male with PMH of moderate AMANDA, chronic insomnia, frequent nocturnal awakenings, RLS, vitamin D deficiency, chronic pain, TBI, HTN, HLD, obesity, GERD, BPH, hypogonadism, anxiety. We'll focus first on reevaluating and treating his sleep apnea, then see how his insomnia and RLS improve once apnea is fully treated. - Polysomnogram (PSG) to re-evaluate for obstructive sleep apnea. May need PAP titration study. [facility] - Discussed with the patient the possible diagnosis, causes, and conditions associated with obstructive sleep apnea. - Avoid driving when drowsy. Recommend that if you are dozing off while driving, that you do not drive until your sleepiness is appropriately treated. -Encouraged healthy lifestyle with adequate sleep ( 7-9 hours per night), diet and exercise. - Results are usually available within 7-10 business days. If you do not hear from us within 1-2 weeks after testing, please contact us directly. - Follow up visit in 4 months. Please schedule this appointment now to ensure your preferred time and location. - Continue autoCPAP for now with old machine that is malfunctioning. New DME [employer]. - Labs for RLS today -- vit d and iron stores - info re Go To Sleep online CBTI program Felicia Broussard APRN.LEATHER SORTER documented in this encounter [facility] 02-23-2024 Telephone encounter Note Patient calling with request of US kidney results. Patient denies any new or worsening symptoms of which a provider is not aware: Yes. Read to patient note from Dr. Arteaga in chart today about ultrasound results and patient verbalized understanding. Conferenced him to [facility] for MRI scheduling NOC closing was given. GO TO THE EMERGENCY ROOM OR CALL 911 IF: * You develop any new symptoms * Your condition worsens * You are concerned or anxious about your condition for any other reason. If you have any questions, you can call Nurse fusion analyst back. [facility] 02-23-2024 Miscellaneous Notes Patient calling with request of US kidney results. Patient denies any new or worsening symptoms of which a provider is not aware: Yes. Read to patient note from Dr. Arteaga in chart today about ultrasound results and patient verbalized understanding. Conferenced him to [facility] for MRI scheduling NOC closing was given. GO TO THE EMERGENCY ROOM OR CALL 911 IF: * You develop any new symptoms * Your condition worsens * You are concerned or anxious about your condition for any other reason. If you have any questions, you can call Nurse fusion analyst back. documented in this encounter [facility] 02-23-2024 Telephone encounter Note Left message for return call. Leonor Rinaldi MA [facility] 02-23-2024 Telephone encounter Note Has an area of the one kidney that may be just shaped a little differently but they want a different type of scan to look at it. Schedule mri of the kidney [facility] 02-21-2024 Telephone encounter Note Phoned patient and given provider's message below with verbalized understanding. [facility] 02-21-2024 Miscellaneous Notes Phoned patient and given provider's message below with verbalized understanding. Let him know mass around spine has not changed since 2008. If he wanted we could have him see neurosurgery again for completeness, however, again it has not changed in all that time. 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 documented in this encounter [facility] 02-21-2024 Telephone encounter Note Let him know mass around spine has not changed since 2008. If he wanted we could have him see neurosurgery again for completeness, however, again it has not changed in all that time. 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 [facility] 02-21-2024 History of Present illness Narrative Radiology Service Progress Note DATE OF SERVICE: February 21, 2024 TIME: 1:18 PM PATIENT IDENTITY VERIFICATION COMPLETED USING TWO (2) STANDARD IDENTIFIERS: Name and Date of confirmed by patient verbally. FALL SCREENING: Has the patient had 2 falls in the last year or 1 fall with injury or currently using an Ambulatory Assistive Device (Walker, Cane, Wheelchair, Crutches, etc.)? No PATIENT GENDER DATA: Male PATIENT RELEVANT IMPLANT DATA REVIEWED: Yes PATIENT PRESENTS WITH AN IMPLANTABLE OR ATTACHED LANDSCAPING SUPERVISOR: No ALLERGIES: Reviewed and unchanged CONTRAST ALLERGY: NO. EXAM: MRI - CONTRAST TYPE: GROUP II PERIPHERAL IV DATA: Ambulatory: A peripheral IV was started in the Right antecubital site with a Angio cath: 22 gauge. RADIOLOGY DEPARTMENT: MR; Exam(s) Completed: Spine: Thoracic spine and Lumbar spine SIGNATURE: RT Oliver(R) PATIENT NAME: Vic Ballesteros DATE: February 21, 2024 TIME: 1:18 PM documented in this encounter [facility] 02-16-2024 Miscellaneous Notes Called and spoke to patient, updated on Dr Arteaga note. Patient voiced understanding. Светлана St LPN February 16, 2024 10:20 AM Dont use extra but that is not causing it. Usually can be an indicate of kidneys leaking protein. Has multiple causes. That is why he is seeing nephrology to sort out what is causing it. Most times is ok, we just need to follow it. Patient informed and verbalized understanding. Sending to schedulers for US appt and Nephro consult. Pt aware he will receive a call to schedule. Patient would like to know what causes protein in the urine? Refers to using premiere protein shakes for his creamer in his coffee. Would like to know if he should be doing this? Advise. Leonor Rinaldi MA Is showing some protein in the urine still. Do renal us and follow up with nephrology to work it up. documented in this encounter [facility] 02-14-2024 Miscellaneous Notes Patient was notified. Labs are ok. They maryam the testosterone early. Still recheck in one month documented in this encounter [facility] 02-13-2024 Miscellaneous Notes Scheduled in [place] 02/20 Please contact patient to schedule. Alicia Hernandes MA placed Patient calls and states that he had gone to [facility] to get MRI done. MRI machines are down. Patient would like to get this re scheduled. Patient states that a new order needs to be placed. Karla Whitten RN documented in this encounter [facility] 02-13-2024 History of Present illness Narrative Patient presents with: Rash HPI: Patient presents today for office visit for itchy rash X 2 weeks. States he started itching on the back of his head. Progressed to itching on the inside of his arms and back of knees. No bumps present but itched so severely he caused bleeding. Then started with bumps on his right buttocks that itched intensely. Currently rash only present on buttocks. Still itches intermittently all over. did purchase some new shampoo around the same time of itching and rash however patient d/c use of this and symptoms still persist. No new foods. No new meds. No sore throat. No fever or chills. No cough. No one else at home is ill. No nausea or abd pain or jaundice. No swollen glands. Some stress. Seeing psychology and psychiatry. Doing better. Not currently suicidal Moods are improved. MEDICATIONS: Current Outpatient Medications Medication Sig iv contrast (will be provided with radiology test) MRI LSP Inject, intravenously, once for 1 dose. No IV access, insert saline lock prior to the beginning of sedation, infusion, injection of imaging exam. Discontinue saline lock post exam. If Pt. has a central line or IVAD, may access for administration according to line specific nursing protocol. Once exam is complete flush line and de-access according to line specific nursing protocol in the MR contrast administration guidelines link. iv contrast (will be provided with radiology test) MRI TSP Inject, intravenously, once for 1 dose. No IV access, insert saline lock prior to the beginning of sedation, infusion, injection of imaging exam. Discontinue saline lock post exam. If Pt. has a central line or IVAD, may access for administration according to line specific nursing protocol. Once exam is complete flush line and de-access according to line specific nursing protocol in the MR contrast administration guidelines link. testosterone (ANDROGEL) 50 mg / 5 g (1%) Apply 1 Packet as directed once daily for 180 days. desvenlafaxine ER (PRISTIQ) 50 mg 24 hr tablet Take 50 mg by mouth once daily. testosterone (ANDROGEL) 25 mg/ 2.5g (1%) Apply 1 Packet to affected area once daily for 180 days. Tadalafil (CIALIS) 20 mg tablet TAKE 1 TABLET BY MOUTH 1-2 HOURS BEFORE SEXUAL INTRACOURSE NEEDED CPAP Initiate Auto PAP @ 5-20 cm of water with humidification. Mask (per patient preference) optional chin strap (if indicated) , filters, tubing, humidifier and lifetime supplies. Current machine is 7 years old and needs replaced. Insurance if refusing titration sleep study. clonazePAM (KLONOPIN) 1 mg tablet TAKE 1/2 TABLET THREE TIMES A DAY NEEDED acetaminophen (TYLENOL EXTRA STRENGTH) 500 mg tablet Take 2 tablets by mouth every 8 hours as needed for pain. lidocaine 4 % gel Apply 1 Tube to affected area once daily. COMPOUNDED PRESCRIPTION Autopap @ 4-20 cm of water with humidification mask (per patient preference) optional chin strap (if indicated) and lifetime supplies DX: AMANDA 327.23 mexiletine (MEXITIL) 150 mg capsule (Patient not taking: Reported on 01/26/2024) No current facility-administered medications for this visit. ALLERGIES: ALLERGIES Allergen Reactions Penicillin G Hives Sulfa (Sulfonamide * Hives Celebrex [Celecoxib] Rash PAST MEDICAL HISTORY Diagnosis Date ACNE NEC 10/13/2006 Anxiety 01/16/2023 ANXIETY STATE NOS 12/26/2008 Depression Dyslipidemia Essential hypertension 01/16/2023 GERD (gastroesophageal reflux disease) 01/16/2023 History of traumatic brain injury Hypertension Hypogonadism male 10/30/1988 Left knee pain Obesity AMANDA (obstructive sleep apnea) 10/30/2005 cpap PMH - PAST MEDICAL HISTORY OF L 5 nerve injury workman comp PMH - PAST MEDICAL HISTORY OF 10/30/1988 Industrial accident fall Stroke (HCC) Thrombosed external hemorrhoid 10/26/2011 Unspecified site of spinal cord injury without evidence of spinal bone injury 01/25/2013 PAST SURGICAL HISTORY Procedure Laterality Date ABDOMINAL SURGERY HX COLONOSCOPY FLX DX W/COLLJ SPEC WHEN PFRMD 04/17/2012 repeat 10 years COLONOSCOPY SCREENING 06/09/2022 10 year f/u colonoscopy FRACTURE SURGERY HERNIA REPAIR HX JOINT REPLACEMENT HX LAPAROSCOPY SURG CHOLECYSTECTOMY 08/01/2017 Cholecystectomy, lap PAST SURGICAL HISTORY OF Right 1988 wrist fracture after work accident, states still has hardware PAST SURGICAL HISTORY OF 1988 exploratory after accident, opened from pubic bone to breastbone REPAIR NASAL SEPTUM DEFECT RPR 1ST INCAL/VNT HERNIA INCARCERATED 10/28/2019 TOTAL HIP REPLACEMENT Left 2021 VASECTOMY UNI/BI SPX W/POSTOP SEMEN EXAMS Bilateral 1999 FAMILY HISTORY Problem Relation Age of Onset Heart Mother Hypertension Mother Cancer Father lung None Brother None Brother other (lymphoma) Sister other (car accident) Sister Social History Tobacco Use Smoking status: Never Smokeless tobacco: Never Vaping Use Vaping Use: Never used Substance Use Topics Alcohol use: Yes Alcohol/week: 1.0 standard drink of alcohol Types: 1 Cans of Beer (12oz) per week Drug use: No Reviewed current medications, allergies, past medical history, surgical history, family history and social history today. REVIEW OF SYSTEMS All other reviewed and negative other than HPI. VITALS: BP 134/74 Pulse 67 Ht 165.1 cm (5' 5) Wt 120.7 kg (266 lb) SpO2 93% BMI 44.26 kg/m Last 4 Encounter Wt Readings: Date: Wt: 01/26/2024 119.1 kg (262 lb 9.6 oz) 12/11/2023 126.2 kg (278 lb 3.2 oz) 07/26/2023 126.6 kg (279 lb) 06/08/2023 125.8 kg (277 lb 6.4 oz) PHYSICAL EXAMINATION: General appearance: Well appearing, alert, in no acute distress, well-hydrated, well nourished. Skin: excoriations of buttock on the left. No definite rash. Head: Normocephalic, no masses, lesions, tenderness or abnormalities Lungs: Lungs clear to auscultation. No wheezing, rhonchi, rales Heart: RRR without murmur, gallop, or rubs. No ectopy Abdomen: Normal abdominal exam, Abdomen soft, non-tender. Bowel sounds normal. No masses, organomegaly Extremities: No deformities, edema, skin discoloration, clubbing or cyanosis. Good capillary refill. Musculoskeletal: No joint swelling, deformity, or tenderness ASSESSMENT/PLAN: 1. Pruritus - ICD9: 698.9, ICD10: L29.9 - add medrol. Antihistamine prn. Discussed risks and benefits of new medication with the patient. Advised them to call if any side effects or questions. Red flags for re-assessment reviewed with patient in detail. Call if symptoms worsen at all or if not better in one to two weeks Reviewed diagnosis and treatment options in detail. Questions were answered. Patient expressed understanding of treatment plan. Doubt his mild proteinuria is significant enough to have any effect but will follow. Getting 24 hour urine for protein. - COMPLETE BLOOD COUNT AND DIFFERENTIAL - COMPREHENSIVE METABOLIC PANEL - SEDIMENTATION RATE, WESTERGREN - METHYLPREDNISOLONE 4 MG TABLETS IN A DOSE PACK Myah Arteaga MD documented in this encounter [facility] 02-12-2024 Telephone encounter Note Printed previously approved forms with new dose. Completed and faxed back to . [facility] 02-12-2024 Miscellaneous Notes Printed previously approved forms with new dose. Completed and faxed back to . Orders placed to recheck testosterone in four to six weeks. Was increased. Pt notified of results and provider message. Pt reports he would like to increase testosterone. Pt voiced understanding in regards to other test results. Mandy Sweeney LPN Message left for return call. Leonor Rinaldi MA His urine shows small amount of protein. Can do a 24 hour urine for protein. His ldl cholesterol is up from previous. Watch the diet. Testosterone is in normal range but low normal. We can continue where we are if he feels well or we can try and increase if he is interested. Let me know what he would like to do documented in this encounter [facility] 02-12-2024 Telephone encounter Note Orders placed to recheck testosterone in four to six weeks. Was increased. [facility] 02-12-2024 Miscellaneous Notes Rec appt documented in this encounter [facility] 02-12-2024 Telephone encounter Note Pt notified of results and provider message. Pt reports he would like to increase testosterone. Pt voiced understanding in regards to other test results. Mandy Sweeney LPN [facility] 02-12-2024 Telephone encounter Note Message left for return call. Leonor Rinaldi MA [facility] 02-12-2024 Telephone encounter Note His urine shows small amount of protein. Can do a 24 hour urine for protein. His ldl cholesterol is up from previous. Watch the diet. Testosterone is in normal range but low normal. We can continue where we are if he feels well or we can try and increase if he is interested. Let me know what he would like to do [facility] 12-11-2023 History of Present illness Narrative Patient presents with: 6 Month Exam HPI: Patient presents today for office visit for follow up. Hx of hypogonadism. Continues on Tadalafil and Robin Gel. Refers to feeling a lot better since starting the Testosterone. Refers to more strength. HTN: Not taking any current medications. Monitors BP at home regularly. States he can tell when it's high. Typically BP is stable. Refers to pain up here and points to left upper chest. States this has been an ongoing issue for years and years. Has had EKG's in past. Refers to an achy pain. Notices it more when he's sitting and relaxing. Episodes are short lasting. Denies sharp pain. Doesn't effect breathing. No different than it has been for years.event records, mulitple stress test etc Denies shortness of breath. Denies headaches. Denies dizziness. Denies palpitations. No syncopal episodes. Right leg with moderate swelling. Wears a brace. No changes from baseline. Denies edema to feet and ankles. AMANDA: Using CPAP nightly. Has trouble going to sleep. Wakes up early in the morning. Feels like he's not getting a restful nights sleep. Refers to possible anxiety. Does not feel rested when waking. Does have daytime fatigue. Takes naps sometimes. Needs new machine. Would like an updated sleep study to see if apnea has gotten better. We had ordered a repeat sleep study in the past. Followed by Pain mgt. Done with PT. Continues with epidural injections every 3 months. Still has some depressive symptoms worsened by his pain. Still seeing psych. MEDICATIONS: Current Outpatient Medications Medication Sig mexiletine (MEXITIL) 150 mg capsule testosterone (ANDROGEL) 25 mg/ 2.5g (1%) Apply 1 Packet to affected area once daily for 180 days. Tadalafil (CIALIS) 20 mg tablet TAKE 1 TABLET BY MOUTH 1-2 HOURS BEFORE SEXUAL INTRACOURSE NEEDED CPAP Initiate Auto PAP @ 5-20 cm of water with humidification. Mask (per patient preference) optional chin strap (if indicated) , filters, tubing, humidifier and lifetime supplies. Current machine is 7 years old and needs replaced. Insurance if refusing titration sleep study. clonazePAM (KLONOPIN) 1 mg tablet TAKE 1/2 TABLET THREE TIMES A DAY NEEDED acetaminophen (TYLENOL EXTRA STRENGTH) 500 mg tablet Take 2 tablets by mouth every 8 hours as needed for pain. lidocaine 4 % gel Apply 1 Tube to affected area once daily. COMPOUNDED PRESCRIPTION Autopap @ 4-20 cm of water with humidification mask (per patient preference) optional chin strap (if indicated) and lifetime supplies DX: AMANDA 327.23 No current facility-administered medications for this visit. ALLERGIES: ALLERGIES Allergen Reactions Penicillin G Hives Sulfa (Sulfonamide * Hives Celebrex [Celecoxib] Rash PAST MEDICAL HISTORY Diagnosis Date ACNE NEC 10/13/2006 Anxiety 01/16/2023 ANXIETY STATE NOS 12/26/2008 Depression Dyslipidemia Essential hypertension 01/16/2023 GERD (gastroesophageal reflux disease) 01/16/2023 History of traumatic brain injury Hypertension Hypogonadism male 10/30/1988 Left knee pain Obesity AMANDA (obstructive sleep apnea) 10/30/2005 cpap PMH - PAST MEDICAL HISTORY OF L 5 nerve injury workman comp PMH - PAST MEDICAL HISTORY OF 10/30/1988 Industrial accident fall Stroke (HCC) Thrombosed external hemorrhoid 10/26/2011 Unspecified site of spinal cord injury without evidence of spinal bone injury 01/25/2013 PAST SURGICAL HISTORY Procedure Laterality Date ABDOMINAL SURGERY HX COLONOSCOPY FLX DX W/COLLJ SPEC WHEN PFRMD 04/17/2012 repeat 10 years COLONOSCOPY SCREENING 06/09/2022 10 year f/u colonoscopy FRACTURE SURGERY HERNIA REPAIR HX JOINT REPLACEMENT HX LAPAROSCOPY SURG CHOLECYSTECTOMY 08/01/2017 Cholecystectomy, lap PAST SURGICAL HISTORY OF Right 1988 wrist fracture after work accident, states still has hardware PAST SURGICAL HISTORY OF 1988 exploratory after accident, opened from pubic bone to breastbone REPAIR NASAL SEPTUM DEFECT RPR 1ST INCAL/VNT HERNIA INCARCERATED 10/28/2019 TOTAL HIP REPLACEMENT Left 2021 VASECTOMY UNI/BI SPX W/POSTOP SEMEN EXAMS Bilateral 1999 FAMILY HISTORY Problem Relation Age of Onset Heart Mother Hypertension Mother Cancer Father lung None Brother None Brother other (lymphoma) Sister other (car accident) Sister Social History Tobacco Use Smoking status: Never Smokeless tobacco: Never Vaping Use Vaping Use: Never used Substance Use Topics Alcohol use: Yes Alcohol/week: 1.0 standard drink of alcohol Types: 1 Cans of Beer (12oz) per week Drug use: No Reviewed current medications, allergies, past medical history, surgical history, family history and social history today. REVIEW OF SYSTEMS All other reviewed and negative other than HPI. HEALTH MAINTENANCE: Reviewed health maintenance issues today and recommended the following in detail. BP Controlled (<130/80) Never done Covid-19 Vaccine( season) due on 06/30/2023 VITALS: BP 130/88 Pulse (!) 56 Ht 165.1 cm (5' 5) Wt 126.2 kg (278 lb 3.2 oz) SpO2 94% BMI 46.29 kg/m Last 4 Encounter Wt Readings: Date: Wt: 07/26/2023 126.6 kg (279 lb) 06/08/2023 125.8 kg (277 lb 6.4 oz) 01/18/2023 126.1 kg (278 lb) 01/16/2023 124.7 kg (275 lb) PHYSICAL EXAMINATION: General appearance: Well appearing, alert, in no acute distress, well-hydrated, well nourished. Skin: Skin color, texture, turgor normal, no suspicious rashes or lesions Head: Normocephalic, no masses, lesions, tenderness or abnormalities Lungs: Lungs clear to auscultation. No wheezing, rhonchi, rales Heart: RRR without murmur, gallop, or rubs. No ectopy Abdomen: Normal abdominal exam, Abdomen soft, non-tender. Bowel sounds normal. No masses, organomegaly Extremities: No deformities, edema, skin discoloration, clubbing or cyanosis. Good capillary refill. Musculoskeletal: No joint swelling, deformity, or tenderness Peripheral pulses: Normal ASSESSMENT/PLAN: 1. Essential hypertension - ICD9: 401.9, ICD10: I10 (primary diagnosis) - Controlled - Continue current medications 2. Secondary male hypogonadism - ICD9: 257.2, ICD10: E29.1 - check labs in two months. - CBC + DIFF - TESTOSTERONE TOTAL 3. Traumatic brain injury with loss of consciousness, subsequent encounter - ICD9: V58.89, 854.06, ICD10: S06.9X9D - stable. 4. Mixed hyperlipidemia - ICD9: 272.2, ICD10: E78.2 - Controlled - Counseled on healthy diet and regular exercise - COMP METABOLIC PANEL - LIPID PANEL BASIC 5. AMANDA (obstructive sleep apnea) - ICD9: 327.23, ICD10: G47.33 - see sleep meds. - CONSULT TO SLEEP MEDICINE - ADULT 6. Gastroesophageal reflux disease, unspecified whether esophagitis present - ICD9: 530.81, ICD10: K21.9 - stable. 7. Right foot drop - ICD9: 736.79, ICD10: M21.371 Wears af 8. Medication monitoring encounter - ICD9: V58.83, ICD10: Z51.81 - CBC + DIFF - LIPID PANEL BASIC - TESTOSTERONE TOTAL 9. Screening for prostate cancer - ICD9: V76.44, ICD10: Z12.5 - PSA/PROSTSPECAG SCRN Myah Arteaga MD documented in this encounter [facility] 09-20-2023 Miscellaneous Notes Received fax back from [employer] stating this drug does not need PA covered due to dx. Called and spoke to pharmacy management program and verified response on fax correct. Pharmacist Advised will give no more than 6 tablets per 30 days if desiring more will have to pay out of pocket. He stated this is standard across the board for any patient needing rx for ED. Patient aware and he will call [facility] thinks issue is they are trying to fill to early for packaging Lacy Choudhury Ma Spoke to patient who does get medication through [employer] due to accident in 1988. Completed [facility] form in covermymeds and faxed Flores: [id number] Lacy Choudhury Ma Received fax from pharmacy PA needed for Cialis but looks like [place] running under [employer] comp. Completed electronic PA with [facility] Lacy Choudhury Ma documented in this encounter [facility] 07-19-2023 Miscellaneous Notes Scheduled. Patient returned call, asking if he can get in next Wed07/26? States he needs to get in as soon as possible. No available slots to book in at this time. Please advise. Left message for patient he needs to set up a [facility] visit with PCP. Need to discuss medication change (testosterone) in order to have documentation to get medication approved. (Form in nurse office.) documented in this encounter [facility] 07-11-2023 Miscellaneous Notes Ok. Lets try and see if they will let us do an autopap machine follow up after Patient notified. States he thinks his current machine is about 7 years old, does state this is his second machine. Let him know his insurance company is refusing a titration study even though he already has a machine. Does he know how old his current machine is. If it is really old, we can see if they would approve a new autopap machine or they will cover a home sleep study on his current machine. ----- Message from Matt Floyd sent at 07/10/2023 4:28 PM EDT ----- Regarding: Confidential // Denial: Pt. Vic Ballesteros // Good afternoon, The below information is for a peer to peer or appeal for a service you have requested. Patient Information Patient Last Name LESLI Patient First NameVIC PATEL Date of [id number] Clinical Clearance / Financial Clearance StatusPending Clinical Clearance Notifications are supported by our jaime policy and used when an immediate payer source is not available. The CCN process can allow cases to be completed while still working to obtain payer's authorization due to urgency or medical necessity. This process should not preclude us from completing the steps needed to secure authorization such us P2P and appeal as this will still allow us to receive the appropriate reimbursement. Denial Overview Denial TypePayer Clinical Guidelines Not Met Denial RationaleYour provider is planning sleep testing for you at a sleep center with an attendant watching. We are told you have sleep apnea and you are using a CPAP machine or tried one in the past. We reviewed the following: Your provider's medical notes Your health plan's benefit document (a listing of your health plan's benefits and what it pays for) Your health plan's medical policy regarding sleep studies. We found that this request does not meet the following criteria: You are less than age 18 years. You have a significant medical condition that prevents accurate home sleep testing. You have had a prior home sleep test that was negative or inadequate, yet you have symptoms that suggest a sleep disorder. The medical records from your provider show that a second sleep disorder is suspected. 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 We did not receive a download report from your current machine on how well it is working. Based upon our review, we are not able to approve your request for a diagnostic 'titration study. Under your health plan, diagnostic 'titration sleep test is not medically necessary for your condition. You are eligible for home sleep testing (HST) to check your current apnea level. A new auto-adjusting breathing machine can be requested if needed. Mask changes, increasing your machine humidification can be done at home with your current machine. The positioning to avoid air swallowing, pressure adjustments and practicing using your sleep machine can be done at home. This all can be done with your current machine or a new auto-adjusting sleep breathing machine if needed. Date of Service 07/17/2023 Scheduled Is Peer to Peer Available? (Instructions below)Yes Peer to Peer DeadlineUntil 07/18/2023 Appeal Deadline (Instructions below)60 calendar days from denial date on 06/30/2023 Insurance Case Information Insurance [facility] Patient's Insurance Case#[id number] Ordering Provider MYAH ARTEAGA Approved Services N/A Denied Services [id number] PSG Alternative Recommendation N/A #Service which can be approved in place of denied service. Clinical Documentation Provided 06/12/2023. LIPID PANEL BASIC 06/12/2023... COMP METABOLIC PANEL 06/12/2023.. CBC + DIFF 06/08/2023 Office visit diane Glass MD for Oropharyngeal Dysphagia ( Primary.. 10/27/2022 Office Visit with Myah Campbell MD for Oropharyngeal dysphagia (Primary... 04/27/2022 Office Visit with Myah Arteaga MD for Primary hypertension (Primary Dx);_ Peer to Peer Instructions Peer to Peer Does Peer to Peer need to be scheduled?Yes Who can complete the Peer to Peer?, PA or EDITOR DEPARTMENT Additional Peer to Peer InstructionsYou can call for the peer to peer at the date and time of your convenience Appeal Instructions Appeal Address[address] [address] [place] [address] Appeal Fax#Standard Appeal / Expedited appeal fax: [phone] Required Form(s)Please see attached or can be found at [email or web address] Additional Appeal InstructionsAppeal form required Insurance requires a formal appeal form filled out if you would like to submit a written appeal and it needs to be signed by the patient Facility Information Location [facility] [id number] Tax ID#[id number] Matt Ahuja documented in this encounter [facility] 07-07-2023 Discharge summary Note Date/Time July 07, 2023 10:02am [facility] Physical Therapy [facility] [facility] [place] [address] / REHABILITATION SERVICES DISCHARGE SUMMARY MR#: [id number] Acct: [id number] Name: VIC BALLESTEROS Jr. Rep #: [id number] : 1965 57 From: Carlos Alberto Mo DPT, OCS, CSCS Referring Dr.: Dr. Geneva Gray MD Status: REG RCR Insurance: [facility] [id number] [place] [employer] PAY INSURANCE Discharge Summary D/C summary: It has been my pleasure to treat VIC BALLESTEROS Jr. referred by Dr. Geneva Gray MD, with the diagnosis of Neck pain for a total of 11 visit(s). Discharge Date: 07/07/23 Please see the following information for a summary of their discharge status. Subjective Subjective: Feels much looser. has HEP that keeps him loose. Has not had back pain in last week. R leg nerve pain persists and still get caudal epidurals which are not effective. Would like to get LB ex program. Feels current ROM neck exercises will keep neck pain at bay. Pain scapular pain.: Pain Intensity (Out of 10): 2 Overall Improvement % Improvement: 100 Objective Objective/Function: 70 degree extension neck adn 72 B rotation without pain or hesitation. Improved posture and no tenderness in soft tissue in cervical area. Doing well and will continue via HEP. May benefit from low back e valuation to get to an I gym program and will ask doctor for script for that. Goals Goal 1:: sleep without waking at home Goal Progress: neck OK, 50% better Goal 2:: Pain at rest 0 and 2/10 at worst in thoracic spine Goal Progress: Goal Met Goal 3:: Neck oswestry score 5 or less. Goal Progress: Progressing Goal 4:: I approp HEP to limit future problems. Goal Progress: Goal Met for neck Plan Plan: d/c to neck HEP D/C Information Discharge Comments: pt to doctor on monday and doing well in neck. 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 d/c sentence: If there are questions or concerns regarding this patient's physical therapy, please feel free to call me at [phone]. Thank you for the referral of thispatient. Sincerely, Carlos Alberto Mo, FABBY, OCS, CSCS Balance/Gait/Functional tests Balance/Special Test Scores Oswestry Neck Score: 11 Improvement % Improvement: 100 <Electronically signed by Carlos Alberto Mo DPT, OCS, CSCS> 07/07/23 1002 CC: Dr. Geneva Gray MD; Dr. Myah Arteaga MD ~ EBG Signed [facility] Work Phone: 1(475) 648-905508-29-2023 History of Present illness Narrative* Hesham Hunt MD - 06/27/2023 12:36 PM EDT June 27, 2023 Standing PSG Orders signed in the last 90 days None Future PSG Orders signed in the last 90 days Ordered Auth. provider PAP TITRATION PSG (CPAP, BIPAP, ASV) [[id number]] 06/08/23 Myah Arteaga MD Assoc. diagnoses: AMANDA (obstructive sleep apnea) [G47.33] Q: Indications: A: Obstructive sleep apnea Q: STOP-BANG conditions - Select All That Apply: A: GENDER = male A2: BMI > 35 kg/m2 A3: AGE > 50 A4: high blood PRESSURE A5: SNORING that is loud or disruptive A6: TIREDNESS, fatigue or sleepiness during the day A7: OBSERVED sleep apnea Q: Special Needs (e.g.behavior, non-ambulatory, >450 lbs)?: A: No Q: Prior PAP (CPAP or Bilevel PAP) Use?: A: Yes Q: Sleep History: A: Sleep apnea A2: Daytime sleepiness Q: Current use of supplemental oxygen during sleep period?: A: No Q: Add supplemental oxygen if needed per sleep lab policy?: A: Yes All Prior Sleep Studies (past 365 days) Some values may be hidden. Unless noted otherwise, only the newest values recorded on each date aredisplayed. Sleep Studies PAP TITRATION PSG (CPAP, BIPAP, ASV) Future Expected: Expires: 07/07/24 BMI Readings from Last 2 Encounters: 06/08/23 : 46.16 kg/m 01/18/23 : 46.26 kg/m PAST MEDICAL HISTORY Diagnosis Date ACNE NEC 10/13/2006 Anxiety 01/16/2023 ANXIETY STATE NOS 12/26/2008 Depression Dyslipidemia Essential hypertension 01/16/2023 GERD (gastroesophageal reflux disease) 01/16/2023 History of traumatic brain injury Hypertension Hypogonadism male 10/30/1988 Left knee pain Obesity AMANDA (obstructive sleep apnea) 10/30/2005 cpap PMH - PAST MEDICAL HISTORY OF L 5 nerve injury workman comp PMH - PAST MEDICAL HISTORY OF 10/30/1988 Industrial accident fall Stroke (HCC) Thrombosed external hemorrhoid 10/26/2011 Unspecified site of spinal cord injury without evidence of spinal bone injury 01/25/2013 The medical record was reviewed to determine if the proposed sleep study conforms to the [facility] Practice Parameters for the Indications for Polysomnography and Related Procedures, or if the sleep studyis indicated for other reasons. Indications for study: AMANDA previously diagnosed: Evaluate response to PAP therapy Sleep study to be performed: Split Study-Polysomnogram with PAP titration Special instructions: Split night study if AHI > 15. Start with 4 cmH2O then titrate per protocol Target REM/supine sleep Add EtCO2 and Transcutaneous CO2 if available Clinic notes - Using CPAP nightly. Possibly needing new machine On APAP 4-20 [facility] Staff Note: I have read the above protocol, edited as needed, and agree to the plan. Hesham Hunt MD 1:18 PM, 06/27/2023 * Sadia Alexandre - 06/27/2023 10:04 AM EDT June 27, 2023 An order has been received for PAP titration study from Dr. Arteaga, Myah Glass, , a B. [facility] Staff. Visit prep complete. Comments :No The sleep study is scheduled for 07/17. Insurance: Payor: [place] [employer] / Plan: [facility] CHOICE PLUS / Product Type: HMO / Payer/Plan Subscr Sex Relation Sub. Ins. ID Effective Group Num 1. [employer]* DIPESH BALLESTEROS 07/22/1967 Female Spouse [id number] 05/30/19 [id number] [address] 2. [facility]* VIC BALLESTEROS 1965 Male Self [phone] 10/07/1989 ONE VICENTE Alexandre documented in this encounter[facility] History of Present illness Narrative* Myah Arteaga MD - 06/08/2023 9:20 AM EDT Patient presents with: 6 Month Exam HPI: Patient presents today for office visit for follow up. HTN: Stopped HCTZ due to making him feel hyper Readings are good on most recent readings. Intermittent chest aching. Has been there for some time. Has had numerous ekgs. Had stress for same in 2017. Offered to repeat testing and declines. He feels it is a muscle. Red flags for re-assessment reviewed with patient in detail. Denies shortness of breath Right leg with moderate swelling X 2wks. Wears a brace on that leg. Has since gone down. No edema to feet or ankles AMANDA: Using CPAP nightly. Possibly needing new machine. He states the machine is getting old Sleeping well through the night just not feeling rested when he wakes up like he used to. Daytime fatigue. Some snoring now. GERD: Stopped his Omeprazole. Symptoms controlled without it. Had speech eval including egd . Diagnosed with oropharyngeal dysphagia. Saw gi and ent. Using exercises to slow down eating. PSYCH: Emotionally is doing well. Still seeing psych. No longer taking Amitriptyline. Currently using Trazodone at bedtime. Followed by Pain mgt. Doing PT at [facility]. Has not been following with endo for his prolactin and testosterone. They felt his prolactin was multifactorial. Wants to just check levels for now. MEDICATIONS: Current Outpatient Medications Medication Sig traZODone (DESYREL) 50 mg tablet Take 50 mg by mouth daily at bedtime. meloxicam (MOBIC) 7.5 mg tablet Take 7.5 mg by mouth once daily. clonazePAM (KLONOPIN) 1 mg tablet TAKE 1/2 TABLET THREE TIMES A DAY NEEDED acetaminophen (TYLENOL EXTRA STRENGTH) 500 mg tablet Take 2 tablets by mouth every 8 hours as needed for pain. Tadalafil (CIALIS) 20 mg tab(s) TAKE 1 TABLET BY MOUTH 1-2 HOURS BEFORE SEXUAL INTRACOURSE NEEDED lidocaine 4 % gel Apply 1 Tube to affected area once daily. COMPOUNDED PRESCRIPTION Autopap @ 4-20 cm of water with humidification mask (per patient preference) optional chin strap (if indicated) and lifetime supplies DX: AMANDA 327.23 No current facility-administered medications for this visit. ALLERGIES: ALLERGIES Allergen Reactions Penicillin G Hives Sulfa (Sulfonamide * Hives Celebrex [Celecoxib] Rash PAST MEDICAL HISTORY Diagnosis Date ACNE NEC 10/13/2006 Anxiety 01/16/2023 ANXIETY STATE NOS 12/26/2008 Depression Dyslipidemia Essential hypertension 01/16/2023 GERD (gastroesophageal reflux disease) 01/16/2023 History of traumatic brain injury Hypertension Hypogonadism male 10/30/1988 Left knee pain Obesity AMANDA (obstructive sleep apnea) 10/30/2005 cpap PMH - PAST MEDICAL HISTORY OF L 5 nerve injury workman comp PMH - PAST MEDICAL HISTORY OF 10/30/1988 Industrial accident fall Stroke (HCC) Thrombosed external hemorrhoid 10/26/2011 Unspecified site of spinal cord injury without evidence of spinal bone injury 01/25/2013 PAST SURGICAL HISTORY Procedure Laterality Date ABDOMINAL SURGERY HX COLONOSCOPY FLX DX W/COLLJ SPEC WHEN PFRMD 04/17/2012 repeat 10 years COLONOSCOPY SCREENING 06/09/2022 10 year f/u colonoscopy FRACTURE SURGERY HERNIA REPAIR HX JOINT REPLACEMENT HX LAPAROSCOPY SURG CHOLECYSTECTOMY 08/01/2017 Cholecystectomy, lap PAST SURGICAL HISTORY OF Right 1988 wrist fracture after work accident, states still has hardware PAST SURGICAL HISTORY OF 1988 exploratory after accident, opened from pubic bone to breastbone REPAIR NASAL SEPTUM DEFECT RPR 1ST INCAL/VNT HERNIA INCARCERATED 10/28/2019 TOTAL HIP REPLACEMENT Left 2021 VASECTOMY UNI/BI SPX W/POSTOP SEMEN EXAMS Bilateral 1999 FAMILY HISTORY Problem Relation Age of Onset Heart Mother Hypertension Mother Cancer Father lung None Brother None Brother other (lymphoma) Sister other (car accident) Sister Social History Tobacco Use Smoking status: Never Smokeless tobacco: Never Vaping Use Vaping Use: Never used Substance Use Topics Alcohol use: Yes Alcohol/week: 1.0 standard drink of alcohol Types: 1 Cans of Beer (12oz) per week Drug use: No Reviewed current medications, allergies, past medical history, surgical history, family history andsocial history today. REVIEW OF SYSTEMS All other reviewed and negative other than HPI. HEALTH MAINTENANCE: Reviewed health maintenance issues today and recommended the following in detail. BP CONTROLLED (<130/80) Never done COVID-19 VACCINE(3 - Pfizer series) due on 08/06/2021 VITALS: BP 128/82 Pulse 61 Ht 165.1 cm (5' 5) Wt 125.8 kg (277 lb 6.4 oz) SpO2 96% BMI 46.16 kg/m Last 4 Encounter Wt Readings: Date: Wt: 01/18/2023 126.1 kg (278 lb) 01/16/2023 124.7 kg (275 lb) 12/09/2022 126.6 kg (279 lb) 10/27/2022 124.7 kg (275 lb) PHYSICAL EXAMINATION: General appearance: Well appearing, alert, in no acute distress, well-hydrated, well nourished. Skin: Skin color, texture, turgor normal, no suspicious rashes or lesions Head: Normocephalic, no masses, lesions, tenderness or abnormalities Neck: Supple, no adenopathy; thyroid symmetric, normal size, no bruits Lungs: Lungs clear to auscultation. No wheezing, rhonchi, rales Heart: RRR without murmur, gallop, or rubs. No ectopy Abdomen: Normal abdominal exam, Abdomen soft, non-tender. Bowel sounds normal. No masses, organomegaly Extremities: No deformities, edema, skin discoloration, clubbing or cyanosis. Good capillary refill. Musculoskeletal: No joint swelling, deformity, or tenderness ASSESSMENT/PLAN: 1. Oropharyngeal dysphagia - ICD9: 787.22, ICD10: R13.12 (primary diagnosis) - follow speech therapy eval. 2. 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 3. Essential hypertension - ICD9: 401.9, ICD10: I10 - Controlled - Continue current medications 4. Mixed hyperlipidemia - ICD9: 272.2, ICD10: E78.2 - Controlled - Continue current medications - Counseled on healthy diet and regular exercise 5. AMANDA (obstructive sleep apnea) - ICD9: 327.23, ICD10: G47.33 - -recheck titration. - PAP TITRATION PSG (CPAP, BIPAP, ASV) 6. DDD (degenerative disc disease), lumbar - ICD9: 722.52, ICD10: M51.36 - per pain management. 7. Depression, unspecified depression type - ICD9: 311, ICD10: F32.A - stable. Myah Arteaga MD RTO in six months or prn. Discussed that remotely he had a small intradural extramedullary soft tissues mass at T12-L1. Had it worked up and was felt to be benign. Saw ALEKS Griffith, neurosurgery in the past. He had him see another specialist as well. He had elected not to follow. Offered to do another mri. He declines. Was seenon previous MRI of lumbar. Discussed that we could do a follow up. For now he does not want to pursue. Red flags for re-assessment reviewed with patient in detail. documented in this encounter[facility] History of Past illness Narrative* Problem Noted Date Diagnosed Date Resolved Date Laceration of thumb 06/07/2023 06/07/2023 12/11/19 24 Abrasion of face 04/20/2023 06/07/2023 12/11/2023 RUQ pain 07/31/2017 08/23/2017 Overview: Added automatically from request for surgery [id number] Impotence of organic origin 05/01/2013 03/20/2017 Unspecified constipation 04/17/201205/2015 PAIN ABDOMEN( Left Lower Quadrant) 12/26/2008 04/15/2011 Hemorrhage of rectum and anus 12/26/2008 08/06/2015 Benign neoplasm of skin of u pper limb, including shoulder 11/13/2006 04/15/2011 Sebaceous cyst 10/13/2006 04/15/2011 FOLLICULITIS////HAIR DISEASES NEC 10/13/2006 04/15/2011 Neoplasm of uncertain behavior of skin 10/13/2006 04/15/2011 SOLAR LENTIGENES///DYSCHROMIA OTHER 10/13/2006 04/15/2011 documented as of this encounter (statuses as of 12/11/2023) [facility] History of Past illness Narrative* Problem Noted Date Diagnosed Date Resolved Date Laceration of thumb 06/07/2023 06/07/2023 12/11/19 24 Abrasion of face 04/20/2023 06/07/2023 12/11/2023 RUQ pain 07/31/2017 08/23/2017 Overview: Added automatically from request for surgery [id number] Impotence of organic origin 05/01/2013 03/20/2017 Unspecified constipation 04/17/201205/2015 PAIN ABDOMEN( Left Lower Quadrant) 12/26/2008 04/15/2011 Hemorrhage of rectum and anus 12/26/2008 08/06/2015 Benign neoplasm of skin of u pper limb, including shoulder 11/13/2006 04/15/2011 Sebaceous cyst 10/13/2006 04/15/2011 FOLLICULITIS////HAIR DISEASES NEC 10/13/2006 04/15/2011 Neoplasm of uncertain behavior of skin 10/13/2006 04/15/2011 SOLAR LENTIGENES///DYSCHROMIA OTHER 10/13/2006 04/15/2011 documented as of this encounter (statuses as of 01/10/2024) [facility] History of Past illness Narrative* Problem Noted Date Diagnosed Date Resolved Date Laceration of thumb 06/07/2023 06/07/2023 12/11/19 24 Abrasion of face 04/20/2023 06/07/2023 12/11/2023 RUQ pain 07/31/2017 08/23/2017 Overview: Added automatically from request for surgery [id number] Impotence of organic origin 05/01/2013 03/20/2017 Unspecified constipation 04/17/201205/2015 PAIN ABDOMEN( Left Lower Quadrant) 12/26/2008 04/15/2011 Hemorrhage of rectum and anus 12/26/2008 08/06/2015 Benign neoplasm of skin of u pper limb, including shoulder 11/13/2006 04/15/2011 Sebaceous cyst 10/13/2006 04/15/2011 FOLLICULITIS////HAIR DISEASES NEC 10/13/2006 04/15/2011 Neoplasm of uncertain behavior of skin 10/13/2006 04/15/2011 SOLAR LENTIGENES///DYSCHROMIA OTHER 10/13/2006 04/15/2011 documented as of this encounter (statuses as of 02/13/2024) [facility] History of Past illness Narrative* Problem Noted Date Diagnosed Date Resolved Date Laceration of thumb 06/07/2023 06/07/202312/11/20 24 Abrasion of face 04/20/2023 06/07/2023 12/11/2023 RUQ pain 07/31/2017 08/23/2017 Overview: Added automatically from request for surgery [id number] Impotence of organic origin 05/01/2013 03/20/2017 Unspecified constipation 04/17/201205/2015 PAIN ABDOMEN( Left Lower Quadrant) 12/26/2008 04/15/2011 Hemorrhage of rectum and anus 12/26/2008 08/06/2015 Benign neoplasm of skin of u pper limb, including shoulder 11/13/2006 04/15/2011 Sebaceous cyst 10/13/2006 04/15/2011 FOLLICULITIS////HAIR DISEASES NEC 10/13/2006 04/15/2011 Neoplasm of uncertain behavior of skin 10/13/2006 04/15/2011 SOLAR LENTIGENES///DYSCHROMIA OTHER 10/13/2006 04/15/2011 documented as of this encounter (statuses as of 02/14/2024) [facility] History of Past illness Narrative* Problem Noted Date Diagnosed Date Resolved Date Laceration of thumb 06/07/2023 06/07/2023 12/11/19 24 Abrasion of face 04/20/2023 06/07/2023 12/11/2023 RUQ pain 07/31/2017 08/23/2017 Overview: Added automatically from request for surgery [id number] Impotence of organic origin 05/01/2013 03/20/2017 Unspecified constipation 04/17/201205/2015 PAIN ABDOMEN( Left Lower Quadrant) 12/26/2008 04/15/2011 Hemorrhage of rectum and anus 12/26/2008 08/06/2015 Benign neoplasm of skin of u pper limb, including shoulder 11/13/2006 04/15/2011 Sebaceous cyst 10/13/2006 04/15/2011 FOLLICULITIS////HAIR DISEASES NEC 10/13/2006 04/15/2011 Neoplasm of uncertain behavior of skin 10/13/2006 04/15/2011 SOLAR LENTIGENES///DYSCHROMIA OTHER 10/13/2006 04/15/2011 documented as of this encounter (statuses as of 02/14/2024) [facility] History of Past illness Narrative* Problem Noted Date Diagnosed Date Resolved Date Laceration of thumb 06/07/2023 06/07/2023 12/11/19 24 Abrasion of face 04/20/2023 06/07/2023 12/11/2023 RUQ pain 07/31/2017 08/23/2017 Overview: Added automatically from request for surgery [id number] Impotence of organic origin 05/01/2013 03/20/2017 Unspecified constipation 04/17/201205/2015 PAIN ABDOMEN( Left Lower Quadrant) 12/26/2008 04/15/2011 Hemorrhage of rectum and anus 12/26/2008 08/06/2015 Benign neoplasm of skin of u pper limb, including shoulder 11/13/2006 04/15/2011 Sebaceous cyst 10/13/2006 04/15/2011 FOLLICULITIS////HAIR DISEASES NEC 10/13/2006 04/15/2011 Neoplasm of uncertain behavior of skin 10/13/2006 04/15/2011 SOLAR LENTIGENES///DYSCHROMIA OTHER 10/13/2006 04/15/2011 documented as of this encounter (statuses as of 02/14/2024) [facility] History of Past illness Narrative* Problem Noted Date Diagnosed Date Resolved Date Laceration of thumb 06/07/2023 06/07/2023 12/11/19 24 Abrasion of face 04/20/2023 06/07/2023 12/11/2023 RUQ pain 07/31/2017 08/23/2017 Overview: Added automatically from request for surgery [id number] Impotence of organic origin 05/01/2013 03/20/2017 Unspecified constipation 04/17/201205/2015 PAIN ABDOMEN( Left Lower Quadrant) 12/26/2008 04/15/2011 Hemorrhage of rectum and anus 12/26/2008 08/06/2015 Benign neoplasm of skin of u pper limb, including shoulder 11/13/2006 04/15/2011 Sebaceous cyst 10/13/2006 04/15/2011 FOLLICULITIS////HAIR DISEASES NEC 10/13/2006 04/15/2011 Neoplasm of uncertain behavior of skin 10/13/2006 04/15/2011 SOLAR LENTIGENES///DYSCHROMIA OTHER 10/13/2006 04/15/2011 documented as of this encounter (statuses as of 02/14/2024) [facility] of Past illness Narrative* Problem Noted Date Diagnosed Date Resolved Date Laceration of thumb 06/07/2023 06/07/2023 12/11/19 24 Abrasion of face 04/20/2023 06/07/2023 12/11/2023 RUQ pain 07/31/2017 08/23/2017 Overview: Added automatically from request for surgery [id number] Impotence of organic origin 05/01/2013 03/20/2017 Unspecified constipation 04/17/201205/2015 PAIN ABDOMEN( Left Lower Quadrant) 12/26/2008 04/15/2011 Hemorrhage of rectum and anus 12/26/2008 08/06/2015 Benign neoplasm of skin of u pper limb, including shoulder 11/13/2006 04/15/2011 Sebaceous cyst 10/13/2006 04/15/2011 FOLLICULITIS////HAIR DISEASES NEC 10/13/2006 04/15/2011 Neoplasm of uncertain behavior of skin 10/13/2006 04/15/2011 SOLAR LENTIGENES///DYSCHROMIA OTHER 10/13/2006 04/15/2011 documented as of this encounter (statuses as of 02/16/2024) [facility] History of Present illness Narrative* Augusta Altamirano LPN - 05/26/2023 10:53 AM EDT Patient presents for Hepatitis B and Shingrix vaccines. Denies any problems at this time. Toleratedinjection well. Augusta Altamirano LPN documented in this encounterTri[facility]06-[facility] History of Present illness Narrative* Augusta Altamirano LPN - 04/26/2023 3:25 PM EDT Patient presents for Hepatitis B vaccine. Denies any problems at this time. Tolerated injection well. Augusta Altamirano LPN documented in this encounterTri[facility]06-26-[facility]23 Miscellaneous Notes* Telephone Encounter - Augusta Altamirano LPN - 04/24/2023 11:53 AM EDT Patient scheduled for nurse visit 04/26/23 to receive Hepatitis B vaccine. Please place order at this time. Augusta Altamirano LPN documented in this encounterTri[facility]06-17-[address] Kinney [facility] April 15, 2023 5:29pm Note Date/Time April 15, 2023 5:20 pm [facility] Medical Records Department [address] [place] [id number] Emergency Department Summary 04/15/23 MR#: [id number] Acct: [id number] Name: VIC BALLESTEROS Rep #:[id number] : 1965 [id number] From: Nikhil Kinney DO PCP: Dr. Myah Arteaga MD Status:PRE E R Location: ED HPI History of Present Illness Chief Complaint: Wound Narrative Narrative: Patient is a 57-year-old male who is presenting to the ER today with complaint of multiple lacerations/superficial abrasions to his left cheek and right arm. Patient is right-hand dominant. Patient is retired. Patient is not diabetic that he is aware of. Patient was using a grinder tender at home, he was holding it above his head working on his fireplace. Somehow the grinder tender kicked back at him, patient lost the oracle ebs architect of it, and it hit his left cheek and right upper lateral arm. Patient has an area of 6 x 4 cm of multiple superficial abrasions to his left cheek. Patient has an area of 8 x 2 cm to his right upper lateral arm of multiple abrasions with a single laceration 3 cm, approximately 1 to 2 mmdeep. It is 2 mm wide. Patient does not know when his last tetanus shot is. Patient states he does not believe he is diabetic. This is not Worker's Comp. injury, he was at home working. Patient has no headache. No loss conscious. Patient has no other acute injury at this time. Patient drove himself to the ER. [facility] Medical History (Updated 04/15/23 @ 17:[address] Nikhil Kinney DO) Anxiety Depression Hypertension Home Medications diclofenac sodium 1 % topical gel 4 gm topical Q6H PRN Pain Or Fever 07/31/17 [History Last Taken Unknown] tadalafil 20 mg tablet 20 mg PO ONCE PRN ed 03/20/18 [History Last Taken Unknown] hydrochlorothiazide 12.5 mg tablet 12.5 mg PO DAILY #30 tabs 02/21/22 [Rx Last Taken Unknown] mupirocin 2 % topical ointment 1 applic topical TID 14 days #22 grams 04/15/23 [Rx Last Taken Unknown] Allergy/AdvReac Type Severity Reaction Status Date / Time Penicillins Allergy Rash Verified 04/15/23 16:49 Sulfa (Sulfonamide Allergy Rash Verified 04/15/23 16:49 Antibiotics) celecoxib [From Celebrex] AdvReac Rash Verified 04/15/23 16:49 Family History Father Cancer Mother CVA (cerebral vascular accident) Heart disease Surgical History (Updated 05/19/22 @ 11:53 by Rohini Lacy) h/o wrist surgery History of cholecystectomy History of left hip replacement Social History (Updated 02/21/22 @ 10:[address] James Hope MD) household members: none Smoking Status: Never smoker substance use type: does not use ROS ROS ED ROS Narrative REVIEW OF SYSTEMS: Unless otherwise stated in this report the patient's positiveand negative responses for review of systems for constitutional, eyes, ENT, cardiovascular, respiratory, gastrointestinal, neurological, , musculoskeletal, and integument systems and related systems to the presenting problem are either stated in the history of present illness or were not pertinent or were negative for the symptoms and/or complaints related to the presenting medical problem. EXAM Physical Exam Narrative Exam Narrative: Vital signs reviewed and patient is not hypoxic. General: The patient appears well and in no apparent distress. Patient is resting comfortably on cart. Not toxic, lethargic, or listless. Skin: Warm, dry, no pallor noted. There is no rash noted. Patient has an area to his left cheek of 6 x 4 cm of multiple superficial abrasions/road rash with minimal small black debris noted in the superficial abrasions from a grinder tender. Patient has a 8 x 2 cm area to his right upper lateral arm that has a few small foreign bodies of small black specks from a grinder tender, with the isolated 3 cm superficial laceration, 1 to 2 mm deep, 2 mm wide. No active bleeding. Patienthas no puncture through and through to his left cheek. Patient has no other facial injury Head: Normocephalic, atraumatic Eye: Normal conjunctiva, no drainage, EOMI. PERRL. Ears, Nose, Mouth, and Throat: oral mucosa is moist. Nares patent. Mouth withoutvesicles. Patient has no signs of intraoral laceration, there is no through andthrough laceration to his left cheek Cardiovascular: Regular Rate and Rhythm, no murmurs, gallops, or rubs Respiratory: Patient is in no distress, no accessory muscle use, lungs are clearto auscultation, no wheezing, rales or rhonchi Back: non-tender, GI: Soft, no tenderness Musculoskeletal: The patient has full range of motion of all extremities and joints with no difficulty. Patient has no motor, no sensory deficits. Neurological: A&O x4, normal speech, no focal neurological deficits. Psychiatric: Cooperative Const Vital Signs: 04/15/23 16:48 Temperature 97.8 F Temperature Source Temporal Pulse Rate 98 Respiratory Rate 18 Blood Pressure 187/96 H Blood Pressure Mean 126 Pulse Ox 94 Oxygen Delivery Method Room Air MDM MDM MDM Narrative Medical decision making narrative: Patient had tetanus update. The options of placing 1 or 2 stitches in patient'ssuperficial laceration to his right upper lateral arm was discussed with patientversus healing with secondary intention. Patient does not wish to have stitchesat this time, and this will most likely heal well because is very superficial tohis right upper lateral arm. Foreign bodies removed from left cheek and right upper lateral arm. All of patient's other superficial abrasions to his left cheek and right arm were cleaned with Hibiclens soapy water by nursing staff. Patient tolerated procedure without difficulty. Patient is placed on Bactroban ointment secondary to nature of the wound. Patient will follow-up with PCP if any other acute concerns. Patient was happy that he is not getting stitches nor did he want stitches. Placing 1 or 2 stitches versus not doing stitches would not probably change the healing pattern. Patient agrees, no question of discharge. Discharge Plan Triage Chief Complaint: Wound ED Provider: Nikhil Kinney Dx/Rx/DC Orders Clinical Impression: Abrasion of face, Laceration of upper arm, Abrasion of left arm Instructions: First Aid: Cuts and Scrapes, ED Abrasion, ED Laceration Minimize Scars Prescriptions: New mupirocin 2 % ointment 1 applic topical TID 14 Days Qty: 22 0RF No Action tadalafil 20 mg tablet 20 mg PO ONCE PRN (Reason: ed) diclofenac sodium 100 GM gel 4 gm TOPICAL Q6H PRN (Reason: Pain Or Fever) hydrochlorothiazide 12.5 mg tablet 12.5 mg PO DAILY Qty: 30 0RF Primary Care Provider: Myah Arteaga Referrals: Myah Arteaga MD [Primary Care Provider] - Activity Restrictions/Additional Instructions: . You can still continue to take a shower. Use Bactroban 3 times a day to helpwith wound healing and help prevent infection. Your abrasions and small laceration to your right upper arm will heal from the inside out. Small foreignbodies were removed. Any other acute concerns, follow-up with PCP in 2 or 3 days for wound check. Disposition Disposition: Home, Self Care What to do if you have Problems For any increased pain, shortness of breath, bleeding, nausea or vomiting, chestpain, or any unexpected problems, contact your Primary Care Provider. Call [facility] ([phone]) or report to the closest Emergency Room. Call 911 if necessary. 04/15/23 1729 <Electronically signed by Nikhil Kinney DO> Cosigner Signature (if applicable): CC: Dr. Myah Arteaga MD ~ Signed [facility] Work Phone: [phone]) 118-826904-24-2023 History of Present illness Narrative* Amena Jet [facility]BONING ROOM WORKER - 02/20/2023 10:43 AM EDT Episode Visit Count: Visit count could not be calculated. Make sure you are using a visit which is associated with an episode. Start of Care Date: 02/20/23 Onset Date: 10/30/22 Patient Identified by Name and Date of : Yes [facility] MODIFIED BARIUM SWALLOW PLAN OF CARE: Impression: Evidence of: Oropharyngeal dysphagia, Concern for possible esophageal impairment An elevated risk for aspiration: No Swallow Efficiency: Preserved RESULTS: - penetration on Thin liquids & puree, cleared upon completion of swallow - premature spillage to level of pyriform sinus prior to swallow initiation - partial obstruction of flow thru PE segment,residue noted - Pt indicate I need to take smaller drinks & bites and take my time eating RECOMMENDATION: Diet Recommendations: Regular Consistency, Thin Liquids IDDSI Level 0 Swallowing Precautions Recommendations: -Alternate bites and sips, - Double swallows, -Extended time between presentations, - Maintain an upright position 20-30 minutes following all oral intake, -Self-monitoring, - Sit upright 90 degrees for all PO, -Small Bite/Sip, -Reduced bite size BONING ROOM WORKER Recommendations: Diet, Swallowing Precautions - no further Speech Therapy is recommended at this time Results and Recommendations Discussed With: Patient Goals for Modified Barium Swallow: created for 02/20/2023 only. The patient will be able to demonstrate adequate return of knowledge of today's fluoroscopic assessment and recommendations to maximize overall safety with oral intake. (baseline = no knowledge). GOAL MET SUBJECTIVE: Vic Ballesteros is a 57 year old male seen today for a Modified Barium Swallow (MBS) Study. -food stuck Patient Goals: eat/drink without restrictions - weird sensation in throat region - voice always rough Esophagram 12/27/2022 - IMPRESSION: 1. Mild prominence of the cricopharyngeus impression upon the cervical esophagus. 01/18/2023 Endoscopy - approx 2 weeks ago --- Gastritis Prior Functional Level: Within Functional Limits OBJECTIVE: MEASURES WITH LEVEL OF FUNCTION: Instrumental Swallow Assessment Type: Modified Barium Swallow Study Modified Barium Swallow Views: Lateral position MBS Consistencies Tested: Thin Barium Liquids, Mildly Thick Barium Liquids ([place] Thick), Minced and Moist with Barium Paste, Pureed with Barium Paste, Soft and Bite-Sized with Barium Paste, Solid with Barium Paste Oral Phase: As Follows Lip Closure: No labial escape/anterior loss of bolus Tongue Control During Bolus Hold: Escape to lateral buccal cavity and/or floor of mouth Bolus Preparation/Mastication: Timely and efficient mastication skills Bolus Transport/Lingual Motion: Brisk tongue motion for A-P movement of the bolus Oral Residue: Residue collection on oral structure (large bolus - double swallow to clear) Initiation Of Pharyngeal Swallow: Bolus head at pit of pyriforms (large bolus) Pharyngeal Phase: As Follows Soft Palate Elevation: No bolus between soft palate/pharyngeal wall Laryngeal Elevation: Partial superior movement of thyroid cartilage and/or partial approximation ofarytenoids to epiglottic petiole Anterior Hyoid Excursion: Partial anterior movement Epiglottic Movement: Complete inversion Laryngeal Vestibular Closure/Height of the Swallow: Complete - no air/contrast in laryngeal vestibule Pharyngeal Stripping Wave: Present, however, diminished Pharyngeal Contraction (A/P View Only): Not tested Pharyngoesophageal Segment Opening: Partial distension/partial duration with partial obstruction offlow of bolus Tongue Base Retraction: Trace column of contrast or air between tongue base and pharyngeal wall Pharyngeal Residue: Collection of residue within or on the pharyngeal structures Esophageal Clearance In An Upright Position: (Esophagram 12/27/2022) Penetration: During the swallow Penetration With: Thin Liquids IDDSI Level 0, Pureed IDDSI Level 4 Penetration-Aspiration Scale for MBSS: Completed Level 1-Material does not enter airway : Regular Consistency, Soft and Bite- Sized IDDSI Level 6, Minced and Moist IDDSI Level 5, Mildly Thick Liquids IDDSI Level 2 ([place] Thick) Level 2-Material enters the airway, remains above the vocal folds,and is ejected from the airway : Thin Liquids IDDSI Level 0, Pureed IDDSI Level 4 Education: Education Learning Preferences: Demonstration, Explanation, Performance Barriers: None Learning/Educational Needs: Compensatory Strategies, Diet Modification(s), Rehabilitation Techniques and Procedures, Swallowing Skills, Precautions Education Provided: Yes, see treatment interventions for education provided Education Provided To: Patient Education Mode/Type: Demonstration, Explanation/Discussion, Performance, Teach Back, Video Response to Education/Teach Back: States/Identifies, Return Demonstration TREATMENT: Performed Modified Barium Swallowing Study (25230). Evaluation: Modified Barium Swallow Evaluation (99174) Swallow / Dysphagia (78105): Skilled Intervention: Provided education related to a typical swallowing mechanism in a compare and contrast manner compared to this patient's current skill set. , Educated and advised patient / caregiver on texture and liquid consistency recommendations., Instructed patient / caregiver on recommended compensatory strategies to maximize safety with oral intake while maintaining nutrition, hydration and medication stability. - video review & education regarding findings from today's MBSS study & suggested plans fortreatment were provided to the Patient through verbal instructions, images & demo Education regarding findings from today's Modified Barium Swallowing study (fluoroscopic study) andsuggested plans for treatment were provided to the Pt through verbal / written instruction, images and/or demonstration. Pt was able to demonstrate understanding of education provided this date. Billing: Modified Barium Swallow (68200) and Dysphagia Treatment (41575) Total time: 30 minutes LAURO GibsonBONING ROOM WORKER documented in this encounterTri[facility] History and physical note * Lynn Taylor PA-C - 01/18/2023 12:15 PM EDT UPDATED HISTORY AND PHYSICAL EXAMINATION SERVICE DATE: 01/18/2023 SERVICE TIME: 11:28 AM SERVICE: Gastroenterology PHYSICAL EXAM MUST BE COMPLETED ON ADMISSION The History and Physical (completed in the past 30 days) has been reviewed and the patient has beenexamined. The contents accurately reflect the patient's condition with the following additions or revisions since the H&P was completed. Denies chest pain, heart palpations, dizziness, fatigue, shortness of breath, cough, wheezing, headache, fever, abdominal pain, nausea, vomiting. Adequate time was taken to answer patient's questions. They have no further complaints at this time. Planned procedure(s) for today is/are: EGD DIAGNOSTIC PAST MEDICAL HISTORY Diagnosis Date ACNE NEC 10/13/2006 Anxiety 01/16/2023 ANXIETY STATE NOS 12/26/2008 Depression Dyslipidemia Essential hypertension 01/16/2023 GERD (gastroesophageal reflux disease) 01/16/2023 History of traumatic brain injury Hypertension Hypogonadism male 10/30/1988 Left knee pain Obesity AMANDA (obstructive sleep apnea) 10/30/2005 cpap PMH - PAST MEDICAL HISTORY OF L 5 nerve injury workman comp PMH - PAST MEDICAL HISTORY OF 10/30/1988 Industrial accident fall Stroke (HCC) Thrombosed external hemorrhoid 10/26/2011 Unspecified site of spinal cord injury without evidence of spinal bone injury 01/25/2013 Medication reconciliation list reviewed in EPIC. Past medical history, past surgical history, social history and family history reviewed and [facility]in [facility]. ALLERGIES Allergen Reactions Penicillin G Hives Sulfa (Sulfonamide * Hives Celebrex [Celecoxib] Rash See [facility] for vitals There were no vitals taken for this visit. There were no vitals taken for this visit. Examination indicates no changes. On examination today: Lungs: Clear to auscultation bilaterally. Heart: RRR, Normal S1/S2, No murmurs, rubs, gallops or thrills appreciated. Abdomen: BS+ in all quadrants, abdomen is soft, non tender, and without guarding. Assessment: pharyngeal dysphagia Plan: EGD DIAGNOSTIC This H&P can be found in the Electronic Medical Record dated: 01/16/2023 done by Karl Harmon APRN.LEATHER SORTER SIGNATURE: Lynn Taylor PA-C PATIENT NAME: Vic Ballesteros DATE: January 18, 2023 TIME: 11:28 AM documented in this encounterTrihealth [facility]03-20-[facility]23 Instructions* Patient Instructions* Karl Harmon APRN.LEATHER SORTER - 01/16/2023 8:59 AM EDT PATIENT PREOPERATIVE INSTRUCTIONS Rik Vilchis MD has scheduled you for your procedure at this surgery center: [facility]: [phone] -- [place] [address]. Please read below carefully for your personalized instructions. Dietary Restrictions: - No solid food after midnight. - You may have 12 ounces of clear liquids (water, clear juices such as apple juice or gatorade, carbonated beverages, clear tea, black coffee, jello) until 2 hours before scheduled arrival at facility. Medications: Unless instructed differently below, stay on all of your medications until your surgery. Approved medications to take the morning of surgery with a sip of water: omeprazole (PRILOSEC) If you take any medications for erectile dysfunction-Cialis (Tadalafil), Levitra, Staxyn (Vardenafil) Viagra (Sildenenafil please do not take these for 48 hours before surgery. If you start any new medications after today's visit, please contact the surgeon's office. Blood Thinning Medications: - Stop NSAIDS (Ibuprofen, Advil, Aleve, Motrin, Celebrex, Mobic, etc.) 7 days before surgery, as directed by your surgeon. - Stop aspirin 7 days before surgery - Stop Vitamin E, ALL multi-vitamins, herbals and dietary supplements 7 days before surgery. - You may take Tylenol (Acetaminophen) or any of your pain medications that do not contain aspirin or NSAIDS as needed. Important Reminders: - Candy, mints, and tobacco products are NOT permitted the morning of surgery. - Hearing aids, dentures and glasses may be worn the morning of surgery. - NO jewelry, body piercings, makeup, hairpins or contacts are to be worn the day of surgery. If you develop symptoms such as a fever, cold, or flu, or have other changes to your health within TWO DAYS of scheduled surgery or the morning of surgery, please contact the surgery center above. Personal Belongings: -Please have photo ID and insurance cards. -If you do not have a copy of advance directives on file with us, please bring a copy with you on the day of surgery. - Leave ALL valuables and money at home or with family members. For Outpatient Procedures: - YOU MUST HAVE A RESPONSIBLE MACHINE BOOKKEEPER TAKE YOU HOME. A MOVIE EDITOR OR DISPATCHER ELECTRIC POWER CANNOT BE MADE A RESPONSIBLE MACHINE BOOKKEEPER. - We recommend that a responsible person stays with you overnight to take care of you. - You cannot stay in a hotel alone after outpatient surgery. You will not be permitted to have yoursurgery, if you do not have someone to take care of you. Arrival Time for Surgery: - The Surgery Center or hospital where you are having surgery will call the afternoon before surgery (or Monday for Monday surgery) with a scheduled arrival time. - If you have not heard by 4 pm, please contact the surgery center above. Please be aware that emergency situations arise, which may delay or change your surgical time. If this happens, we will notify you as soon as possible and regret any inconvenience. If you already have an Advance Directive, please fax a copy to [phone] or email to for it to be added to your chart. If you do not have an Advance Directive, you can find the appropriate form and more information at [email or web address]. We recommend that youcomplete the Advance Directive form found on the website and bring it with you the day of your surgery. It can be witnessed and scanned into your chart that day. Karl Harmon APRN.CNP documented in this encounterTrihealth [facility]03-20-2023 History and physical note * Karl Harmon APRN.CNP - 01/16/2023 8:30 AM EDT PREANESTHESIA CONSULT CLINIC TELEHEALTH VISIT Patient has been identified by name and date of : Yes This is a virtual visit using [employer] video visit. It require patient-provider interaction for the medical decision making as documented below. I have communicated my name and active licensure. The patient's identity and physical location were verified at the time of this visit. The patient has been informed of the risk and benefits of and alternatives to treatment through a remote evaluation andconsents to proceed with the evaluation remotely. Reason for contact: PACC visit Accompanied by: Self Scheduled Surgery: EGD on 01/18/[address] Mame Greer Subjective CHIEF COMPLAINT: Patient presents with: Pre-Op Visit HPI: 57 year old male who has Pharyngeal dysphagia that has been present since the last year seen for PACC. He states having coughing spells after eating certain foods. Denies any hemoptysis. Denies any fever, chills, nausea, vomiting, SOB, dizziness, lightheadedness, palpitations, syncope, chest pain or abdominal pain. He has elected to proceed with the surgical procedure. 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 Tbi (Traumatic Brain Injury) (Hcc) Primary Osteoarthritis of Left Hip History of Palpitations Red Blood Cell Antibody Positive Hepatitis C Antibody Positive in Blood Sensorineural Hearing Loss (Snhl) of Both Ears Subjective Tinnitus of Both Ears Essential Hypertension Gerd (Gastroesophageal Reflux Disease) Depression Anxiety PAST MEDICAL HISTORY Diagnosis Date ACNE NEC 10/13/2006 Anxiety 01/16/2023 ANXIETY STATE NOS 12/26/2008 Depression Dyslipidemia Essential hypertension 01/16/2023 GERD (gastroesophageal reflux disease) 01/16/2023 History of traumatic brain injury Hypertension Hypogonadism male 10/30/1988 Left knee pain Obesity AMANDA (obstructive sleep apnea) 10/30/2005 cpap PMH - PAST MEDICAL HISTORY OF L 5 nerve injury workman comp PMH - PAST MEDICAL HISTORY OF 10/30/1988 Industrial accident fall Stroke (HCC) Thrombosed external hemorrhoid 10/26/2011 Unspecified site of spinal cord injury without evidence of spinal bone injury 01/25/2013 PAST SURGICAL HISTORY Procedure Laterality Date ABDOMINAL SURGERY HX COLONOSCOPY FLX DX W/COLLJ SPEC WHEN PFRMD 04/17/2012 repeat 10 years COLONOSCOPY SCREENING 06/09/2022 10 year f/u colonoscopy FRACTURE SURGERY HERNIA REPAIR HX JOINT REPLACEMENT HX LAPAROSCOPY SURG CHOLECYSTECTOMY 08/01/2017 Cholecystectomy, lap PAST SURGICAL HISTORY OF Right 1988 wrist fracture after work accident, states still has hardware PAST SURGICAL HISTORY OF 1988 exploratory after accident, opened from pubic bone to breastbone REPAIR NASAL SEPTUM DEFECT RPR 1ST INCAL/VNT HERNIA INCARCERATED 10/28/2019 TOTAL HIP REPLACEMENT Left 2021 VASECTOMY UNI/BI SPX W/POSTOP SEMEN EXAMS Bilateral 1999 FAMILY HISTORY Problem Relation Age of Onset Heart Mother Hypertension Mother Cancer Father lung None Brother None Brother other (lymphoma) Sister other (car accident) Sister Social History Tobacco Use Smoking status: Never Smokeless tobacco: Never Vaping Use Vaping Use: Never used Substance Use Topics Alcohol use: Yes Alcohol/week: 1.0 standard drink Types: 1 Cans of Beer (12oz) per week Drug use: No ALLERGIES Allergen Reactions Penicillin G Hives Sulfa (Sulfonamide * Hives Celebrex [Celecoxib] Rash MEDICATIONS: Current Outpatient Medications Medication Sig hydroCHLOROthiazide (HYDRODIURIL, ESIDRIX) 25 mg tablet Take 1 tablet by mouth once daily. amitriptyline (ELAVIL) 100 mg tablet Take 100 mg by mouth daily at bedtime. omeprazole (PRILOSEC) 20 mg capsule Take 1 capsule by mouth daily before breakfast. 1/2 hr before meal. cabergoline (DOSTINEX) 0.5 mg tablet Take 0.5 tablets by mouth one time a week. clonazePAM (KLONOPIN) 1 mg tablet TAKE 1/2 TABLET THREE TIMES A DAY NEEDED acetaminophen (TYLENOL EXTRA STRENGTH) 500 mg tablet Take 2 tablets by mouth every 8 hours as needed for pain. Tadalafil (CIALIS) 20 mg tab(s) TAKE 1 TABLET BY MOUTH 1-2 HOURS BEFORE SEXUAL INTRACOURSE NEEDED lidocaine 4 % gel Apply 1 Tube to affected area once daily. COMPOUNDED PRESCRIPTION Autopap @ 4-20 cm of water with humidification mask (per patient preference) optional chin strap (if indicated) and lifetime supplies DX: AMANDA 327.23 No current facility-administered medications for this visit. COVID VACCINATION STATUS: Fully vaccinated REVIEW OF SYSTEMS: Pain Assessment: General: No weight loss, malaise or fevers. Neuro: Postive for Stroke noted in history, but patient denies + TBI , Negative for TIA's HeadachesSeizures Stroke-residual deficit Stroke-No residual deficit Parkinson's Disease Multiple Sclerosis Hemiplegia/Hemiparesis Paraplegia/Paraparesis Respiratory: No history of current cough or dyspnea, or pneumonia in the past 6 weeks. No history of respiratory/pulmonary symptoms or problems. Cardiovascular: Positive for: HLD, Hypertension, Negative for Recent DC, Angina, Arrhythmia, CAD, Chest Pain, CHF, Valvular Heart Disease, DVT/PE GI: Positive for GERD, SEE HPI, Negative for Nausea, Vomiting, Abdominal pain, Hepatitis, Liver disease, IBS, Colon cancer, Rectal cancer, Diverticulitis : No history of dysuria, frequency or incontinence,, stones or chronic kidney disease Endocrine: No history of diabetes. Has not taken steroids within the past 30 days. No history of endocrinological symptoms or problems. Hematology: + Red blood cell antibody positive + Hepatitis C antibody positive in blood No history of bleeding or clotting disorder. Pt is not taking anti-coagulation or platelet medications. No history of hematological symptoms or problems. Oncology: No history of CA metastasis, chemo within 30 days, or radiotherapy within 90 days. Has not lost 10% of body wt in 6 months. No history of oncological symptoms or problems. Psych: Anxiety, Depression Musculoskeletal: Negative for joint pain or swelling, back pain or muscle pain. Skin: Negative for lesions, rash and itching. Objective PHYSICAL EXAM: Ht 5' 5 (1.65m) Wt 275 lb (124.7kg) BMI 45.76 kg/(m^2). VIDEO EXAM: (if completed, performed via video enabled technology) GENERAL: alert and appropriate, in no distress, well-hydrated, well nourished, and happy, smiling, interactive SKIN: no rash noted HEAD: normocephalic, no abnormality or lesion noted EYES: no injection and visual acuity is grossly normal OROPHARYNX: moist mucus membranes NECK: full ROM, no cervical LNs noted RESPIRATORY: breathing non-labored CHEST: equal chest rise with normal respiratory effort HEART: Patient palpated radial pulse, regular when counted aloud by patient NEUROLOGIC: no obvious deficit Diagnostic tests reviewed for today's visit: Lab Value Units Date High Low HB No results within date range. HCT No results within date range. WBC No results within date range. PLT No results within date range. NA No results within date range. K No results within date range. GLUC No results within date range. BUN No results within date range. CREAT No results within date range. PTSEC No results within date range. INR No results within date range. APTT No results within date range. ALT No results within date range. AST No results within date range. TBILI No results within date range. TSH No results within date range. Lab Value Units Date High Low HCGQT No results within date range. UHCG No results within date range. HCG, BODY* No results within date range. Lab Value Units Date High Low ABORHD No results within date range. ABSCREEN No results within date range. No results found for: HBA1C Most recent labs Impression/Recommendations ASSESSMENT: Essential hypertension Managed with hydroCHLOROthiazide Patient denies SOB, dizziness, lightheadedness, palpitations, syncope and chest pain Mixed hyperlipidemia Managed with diet Hepatitis C antibody positive in blood GERD (gastroesophageal reflux disease) Managed with omeprazole (PRILOSEC) Patient states stable Depression Managed with amitriptyline (ELAVIL) Anxiety Managed with clonazePAM (KLONOPIN) AMANDA (obstructive sleep apnea) Patient reports CPAP compliance TBI (traumatic brain injury) (HCC) History 1988 with fall from 3 stories Morbid obesity (HCC) Body mass index is 45.76 kg/m . METS: Walk indoors, such as around the house (1.75 METs) Do light work around the house, such as dusting or washing dishes (2.70 METs) Take care of self; that is eating, dressing, bathing, using the toilet (2.75 METs) Climb a flight of stairs or walk up a hill (5.50 METs) Patient denies any chest pain or undue shortness of breath with the above physical activity. ASA Class: 3 ANESTHESIA FINDINGS: Intubation History: No history of difficult intubation Significant Anesthesia Considerations: None Airway Exam: General: Morbid obesity Mallampati Score is CLASS III ULBT: Class I - Lower incisors can bite the upper lip above the nely line Neck: Normal appearance and function, Distance from hyoid to mentum during neck extension is at least 3 finger breaths. Short neck Mouth: Normal tongue size and Mouth opening greater than 2 finger breaths Dentition: Intact Airway History: No abnormal airway history STOP BANG Score: AMANDA uses CPAP/BiPAP. Informed patient to bring his CPAP on the day of surgery PLAN: Pt optimally prepared for surgery, pending day of surgery exam CONSULTS: Patient does not require consults for optimization at this time. The Following Tests/Procedures Have Been Initiated: Labs not indicated per [facility] protocol, EKG not indicated per [facility] protocol Planned Anesthetic: Per anesthesia choice Instructions Given to Patient: Patient given verbal instructions and voices comprehension and compliance. Copy sent electronically via My Chart, email, or mobile device. I spent more than 21-40 minutes [id number] with the patient and over half the time was devoted tocounseling and/or coordination of care. This is a virtual visit. It required patient-provider interaction for the medical decision making as documented above. SIGNATURE: Karl Harmon APRN.CNP PATIENT NAME: Vic Ballesteros DATE: January 16, 2023 TIME: 9:00 AM PAGER/CONTACT #: documented in this encounterTri[facility] History of Present illness Narrative* Cynthia Varner MD - 01/10/2023 9:13 AM EDT This consult is seen at the kind request of Dr. Myah Arteaga of family medicine, and my final recommendations will be communicated to the requesting health care provider by way of shared electronic medical record. This note is formatted with the impression and plan first and the history and physical to follow. IMPRESSION 57-year-old male with dysphagia and mild bilateral hearing loss. RECOMMENDATION/PLAN Since his hearing loss is very mild, I do not recommend any intervention at this time. If his hearing gets worse, we can repeat another audiogram. For his dysphagia, I recommend obtaining a modified barium swallow. I also recommended follow-up with GI for his EGD. I will send him a [employer] message once I get the result of his MBS. Chief Complaint Hearing loss, trouble swallowing. History of Present Illness Vic Ballesteros is a 57 year old male presents for evaluation of hearing loss and trouble swallowing. Both symptom has been present for over a year. Patient feels that he has some decreased hearingover the last year. He denies any ear pain or drainage. He has baseline bilateral tinnitus. Patienthad an audiogram on December 13, 2022 which showed mild sensorineural loss at 250 to 500 Hz on the right side and mild hearing loss at 3000 to 4000 Hz on the left. His word recognition score was 100%bilaterally. He is tympanometry was normal. He is also complaining of intermittent trouble swallowing liquid. He occasionally chokes on the liquid causing cough. This occurs once every few meals. He feels that he has been very cautious when he eat and drink. He did have an esophagram recently whichshowed mild cricopharyngeus compression. He is supposed to see a GI doctor for an EGD. He has history of heartburn and takes PPI. He denies any sore throat or pain with swallowing. He has no trouble with breathing. PAST MEDICAL HISTORY Diagnosis Date ACNE NEC 10/13/2006 ANXIETY STATE NOS 12/26/2008 Depression Dyslipidemia History of traumatic brain injury Hypertension Hypogonadism male 10/30/1988 Left knee pain Obesity AMANDA (obstructive sleep apnea) 10/30/2005 cpap PMH - PAST MEDICAL HISTORY OF L 5 nerve injury workman comp PMH - PAST MEDICAL HISTORY OF 10/30/1988 Industrial accident fall Stroke (HCC) Thrombosed external hemorrhoid 10/26/2011 Unspecified site of spinal cord injury without evidence of spinal bone injury 01/25/2013 PAST SURGICAL HISTORY Procedure Laterality Date ABDOMINAL SURGERY HX COLONOSCOPY FLX DX W/COLLJ SPEC WHEN PFRMD 04/17/2012 repeat 10 years COLONOSCOPY SCREENING 06/09/2022 10 year f/u colonoscopy FRACTURE SURGERY HERNIA REPAIR HX JOINT REPLACEMENT HX LAPAROSCOPY SURG CHOLECYSTECTOMY 08/01/2017 Cholecystectomy, lap PAST SURGICAL HISTORY OF Right 1988 wrist fracture after work accident, states still has hardware PAST SURGICAL HISTORY OF 1988 exploratory after accident, opened from pubic bone to breastbone REPAIR NASAL SEPTUM DEFECT RPR 1ST INCAL/VNT HERNIA INCARCERATED 10/28/2019 TOTAL HIP REPLACEMENT Left 2021 VASECTOMY UNI/BI SPX W/POSTOP SEMEN EXAMS Bilateral 1999 FAMILY HISTORY Problem Relation Age of Onset Heart Mother Hypertension Mother Cancer Father lung None Brother None Brother other (lymphoma) Sister other (car accident) Sister CURRENT OUTPATIENT MEDICATIONS Current Outpatient Medications on File Prior to Visit Medication Sig hydroCHLOROthiazide (HYDRODIURIL, ESIDRIX) 25 mg tablet Take 1 tablet by mouth once daily. amitriptyline (ELAVIL) 100 mg tablet Take 100 mg by mouth daily at bedtime. omeprazole (PRILOSEC) 20 mg capsule Take 1 capsule by mouth daily before breakfast. 1/2 hr before meal. cabergoline (DOSTINEX) 0.5 mg tablet Take 0.5 tablets by mouth one time a week. clonazePAM (KLONOPIN) 1 mg tablet TAKE 1/2 TABLET THREE TIMES A DAY NEEDED acetaminophen (TYLENOL EXTRA STRENGTH) 500 mg tablet Take 2 tablets by mouth every 8 hours as needed for pain. Tadalafil (CIALIS) 20 mg tab(s) TAKE 1 TABLET BY MOUTH 1-2 HOURS BEFORE SEXUAL INTRACOURSE NEEDED lidocaine 4 % gel Apply 1 Tube to affected area once daily. COMPOUNDED PRESCRIPTION Autopap @ 4-20 cm of water with humidification mask (per patient preference) optional chin strap (if indicated) and lifetime supplies DX: AMANDA 327.23 No current facility-administered medications on file prior to visit. ALLERGIES ALLERGIES Allergen Reactions Penicillin G Hives Sulfa (Sulfonamide * Hives Celebrex [Celecoxib] Rash The remainder of the patient's history and review of systems is on the outpatient questionaire which was reviewed by me and placed in the outpatient chart. PHYSICAL EXAMINATION Appearance: General examination of the patient's external face, head and neck reveals no abnormalities. The patient is not retrognathic The patient's voice is strong and clear and they communicate easily. Ears: Exam of the ears revealed normal appearing external auditory canals, tympanic membranes, and middle ears. No signs of infection or fluid were seen. Nose: External nasal exam was normal. Throat: There were no lesions to visualization or palpation of the lips, cheeks, gums, floor of mouth, tongue, hard and soft palate, tonsillar pillars or posterior pharyngeal wall. The patient is a Anderson Tongue Position 4 and has grade 1 tonsils. Neck: Palpation of the neck revealed no adenopathy, salivary gland masses or asymmetry, or thyroid masses or enlargement. Procedure Flexible laryngoscopy was performed because of the following indication: hyperactive gag and dysphagia: After spraying the nose with 4% xylocaine and 0.5% oxymetazoline, the flexible scope was placedin a transnasal fashion. The nasopharynx, oropharynx, hypopharynx including the pyriform sinuses were normal. The base of tongue showed no gross lesions. The larynx itself showed no lesions. The vocal cords moved well bilaterally. The oral cavity and oropharynx appears to be quite dry. Cynthia Varner MD documented in this encounterTri[facility]02-17-[facility]23 History of Present illness Narrative* Annie Ortiz PA-C - 12/16/2022 9:27 AM EST NEW VIRTUAL VISIT I had a virtual visit with Mr. Ballesteros today for dysphagia. PMHx positive for AMANDA, TBI, anxiety, depression, HTN, stroke, spinal cord injury. HISTORY: State she has noted some pharyngeal congestion, dysphagia with solids food particles for the past 6 mos. Some intermittent choking, no regurgitation. Has been on Prilosec 20 mg daily for the past3-4 mos per PCP with good improvement in GERD sx. Notes some increased belching. Admits to previousregular NSAID usage 6 mos ago due to hip replacement, now takes more PRN rarely. Bms are 1-2 per day, regular consistency, no blood/black coloring. Denies N/V, unintentional weight loss. Colon 05/2022 int hemorrhoids, no specimens PAST MEDICAL HISTORY Diagnosis Date ACNE NEC 10/13/2006 ANXIETY STATE NOS 12/26/2008 Depression Dyslipidemia History of traumatic brain injury Hypertension Hypogonadism male 10/30/1988 Left knee pain Obesity AMANDA (obstructive sleep apnea) 10/30/2005 cpap PMH - PAST MEDICAL HISTORY OF L 5 nerve injury workman comp PMH - PAST MEDICAL HISTORY OF 10/30/1988 Industrial accident fall Stroke (HCC) Thrombosed external hemorrhoid 10/26/2011 Unspecified site of spinal cord injury without evidence of spinal bone injury 01/25/2013 PAST SURGICAL HISTORY Procedure Laterality Date ABDOMINAL SURGERY HX COLONOSCOPY FLX DX W/COLLJ SPEC WHEN PFRMD 04/17/2012 repeat 10 years COLONOSCOPY SCREENING 06/09/2022 10 year f/u colonoscopy FRACTURE SURGERY HERNIA REPAIR HX JOINT REPLACEMENT HX LAPAROSCOPY SURG CHOLECYSTECTOMY 08/01/2017 Cholecystectomy, lap PAST SURGICAL HISTORY OF Right 1988 wrist fracture after work accident, states still has hardware PAST SURGICAL HISTORY OF 1988 exploratory after accident, opened from pubic bone to breastbone REPAIR NASAL SEPTUM DEFECT RPR 1ST INCAL/VNT HERNIA INCARCERATED 10/28/2019 TOTAL HIP REPLACEMENT Left 2021 VASECTOMY UNI/BI SPX W/POSTOP SEMEN EXAMS Bilateral 1999 FAMILY HISTORY Problem Relation Age of Onset Heart Mother Hypertension Mother Cancer Father lung None Brother None Brother other (lymphoma) Sister other (car accident) Sister Social History Tobacco Use Smoking status: Never Smokeless tobacco: Never Vaping Use Vaping Use: Never used Substance Use Topics Alcohol use: Yes Alcohol/week: 1.0 standard drink Types: 1 Cans of Beer (12oz) per week Drug use: No Current Outpatient Medications Medication Sig Dispense Refill hydroCHLOROthiazide (HYDRODIURIL, ESIDRIX) 25 mg tablet Take 1 tablet by mouth once daily. 90 tablet 3 amitriptyline (ELAVIL) 100 mg tablet Take 100 mg by mouth daily at bedtime. omeprazole (PRILOSEC) 20 mg capsule Take 1 capsule by mouth daily before breakfast. 1/2 hr before meal. 30 capsule 5 cabergoline (DOSTINEX) 0.5 mg tablet Take 0.5 tablets by mouth one time a week. 6 tablet 1 clonazePAM (KLONOPIN) 1 mg tablet TAKE 1/2 TABLET THREE TIMES A DAY NEEDED 45 tablet 0 DULoxetine (CYMBALTA) 60 mg capsule Take 1 capsule by mouth twice daily. 60 capsule 5 acetaminophen (TYLENOL EXTRA STRENGTH) 500 mg tablet Take 2 tablets by mouth every 8 hours as needed for pain. 45 tablet 0 Tadalafil (CIALIS) 20 mg tab(s) TAKE 1 TABLET BY MOUTH 1-2 HOURS BEFORE SEXUAL INTRACOURSE NEEDED 6 tablet 17 lidocaine 4 % gel Apply 1 Tube to affected area once daily. COMPOUNDED PRESCRIPTION Autopap @ 4-20 cm of water with humidification mask (per patient preference) optional chin strap (if indicated) and lifetime supplies DX: AMANDA 327.23 1 Device 0 No current facility-administered medications for this visit. ALLERGIES Allergen Reactions Penicillin G Hives Sulfa (Sulfonamide * Hives Celebrex [Celecoxib] Rash REVIEW OF SYSTEMS: PAIN ASSESSMENT: Negative for pain, history of chronic pain, or current treatment for a chronic pain condition. GENERAL: No weight loss, malaise or fevers RESPIRATORY: Negative for cough, hemoptysis, wheezing, COPD, dyspnea or shortness of breath CARDIOVASCULAR: Negative for chest pain, leg swelling, hypertension, CHF or palpitations GI: See HPI : No history of dysuria, frequency or incontinence MUSCULOSKELETAL: Negative for joint pain or swelling, back pain or muscle pain SKIN: Negative for lesions, rash, and itching ENDOCRINE: Negative for cold or heat intolerance, polyuria, polydipsia and goiter NEURO: No history of headaches, syncope, paralysis, seizures or tremors PHYSICAL FINDINGS OF NOTE: General - Obese appearing, cooperative, in no acute distress Able to interact verbally by video conference Psych - ORIENTATION: normal to time place, person and situation Mood/Affect: AFFECT AND MOOD: Normal Head/Neuro - Normal size and shape Facial appearance normal Pulmonary - respiratory effort normal Cardiovascular - patient describes extremities normal, warm, no cyanosis,no clubbing, and no edema Abdominal - Not performed Skin - abnormal lesions not visualized Motor - patient seen sitting with Normal appearing strength and coordination Anorectal exam - Not Performed Assessment/Plan (R13.13) Pharyngeal dysphagia (primary encounter diagnosis) 1. Pharyngeal dysphagia - XR ESOPHAGRAM; Future - Continue Prilosec 20 mg daily - Obtain esophagram - Consider EGD pending results of esophagram - Discussed swallowing/GERD precautions - Discussed weight loss in detail. 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 Includes he is interested in pursuing non-surgical options first. Pt will contact insurance company and [employer] message me if he is interested in referral. Chew all foods thoroughly and avoid tough meats, nuts, seeds, raw fruits and vegetables and dried fruit. Please go to ER if food is getting stuck and not completely passing through esophagus or trouble breathing occurs. Some soft diet food alternatives are included below: Hot cereal, [id number] cereal soaked in milk, canned fruit, soft cooked vegetables, juice, scrambled eggs, ground meat, cooked beans, cooked peas, cottage cheese, yogurt without fruit, custards, puddings, cream soups, noodles Calorie/nutrient rich drinks such as Boost/Ensure as appropriate for weight control Drink water with meals and take sips periodically to keep hydrated and help food pass down esophagus Gargle with warm salt water to help reduce any swelling or irritation that may be causing the difficulty in swallowing Oral lozenges can help eliminate dryness because this increases saliva production I spent a total of 20 minutes on the date of the service which included preparing to see the patient, [id number] patient care, completing clinical documentation, obtaining and/or reviewing separately obtained history, performing a medically appropriate examination, counseling and educating the pat ient/family/caregiver, ordering medications, tests, or procedures, communicating with other HCPs (not separately reported), independently interpreting results (not separately reported), communicatingresults to the patient/family/caregiver, and care coordination (not separately reported). Annie Ortiz PA-C December 16, 2022 9:37 AM documented in this encounterTri[facility]02-14-[facility] History of Present illness Narrative* EPI Martines - 12/13/2022 9:30 AM EST Head and Neck [place] AUDIOLOGIC EVALUATION REPORT Name: Vic Ballesteros [facility]#: [id number] Date of Service: 12/13/2022 Date of : 1965 Age: [age] year old Referred by: Myah Arteaga MD. Referred for: Evaluation of suspected change in hearing, tinnitus, or balance. Referral documented: No referral on file. Patient referred to ENT Patient's major complaints: Reduced hearing right ear greater than left ear, Tinnitus in both ears,Pressure/fullness right ear greater than left ear Vic Ballesteros was seen for an initial audiologic evaluation. See [facility] Audiogram for additional reported history and symptoms. Vic reported that he has a history of many ear infections with a previous right TM perforation.On 10/27/2022 patient reported a plugged feeling in right ear with reduced hearing. He was found to have otitis media in the right ear by his PCP. Following this he has indicated a reduction in hearing, potentially in both ears. He stated he feels when he is watching TV he hears sounds in the other room and has to turn down the TV. He has constant high pitched tinnitus bilaterally. Vic described having recent pressure or fullness in ears/ sinuses. He occasionally has imbalance/ unsteadiness when bending over or moving quickly. He stated that his blood pressure has been high as well. He reported a previous Head injury in 1988 from an incident at work leading to a hospitalization. Therehas been intermittent noise exposure to power tools with inconsistent use of HPDs. His father had hearing loss in old age. No current pain or drainage, ear surgery, Today, he denied otalgia, otorrhea, dizziness, prior otologic surgery, and history of chemotherapy/radiation. IMPRESSIONS RIGHT EAR: Sensorineural hearing loss LEFT EAR: Sensorineural hearing loss AUDIOLOGIC EVALUATION Following is a brief interpretation of the obtained findings from the audiologic evaluation. Refer to the Auditory Test Record for complete audiometric results. The patient was counseled about the test findings and appropriate audiologic recommendations were made. SUMMARY: Audiogram can be viewed under Forms/Audiology/SmartForm. OTOSCOPY RIGHT EAR: Otoscopic inspection revealed ear canal was clear with an identifiable cone of light. LEFT EAR: Otoscopic inspection revealed ear canal was clear with an identifiable cone of light. TYMPANOMETRY Description of procedure: This test is an objective evaluation of middle ear function. CPT code: 94125 RIGHT EAR: Normal ME function, double peak observed. LEFT EAR: Normal ME function, double peak observed. ACOUSTIC REFLEXES Description of procedure: This test is an objective measure of auditory and facial nerve pathways. CPT code: 10599, 24065 RIGHT EAR PROBE EAR: (ipsi right stimulus ear; contralateral left stimulus ear): Acoustic Reflex Pattern Did not test Acoustic Reflex Decay (left stimulus ear): Did not test. LEFT EAR PROBE EAR: (ipsi left stimulus ear; contralateral right stimulus ear): Acoustic Reflex Pattern Did not test Acoustic Reflex Decay (right stimulus ear):Did not test. PURE TONE AUDIOMETRY AND SPEECH TESTING Description of procedure: This test is an objective evaluation hearing sensitivity via air and boneconduction and speech recognition testing. CPT code:87381 RIGHT EAR: Hearing Sensitivity: Mild sensorineural hearing loss through 500 Hz rising to hearing within normallimits. Word Recognition Score: Excellent (100%). WRS is consistent with hearing sensitivity. Words were presented at 60 dB HL which is above (greater than or equal to 60 dB HL) intensity level for average conversational speech. The NU-6 Ordered by Difficulty Word List (10 words) was used for testing. LEFT EAR: Hearing Sensitivity: Hearing within normal limits with a mild sensorineural hearing loss notch 4000-8359 Hz. Word Recognition Score: Excellent (100%). WRS is consistent with hearing sensitivity. Words were presented at 55 dB HL which approximates (45-55 dB HL) intensity level for average conversational speech. The NU-6 Ordered by Difficulty Word List (10 words) was used for testing. RECOMMENDATIONS * Continue medical follow-up with Myah Arteaga MD * Consider otologic referral for further evaluation of low frequency asymmetrical hearing loss, earand sinus pressure as well as throat concerns * Re-evaluation as medically indicated. * Patient should maintain a sound enriched environment to assist in managing the tinnitus. MARIYA Kendall Doctoral Student Testing was obtained under the direct supervision of Epi Martines, JESSICA/A Epi Martines CCC-A Clinical and Hearing Implant Solar Panel Installer copied to: Myah Arteaga MD FLORES Abbrev- iation Definition Degree of hearing sensitivity dB range WNL within normal limits WNL 0 - 20 SNHL sensorineural hearing loss Mild 20-40 CHL conductive hearing loss Moderate 40-55 MHL mixed hearing loss Moderately-Severe 55-70 WRS word recognition score Severe 70-90 ME middle ear Profound 90 + TM tympanic membrane documented in this encounterTri[facility]02-13-2023 Miscellaneous Notes* Telephone Encounter - Jeanette Neely DREDGE CAPTAIN - 12/12/2022 2:44 PM EST Patient has been identified by name and date of : Pharmacy phones for refill(s): Requested Prescriptions Pending Prescriptions Disp Refills hydroCHLOROthiazide (HYDRODIURIL, ESIDRIX) 25 mg tablet 90 tablet 3 Sig: Take 1 tablet by mouth once daily. Date of last office visit in primary care: 12/09/2022 , has appt 06/08/2023 Last 2 Encounter Wt Readings: Date: Wt: 12/09/2022 126.6 kg (279 lb) 10/27/2022 124.7 kg (275 lb) Previous labs/tests for medication: Blood Pressure: BUN (mg/dL) Date Value 03/23/2022 16 12/05/2021 15 Sodium (mmol/L) Date Value 03/23/2022 138 12/05/2021 140 Last 1 Encounter BP Readings: Date: BP: 12/09/2022 132/78 Please advise. Thank you. Jeanette Neely LPN documented in this encounterTri[facility]29[facility] History of Present illness Narrative* Myah Arteaga MD - 10/27/2022 1:47 PM EST Patient presents with: 6 Month Exam HPI: Patient presents today for office visit for follow up. Feels like he has a restricted airway at time. Says is in his throat. Coughs periodically when eating. Has heartburn frequently. Has not been taking his omeprazole. No black or bloody stools. No choking. Food can stick Some cough He has some issues with his right ear. Has decreased hearing. Feels like it is plugged. Has chronic postnasal drip Has been seeing endo AMANDA: still using his cpap. Benefiting from its use. Hypertension:bp up on arrival No chest pain or shortness of breath. No edema. PSYCH:emotionally has been stable. Seeing psych. MEDICATIONS: Current Outpatient Medications Medication Sig amitriptyline (ELAVIL) 100 mg tablet Take 100 mg by mouth daily at bedtime. cabergoline (DOSTINEX) 0.5 mg tablet Take 0.5 tablets by mouth one time a week. DULoxetine (CYMBALTA) 60 mg capsule Take 1 capsule by mouth twice daily. hydroCHLOROthiazide (HYDRODIURIL, ESIDRIX) 25 mg tablet Take 1 tablet by mouth once daily. methylPREDNISolone (MEDROL, ROCIO,) 4 mg Dose-Pack As Instructed per package clonazePAM (KLONOPIN) 1 mg tablet TAKE 1/2 TABLET THREE TIMES A DAY NEEDED buPROPion SR (ZYBAN SR; WELLBUTRIN SR) 150 mg 12 hr tablet Take 1 tablet by mouth twice daily. omeprazole (PRILOSEC) 20 mg capsule Take 1 capsule by mouth daily before breakfast. 1/2 hr before meal. aspirin, enteric coated (ECOTRIN LOW STRENGTH) 81 mg EC tablet Take 1 tablet by mouth twice daily. acetaminophen (TYLENOL EXTRA STRENGTH) 500 mg tablet Take 2 tablets by mouth every 8 hours as needed for pain. Tadalafil (CIALIS) 20 mg tab(s) TAKE 1 TABLET BY MOUTH 1-2 HOURS BEFORE SEXUAL INTRACOURSE NEEDED lidocaine 4 % gel Apply 1 Tube to affected area once daily. COMPOUNDED PRESCRIPTION Autopap @ 4-20 cm of water with humidification mask (per patient preference) optional chin strap (if indicated) and lifetime supplies DX: AMANDA 327.23 No current facility-administered medications for this visit. ALLERGIES: ALLERGIES Allergen Reactions Penicillin G Hives Sulfa (Sulfonamide * Hives Celebrex [Celecoxib] Rash PAST MEDICAL HISTORY Diagnosis Date ACNE NEC 10/13/2006 ANXIETY STATE NOS 12/26/2008 Depression Dyslipidemia History of traumatic brain injury Hypertension Hypogonadism male 10/30/1988 Left knee pain Obesity AMANDA (obstructive sleep apnea) 10/30/2005 cpap PMH - PAST MEDICAL HISTORY OF L 5 nerve injury workman comp PMH - PAST MEDICAL HISTORY OF 10/30/1988 Industrial accident fall Stroke (HCC) Thrombosed external hemorrhoid 10/26/2011 Unspecified site of spinal cord injury without evidence of spinal bone injury 01/25/2013 PAST SURGICAL HISTORY Procedure Laterality Date ABDOMINAL SURGERY HX COLONOSCOPY FLX DX W/COLLJ SPEC WHEN PFRMD 04/17/2012 repeat 10 years COLONOSCOPY SCREENING 06/09/2022 10 year f/u colonoscopy FRACTURE SURGERY HERNIA REPAIR HX JOINT REPLACEMENT HX LAPAROSCOPY SURG CHOLECYSTECTOMY 08/01/2017 Cholecystectomy, lap PAST SURGICAL HISTORY OF Right 1988 wrist fracture after work accident, states still has hardware PAST SURGICAL HISTORY OF 1988 exploratory after accident, opened from pubic bone to breastbone REPAIR NASAL SEPTUM DEFECT RPR 1ST INCAL/VNT HERNIA INCARCERATED 10/28/2019 TOTAL HIP REPLACEMENT Left 2021 VASECTOMY UNI/BI SPX W/POSTOP SEMEN EXAMS Bilateral 1999 FAMILY HISTORY Problem Relation Age of Onset Heart Mother Hypertension Mother Cancer Father lung None Brother None Brother other (lymphoma) Sister other (car accident) Sister Social History Tobacco Use Smoking status: Never Smokeless tobacco: Never Vaping Use Vaping Use: Never used Substance Use Topics Alcohol use: Yes Alcohol/week: 1.0 standard drink Types: 1 Cans of Beer (12oz) per week Drug use: No Reviewed current medications, allergies, past medical history, surgical history, family history andsocial history today. REVIEW OF SYSTEMS All other reviewed and negative other than HPI. HEALTH MAINTENANCE: Reviewed health maintenance issues today and recommended the following in detail. HEPATITIS B(1 of 3 - 3-dose series) Never done BP CONTROLLED (<130/80) Never done SHINGRIX VACCINE(1 of 2) Never done COVID-19 VACCINE(3 - Booster for Pfizer series) due on 08/06/2021 DEPRESSION ASSESSMENT Never done INFLUENZA(1) due on 06/30/2022 VITALS: BP 138/86 Pulse 70 Wt 124.7 kg (275 lb) SpO2 97% BMI 45.76 kg/m Last 4 Encounter Wt Readings: Date: Wt: 10/27/2022 124.7 kg (275 lb) 08/04/2022 118.8 kg (262 lb) 08/02/2022 119.1 kg (262 lb 9.6 oz) 05/06/2022 118.6 kg (261 lb 6.4 oz) PHYSICAL EXAMINATION: General appearance: Well appearing, alert, in no acute distress, well-hydrated, well nourished. Skin: Skin color, texture, turgor normal, no suspicious rashes or lesions Head: Normocephalic, no masses, lesions, tenderness or abnormalities Eyes: Anicteric sclera. Pupils are equally round and reactive to light. Extraocular movements are intact. Ears: has tm retraction on his right. Nose/Sinuses: negative. Oropharynx: Lips, mucosa, and tongue normal, teeth and gums normal, oropharynx normal Neck: Supple, no adenopathy; thyroid symmetric, normal size, no bruits Lungs: Lungs clear to auscultation. No wheezing, rhonchi, rales Heart: RRR without murmur, gallop, or rubs. No ectopy Abdomen: Normal abdominal exam, Abdomen soft, non-tender. Bowel sounds normal. No masses, organomegaly Extremities: No deformities, edema, skin discoloration, clubbing or cyanosis. Good capillary refill. Musculoskeletal: No joint swelling, deformity, or tenderness ASSESSMENT/PLAN: 1. Mixed hyperlipidemia - ICD9: 272.2, ICD10: E78.2 (primary diagnosis) - good control - Continue current medication. 2. AMANDA (obstructive sleep apnea) - ICD9: 327.23, ICD10: G47.33 - stable. 3. Elevated prolactin level - ICD9: 790.99, ICD10: R79.89 - per endo 4. Primary hypertension - ICD9: 401.9, ICD10: I10 - good control - Continue current medication(s) - Goal of BP <130/80 5. GERD without esophagitis - ICD9: 530.81, ICD10: K21.9 - resume med. May need egd - OMEPRAZOLE 20 MG CAPSULE,DELAYED RELEASE 6. Adjustment disorder with depressed mood - ICD9: 309.0, ICD10: F43.21 - per psych 7. Recurrent acute serous otitis media of right ear - ICD9: 381.01, ICD10: H65.04 Use flonase he has at home. Consider ent if continues. Myah Arteaga documented in this [facility]11-22-2022 Miscellaneous Notes* Telephone Encounter - Tash Rouse RN - 09/20/2022 8:16 AM EST Please review and advise. documented in this [facility]11-15-2022 Miscellaneous Notes* Telephone Encounter - Tash Rouse RN - 09/13/2022 9:14 AM EST Message sent to patient. Closed. documented in this [facility]11-09-2022 Miscellaneous Notes* Telephone Encounter - Tash Rouse RN - 09/07/2022 8:28 AM EST Please review and advise. documented in this [facility]10-06-2022 History of Present illness Narrative* Hesham Koch APRN.LEATHER SORTER - 08/04/2022 9:26 AM EDT Orthopaedic Office Note: August 04, 2022 9:26 AM Vic Ballesteros 56 year old History: Regan is a very pleasant 56 year old male who presents today for left hip pain. He is well known to me having undergone a left total hip arthroplasty with Dr. Carrillo on 12/03/21. He reports he had been doing very well with this and had no pain up until a couple weeks ago. He denies any injury or trauma. He does report he has been doing more over the past 2-3 months because he has been feeling so good overall. He states pain is exacerbated by going up and down stairs, putting on shoes, flexing his hip up. He is concerned about the hip implant that something is wrong. Subjective: Left hip pain that is moderate. Worse with flexing hip up and putting on shoes. Updated ROS: No changes Updated Exam: Left Lower Extremity: HIP EXAM: Left: ROM: Extension: Normal Flexion: 110 degrees Internal Rotation: 30 degrees External Rotation: 30 degrees Abduction: 40 degrees Adduction: 30 degrees Strength: Abduction 5/5 and Flexion 3+/5 and pain with resisted hip flexion Palpation: No tenderness Log roll: non-painful. Straight leg raise: Negative Neurovascular Status: Sensation Intact and Moves foot and ankle up & down Updated Imaging: To my interpretation show left total hip arthroplasty in satisfactory position without evidence forloosening, subsidence, or osteolysis Assessment and Plan: Left total hip replacement, stable Left psoas tendonitis We discussed treatment options for psoas tendonitis. We will start with a medrol dose pack and daily anti-inflammatories. I have sent these prescriptions to his pharmacy. He was instructed to avoid activities that cause discomfort. He will notify us in 4 weeks if he has no improvement. I would consider a referral to radiology at that point for psoas tendon injection. I spent a total of approximately 25 minutes on the date of the service which included preparing to see the patient, [id number] patient care, completing clinical documentation, obtaining and/or reviewing separately obtained history, performing a medically appropriate examination, counseling and educating the patient/family/caregiver, ordering medications, tests, or procedures, independently interpreting results (not separately reported), communicating results to the patient/family/caregiver, and care coordination (not separately reported). Hesham Koch APRN.CNP Orthopaedic Surgery documented in this encounterTri[facility]10-06-2022 History of Present illness Narrative* SHANTA Savage - 08/04/2022 7:30 AM EDT Radiology Service Progress Note PATIENT NAME: Vic Ballesteros DATE OF SERVICE: August 04, 2022 TIME: 8:15 AM PATIENT IDENTITY VERIFICATION COMPLETED USING TWO (2) IDENTIFIERS: Name and Date of confirmedby patient verbally. FALL SCREENING: Has the patient had 2 falls in the last year or 1 fall with injury or currently using an Ambulatory Assistive Device (Walker, Cane, Wheelchair, Crutches, etc.)? No PATIENT GENDER DATA: Male PATIENT RELEVANT IMPLANT DATA REVIEWED: Not Applicable RADIOLOGY DEPARTMENT: General X-ray: Exam(s) Completed: Pelvis X-Ray: Pelvis with Hip Left and Wt. Bearing PERIPHERAL IV DATA: Not applicable SIGNED BY: SHANTA Savage August 04, 2022 8:15 AM documented in this encounterTri[facility]09-13-2022 Miscellaneous Notes* Telephone Encounter - Shelby MCKEE - 07/12/2022 1:39 PM EDT Patient called back and has been scheduled Thank you! * Telephone Encounter - Shelby MCKEE - 07/12/2022 12:59 PM EDT LVM & sent MC asking patient to CB and schedule Thanks documented in this encounterTri[facility]08-29-2022 Miscellaneous Notes* Telephone Encounter - Carlos Stone LPN - 06/27/2022 10:34 AM EDT Patient phones requesting refills as follows: Requested Prescriptions Pending Prescriptions Disp Refills clonazePAM (KLONOPIN) 1 mg tablet 45 tablet 0 Sig: TAKE 1/2 TABLET THREE TIMES A DAY NEEDED RAYMOND 04/27/22 NOV 10/27/22 See pt MC message: Patient Comment: Dr Arteaga I have had my intake appointment with an intaker natalie and am waiting to receive a date to see Psychiatry. If you have any questions please let me know. Please review and advise. Carlos Stone LPN documented in this encounterTri[facility]08-26-2022 Miscellaneous Notes* Telephone Encounter - Светлана St LPN - 06/24/2022 1:58 PM EDT ----- Message from Jake Alberto PA-C sent at 06/24/2022 7:48 AM EDT ----- Please update HM and surgical history, and generate recall letter for 10 year repeat colonoscopy documented in this encounterTri[facility]07-08-2022 Miscellaneous Notes* Telephone Encounter - Lacy Dixon - 05/06/2022 2:29 PM EDT 06/09/[address] Payne at the [facility]. Golytely prep. documented in this encounterTri[facility]07-08-2022 History of Present illness Narrative* Jake Alberto PA-C - 05/06/2022 1:16 PM EDT HISTORY AND PHYSICAL Vic Masterson Lesli 1965 REFERRING PHYSICIAN: Myah Arteaga MD CHIEF COMPLAINT: Consult (colonoscopy) HPI: The patient is a 56 year old male referred for endoscopy. Vic notes a long-term history ofconstipation and hemorrhoids. Patient denies any recent change in bowel habits, weight changes, blood in stools, black tarry stools or abdominal pain. Denies family history of colon issues. The patient notes no upper GI complaints. Vic has undergone prior endoscopy. Most recent colonoscopy 04/17/[address] Rossi . Patient was noted to have tortuous colon. Patient denies any discomfort or issues with that procedure. PAST MEDICAL HISTORY Diagnosis Date ACNE NEC 10/13/2006 ANXIETY STATE NOS 12/26/2008 Depression Dyslipidemia History of traumatic brain injury Hypogonadism male 10/30/1988 Left knee pain Obesity AMANDA (obstructive sleep apnea) 10/30/2005 cpap PMH - PAST MEDICAL HISTORY OF L 5 nerve injury workman comp PMH - PAST MEDICAL HISTORY OF 10/30/1988 Industrial accident fall Stroke (HCC) Thrombosed external hemorrhoid 10/26/2011 Unspecified site of spinal cord injury without evidence of spinal bone injury 01/25/2013 PAST SURGICAL HISTORY Procedure Laterality Date COLONOSCOPY FLX DX W/COLLJ SPEC WHEN PFRMD 04/17/2012 repeat 10 years LAPAROSCOPY SURG CHOLECYSTECTOMY 08/01/2017 Cholecystectomy, lap PAST SURGICAL HISTORY OF Right 1988 wrist fracture after work accident, states still has hardware PAST SURGICAL HISTORY OF 1988 exploratory after accident, opened from pubic bone to breastbone REPAIR NASAL SEPTUM DEFECT RPR 1ST INCAL/VNT HERNIA INCARCERATED 10/28/2019 TOTAL HIP REPLACEMENT Left 2021 VASECTOMY UNI/BI SPX W/POSTOP SEMEN EXAMS Bilateral 1999 Current Outpatient Medications Medication Sig buPROPion SR (ZYBAN SR; WELLBUTRIN SR) 150 mg 12 hr tablet Take 150 mg by mouth twice daily. DULoxetine (CYMBALTA) 60 mg capsule Take 60 mg by mouth twice daily. clonazePAM (KLONOPIN) 1 mg tablet TAKE 1/2 TABLET THREE TIMES A DAY NEEDED hydroCHLOROthiazide (HYDRODIURIL, ESIDRIX) 25 mg tablet Take 1 tablet by mouth once daily. omeprazole (PRILOSEC) 20 mg capsule Take 1 capsule by mouth daily before breakfast. 1/2 hr before meal. acetaminophen (TYLENOL EXTRA STRENGTH) 500 mg tablet Take 2 tablets by mouth every 8 hours as needed for pain. Tadalafil (CIALIS) 20 mg tab(s) TAKE 1 TABLET BY MOUTH 1-2 HOURS BEFORE SEXUAL INTRACOURSE NEEDED lidocaine 4 % gel Apply 1 Tube to affected area once daily. COMPOUNDED PRESCRIPTION Autopap @ 4-20 cm of water with humidification mask (per patient preference) optional chin strap (if indicated) and lifetime supplies DX: AMANDA 327.23 aspirin, enteric coated (ECOTRIN LOW STRENGTH) 81 mg EC tablet Take 1 tablet by mouth twice daily. No current facility-administered medications for this visit. ALLERGIES: Penicillin G, Sulfa (Sulfonamide Antibiotics), and Celebrex [Celecoxib] PERSONAL HISTORY: Social History Tobacco Use Smoking status: Never Smoker Smokeless tobacco: Never Used Vaping Use Vaping Use: Never used Substance Use Topics Alcohol use: Yes Alcohol/week: 1.0 standard drink Types: 1 Cans of Beer (12oz) per week Drug use: No FAMILY HISTORY: FAMILY HISTORY Problem Relation Age of Onset Heart Mother Hypertension Mother Cancer Father lung None Brother None Brother other (lymphoma) Sister other (car accident) Sister REVIEW OF SYMPTOMS: The review of systems data was entered by the nurse and reviewed by ms Nursing Notes: Vivek Soto RN 05/06/2022 1:13 PM Signed REVIEW OF SYSTEMS: General: The patient denies fatigue, denies weight loss, NOTES weight gain, denies feeling hot, anddenies feelings of cold. Eyes: The patient denies glaucoma, denies eye injury/surgery, wears glasses or contacts. Ear/Nose/Throat: The patient NOTES allergies, denies hayfever, NOTES ear infections, and denies bloody noses. Cardiovascular: The patient denies chest pain, denies heart disease, NOTES high blood pressure,denies cardiac stent, denies prior heart attack, denies irregular heart beat, denies high cholesterol, denies poor circulation, denies heart failure, other cardiac issues, denies claudication, denies coldfeet, denies peripheral arterial stent. Respiratory: The patient denies tuberculosis, denies pneumonia, denies frequent cough, denies pulmonary embolism, denies shortness of breath, and denies coughing up blood. Gastrointestinal: The patient denies difficulty swallowing, NOTES acid reflux, denies ulcers, denies vomiting, denies jaundice/hepatitis, NOTES gallbladder problems, denies black or tarry stools, NOTES hemorrhoids, NOTES bleeding from rectum, denies diverticulitis, denies constipation, denies diarrhea, denies loss of stool control, and NOTES hernias. Kidney/Bladder: The patient denies kidney stones, denies urine infections, and denies bloody urine. Skin: The patient denies a history of skin cancer, denies bleeding/changing moles, and denies a history of skin rash. Neurologic: The patient denies a history of epilepsy/convulsions, denies headaches, NOTES head/spinal injuries, and stroke/TIA. Psychiatric: The patient denies psychiatric medications, denies depression, and denies voices, denies substance abuse. Endocrine: The patient denies thyroid disorders, denies diabetes, and denies hormonal problems. Hematologic: The patient denies a history of bruising, denies bleeding, and denies anemia, denies blood clots. Infections: The patient denies a history of measles and mumps, denies rheumatic fever, and denies sexually transmitted diseases. Musculoskeletal: The patient NOTES back pain/injury, NOTES back problems, NOTES sciatica, NOTES knee/foot trouble, NOTES arthritis, or denies gout. When was patient's last Mammogram screening? N/A Last Colonoscopy: 2011 Vivek Soto RN PHYSICAL EXAMINATION: General: The patient is 56 year old male, well nourished, well hydrated in no acute distress. The patient is oriented to time, place, and person. VITALS: Blood pressure 124/82, pulse 81, temperature 36.4 C (97.6 F), height 165.1 cm (5' 5), weight 118.6 kg (261 lb 6.4 oz), SpO2 95 %. Body mass index is 43.5 kg/m . HEENT: Normal cephalic, ataumatic, pupils are equally round, sclera are anicteric, mucous membranesare moist, oropharynx is clear. Neck has no masses, asymmetry or lymphadenopathy. Respiratory: Clear to auscultation and percussion. Normal respiratory excursion and pattern. Cardiac: Examination is regular rate and rhythm. Normal S1/S2 Abdominal exam: Soft, nontender, with no palpable masses. No hepatosplenomegaly. No palpable hernias. Extremities: no clubbing, cyanosis or edema. No adenopathy. LABORATORY VALUES: As Noted RADIOLOGIC STUDIES: As Noted Assessment IMPRESSION: encounter for screening colonoscopy PLAN: I have reviewed my findings with the surgeon. Will plan for lower endoscopy. We discussed therisks and benefits of the planned endoscopy. I have informed the patient that complications can occur including failure to complete the endoscopy and perforation. The patient had the opportunity to ask questions concerning the planned endoscopy. My staff has also explained the procedure to the patient in understandable terms and has given the patient printed material concerning the procedure. Thepatient freely consents to surgery. The patient was offered a [facility]/procedure at a [facility]. I have counseled the patient regarding the risk of exposure to and/or potential harm posed by the COVID-19 virus with having a surgery/procedure at this time versus the risk of delaying the surgery/procedure. It is not possible to know either the risk of delaying the surgery or procedure or chance of getting an infection with perfect accuracy, but a joint decision was made between the patient and myself to proceed at this time with endoscopy. I have explained to the patient the difference between IV conscious sedation and MAC anesthesia - and I have offered either, according to the patient's wishes. I have explained that with IV conscioussedation there is no anesthesia provider available and therefore there is a limitation of the amount of IV medications that can be given and that the patient may wake up in the middle of the procedure and/or experience pain/discomfort during the procedure. Further discussion was done and the patient was given the opportunity to ask questions and all questions were answered. The patient chooses IVconscious sedation I plan to use Golytely bowel preparation Diagnoses: (Z12.11) Screening for colon cancer Consultation requested by Dr. Arteaga for an opinion regarding screening colonoscopy. My final recommendations will be communicated back to the requesting physician by way of shared Medical record or letter to requesting physician via US mail. Jake Alberto PA-C documented in this encounterTri[facility]07-08-2022 Nurse Note* Vivek Soto RN - 05/06/2022 1:06 PM EDT REVIEW OF SYSTEMS: General: The patient denies fatigue, denies weight loss, NOTES weight gain, denies feeling hot, anddenies feelings of cold. Eyes: The patient denies glaucoma, denies eye injury/surgery, wears glasses or contacts. Ear/Nose/Throat: The patient NOTES allergies, denies hayfever, NOTES ear infections, and denies bloody noses. Cardiovascular: The patient denies chest pain, denies heart disease, NOTES high blood pressure,denies cardiac stent, denies prior heart attack, denies irregular heart beat, denies high cholesterol, denies poor circulation, denies heart failure, other cardiac issues, denies claudication, denies coldfeet, denies peripheral arterial stent. Respiratory: The patient denies tuberculosis, denies pneumonia, denies frequent cough, denies pulmonary embolism, denies shortness of breath, and denies coughing up blood. Gastrointestinal: The patient denies difficulty swallowing, NOTES acid reflux, denies ulcers, denies vomiting, denies jaundice/hepatitis, NOTES gallbladder problems, denies black or tarry stools, NOTES hemorrhoids, NOTES bleeding from rectum, denies diverticulitis, denies constipation, denies diarrhea, denies loss of stool control, and NOTES hernias. Kidney/Bladder: The patient denies kidney stones, denies urine infections, and denies bloody urine. Skin: The patient denies a history of skin cancer, denies bleeding/changing moles, and denies a history of skin rash. Neurologic: The patient denies a history of epilepsy/convulsions, denies headaches, NOTES head/spinal injuries, and stroke/TIA. Psychiatric: The patient denies psychiatric medications, denies depression, and denies voices, denies substance abuse. Endocrine: The patient denies thyroid disorders, denies diabetes, and denies hormonal problems. Hematologic: The patient denies a history of bruising, denies bleeding, and denies anemia, denies blood clots. Infections: The patient denies a history of measles and mumps, denies rheumatic fever, and denies sexually transmitted diseases. Musculoskeletal: The patient NOTES back pain/injury, NOTES back problems, NOTES sciatica, NOTES knee/foot trouble, NOTES arthritis, or denies gout. When was patient's last Mammogram screening? N/A Last Colonoscopy: 2011 Vivek Soto RN documented in this encounterTri[facility]06-29-[facility]22 History of Present illness Narrative* Myah Arteaga MD - 04/27/2022 1:26 PM EDT Patient presents with: Follow Up HPI: Patient presents today for office visit for follow up. HTN: Patient is compliant with meds Yes Monitors bp at home: Yes. Denies side effects: Yes. Chest pain: No. Dyspnea: No. Edema: No. Palpitations: No. Syncope: No. Headache: No. Dizziness: No. AMANDA: uses CPAP regularly. Sleeps well: Yes. Feels rested on awakening: Yes No daytime fatigue: Yes Snoring: Not snoring when using CPAP PSYCH: Patient restarted meds on 04/20/22 Patient states overall mood is good and doing well. Attends counseling [id number]. Chronic pain: Paresthesia in right leg. Patient currently taking clozapine. Patient awaiting insurance approval prior to epidural pain injections. GASTROENTEROLOGY: Chronic constipation evidenced by past injury. No abdo pain. Eating and drinking well. HYPOGONADISM: Patient having difficulty with sex life. Patient requesting alternative therapy. Has seen endo in the past for the same. MEDICATIONS: Current Outpatient Medications Medication Sig buPROPion SR (ZYBAN SR; WELLBUTRIN SR) 150 mg 12 hr tablet Take 150 mg by mouth twice daily. DULoxetine (CYMBALTA) 60 mg capsule Take 60 mg by mouth twice daily. clonazePAM (KLONOPIN) 1 mg tablet TAKE 1/2 TABLET THREE TIMES A DAY NEEDED hydroCHLOROthiazide (HYDRODIURIL, ESIDRIX) 25 mg tablet Take 1 tablet by mouth once daily. omeprazole (PRILOSEC) 20 mg capsule Take 1 capsule by mouth daily before breakfast. 1/2 hr before meal. aspirin, enteric coated (ECOTRIN LOW STRENGTH) 81 mg EC tablet Take 1 tablet by mouth twice daily. COMPOUNDED PRESCRIPTION Autopap @ 4-20 cm of water with humidification mask (per patient preference) optional chin strap (if indicated) and lifetime supplies DX: AMANDA 327.23 acetaminophen (TYLENOL EXTRA STRENGTH) 500 mg tablet Take 2 tablets by mouth every 8 hours as needed for pain. Tadalafil (CIALIS) 20 mg tab(s) TAKE 1 TABLET BY MOUTH 1-2 HOURS BEFORE SEXUAL INTRACOURSE NEEDED lidocaine 4 % gel Apply 1 Tube to affected area once daily. No current facility-administered medications for this visit. ALLERGIES: ALLERGIES Allergen Reactions Penicillin G Hives Sulfa (Sulfonamide * Hives Celebrex [Celecoxib] Rash PAST MEDICAL HISTORY Diagnosis Date ACNE NEC 10/13/2006 ANXIETY STATE NOS 12/26/2008 Depression Dyslipidemia History of traumatic brain injury Hypogonadism male 10/30/1988 Left knee pain Obesity AMANDA (obstructive sleep apnea) 10/30/2005 cpap PMH - PAST MEDICAL HISTORY OF L 5 nerve injury workman comp PMH - PAST MEDICAL HISTORY OF 10/30/1988 Industrial accident fall Stroke (HCC) Thrombosed external hemorrhoid 10/26/2011 Unspecified site of spinal cord injury without evidence of spinal bone injury 01/25/2013 PAST SURGICAL HISTORY Procedure Laterality Date COLONOSCOPY FLX DX W/COLLJ SPEC WHEN PFRMD 04/17/2012 repeat 10 years LAPAROSCOPY SURG CHOLECYSTECTOMY 08/01/2017 Cholecystectomy, lap PAST SURGICAL HISTORY OF Right 1988 wrist fracture after work accident, states still has hardware PAST SURGICAL HISTORY OF 1988 exploratory after accident, opened from pubic bone to breastbone REPAIR NASAL SEPTUM DEFECT RPR 1ST INCAL/VNT HERNIA INCARCERATED 10/28/2019 VASECTOMY UNI/BI SPX W/POSTOP SEMEN EXAMS Bilateral 1999 FAMILY HISTORY Problem Relation Age of Onset Heart Mother Hypertension Mother Cancer Father lung None Brother None Brother other (lymphoma) Sister other (car accident) Sister Social History Tobacco Use Smoking status: Never Smoker Smokeless tobacco: Never Used Vaping Use Vaping Use: Never used Substance Use Topics Alcohol use: Yes Alcohol/week: 1.0 standard drink Types: 1 Cans of Beer (12oz) per week Drug use: No Reviewed current medications, allergies, past medical history, surgical history, family history andsocial history today. REVIEW OF SYSTEMS All other reviewed and negative other than HPI. HEALTH MAINTENANCE: Reviewed health maintenance issues today COLORECTAL CANCER SCREENING due on 04/17/2022 VITALS: BP 122/72 Pulse 68 Wt 118.8 kg (262 lb) BMI 43.60 kg/m Last 4 Encounter Wt Readings: Date: Wt: 04/27/2022 118.8 kg (262 lb) 03/14/2022 123.4 kg (272 lb) 02/25/2022 120.2 kg (265 lb) 02/21/2022 121.7 kg (268 lb 6.4 oz) PHYSICAL EXAMINATION: General appearance: Well appearing, alert, in no acute distress, well-hydrated, well nourished. Skin: Skin color, texture, turgor normal, no suspicious rashes or lesions Head: Normocephalic, no masses, lesions, tenderness or abnormalities Eyes: Anicteric sclera. Pupils are equally round and reactive to light. Extraocular movements are intact. Neck: Supple, no adenopathy; thyroid symmetric, normal size, no bruits Back: Normal exam Lungs: Lungs clear to auscultation. No wheezing, rhonchi, rales Heart: RRR without murmur, gallop, or rubs. No ectopy Abdomen: Normal abdominal exam, Abdomen soft, non-tender. Bowel sounds normal. No masses, organomegaly Extremities: No deformities, edema, skin discoloration, clubbing or cyanosis. Good capillary refill. Musculoskeletal: No joint swelling, deformity, or tenderness Peripheral pulses: Normal Neuro: Gait normal. Reflexes normal and symmetric. Sensation grossly intact. ASSESSMENT/PLAN: 1. Primary hypertension - ICD9: 401.9, ICD10: I10 (primary diagnosis) - good control - Continue current medication(s) - Goal of BP <130/80 2. Secondary male hypogonadism - ICD9: 257.2, ICD10: E29.1 - CONSULT TO ENDOCRINOLOGY 3. Elevated prolactin level - ICD9: 790.99, ICD10: R79.89 - CONSULT TO ENDOCRINOLOGY 4. Screening for colon cancer - ICD9: V76.51, ICD10: Z12.11 - CONSULT TO GENERAL SURGERY 5. Adjustment disorder with depressed mood - ICD9: 309.0, ICD10: F43.21 6. AMANDA (obstructive sleep apnea) - ICD9: 327.23, ICD10: G47.33 - stable. 7. Mixed hyperlipidemia - ICD9: 272.2, ICD10: E78.2 - doing well. Myah Arteaga MD documented in this encounterTrihealth [facility]06-15-2022 Miscellaneous Notes* Telephone Encounter - AMPARO Scales - 04/13/2022 10:43 AM EDT Behavioral Health Social Work Progress Note [facility] encounter type: Telephone Encounter Attempts to Outreach: 1 attempt Referral made: Psychiatry - External Psychiatry-External referral type: Medication Management Reason for external referral: Other (workman's comp provider) Final Disposition: Resources given (04-13-22 Pt called wanting to sched psych, [facility] not listed as covered provider on workman's comp, will call covered provider) Patient Discharged?: Yes Patient reported that caregiver was able to meet their needs today?: N/A [facility] received call from Pt -wanting to establish with psychiatry services at [facility] -Pt called [facility] Ws and was given [facility] number -no consult has been placed -Pt has been seeing psychiatrist and counselor at [facility] in [facility] claim for depression -psychiatrist no longer wants to see him -therefore looking to establish with another psychiatrist [facility] explained [facility] model -pointed out 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 No further contact is indicated at this time AMPARO Scales April 13, 2022 documented in this encounterTrihealth [facility]05-31-2022 Miscellaneous Notes* Telephone Encounter - Myah Arteaga MD - 03/29/2022 2:11 PM EDT bp is good. * Telephone Encounter - Augusta Evelia KWOK - 03/29/2022 1:42 PM EDT Manual Readin/77 Pulse: 69 Reason for blood pressure check - Last BP elevated and Medication adjustment Patient is: Taking medication as prescribed Yes Took medication today No If no, date medication last taken 03/28/22 Experiencing side effects No BP was elevated at last appt 03/14/22. HCTZ was increased to 25mg daily. Tolerating medication change well. He has not had medication yet today. Denies any chest pain, shortness of breath, dizziness, or headaches. Daily caffeine use. No personal history of tobacco use; no current exposure. Alert andoriented. Pt has been identified by name and birthdate: Yes Allergies reviewed: Yes Latex allergy: no. Medication - prescribed and OTC reviewed and updated: Yes Do you need any prescription refills prior to your next visit: No Health Maintenance: Reviewed and not up to date and provider notified Patient advised to continue with current medications and would be contacted after review by PCP. Augusta Altamirano LPN documented in this encounterTrihealth [facility]05-10-2022 Instructions* Patient Instructions* Angelica Bourne APRN.ESDRAS - 03/08/2022 3:26 PM EDT [facility] DERMATOLOGY DEPARTMENT Liquid Nitrogen Therapy Care Instructions 1. The area may be red and puffy immediately following treatment. A cool compress or washcloth will help with the discomfort. 2. A blister, even a blood blister, may form. This is normal. You may feel better if you break or pop it. 3. Clean area with soap and water daily. A band aid is not necessary, but may be used for protection. Please change it daily. Do not leave a soiled or wet band aid on the wound. 4. Apply Vaseline or Aquaphor daily until scab comes off. 5. Aspirin, Tylenol, or Ibuprophen may be used for pain. 6. As soon as scab has formed, you do not need to cleanse area and you may leave the bandage off. The scab will generally fall off in a few weeks but can take longer. 7. Call if you have any problems or questions or if these areas recur or do not go away. documented in this encounterTrihealth [facility]05-10-2022 History of Present illness Narrative* Angelica Bourne APRN.ESDRAS - 03/08/2022 3:18 PM EDT ESTABLISHED PATIENT This patient, Vic Ballesteros, is a 56 year old male. Last visit to a corrective therapist: 11/23/21 skin check Chief Complaint: Derm Problem (Growth on nose for removal) History of Present Ilness: Patient presents today for treatment of AK on the nose deferred at last treatment PERSONAL HISTORY: History of melanoma? No History of non melanoma skin cancer? No History of biopsy proven atypical nevi? No History of blistering sunburns? Yes History of organ transplantation? No History of tanning bed use? No FAMILY HISTORY: No chronic skin disease or skin cancer SOC: Social History Tobacco Use Smoking status: Never Smoker Smokeless tobacco: Never Used Vaping Use Vaping Use: Never used Substance Use Topics Alcohol use: Yes Alcohol/week: 1.0 standard drink Types: 1 Cans of Beer (12oz) per week Drug use: No MEDS: Current outpatient prescriptions: Current Outpatient Medications on File Prior to Visit Medication Sig hydroCHLOROthiazide (HYDRODIURIL, ESIDRIX) 12.5 mg tablet Take 12.5 mg by mouth once daily. buPROPion SR (WELLBUTRIN SR) 100 mg 12 hr tablet Take 1 tablet by mouth twice daily. clonazePAM orally disintegrating (KLONOPIN WAFER) 0.25 mg disintegrating tablet Take 1 tablet by mouth three times daily as needed for up to 60 days. aspirin, enteric coated (ECOTRIN LOW STRENGTH) 81 mg EC tablet Take 1 tablet by mouth twice daily. acetaminophen (TYLENOL EXTRA STRENGTH) 500 mg tablet Take 2 tablets by mouth every 8 hours as needed for pain. Tadalafil (CIALIS) 20 mg tab(s) TAKE 1 TABLET BY MOUTH 1-2 HOURS BEFORE SEXUAL INTRACOURSE NEEDED lidocaine 4 % gel Apply 1 Tube to affected area once daily. COMPOUNDED PRESCRIPTION Autopap @ 4-20 cm of water with humidification mask (per patient preference) optional chin strap (if indicated) and lifetime supplies DX: AMANDA 327.23 No current facility-administered medications on file prior to visit. ALLERGY: ALLERGIES Allergen Reactions Penicillin G Hives Sulfa (Sulfonamide * Hives Celebrex [Celecoxib] Rash REVIEW OF SYSTEMS: Constitutional: Patient feels well and denies any recent fevers, chills, or nightsweats.. Updated / Reviewed: I have reviewed the above elements obtained by clinical support and these elements have been updated where appropriate. Angelica Bourne, HEYDI.LEATHER SORTER PHYSICAL EXAM: The patient is a pleasant male in no distress. Patient appears healthy, well developed, well nourished and in otherwise good health. Patient is alert and oriented x 3. A skin exam was done of the Nose. Figueroa Skin Type II Thin scaling pink plaque in the nasal dorsum A/P: 1. Actinic keratosis Cryosurgery of Non-Malignant Lesion(s) Risks, benefits, alternatives and personnel required for cryosurgery reviewed with patient including but not limited to pain, scarring and PIH. Pt verbalizes understanding and wishes to proceed. Derm Nurse Practitioner: Angelica Bourne APRN.CNP Cryosurgery performed with Liquid Nitrogen via cryostat spray gun to Actinic Keratosis . 1 lesion(s) treated. Patient tolerated well. Wound care instructions provided, pt verbalizes understanding. Patient informed to return for evaluation of any persistent, unresolved lesion after treatment. Sunscreen (SPF 30 or higher) and sun protection recommended. Should any areas change in size, shape or color, bleed or become tender, the patient will contact the office for evaluation sooner than their interval appointment. Patient verbalizes understanding and agrees with treatment plan. Follow up: Annual FBSE The documentation for this note was completed by Luz WOMACK acting as scribe for Angelica Bourne APRN.CNP. March 08, 2022 3:20 PM Angelica Bourne APRN.CNP I agree with the ROS and Past Histories independently gathered by the clinical operations support representative and the remaining scribed note accurately describes my personal service to the patient today, March 0823:28 PM. documented in this encounterTrihealth [facility]04-29-2022 Instructions* Patient Instructions* Edward Dhaliwal MD - 02/25/2022 11:54 AM EDT Your MRI shows changes of aging. These are unchanged from MRI in February 2021. There is a notable change on the right side that the radiologist at [facility] noted, but this is clearly chronic and seen on prior MRI. While this can be considered a stroke, the MRI isn't so telling as to what it is. I would classify as changes one accumulates as one gets older. I don't know what was seen on scans in 1988 to say there is a scar on the right side of the brainsurface. The change on R side seen on MRI recently is deep in the brain, but could still be from the trauma in 1988. I don't think your symptoms are related to a new or old stroke. I don't think your symptoms of whooshing sounds are related to abnormal artery flow because yours are rather brief, triggered by head motion. Since these symtpoms started after going off medications, I recommend restarting some at lower doses. --we will restart Wellbutrin (Bupropion) at 100 mg twice a day. --we will restart clonazepam at 0.25 mg three times a day. --I am making the referral to psychiatry. I hope the symptoms improve. If the symptoms don't improve, let me know. I will refer you to dizziness/balance specialist. Edward Dhaliwal M.D. Staff, [facility] February 25, 2022 11:57 AM documented in this encounterTrihealth [facility]04-29-2022 History of Present illness Narrative* Edward Dhaliwal MD - 02/25/2022 10:00 AM EDT [facility] Initial Visit Consultation is requested by: SELF PCP: Myah Arteaga [address] [place] [id number] CEREBROVASCULAR HISTORY Vic Ballesteros is a 56 year old male. Reason for Visit: stroke Date of Last Event: 02/21/2022 History of Event: 1988 closed head injury 1988. Right AFO for L5 nerve injury and foot drop H/o depression over 5 years. Psychiatrist in [facility], but no longer sees Worker's Comp patients and only sees counselor now. Had had medicaiton side effects of erectile dysfunction. Left hip replacement. Pain was better and was feeling better. He weaned himself off gabapentin, Wellbutrin, Cymbalta, Clonazepram over the past month. Off medciation entirely 7-10 days ago. Symptoms started after off medication entirely: Balance issues. Turning head and hears whooshing feeling, sound? But also hears surrounding background sound less. Pulse more than once sometimes. Also pressure in head. Goes away quickly. Turning head quick, bending over, he feels he hears heart beat. No change since the symptoms started a week ago. Monday02/21/22 - saw seen by EDITOR DEPARTMENT at PCP office. Sent to ED. Had MRI, ECG. Discharged from ED with HCTZ and aspirin. BP bordeline for many years. Started HCTZ after ED visit. Not sleeping well. A lot of... anxiety. Difficulty falling asleep. Appetite has increased in pastmonth and gained weight. AMANDA --on CPAP for >10 years. Chronic burning sensation on R foot, sometimes sharp since 1988 trauma. No change in pain after going off the medications the past month. R foot drop since 1988 trauma, wears AFO. His brother Teodoro Ballesteros has seen me before. Antiplatelets/Anticoagulants: Aspirin - starting 02/21/22 PAST MEDICAL HISTORY Diagnosis Date ACNE NEC 10/13/2006 ANXIETY STATE NOS 12/26/2008 Depression Dyslipidemia History of traumatic brain injury Hypogonadism male 10/30/1988 Left knee pain Obesity AMANDA (obstructive sleep apnea) 10/30/2005 cpap PMH - PAST MEDICAL HISTORY OF L 5 nerve injury workman comp PMH - PAST MEDICAL HISTORY OF 10/30/1988 Industrial accident fall Stroke (HCC) Thrombosed external hemorrhoid 10/26/2011 Unspecified site of spinal cord injury without evidence of spinal bone injury 01/25/2013 PAST SURGICAL HISTORY Procedure Laterality Date COLONOSCOPY FLX DX W/COLLJ SPEC WHEN PFRMD 04/17/2012 repeat 10 years LAPAROSCOPY SURG CHOLECYSTECTOMY 08/01/2017 Cholecystectomy, lap PAST SURGICAL HISTORY OF Right 1988 wrist fracture after work accident, states still has hardware PAST SURGICAL HISTORY OF 1988 exploratory after accident, opened from pubic bone to breastbone REPAIR NASAL SEPTUM DEFECT RPR 1ST INCAL/VNT HERNIA INCARCERATED 10/28/2019 VASECTOMY UNI/BI SPX W/POSTOP SEMEN EXAMS Bilateral 1999 FAMILY HISTORY Problem Relation Age of Onset Heart Mother Hypertension Mother Cancer Father lung None Brother None Brother other (lymphoma) Sister other (car accident) Sister Social History Tobacco Use Smoking status: Never Smoker Smokeless tobacco: Never Used Vaping Use Vaping Use: Never used Substance Use Topics Alcohol use: Yes Alcohol/week: 1.0 standard drink Types: 1 Cans of Beer (12oz) per week Drug use: No MEDICATIONS Current Outpatient Medications Medication Sig hydroCHLOROthiazide (HYDRODIURIL, ESIDRIX) 12.5 mg tablet Take 12.5 mg by mouth once daily. aspirin, enteric coated (ECOTRIN LOW STRENGTH) 81 mg EC tablet Take 1 tablet by mouth twice daily. acetaminophen (TYLENOL EXTRA STRENGTH) 500 mg tablet Take 2 tablets by mouth every 8 hours as needed for pain. Tadalafil (CIALIS) 20 mg tab(s) TAKE 1 TABLET BY MOUTH 1-2 HOURS BEFORE SEXUAL INTRACOURSE NEEDED lidocaine 4 % gel Apply 1 Tube to affected area once daily. COMPOUNDED PRESCRIPTION Autopap @ 4-20 cm of water with humidification mask (per patient preference) optional chin strap (if indicated) and lifetime supplies DX: AMANDA 327.23 No current facility-administered medications for this visit. ALLERGIES ALLERGIES Allergen Reactions Penicillin G Hives Sulfa (Sulfonamide * Hives Celebrex [Celecoxib] Rash PHYSICAL EXAMINATION BP 143/78 (BP Site: Left Arm, BP Position: Sitting, BP Cuff Size: Large Adult) Pulse 78 Temp 36C (96.8 F) (Temporal) Resp 14 Ht 165.1 cm (5' 5) Wt 120.2 kg (265 lb) SpO2 98% BMI 44.10kg/m Obese man in NAD HEENT: Normocephalic, atraumatic. Sclerae anicteric. ororpharynx clear. Neck: No carotid bruit. Heart: Regular rate, S1 S2, no murmurs. Extremities: No edema, cyanosis, or clubbing. Skin: No rash or ecchymoses. R hand scar. Neurological: Awake, alert, speech fluent, no dysarthria. Cranial Nerves: PERRL, extraocular movements full without nystagmus. No nystagmus with head turning, even after he had subjective whooshing sound. Visual montero full. Facial sensation dimished on R. Facial movements good. Motor: Decreased R leg muscle bulk. Some movement at R ankle. No pronator drift or tremor. Sensation: Decreased light touch in over R calf and foot (intact over donato) Coordination: Fast finger tapping intact. Reflexes: 2+ reflexes symmetric, absent R ankle reflex. Gait: Limps due to AFO and foot drop. LABS Cholesterol: Cholesterol, Total (mg/dL) Date Value 11/16/2018 194 LDL Cholesterol (mg/dL) Date Value 11/16/2018 141 HDL Cholesterol (mg/dL) Date Value 11/16/2018 42 Triglyceride (mg/dL) Date Value 11/16/2018 55 Diabetes: No results found for: HBA1C IMAGING MRI brain 02/21/2022 [facility]: IMPRESSION: No evidence of acute ischemia. 5 mm focal white matter findings suggestive of chronic microvascular change. Patient Entered Questionnaires PROMIS/NeuroQoL Score Percentiles Physical Health 02/24/2022 Physical Function Percentile 4 Sleep Percentile 12 Fatigue Percentile 8 Pain Interference Percentile 4 PROMIS SOCIAL ROLE SCORE 02/24/2022 Social Role Satisfaction Percentile 14 Mental Health 02/24/2022 NeuroQol Cognitive Function Percentile 10 General Self-Efficacy Percentile 5 PROMIS Global Health Scale 02/24/2022 10/24/2021 05/19/2021 Physical Health Percentile 4 2 7 Mental Health Percentile 5 - - Percentiles provide an indication of how a patient's score ranks in relation to the [place] general population. > 31st percentile is within normal limits or better * < 31st percentile is at least SD worse than population, which may be clinically relevant < 16th percentile is at least 1 SD worse than population and warrants attention Depression Screening PHQ-9 11/30/2020 05/19/2021 02/24/2022 Score 12 19 16 Self-Harm Response 0 1 0 PHQ-9 Scores: PHQ-9 Self-Harm (Item 9) Response: 0 - 9 No to Mild depression 0 - Not at all 10 - 14 Moderate depression 1 - Several Days > 15 Severe depression 2 - More than half the days 3 - Nearly every day Sleep Apnea Probability Snores loudly: Yes Tired, fatigued or sleepy in daytime: Yes Stops breathing or choking/gasping during sleep: Yes High blood pressure: No Sleep Apnea Probability Score 10/24/2021 Sleep Apnea Screen V2 68.88 (Recommend sleep study) Stroke Mechanism and Scales Noncerebrovascular Concern: Yes IMPRESSION No stroke. MRI shows chronic age-related changes, stable since 02/2021. He had work related trauma in 1988 and was told that he had a scar on the brain surface on R side (subdural hematoma? Contusion?). I see on MRI gradient echo changes to suggest old parenchymal hemorrhage. I wonder if the T2/FLAIR hyperintensity seen on R subcortical region was the scar since then. His symptoms are various: Balance issue, which is not very specific. His whooshing sensation appears to be a momentary sound, with decrease in other background noise, triggered by head movement. Unlike vertigo, the sensation does not last. Unlike pulsatile tinnitus of turbulent blood flow, this only occurs momentarily with head motion. This does not occur with a particular head position. He also had some R facial and tongue numbness, but that does not appear to be prominent. I do not feel further evaluation or arteries or vestibular function is not warrant at this time. His symptoms started after stopping multiple psychoactive medications. Most reasonable step is to restart some at low dose to avoid side effect but see some benefits. Pain does not appear to be the main issue and I do not feel that need to restart gabapentin or Cymbalta (duloxetine) as a priority (jordon since his R foot pain did not worsen over the past month). Given the choice of bupropion or duloxetine, he chose bupropion because he has been on this the longest. --restart bupropion at 100 mg bid (150 bid previously). --restart clonazepam 0.25 mg tid (rather than 0.5 mg tid). --referral to psychiatry. RTC as needed. If imbalance and whooshing sound persists, will refer to vestibular neurology Medical Decision Making I spent a total of 60 minutes on the date of service which included preparing to see the patient, [id number] patient care, completing clinical documentation, performing a medically appropriate examination, counseling and educating the patient/family/caregiver and ordering medications, tests, or procedures SIGNATURE Edward Dhaliwal M.D. Staff, [facility] February 25, 2022 3:12 PM CC SELF Myah Arteaga [address] [place] [id number] documented in this encounterTrihealth [facility]22 Instructions* Patient Instructions* Marita Moore APRN.CNP - 02/21/2022 8:45 AM EDT 1. Go to the ER to be checked. documented in this encounterTrihealth [facility]04-25-[facility]22 History of Present illness Narrative* Marita Moore APRN.CNP - 02/21/2022 8:38 AM EDT This is a 56 year old male who presents today with: Patient presents with: Acute Visit: whoosing feeling in my head; recently tapered off of antidepressants; bp is running high HISTORY OF PRESENT ILLNESS: Vic Ballesteros is a 56 year old male. Patient presents with: Acute Visit: whoosing feeling in my head; recently tapered off of antidepressants; bp is running high Pt presents today with complaint of whooshing feeling in the head. Intermittent in nature. Refers that everything improved so much after hip surgery in November, he decided to get stop the antidepressants. Refers that he has been off the antidepressants for 3-4 weeks. (cymbalta, wellbutrin, clonazepam). He notices that his blood pressure has been running higher than normal. HTN: Patient is compliant with meds - N/A Monitors bp at home: Yes. Denies side effects: n/a . Chest pain: No. Dyspnea: No. Edema: Feels like hands are sore/tight. Palpitations: Yes. Refers that he can hear his heart beating in his ears. Syncope: No. Headache: No. Dizziness: Yes. Whooshing. Gets some numbness of the right side of face. Refers that it correlates with stopping the medication. Tingling. Sometimes doesn't feel like his mouth works right. [place] like there was restriction in the back of the throat. Refers that feels like something in the back of the throat. Tongue feels numb. PAST MEDICAL HISTORY: PAST MEDICAL HISTORY Diagnosis Date ACNE NEC 10/13/2006 ANXIETY STATE NOS 12/26/2008 Depression History of traumatic brain injury Hypogonadism male 10/30/1988 Left knee pain Obesity AMANDA (obstructive sleep apnea) 10/30/2005 cpap PMH - PAST MEDICAL HISTORY OF L 5 nerve injury workman comp PMH - PAST MEDICAL HISTORY OF 10/30/1988 Industrial accident fall Thrombosed external hemorrhoid 10/26/2011 Unspecified site of spinal cord injury without evidence of spinal bone injury 01/25/2013 PAST SURGICAL HISTORY Procedure Laterality Date COLONOSCOPY FLX DX W/COLLJ SPEC WHEN PFRMD 04/17/2012 repeat 10 years LAPAROSCOPY SURG CHOLECYSTECTOMY 08/01/2017 Cholecystectomy, lap PAST SURGICAL HISTORY OF Right 1988 wrist fracture after work accident, states still has hardware PAST SURGICAL HISTORY OF 1988 exploratory after accident, opened from pubic bone to breastbone REPAIR NASAL SEPTUM DEFECT RPR 1ST INCAL/VNT HERNIA INCARCERATED 10/28/2019 VASECTOMY UNI/BI SPX W/POSTOP SEMEN EXAMS Bilateral 1999 ALLERGIES Penicillin G, Sulfa (Sulfonamide Antibiotics), and Celebrex [Celecoxib] MEDICATIONS Current Outpatient Medications Medication Sig aspirin, enteric coated (ECOTRIN LOW STRENGTH) 81 mg EC tablet Take 1 tablet by mouth twice daily. acetaminophen (TYLENOL EXTRA STRENGTH) 500 mg tablet Take 2 tablets by mouth every 8 hours as needed for pain. Tadalafil (CIALIS) 20 mg tab(s) TAKE 1 TABLET BY MOUTH 1-2 HOURS BEFORE SEXUAL INTRACOURSE NEEDED lidocaine 4 % gel Apply 1 Tube to affected area once daily. COMPOUNDED PRESCRIPTION Autopap @ 4-20 cm of water with humidification mask (per patient preference) optional chin strap (if indicated) and lifetime supplies DX: AMANDA 327.23 No current facility-administered medications for this visit. FAMILY HISTORY Problem Relation Age of Onset Heart Mother Hypertension Mother Cancer Father lung None Brother None Brother other (lymphoma) Sister other (car accident) Sister Social History Tobacco Use Smoking status: Never Smoker Smokeless tobacco: Never Used Vaping Use Vaping Use: Never used Substance Use Topics Alcohol use: Yes Alcohol/week: 1.0 standard drink Types: 1 Cans of Beer (12oz) per week Drug use: No EXAM: BP 138/98 Pulse 68 Resp 18 Wt 121.7 kg (268 lb 6.4 oz) SpO2 98% BMI 44.66 kg/m PHYSICAL EXAM: General Appearance: Well appearing, alert, in no acute distress, well-hydrated, well nourished.. Skin: Skin color, texture, turgor normal, no suspicious rashes or lesions. Head: Normocephalic, no masses, lesions, tenderness or abnormalities. Eyes: Anicteric sclera. Pupils are equally round and reactive to light. Extraocular movements are intact. . Ears: External ears normal, canals clear, Normal TMs bilaterally. Oropharynx: Lips, mucosa, and tongue normal, teeth and gums normal, oropharynx normal. Neck: Supple, no adenopathy; thyroid symmetric, normal size, no bruits. Lungs: Lungs clear to auscultation. No wheezing, rhonchi, rales.. Heart: RRR without murmur, gallop, or rubs. No ectopy. Extremities: No deformities, edema, skin discoloration, clubbing or cyanosis. Good capillary refill. . Neurologic: Gait normal. Reflexes normal and symmetric. Reports sensation to light touch is different on the right face, Negative findings: speech normal, mental status intact, muscle tone normal, muscle strength normal, rapid alternating movements normal, finger to nose normal, reflexes normal and symmetric. ASSESSMENT/PLAN: 1. Facial numbness - ICD9: 782.0, ICD10: R20.0 (primary diagnosis) - US CAROTID ARTERIES NAE VAS LAB - VITAMIN B12 BLOOD - ECG COMPLETE Reports right sided facial and tongue numbness that has been happening intermittently. Currently with symptoms. Since he is currently having symptoms, suggest ER for further evaluation to r/o CVA/TIA. Patient agreeable to plan-- passport complete. Declines ambulance transport. 2. Elevated prolactin level - ICD9: 790.99, ICD10: R79.89 - PROLACTIN BLD - TESTOSTERONE, FREE AND TOTAL 3. Dizziness - ICD9: 780.4, ICD10: R42 - CBC + DIFF - COMP METABOLIC PANEL - TSH BLD - US CAROTID ARTERIES [facility] 4. Screening for hyperlipidemia - ICD9: V77.91, ICD10: Z13.220 - LIPID PANEL BASIC 5. Benign prostatic hyperplasia with lower urinary tract symptoms, symptom details unspecified - ICD9: 600.01, ICD10: N40.1 - PSA/PROSTSPECAG SCRN 6. Special screening examination for viral disease - ICD9: V73.99, ICD10: Z11.59 - HEP C AB IA W/CONF SCRN Discussed treatment plan and patient voices understanding. Patient's questions answered appropriately. Medications and potential side effects were discussed and patient voices understanding. Return to the office as scheduled or as needed for worsening/no improvement. Marita Moore APRN.ESDRAS The patient indicates understanding of these issues and agrees with the plan. documented in this encounterTrihealth [facility]04-25-2022 Hospital Discharge instructions Additional Instructions You need to take an aspirin a day. Take the blood pressure medicine you were prescribed once daily in the morning; you will urinate more for the first week or 2.[facility] Work Phone: [phone]) 543-226704-08-2022 History of Present illness Narrative* Hesham Koch APRN.ESDRAS - 02/04/2022 9:54 AM EDT Post-op Office Visit Vic Ballesteros 56 year old February 04, 2022 9:55 AM Surgery Date: 12/03/21 History: Vic Ballesteros Is now 8 weeks out from S/P Posterior based L JENNIFER. Post- operative course has beenwithout complication. No readmission/complications Subjective: Patient reports minimal pain. Overall is doing well. No ambulatory aid No opioid pain medication Objective: Ambulates with none Incision well healed Arcs of motion at hip are comfortable and fluid TTP over left ITB Distally DP/PT palpable Distally S/S/SP/DP/T intact at baseline Distally DF/EHL/PF intact at baseline Negative cathleen/calf tenderness Xrays: No new today Assessment and Plan: Vic Ballesteros Is here for a second post-op appointment, overall doing well -discussed home exercises and therapy - Continue WBAT on operative extremity -reinforced posterior precautions through 8 weeks: avoid extremes of flexion, internal rotation, and adduction -will see back at 1 year appointment for clinical exam and post-op xrays--can see earlier if needed -discussed red flag symptoms of acutely increasing pain, new erythema, new swelling, drainage, shortness of breath Hesham Koch APRN.CNP February 04, 2022 9:56 AM documented in this encounterTrihealth [facility]01-25-2022 History of Present illness Narrative* Desiree Dean RT(R) - 11/23/2021 3:15 PM EST Radiology Service Progress Note PATIENT NAME: Vic Ballesteros DATE OF SERVICE: November 23, 2021 TIME: 3:19 PM PATIENT IDENTITY VERIFICATION COMPLETED USING TWO (2) IDENTIFIERS: Name and Date of confirmedby patient verbally. FALL SCREENING: Has the patient had 2 falls in the last year or 1 fall with injury or currently using an Ambulatory Assistive Device (Walker, Cane, Wheelchair, Crutches, etc.)? No PATIENT GENDER DATA: Male PATIENT RELEVANT IMPLANT DATA REVIEWED: Not Applicable RADIOLOGY DEPARTMENT: General X-ray: Exam(s) Completed: Lower Extremity X- Ray(s): Knee, AP / Lat / Merchant Left and Wt. Bearing PERIPHERAL IV DATA: Not applicable SIGNED BY: RT Price(R) November 23, 2021 3:19 PM documented in this encounterTrihealth [facility]07-21-2021 History of Present illness Narrative* Chelsea Berumen RT(R) - 05/19/2021 12:20 PM EDT Radiology Service Progress Note PATIENT NAME: Vic Ballesteros DATE OF SERVICE: May 19, 2021 TIME: 12:29 PM PATIENT IDENTITY VERIFICATION COMPLETED USING TWO (2) IDENTIFIERS: Name and Date of confirmedby patient verbally. FALL SCREENING: Has the patient had 2 falls in the last year or 1 fall with injury or currently using an Ambulatory Assistive Device (Walker, Cane, Wheelchair, Crutches, etc.)? No PATIENT GENDER DATA: Male PATIENT RELEVANT IMPLANT DATA REVIEWED: Not Applicable RADIOLOGY DEPARTMENT: General X-ray: Exam(s) Completed: Upper Extremity X- Ray(s): Fingers/Thumb, right PERIPHERAL IV DATA: Not applicable SIGNED BY: RT Gema(R) May 19, 2021 12:29 PM documented in this encounterTrihealth [facility]10-02-2017 History of Past illness Narrative* Problem Noted Date Resolved Date RUQ pain 07/31/2017 08/23/2017 Overview: Added automatically from request for surgery [id number] Impotence of organic origin 05/01/201302/28 Unspecified constipation 04/17/2012 015 PAIN ABDOMEN( Left Lower Quadrant) 12/26/2008 04/15/2011 Hemorrhage of rectum and anus 12/26/2008 Benign neoplasm of skin of upper limb, including shoulder 11/13/2006 04/15/2011 Sebaceous cyst 10/13/2006 04/15/2011 FOLLICULITIS////HAIR DISEASES NEC 10/13/2006 04/15/2011 Neoplasm of uncertain behavior of skin 6 04/15/2011 SOLAR LENTIGENES///DYSCHROMIA OTHER 10/13/2006 04/15/2011 documented as of this encounter (statuses as of 02/04/2022) [facility] History of Past illness Narrative* Problem Noted Date Resolved Date RUQ pain 07/31/2017 08/23/2017 Overview: Added automatically from request for surgery [id number] Impotence of organic origin 05/01/201302/28 Unspecified constipation 04/17/2012 015 PAIN ABDOMEN( Left Lower Quadrant) 12/26/2008 04/15/2011 Hemorrhage of rectum and anus 12/26/2008 Benign neoplasm of skin of upper limb, including shoulder 11/13/2006 04/15/2011 Sebaceous cyst 10/13/2006 04/15/2011 FOLLICULITIS////HAIR DISEASES NEC 10/13/2006 04/15/2011 Neoplasm of uncertain behavior of skin 6 04/15/2011 SOLAR LENTIGENES///DYSCHROMIA OTHER 10/13/2006 04/15/2011 documented as of this encounter (statuses as of 02/21/2022) [facility] of Past illness Narrative* Problem Noted Date Resolved Date RUQ pain 07/31/2017 08/23/2017 Overview: Added automatically from request for surgery [id number] Impotence of organic origin 05/01/201302/28 Unspecified constipation 04/17/2012 015 PAIN ABDOMEN( Left Lower Quadrant) 12/26/2008 04/15/2011 Hemorrhage of rectum and anus 12/26/2008 Benign neoplasm of skin of upper limb, including shoulder 11/13/2006 04/15/2011 Sebaceous cyst 10/13/2006 04/15/2011 FOLLICULITIS////HAIR DISEASES NEC 10/13/2006 04/15/2011 Neoplasm of uncertain behavior of skin 6 04/15/2011 SOLAR LENTIGENES///DYSCHROMIA OTHER 10/13/2006 04/15/2011 documented as of this encounter (statuses as of 02/22/2022) [facility] of Past illness Narrative* Problem Noted Date Resolved Date RUQ pain 07/31/2017 08/23/2017 Overview: Added automatically from request for surgery [id number] Impotence of organic origin 05/01/201302/28 Unspecified constipation 04/17/2012 015 PAIN ABDOMEN( Left Lower Quadrant) 12/26/2008 04/15/2011 Hemorrhage of rectum and anus 12/26/2008 Benign neoplasm of skin of upper limb, including shoulder 11/13/2006 04/15/2011 Sebaceous cyst 10/13/2006 04/15/2011 FOLLICULITIS////HAIR DISEASES NEC 10/13/2006 04/15/2011 Neoplasm of uncertain behavior of skin 6 04/15/2011 SOLAR LENTIGENES///DYSCHROMIA OTHER 10/13/2006 04/15/2011 documented as of this encounter (statuses as of 02/25/2022) [facility] of [facility] illness Narrative* Problem Noted Date Resolved Date RUQ pain 07/31/2017 08/23/2017 Overview: Added automatically from request for surgery [id number] Impotence of organic origin 05/01/201302/28 Unspecified constipation 04/17/2012 015 PAIN ABDOMEN( Left Lower Quadrant) 12/26/2008 04/15/2011 Hemorrhage of rectum and anus 12/26/2008 Benign neoplasm of skin of upper limb, including shoulder 11/13/2006 04/15/2011 Sebaceous cyst 10/13/2006 04/15/2011 FOLLICULITIS////HAIR DISEASES NEC 10/13/2006 04/15/2011 Neoplasm of uncertain behavior of skin 6 04/15/2011 SOLAR LENTIGENES///DYSCHROMIA OTHER 10/13/2006 04/15/2011 documented as of this encounter (statuses as of 03/08/2022) [facility] of [facility] illness Narrative* Problem Noted Date Resolved Date RUQ pain 07/31/2017 08/23/2017 Overview: Added automatically from request for surgery [id number] Impotence of organic origin 05/01/201302/28 Unspecified constipation 04/17/2012 015 PAIN ABDOMEN( Left Lower Quadrant) 12/26/2008 04/15/2011 Hemorrhage of rectum and anus 12/26/2008 Benign neoplasm of skin of upper limb, including shoulder 11/13/2006 04/15/2011 Sebaceous cyst 10/13/2006 04/15/2011 FOLLICULITIS////HAIR DISEASES NEC 10/13/2006 04/15/2011 Neoplasm of uncertain behavior of skin 6 04/15/2011 SOLAR LENTIGENES///DYSCHROMIA OTHER 10/13/2006 04/15/2011 documented as of this encounter (statuses as of 03/29/2022) [facility] Narrative* Problem Noted Date Resolved Date RUQ pain 07/31/2017 08/23/2017 Overview: Added automatically from request for surgery [id number] Impotence of organic origin 05/01/201302/28 Unspecified constipation 04/17/2012 015 PAIN ABDOMEN( Left Lower Quadrant) 12/26/2008 04/15/2011 Hemorrhage of rectum and anus 12/26/2008 Benign neoplasm of skin of upper limb, including shoulder 11/13/2006 04/15/2011 Sebaceous cyst 10/13/2006 04/15/2011 FOLLICULITIS////HAIR DISEASES NEC 10/13/2006 04/15/2011 Neoplasm of uncertain behavior of skin 6 04/15/2011 SOLAR LENTIGENES///DYSCHROMIA OTHER 10/13/2006 04/15/2011 documented as of this encounter (statuses as of 04/13/2022) [facility] Narrative* Problem Noted Date Resolved Date RUQ pain 07/31/2017 08/23/2017 Overview: Added automatically from request for surgery [id number] Impotence of organic origin 05/01/201302/28 Unspecified constipation 04/17/2012 015 PAIN ABDOMEN( Left Lower Quadrant) 12/26/2008 04/15/2011 Hemorrhage of rectum and anus 12/26/2008 Benign neoplasm of skin of upper limb, including shoulder 11/13/2006 04/15/2011 Sebaceous cyst 10/13/2006 04/15/2011 FOLLICULITIS////HAIR DISEASES NEC 10/13/2006 04/15/2011 Neoplasm of uncertain behavior of skin 6 04/15/2011 SOLAR LENTIGENES///DYSCHROMIA OTHER 10/13/2006 04/15/2011 documented as of this encounter (statuses as of 04/27/2022) [facility] Narrative* Problem Noted Date Resolved Date RUQ pain 07/31/2017 08/23/2017 Overview: Added automatically from request for surgery [id number] Impotence of organic origin 05/01/201302/28 Unspecified constipation 04/17/2012 015 PAIN ABDOMEN( Left Lower Quadrant) 12/26/2008 04/15/2011 Hemorrhage of rectum and anus 12/26/2008 Benign neoplasm of skin of upper limb, including shoulder 11/13/2006 04/15/2011 Sebaceous cyst 10/13/2006 04/15/2011 FOLLICULITIS////HAIR DISEASES NEC 10/13/2006 04/15/2011 Neoplasm of uncertain behavior of skin 6 04/15/2011 SOLAR LENTIGENES///DYSCHROMIA OTHER 10/13/2006 04/15/2011 documented as of this encounter (statuses as of 05/10/2022) [facility] Narrative* Problem Noted Date Resolved Date RUQ pain 07/31/2017 08/23/2017 Overview: Added automatically from request for surgery [id number] Impotence of organic origin 05/01/201302/28 Unspecified constipation 04/17/2012 015 PAIN ABDOMEN( Left Lower Quadrant) 12/26/2008 04/15/2011 Hemorrhage of rectum and anus 12/26/2008 Benign neoplasm of skin of upper limb, including shoulder 11/13/2006 04/15/2011 Sebaceous cyst 10/13/2006 04/15/2011 FOLLICULITIS////HAIR DISEASES NEC 10/13/2006 04/15/2011 Neoplasm of uncertain behavior of skin 04/15/2011 SOLAR LENTIGENES///DYSCHROMIA OTHER 10/13/2006 04/15/2011 documented as of this encounter (statuses as of 05/11/2022) [facility] Narrative* Problem Noted Date Resolved Date RUQ pain 07/31/2017 08/23/2017 Overview: Added automatically from request for surgery [id number] Impotence of organic origin 05/01/201302/28 Unspecified constipation 04/17/2012 015 PAIN ABDOMEN( Left Lower Quadrant) 12/26/2008 04/15/2011 Hemorrhage of rectum and anus 12/26/2008 Benign neoplasm of skin of upper limb, including shoulder 11/13/2006 04/15/2011 Sebaceous cyst 10/13/2006 04/15/2011 FOLLICULITIS////HAIR DISEASES NEC 10/13/2006 04/15/2011 Neoplasm of uncertain behavior of skin 6 04/15/2011 SOLAR LENTIGENES///DYSCHROMIA OTHER 10/13/2006 04/15/2011 documented as of this encounter (statuses as of 06/24/2022) [facility] Narrative* Problem Noted Date Resolved Date RUQ pain 07/31/2017 08/23/2017 Overview: Added automatically from request for surgery [id number] Impotence of organic origin 05/01/201302/28 Unspecified constipation 04/17/2012 015 PAIN ABDOMEN( Left Lower Quadrant) 12/26/2008 04/15/2011 Hemorrhage of rectum and anus 12/26/2008 Benign neoplasm of skin of upper limb, including shoulder 11/13/2006 04/15/2011 Sebaceous cyst 10/13/2006 04/15/2011 FOLLICULITIS////HAIR DISEASES NEC 10/13/2006 04/15/2011 Neoplasm of uncertain behavior of skin 6 04/15/2011 SOLAR LENTIGENES///DYSCHROMIA OTHER 10/13/2006 04/15/2011 documented as of this encounter (statuses as of 06/27/2022) [facility] Narrative* Problem Noted Date Resolved Date RUQ pain 07/31/2017 08/23/2017 Overview: Added automatically from request for surgery [id number] Impotence of organic origin 05/01/201302/28 Unspecified constipation 04/17/2012 015 PAIN ABDOMEN( Left Lower Quadrant) 12/26/2008 04/15/2011 Hemorrhage of rectum and anus 12/26/2008 Benign neoplasm of skin of upper limb, including shoulder 11/13/2006 04/15/2011 Sebaceous cyst 10/13/2006 04/15/2011 FOLLICULITIS////HAIR DISEASES NEC 10/13/2006 04/15/2011 Neoplasm of uncertain behavior of skin 6 04/15/2011 SOLAR LENTIGENES///DYSCHROMIA OTHER 10/13/2006 04/15/2011 documented as of this encounter (statuses as of 07/12/2022) [facility] Narrative* Problem Noted Date Resolved Date RUQ pain 07/31/2017 08/23/2017 Overview: Added automatically from request for surgery [id number] Impotence of organic origin 05/01/201302/28 Unspecified constipation 04/17/2012 015 PAIN ABDOMEN( Left Lower Quadrant) 12/26/2008 04/15/2011 Hemorrhage of rectum and anus 12/26/2008 Benign neoplasm of skin of upper limb, including shoulder 11/13/2006 04/15/2011 Sebaceous cyst 10/13/2006 04/15/2011 FOLLICULITIS////HAIR DISEASES NEC 10/13/2006 04/15/2011 Neoplasm of uncertain behavior of skin 6 04/15/2011 SOLAR LENTIGENES///DYSCHROMIA OTHER 10/13/2006 04/15/2011 documented as of this encounter (statuses as of 07/21/2022) [facility] Narrative* Problem Noted Date Resolved Date RUQ pain 07/31/2017 08/23/2017 Overview: Added automatically from request for surgery [id number] Impotence of organic origin 05/01/201302/28 Unspecified constipation 04/17/2012 015 PAIN ABDOMEN( Left Lower Quadrant) 12/26/2008 04/15/2011 Hemorrhage of rectum and anus 12/26/2008 Benign neoplasm of skin of upper limb, including shoulder 11/13/2006 04/15/2011 Sebaceous cyst 10/13/2006 04/15/2011 FOLLICULITIS////HAIR DISEASES NEC 10/13/2006 04/15/2011 Neoplasm of uncertain behavior of skin 6 04/15/2011 SOLAR LENTIGENES///DYSCHROMIA OTHER 10/13/2006 04/15/2011 documented as of this encounter (statuses as of 08/04/2022) [facility] Narrative* Problem Noted Date Resolved Date RUQ pain 07/31/2017 08/23/2017 Overview: Added automatically from request for surgery [id number] Impotence of organic origin 05/01/201302/28 Unspecified constipation 04/17/2012 015 PAIN ABDOMEN( Left Lower Quadrant) 12/26/2008 04/15/2011 Hemorrhage of rectum and anus 12/26/2008 Benign neoplasm of skin of upper limb, including shoulder 11/13/2006 04/15/2011 Sebaceous cyst 10/13/2006 04/15/2011 FOLLICULITIS////HAIR DISEASES NEC 10/13/2006 04/15/2011 Neoplasm of uncertain behavior of skin 6 04/15/2011 SOLAR LENTIGENES///DYSCHROMIA OTHER 10/13/2006 04/15/2011 documented as of this encounter (statuses as of 08/05/2022) [facility] Narrative* Problem Noted Date Resolved Date RUQ pain 07/31/2017 08/23/2017 Overview: Added automatically from request for surgery [id number] Impotence of organic origin 05/01/201302/28 Unspecified constipation 04/17/2012 015 PAIN ABDOMEN( Left Lower Quadrant) 12/26/2008 04/15/2011 Hemorrhage of rectum and anus 12/26/2008 Benign neoplasm of skin of upper limb, including shoulder 11/13/2006 04/15/2011 Sebaceous cyst 10/13/2006 04/15/2011 FOLLICULITIS////HAIR DISEASES NEC 10/13/2006 04/15/2011 Neoplasm of uncertain behavior of skin 6 04/15/2011 SOLAR LENTIGENES///DYSCHROMIA OTHER 10/13/2006 04/15/2011 documented as of this encounter (statuses as of 09/08/2022) [facility] Narrative* Problem Noted Date Resolved Date RUQ pain 07/31/2017 08/23/2017 Overview: Added automatically from request for surgery [id number] Impotence of organic origin 05/01/201302/28 Unspecified constipation 04/17/2012 015 PAIN ABDOMEN( Left Lower Quadrant) 12/26/2008 04/15/2011 Hemorrhage of rectum and anus 12/26/2008 Benign neoplasm of skin of upper limb, including shoulder 11/13/2006 04/15/2011 Sebaceous cyst 10/13/2006 04/15/2011 FOLLICULITIS////HAIR DISEASES NEC 10/13/2006 04/15/2011 Neoplasm of uncertain behavior of skin 6 04/15/2011 SOLAR LENTIGENES///DYSCHROMIA OTHER 10/13/2006 04/15/2011 documented as of this encounter (statuses as of 09/13/2022) [facility] Narrative* Problem Noted Date Resolved Date RUQ pain 07/31/2017 08/23/2017 Overview: Added automatically from request for surgery [id number] Impotence of organic origin 05/01/201302/28 Unspecified constipation 04/17/2012 015 PAIN ABDOMEN( Left Lower Quadrant) 12/26/2008 04/15/2011 Hemorrhage of rectum and anus 12/26/2008 Benign neoplasm of skin of upper limb, including shoulder 11/13/2006 04/15/2011 Sebaceous cyst 10/13/2006 04/15/2011 FOLLICULITIS////HAIR DISEASES NEC 10/13/2006 04/15/2011 Neoplasm of uncertain behavior of skin 6 04/15/2011 SOLAR LENTIGENES///DYSCHROMIA OTHER 10/13/2006 04/15/2011 documented as of this encounter (statuses as of 09/14/2022) [facility] Narrative* Problem Noted Date Resolved Date RUQ pain 07/31/2017 08/23/2017 Overview: Added automatically from request for surgery [id number] Impotence of organic origin 05/01/201302/28 Unspecified constipation 04/17/2012 015 PAIN ABDOMEN( Left Lower Quadrant) 12/26/2008 04/15/2011 Hemorrhage of rectum and anus 12/26/2008 Benign neoplasm of skin of upper limb, including shoulder 11/13/2006 04/15/2011 Sebaceous cyst 10/13/2006 04/15/2011 FOLLICULITIS////HAIR DISEASES NEC 10/13/2006 04/15/2011 Neoplasm of uncertain behavior of skin 6 04/15/2011 SOLAR LENTIGENES///DYSCHROMIA OTHER 10/13/2006 04/15/2011 documented as of this encounter (statuses as of 09/20/2022) [facility] History of Past illness Narrative* Problem Noted Date Resolved Date RUQ pain 07/31/2017 08/23/2017 Overview: Added automatically from request for surgery [id number] Impotence of organic origin 05/01/201302/28 Unspecified constipation 04/17/2012 015 PAIN ABDOMEN( Left Lower Quadrant) 12/26/2008 04/15/2011 Hemorrhage of rectum and anus 12/26/2008 Benign neoplasm of skin of upper limb, including shoulder 11/13/2006 04/15/2011 Sebaceous cyst 10/13/2006 04/15/2011 FOLLICULITIS////HAIR DISEASES NEC 10/13/2006 04/15/2011 Neoplasm of uncertain behavior of skin 6 04/15/2011 SOLAR LENTIGENES///DYSCHROMIA OTHER 10/13/2006 04/15/2011 documented as of this encounter (statuses as of 09/26/2022) [facility] History of Past illness Narrative* Problem Noted Date Resolved Date RUQ pain 07/31/2017 08/23/2017 Overview: Added automatically from request for surgery [id number] Impotence of organic origin 05/01/201302/28 Unspecified constipation 04/17/2012 015 PAIN ABDOMEN( Left Lower Quadrant) 12/26/2008 04/15/2011 Hemorrhage of rectum and anus 12/26/2008 Benign neoplasm of skin of upper limb, including shoulder 11/13/2006 04/15/2011 Sebaceous cyst 10/13/2006 04/15/2011 FOLLICULITIS////HAIR DISEASES NEC 10/13/2006 04/15/2011 Neoplasm of uncertain behavior of skin 6 04/15/2011 SOLAR LENTIGENES///DYSCHROMIA OTHER 10/13/2006 04/15/2011 documented as of this encounter (statuses as of 11/02/2022) [facility] History of Past illness Narrative* Problem Noted Date Resolved Date RUQ pain 07/31/2017 08/23/2017 Overview: Added automatically from request for surgery [id number] Impotence of organic origin 05/01/201302/28 Unspecified constipation 04/17/2012 015 PAIN ABDOMEN( Left Lower Quadrant) 12/26/2008 04/15/2011 Hemorrhage of rectum and anus 12/26/2008 Benign neoplasm of skin of upper limb, including shoulder 11/13/2006 04/15/2011 Sebaceous cyst 10/13/2006 04/15/2011 FOLLICULITIS////HAIR DISEASES NEC 10/13/2006 04/15/2011 Neoplasm of uncertain behavior of skin 6 04/15/2011 SOLAR LENTIGENES///DYSCHROMIA OTHER 10/13/2006 04/15/2011 documented as of this encounter (statuses as of 11/28/2022) [facility] History of Past illness Narrative* Problem Noted Date Resolved Date RUQ pain 07/31/2017 08/23/2017 Overview: Added automatically from request for surgery [id number] Impotence of organic origin 05/01/201302/28 Unspecified constipation 04/17/2012 015 PAIN ABDOMEN( Left Lower Quadrant) 12/26/2008 04/15/2011 Hemorrhage of rectum and anus 12/26/2008 Benign neoplasm of skin of upper limb, including shoulder 11/13/2006 04/15/2011 Sebaceous cyst 10/13/2006 04/15/2011 FOLLICULITIS////HAIR DISEASES NEC 10/13/2006 04/15/2011 Neoplasm of uncertain behavior of skin 6 04/15/2011 SOLAR LENTIGENES///DYSCHROMIA OTHER 10/13/2006 04/15/2011 documented as of this encounter (statuses as of 12/13/2022) [facility] History of Past illness Narrative* Problem Noted Date Resolved Date RUQ pain 07/31/2017 08/23/2017 Overview: Added automatically from request for surgery [id number] Impotence of organic origin 05/01/201302/28 Unspecified constipation 04/17/2012 015 PAIN ABDOMEN( Left Lower Quadrant) 12/26/2008 04/15/2011 Hemorrhage of rectum and anus 12/26/2008 Benign neoplasm of skin of upper limb, including shoulder 11/13/2006 04/15/2011 Sebaceous cyst 10/13/2006 04/15/2011 FOLLICULITIS////HAIR DISEASES NEC 10/13/2006 04/15/2011 Neoplasm of uncertain behavior of skin 6 04/15/2011 SOLAR LENTIGENES///DYSCHROMIA OTHER 10/13/2006 04/15/2011 documented as of this encounter (statuses as of 12/14/2022) [facility] History of Past illness Narrative* Problem Noted Date Resolved Date RUQ pain 07/31/2017 08/23/2017 Overview: Added automatically from request for surgery [id number] Impotence of organic origin 05/01/201302/28 Unspecified constipation 04/17/2012 015 PAIN ABDOMEN( Left Lower Quadrant) 12/26/2008 04/15/2011 Hemorrhage of rectum and anus 12/26/2008 Benign neoplasm of skin of upper limb, including shoulder 11/13/2006 04/15/2011 Sebaceous cyst 10/13/2006 04/15/2011 FOLLICULITIS////HAIR DISEASES NEC 10/13/2006 04/15/2011 Neoplasm of uncertain behavior of skin 6 04/15/2011 SOLAR LENTIGENES///DYSCHROMIA OTHER 10/13/2006 04/15/2011 documented as of this encounter (statuses as of 12/16/2022) [facility] History of Past illness Narrative* Problem Noted Date Resolved Date RUQ pain 07/31/2017 08/23/2017 Overview: Added automatically from request for surgery [id number] Impotence of organic origin 05/01/201302/28 Unspecified constipation 04/17/2012 015 PAIN ABDOMEN( Left Lower Quadrant) 12/26/2008 04/15/2011 Hemorrhage of rectum and anus 12/26/2008 Benign neoplasm of skin of upper limb, including shoulder 11/13/2006 04/15/2011 Sebaceous cyst 10/13/2006 04/15/2011 FOLLICULITIS////HAIR DISEASES NEC 10/13/2006 04/15/2011 Neoplasm of uncertain behavior of skin 6 04/15/2011 SOLAR LENTIGENES///DYSCHROMIA OTHER 10/13/2006 04/15/2011 documented as of this encounter (statuses as of 01/10/2023) [facility] History of Past illness Narrative* Problem Noted Date Resolved Date RUQ pain 07/31/2017 08/23/2017 Overview: Added automatically from request for surgery [id number] Impotence of organic origin 05/01/201302/28 Unspecified constipation 04/17/2012 015 PAIN ABDOMEN( Left Lower Quadrant) 12/26/2008 04/15/2011 Hemorrhage of rectum and anus 12/26/2008 Benign neoplasm of skin of upper limb, including shoulder 11/13/2006 04/15/2011 Sebaceous cyst 10/13/2006 04/15/2011 FOLLICULITIS////HAIR DISEASES NEC 10/13/2006 04/15/2011 Neoplasm of uncertain behavior of skin 6 04/15/2011 SOLAR LENTIGENES///DYSCHROMIA OTHER 10/13/2006 04/15/2011 documented as of this encounter (statuses as of 01/16/2023) [facility] History of Past illness Narrative* Problem Noted Date Resolved Date RUQ pain 07/31/2017 08/23/2017 Overview: Added automatically from request for surgery [id number] Impotence of organic origin 05/01/201302/28 Unspecified constipation 04/17/2012 015 PAIN ABDOMEN( Left Lower Quadrant) 12/26/2008 04/15/2011 Hemorrhage of rectum and anus 12/26/2008 Benign neoplasm of skin of upper limb, including shoulder 11/13/2006 04/15/2011 Sebaceous cyst 10/13/2006 04/15/2011 FOLLICULITIS////HAIR DISEASES NEC 10/13/2006 04/15/2011 Neoplasm of uncertain behavior of skin 6 04/15/2011 SOLAR LENTIGENES///DYSCHROMIA OTHER 10/13/2006 04/15/2011 documented as of this encounter (statuses as of 01/19/2023) [facility] History of Past illness Narrative* Problem Noted Date Resolved Date RUQ pain 07/31/2017 08/23/2017 Overview: Added automatically from request for surgery [id number] Impotence of organic origin 05/01/201302/28 Unspecified constipation 04/17/2012 015 PAIN ABDOMEN( Left Lower Quadrant) 12/26/2008 04/15/2011 Hemorrhage of rectum and anus 12/26/2008 Benign neoplasm of skin of upper limb, including shoulder 11/13/2006 04/15/2011 Sebaceous cyst 10/13/2006 04/15/2011 FOLLICULITIS////HAIR DISEASES NEC 10/13/2006 04/15/2011 Neoplasm of uncertain behavior of skin 6 04/15/2011 SOLAR LENTIGENES///DYSCHROMIA OTHER 10/13/2006 04/15/2011 documented as of this encounter (statuses as of 02/21/2023) [facility] History of Past illness Narrative* Problem Noted Date Resolved Date RUQ pain 07/31/2017 08/23/2017 Overview: Added automatically from request for surgery [id number] Impotence of organic origin 05/01/201302/28 Unspecified constipation 04/17/2012 015 PAIN ABDOMEN( Left Lower Quadrant) 12/26/2008 04/15/2011 Hemorrhage of rectum and anus 12/26/2008 Benign neoplasm of skin of upper limb, including shoulder 11/13/2006 04/15/2011 Sebaceous cyst 10/13/2006 04/15/2011 FOLLICULITIS////HAIR DISEASES NEC 10/13/2006 04/15/2011 Neoplasm of uncertain behavior of skin 6 04/15/2011 SOLAR LENTIGENES///DYSCHROMIA OTHER 10/13/2006 04/15/2011 documented as of this encounter (statuses as of 04/24/2023) [facility] History of Past illness Narrative* Problem Noted Date Resolved Date RUQ pain 07/31/2017 08/23/2017 Overview: Added automatically from request for surgery [id number] Impotence of organic origin 05/01/201302/28 Unspecified constipation 04/17/2012 015 PAIN ABDOMEN( Left Lower Quadrant) 12/26/2008 04/15/2011 Hemorrhage of rectum and anus 12/26/2008 Benign neoplasm of skin of upper limb, including shoulder 11/13/2006 04/15/2011 Sebaceous cyst 10/13/2006 04/15/2011 FOLLICULITIS////HAIR DISEASES NEC 10/13/2006 04/15/2011 Neoplasm of uncertain behavior of skin 6 04/15/2011 SOLAR LENTIGENES///DYSCHROMIA OTHER 10/13/2006 04/15/2011 documented as of this encounter (statuses as of 04/27/2023) [facility] History of Past illness Narrative* Problem Noted Date Diagnosed Date Resolved Date RUQ pain 07/31/2017 08/23/2017 Overview: Added automatically from request for surgery [id number] Impotence of organic origin 05/01/2013 03/20/2017 Unspecified constipation 04/17/201205/2015 PAIN ABDOMEN( Left Lower Quadrant) 12/26/2008 04/15/2011 Hemorrhage of rectum and anus 12/26/2008 08/06/2015 Benign neoplasm of skin of u pper limb, including shoulder 11/13/2006 04/15/2011 Sebaceous cyst 10/13/2006 04/15/2011 FOLLICULITIS////HAIR DISEASES NEC 10/13/2006 04/15/2011 Neoplasm of uncertain behavior of skin 10/13/2006 04/15/2011 SOLAR LENTIGENES///DYSCHROMIA OTHER 10/13/2006 04/15/2011 documented as of this encounter (statuses as of 05/26/2023) [facility] History of Past illness Narrative* Problem Noted Date Diagnosed Date Resolved Date RUQ pain 07/31/2017 08/23/2017 Overview: Added automatically from request for surgery [id number] Impotence of organic origin 05/01/2013 03/20/2017 Unspecified constipation 04/17/201205/2015 PAIN ABDOMEN( Left Lower Quadrant) 12/26/2008 04/15/2011 Hemorrhage of rectum and anus 12/26/2008 08/06/2015 Benign neoplasm of skin of u pper limb, including shoulder 11/13/2006 04/15/2011 Sebaceous cyst 10/13/2006 04/15/2011 FOLLICULITIS////HAIR DISEASES NEC 10/13/2006 04/15/2011 Neoplasm of uncertain behavior of skin 10/13/2006 04/15/2011 SOLAR LENTIGENES///DYSCHROMIA OTHER 10/13/2006 04/15/2011 documented as of this encounter (statuses as of 06/08/2023) [facility] History of Past illness Narrative* Problem Noted Date Diagnosed Date Resolved Date RUQ pain 07/31/2017 08/23/2017 Overview: Added automatically from request for surgery [id number] Impotence of organic origin 05/01/2013 03/20/2017 Unspecified constipation 04/17/201205/2015 PAIN ABDOMEN( Left Lower Quadrant) 12/26/2008 04/15/2011 Hemorrhage of rectum and anus 12/26/2008 08/06/2015 Benign neoplasm of skin of u pper limb, including shoulder 11/13/2006 04/15/2011 Sebaceous cyst 10/13/2006 04/15/2011 FOLLICULITIS////HAIR DISEASES NEC 10/13/2006 04/15/2011 Neoplasm of uncertain behavior of skin 10/13/2006 04/15/2011 SOLAR LENTIGENES///DYSCHROMIA OTHER 10/13/2006 04/15/2011 documented as of this encounter (statuses as of 06/27/2023) [facility] History of Past illness Narrative* Problem Noted Date Diagnosed Date Resolved Date RUQ pain 07/31/2017 08/23/2017 Overview: Added automatically from request for surgery [id number] Impotence of organic origin 05/01/2013 03/20/2017 Unspecified constipation 04/17/201205/2015 PAIN ABDOMEN( Left Lower Quadrant) 12/26/2008 04/15/2011 Hemorrhage of rectum and anus 12/26/2008 08/06/2015 Benign neoplasm of skin of u pper limb, including shoulder 11/13/2006 04/15/2011 Sebaceous cyst 10/13/2006 04/15/2011 FOLLICULITIS////HAIR DISEASES NEC 10/13/2006 04/15/2011 Neoplasm of uncertain behavior of skin 10/13/2006 04/15/2011 SOLAR LENTIGENES///DYSCHROMIA OTHER 10/13/2006 04/15/2011 documented as of this encounter (statuses as of 07/17/2023) [facility] History of Past illness Narrative* Problem Noted Date Diagnosed Date Resolved Date RUQ pain 07/31/2017 08/23/2017 Overview: Added automatically from request for surgery [id number] Impotence of organic origin 05/01/2013 03/20/2017 Unspecified constipation 04/17/201205/2015 PAIN ABDOMEN( Left Lower Quadrant) 12/26/2008 04/15/2011 Hemorrhage of rectum and anus 12/26/2008 08/06/2015 Benign neoplasm of skin of u pper limb, including shoulder 11/13/2006 04/15/2011 Sebaceous cyst 10/13/2006 04/15/2011 FOLLICULITIS////HAIR DISEASES NEC 10/13/2006 04/15/2011 Neoplasm of uncertain behavior of skin 10/13/2006 04/15/2011 SOLAR LENTIGENES///DYSCHROMIA OTHER 10/13/2006 04/15/2011 documented as of this encounter (statuses as of 07/18/2023) [facility] History of Past illness Narrative* Problem Noted Date Diagnosed Date Resolved Date RUQ pain 07/31/2017 08/23/2017 Overview: Added automatically from request for surgery [id number] Impotence of organic origin 05/01/2013 03/20/2017 Unspecified constipation 04/17/201205/2015 PAIN ABDOMEN( Left Lower Quadrant) 12/26/2008 04/15/2011 Hemorrhage of rectum and anus 12/26/2008 08/06/2015 Benign neoplasm of skin of u pper limb, including shoulder 11/13/2006 04/15/2011 Sebaceous cyst 10/13/2006 04/15/2011 FOLLICULITIS////HAIR DISEASES NEC 10/13/2006 04/15/2011 Neoplasm of uncertain behavior of skin 10/13/2006 04/15/2011 SOLAR LENTIGENES///DYSCHROMIA OTHER 10/13/2006 04/15/2011 documented as of this encounter (statuses as of 07/20/2023) [facility] History of Past illness Narrative* Problem Noted Date Diagnosed Date Resolved Date RUQ pain 07/31/2017 08/23/2017 Overview: Added automatically from request for surgery [id number] Impotence of organic origin 05/01/2013 03/20/2017 Unspecified constipation 04/17/201205/2015 PAIN ABDOMEN( Left Lower Quadrant) 12/26/2008 04/15/2011 Hemorrhage of rectum and anus 12/26/2008 08/06/2015 Benign neoplasm of skin of u pper limb, including shoulder 11/13/2006 04/15/2011 Sebaceous cyst 10/13/2006 04/15/2011 FOLLICULITIS////HAIR DISEASES NEC 10/13/2006 04/15/2011 Neoplasm of uncertain behavior of skin 10/13/2006 04/15/2011 SOLAR LENTIGENES///DYSCHROMIA OTHER 10/13/2006 04/15/2011 documented as of this encounter (statuses as of 07/25/2023) [facility] History of Past illness Narrative* Problem Noted Date Diagnosed Date Resolved Date RUQ pain 07/31/2017 08/23/2017 Overview: Added automatically from request for surgery [id number] Impotence of organic origin 05/01/2013 03/20/2017 Unspecified constipation 04/17/201205/2015 PAIN ABDOMEN( Left Lower Quadrant) 12/26/2008 04/15/2011 Hemorrhage of rectum and anus 12/26/2008 08/06/2015 Benign neoplasm of skin of u pper limb, including shoulder 11/13/2006 04/15/2011 Sebaceous cyst 10/13/2006 04/15/2011 FOLLICULITIS////HAIR DISEASES NEC 10/13/2006 04/15/2011 Neoplasm of uncertain behavior of skin 10/13/2006 04/15/2011 SOLAR LENTIGENES///DYSCHROMIA OTHER 10/13/2006 04/15/2011 documented as of this encounter (statuses as of 09/20/2023) [facility] History of Past illness Narrative* Problem Noted Date Diagnosed Date Resolved Date RUQ pain 07/31/2017 08/23/2017 Overview: Added automatically from request for surgery [id number] Impotence of organic origin 05/01/2013 03/20/2017 Unspecified constipation 04/17/201205/2015 PAIN ABDOMEN( Left Lower Quadrant) 12/26/2008 04/15/2011 Hemorrhage of rectum and anus 12/26/2008 08/06/2015 Benign neoplasm of skin of u pper limb, including shoulder 11/13/2006 04/15/2011 Sebaceous cyst 10/13/2006 04/15/2011 FOLLICULITIS////HAIR DISEASES NEC 10/13/2006 04/15/2011 Neoplasm of uncertain behavior of skin 10/13/2006 04/15/2011 SOLAR LENTIGENES///DYSCHROMIA OTHER 10/13/2006 04/15/2011 documented as of this encounter (statuses as of 10/13/2023) [facility] note* Diagnosis Status post left hip replacement- Primary Hip joint replacement by other means [facility] [place] [facility]* Diagnosis Facial numbness- Primary Disturbance of skin sensation Elevated prolactin level Unspecified endocrine disorder Dizziness Dizziness and giddiness Screening for hyperlipidemia Screening for lipoid disorders Benign prostatic hyperplasia with lower urinary tract symptoms, symptom details unspecified Special screening examination for viral disease Special screening examination for unspecified viral disease [facility] [place] noteNo assessment information availableWMount Carmel [facility] Work Phone: Evaluation note* Diagnosis Recurrent major depressive disorder, remission status unspecified (HCC)- Primary Balance problem Other symptoms involving nervous and musculoskeletal systems Tinnitus, unspecified laterality [facility] in this encounter [facility] [place] [facility]* Diagnosis Actinic keratosis- Primary [facility] [place] [facility]* Diagnosis Primary hypertension- Primary Unspecified essential hypertension 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 Elevated prolactin level Unspecified endocrine disorder Screening for colon cancer Special screening for malignant neoplasms, colon Adjustment disorder with depressed mood AMANDA (obstructive sleep apnea) Obstructive sleep apnea (adult) (pediatric) Mixed hyperlipidemia [facility] Diagnosis Screening for colon cancer Special screening for malignant neoplasms, colon [facility] [place] [facility] Diagnosis Adjustment disorder with depressed mood [facility] Pain in left hip- Primary Pain in joint, pelvic region and thigh [facility] Diagnosis Psoas tendonitis of left side- Primary Status post left hip replacement Hip joint replacement by other means documented [facility] [place] [facility]* Diagnosis Pain in left hip Pain in joint, pelvic region and thigh [facility] [place] [facility]* Diagnosis Screen for colon cancer- Primary Special screening for malignant neoplasms, colon [facility] this encounter [facility] [place] [facility]* Diagnosis Mixed hyperlipidemia- Primary AMANDA (obstructive sleep apnea) Obstructive sleep apnea (adult) (pediatric) Elevated prolactin level Unspecified endocrine disorder Primary hypertension Unspecified essential hypertension GERD without esophagitis Esophageal reflux Adjustment disorder with depressed mood Recurrent acute serous otitis media of right ear Acute serous otitis media [facility] [place] [facility]* Diagnosis Primary hypertension Unspecified essential hypertension [facility] [place] [facility]* Diagnosis Sensorineural hearing loss (SNHL) of both ears- Primary Subjective tinnitus of both ears [facility] [place] [facility]* Diagnosis Pharyngeal dysphagia- Primary Dysphagia, pharyngeal phase documented [facility] this encounter [facility] [place] [facility]* Diagnosis Dysphagia, unspecified type- Primary Sensorineural hearing loss (SNHL) of both ears documented [facility] this encounter [facility] [place] [facility]* Diagnosis Pre-op evaluation- Primary Preoperative examination, unspecified Essential hypertension Unspecified essential hypertension Mixed hyperlipidemia Hepatitis C antibody positive in blood Gastroesophageal reflux disease, unspecified whether esophagitis present Depression, unspecified depression type Anxiety Anxiety state, unspecified AMANDA (obstructive sleep apnea) Obstructive sleep apnea (adult) (pediatric) Traumatic brain injury with loss of consciousness, subsequent encounter Morbid obesity (HCC) Morbid obesity [facility] [place] [facility]* Diagnosis Pharyngeal dysphagia Dysphagia, pharyngeal phase documented in this encounter [facility] [place] [facility]* Diagnosis Dysphagia, unspecified type- Primary [facility]* Diagnosis Need for vaccination- Primary Need for prophylactic vaccination and inoculation against unspecified single disease [facility] this [facility] [place] [facility]* Diagnosis Need for vaccination- Primary Need for prophylactic vaccination and inoculation against unspecified single disease [facility] this [facility] [place] [facility]* Diagnosis Need for vaccination- Primary Need for prophylactic vaccination and inoculation against unspecified single disease [facility] this [facility] [place] [facility]* Diagnosis Oropharyngeal dysphagia- Primary Dysphagia, oropharyngeal phase 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 Essential hypertension Unspecified essential hypertension Mixed hyperlipidemia AMANDA (obstructive sleep apnea) Obstructive sleep apnea (adult) (pediatric) DDD (degenerative disc disease), lumbar Degeneration of lumbar or lumbosacral intervertebral disc Depression, unspecified depression type Elevated prolactin level Unspecified endocrine disorder Screening for prostate cancer Special screening for malignant neoplasm of prostate [facility] [place] [facility]* Diagnosis Secondary male hypogonadism- Primary Other testicular hypofunction documented [facility] this encounter [facility] [place] [facility]* Diagnosis Impotence of organic origin- Primary 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 documented [facility] this [facility] [place] [facility]* Diagnosis AMANDA (obstructive sleep apnea)- Primary Obstructive sleep apnea (adult) (pediatric) documented in this encounter [facility] [place] [facility]* Diagnosis Essential hypertension- Primary Unspecified essential hypertension 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 Traumatic brain injury with loss of consciousness, subsequent encounter Mixed hyperlipidemia AMANDA (obstructive sleep apnea) Obstructive sleep apnea (adult) (pediatric) Gastroesophageal reflux disease, unspecified whether esophagitis present Right foot drop Other acquired deformity of ankle and foot Medication monitoring encounter Encounter for therapeutic drug monitoring Screening for prostate cancer Special screening for malignant neoplasm of prostate Need for vaccination Need for prophylactic vaccination and inoculation against unspecified single disease [facility] this [facility] [facility], [place] note* Diagnosis Pruritus- Primary Unspecified pruritic disorder [facility] [place] [facility] Diagnosis Soft tissue mass- Primary Disorders of soft tissue, unspecified Upper back pain [facility] [place] [facility]* Diagnosis Soft tissue mass Disorders of soft tissue, unspecified [facility] [place] [facility]* Diagnosis Soft tissue mass Disorders of soft tissue, unspecified Upper back pain [facility] [place] [facility]* Diagnosis Secondary male hypogonadism- Primary Other testicular hypofunction [facility] [place] [facility]* Diagnosis Proteinuria, unspecified type- Primary [facility] [place] [facility]* Diagnosis Proteinuria, unspecified type- Primary 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 [facility] [place] [facility]* Diagnosis Soft tissue mass Disorders of soft tissue, unspecified Upper back pain [facility] [place] [facility]* Diagnosis Proteinuria, unspecified type [facility] [place] [facility]* Diagnosis AMANDA (obstructive sleep apnea)- Primary Obstructive sleep apnea (adult) (pediatric) Vitamin D deficiency Unspecified vitamin D deficiency RLS (restless legs syndrome) Restless legs syndrome (RLS) Chronic insomnia Insomnia, unspecified Frequent nocturnal awakening Other sleep disturbances [facility] [place] [facility]* Diagnosis AMANDA (obstructive sleep apnea)- Primary Obstructive sleep apnea (adult) (pediatric) Dyslipidemia Other and unspecified hyperlipidemia Morbid obesity (HCC) Morbid obesity [facility] [place] [facility]* Diagnosis Secondary male hypogonadism- Primary Other testicular hypofunction [facility] [place] [facility]* Diagnosis Other specified disorders of kidney and ureter- Primary [facility] [place] [facility]* Diagnosis Other specified disorders of kidney and ureter [facility] [place] [facility]* Diagnosis Proteinuria, unspecified type- Primary Essential hypertension Unspecified essential hypertension Morbid obesity (HCC) Morbid obesity [facility] [place] [facility]* Diagnosis AMANDA (obstructive sleep apnea)- Primary Obstructive sleep apnea (adult) (pediatric) Chronic insomnia Insomnia, unspecified Depression, unspecified depression type [facility] [place] [facility]* Diagnosis 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 [facility] [place] [facility]* Diagnosis Proteinuria, unspecified type- Primary [facility] [place] [facility]* Diagnosis Essential hypertension- Primary Unspecified essential hypertension Mixed hyperlipidemia AMANDA (obstructive sleep apnea) Obstructive sleep apnea (adult) (pediatric) Gastroesophageal reflux disease, unspecified whether esophagitis present Traumatic brain injury with loss of consciousness, subsequent encounter Morbid obesity (HCC) Morbid obesity Anxiety Anxiety state, unspecified Fatty liver Other chronic nonalcoholic liver disease Medication monitoring encounter Encounter for therapeutic drug monitoring Hypogonadism in male Screening for prostate cancer Special screening for malignant neoplasm of prostate [facility] [place] [facility]* Diagnosis Pre-operative examination- Primary Preoperative examination, unspecified Primary osteoarthritis of left hip Primary localized osteoarthrosis, pelvic region and thigh AMANDA (obstructive sleep apnea) Obstructive sleep apnea (adult) (pediatric) Mixed hyperlipidemia Right foot drop Other acquired deformity of ankle and foot Adjustment disorder with depressed mood Traumatic brain injury with loss of consciousness, subsequent encounter DDD (degenerative disc disease), lumbar Degeneration of lumbar or lumbosacral intervertebral disc Morbid obesity (HCC) Morbid obesity History of palpitations Personal history of other diseases of circulatory system Pre-op evaluation- Primary Preoperative examination, unspecified Essential hypertension Unspecified essential hypertension Mixed hyperlipidemia Hepatitis C antibody positive in blood Gastroesophageal reflux disease, unspecified whether esophagitis present Depression, unspecified depression type Anxiety Anxiety state, unspecified AMANDA (obstructive sleep apnea) Obstructive sleep apnea (adult) (pediatric) Traumatic brain injury with loss of consciousness, subsequent encounter Morbid obesity (HCC) Morbid obesity Acute cough- Primary documented in this encounter [facility] note* Diagnosis Pre-operative examination- Primary Preoperative examination, unspecified Primary osteoarthritis of left hip Primary localized osteoarthrosis, pelvic region and thigh AMANDA (obstructive sleep apnea) Obstructive sleep apnea (adult) (pediatric) Mixed hyperlipidemia Right foot drop Other acquired deformity of ankle and foot Adjustment disorder with depressed mood Traumatic brain injury with loss of consciousness, subsequent encounter DDD (degenerative disc disease), lumbar Degeneration of lumbar or lumbosacral intervertebral disc Morbid obesity (HCC) Morbid obesity History of palpitations Personal history of other diseases of circulatory system Pre-op evaluation- Primary Preoperative examination, unspecified Essential hypertension Unspecified essential hypertension Mixed hyperlipidemia Hepatitis C antibody positive in blood Gastroesophageal reflux disease, unspecified whether esophagitis present Depression, unspecified depression type Anxiety Anxiety state, unspecified AMANDA (obstructive sleep apnea) Obstructive sleep apnea (adult) (pediatric) Traumatic brain injury with loss of consciousness, subsequent encounter Morbid obesity (HCC) Morbid obesity Upper respiratory infection, acute- Primary Acute upper respiratory infections of unspecified site documented in this encounter [facility] note* Diagnosis Pre-operative examination- Primary Preoperative examination, unspecified Primary osteoarthritis of left hip Primary localized osteoarthrosis, pelvic region and thigh AMANDA (obstructive sleep apnea) Obstructive sleep apnea (adult) (pediatric) Mixed hyperlipidemia Right foot drop Other acquired deformity of ankle and foot Adjustment disorder with depressed mood Traumatic brain injury with loss of consciousness, subsequent encounter DDD (degenerative disc disease), lumbar Degeneration of lumbar or lumbosacral intervertebral disc Morbid obesity (HCC) Morbid obesity History of palpitations Personal history of other diseases of circulatory system Pre-op evaluation- Primary Preoperative examination, unspecified Essential hypertension Unspecified essential hypertension Mixed hyperlipidemia Hepatitis C antibody positive in blood Gastroesophageal reflux disease, unspecified whether esophagitis present Depression, unspecified depression type Anxiety Anxiety state, unspecified AMANDA (obstructive sleep apnea) Obstructive sleep apnea (adult) (pediatric) Traumatic brain injury with loss of consciousness, subsequent encounter Morbid obesity (HCC) Morbid obesity Cough, unspecified type- Primary Cough, unspecified type [facility] [place] [facility]* Diagnosis Pre-operative examination- Primary Preoperative examination, unspecified Primary osteoarthritis of left hip Primary localized osteoarthrosis, pelvic region and thigh AMANDA (obstructive sleep apnea) Obstructive sleep apnea (adult) (pediatric) Mixed hyperlipidemia Right foot drop Other acquired deformity of ankle and foot Adjustment disorder with depressed mood Traumatic brain injury with loss of consciousness, subsequent encounter DDD (degenerative disc disease), lumbar Degeneration of lumbar or lumbosacral intervertebral disc Morbid obesity (HCC) Morbid obesity History of palpitations Personal history of other diseases of circulatory system Pre-op evaluation- Primary Preoperative examination, unspecified Essential hypertension Unspecified essential hypertension Mixed hyperlipidemia Hepatitis C antibody positive in blood Gastroesophageal reflux disease, unspecified whether esophagitis present Depression, unspecified depression type Anxiety Anxiety state, unspecified AMANDA (obstructive sleep apnea) Obstructive sleep apnea (adult) (pediatric) Traumatic brain injury with loss of consciousness, subsequent encounter Morbid obesity (HCC) Morbid obesity Cough, unspecified type [facility] [place] [facility]* Diagnosis Pre-operative examination- Primary Preoperative examination, unspecified Primary osteoarthritis of left hip Primary localized osteoarthrosis, pelvic region and thigh AMANDA (obstructive sleep apnea) Obstructive sleep apnea (adult) (pediatric) Mixed hyperlipidemia Right foot drop Other acquired deformity of ankle and foot Adjustment disorder with depressed mood Traumatic brain injury with loss of consciousness, subsequent encounter DDD (degenerative disc disease), lumbar Degeneration of lumbar or lumbosacral intervertebral disc Morbid obesity (HCC) Morbid obesity History of palpitations Personal history of other diseases of circulatory system Pre-op evaluation- Primary Preoperative examination, unspecified Essential hypertension Unspecified essential hypertension Mixed hyperlipidemia Hepatitis C antibody positive in blood Gastroesophageal reflux disease, unspecified whether esophagitis present Depression, unspecified depression type Anxiety Anxiety state, unspecified AMANDA (obstructive sleep apnea) Obstructive sleep apnea (adult) (pediatric) Traumatic brain injury with loss of consciousness, subsequent encounter Morbid obesity (HCC) Morbid obesity Bronchitis- Primary Bronchitis, not specified as acute or chronic Acute cough Acute cough [facility] [place] [facility]* Diagnosis Pre-operative examination- Primary Preoperative examination, unspecified Primary osteoarthritis of left hip Primary localized osteoarthrosis, pelvic region and thigh AMANDA (obstructive sleep apnea) Obstructive sleep apnea (adult) (pediatric) Mixed hyperlipidemia Right foot drop Other acquired deformity of ankle and foot Adjustment disorder with depressed mood Traumatic brain injury with loss of consciousness, subsequent encounter DDD (degenerative disc disease), lumbar Degeneration of lumbar or lumbosacral intervertebral disc Morbid obesity (HCC) Morbid obesity History of palpitations Personal history of other diseases of circulatory system Pre-op evaluation- Primary Preoperative examination, unspecified Essential hypertension Unspecified essential hypertension Mixed hyperlipidemia Hepatitis C antibody positive in blood Gastroesophageal reflux disease, unspecified whether esophagitis present Depression, unspecified depression type Anxiety Anxiety state, unspecified AMANDA (obstructive sleep apnea) Obstructive sleep apnea (adult) (pediatric) Traumatic brain injury with loss of consciousness, subsequent encounter Morbid obesity (HCC) Morbid obesity Acute cough [facility] [place] [facility]* Diagnosis Pre-operative examination- Primary Preoperative examination, unspecified Primary osteoarthritis of left hip Primary localized osteoarthrosis, pelvic region and thigh AMANDA (obstructive sleep apnea) Obstructive sleep apnea (adult) (pediatric) Mixed hyperlipidemia Right foot drop Other acquired deformity of ankle and foot Adjustment disorder with depressed mood Traumatic brain injury with loss of consciousness, subsequent encounter DDD (degenerative disc disease), lumbar Degeneration of lumbar or lumbosacral intervertebral disc Morbid obesity (HCC) Morbid obesity History of palpitations Personal history of other diseases of circulatory system Pre-op evaluation- Primary Preoperative examination, unspecified Essential hypertension Unspecified essential hypertension Mixed hyperlipidemia Hepatitis C antibody positive in blood Gastroesophageal reflux disease, unspecified whether esophagitis present Depression, unspecified depression type Anxiety Anxiety state, unspecified AMANDA (obstructive sleep apnea) Obstructive sleep apnea (adult) (pediatric) Traumatic brain injury with loss of consciousness, subsequent encounter Morbid obesity (HCC) Morbid obesity COVID-19- Primary Acute respiratory failure with hypoxia (HCC) Acute respiratory failure [facility] [place] [facility]* Diagnosis Pre-operative examination- Primary Preoperative examination, unspecified Primary osteoarthritis of left hip Primary localized osteoarthrosis, pelvic region and thigh AMANDA (obstructive sleep apnea) Obstructive sleep apnea (adult) (pediatric) Mixed hyperlipidemia Right foot drop Other acquired deformity of ankle and foot Adjustment disorder with depressed mood Traumatic brain injury with loss of consciousness, subsequent encounter DDD (degenerative disc disease), lumbar Degeneration of lumbar or lumbosacral intervertebral disc Morbid obesity (HCC) Morbid obesity History of palpitations Personal history of other diseases of circulatory system Neck pain Cervicalgia Pre-op evaluation- Primary Preoperative examination, unspecified Essential hypertension Unspecified essential hypertension Mixed hyperlipidemia Hepatitis C antibody positive in blood Gastroesophageal reflux disease, unspecified whether esophagitis present Depression, unspecified depression type Anxiety Anxiety state, unspecified AMANDA (obstructive sleep apnea) Obstructive sleep apnea (adult) (pediatric) Traumatic brain injury with loss of consciousness, subsequent encounter Morbid obesity (HCC) Morbid obesity documented in this encounter [facility] note* Diagnosis Pre-operative examination- Primary Preoperative examination, unspecified Primary osteoarthritis of left hip Primary localized osteoarthrosis, pelvic region and thigh AMANDA (obstructive sleep apnea) Obstructive sleep apnea (adult) (pediatric) Mixed hyperlipidemia Right foot drop Other acquired deformity of ankle and foot Adjustment disorder with depressed mood Traumatic brain injury with loss of consciousness, subsequent encounter DDD (degenerative disc disease), lumbar Degeneration of lumbar or lumbosacral intervertebral disc Morbid obesity (HCC) Morbid obesity History of palpitations Personal history of other diseases of circulatory system Post-traumatic osteoarthritis of left hip Secondary localized osteoarthrosis, pelvic region and thigh Pre-op evaluation- Primary Preoperative examination, unspecified Essential hypertension Unspecified essential hypertension Mixed hyperlipidemia Hepatitis C antibody positive in blood Gastroesophageal reflux disease, unspecified whether esophagitis present Depression, unspecified depression type Anxiety Anxiety state, unspecified AMANDA (obstructive sleep apnea) Obstructive sleep apnea (adult) (pediatric) Traumatic brain injury with loss of consciousness, subsequent encounter Morbid obesity (HCC) Morbid obesity documented in this encounter [facility] note* Diagnosis Pre-operative examination- Primary Preoperative examination, unspecified Primary osteoarthritis of left hip Primary localized osteoarthrosis, pelvic region and thigh AMANDA (obstructive sleep apnea) Obstructive sleep apnea (adult) (pediatric) Mixed hyperlipidemia Right foot drop Other acquired deformity of ankle and foot Adjustment disorder with depressed mood Traumatic brain injury with loss of consciousness, subsequent encounter DDD (degenerative disc disease), lumbar Degeneration of lumbar or lumbosacral intervertebral disc Morbid obesity (HCC) Morbid obesity History of palpitations Personal history of other diseases of circulatory system Pre-op evaluation- Primary Preoperative examination, unspecified Essential hypertension Unspecified essential hypertension Mixed hyperlipidemia Hepatitis C antibody positive in blood Gastroesophageal reflux disease, unspecified whether esophagitis present Depression, unspecified depression type Anxiety Anxiety state, unspecified AMANDA (obstructive sleep apnea) Obstructive sleep apnea (adult) (pediatric) Traumatic brain injury with loss of consciousness, subsequent encounter Morbid obesity (HCC) Morbid obesity COVID-19 Acute respiratory failure with hypoxia (HCC) Acute respiratory failure [facility] Diagnosis Sutured skin wound Pre-operative examination- Primary Preoperative examination, unspecified Primary osteoarthritis of left hip Primary localized osteoarthrosis, pelvic region and thigh AMANDA (obstructive sleep apnea) Obstructive sleep apnea (adult) (pediatric) Mixed hyperlipidemia Right foot drop Other acquired deformity of ankle and foot Adjustment disorder with depressed mood Traumatic brain injury with loss of consciousness, subsequent encounter DDD (degenerative disc disease), lumbar Degeneration of lumbar or lumbosacral intervertebral disc Morbid obesity (HCC) Morbid obesity History of palpitations Personal history of other diseases of circulatory system Pre-op evaluation- Primary Preoperative examination, unspecified Essential hypertension Unspecified essential hypertension Mixed hyperlipidemia Hepatitis C antibody positive in blood Gastroesophageal reflux disease, unspecified whether esophagitis present Depression, unspecified depression type Anxiety Anxiety state, unspecified AMANDA (obstructive sleep apnea) Obstructive sleep apnea (adult) (pediatric) Traumatic brain injury with loss of consciousness, subsequent encounter Morbid obesity (HCC) Morbid obesity [facility] [place] [facility]* Diagnosis Pre-operative examination- Primary Preoperative examination, unspecified Primary osteoarthritis of left hip Primary localized osteoarthrosis, pelvic region and thigh AMANDA (obstructive sleep apnea) Obstructive sleep apnea (adult) (pediatric) Mixed hyperlipidemia Right foot drop Other acquired deformity of ankle and foot Adjustment disorder with depressed mood Traumatic brain injury with loss of consciousness, subsequent encounter DDD (degenerative disc disease), lumbar Degeneration of lumbar or lumbosacral intervertebral disc Morbid obesity (HCC) Morbid obesity History of palpitations Personal history of other diseases of circulatory system Pre-op evaluation- Primary Preoperative examination, unspecified Essential hypertension Unspecified essential hypertension Mixed hyperlipidemia Hepatitis C antibody positive in blood Gastroesophageal reflux disease, unspecified whether esophagitis present Depression, unspecified depression type Anxiety Anxiety state, unspecified AMANDA (obstructive sleep apnea) Obstructive sleep apnea (adult) (pediatric) Traumatic brain injury with loss of consciousness, subsequent encounter Morbid obesity (HCC) Morbid obesity Moderate persistent reactive airway disease with wheezing without complication- Primary Mononeuritis of lower extremity, unspecified laterality [facility] [place] [facility]* Diagnosis Pre-operative examination- Primary Preoperative examination, unspecified Primary osteoarthritis of left hip Primary localized osteoarthrosis, pelvic region and thigh AMANDA (obstructive sleep apnea) Obstructive sleep apnea (adult) (pediatric) Mixed hyperlipidemia Right foot drop Other acquired deformity of ankle and foot Adjustment disorder with depressed mood Traumatic brain injury with loss of consciousness, subsequent encounter DDD (degenerative disc disease), lumbar Degeneration of lumbar or lumbosacral intervertebral disc Morbid obesity (HCC) Morbid obesity History of palpitations Personal history of other diseases of circulatory system Pre-op evaluation- Primary Preoperative examination, unspecified Essential hypertension Unspecified essential hypertension Mixed hyperlipidemia Hepatitis C antibody positive in blood Gastroesophageal reflux disease, unspecified whether esophagitis present Depression, unspecified depression type Anxiety Anxiety state, unspecified AMANDA (obstructive sleep apnea) Obstructive sleep apnea (adult) (pediatric) Traumatic brain injury with loss of consciousness, subsequent encounter Morbid obesity (HCC) Morbid obesity 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 [facility] [place] [facility]* Diagnosis Pre-operative examination- Primary Preoperative examination, unspecified Primary osteoarthritis of left hip Primary localized osteoarthrosis, pelvic region and thigh AMANDA (obstructive sleep apnea) Obstructive sleep apnea (adult) (pediatric) Mixed hyperlipidemia Right foot drop Other acquired deformity of ankle and foot Adjustment disorder with depressed mood Traumatic brain injury with loss of consciousness, subsequent encounter DDD (degenerative disc disease), lumbar Degeneration of lumbar or lumbosacral intervertebral disc Morbid obesity (HCC) Morbid obesity History of palpitations Personal history of other diseases of circulatory system Pre-op evaluation- Primary Preoperative examination, unspecified Essential hypertension Unspecified essential hypertension Mixed hyperlipidemia Hepatitis C antibody positive in blood Gastroesophageal reflux disease, unspecified whether esophagitis present Depression, unspecified depression type Anxiety Anxiety state, unspecified AMANDA (obstructive sleep apnea) Obstructive sleep apnea (adult) (pediatric) Traumatic brain injury with loss of consciousness, subsequent encounter Morbid obesity (HCC) Morbid obesity Moderate persistent reactive airway disease with wheezing without complication documented in this encounter [facility] note* Diagnosis Pre-operative examination- Primary Preoperative examination, unspecified Primary osteoarthritis of left hip Primary localized osteoarthrosis, pelvic region and thigh AMANDA (obstructive sleep apnea) Obstructive sleep apnea (adult) (pediatric) Mixed hyperlipidemia Right foot drop Other acquired deformity of ankle and foot Adjustment disorder with depressed mood Traumatic brain injury with loss of consciousness, subsequent encounter DDD (degenerative disc disease), lumbar Degeneration of lumbar or lumbosacral intervertebral disc Morbid obesity (HCC) Morbid obesity History of palpitations Personal history of other diseases of circulatory system Pre-op evaluation- Primary Preoperative examination, unspecified Essential hypertension Unspecified essential hypertension Mixed hyperlipidemia Hepatitis C antibody positive in blood Gastroesophageal reflux disease, unspecified whether esophagitis present Depression, unspecified depression type Anxiety Anxiety state, unspecified AMANDA (obstructive sleep apnea) Obstructive sleep apnea (adult) (pediatric) Traumatic brain injury with loss of consciousness, subsequent encounter Morbid obesity (HCC) Morbid obesity 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 documented in this encounter [facility] note* Diagnosis Pre-operative examination- Primary Preoperative examination, unspecified Primary osteoarthritis of left hip Primary localized osteoarthrosis, pelvic region and thigh AMANDA (obstructive sleep apnea) Obstructive sleep apnea (adult) (pediatric) Mixed hyperlipidemia Right foot drop Other acquired deformity of ankle and foot Adjustment disorder with depressed mood Traumatic brain injury with loss of consciousness, subsequent encounter DDD (degenerative disc disease), lumbar Degeneration of lumbar or lumbosacral intervertebral disc Morbid obesity (HCC) Morbid obesity History of palpitations Personal history of other diseases of circulatory system Pre-op evaluation- Primary Preoperative examination, unspecified Essential hypertension Unspecified essential hypertension Mixed hyperlipidemia Hepatitis C antibody positive in blood Gastroesophageal reflux disease, unspecified whether esophagitis present Depression, unspecified depression type Anxiety Anxiety state, unspecified AMANDA (obstructive sleep apnea) Obstructive sleep apnea (adult) (pediatric) Traumatic brain injury with loss of consciousness, subsequent encounter Morbid obesity (HCC) Morbid obesity 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 documented in this encounter [facility] note* Diagnosis Pre-operative examination- Primary Preoperative examination, unspecified Primary osteoarthritis of left hip Primary localized osteoarthrosis, pelvic region and thigh AMANDA (obstructive sleep apnea) Obstructive sleep apnea (adult) (pediatric) Mixed hyperlipidemia Right foot drop Other acquired deformity of ankle and foot Adjustment disorder with depressed mood Traumatic brain injury with loss of consciousness, subsequent encounter DDD (degenerative disc disease), lumbar Degeneration of lumbar or lumbosacral intervertebral disc Morbid obesity (HCC) Morbid obesity History of palpitations Personal history of other diseases of circulatory system Pre-op evaluation- Primary Preoperative examination, unspecified Essential hypertension Unspecified essential hypertension Mixed hyperlipidemia Hepatitis C antibody positive in blood Gastroesophageal reflux disease, unspecified whether esophagitis present Depression, unspecified depression type Anxiety Anxiety state, unspecified AMANDA (obstructive sleep apnea) Obstructive sleep apnea (adult) (pediatric) Traumatic brain injury with loss of consciousness, subsequent encounter Morbid obesity (HCC) Morbid obesity Cough, unspecified type documented in this encounter [facility] note* Diagnosis Pre-operative examination- Primary Preoperative examination, unspecified Primary osteoarthritis of left hip Primary localized osteoarthrosis, pelvic region and thigh AMANDA (obstructive sleep apnea) Obstructive sleep apnea (adult) (pediatric) Mixed hyperlipidemia Right foot drop Other acquired deformity of ankle and foot Adjustment disorder with depressed mood Traumatic brain injury with loss of consciousness, subsequent encounter DDD (degenerative disc disease), lumbar Degeneration of lumbar or lumbosacral intervertebral disc Morbid obesity (HCC) Morbid obesity History of palpitations Personal history of other diseases of circulatory system Pre-op evaluation- Primary Preoperative examination, unspecified Essential hypertension Unspecified essential hypertension Mixed hyperlipidemia Hepatitis C antibody positive in blood Gastroesophageal reflux disease, unspecified whether esophagitis present Depression, unspecified depression type Anxiety Anxiety state, unspecified AMANDA (obstructive sleep apnea) Obstructive sleep apnea (adult) (pediatric) Traumatic brain injury with loss of consciousness, subsequent encounter Morbid obesity (HCC) Morbid obesity Coronary artery calcification- Primary Coronary atherosclerosis of unspecified type of vessel, [place] or graft [facility] [place] [facility] Diagnosis Pre-operative examination- Primary Preoperative examination, unspecified Primary osteoarthritis of left hip Primary localized osteoarthrosis, pelvic region and thigh AMANDA (obstructive sleep apnea) Obstructive sleep apnea (adult) (pediatric) Mixed hyperlipidemia Right foot drop Other acquired deformity of ankle and foot Adjustment disorder with depressed mood Traumatic brain injury with loss of consciousness, subsequent encounter DDD (degenerative disc disease), lumbar Degeneration of lumbar or lumbosacral intervertebral disc Morbid obesity (HCC) Morbid obesity History of palpitations Personal history of other diseases of circulatory system Pre-op evaluation- Primary Preoperative examination, unspecified Essential hypertension Unspecified essential hypertension Mixed hyperlipidemia Hepatitis C antibody positive in blood Gastroesophageal reflux disease, unspecified whether esophagitis present Depression, unspecified depression type Anxiety Anxiety state, unspecified AMANDA (obstructive sleep apnea) Obstructive sleep apnea (adult) (pediatric) Traumatic brain injury with loss of consciousness, subsequent encounter Morbid obesity (HCC) Morbid obesity Post-COVID chronic cough- Primary Gastroesophageal reflux disease, unspecified whether esophagitis present Morbid obesity (HCC) Morbid obesity Lung nodule Solitary pulmonary nodule Cough, unspecified type [facility] [place] [facility] Diagnosis Pre-operative examination- Primary Preoperative examination, unspecified Primary osteoarthritis of left hip Primary localized osteoarthrosis, pelvic region and thigh AMANDA (obstructive sleep apnea) Obstructive sleep apnea (adult) (pediatric) Mixed hyperlipidemia Right foot drop Other acquired deformity of ankle and foot Adjustment disorder with depressed mood Traumatic brain injury with loss of consciousness, subsequent encounter DDD (degenerative disc disease), lumbar Degeneration of lumbar or lumbosacral intervertebral disc Morbid obesity (HCC) Morbid obesity History of palpitations Personal history of other diseases of circulatory system Pre-op evaluation- Primary Preoperative examination, unspecified Essential hypertension Unspecified essential hypertension Mixed hyperlipidemia Hepatitis C antibody positive in blood Gastroesophageal reflux disease, unspecified whether esophagitis present Depression, unspecified depression type Anxiety Anxiety state, unspecified AMANDA (obstructive sleep apnea) Obstructive sleep apnea (adult) (pediatric) Traumatic brain injury with loss of consciousness, subsequent encounter Morbid obesity (HCC) Morbid obesity Coronary artery calcification- Primary Coronary atherosclerosis of unspecified type of vessel, [place] or graft Other chest pain HTN (hypertension), benign Essential hypertension, benign [facility] [place] [facility] Diagnosis Pre-operative examination- Primary Preoperative examination, unspecified Primary osteoarthritis of left hip Primary localized osteoarthrosis, pelvic region and thigh AMANDA (obstructive sleep apnea) Obstructive sleep apnea (adult) (pediatric) Mixed hyperlipidemia Right foot drop Other acquired deformity of ankle and foot Adjustment disorder with depressed mood Traumatic brain injury with loss of consciousness, subsequent encounter DDD (degenerative disc disease), lumbar Degeneration of lumbar or lumbosacral intervertebral disc Morbid obesity (HCC) Morbid obesity History of palpitations Personal history of other diseases of circulatory system Pre-op evaluation- Primary Preoperative examination, unspecified Essential hypertension Unspecified essential hypertension Mixed hyperlipidemia Hepatitis C antibody positive in blood Gastroesophageal reflux disease, unspecified whether esophagitis present Depression, unspecified depression type Anxiety Anxiety state, unspecified AMANDA (obstructive sleep apnea) Obstructive sleep apnea (adult) (pediatric) Traumatic brain injury with loss of consciousness, subsequent encounter Morbid obesity (HCC) Morbid obesity Coronary artery calcification- Primary Coronary atherosclerosis of unspecified type of vessel, [place] or graft [facility] [place] [facility] Diagnosis Pre-operative examination- Primary Preoperative examination, unspecified Primary osteoarthritis of left hip Primary localized osteoarthrosis, pelvic region and thigh AMANDA (obstructive sleep apnea) Obstructive sleep apnea (adult) (pediatric) Mixed hyperlipidemia Right foot drop Other acquired deformity of ankle and foot Adjustment disorder with depressed mood Traumatic brain injury with loss of consciousness, subsequent encounter DDD (degenerative disc disease), lumbar Degeneration of lumbar or lumbosacral intervertebral disc Morbid obesity (HCC) Morbid obesity History of palpitations Personal history of other diseases of circulatory system Pre-op evaluation- Primary Preoperative examination, unspecified Essential hypertension Unspecified essential hypertension Mixed hyperlipidemia Hepatitis C antibody positive in blood Gastroesophageal reflux disease, unspecified whether esophagitis present Depression, unspecified depression type Anxiety Anxiety state, unspecified AMANDA (obstructive sleep apnea) Obstructive sleep apnea (adult) (pediatric) Traumatic brain injury with loss of consciousness, subsequent encounter Morbid obesity (HCC) Morbid obesity Coronary artery calcification Coronary atherosclerosis of unspecified type of vessel, [place] or graft Other chest pain Coronary artery calcification- Primary Coronary atherosclerosis of unspecified type of vessel, [place] or graft [facility] [place] [facility]* Diagnosis Pre-operative examination- Primary Preoperative examination, unspecified Primary osteoarthritis of left hip Primary localized osteoarthrosis, pelvic region and thigh AMANDA (obstructive sleep apnea) Obstructive sleep apnea (adult) (pediatric) Mixed hyperlipidemia Right foot drop Other acquired deformity of ankle and foot Adjustment disorder with depressed mood Traumatic brain injury with loss of consciousness, subsequent encounter DDD (degenerative disc disease), lumbar Degeneration of lumbar or lumbosacral intervertebral disc Morbid obesity (HCC) Morbid obesity History of palpitations Personal history of other diseases of circulatory system Pre-op evaluation- Primary Preoperative examination, unspecified Essential hypertension Unspecified essential hypertension Mixed hyperlipidemia Hepatitis C antibody positive in blood Gastroesophageal reflux disease, unspecified whether esophagitis present Depression, unspecified depression type Anxiety Anxiety state, unspecified AMANDA (obstructive sleep apnea) Obstructive sleep apnea (adult) (pediatric) Traumatic brain injury with loss of consciousness, subsequent encounter Morbid obesity (HCC) Morbid obesity Essential hypertension- Primary Unspecified essential hypertension Mixed hyperlipidemia AMANDA (obstructive sleep apnea) Obstructive sleep apnea (adult) (pediatric) Gastroesophageal reflux disease, unspecified whether esophagitis present Proteinuria, unspecified type Morbid obesity (HCC) Morbid obesity Mass of spine Screening for prostate cancer Special screening for malignant neoplasm of prostate 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 Fatigue, unspecified type Fatty liver Other chronic nonalcoholic liver disease Vitamin D deficiency Unspecified vitamin D deficiency Need for vaccination Need for prophylactic vaccination and inoculation against unspecified single disease [facility] [place] [facility]* Diagnosis Pre-operative examination- Primary Preoperative examination, unspecified Primary osteoarthritis of left hip Primary localized osteoarthrosis, pelvic region and thigh AMANDA (obstructive sleep apnea) Obstructive sleep apnea (adult) (pediatric) Mixed hyperlipidemia Right foot drop Other acquired deformity of ankle and foot Adjustment disorder with depressed mood Traumatic brain injury with loss of consciousness, subsequent encounter DDD (degenerative disc disease), lumbar Degeneration of lumbar or lumbosacral intervertebral disc Morbid obesity (HCC) Morbid obesity History of palpitations Personal history of other diseases of circulatory system Pre-op evaluation- Primary Preoperative examination, unspecified Essential hypertension Unspecified essential hypertension Mixed hyperlipidemia Hepatitis C antibody positive in blood Gastroesophageal reflux disease, unspecified whether esophagitis present Depression, unspecified depression type Anxiety Anxiety state, unspecified AMANDA (obstructive sleep apnea) Obstructive sleep apnea (adult) (pediatric) Traumatic brain injury with loss of consciousness, subsequent encounter Morbid obesity (HCC) Morbid obesity Polycythemia- Primary Polycythemia vera Hypothyroidism, unspecified type documented in this encounter [facility] note* Diagnosis Pre-operative examination- Primary Preoperative examination, unspecified Primary osteoarthritis of left hip Primary localized osteoarthrosis, pelvic region and thigh AMANDA (obstructive sleep apnea) Obstructive sleep apnea (adult) (pediatric) Mixed hyperlipidemia Right foot drop Other acquired deformity of ankle and foot Adjustment disorder with depressed mood Traumatic brain injury with loss of consciousness, subsequent encounter DDD (degenerative disc disease), lumbar Degeneration of lumbar or lumbosacral intervertebral disc Morbid obesity (HCC) Morbid obesity History of palpitations Personal history of other diseases of circulatory system Pre-op evaluation- Primary Preoperative examination, unspecified Essential hypertension Unspecified essential hypertension Mixed hyperlipidemia Hepatitis C antibody positive in blood Gastroesophageal reflux disease, unspecified whether esophagitis present Depression, unspecified depression type Anxiety Anxiety state, unspecified AMANDA (obstructive sleep apnea) Obstructive sleep apnea (adult) (pediatric) Traumatic brain injury with loss of consciousness, subsequent encounter Morbid obesity (HCC) Morbid obesity Rib pain on left side- Primary Chest pain, unspecified Muscle strain of chest wall, initial encounter Rib pain on left side Chest pain, unspecified [facility] [place] [facility]* Diagnosis Pre-operative examination- Primary Preoperative examination, unspecified Primary osteoarthritis of left hip Primary localized osteoarthrosis, pelvic region and thigh AMANDA (obstructive sleep apnea) Obstructive sleep apnea (adult) (pediatric) Mixed hyperlipidemia Right foot drop Other acquired deformity of ankle and foot Adjustment disorder with depressed mood Traumatic brain injury with loss of consciousness, subsequent encounter DDD (degenerative disc disease), lumbar Degeneration of lumbar or lumbosacral intervertebral disc Morbid obesity (HCC) Morbid obesity History of palpitations Personal history of other diseases of circulatory system Pre-op evaluation- Primary Preoperative examination, unspecified Essential hypertension Unspecified essential hypertension Mixed hyperlipidemia Hepatitis C antibody positive in blood Gastroesophageal reflux disease, unspecified whether esophagitis present Depression, unspecified depression type Anxiety Anxiety state, unspecified AMANDA (obstructive sleep apnea) Obstructive sleep apnea (adult) (pediatric) Traumatic brain injury with loss of consciousness, subsequent encounter Morbid obesity (HCC) Morbid obesity Rib pain on left side Chest pain, unspecified documented [facility] [place] [facility]* Diagnosis Pre-operative examination- Primary Preoperative examination, unspecified Primary osteoarthritis of left hip Primary localized osteoarthrosis, pelvic region and thigh AMANDA (obstructive sleep apnea) Obstructive sleep apnea (adult) (pediatric) Mixed hyperlipidemia Right foot drop Other acquired deformity of ankle and foot Adjustment disorder with depressed mood Traumatic brain injury with loss of consciousness, subsequent encounter DDD (degenerative disc disease), lumbar Degeneration of lumbar or lumbosacral intervertebral disc Morbid obesity (HCC) Morbid obesity History of palpitations Personal history of other diseases of circulatory system Pre-op evaluation- Primary Preoperative examination, unspecified Essential hypertension Unspecified essential hypertension Mixed hyperlipidemia Hepatitis C antibody positive in blood Gastroesophageal reflux disease, unspecified whether esophagitis present Depression, unspecified depression type Anxiety Anxiety state, unspecified AMANDA (obstructive sleep apnea) Obstructive sleep apnea (adult) (pediatric) Traumatic brain injury with loss of consciousness, subsequent encounter Morbid obesity (HCC) Morbid obesity 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 [facility] Diagnosis Pre-operative examination- Primary Preoperative examination, unspecified Primary osteoarthritis of left hip Primary localized osteoarthrosis, pelvic region and thigh AMANDA (obstructive sleep apnea) Obstructive sleep apnea (adult) (pediatric) Mixed hyperlipidemia Right foot drop Other acquired deformity of ankle and foot Adjustment disorder with depressed mood Traumatic brain injury with loss of consciousness, subsequent encounter DDD (degenerative disc disease), lumbar Degeneration of lumbar or lumbosacral intervertebral disc Morbid obesity (HCC) Morbid obesity History of palpitations Personal history of other diseases of circulatory system Pre-op evaluation- Primary Preoperative examination, unspecified Essential hypertension Unspecified essential hypertension Mixed hyperlipidemia Hepatitis C antibody positive in blood Gastroesophageal reflux disease, unspecified whether esophagitis present Depression, unspecified depression type Anxiety Anxiety state, unspecified AMANDA (obstructive sleep apnea) Obstructive sleep apnea (adult) (pediatric) Traumatic brain injury with loss of consciousness, subsequent encounter Morbid obesity (HCC) Morbid obesity Neoplasm of skin- Primary Neoplasm of unspecified nature of bone, soft tissue, and skin Proteinuria, unspecified type documented in this encounter [facility] note* Diagnosis Pre-operative examination- Primary Preoperative examination, unspecified Primary osteoarthritis of left hip Primary localized osteoarthrosis, pelvic region and thigh AMANDA (obstructive sleep apnea) Obstructive sleep apnea (adult) (pediatric) Mixed hyperlipidemia Right foot drop Other acquired deformity of ankle and foot Adjustment disorder with depressed mood Traumatic brain injury with loss of consciousness, subsequent encounter DDD (degenerative disc disease), lumbar Degeneration of lumbar or lumbosacral intervertebral disc Morbid obesity (HCC) Morbid obesity History of palpitations Personal history of other diseases of circulatory system Pre-op evaluation- Primary Preoperative examination, unspecified Essential hypertension Unspecified essential hypertension Mixed hyperlipidemia Hepatitis C antibody positive in blood Gastroesophageal reflux disease, unspecified whether esophagitis present Depression, unspecified depression type Anxiety Anxiety state, unspecified AMANDA (obstructive sleep apnea) Obstructive sleep apnea (adult) (pediatric) Traumatic brain injury with loss of consciousness, subsequent encounter Morbid obesity (HCC) Morbid obesity 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 [facility] [place] [facility]* Diagnosis Pre-operative examination- Primary Preoperative examination, unspecified Primary osteoarthritis of left hip Primary localized osteoarthrosis, pelvic region and thigh AMANDA (obstructive sleep apnea) Obstructive sleep apnea (adult) (pediatric) Mixed hyperlipidemia Right foot drop Other acquired deformity of ankle and foot Adjustment disorder with depressed mood Traumatic brain injury with loss of consciousness, subsequent encounter DDD (degenerative disc disease), lumbar Degeneration of lumbar or lumbosacral intervertebral disc Morbid obesity (HCC) Morbid obesity History of palpitations Personal history of other diseases of circulatory system Pre-op evaluation- Primary Preoperative examination, unspecified Essential hypertension Unspecified essential hypertension Mixed hyperlipidemia Hepatitis C antibody positive in blood Gastroesophageal reflux disease, unspecified whether esophagitis present Depression, unspecified depression type Anxiety Anxiety state, unspecified AMANDA (obstructive sleep apnea) Obstructive sleep apnea (adult) (pediatric) Traumatic brain injury with loss of consciousness, subsequent encounter Morbid obesity (HCC) Morbid obesity Skin lesion of back Unspecified disorder of skin and subcutaneous tissue Dysesthesia Disturbance of skin sensation [facility] [place] [facility]* Diagnosis Pre-operative examination- Primary Preoperative examination, unspecified Primary osteoarthritis of left hip Primary localized osteoarthrosis, pelvic region and thigh AMANDA (obstructive sleep apnea) Obstructive sleep apnea (adult) (pediatric) Mixed hyperlipidemia Right foot drop Other acquired deformity of ankle and foot Adjustment disorder with depressed mood Traumatic brain injury with loss of consciousness, subsequent encounter DDD (degenerative disc disease), lumbar Degeneration of lumbar or lumbosacral intervertebral disc Morbid obesity (HCC) Morbid obesity History of palpitations Personal history of other diseases of circulatory system Pre-op evaluation- Primary Preoperative examination, unspecified Essential hypertension Unspecified essential hypertension Mixed hyperlipidemia Hepatitis C antibody positive in blood Gastroesophageal reflux disease, unspecified whether esophagitis present Depression, unspecified depression type Anxiety Anxiety state, unspecified AMANDA (obstructive sleep apnea) Obstructive sleep apnea (adult) (pediatric) Traumatic brain injury with loss of consciousness, subsequent encounter Morbid obesity (HCC) Morbid obesity Skin lesion- Primary Unspecified disorder of skin and subcutaneous tissue Dysesthesia Disturbance of skin sensation [facility] [place] [facility]* Diagnosis Pre-operative examination- Primary Preoperative examination, unspecified Primary osteoarthritis of left hip Primary localized osteoarthrosis, pelvic region and thigh AMANDA (obstructive sleep apnea) Obstructive sleep apnea (adult) (pediatric) Mixed hyperlipidemia Right foot drop Other acquired deformity of ankle and foot Adjustment disorder with depressed mood Traumatic brain injury with loss of consciousness, subsequent encounter DDD (degenerative disc disease), lumbar Degeneration of lumbar or lumbosacral intervertebral disc Morbid obesity (HCC) Morbid obesity History of palpitations Personal history of other diseases of circulatory system Pre-op evaluation- Primary Preoperative examination, unspecified Essential hypertension Unspecified essential hypertension Mixed hyperlipidemia Hepatitis C antibody positive in blood Gastroesophageal reflux disease, unspecified whether esophagitis present Depression, unspecified depression type Anxiety Anxiety state, unspecified AMANDA (obstructive sleep apnea) Obstructive sleep apnea (adult) (pediatric) Traumatic brain injury with loss of consciousness, subsequent encounter Morbid obesity (HCC) Morbid obesity Proteinuria, unspecified type- Primary documented in this encounter [facility] note* Diagnosis Pre-operative examination- Primary Preoperative examination, unspecified Primary osteoarthritis of left hip Primary localized osteoarthrosis, pelvic region and thigh AMANDA (obstructive sleep apnea) Obstructive sleep apnea (adult) (pediatric) Mixed hyperlipidemia Right foot drop Other acquired deformity of ankle and foot Adjustment disorder with depressed mood Traumatic brain injury with loss of consciousness, subsequent encounter DDD (degenerative disc disease), lumbar Degeneration of lumbar or lumbosacral intervertebral disc Morbid obesity (HCC) Morbid obesity History of palpitations Personal history of other diseases of circulatory system Pre-op evaluation- Primary Preoperative examination, unspecified Essential hypertension Unspecified essential hypertension Mixed hyperlipidemia Hepatitis C antibody positive in blood Gastroesophageal reflux disease, unspecified whether esophagitis present Depression, unspecified depression type Anxiety Anxiety state, unspecified AMANDA (obstructive sleep apnea) Obstructive sleep apnea (adult) (pediatric) Traumatic brain injury with loss of consciousness, subsequent encounter Morbid obesity (HCC) Morbid obesity Other chest pain- Primary Coronary artery calcification Coronary atherosclerosis of unspecified type of vessel, [place] or graft Essential hypertension Unspecified essential hypertension [facility] [place] [facility] Diagnosis Pre-operative examination- Primary Preoperative examination, unspecified Primary osteoarthritis of left hip Primary localized osteoarthrosis, pelvic region and thigh AMANDA (obstructive sleep apnea) Obstructive sleep apnea (adult) (pediatric) Mixed hyperlipidemia Right foot drop Other acquired deformity of ankle and foot Adjustment disorder with depressed mood Traumatic brain injury with loss of consciousness, subsequent encounter DDD (degenerative disc disease), lumbar Degeneration of lumbar or lumbosacral intervertebral disc Morbid obesity (HCC) Morbid obesity History of palpitations Personal history of other diseases of circulatory system Pre-op evaluation- Primary Preoperative examination, unspecified Essential hypertension Unspecified essential hypertension Mixed hyperlipidemia Hepatitis C antibody positive in blood Gastroesophageal reflux disease, unspecified whether esophagitis present Depression, unspecified depression type Anxiety Anxiety state, unspecified AMANDA (obstructive sleep apnea) Obstructive sleep apnea (adult) (pediatric) Traumatic brain injury with loss of consciousness, subsequent encounter Morbid obesity (HCC) Morbid obesity Visit for suture removal- Primary Encounter for removal of sutures [facility] [place] [facility] Diagnosis Pre-operative examination- Primary Preoperative examination, unspecified Primary osteoarthritis of left hip Primary localized osteoarthrosis, pelvic region and thigh AMANDA (obstructive sleep apnea) Obstructive sleep apnea (adult) (pediatric) Mixed hyperlipidemia Right foot drop Other acquired deformity of ankle and foot Adjustment disorder with depressed mood Traumatic brain injury with loss of consciousness, subsequent encounter DDD (degenerative disc disease), lumbar Degeneration of lumbar or lumbosacral intervertebral disc Morbid obesity (HCC) Morbid obesity History of palpitations Personal history of other diseases of circulatory system Pre-op evaluation- Primary Preoperative examination, unspecified Essential hypertension Unspecified essential hypertension Mixed hyperlipidemia Hepatitis C antibody positive in blood Gastroesophageal reflux disease, unspecified whether esophagitis present Depression, unspecified depression type Anxiety Anxiety state, unspecified AMANDA (obstructive sleep apnea) Obstructive sleep apnea (adult) (pediatric) Traumatic brain injury with loss of consciousness, subsequent encounter Morbid obesity (HCC) Morbid obesity Traumatic brain injury with loss of consciousness, subsequent encounter- Primary Essential hypertension Unspecified essential hypertension Mixed hyperlipidemia AMANDA (obstructive sleep apnea) Obstructive sleep apnea (adult) (pediatric) Gastroesophageal reflux disease, unspecified whether esophagitis present Dyslipidemia Other and unspecified hyperlipidemia Degeneration of intervertebral disc of lumbar region, unspecified whether pain present Adjustment disorder with depressed mood 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 Morbid obesity (HCC) Morbid obesity Coronary artery calcification Coronary atherosclerosis of unspecified type of vessel, [place] or graft Lung nodule Solitary pulmonary nodule Proteinuria, unspecified type Screening for malignant neoplasm of prostate 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 documented in this encounter [facility] note* Diagnosis Pre-operative examination- Primary Preoperative examination, unspecified Primary osteoarthritis of left hip Primary localized osteoarthrosis, pelvic region and thigh AMANDA (obstructive sleep apnea) Obstructive sleep apnea (adult) (pediatric) Mixed hyperlipidemia Right foot drop Other acquired deformity of ankle and foot Adjustment disorder with depressed mood Traumatic brain injury with loss of consciousness, subsequent encounter DDD (degenerative disc disease), lumbar Degeneration of lumbar or lumbosacral intervertebral disc Morbid obesity (HCC) Morbid obesity History of palpitations Personal history of other diseases of circulatory system Pre-op evaluation- Primary Preoperative examination, unspecified Essential hypertension Unspecified essential hypertension Mixed hyperlipidemia Hepatitis C antibody positive in blood Gastroesophageal reflux disease, unspecified whether esophagitis present Depression, unspecified depression type Anxiety Anxiety state, unspecified AMANDA (obstructive sleep apnea) Obstructive sleep apnea (adult) (pediatric) Traumatic brain injury with loss of consciousness, subsequent encounter Morbid obesity (HCC) Morbid obesity Pigmented skin lesion of uncertain behavior of torso- Primary documented in this encounter [facility] note* Diagnosis Pre-operative examination- Primary Preoperative examination, unspecified Primary osteoarthritis of left hip Primary localized osteoarthrosis, pelvic region and thigh AMANDA (obstructive sleep apnea) Obstructive sleep apnea (adult) (pediatric) Mixed hyperlipidemia Right foot drop Other acquired deformity of ankle and foot Adjustment disorder with depressed mood Traumatic brain injury with loss of consciousness, subsequent encounter DDD (degenerative disc disease), lumbar Degeneration of lumbar or lumbosacral intervertebral disc Morbid obesity (HCC) Morbid obesity History of palpitations Personal history of other diseases of circulatory system Pre-op evaluation- Primary Preoperative examination, unspecified Essential hypertension Unspecified essential hypertension Mixed hyperlipidemia Hepatitis C antibody positive in blood Gastroesophageal reflux disease, unspecified whether esophagitis present Depression, unspecified depression type Anxiety Anxiety state, unspecified AMANDA (obstructive sleep apnea) Obstructive sleep apnea (adult) (pediatric) Traumatic brain injury with loss of consciousness, subsequent encounter Morbid obesity (HCC) Morbid obesity Visit for suture removal- Primary Encounter for removal of sutures [facility] Diagnosis Pre-operative examination- Primary Preoperative examination, unspecified Primary osteoarthritis of left hip Primary localized osteoarthrosis, pelvic region and thigh AMANDA (obstructive sleep apnea) Obstructive sleep apnea (adult) (pediatric) Mixed hyperlipidemia Right foot drop Other acquired deformity of ankle and foot Adjustment disorder with depressed mood Traumatic brain injury with loss of consciousness, subsequent encounter DDD (degenerative disc disease), lumbar Degeneration of lumbar or lumbosacral intervertebral disc Morbid obesity (HCC) Morbid obesity History of palpitations Personal history of other diseases of circulatory system Pre-op evaluation- Primary Preoperative examination, unspecified Essential hypertension Unspecified essential hypertension Mixed hyperlipidemia Hepatitis C antibody positive in blood Gastroesophageal reflux disease, unspecified whether esophagitis present Depression, unspecified depression type Anxiety Anxiety state, unspecified AMANDA (obstructive sleep apnea) Obstructive sleep apnea (adult) (pediatric) Traumatic brain injury with loss of consciousness, subsequent encounter Morbid obesity (HCC) Morbid obesity 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 [facility] Diagnosis Pre-operative examination- Primary Preoperative examination, unspecified Primary osteoarthritis of left hip Primary localized osteoarthrosis, pelvic region and thigh AMANDA (obstructive sleep apnea) Obstructive sleep apnea (adult) (pediatric) Mixed hyperlipidemia Right foot drop Other acquired deformity of ankle and foot Adjustment disorder with depressed mood Traumatic brain injury with loss of consciousness, subsequent encounter DDD (degenerative disc disease), lumbar Degeneration of lumbar or lumbosacral intervertebral disc Morbid obesity (HCC) Morbid obesity History of palpitations Personal history of other diseases of circulatory system Pre-op evaluation- Primary Preoperative examination, unspecified Essential hypertension Unspecified essential hypertension Mixed hyperlipidemia Hepatitis C antibody positive in blood Gastroesophageal reflux disease, unspecified whether esophagitis present Depression, unspecified depression type Anxiety Anxiety state, unspecified AMANDA (obstructive sleep apnea) Obstructive sleep apnea (adult) (pediatric) Traumatic brain injury with loss of consciousness, subsequent encounter Morbid obesity (HCC) Morbid obesity Hypertension, unspecified type- Primary Dyslipidemia Other and unspecified hyperlipidemia Gastroesophageal reflux disease, unspecified whether esophagitis present AMANDA (obstructive sleep apnea) Obstructive sleep apnea (adult) (pediatric) Morbid obesity (HCC) Morbid obesity documented in this encounter [facility] Discharge instructions Additional Instructions . You can still continue to take a shower. Use Bactroban 3 times a day to help with wound healing and help prevent infection. Your abrasions and small laceration to your right upper arm will heal from the inside out. Small foreign bodies were removed. Any other acute concerns, follow-up with PCP in 2 or 3 days for wound check.[facility] Work Phone: Reason for referral (narrative)* Outpatient Procedure (Routine) - Pending Review Specialty Diagnoses / Procedures Referred By Contac t Referred To [facility] Diagnoses Facial numbness Procedures ECG COMPLETE ECG ROUTINE ECG W/LEAST 12 LDS W/I&R Marita Moore APRN.LEATHER SORTER [address] [place] [address] [facility] [address] [address] Referral ID Status Reason Start Date Expiration Date Visits Requested Visits Authorized [id number] Pending Review Auto-Generat ed Referral 02/21/2022 02/21/2023 1 1 * Outpatient Procedure (Routine) - Pending Review Specialty Diagnoses / Procedures Referred By Contac t Referred To Contact [facility] [place] Diagnoses Dizziness Facial numbness Procedures US CAROTID ARTERIES NAE VAS LAB DUPLEX SCAN EXTRACRANIAL ART COMPL BI STUDY Marita Moore APRN.LEATHER SORTER [address] [place] [address] [facility] [address] [address] Referral ID Status Reason Start Date Expiration Date Visits Requested Visits Authorized [id number] Pending Review Auto-Generat ed Referral 02/21/2022 02/21/2023 1 1 [facility] for referral (narrative)* Diagnostic Procedure Only (Routine) - Pending Review Specialty Diagnoses / Procedures Referred By Contac t Referred To Contact XR IMAGING Diagnoses Pain in left hip Procedures XR HIP 2V AP/LAT LEFT (AK,FL,ME) RADEX HIP UNILATERAL WITH PELVIS 2-3 VIEWS Hesham Koch APRN.LEATHER SORTER [address] [facility], [address] [place] [id number] X[facility] Referral ID Status Reason Start Date Expiration Date Visits Requested Visits Authorized [id number] Pending Review Auto-Generat ed Referral 07/21/2022 08/19/2023 1 1 [facility] for referral (narrative)* Outpatient Procedure (Routine) - Closed Specialty Diagnoses / Procedures Referred By Contac t Referred To Contact [facility] Diagnoses Screen for colon cancer Procedures COLONOSCOPY SCREENING COLONOSCOPY FLX DX W/COLLJ SPEC WHEN PFRMD Jake Alberto PA-C [address] [facility] [place] [address] [facility] [address] [place] [address] Referral ID Status Reason Start Date Expiration Date V isits Requested Visits Authorized [id number] Closed Auto-Generate d Referral 05/28/2022 10/29/2022 1 1 [facility] for referral (narrative)* Diagnostic Procedure Only (Routine) - Authorized Specialty Diagnoses / Procedures Referred By Contac t Referred To Contact XR IMAGING Diagnoses Pharyngeal dysphagia Procedures XR ESOPHAGRAM RADIOLOGIC EXAM ESOPHAGUS SINGLE CONTRAST STUDY Annie Ortiz PA-C [address] [place] [address] X[facility] Imaging Referral ID Status Reason Start Date Expiration Date Visits Requested Visits Authorized [id number] Authorized Auto-Generat ed Referral 12/16/2022 01/15/2024 1 1 [facility] for referral (narrative)* Diagnostic Procedure Only (Routine) - Authorized Specialty Diagnoses / Procedures Referred By Contac t Referred To Contact XR IMAGING Diagnoses Dysphagia, unspecified type Procedures XR MODIFIED BARIUM SWALLOW W SPEECH THERAPY RADIOLOGIC EXAM SWALLOW FUNCTION CONTRAST STUDY Cynthia Varner MD [address] [place] [id number] X[facility] Imaging Referral ID Status Reason Start Date Expiration Date Visits Requested Visits Authorized [id number] Authorized Auto-Generat ed Referral 01/10/2023 02/09/2024 1 1 [facility] for referral (narrative)* Outpatient Procedure (Routine) - Closed Specialty Diagnoses / Procedures Referred By Contac t Referred To Contact Diagnoses Pharyngeal dysphagia Procedures EGD DIAGNOSTIC ESOPHAGOGASTRODUODENOSCOPY TRANSORAL DIAGNOSTIC Annie Ortiz PA-C [address] [place] [address] [facility] [address] [facility] [place] [address] Referral ID Status Reason Start Date Expiration Date V isits Requested Visits Authorized [id number] Closed Auto-Generate d Referral 01/18/2023 04/18/2023 1 1 [facility] for referral (narrative)* Diagnostic Procedure Only (Routine) - Authorized Specialty Diagnoses / Procedures Referred By Contac t Referred To Contact CT IMAGING Diagnoses COVID-19 Acute respiratory failure with hypoxia (HCC) Procedures CT CHEST W IVCON DIAGNOSTIC COMPUTED TOMOGRAPHY THORAX W/CONTRAST Tara Hilliard SHIFT BOSS.LEATHER SORTER [address] [place] [address] [place] [address] Referral ID Status Reason Start Date Expiration Date Visits Requested Visits Authorized [id number] Authorized Auto-Generat ed Referral 07/30/2024 10/29/2024 1 1 [facility] for referral (narrative)* Diagnostic Procedure Only (Routine) - Closed Specialty Diagnoses / Procedures Referred By Contac t Referred To Contact XR IMAGING Diagnoses Neck pain Procedures XR CERV OTHER 4V AP/LAT/OBL RADEX SPINE CERVICAL 4 OR 5 VIEWS Myah Arteaga MD [address] [place] [address] [place] [address] Referral ID Status Reason Start Date Expiration Date V isits Requested Visits Authorized [id number] Closed Auto-Generate d Referral 03/14/2022 04/13/2023 1 1 [facility] for referral (narrative)* Diagnostic Procedure Only (Routine) - Closed Specialty Diagnoses / Procedures Referred By Contac t Referred To Contact XR IMAGING Diagnoses Post-traumatic osteoarthritis of left hip Procedures XR KNEE POST OP 3V AP/LAT/MERCHANT LEFT X-RAY KNEE 3+ VW Dawit Carrillo MD [address] [address] [place] [address] Referral ID Status Reason Start Date Expiration Date V isits Requested Visits Authorized [id number] Closed Auto-Generate d Referral 11/12/2021 12/12/2022 1 1 [facility] for referral (narrative)* Outpatient Procedure (Routine) - Authorized Specialty Diagnoses / Procedures Referred By Contac t Referred To Contact [facility] Diagnoses Moderate persistent reactive airway disease with wheezing without complication Procedures SPIROMETRY WITH DILATOR IF OBSTRUCTED BRNCDILAT RSPSE SPMTRY PRE&POST-BRNCDILAT ADMN Tara Hilliard, SHIFT BOSS.LEATHER SORTER [address] [place] [address] [facility] [place] [address] [place] [address] Referral ID Status Reason Start Date Expiration Date Visits Requested Visits Authorized [id number] Authorized Auto-Generat ed Referral 10/29/2024 1 1 [facility] for referral (narrative)* Diagnostic Procedure Only (Routine) - Authorized Specialty Diagnoses / Procedures Referred By Contac t Referred To Contact [facility] Diagnoses Coronary artery calcification Other chest pain Procedures NM CARDIAC PERF STRESS/PHARM MYOCARDIAL SPECT MULTIPLE STUDIES Layla Lewis MD [address] [place] [address] [facility] [address] [place] [address] Referral ID Status Reason Start Date Expiration Date Visits Requested Visits Authorized [id number] Authorized Auto-Generat ed Referral 10/03/2024 11/02/2025 1 1 * Outpatient Procedure (Routine) - Closed Specialty Diagnoses / Procedures Referred By Lynette t Referred To Contact [facility] Diagnoses Coronary artery calcification seen on CT scan Procedures ECG COMPLETE ECG ROUTINE ECG W/LEAST 12 LDS W/I&R Layla Lewis MD [address] [place] [address] [facility] [place] [address] [place] [address] Referral ID Status Reason Start Date Expiration Date V isits Requested Visits Authorized [id number] Closed Auto-Generate d Referral 10/02/2024 10/02/2025 1 1 [facility] for referral (narrative)* Diagnostic Procedure Only (Routine) - Closed Specialty Diagnoses / Procedures Referred By Lynette ceballos Referred To Contact [facility] Diagnoses Coronary artery calcification Other chest pain Procedures NM CARDIAC PERF STRESS/PHARM MYOCARDIAL SPECT MULTIPLE STUDIES Layla Lewis MD [address] [place] [address] [facility] [address] [place] [address] Referral ID Status Reason Start Date Expiration Date V isits Requested Visits Authorized [id number] Closed Auto-Generate d Referral 10/03/2024 11/02/2025 1 1 [facility] for visit Narrative* Outpatient Procedure (Routine) - Closed Specialty Diagnoses / Procedures Referred By Lynette ceballos Referred To Contact Diagnoses Pharyngeal dysphagia Procedures EGD DIAGNOSTIC ESOPHAGOGASTRODUODENOSCOPY TRANSORAL DIAGNOSTIC Annie Ortiz PA-C [address] [place] [address] [facility] [address] [place] [address] Referral ID Status Reason Start Date Expiration Date V isits Requested Visits Authorized [id number] Closed Auto-Generate d Referral 01/18/2023 04/18/2023 1 1 [facility] for visit Narrative* Diagnostic Procedure Only (Routine) - Closed Specialty Diagnoses / Procedures Referred By Contac t Referred To Contact US IMAGING Diagnoses Proteinuria, unspecified type Procedures US KIDNEY/BLADDER US RETROPERITONEAL REAL TIME W/IMAGE COMPLETE Myah Arteaga MD [address] [place] [address] [place] [address] Referral ID Status Reason Start Date Expiration Date V isits Requested Visits Authorized [id number] Closed Auto-Generate d Referral 02/16/2024 03/17/2025 1 1 [facility] for visit Narrative* Diagnostic Procedure Only (Routine) - Closed Specialty Diagnoses / Procedures Referred By Contac t Referred To Contact XR IMAGING Diagnoses Neck pain Procedures XR CERV OTHER 4V AP/LAT/OBL RADEX SPINE CERVICAL 4 OR 5 VIEWS Myah Arteaga MD [address] [place] [address] [place] [address] Referral ID Status Reason Start Date Expiration Date V isits Requested Visits Authorized [id number] Closed Auto-Generate d Referral 03/14/2022 04/13/2023 1 1 [facility] for visit Narrative* Diagnostic Procedure Only (Routine) - Closed Specialty Diagnoses / Procedures Referred By Contac t Referred To Contact [facility] Diagnoses Coronary artery calcification Other chest pain Procedures NM CARDIAC PERF STRESS/PHARM MYOCARDIAL SPECT MULTIPLE STUDIES Layla Lewis MD [facility] [place] [address] [facility] [address] [place] [address] Referral ID Status Reason Start Date Expiration Date V isits Requested Visits Authorized [id number] Closed Auto-Generate d Referral 10/03/2024 11/02/2025 1 1 [facility] Diagnostic Procedure Only (Urgent) - Closed Specialty Diagnoses / Procedures Referred By Contac t Referred To Contact XR IMAGING Diagnoses Rib pain on left side Procedures XR RIBS/CHEST 3V AP RIB/OBLS/CXR LEFT RADEX RIBS UNI W/POSTEROANT CH MINIMUM 3 VIEWS Annie Donato, HEYDI.LEATHER SORTER [address] [facility] [place] [address] Phone: tel: fax: [place] [address] Referral ID Status Reason Start Date Expiration Date V isits Requested Visits Authorized [id number] Closed Auto-Generate d Referral 01/01/2025 01/31/2026 1 1 [facility] Summary Purpose Family History No Family History Records Found Relationship Condition Age at Onset Recorded Date/T jose ramon father Malignant neoplasm Unknown mother Cerebrovascular accident (CVA) Unknown Cardiac disease Unknown Advance Directives No Advanced Directives Records FoundDocuments on File Type Date Recorded Patient Machine Wood Sander Expl anation Advance Directive(s) 12/03/2021 6:42 PM Advance Directive(s) 11/25/2021 2:29 PM Advance Directive(s) 07/31/2017 8:43 PM Latest Code Status on File Code Status Date Activated Date Inactivated Comments Full Code 12/08/2021 10:41 AM Documents on File Type Date Recorded Patient Machine Wood Sander Expl anation Advance Directive(s) 12/03/2021 6:42 PM Advance Directive(s) 11/25/2021 2:29 PM Advance Directive(s) 07/31/2017 8:43 PM Latest Code Status on File Code Status Date Activated Date Inactivated Comments Full Code 12/08/2021 10:41 AM Advance Directive Response Recorded Date/ Time Living Will No February 21, 2022 10:01am Power of Skiff Operator No February 21 10:01am Advance Directive Response Recorded Date/ Time Living Will No April 15, 2023 4:56pm Power of Skiff Operator No April 15 4:56pm Latest Code Status on File Code Status Date Activated Date Inactivated Comments Full Code 12/08/2021 10:41 AM Latest Code Status on File Code Status Date Activated Date Inactivated Comments Full Code 12/08/2021 10:41 AM Date Activated Date Inactivated Comments 12/08/2021 10:41 AM Date Activated Date Inactivated Comments 12/08/2021 10:41 AM Chief Complaint and Reason for Visit Chief Complaint RIGHT FACIAL AND TON SASKIA NUMBNESS, HEADACHE [id number] Chief Complaint ABRASSIONS Chief Complaint ABRASSIONS Other cervical disc degeneration, unspecified cerv Chief Complaint ABRASSIONS Other cervical disc degeneration, unspecified cerv NECK PAIN RX HERE Reason for Referral Specialty Diagnoses / Procedures Referred By Contac t Referred To Contact Diagnoses Recurrent major depressive disorder, remission status unspecified (HCC) Procedures CONSULT TO PSYCHIATRY OFFICE/OUTPATIENT [facility] 60-74 MINUTES Edward Dhaliwal MD [address] [place] [address] Referral ID Status Reason Start Date Expiration Date Visits Requested Visits Authorized [id number] Pending Review PCP Requested Referral 02/25/2022 02/25/2023 1 1 Specialty Diagnoses / Procedures Referred By Contac t Referred To Contact General Surgery Diagnoses Screening for colon cancer Procedures CONSULT TO GENERAL SURGERY OFFICE/OUTPATIENT [facility] 60-74 MINUTES Myah Arteaga MD [address] [place] [address] Referral ID Status Reason Start Date Expiration Date Visits Requested Visits Authorized [id number] Pending Review PCP Requested Referral 04/27/2022 04/27/2023 1 1 Specialty Diagnoses / Procedures Referred By Contac t Referred To Contact Endocrinology Diagnoses Secondary male hypogonadism Elevated prolactin level Procedures CONSULT TO ENDOCRINOLOGY OFFICE/OUTPATIENT [facility] 60-74 MINUTES Myah Arteaga MD [address] [place] [address] Referral ID Status Reason Start Date Expiration Date Visits Requested Visits Authorized [id number] Pending Review PCP Requested Referral 04/27/2022 04/27/2023 1 1 Specialty Diagnoses / Procedures Referred By Contac t Referred To Contact XR IMAGING Diagnoses Pain in left hip Procedures XR HIP 2V AP/LAT LEFT (AK,FL,[place]) RADEX HIP UNILATERAL WITH PELVIS 2-3 VIEWS Hesham Koch, HEYDI.LEATHER SORTER [address] [facility], [address] [place] [id number] Xr Imaging Referral ID Status Reason Start Date Expiration Date V isits Requested Visits Authorized [id number] Closed Auto-Generate d Referral 07/21/2022 08/04/2022 1 1 Specialty Diagnoses / Procedures Referred By Contac t Referred To Contact Diagnoses AMANDA (obstructive sleep apnea) Procedures CONSULT TO SLEEP MEDICINE - ADULT OFFICE/OUTPATIENT [facility] 60 MINUTES Myah Arteaga MD [address] [place] [phone] Referral ID Status Reason Start Date Expiration Date Visits Requested Visits Authorized [id number] Authorized PCP Requested Referral 12/11/2023 12/10/2024 1 1 Specialty Diagnoses / Procedures Referred By Contac t Referred To Contact MR IMAGING Diagnoses Soft tissue mass Upper back pain Procedures MRI THORACIC SPINE WO/W IVCON MRI SPINAL CANAL THORACIC W/O & W/CONTR Myah Dacosta MD [address] [place] [phone] [place] [address] Referral ID Status Reason Start Date Expiration Date Visits Requested Visits Authorized [id number] Authorized Auto-Generat ed Referral 02/13/2024 03/14/2025 1 1 Specialty Diagnoses / Procedures Referred By Contac t Referred To Contact MR IMAGING Diagnoses Soft tissue mass Procedures MRI LUMBAR SPINE WO/W IVCON MRI SPINAL CANAL LUMBAR W/O & W/CONTR Myah Dacosta MD [address] [place] [id number] [place] [address] Referral ID Status Reason Start Date Expiration Date Visits Requested Visits Authorized [id number] Authorized Auto-Generat ed Referral 02/13/2024 03/14/2025 1 1 Specialty Diagnoses / Procedures Referred By Contac t Referred To Contact Nephrology Diagnoses Proteinuria, unspecified type Procedures CONSULT TO NEPHROLOGY OFFICE/OUTPATIENT [facility] 60 MINUTES Myah Arteaga MD [address] [place] [address] Referral ID Status Reason Start Date Expiration Date Visits Requested Visits Authorized [id number] Authorized PCP Requested Referral 02/16/2024 02/15/2025 1 1 Specialty Diagnoses / Procedures Referred By Contac t Referred To Contact US IMAGING Diagnoses Proteinuria, unspecified type Procedures US KIDNEY/BLADDER US RETROPERITONEAL REAL TIME W/IMAGE COMPLETE Myah Arteaga MD [address] [place] [address] [place] [address] Referral ID Status Reason Start Date Expiration Date Visits Requested Visits Authorized [id number] Authorized Auto-Generat ed Referral 02/16/2024 03/17/2025 1 1 Referral ID Status Reason Start Date Expiration Date V isits Requested Visits Authorized [id number] Closed Auto-Generate d Referral 02/13/2024 03/14/2025 1 1 Referral ID Status Reason Start Date Expiration Date V isits Requested Visits Authorized [id number] Closed Auto-Generate d Referral 02/13/2024 03/14/2025 1 1 Specialty Diagnoses / Procedures Referred By Contac t Referred To Contact Diagnoses AMANDA (obstructive sleep apnea) Dyslipidemia Morbid obesity (HCC) Procedures CONSULT [facility] OFFICE/OUTPATIENT [facility] 60 MINUTES Sheron Mark MD [address] [place] [id number] Referral ID Status Reason Start Date Expiration Date Visits Requested Visits Authorized [id number] Authorized PCP Requested Referral 02/26/2024 02/25/2025 1 1 Specialty Diagnoses / Procedures Referred By Contac t Referred To Contact MR IMAGING Diagnoses Other specified disorders of kidney and ureter Procedures MRI KIDNEY WO/W IVCON MRI ABDOMEN W/O & W/CONTRAST MATERIAL Myah Arteaga MD [address] [place] [address] Mr Imaging [facility] Referral ID Status Reason Start Date Expiration Date Visits Requested Visits Authorized [id number] Authorized Auto-Generat ed Referral 02/23/2024 03/24/2025 1 1 Specialty Diagnoses / Procedures Referred By Contac t Referred To Contact Cardiology Diagnoses Coronary artery calcification Procedures CONSULT TO CARDIOLOGY OFFICE/OUTPATIENT [facility] 60 MINUTES Lacy Kessler MD [address] [place] [address] Referral ID Status Reason Start Date Expiration Date Visits Requested Visits Authorized [id number] Authorized PCP Requested Referral 10/01/2024 10/01/2025 1 1 Specialty Diagnoses / Procedures Referred By Contac t Referred To Contact [facility] Diagnoses Cough, unspecified type Procedures NITRIC OXIDE, EXHALED NITRIC OXIDE GAS DETERMINATION Lacy Kessler MD [address] [place] [address] [facility] [place] [address] [place] [address] Referral ID Status Reason Start Date Expiration Date V isits Requested Visits Authorized [id number] Closed Clearance Not Met -Financial Clearance Bypassed 10/01/2024 10/29/2024 1 1 Medications Administered Section Inactive Administered Medications - up to 3 most recent administrations Medication Order MAR Action Action Date Dose Rate Site benzocaine 20% 1 [place] (TOPEX) 1 [place], TOPICAL, DIRECTED, Starting on Mon01/18/23 at 1230, Until Mon01/18/23 at 1629, DOSING DIRECTED BY PHYSICIAN FOR PROCEDURAL SEDATION ONLY - Pharmaceutical Waste: Aerosol -, Intraprocedure Given 01/18/2023 12:22 PM EDT 1 [place] fentaNYL 50 mcg/mL 25-100 mcg injection (SUBLIMAZE) 25-100 mcg, INTRAVENOUS, DIRECTED, Starting on Mon01/18/23 at 1230, Until Mon01/18/23 at 1629, DOSING DIRECTED BY PHYSICIAN FOR PROCEDURAL SEDATION ONLY, Intraprocedure Given 01/18/2023 12:27 PM EDT 25 mcg Given 01/18/2023 12:25 PM EDT 25 mcg Given 01/18/2023 12:23 PM EDT 25 mcg lactated ringers iv infusion 30 mL/hr, INTRAVENOUS, CONTINUOUS, Starting on Mon01/18/23 at 1130, Until Mon01/18/23 at 1324, Preprocedure New Bag/Syringe/Bottle 01/18/2023 11:59 AM EDT 30 mL/hr 30 mL/hr midazolam 1-5 mg injection (VERSED) 1-5 mg, INTRAVENOUS, DIRECTED, Starting on Mon01/18/23 at 1230, Until Mon01/18/23 at 1629, DOSING DIRECTED BY PHYSICIAN FOR PROCEDURAL SEDATION ONLY, Intraprocedure Given 01/18/2023 12:27 PM EDT 1 mg Given 01/18/2023 12:25 PM EDT 1 mg Given 01/18/2023 12:23 PM EDT 1 mg Additional Source Comments (unrecognized sect ion and content) No Status Records FoundNo Status Records FoundNo Status Records FoundNo Status Records FoundNo Status Records FoundNo Status Records FoundNo Status Records Found INFORMATION SOURCE (unrecogn ized section and content) DATE CREATED AUTHOR 08/08/2018 [facility] DATE CREATED AUTHOR AUTHOR'S ORGANIZ ATION 01/20/2023 [facility] DATE CREATED AUTHOR AUTHOR'S ORGANIZ ATION 02/14/2024 [facility] DATE CREATED AUTHOR AUTHOR'S ORGANIZ ATION 03/12/2024 [facility] DATE CREATED AUTHOR AUTHOR'S ORGANIZ ATION 04/20/2024 [facility] DATE CREATED AUTHOR AUTHOR'S ORGANIZ ATION 08/10/[address] [facility] DATE CREATED AUTHOR AUTHOR'S ORGANIZ ATION 09/10/2025 [facility] Source Comments (unrecognize d section and content) In the event this informatio n is protected by the Federal Confidentiality of Alcohol and Drug Abuse Patient Records regulations: The Federal rules restrict any use of the information to criminally investigate or prosecute any alcohol or drug abuse patient.[facility] HospitalIn the event this information is protected by the Federal Confidentiality of Alcohol and Drug Abuse Patient Records regulations: The Federal rules restrict any use of the information to criminally investigate or prosecute any alcohol or drug abuse patient.[facility] HospitalIn the event this information is protected by the Federal Confidentiality of Alcohol and Drug Abuse Patient Records regulations: The Federal rules restrict any use of the information to criminally investigate or prosecute any alcohol or drug abuse patient.[facility] HospitalIn the event this information is protected by the Federal Confidentiality of Alcohol and Drug Abuse Patient Records regulations: The Federal rules restrict any use of the information to criminally investigate or prosecute any alcohol or drug abuse patient.[facility] HospitalIn the event this information is protected by the Federal Confidentiality of Alcohol and Drug Abuse Patient Records regulations: The Federal rules restrict any use of the information to criminally investigate or prosecute any alcohol or drug abuse patient.[facility] HospitalIn the event this information is protected by the Federal Confidentiality of Alcohol and Drug Abuse Patient Records regulations: The Federal rules restrict any use of the information to criminally investigate or prosecute any alcohol or drug abuse patient.[facility] HospitalIn the event this information is protected by the Federal Confidentiality of Alcohol and Drug Abuse Patient Records regulations: The Federal rules restrict any use of the information to criminally investigate or prosecute any alcohol or drug abuse patient.[facility] HospitalIn the event this information is protected by the Federal Confidentiality of Alcohol and Drug Abuse Patient Records regulations: The Federal rules restrict any use of the information to criminally investigate or prosecute any alcohol or drug abuse patient.[facility] HospitalIn the event this information is protected by the Federal Confidentiality of Alcohol and Drug Abuse Patient Records regulations: The Federal rules restrict any use of the information to criminally investigate or prosecute any alcohol or drug abuse patient.[facility] HospitalIn the event this information is protected by the Federal Confidentiality of Alcohol and Drug Abuse Patient Records regulations: The Federal rules restrict any use of the information to criminally investigate or prosecute any alcohol or drug abuse patient.[facility] HospitalIn the event this information is protected by the Federal Confidentiality of Alcohol and Drug Abuse Patient Records regulations: The Federal rules restrict any use of the information to criminally investigate or prosecute any alcohol or drug abuse patient.[facility] HospitalIn the event this information is protected by the Federal Confidentiality of Alcohol and Drug Abuse Patient Records regulations: The Federal rules restrict any use of the information to criminally investigate or prosecute any alcohol or drug abuse patient.[facility] HospitalIn the event this information is protected by the Federal Confidentiality of Alcohol and Drug Abuse Patient Records regulations: The Federal rules restrict any use of the information to criminally investigate or prosecute any alcohol or drug abuse patient.[facility] HospitalIn the event this information is protected by the Federal Confidentiality of Alcohol and Drug Abuse Patient Records regulations: The Federal rules restrict any use of the information to criminally investigate or prosecute any alcohol or drug abuse patient.[facility] HospitalIn the event this information is protected by the Federal Confidentiality of Alcohol and Drug Abuse Patient Records regulations: The Federal rules restrict any use of the information to criminally investigate or prosecute any alcohol or drug abuse patient.[facility] HospitalIn the event this information is protected by the Federal Confidentiality of Alcohol and Drug Abuse Patient Records regulations: The Federal rules restrict any use of the information to criminally investigate or prosecute any alcohol or drug abuse patient.[facility] HospitalIn the event this information is protected by the Federal Confidentiality of Alcohol and Drug Abuse Patient Records regulations: The Federal rules restrict any use of the information to criminally investigate or prosecute any alcohol or drug abuse patient.[facility] HospitalIn the event this information is protected by the Federal Confidentiality of Alcohol and Drug Abuse Patient Records regulations: The Federal rules restrict any use of the information to criminally investigate or prosecute any alcohol or drug abuse patient.[facility] HospitalIn the event this information is protected by the Federal Confidentiality of Alcohol and Drug Abuse Patient Records regulations: The Federal rules restrict any use of the information to criminally investigate or prosecute any alcohol or drug abuse patient.[facility] HospitalIn the event this information is protected by the Federal Confidentiality of Alcohol and Drug Abuse Patient Records regulations: The Federal rules restrict any use of the information to criminally investigate or prosecute any alcohol or drug abuse patient.[facility] HospitalIn the event this information is protected by the Federal Confidentiality of Alcohol and Drug Abuse Patient Records regulations: The Federal rules restrict any use of the information to criminally investigate or prosecute any alcohol or drug abuse patient.[facility] HospitalIn the event this information is protected by the Federal Confidentiality of Alcohol and Drug Abuse Patient Records regulations: The Federal rules restrict any use of the information to criminally investigate or prosecute any alcohol or drug abuse patient.[facility] HospitalIn the event this information is protected by the Federal Confidentiality of Alcohol and Drug Abuse Patient Records regulations: The Federal rules restrict any use of the information to criminally investigate or prosecute any alcohol or drug abuse patient.[facility] HospitalIn the event this information is protected by the Federal Confidentiality of Alcohol and Drug Abuse Patient Records regulations: The Federal rules restrict any use of the information to criminally investigate or prosecute any alcohol or drug abuse patient.[facility] HospitalIn the event this information is protected by the Federal Confidentiality of Alcohol and Drug Abuse Patient Records regulations: The Federal rules restrict any use of the information to criminally investigate or prosecute any alcohol or drug abuse patient.[facility] HospitalIn the event this information is protected by the Federal Confidentiality of Alcohol and Drug Abuse Patient Records regulations: The Federal rules restrict any use of the information to criminally investigate or prosecute any alcohol or drug abuse patient.[facility] HospitalIn the event this information is protected by the Federal Confidentiality of Alcohol and Drug Abuse Patient Records regulations: The Federal rules restrict any use of the information to criminally investigate or prosecute any alcohol or drug abuse patient.[facility] HospitalIn the event this information is protected by the Federal Confidentiality of Alcohol and Drug Abuse Patient Records regulations: The Federal rules restrict any use of the information to criminally investigate or prosecute any alcohol or drug abuse patient.[facility] HospitalIn the event this information is protected by the Federal Confidentiality of Alcohol and Drug Abuse Patient Records regulations: The Federal rules restrict any use of the information to criminally investigate or prosecute any alcohol or drug abuse patient.[facility] HospitalIn the event this information is protected by the Federal Confidentiality of Alcohol and Drug Abuse Patient Records regulations: The Federal rules restrict any use of the information to criminally investigate or prosecute any alcohol or drug abuse patient.[facility] HospitalIn the event this information is protected by the Federal Confidentiality of Alcohol and Drug Abuse Patient Records regulations: The Federal rules restrict any use of the information to criminally investigate or prosecute any alcohol or drug abuse patient.[facility] HospitalIn the event this information is protected by the Federal Confidentiality of Alcohol and Drug Abuse Patient Records regulations: The Federal rules restrict any use of the information to criminally investigate or prosecute any alcohol or drug abuse patient.[facility] HospitalIn the event this information is protected by the Federal Confidentiality of Alcohol and Drug Abuse Patient Records regulations: The Federal rules restrict any use of the information to criminally investigate or prosecute any alcohol or drug abuse patient.[facility] HospitalIn the event this information is protected by the Federal Confidentiality of Alcohol and Drug Abuse Patient Records regulations: The Federal rules restrict any use of the information to criminally investigate or prosecute any alcohol or drug abuse patient.[facility] HospitalIn the event this information is protected by the Federal Confidentiality of Alcohol and Drug Abuse Patient Records regulations: The Federal rules restrict any use of the information to criminally investigate or prosecute any alcohol or drug abuse patient.[facility] HospitalIn the event this information is protected by the Federal Confidentiality of Alcohol and Drug Abuse Patient Records regulations: The Federal rules restrict any use of the information to criminally investigate or prosecute any alcohol or drug abuse patient.[facility] HospitalIn the event this information is protected by the Federal Confidentiality of Alcohol and Drug Abuse Patient Records regulations: The Federal rules restrict any use of the information to criminally investigate or prosecute any alcohol or drug abuse patient.[facility] HospitalIn the event this information is protected by the Federal Confidentiality of Alcohol and Drug Abuse Patient Records regulations: The Federal rules restrict any use of the information to criminally investigate or prosecute any alcohol or drug abuse patient.[facility] HospitalIn the event this information is protected by the Federal Confidentiality of Alcohol and Drug Abuse Patient Records regulations: The Federal rules restrict any use of the information to criminally investigate or prosecute any alcohol or drug abuse patient.[facility] HospitalIn the event this information is protected by the Federal Confidentiality of Alcohol and Drug Abuse Patient Records regulations: The Federal rules restrict any use of the information to criminally investigate or prosecute any alcohol or drug abuse patient.[facility] HospitalIn the event this information is protected by the Federal Confidentiality of Alcohol and Drug Abuse Patient Records regulations: The Federal rules restrict any use of the information to criminally investigate or prosecute any alcohol or drug abuse patient.[facility] HospitalIn the event this information is protected by the Federal Confidentiality of Alcohol and Drug Abuse Patient Records regulations: The Federal rules restrict any use of the information to criminally investigate or prosecute any alcohol or drug abuse patient.[facility] HospitalIn the event this information is protected by the Federal Confidentiality of Alcohol and Drug Abuse Patient Records regulations: The Federal rules restrict any use of the information to criminally investigate or prosecute any alcohol or drug abuse patient.[facility] HospitalIn the event this information is protected by the Federal Confidentiality of Alcohol and Drug Abuse Patient Records regulations: The Federal rules restrict any use of the information to criminally investigate or prosecute any alcohol or drug abuse patient.[facility] HospitalIn the event this information is protected by the Federal Confidentiality of Alcohol and Drug Abuse Patient Records regulations: The Federal rules restrict any use of the information to criminally investigate or prosecute any alcohol or drug abuse patient.[facility] HospitalIn the event this information is protected by the Federal Confidentiality of Alcohol and Drug Abuse Patient Records regulations: The Federal rules restrict any use of the information to criminally investigate or prosecute any alcohol or drug abuse patient.[facility] HospitalIn the event this information is protected by the Federal Confidentiality of Alcohol and Drug Abuse Patient Records regulations: The Federal rules restrict any use of the information to criminally investigate or prosecute any alcohol or drug abuse patient.[facility] HospitalIn the event this information is protected by the Federal Confidentiality of Alcohol and Drug Abuse Patient Records regulations: The Federal rules restrict any use of the information to criminally investigate or prosecute any alcohol or drug abuse patient.[facility] HospitalIn the event this information is protected by the Federal Confidentiality of Alcohol and Drug Abuse Patient Records regulations: The Federal rules restrict any use of the information to criminally investigate or prosecute any alcohol or drug abuse patient.[facility] HospitalIn the event this information is protected by the Federal Confidentiality of Alcohol and Drug Abuse Patient Records regulations: The Federal rules restrict any use of the information to criminally investigate or prosecute any alcohol or drug abuse patient.[facility] HospitalIn the event this information is protected by the Federal Confidentiality of Alcohol and Drug Abuse Patient Records regulations: The Federal rules restrict any use of the information to criminally investigate or prosecute any alcohol or drug abuse patient.[facility] HospitalIn the event this information is protected by the Federal Confidentiality of Alcohol and Drug Abuse Patient Records regulations: The Federal rules restrict any use of the information to criminally investigate or prosecute any alcohol or drug abuse patient.[facility] HospitalIn the event this information is protected by the Federal Confidentiality of Alcohol and Drug Abuse Patient Records regulations: The Federal rules restrict any use of the information to criminally investigate or prosecute any alcohol or drug abuse patient.[facility] HospitalIn the event this information is protected by the Federal Confidentiality of Alcohol and Drug Abuse Patient Records regulations: The Federal rules restrict any use of the information to criminally investigate or prosecute any alcohol or drug abuse patient.[facility] HospitalIn the event this information is protected by the Federal Confidentiality of Alcohol and Drug Abuse Patient Records regulations: The Federal rules restrict any use of the information to criminally investigate or prosecute any alcohol or drug abuse patient.[facility] HospitalIn the event this information is protected by the Federal Confidentiality of Alcohol and Drug Abuse Patient Records regulations: The Federal rules restrict any use of the information to criminally investigate or prosecute any alcohol or drug abuse patient.[facility] HospitalIn the event this information is protected by the Federal Confidentiality of Alcohol and Drug Abuse Patient Records regulations: The Federal rules restrict any use of the information to criminally investigate or prosecute any alcohol or drug abuse patient.[facility] HospitalIn the event this information is protected by the Federal Confidentiality of Alcohol and Drug Abuse Patient Records regulations: The Federal rules restrict any use of the information to criminally investigate or prosecute any alcohol or drug abuse patient.[facility] HospitalIn the event this information is protected by the Federal Confidentiality of Alcohol and Drug Abuse Patient Records regulations: The Federal rules restrict any use of the information to criminally investigate or prosecute any alcohol or drug abuse patient.[facility] HospitalIn the event this information is protected by the Federal Confidentiality of Alcohol and Drug Abuse Patient Records regulations: The Federal rules restrict any use of the information to criminally investigate or prosecute any alcohol or drug abuse patient.[facility] HospitalIn the event this information is protected by the Federal Confidentiality of Alcohol and Drug Abuse Patient Records regulations: The Federal rules restrict any use of the information to criminally investigate or prosecute any alcohol or drug abuse patient.[facility] HospitalIn the event this information is protected by the Federal Confidentiality of Alcohol and Drug Abuse Patient Records regulations: The Federal rules restrict any use of the information to criminally investigate or prosecute any alcohol or drug abuse patient.[facility] HospitalIn the event this information is protected by the Federal Confidentiality of Alcohol and Drug Abuse Patient Records regulations: The Federal rules restrict any use of the information to criminally investigate or prosecute any alcohol or drug abuse patient.[facility] HospitalIn the event this information is protected by the Federal Confidentiality of Alcohol and Drug Abuse Patient Records regulations: The Federal rules restrict any use of the information to criminally investigate or prosecute any alcohol or drug abuse patient.[facility] HospitalIn the event this information is protected by the Federal Confidentiality of Alcohol and Drug Abuse Patient Records regulations: The Federal rules restrict any use of the information to criminally investigate or prosecute any alcohol or drug abuse patient.[facility] HospitalIn the event this information is protected by the Federal Confidentiality of Alcohol and Drug Abuse Patient Records regulations: The Federal rules restrict any use of the information to criminally investigate or prosecute any alcohol or drug abuse patient.[facility] HospitalIn the event this information is protected by the Federal Confidentiality of Alcohol and Drug Abuse Patient Records regulations: The Federal rules restrict any use of the information to criminally investigate or prosecute any alcohol or drug abuse patient.[facility] HospitalIn the event this information is protected by the Federal Confidentiality of Alcohol and Drug Abuse Patient Records regulations: The Federal rules restrict any use of the information to criminally investigate or prosecute any alcohol or drug abuse patient.[facility] HospitalIn the event this information is protected by the Federal Confidentiality of Alcohol and Drug Abuse Patient Records regulations: The Federal rules restrict any use of the information to criminally investigate or prosecute any alcohol or drug abuse patient.[facility] HospitalIn the event this information is protected by the Federal Confidentiality of Alcohol and Drug Abuse Patient Records regulations: The Federal rules restrict any use of the information to criminally investigate or prosecute any alcohol or drug abuse patient.[facility] HospitalIn the event this information is protected by the Federal Confidentiality of Alcohol and Drug Abuse Patient Records regulations: The Federal rules restrict any use of the information to criminally investigate or prosecute any alcohol or drug abuse patient.[facility] HospitalIn the event this information is protected by the Federal Confidentiality of Alcohol and Drug Abuse Patient Records regulations: The Federal rules restrict any use of the information to criminally investigate or prosecute any alcohol or drug abuse patient.[facility] HospitalIn the event this information is protected by the Federal Confidentiality of Alcohol and Drug Abuse Patient Records regulations: The Federal rules restrict any use of the information to criminally investigate or prosecute any alcohol or drug abuse patient.[facility] HospitalIn the event this information is protected by the Federal Confidentiality of Alcohol and Drug Abuse Patient Records regulations: The Federal rules restrict any use of the information to criminally investigate or prosecute any alcohol or drug abuse patient.[facility] HospitalIn the event this information is protected by the Federal Confidentiality of Alcohol and Drug Abuse Patient Records regulations: The Federal rules restrict any use of the information to criminally investigate or prosecute any alcohol or drug abuse patient.[facility] HospitalIn the event this information is protected by the Federal Confidentiality of Alcohol and Drug Abuse Patient Records regulations: The Federal rules restrict any use of the information to criminally investigate or prosecute any alcohol or drug abuse patient.[facility] HospitalIn the event this information is protected by the Federal Confidentiality of Alcohol and Drug Abuse Patient Records regulations: The Federal rules restrict any use of the information to criminally investigate or prosecute any alcohol or drug abuse patient.[facility] HospitalIn the event this information is protected by the Federal Confidentiality of Alcohol and Drug Abuse Patient Records regulations: The Federal rules restrict any use of the information to criminally investigate or prosecute any alcohol or drug abuse patient.[facility] HospitalIn the event this information is protected by the Federal Confidentiality of Alcohol and Drug Abuse Patient Records regulations: The Federal rules restrict any use of the information to criminally investigate or prosecute any alcohol or drug abuse patient.[facility] HospitalIn the event this information is protected by the Federal Confidentiality of Alcohol and Drug Abuse Patient Records regulations: The Federal rules restrict any use of the information to criminally investigate or prosecute any alcohol or drug abuse patient.[facility] HospitalIn the event this information is protected by the Federal Confidentiality of Alcohol and Drug Abuse Patient Records regulations: The Federal rules restrict any use of the information to criminally investigate or prosecute any alcohol or drug abuse patient.[facility] HospitalIn the event this information is protected by the Federal Confidentiality of Alcohol and Drug Abuse Patient Records regulations: The Federal rules restrict any use of the information to criminally investigate or prosecute any alcohol or drug abuse patient.[facility] HospitalIn the event this information is protected by the Federal Confidentiality of Alcohol and Drug Abuse Patient Records regulations: The Federal rules restrict any use of the information to criminally investigate or prosecute any alcohol or drug abuse patient.[facility] HospitalIn the event this information is protected by the Federal Confidentiality of Alcohol and Drug Abuse Patient Records regulations: The Federal rules restrict any use of the information to criminally investigate or prosecute any alcohol or drug abuse patient.[facility] HospitalIn the event this information is protected by the Federal Confidentiality of Alcohol and Drug Abuse Patient Records regulations: The Federal rules restrict any use of the information to criminally investigate or prosecute any alcohol or drug abuse patient.[facility] HospitalIn the event this information is protected by the Federal Confidentiality of Alcohol and Drug Abuse Patient Records regulations: The Federal rules restrict any use of the information to criminally investigate or prosecute any alcohol or drug abuse patient.[facility] HospitalIn the event this information is protected by the Federal Confidentiality of Alcohol and Drug Abuse Patient Records regulations: The Federal rules restrict any use of the information to criminally investigate or prosecute any alcohol or drug abuse patient.[facility] HospitalIn the event this information is protected by the Federal Confidentiality of Alcohol and Drug Abuse Patient Records regulations: The Federal rules restrict any use of the information to criminally investigate or prosecute any alcohol or drug abuse patient.[facility] HospitalIn the event this information is protected by the Federal Confidentiality of Alcohol and Drug Abuse Patient Records regulations: The Federal rules restrict any use of the information to criminally investigate or prosecute any alcohol or drug abuse patient.[facility] HospitalIn the event this information is protected by the Federal Confidentiality of Alcohol and Drug Abuse Patient Records regulations: The Federal rules restrict any use of the information to criminally investigate or prosecute any alcohol or drug abuse patient.[facility] HospitalIn the event this information is protected by the Federal Confidentiality of Alcohol and Drug Abuse Patient Records regulations: The Federal rules restrict any use of the information to criminally investigate or prosecute any alcohol or drug abuse patient.[facility] HospitalIn the event this information is protected by the Federal Confidentiality of Alcohol and Drug Abuse Patient Records regulations: The Federal rules restrict any use of the information to criminally investigate or prosecute any alcohol or drug abuse patient.[facility] HospitalIn the event this information is protected by the Federal Confidentiality of Alcohol and Drug Abuse Patient Records regulations: The Federal rules restrict any use of the information to criminally investigate or prosecute any alcohol or drug abuse patient.[facility] HospitalIn the event this information is protected by the Federal Confidentiality of Alcohol and Drug Abuse Patient Records regulations: The Federal rules restrict any use of the information to criminally investigate or prosecute any alcohol or drug abuse patient.[facility] HospitalIn the event this information is protected by the Federal Confidentiality of Alcohol and Drug Abuse Patient Records regulations: The Federal rules restrict any use of the information to criminally investigate or prosecute any alcohol or drug abuse patient.[facility] HospitalIn the event this information is protected by the Federal Confidentiality of Alcohol and Drug Abuse Patient Records regulations: The Federal rules restrict any use of the information to criminally investigate or prosecute any alcohol or drug abuse patient.[facility] HospitalIn the event this information is protected by the Federal Confidentiality of Alcohol and Drug Abuse Patient Records regulations: The Federal rules restrict any use of the information to criminally investigate or prosecute any alcohol or drug abuse patient.[facility] HospitalIn the event this information is protected by the Federal Confidentiality of Alcohol and Drug Abuse Patient Records regulations: The Federal rules restrict any use of the information to criminally investigate or prosecute any alcohol or drug abuse patient.[facility] HospitalIn the event this information is protected by the Federal Confidentiality of Alcohol and Drug Abuse Patient Records regulations: The Federal rules restrict any use of the information to criminally investigate or prosecute any alcohol or drug abuse patient.[facility] HospitalIn the event this information is protected by the Federal Confidentiality of Alcohol and Drug Abuse Patient Records regulations: The Federal rules restrict any use of the information to criminally investigate or prosecute any alcohol or drug abuse patient.[facility] HospitalIn the event this information is protected by the Federal Confidentiality of Alcohol and Drug Abuse Patient Records regulations: The Federal rules restrict any use of the information to criminally investigate or prosecute any alcohol or drug abuse patient.[facility] HospitalIn the event this information is protected by the Federal Confidentiality of Alcohol and Drug Abuse Patient Records regulations: The Federal rules restrict any use of the information to criminally investigate or prosecute any alcohol or drug abuse patient.[facility] HospitalIn the event this information is protected by the Federal Confidentiality of Alcohol and Drug Abuse Patient Records regulations: The Federal rules restrict any use of the information to criminally investigate or prosecute any alcohol or drug abuse patient.[facility] HospitalIn the event this information is protected by the Federal Confidentiality of Alcohol and Drug Abuse Patient Records regulations: The Federal rules restrict any use of the information to criminally investigate or prosecute any alcohol or drug abuse patient.[facility] HospitalIn the event this information is protected by the Federal Confidentiality of Alcohol and Drug Abuse Patient Records regulations: The Federal rules restrict any use of the information to criminally investigate or prosecute any alcohol or drug abuse patient.[facility] HospitalIn the event this information is protected by the Federal Confidentiality of Alcohol and Drug Abuse Patient Records regulations: The Federal rules restrict any use of the information to criminally investigate or prosecute any alcohol or drug abuse patient.[facility] HospitalIn the event this information is protected by the Federal Confidentiality of Alcohol and Drug Abuse Patient Records regulations: The Federal rules restrict any use of the information to criminally investigate or prosecute any alcohol or drug abuse patient.[facility] HospitalIn the event this information is protected by the Federal Confidentiality of Alcohol and Drug Abuse Patient Records regulations: The Federal rules restrict any use of the information to criminally investigate or prosecute any alcohol or drug abuse patient.[facility] HospitalIn the event this information is protected by the Federal Confidentiality of Alcohol and Drug Abuse Patient Records regulations: The Federal rules restrict any use of the information to criminally investigate or prosecute any alcohol or drug abuse patient.[facility] HospitalIn the event this information is protected by the Federal Confidentiality of Alcohol and Drug Abuse Patient Records regulations: The Federal rules restrict any use of the information to criminally investigate or prosecute any alcohol or drug abuse patient.[facility] HospitalIn the event this information is protected by the Federal Confidentiality of Alcohol and Drug Abuse Patient Records regulations: The Federal rules restrict any use of the information to criminally investigate or prosecute any alcohol or drug abuse patient.[facility] HospitalIn the event this information is protected by the Federal Confidentiality of Alcohol and Drug Abuse Patient Records regulations: The Federal rules restrict any use of the information to criminally investigate or prosecute any alcohol or drug abuse patient.[facility] HospitalIn the event this information is protected by the Federal Confidentiality of Alcohol and Drug Abuse Patient Records regulations: The Federal rules restrict any use of the information to criminally investigate or prosecute any alcohol or drug abuse patient.[facility] HospitalIn the event this information is protected by the Federal Confidentiality of Alcohol and Drug Abuse Patient Records regulations: The Federal rules restrict any use of the information to criminally investigate or prosecute any alcohol or drug abuse patient.[facility] HospitalIn the event this information is protected by the Federal Confidentiality of Alcohol and Drug Abuse Patient Records regulations: The Federal rules restrict any use of the information to criminally investigate or prosecute any alcohol or drug abuse patient.[facility] HospitalIn the event this information is protected by the Federal Confidentiality of Alcohol and Drug Abuse Patient Records regulations: The Federal rules restrict any use of the information to criminally investigate or prosecute any alcohol or drug abuse patient.[facility] HospitalIn the event this information is protected by the Federal Confidentiality of Alcohol and Drug Abuse Patient Records regulations: The Federal rules restrict any use of the information to criminally investigate or prosecute any alcohol or drug abuse patient.[facility] HospitalIn the event this information is protected by the Federal Confidentiality of Alcohol and Drug Abuse Patient Records regulations: The Federal rules restrict any use of the information to criminally investigate or prosecute any alcohol or drug abuse patient.[facility] HospitalIn the event this information is protected by the Federal Confidentiality of Alcohol and Drug Abuse Patient Records regulations: The Federal rules restrict any use of the information to criminally investigate or prosecute any alcohol or drug abuse patient.[facility] HospitalIn the event this information is protected by the Federal Confidentiality of Alcohol and Drug Abuse Patient Records regulations: The Federal rules restrict any use of the information to criminally investigate or prosecute any alcohol or drug abuse patient.[facility] HospitalIn the event this information is protected by the Federal Confidentiality of Alcohol and Drug Abuse Patient Records regulations: The Federal rules restrict any use of the information to criminally investigate or prosecute any alcohol or drug abuse patient.[facility] HospitalIn the event this information is protected by the Federal Confidentiality of Alcohol and Drug Abuse Patient Records regulations: The Federal rules restrict any use of the information to criminally investigate or prosecute any alcohol or drug abuse patient.[facility] HospitalIn the event this information is protected by the Federal Confidentiality of Alcohol and Drug Abuse Patient Records regulations: The Federal rules restrict any use of the information to criminally investigate or prosecute any alcohol or drug abuse patient.[facility] HospitalIn the event this information is protected by the Federal Confidentiality of Alcohol and Drug Abuse Patient Records regulations: The Federal rules restrict any use of the information to criminally investigate or prosecute any alcohol or drug abuse patient.[facility] HospitalIn the event this information is protected by the Federal Confidentiality of Alcohol and Drug Abuse Patient Records regulations: The Federal rules restrict any use of the information to criminally investigate or prosecute any alcohol or drug abuse patient.[facility] Reason for Visit (unrecogniz ed section and content) Reason Comments Follow Up Hip Replacement Post Op Reason Comments Acute Visit whoosing feeling in my head; recently tapered off of antidepressants; bp is running high Reason Comments Rec'd fax from [facility] records scanned in to chart Reason Comments New Patient Evaluation Stroke Reason Comments Derm Problem Growth on nose for r emoval Reason Comments Blood Pressure Check Reason Comments OTHER [facility] Pt Calling Reason Comments Follow Up Reason Comments Consult colonoscopy Specialty Diagnoses / Procedures Referred By Contac t Referred To Contact General Surgery Diagnoses Screening for colon cancer Procedures CONSULT TO GENERAL SURGERY OFFICE/OUTPATIENT NEW HIGH MDM 60-74 MINUTES Myah Arteaga MD [address] [place] [address] Referral ID Status Reason Start Date Expiration Date Visits Requested Visits Authorized [id number] Pending Review PCP Requested Referral 04/27/2022 04/27/2023 1 1 Reason Comments Results Colonoscopy results Reason Onset Date Comments Refill Request 06/27/2022 Reason Comments Established Patient Follow Up Post Op Hip Replacement Specialty Diagnoses / Procedures Referred By Contact Referred To Contact Orthopedics / ORTHOPAEDIC SURGERY Diagnoses dos: 12/03/2021 L-JENNIFER ([facility]) Procedures LORRI ESTABLISH Hesham Koch APRN.[address] [address] Hesham Koch APRN[address] [address] Referral ID Status Reason Start Date Expiration Date Visits Re quested Visits Authorized [id number] Closed 08/04/2022 08/04/2022 1 1 Specialty Diagnoses / Procedures Referred By Contac t Referred To Contact Radiology / [facility] Diagnoses L hip Procedures XR LORRI GENERAL None, None [facility] [address] [address] Referral ID Status Reason Start Date Expiration Date Visits Re quested Visits Authorized [id number] Closed 08/04/2022 08/04/2022 1 1 Reason Comments 06/09/[address] Payne Reason Comments 6 Month Exam Reason Onset Date Comments Refill Request 12/12/2022 Reason Comments Hearing Loss Specialty Diagnoses / Procedures Referred By Contac t Referred To Contact Ent - Otolaryngology Diagnoses Bilateral hearing loss, unspecified hearing loss type Procedures CONSULT TO ENT OFFICE/OUTPATIENT NEW HIGH MDM 60-74 MINUTES Myah Arteaga MD [address] [place] [address] Referral ID Status Reason Start Date Expiration Date Visits Requested Visits Authorized [id number] Pending Review PCP Requested Referral 12/09/2022 12/09/2023 1 1 Reason Comments Throat Problem Reason Comments Consult Hearing loss- review audiogram from 12/13/22, c/o choking with eating/ hoarseness- sx for the last couple of years Reason Comments Pre-Op Visit Reason Comments Speech Instrumental Swallow Eval Speech Discharge Specialty Diagnoses / Procedures Referred By Contac t Referred To Contact XR IMAGING Diagnoses Dysphagia, unspecified type Procedures XR MODIFIED BARIUM SWALLOW W SPEECH THERAPY RADIOLOGIC EXAM SWALLOW FUNCTION CONTRAST STUDY Cynthia Varner MD [address] [place] [address] Xr Imaging Referral ID Status Reason Start Date Expiration Date V isits Requested Visits Authorized [id number] Closed Auto-Generate d Referral 01/10/2023 02/09/2024 1 1 Reason Comments Orders Reason Comments Imm/Inj Reason Comments Appointment Reason Comments Results Reason Comments Insurance Authorization Cialis Reason Comments 6 Month Exam Reason Comments Rash Reason Comments Orders Specialty Diagnoses / Procedures Referred By Contac t Referred To Contact MR IMAGING Diagnoses Soft tissue mass Procedures MRI LUMBAR SPINE WO/W IVCON MRI SPINAL CANAL LUMBAR W/O & W/CONTR Myah Dacosta MD [address] [place] [address] [place] [address] Referral ID Status Reason Start Date Expiration Date Visits Requested Visits Authorized [id number] Authorized Auto-Generat ed Referral 01/26/2024 02/24/2025 1 1 Specialty Diagnoses / Procedures Referred By Contac t Referred To Contact MR IMAGING Diagnoses Soft tissue mass Upper back pain Procedures MRI THORACIC SPINE WO/W IVCON MRI SPINAL CANAL THORACIC W/O & W/CONTR Myah Dacosta MD [address] [place] [address] [place] [address] Referral ID Status Reason Start Date Expiration Date Visits Requested Visits Authorized [id number] Authorized Auto-Generat ed Referral 01/26/2024 02/24/2025 1 1 Reason Comments Results Reason Comments Results Also prior auth Referral ID Status Reason Start Date Expiration Date V isits Requested Visits Authorized [id number] Closed Auto-Generate d Referral 02/13/2024 03/14/2025 1 1 Reason Comments Patient Update Reason Comments New Patient Evaluation Specialty Diagnoses / Procedures Referred By Contac t Referred To Contact Diagnoses AMANDA (obstructive sleep apnea) Procedures CONSULT TO SLEEP MEDICINE - ADULT OFFICE/OUTPATIENT [facility] 60 MINUTES Myah Arteaga MD [address] [place] [address] Referral ID Status Reason Start Date Expiration Date V isits Requested Visits Authorized [id number] Closed PCP Requested Referral 12/11/2023 12/10/2024 1 1 Reason Comments Medical Weight Management Specialty Diagnoses / Procedures Referred By Contac t Referred To Contact Diagnoses BMI 45.0-49.9, adult (HCC) Procedures ENDOCRINE MEDICAL WEIGHT MANAGEMENT OFFICE/OUTPATIENT [facility] 60 MINUTES Myah Arteaga MD [address] [place] [address] Referral ID Status Reason Start Date Expiration Date V isits Requested Visits Authorized [id number] Closed PCP Requested Referral 01/11/2024 01/10/2025 1 1 Reason Comments Results Specialty Diagnoses / Procedures Referred By Contac t Referred To Contact MR IMAGING Diagnoses Other specified disorders of kidney and ureter Procedures MRI KIDNEY WO/W IVCON MRI ABDOMEN W/O & W/CONTRAST MATERIAL Myah Arteaga MD [address] [place] [address] [place] [address] Referral ID Status Reason Start Date Expiration Date V isits Requested Visits Authorized [id number] Closed Auto-Generate d Referral 02/28/2024 10/29/2024 1 1 Reason Comments Consult Proteinuria Specialty Diagnoses / Procedures Referred By Contac t Referred To Contact Nephrology Diagnoses Proteinuria, unspecified type Procedures CONSULT TO NEPHROLOGY OFFICE/OUTPATIENT [facility] 60 MINUTES Myah Arteaga MD [address] [place] [address] Referral ID Status Reason Start Date Expiration Date V isits Requested Visits Authorized [id number] Closed PCP Requested Referral 02/16/2024 02/15/2025 1 1 Reason Comments [facility]are-[facility] Equipment confirmation Reason Onset Date Comments Escalation of Care Escalation of Care 07/06/2024 Reason Comments Cough Covid19 Concern Reason Comments Chest Congestion X5 days, cough, SOB Reason Comments Patient Question Reason Comments Recheck Follow up pneumonia- not feeling any better Reason Onset Date Comments Transition Of Care 07/22/2024 Reason Comments Hospital F/U [facility] 07/17-07/19 Covid, Hypoxia Specialty Diagnoses / Procedures Referred By Contac t Referred To Contact Family Medicine / FAMILY MEDICINE Diagnoses COVID-19 [facility] Hosp F/U 07/17/24-07/19/ Covid, Hypoxia Procedures OFFICE/OUTPATIENT ESTABLISHED MOD MDM 30 MIN 4C EST HOSP/ER FU Tara Hilliard, SHIFT BOSS.LEATHER SORTER [address] [place] [address] [facility] [address] [place] [address] Referral ID Status Reason Start Date Expiration Date Visits Re quested Visits Authorized [id number] Closed 07/23/2024 10/29/2024 1 1 Reason Comments Radio Gen RMP Specialty Diagnoses / Procedures Referred By Contac t Referred To Contact XR IMAGING Diagnoses Post-traumatic osteoarthritis of left hip Procedures XR KNEE POST OP 3V AP/LAT/MERCHANT LEFT X-RAY KNEE 3+ VW Dawit Carrillo MD [address] [place] [address] Referral ID Status Reason Start Date Expiration Date V isits Requested Visits Authorized [id number] Closed Auto-Generate d Referral 11/12/2021 12/12/2022 1 [address] Specialty Diagnoses / Procedures Referred By Contac t Referred To Contact CT IMAGING Diagnoses COVID-19 Acute respiratory failure with hypoxia (HCC) Procedures CT CHEST W IVCON DIAGNOSTIC COMPUTED TOMOGRAPHY THORAX W/CONTRAST Tara Hilliard, SHIFT BOSS.LEATHER SORTER [address] [place] [address] Ct Imaging [facility] Referral ID Status Reason Start Date Expiration Date V isits Requested Visits Authorized [id number] Closed Auto-Generate d Referral 07/30/2024 10/29/2024 1 1 Reason Comments Follow Up 2 week pneumonia/Cov id follow up Specialty Diagnoses / Procedures Referred By Contac t Referred To Contact Family Medicine / FAMILY MEDICINE Diagnoses Pneumonia 2 week covid/pnuemonia f/u Procedures OFFICE/OUTPATIENT ESTABLISHED MOD MDM 30 MIN 4C EST Tara Hilliard, SHIFT BOSS.LEATHER SORTER [address] [place] [phone] [facility] [address] [place] [address] Referral ID Status Reason Start Date Expiration Date Visits Re quested Visits Authorized [id number] Closed 08/06/2024 10/29/2024 1 1 Reason Onset Date Comments Refill Request 08/14/2024 Reason Comments Spirometry Specialty Diagnoses / Procedures Referred By Contac t Referred To Contact [facility] Diagnoses Moderate persistent reactive airway disease with wheezing without complication Procedures SPIROMETRY WITH DILATOR IF OBSTRUCTED BRNCDILAT RSPSE SPMTRY PRE&POST-BRNCDILAT ADMN Tara Hilliard, SH[employer] BOSS.LEATHER SORTER [address] [place] [phone] [facility] [address] [place] [id number] Referral ID Status Reason Start Date Expiration Date V isits Requested Visits Authorized [id number] Closed Auto-Generate d Referral 08/15/2024 10/29/2024 1 1 Reason Comments medication clarification Reason Comments pharmacy asking to change rx Specialty Diagnoses / Procedures Referred By Contac t Referred To Contact [facility] Diagnoses Cough, unspecified type Procedures NITRIC OXIDE, EXHALED NITRIC OXIDE GAS DETERMINATION Lacy Kessler MD [address] [place] [phone] [facility] [address] [place] [id number] Referral ID Status Reason Start Date Expiration Date V isits Requested Visits Authorized [id number] Closed Clearance Not Met -Financial Clearance Bypassed 10/01/2024 10/29/2024 1 1 Reason Comments New Patient Asthma Cough Reason Comments CARD New Patient Consult Specialty Diagnoses / Procedures Referred By Contac t Referred To Contact Cardiology Diagnoses Coronary artery calcification Procedures CONSULT TO CARDIOLOGY OFFICE/OUTPATIENT [facility] 60 MINUTES Lacy Kessler MD [address] [place] [address] Referral ID Status Reason Start Date Expiration Date V isits Requested Visits Authorized [id number] Closed PCP Requested Referral 10/01/2024 10/01/2025 1 1 Reason Comments Radiology NM Specialty Diagnoses / Procedures Referred By Contac t Referred To Contact MOLECULAR & FUNCTIONAL IMAGING Diagnoses Coronary artery calcification Other chest pain Procedures NM CARDIAC PERF STRESS/PHARM MYOCARDIAL SPECT MULTIPLE STUDIES Layla Lewis MD [address] [place] [address] Molecular & Functional Imaging [address] [place] [address] Referral ID Status Reason Start Date Expiration Date V isits Requested Visits Authorized [id number] Closed Auto-Generate d Referral 10/03/2024 11/02/2025 1 1 Reason Comments Rib Injury left side bottom of rib pain x 5 days, was doing donna and leaned over and crate Reason Comments Pharmacy Call Reason Comments Lidocaine Reason Comments Refill Request Reason Comments LESION, SKIN Lesion on back Reason Onset Date Comments Refill Request 05/06/2025 Reason Comments Consult Skin lesion on back Specialty Diagnoses / Procedures Referred By Contac t Referred To Contact General Surgery Diagnoses Neoplasm of skin Procedures CONSULT TO GENERAL SURGERY OFFICE/OUTPATIENT [facility] 60 MINUTES Tara Hilliard, SHIFT BOSS.LEATHER SORTER [address] [place] [address] Phone: tel: fax: Referral ID Status Reason Start Date Expiration Date V isits Requested Visits Authorized [id number] Closed PCP Requested Referral 05/02/2025 05/01/2026 1 1 Reason Comments Card follow up 7 months Specialty Diagnoses / Procedures Referred By Contac t Referred [facility] Contact [facility] Diagnoses Other chest pain Coronary artery calcification Essential hypertension Procedures ECG COMPLETE ECG ROUTINE ECG W/LEAST 12 LDS W/I&R Layla Lewis MD [address] [place] [address] Phone: tel: fax: [facility] [address] [place] [address] Referral ID Status Reason Start Date Expiration Date V isits Requested Visits Authorized [id number] Closed Auto-Generate d Referral 05/29/2025 05/29/2026 1 1 Reason Comments Consult Excision skin lesion Reason Onset Date Comments Refill Request 07/03/2025 Reason Comments Insurance Authorization Reason Comments Medical Weight Management Reason Comments Medication Preauthorization tirzepatide, weight loss (ZEPBOUND) 2.5 mg/0.5 mL solution Care Teams (unrecognized sec tion and content) Invisible Braces Orthodontist Relationship Specialty Start Date End Date Myah Arteaga MD [address] [place], [place] [id number] PCP - General Family Practice 10/08/12 Dawit Carrillo MD [facility] [address] [id number] Home Care Physician Orthopedics 12/07/21 Dawit Carrillo MD [facility] [address] [id number] Referring Orthopedics 12/07/21 Megan Leon, PT [address] [place] [address] [employer] Specialist Post Acute Care 12/07/21 Invisible Braces Orthodontist Relationship Specialty Start Date End Date Myah Arteaga MD [address] [place], [place] [id number] PCP - General Family Practice 10/08/12 Dawit Carrillo MD [facility] [address] [id number] Home Care Physician Orthopedics 12/07/21 Dawit Carrillo MD [facility] [address] [address] Referring Orthopedics 12/07/21 Megan Leon, PT [address] [place] [address] [employer] Specialist Post Acute Care 12/07/21 Invisible Braces Orthodontist Relationship Specialty Start Date End Date Myah Arteaga MD [address] [place] [address] PCP - General Family Practice 10/08/12 Dawit Carrillo MD [address] [address] Home Care Physician Orthopedics 12/07/21 Dawit Carrillo MD [address] [address] Referring Orthopedics 12/07/21 Megan Leon, PT [address] [place] [address] [employer] Specialist Post Acute Care 12/07/21 Invisible Braces Orthodontist Relationship Specialty Start Date End Date Myah Arteaga MD [address] [place] [address] PCP - General Family Practice 10/08/12 Dawit Carrillo MD [address] [address] Home Care Physician Orthopedics 12/07/21 Dawit Carrillo MD [address] [address] Referring Orthopedics 12/07/21 Megan Leon, PT [address] [place] [address] [employer] Specialist Post Acute Care 12/07/21 Invisible Braces Orthodontist Relationship Specialty Start Date End Date Myah Arteaga MD [address] [place] [address] PCP - General Family Practice 10/08/12 Dawit Carrillo MD [address] [address] Home Care Physician Orthopedics 12/07/21 Dawit Carrillo MD [address] [address] Referring Orthopedics 12/07/21 Megan Leon, PT [address] [place] [address] [employer] Specialist Post Acute Care 12/07/21 Invisible Braces Orthodontist Relationship Specialty Start Date End Date Myah Arteaga MD [address] [place] [address] PCP - General Family Practice 10/08/12 Dawit Carrillo MD [address] [address] Home Care Physician Orthopedics 12/07/21 Dawit Carrillo MD [address] [address] Referring Orthopedics 12/07/21 Megan Leon, PT [address] [place] [address] [employer] Specialist Post Acute Care 12/07/21 Invisible Braces Orthodontist Relationship Specialty Start Date End Date Myah Arteaga MD [address] [place] [address] PCP - General Family Practice 10/08/12 Dawit Carrillo MD [address] [address] Home Care Physician Orthopedics 12/07/21 Dawit Carrillo MD [address] [address] Referring Orthopedics 12/07/21 Megan Leon, PT [address] [place] [address] [employer] Specialist Post Acute Care 12/07/21 Invisible Braces Orthodontist Relationship Specialty Start Date End Date Myah Arteaga MD [address] [place] [address] PCP - General Family Practice 10/08/12 Dawit Carrillo MD [facility] [address] [address] Home Care Physician Orthopedics 12/07/21 Dawit Carrillo MD [address] [place] [address] Referring Orthopedics 12/07/21 Megan Leon, PT [address] [place] [address] [employer] Specialist Post Acute Care 12/07/21 Invisible Braces Orthodontist Relationship Specialty Start Date End Date Myah Arteaga MD [address] [place] [address] PCP - General Family Practice 10/08/12 Dawit Carrillo MD [facility] [address] [address] Home Care Physician Orthopedics 12/07/21 Dawit Carrillo MD [address] [place] [address] Referring Orthopedics 12/07/21 Megan Leon, PT [address] [place] [address] [employer] Specialist Post Acute Care 12/07/21 Invisible Braces Orthodontist Relationship Specialty Start Date End Date Myah Arteaga MD [address] [place] [address] PCP - General Family Practice 10/08/12 Dawit Carrillo MD [address] [address] Home Care Physician Orthopedics 12/07/21 Dawit Carrillo MD [address] [address] Referring Orthopedics 12/07/21 Megan Leon, PT [address] [place] [address] [employer] Specialist Post Acute Care 12/07/21 Invisible Braces Orthodontist Relationship Specialty Start Date End Date Myah Arteaga MD [address] [place] [address] PCP - General Family Practice 10/08/12 Dawit Carrillo MD [address] [address] Home Care Physician Orthopedics 12/07/21 Dawit Carrillo MD [address] [address] Referring Orthopedics 12/07/21 Megan Leon, PT [address] [place] [address] [employer] Specialist Post Acute Care 12/07/21 Invisible Braces Orthodontist Relationship Specialty Start Date End Date Myah Arteaga MD [address] [place] [address] PCP - General Family Practice 10/08/12 Dawit Carrillo MD [address] [address] Home Care Physician Orthopedics 12/07/21 Dawit Carrillo MD [address] [address] Referring Orthopedics 12/07/21 Megan Leon, PT [address] [place] [address] [employer] Specialist Post Acute Care 12/07/21 Invisible Braces Orthodontist Relationship Specialty Start Date End Date Myah Arteaga MD [address] [place] [address] PCP - General Family Medicine 10/08/12 Dawit Carrillo MD [facility] [address] [address] Home Care Provider Orthopedics 12/07/21 Dawit Carrillo MD [facility] [address] [address] Referring Orthopedics 12/07/21 Megan Leon, PT [address] [place] [address] [employer] Specialist Post Acute Care 12/07/21 Invisible Braces Orthodontist Relationship Specialty Start Date End Date Myah Arteaga MD [address] [place] [address] PCP - General Family Medicine 10/08/12 Dawit Carrillo MD [facility] [address] [address] Home Care Provider Orthopedics 12/07/21 Dawit Carrillo MD [facility] [address] [address] Referring Orthopedics 12/07/21 Megan Leon, PT [address] [place] [address] [employer] Specialist Post Acute Care 12/07/21 Invisible Braces Orthodontist Relationship Specialty Start Date End Date Myah Arteaga MD [address] [place] [address] PCP - General Family Medicine 10/08/12 Dawit Carrillo MD [address] [address] Home Care Provider Orthopedics 12/07/21 Dawit Carrillo MD [address] [address] Referring Orthopedics 12/07/21 Megan Leon, PT [address] [place] [address] [employer] Specialist Post Acute Care 12/07/21 Invisible Braces Orthodontist Relationship Specialty Start Date End Date Myah Arteaga MD [address] [place] [address] PCP - General Family Medicine 10/08/12 Dawit Carrillo MD [facility] [address] [address] Home Care Provider Orthopedics 12/07/21 Dawit Carrillo MD [address] [address] Referring Orthopedics 12/07/21 Megan Leon, PT [address] [place] [address] [employer] Specialist Post Acute Care 12/07/21 Invisible Braces Orthodontist Relationship Specialty Start Date End Date Myah Arteaga MD [address] [place] [address] PCP - General Family Medicine 10/08/12 Dawit Carrillo MD [address] [address] Home Care Provider Orthopedics 12/07/21 Dawit Carrillo MD [address] [address] Referring Orthopedics 12/07/21 Megan Leon, PT [address] [place] [address] [employer] Specialist Post Acute Care 12/07/21 Invisible Braces Orthodontist Relationship Specialty Start Date End Date Myah Arteaga MD [address] [place] [address] PCP - General Family Medicine 10/08/12 Dawit Carrillo MD [address] [address] Home Care Provider Orthopedics 12/07/21 Dawit Carrillo MD [address] [address] Referring Orthopedics 12/07/21 Megan Leon, PT [address] [place] [address] [employer] Specialist Post Acute Care 12/07/21 Invisible Braces Orthodontist Relationship Specialty Start Date End Date Myah Arteaga MD [address] [place] [address] PCP - General Family Medicine 10/08/12 Dawit Carrillo MD [facility] [address] [address] Home Care Provider Orthopedics 12/07/21 Dawit Carrillo MD [address] [address] Referring Orthopedics 12/07/21 Megan Leon, PT [address] [place] [address] [employer] Operations Specialist Post Acute Care 12/07/21 Invisible Braces Orthodontist Relationship Specialty Start Date End Date Myah Arteaga MD [address] [place] [address] PCP - General Family Medicine 10/08/12 Dawit Carrillo MD [address] [address] Home Care Provider Orthopedics 12/07/21 Dawit Carrillo MD [facility] [address] [address] Referring Orthopedics 12/07/21 Megan Leon, PT [address] [place] [address] [employer] Operations Specialist Post Acute Care 12/07/21 Invisible Braces Orthodontist Relationship Specialty Start Date End Date Myah Arteaga MD [address] [place] [address] PCP - General Family Medicine 10/08/12 Dawit Carrillo MD [facility] [address] [address] Home Care Provider Orthopedics 12/07/21 Dawit Carrillo MD [facility] [address] [address] Referring Orthopedics 12/07/21 Megan Leon, PT [address] [place] [address] [employer] Operations Specialist Post Acute Care 12/07/21 Invisible Braces Orthodontist Relationship Specialty Start Date End Date Myah Arteaga MD [address] [place] [address] PCP - General Family Medicine 10/08/12 Dawit Carrillo MD [facility] [address] [address] Home Care Provider Orthopedics 12/07/21 Dawit Carrillo MD [facility] [address] [address] Referring Orthopedics 12/07/21 Megan Leon, PT [address] [place] [address] [employer] Operations Specialist Post Acute Care 12/07/21 Invisible Braces Orthodontist Relationship Specialty Start Date End Date Myah Arteaga MD [address] [place] [address] PCP - General Family Medicine 10/08/12 Dawit Carrillo MD [address] [address] Home Care Provider Orthopedics 12/07/21 Dawit Carrillo MD [address] [address] Referring Orthopedics 12/07/21 Megan Leon, PT [address] [place] [address] [employer] Operations Specialist Post Acute Care 12/07/21 Invisible Braces Orthodontist Relationship Specialty Start Date End Date Myah Arteaga MD [address] [place] [address] PCP - General Family Medicine 10/08/12 Dawit Carrillo MD [address] [address] Home Care Provider Orthopedics 12/07/21 Dawit Carrillo MD [address] [address] Referring Orthopedics 12/07/21 Megan Leon, PT [address] [place] [address] [employer] Operations Specialist Post Acute Care 12/07/21 Invisible Braces Orthodontist Relationship Specialty Start Date End Date Myah Arteaga MD [address] [place] [address] PCP - General Family Medicine 10/08/12 Dawit Carrillo MD [address] [address] Home Care Provider Orthopedics 12/07/21 Dawit Carrillo MD [address] [address] Referring Orthopedics 12/07/21 Megan Leon, PT [address] [place] [address] [employer] Operations Specialist Post Acute Care 12/07/21 Invisible Braces Orthodontist Relationship Specialty Start Date End Date Myah Arteaga MD [address] [place] [address] PCP - General Family Medicine 10/08/12 Dawit Carrillo MD [facility] [address] [address] Home Care Provider Orthopedics 12/07/21 Dawit Carrillo MD [address] [address] Referring Orthopedics 12/07/21 Megan Leon, PT [address] [place] [address] [employer] Specialist Post Acute Care 12/07/21 Team Status: Active Member Role Status Dates Dr. Myah Arteaga MD Family Provider Active Dr. Myah Arteaga MD Primary Care Provider Active Team Status: Inactive Member Role Status Dates Dr. Myah Arteaga MD Primary Care Provider Active Dr. Nikhil Kinney DO Emergency Provider Active [employer]aces Orthodontist Relationship Specialty Start Date End Date Myah Arteaga MD [address] [place] [address] PCP - General Family Medicine 10/08/12 Dawit Carrillo MD [address] [place] [address] Home Care Provider Orthopedics 12/07/21 Dawit Carrillo MD [address] [address] Referring Orthopedics 12/07/21 Megan Leon, PT [address] [place] [address] [employer] Specialist Post Acute Care 12/07/21 Team Status: Inactive Member Role Status Dates Dr. Myah Arteaga MD Primary Care Provider Active Dr. Nikhil Kinney DO Attending Provider, Emergency Pro vider Active Team Status: Inactive Member Role Status Dates Dr. Myah Arteaga MD Primary Care Provider Active Dr. Geneva Gray MD Attending Provider, Referring Pr ovider Active [employer] [employer]aces Orthodontist Relationship Specialty Start Date End Date Myah Arteaga MD [address] [place] [address] PCP - General Family Medicine 10/08/12 Dawit Carrillo MD [address] [place] [address] Home Care Provider Orthopedics 12/07/21 Dawit Carrillo MD [address] [address] Referring Orthopedics 12/07/21 Invisible Braces Orthodontist Relationship Specialty Start Date End Date Myah Arteaga MD [address] [place] [address] PCP - General Family Medicine 10/08/12 Dawit Carrillo MD [address] [address] Home Care Provider Orthopedics 12/07/21 Dawit Carrillo MD [address] [address] Referring Orthopedics 12/07/21 Invisible Braces Orthodontist Relationship Specialty Start Date End Date Myah Arteaga MD [address] [place] [address] PCP - General Family Medicine 10/08/12 Dawit Carrillo MD [address] [address] Home Care Provider Orthopedics 12/07/21 Dawit Carrillo MD [facility] [address] [address] Referring Orthopedics 12/07/21 Invisible Braces Orthodontist Relationship Specialty Start Date End Date Myah Arteaga MD [address] [place] [address] PCP - General Family Medicine 10/08/12 Dawit Carrillo MD [address] [place] [address] Home Care Provider Orthopedics 12/07/21 Dawit Carrillo MD [address] [place] [address] Referring Orthopedics 12/07/21 Invisible Braces Orthodontist Relationship Specialty Start Date End Date Myah Arteaga MD [address] [place] [address] PCP - General Family Medicine 10/08/12 Dawit Carrillo MD [facility] [address] [address] Home Care Provider Orthopedics 12/07/21 Dawit Carrillo MD [address] [address] Referring Orthopedics 12/07/21 Invisible Braces Orthodontist Relationship Specialty [place] [address] [place] [address] PCP - General Family Medicine 10/08/12 Dawit Carrillo MD [address] [place] [address] Home Care Provider Orthopedics 12/07/21 Dawit Carrillo MD [address] [place] [address] Referring Orthopedics 12/07/21 Invisible Braces Orthodontist Relationship Specialty Start Date End Date Myah Arteaga MD [address] [place] [address] PCP - General Family Medicine 10/08/12 Dawit Carrillo MD [address] [place] [address] Home Care Provider Orthopedics 12/07/21 Dawit Carrillo MD [address] [place] [address] Referring Orthopedics 12/07/21 Invisible Braces Orthodontist Relationship Specialty Start Date End Date Myah Arteaga MD [address] [place] [address] PCP - General Family Medicine 10/08/12 Dawit Carrillo MD [address] [place] [address] Home Care Provider Orthopedics 12/07/21 Dawit Carrillo MD [address] [address] Referring Orthopedics 12/07/21 Invisible Braces Orthodontist Relationship Specialty Start Date End Date Myah Arteaga MD [address] [place] [address] PCP - General Family Medicine 10/08/12 Dawit Carrillo MD [address] [address] Home Care Provider Orthopedics 12/07/21 Dawit Carrillo MD [facility] [address] [address] Referring Orthopedics 12/07/21 Invisible Braces Orthodontist Relationship Specialty Start Date End Date Myah Arteaga MD [address] [place] [address] PCP - General Family Medicine 10/08/12 Dawit Carrillo MD [facility] [address] [address] Home Care Provider Orthopedics 12/07/21 Dawit Carrillo MD [address] [address]357 Referring Orthopedics 12/07/21 Invisible Braces Orthodontist Relationship Specialty Start Date End Date Myah Arteaga MD [address] [place] [address] PCP - General Family Medicine 10/08/12 Dawit Carrillo MD [address] [address] Home Care Provider Orthopedics 12/07/21 Dawit Carrillo MD [address] 24418 Referring Orthopedics 12/07/21 Invisible Braces Orthodontist Relationship Specialty Start Date End Date Myah Arteaga MD [address] [place] [address] PCP - General Family Medicine 10/08/12 Dawit Carrillo MD [address] [place] [address]90 Home Care Provider Orthopedics 12/07/21 Dawit Carrillo MD [address] [address] Referring Orthopedics 12/07/21 Invisible Braces Orthodontist Relationship Specialty Start Date End Date Myah Arteaga MD [address] [place] [address] PCP - General Family Medicine 10/08/12 Dawit Carrillo MD [address] [address] Home Care Provider Orthopedics 12/07/21 Dawit Carrillo MD [address] [address] Referring Orthopedics 12/07/21 Invisible Braces Orthodontist Relationship Specialty Start Date End Date Myah Arteaga MD [address] [place] [address] PCP - General Family Medicine 10/08/12 Dawit Carrillo MD [address] [address] Home Care Provider Orthopedics 12/07/21 Dawit Carrillo MD [address] [address] Referring Orthopedics 12/07/21 Invisible Braces Orthodontist Relationship Specialty Start Date End Date Myah Arteaga MD [address] [place] [address] PCP - General Family Medicine 10/08/12 Dawit Carrillo MD [facility] [address] [address] Home Care Provider Orthopedics 12/07/21 Dawit Carrillo MD [address] [address] Referring Orthopedics 12/07/21 Invisible Braces Orthodontist Relationship Specialty Start Date End Date Myah Arteaga MD [address] [place] [address] PCP - General Family Medicine 10/08/12 Dawit Carrillo MD [address] [address] Home Care Provider Orthopedics 12/07/21 Dawit Carrillo MD [address] 5[address]19 Referring Orthopedics 12/07/21 Invisible Braces Orthodontist Relationship Specialty Start Date End Date Myah Arteaga MD [address] [place] [address] PCP - General Family Medicine 10/08/12 Dawit Carrillo MD [address] 7[address] Home Care Provider Orthopedics 12/07/21 Dawit Carrillo MD [address] 48328 Referring Orthopedics 12/07/21 Invisible Braces Orthodontist Relationship Specialty Start Date End Date Myah Arteaga MD [address] [place] [address] PCP - General Family Medicine 10/08/12 Dawit Carrillo MD [address] [address] Home Care Provider Orthopedics 12/07/21 Dawit Carrillo MD [address] 97267 Referring Orthopedics 12/07/21 Invisible Braces Orthodontist Relationship Specialty Start Date End Date Myah Arteaga MD [address] [place] [address] PCP - General Family Medicine 10/08/12 Dawit Carrillo MD [address] [address] Home Care Provider Orthopedics 12/07/21 Dawit Carrillo MD [address] [address] Referring Orthopedics 12/07/21 Invisible Braces Orthodontist Relationship Specialty Start Date End Date Myah Arteaga MD [address] [place] [address] PCP - General Family Medicine 10/08/12 Dawit aCrrillo MD [address] [address] Home Care Provider Orthopedics 12/07/21 Dawit Carrillo MD [address] [place] [address] 28137 Referring Orthopedics 12/07/21 Invisible Braces Orthodontist Relationship Specialty Start Date End Date Myah Arteaga MD [address] [place] [address] PCP - General Family Medicine 10/08/12 Dawit Carrillo MD [address] [place] [address] 20378 Home Care Provider Orthopedics 12/07/21 Dawit Carrillo MD [address] [place] [address] 49575 Referring Orthopedics 12/07/21 Invisible Braces Orthodontist Relationship Specialty Start Date End Date Myah Arteaga MD [address] [place], [place] 250531 PCP - General Family Medicine 10/08/12 Dawit Carrillo MD [address] [address] Home Care Provider Orthopedics 12/07/21 Dawit Carrillo MD [address] [address] Referring Orthopedics 12/07/21 Invisible Braces Orthodontist Relationship Specialty Start Date End Date Myah Arteaga MD [address] [place] [address] PCP - General Family Medicine 10/08/12 Dawit Carrillo MD [address] [address] Home Care Provider Orthopedics 12/07/21 Dawit Carrillo MD [address] [place] [address] 60139 Referring Orthopedics 12/07/21 Invisible Braces Orthodontist Relationship Specialty Start Date End Date Myah Arteaga MD [address] [place] [address] PCP - General Family Medicine 10/08/12 Dawit Carrillo MD [facility] [address] [address] Home Care Provider Orthopedics 12/07/21 Dawit Carrillo MD [address] 36516 Referring Orthopedics 12/07/21 Invisible Braces Orthodontist Relationship Specialty Start Date End Date Myah Arteaga MD [address] [place] [address] PCP - General Family Medicine 10/08/12 Dawit Carrillo MD [address] [address] Home Care Provider Orthopedics 12/07/21 Dawit Carrillo MD [address] [place] [address] 47322 Referring Orthopedics 12/07/21 Invisible Braces Orthodontist Relationship Specialty Start Date End Date Myah Arteaga MD [address] [place] [address]78 PCP - General Family Medicine 10/08/12 Dawit Carrillo MD [address] [place] [address] 39922 Home Care Provider Orthopedics 12/07/21 Dawit Carrillo MD [address] [place] [address] 20093 Referring Orthopedics 12/07/21 Invisible Braces Orthodontist Relationship Specialty Start Date End Date Myah Arteaga MD [address] [place] [address]406 PCP - General Family Medicine 10/08/12 Dawit Carrillo MD [address] [place] [address] 86436 Home Care Provider Orthopedics 12/07/21 Dawit Carrillo MD [address] [place] [address] 21858 Referring Orthopedics 12/07/21 Invisible Braces Orthodontist Relationship Specialty Start Date End Date Myah Arteaga MD [address] [place], [place] 274571 PCP - General Family Medicine 10/08/12 Dawit Carrillo MD [address] 73720 Home Care Provider Orthopedics 12/07/21 Dawit Carrillo MD [address] 0[address] Referring Orthopedics 12/07/21 Invisible Braces Orthodontist Relationship Specialty Start Date End Date Myah Arteaga MD [address] [place] [address] PCP - General Family Medicine 10/08/12 Dawit Carrillo MD [address] 46731 Home Care Provider Orthopedics 12/07/21 Dawit Carrillo MD [address] 82709 Referring Orthopedics 12/07/21 Invisible Braces Orthodontist Relationship Specialty Start Date End Date Myah Arteaga MD [address] [place] [address] PCP - General Family Medicine 10/08/12 Dawit Carrillo MD [address] [address] Home Care Provider Orthopedics 12/07/21 Dawit Carrillo MD [address] 40565 Referring Orthopedics 12/07/21 Invisible Braces Orthodontist Relationship Specialty Start Date End Date Myah Arteaga MD [address] [place] [address] PCP - General Family Medicine 10/08/12 Dawit Carrillo MD [address] 19783 Home Care Provider Orthopedics 12/07/21 Dawit Carrillo MD [address] [place] [address] 60451 Referring Orthopedics 12/07/21 Invisible Braces Orthodontist Relationship Specialty Start Date End Date Myah Arteaga MD [address] [place] [address] PCP - General Family Medicine 10/08/12 Dawit Carrillo MD [address] [place] [address] 34036 Home Care Provider Orthopedics 12/07/21 Dawit Carrillo MD [address] [place] [address] 94678 Referring Orthopedics 12/07/21 Invisible Braces Orthodontist Relationship Specialty Start Date End Date Myah Arteaga MD [address] [place] [address] PCP - General Family Medicine 10/08/12 Dawit Carrillo MD [address] 70422 Home Care Provider Orthopedics 12/07/21 Dawit Carrillo MD [address] [place] [address] 46132 Referring Orthopedics 12/07/21 Invisible Braces Orthodontist Relationship Specialty Start Date End Date Myah Arteaga MD [address] [place] [address] PCP - General Family Medicine 10/08/12 Dawit Carrillo MD [address] [place] [address] 02332 Home Care Provider Orthopedics 12/07/21 Dawit Carrillo MD [address] [place] [address] 79450 Referring Orthopedics 12/07/21 Invisible Braces Orthodontist Relationship Specialty Start Date End Date Myah Arteaga MD [address] [place] [address] PCP - General Family Medicine 10/08/12 Dawit Carrillo MD [address] [place] [address] 29522 Home Care Provider Orthopedics 12/07/21 Dawit Carrillo MD [address] [place] [address] 75743 Referring Orthopedics 12/07/21 Invisible Braces Orthodontist Relationship Specialty Start Date End Date Myah Arteaga MD [address] [place] [address] PCP - General Family Medicine 10/08/12 Dawit Carrillo MD [address] 7[address] Home Care Provider Orthopedics 12/07/21 Dawit Carrillo MD [address] 14844 Referring Orthopedics 12/07/21 Invisible Braces Orthodontist Relationship Specialty Start Date End Date Myah Arteaga MD [address] [place] [address] PCP - General Family Medicine 10/08/12 Dawit Carrillo MD [address] 90058 Home Care Provider Orthopedics 12/07/21 Dawit Carrillo MD [address] [place] [address] 33540 Referring Orthopedics 12/07/21 Invisible Braces Orthodontist Relationship Specialty Start Date End Date Myah Arteaga MD [address] [place] [address] PCP - General Family Medicine 10/08/12 Dawit Carrillo MD [address] [place] [address] 54716 Home Care Provider Orthopedics 12/07/21 Dawit Carrillo MD [address] [address] Referring Orthopedics 12/07/21 Invisible Braces Orthodontist Relationship Specialty Start Date End Date Myah Arteaga MD [address] [place] [address] PCP - General Family Medicine 10/08/12 Dawit Carrillo MD [address] 27990 Home Care Provider Orthopedics 12/07/21 Dawit Carrillo MD [address] [place] [address] 98455 Referring Orthopedics 12/07/21 Invisible Braces Orthodontist Relationship Specialty Start Date End Date Myah Arteaga MD [address] [place] [address] PCP - General Family Medicine 10/08/12 Dawit Carrillo MD [address] [place] [address] 49489 Home Care Provider Orthopedics 12/07/21 Dawit Carrillo MD [address] [place] [address] 29172 Referring Orthopedics 12/07/21 Megan Leon, PT [address] [place] [address] [employer] Specialist Post Acute Care 12/07/21 05/29/23 Invisible Braces Orthodontist Relationship Specialty Start Date End Date Myah Arteaga MD [address] [place] [address] PCP - General Family Medicine 10/08/12 Invisible Braces Orthodontist Relationship Specialty Start Date End Date Myah Arteaga MD [address] [place], [place] 751651 PCP - General Family Medicine 10/08/12 Dawit Carrillo MD [address] [place] [address] 56310 Home Care Provider Orthopedics 12/07/21 Dawit Carrillo MD [address] 8[address] Referring Orthopedics 12/07/21 Invisible Braces Orthodontist Relationship Specialty Start Date End Date Myah Arteaga MD [address] [place] [address] PCP - General Family Medicine 10/08/12 Invisible Braces Orthodontist Relationship Specialty Start Date End Date Myah Arteaga MD [address] [place] [address] PCP - General Family Medicine 10/08/12 Dawit Carrillo MD [address] 0[address]25 Home Care Provider Orthopedics 12/07/21 Dawit Carrillo MD [address] 5[address]20 Referring Orthopedics 12/07/21 Invisible Braces Orthodontist Relationship Specialty Start Date End Date Myah Arteaga MD [address] [place] [address] PCP - General Family Medicine 10/08/12 Dawit Carrillo MD [address] 6[address]20 Home Care Provider Orthopedics 12/07/21 Dawit Carrillo MD [address] 02755 Referring Orthopedics 12/07/21 Invisible Braces Orthodontist Relationship Specialty Start Date End Date Myah Arteaga MD [address] [place] [address] PCP - General Family Medicine 10/08/12 Dawit Carrillo MD [address] [place] [address] 65671 Home Care Provider Orthopedics 12/07/21 Dawit Carrillo MD [address] [place] [address] 36141 Referring Orthopedics 12/07/21 Invisible Braces Orthodontist Relationship Specialty Start Date End Date Myah Arteaga MD [address] [place] [address] PCP - General Family Medicine 10/08/12 Dawit Carrillo MD [address] [place] [address] 95947 Home Care Provider Orthopedics 12/07/21 Dawit Carrillo MD [address] [place] [address] 71354 Referring Orthopedics 12/07/21 Invisible Braces Orthodontist Relationship Specialty Start Date End Date Myah Arteaga MD [address] [place] [address] PCP - General Family Medicine 10/08/12 Dawit Carrillo MD [address] [place] [address] 96898 Home Care Provider Orthopedics 12/07/21 Dawit Carrillo MD [address] [place] [address] 54445 Referring Orthopedics 12/07/21 Invisible Braces Orthodontist Relationship Specialty Start Date End Date Myah Arteaga MD [address] [place] [address] PCP - General Family Medicine 10/08/12 Dawit Carrillo MD [address] 28041 Home Care Provider Orthopedics 12/07/21 Dawit Carrillo MD [address] 00712 Referring Orthopedics 12/07/21 Invisible Braces Orthodontist Relationship Specialty Start Date End Date Myah Arteaga MD [address] [place] [address] PCP - General Family Medicine 10/08/12 Dawit Carrillo MD [address] 88374 Home Care Provider Orthopedics 12/07/21 Dawit Carrillo MD [address] 24864 Referring Orthopedics 12/07/21 Invisible Braces Orthodontist Relationship Specialty Start Date End Date Myah Arteaga MD [address] [place] [address] PCP - General Family Medicine 10/08/12 Dawit Carrillo MD [address] 55514 Home Care Provider Orthopedics 12/07/21 Dawit Carrillo MD [address] 31375 Referring Orthopedics 12/07/21 Invisible Braces Orthodontist Relationship Specialty Start Date End Date Myah Arteaga MD [address] [place] [address] PCP - General Family Medicine 10/08/12 Dawit Carrillo MD [address] 66289 Home Care Provider Orthopedics 12/07/21 Dawit Carrillo MD [address] [place] [address] 83208 Referring Orthopedics 12/07/21 Invisible Braces Orthodontist Relationship Specialty Start Date End Date Myah Arteaga MD [address] [place] [address] PCP - General Family Medicine 10/08/12 Dawit Carrillo MD [address] [place] [address] 61914 Home Care Provider Orthopedics 12/07/21 Dawit Carrillo MD [address] 11275 Referring Orthopedics 12/07/21 Invisible Braces Orthodontist Relationship Specialty Start Date End Date Myah Arteaga MD [address] [place] [address] PCP - General Family Medicine 10/08/12 Dawit Carrillo MD [address] [address]51 Home Care Provider Orthopedics 12/07/21 Dawit Carrillo MD [address] 6[address]01 Referring Orthopedics 12/07/21 Marita Moore APRN.LEATHER SORTER [address] [place] [address] [facility] 10/07/24 Tara Hilliard APRN.LEATHER SORTER [address] [place] [address] [facility] 10/07/24 Invisible Braces Orthodontist Relationship Specialty Start Date End Date Myah Arteaga MD [address] [place] [address] PCP - General Family Medicine 10/08/12 Dawit Carrillo MD [address] 32931 Home Care Provider Orthopedics 12/07/21 Dawit Carrillo MD [address] 60626 Referring Orthopedics 12/07/21 Marita Moore APRN.LEATHER SORTER [address] [place] [address] [facility] 10/07/24 Tara Hilliard APRN.LEATHER SORTER [address] [place] [address] [facility] 10/07/24 Invisible Braces Orthodontist Relationship Specialty Start Date End Date Myah Arteaga MD [address] [place] [address] PCP - General Family Medicine 10/08/12 Dawit Carrillo MD [address] 57082 Home Care Provider Orthopedics 12/07/21 Dawit Carrillo MD [address] 45196 Referring Orthopedics 12/07/21 Marita Moore APRN.LEATHER SORTER [address] [place] [address] [facility] 10/07/24 Tara Hilliard SHIFT BOSS.LEATHER SORTER [address] [place] [address] [facility] 10/07/24 Invisible Braces Orthodontist Relationship Specialty Start Date End Date Myah Arteaga MD [address] [place] [address] PCP - General Family Medicine 10/08/12 Dawit Carrillo MD [address] 53336 Home Care Provider Orthopedics 12/07/21 Dawit Carrillo MD [address] 32198 Referring Orthopedics 12/07/21 Marita Moore APRN.LEATHER SORTER [address] [place] [address] [facility] 10/07/24 Tara Hilliard SHIFT BOSS.LEATHER SORTER [address] [place] [address] [facility] 10/07/24 Invisible Braces Orthodontist Relationship Specialty Start Date End Date Myah Arteaga MD [address] [place] [address] PCP - General Family Medicine 10/08/12 Dawit Carrillo MD [address] [place] [address] 64527256 Home Care Provider Orthopedics 12/07/21 Dawit Carrillo MD [address] [place] [address] 65153 Referring Orthopedics 12/07/21 Marita Moore APRN.LEATHER SORTER [address] [place] [address] [facility] 10/07/24 Tara Hilliard, SHIFT BOSS.LEATHER SORTER [address] [place] [address] [facility] 10/07/24 Invisible Braces Orthodontist Relationship Specialty Start Date End Date Myah Arteaga MD [address] [place] [address] PCP - General Family Medicine 10/08/12 Dawit Carrillo MD [address] [place] [address] 69749256 Home Care Provider Orthopedics 12/07/21 Dawit Carrillo MD [address] [address]150 Referring Orthopedics 12/07/21 Marita Moore APRN.LEATHER SORTER [address] [place] [address] [facility] 10/07/24 Tara Hilliard APRN.LEATHER SORTER [address] [place] [address] [facility] 10/07/24 Invisible Braces Orthodontist Relationship Specialty Start Date End Date Myah Arteaga MD [address] [place] [address] PCP - General Family Medicine 10/08/12 Dawit Carrillo MD [address] 21903 Home Care Provider Orthopedics 12/07/21 Dawit Carrillo MD [address] 59592 Referring Orthopedics 12/07/21 Marita Moore APRN.LEATHER SORTER [address] [place] [address] [facility] 10/07/24 Tara Hilliard APRN.LEATHER SORTER [address] [place] [address] [facility] 10/07/24 Invisible Braces Orthodontist Relationship Specialty Start Date End Date Myah Arteaga MD [address] [place] [address] PCP - General Family Medicine 10/08/12 Dawit Carrillo MD [address] 07631 Home Care Provider Orthopedics 12/07/21 Dawit Carrillo MD [address] 74386 Referring Orthopedics 12/07/21 Marita Moore APRN.LEATHER SORTER [address] [place] [address] [facility] 10/07/24 Tara Hilliard APRN.LEATHER SORTER [address] [place] [address] [facility] 10/07/24 Invisible Braces Orthodontist Relationship Specialty Start Date End Date Myah Arteaga MD [address] [place] [address] PCP - General Family Medicine 10/08/12 Dawit Carrillo MD [address] 27774 Home Care Provider Orthopedics 12/07/21 Dawit Carrillo MD [address] 63218 Referring Orthopedics 12/07/21 Marita Moore APRN.LEATHER SORTER [address] [place], [place] [address]31 [facility] 10/07/24 Tara Hilliard, SHIFT BOSS.LEATHER SORTER [address] [place] [address] [facility] 10/07/24 Invisible Braces Orthodontist Relationship Specialty Start Date End Date Myah Arteaga MD [address] [place] [address] PCP - General Family Medicine 10/08/12 Dawit Carrillo MD [address] 7[address]68 Home Care Provider Orthopedics 12/07/21 Dawit Carrillo MD [facility] [address] [address]645 Referring Orthopedics 12/07/21 Marita Moore, SHIFT BOSS.LEATHER SORTER [address] [place] [address] [facility] 10/07/24 Tara Hilliard, SHIFT BOSS.LEATHER SORTER [address] [place] [address] [facility] 10/07/24 Invisible Braces Orthodontist Relationship Specialty Start Date End Date Myah Arteaga MD [address] [place] [address] PCP - General Family Medicine 10/08/12 Dawit Carrillo MD [address] 20082 Home Care Provider Orthopedics 12/07/21 Dawit Carrillo MD [address] [place] [address] 98855 Referring Orthopedics 12/07/21 Marita Moore APRN.LEATHER SORTER [address] [place] [address] [facility] 10/07/24 Tara Hilliard APRN.LEATHER SORTER [address] [place] [address] [facility] 10/07/24 Invisible Braces Orthodontist Relationship Specialty Start Date End Date Myah Arteaga MD [address] [place] [address] PCP - General Family Medicine 10/08/12 Dawit Carrillo MD [address] [place] [address] 58419 Home Care Provider Orthopedics 12/07/21 Dawit Carrillo MD [address] [place] [address] 12155 Referring Orthopedics 12/07/21 Marita Moore APRN.LEATHER SORTER [address] [place] [address] [facility] 10/07/24 Tara Hilliard SHIFT BOSS.LEATHER SORTER [address] [place] [address] [facility] 10/07/24 Invisible Braces Orthodontist Relationship Specialty Start Date End Date Myah Arteaga MD [address] [place], [place] 396301 PCP - General Family Medicine 10/08/12 Dawit Carrillo MD [address] 31621 Home Care Provider Orthopedics 12/07/21 Dawit Carrillo MD [address] 50109 Referring Orthopedics 12/07/21 Marita Moore APRN.LEATHER SORTER [address] [place] [address] [facility] 10/07/24 Tara Hilliard APRN.LEATHER SORTER [address] [place] [address] [facility]/07/24 Invisible Braces Orthodontist Relationship Specialty Start Date End Date Myah Arteaga MD [address] [place] [address] PCP - General Family Medicine 10/08/12 Dawit Carrillo MD [address] 40265 Home Care Provider Orthopedics 12/07/21 Dawit Carrillo MD [address] 16673 Referring Orthopedics 12/07/21 Marita Moore APRN.LEATHER SORTER [address] [place] [address] [facility] 10/07/24 Tara Hilliard APRN.LEATHER SORTER [address] [place] [address] [facility] 10/07/24 Invisible Braces Orthodontist Relationship Specialty Start Date End Date Myah Arteaga MD [address] [place] [address] PCP - General Family Medicine 10/08/12 Dawit Carrillo MD [address] [address]24 Home Care Provider Orthopedics 12/07/21 Dawit Carrillo MD [address] [address] Referring Orthopedics 12/07/21 Marita Moore APRN.LEATHER SORTER [address] [place] [address] [facility] 10/07/24 Tara Hilliard APRN.LEATHER SORTER [address] [place] [address] [facility] 10/07/24 Invisible Braces Orthodontist Relationship Specialty Start Date End Date Myah Arteaga MD [address] [place] [address] PCP - General Family Medicine 10/08/12 Dawit Carrillo MD [address] [address]60 Home Care Provider Orthopedics 12/07/21 Dawit Carrillo MD [address] 25878 Referring Orthopedics 12/07/21 Marita Moore, SHIFT BOSS.LEATHER SORTER [address] [place] [address] [facility] 10/07/24 Tara Hilliard SHIFT BOSS.LEATHER SORTER [address] [place] [address] [facility] 10/07/24 Invisible Braces Orthodontist Relationship Specialty Start Date End Date Myah Arteaga MD [address] [place], [place] 870041 PCP - General Family Medicine 10/08/12 Dawit Carrillo MD [address] [place] [address] 75043 Home Care Provider Orthopedics 12/07/21 Dawit Carrillo MD [address] [place] [address] 46900 Referring Orthopedics 12/07/21 Marita Moore, SHIFT BOSS.LEATHER SORTER [address] [place] [address] [facility] 10/07/24 Tara Hilliard SHIFT BOSS.LEATHER SORTER [address] [place] [address] [facility] 10/07/24 Invisible Braces Orthodontist Relationship Specialty Start Date End Date Myah Arteaga MD [address] [place] [address] PCP - General Family Medicine 10/08/12 Dawit Carrillo MD [address] [address] Home Care Provider Orthopedics 12/07/21 Dawit Carrillo MD [address] [place] [id number] Referring Orthopedics 12/07/21 Marita Moore APRN.LEATHER SORTER [address] [place] [address] [facility] 10/07/24 Tara Hilliard APRN.LEATHER SORTER [address] [place] [address] [facility] 10/07/24 Invisible Braces Orthodontist Relationship Specialty Start Date End Date Myah Arteaga MD [address] [place] [address] PCP - General Family Medicine 10/08/12 Dawit Carrillo MD [address] [place] [address] Home Care Provider Orthopedics 12/07/21 Dawit Carrillo MD [address] [place] [address] Referring Orthopedics 12/07/21 Marita Moore APRN.LEATHER SORTER [address] [place] [address] [facility] 10/07/24 Tara Hilliard APRN.LEATHER SORTER [address] [place] [address] [facility]24 Invisible Braces Orthodontist Relationship Specialty Start Date End Date Myah Arteaga MD [address] [place], [place] [address] PCP - General Family Medicine 10/08/12 Dawit Carrillo MD [address] [address] Home Care Provider Orthopedics 12/07/21 Dawit Carrillo MD [address] [address] Referring Orthopedics 12/07/21 Marita Moore SHIFT BOSS.LEATHER SORTER [address] [place] [address] [facility] 10/07/24 Tara Hilliard SHIFT BOSS.LEATHER SORTER [address] [place] [address] [facility] 10/07/24 Invisible Braces Orthodontist Relationship Specialty Start Date End Date Myah Arteaga MD [address] [place] [address] PCP - General Family Medicine 10/08/12 Dawit Carrillo MD [address] [address] Home Care Provider Orthopedics 12/07/21 Dawit Carrillo MD [address] [address] Referring Orthopedics 12/07/21 Marita Moore SHIFT BOSS.LEATHER SORTER [address] [place] [address] [facility] 10/07/24 Tara Hilliard APRN.LEATHER SORTER [address] [place] [address] [facility] 10/07/24 Goals (unrecognized section and content) Goals may be documented in a n alternate sectionGoals may be documented in an alternate sectionGoals may be documented in an alternate sectionGoals may be documented in an alternate section FOR RECORDS PERTAINING TO PATIENTS WHO ARE OR HAVE BEEN ENROLLED IN A CHEMICAL DEPENDENCY/SUBSTANCEABUSE PROGRAM, SOME INFORMATION MAY BE OMITTED. This clinical summary was aggregated from multiple sources. Caution should be exercised in using it in the provision of clinical care. This summary normalizes information from multiple sources, and as a consequence, information in this document may materially change the coding, format and clinical context of patient data. In addition, data may be omitted in some cases. CLINICAL DECISIONS SHOULD BE BASED ON THE PRIMARY CLINICAL RECORDS. [facility] [employer] [facility]. provides no warranty or guarantee of the accuracy or completeness of information in this document.
--- NOTE | 2025-10-27 01:29 | RAD_ITS ---
PROCEDURE: FOOT MIN 3 VIEWS 10/27/2025 REASON FOR EXAM: INJURY TECHNIQUE: Procedure Code: RADFO Modality: DX Procedure: FOOT MIN 3 VIEWS COMPARISON: None. FINDINGS: Soft tissue edema and swelling overlying the lateral malleolus. Normal talus, calcaneus, and tarsal bones. Normal visualized subtalar, talonavicular, calcaneocuboid, tarsal and tarsometatarsal articulations. Normal metatarsi. Normal metatarsophalangeal joint of the great toe. Normal tibial and fibular sesamoid bones. Normal interphalangeal joint of the great toe. Normal phalanges of the great toe. Normal second through fifth metatarsophalangeal joints. Normal interphalangeal joints of the lesser toes. Normal phalanges of the lesser toes. RAD/Foot min 3 Views IMPRESSION: Soft tissue edema and swelling overlying the lateral malleolus. Reading [facility]
--- NOTE | 2025-10-27 01:29 | RAD_ITS ---
PROCEDURE: ANKLE MIN 3 VIEWS 10/27/2025 REASON FOR EXAM: INJURY TECHNIQUE: Procedure Code: RADANK Modality: DX Procedure: ANKLE MIN 3 VIEWS Laterality: Right. COMPARISON: None. FINDINGS: Soft tissue edema and swelling overlying the lateral malleolus. Normal visualized distal tibia and medial malleolus. Normal visualized distal fibula and lateral malleolus. Normal tibiotalar articulation and ankle mortise. Normal visualized talus. Normal visualized calcaneus. The visualized subtalar, talonavicular, calcaneocuboid and tarsal articulations are normal. RAD/Ankle min 3 Views IMPRESSION: Soft tissue edema and swelling overlying the lateral malleolus. No radiographic evidence of an acute bone abnormality. Reading Location[facility]
--- NOTE | 2025-10-27 01:29 | RAD_ITS ---
PROCEDURE: TIBIA FIBULA 2 VIEWS 10/27/2025 REASON FOR EXAM: INJURY TECHNIQUE: Procedure Code: RADTF Modality: DX Procedure: TIBIA FIBULA 2 VIEWS COMPARISON: None. FINDINGS: Soft tissue edema and swelling overlying the lateral malleolus. Normal visualized tibia. Normal visualized fibula. RAD/Tibia & Fibula 2 Views IMPRESSION: Soft tissue edema and swelling overlying the lateral malleolus. Reading [facility]
--- NOTE | 2025-10-27 02:29 | EDS_ITS ---
HPI History of Present Illness Chief Complaint: Lower Extremity Injury Informant: patient and spouse/S.O. 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 He states because of this he does not feel much in his right lower leg and will fall frequently. He states that multiple hours ago he tripped while walking through the house and fell. He states he did not strike his head or have loss of consciousness. He denies any history of bleeding disorder or blood thinner use. He states he was able to get back up and continue walking and even did further work with his in the evening but with painting the basement. He states he came upstairs to get a shower and when he went to take his clothes off and noticed his right ankle was swollen and bruised. He has concern for underlying trauma with the swelling and bruising and previous fall and secondary to this comes in for evaluation [facility] Medical History (Updated 10/27/25 @ 04:[address] Oral Zuleta, DO) COVID-19 Erectile dysfunction AMANDA on CPAP Morbid obesity Anxiety and depression Hypertension Home Medications ?Medication ?Instructions ?Recorded ?Last Taken ?Type tadalafil 20 mg tablet 20 mg PO ONCE PRN ed 8 Unknown History acetaminophen 500 mg tablet 500 mg PO Q6H PRN fever or pain 07/17/24 Unknown History clonazepam 1 mg tablet 1 mg PO QHS PRN PRN sleep 07/16/24 History ergocalciferol (vitamin D2) 1,250 1,250 mcg PO QWEEK S leep apnea 07/18/24 07/17/24 History mcg (50,000 unit) capsule (Vitamin D2) losartan 50 mg tablet 50 mg PO DAILY B/P 07/18/24 07/17/24 History testosterone 1 % (25 mg/2.5 gram) transdermal low test osterone 07/18/24 07/17/24 History transdermal gel packet tramadol 50 mg tablet 50 mg PO BID PRN PRN pain 07/17/24 History dexamethasone 6 mg tablet 6 mg PO DAILY #8 tabs Unknown Rx Allergy/AdvReac Type Severity Reaction Status Date / Time Penicillins Allergy Rash Verified 10/27/25 00:58 Sulfa (Sulfonamide Allergy Rash Verified 10/27/25 00:58 Antibiotics) celecoxib (From Celebrex) AdvReac Rash Verified 10/27/25 00:58 Family History Father Cancer Mother CVA (cerebral vascular accident) Heart disease Surgical History History of cholecystectomy History of left hip replacement h/o wrist surgery Social History (Updated 07/17/24 @ 21:[address] Madhuri Gregg MD) household members: spouse Smoking Status: Never smoker alcohol intake: never substance use type: does not use ROS ROS ED Constitutional Constitutional ED: Denies chills or fever(s) Eyes Eyes: Denies change in vision Cardiovascular Cardiovascular: Reports other Details: Negative syncope ; Denies chest pain, palpitations or racing heartbeat Respiratory/Chest Respiratory/Chest: Denies cough or dyspnea Gastrointestinal Gastrointestinal: Denies abdominal pain, diarrhea, nausea or vomiting Musculoskeletal Musculoskeletal: Denies back pain or neck pain Integumentary Reports other Details: Positive right ankle swelling and bruising Neurologic Neurologic: Reports paresthesias and other Details: Patient reports paresthesias are chronic secondary to history of nervous compression ; Denies headache(s) Psychiatric Psychiatric: Reports anxiety and depression Hematologic/Lymphatic Hematologic/Lymphatic: Denies easy bleeding or easy bruising EXAM Physical Exam Const Vital Signs: 10/27/25 00:55 10/27/25 00:58 10/27/25 02:38 Temperature 98.1 F 98.1 F Temperature Source Oral Pulse Rate 77 77 Respiratory Rate 16 16 Blood Pressure 142/92 H 142/92 H Blood Pressure Mean 108 108 Pulse Ox 98 98 Oxygen Delivery Method Room Air 10/27/25 03:00 Temperature Temperature Source Pulse Rate Respiratory Rate Blood Pressure 135/86 H Blood Pressure Mean 102 Pulse Ox Oxygen Delivery Method Positive well nourished, well developed and obese General Appearance ED: well developed Nutritional Appearance: obese HEENT HEENT Narrative: Normocephalic atraumatic Eyes PERRL and EOMs intact bilaterally Neck supple Resp normal respiratory effort and clear to auscultation bilaterally Cardio regular rate and regular rhythm Extremity Extremity Narrative: Patient has soft tissue swelling with ecchymosis around the right lateral malleolus concerning for bony injury. However no obvious bony deformity or joint effusion. 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 He reported a mechanical fall and therefore I felt no need for cardiac or syncope workup. He had no sign of head injury or neck pain and my concern for traumatic subarachnoid or subdural hematoma or cervical compression fracture is low and I feel no need for CT scan. As the patient has chronic numbness tingling and weakness of his right leg secondary to nerve is compression from his back and physical exam shows bruising and swelling around the right ankle there is concern for a distal fibula fracture versus bimalleolar or trimalleolar fracture. Because of this x-rays of the right tibia/fibula ankle and foot were obtained. X-ray revealed soft tissue swelling without obvious fracture or dislocation. Therefore as the patient does not have an acute fracture or signs of compartment syndrome there is no need for further intervention other than stabilization of the ankle joint with a walking boot. He already has an appointment with podiatry in the next week or so and can follow-up with them regarding potential need for MRI to assess ligamentous injury or occult fracture but this time as his workup does not reveal signs of acute fracture or dislocation and there are no signs of compartment syndrome he is otherwise safe for discharge History & Record Review Discussion w/independent historian: Patient and Significant other Radiography Diagnostic Testing: Clinical Impression(s) from Imaging Studies Ankle X-Ray 10/27/25 01:29 IMPRESSION: Soft tissue edema and swelling overlying the lateral malleolus. No radiographic evidence of an acute bone abnormality. Reading Location[facility] Foot X-Ray 10/27/25 01:29 IMPRESSION: Soft tissue edema and swelling overlying the lateral malleolus. Reading Location: [id number] Tibia/Fibula X-Ray 10/27/25 01:29 IMPRESSION: Soft tissue edema and swelling overlying the lateral malleolus. Reading Location: [id number] Right ankle x-ray as interpreted by the emergency medicine physician reveals swelling around the lateral malleolus without acute fracture or dislocation Right foot x-ray as interpreted by the emergency medicine physician reveals no acute fracture or dislocation Right tibia/fibula x-ray as interpreted by the emergency medicine physician reveals no acute fracture or dislocation Discharge Plan Triage Chief Complaint: Lower Extremity Injury ED Provider: Oral Zuleta Dx/Rx/DC Orders Clinical Impression: Right ankle sprain, Hypertension, Anxiety and depression Instructions: ED Ankle Sprain (Adult) Prescriptions: No Action tadalafil 20 mg tablet 20 mg PO ONCE PRN (Reason: ed) acetaminophen 500 mg tablet 500 mg PO Q6H PRN (Reason: fever or pain) clonazepam 1 mg tablet 1 mg PO QHS PRN PRN (Reason: sleep) ergocalciferol (vitamin D2) [Vitamin D2] 1,250 mcg (50,000 unit) capsule 1,250 mcg PO QWEEK losartan 50 mg tablet 50 mg PO DAILY testosterone 1 % (25 mg/2.5gram) gel in packet transdermal tramadol 50 mg tablet 50 mg PO BID PRN PRN (Reason: pain) dexamethasone 6 mg tablet 6 mg PO DAILY Qty: 8 0RF Primary Care Provider: Collin Rogers Referrals: Collin Rogers MD [Primary Care Provider, Medical] Activity Restrictions/Additional Instructions: Your x-ray revealed no obvious fracture or dislocation. However because of the swelling and bruising there is concern for a occult/missed fracture or potential stabilizing ligament tear. Please follow-up with podiatry for further evaluation of this and discuss potential need for MRI for further diagnostic accuracy if needed. Please wear your walking boot to help stabilize the injury until you are seen by podiatry and continue to ice the area for 10 to 20 minutes 2-3 times a day to help reduce pain and swelling. Return to the ER should you have any further concern Print Language: Latvian Disposition Disposition: Home, Self Care Discharge Date/Time: 10/27/25 03:02
[2025-10-27 02:38] VITALS: BP 142/92; PULSE 77; RESP 16; TEMP 36.7; O2SAT 98
[2025-10-27 03:00] VITALS: BP 135/86
== END 2025-10-27 03:02 | disposition home or self-care (01) ==
PROVIDERS: Emergency Provider Emergency Medicine; PCP Family Medicine; Visit Provider Emergency Medicine
DX: S93.401A Sprain of unspecified ligament of right ankle, initial encounter (principal); F41.9 Anxiety disorder, unspecified; I10 Essential (primary) hypertension; F32.A Depression, unspecified; G47.33 Obstructive sleep apnea (adult) (pediatric); E66.9 Obesity, unspecified; W19.XXXA Unspecified fall, initial encounter; Z86.16 Personal history of COVID-19
CPT/HCPCS: 73590; 73610; 73630; 99283